=== PATIENT | male | born 1950 | race Caucasian/White ===

== ENCOUNTER 2018-01-11 16:33 | Inpatient (IN) | payer OTHER, BC ==
--- OUTSIDE RECORDS SUMMARY | 2018-01-11 16:50 | XMS REPORT | Clinical Summary ---
:1950 Author Organization [facility] Address [address] [place] [address] Care Team Providers Name Role Phone Drew Stewart MD Primary Care Provider Allergies Active Allergy Reactions Severity Noted Date Comments Sulfa (Sulfonamide Antibiotics) Rash Low 08/15/2017 Current Medications Prescription Sig. Disp. Refills Start End Date Status Date warfarin (COUMADIN) , 30 tablet 1 11/17/19 Active 3 MG tablet 8 19 baclofen (LIORESAL) Take 1 tablet (10 90 tablet 3 01/13/20 Active 10 MG tablet mg total) by 8 18 mouth every 8 (eight) hours for 30 days. simvastatin (ZOCOR) 11 Active 20 MG tablet 8 aspirin (ECOTRIN) Take 81 mg by Active 81 MG enteric mouth daily. coated tablet amIODarone Take 200 mg by Active (PACERONE) 200 MG mouth daily. tablet doxazosin (CARDURA) Take 1 mg by Active 1 MG tablet mouth nightly. escitalopram Take 20 mg by Active (LEXAPRO) 20 MG mouth daily. tablet ramipril (ALTACE) Take 10 mg by Active 10 MG capsule mouth 3 (three) times a day. ALPRAZolam (XANAX) Take 0.25 mg by 09/19/19 Discontinued 0.25 MG tablet mouth 2 (two) 18 times a day as needed for anxiety. ramipril (ALTACE) Take 10 mg by 09/19/19 Discontinued 10 MG capsule mouth 2 (two) 18 times a day. amLODIPine Take 5 mg by 09/19/19 Discontinued (NORVASC) 5 mg mouth 2 (two) 18 tablet times a day. aspirin (ECOTRIN) Take 81 mg by 09/19/19 Discontinued 81 MG enteric mouth daily. 18 coated tablet doxazosin (CARDURA) Take 1 mg by 09/19/19 Discontinued 1 MG tablet mouth 2 (two) 18 times a day. escitalopram Take 20 mg by 09/19/19 Discontinued (LEXAPRO) 20 MG mouth nightly. 18 tablet ezetimibe (ZETIA) Take 10 mg by 09/19/19 Discontinued 10 mg tablet mouth daily. 18 cyanocobalamin 100 Take 100 mcg by 11/18/19 Discontinued MCG tablet mouth daily. 18 esomeprazole Take 20 mg by 09/19/19 Discontinued (NexIUM 24HR) 20 MG mouth daily 18 capsule before breakfast. doxazosin (CARDURA) Take 1 tablet (1 60 tablet 0 10/08/19 1 MG tablet mg total) by 8 18 mouth 2 (two) times a day for 30 days. acetaminophen Take 2 tablets 10/08/19 (TYLENOL) 325 MG (650 mg total) by 8 18 tablet mouth every 6 (six) hours as needed for fever (GREATER than 100.4) for up to 30 days. acetaminophen Take 20.3 mL (650 10/08/19 (TYLENOL) 650 mg total) by 8 18 mg/20.3 mL solution mouth every 6 (six) hours as needed (GREATER than 100.4) for up to 30 days. acetaminophen Insert 1 10/08/19 (TYLENOL) 650 MG suppository (650 8 18 suppository mg total) into the rectum every 6 (six) hours as needed for fever (GREATER than 100.4) for up to 30 days. amIODarone Take 1 tablet 60 tablet 0 10/08/19 (PACERONE) 200 MG (200 mg total) by 8 18 tablet mouth 2 (two) times a day for 30 days. ipratropium Take 2.5 mL (0.5 75 mL 10/08/19 (ATROVENT) 0.02 % mg total) by 8 18 nebulizer solution nebulization 2 (two) times a day for 30 days. ondansetron ODT Take 1 tablet (4 10/08/19 (ZOFRAN-ODT) 4 MG mg total) by 8 18 disintegrating mouth every 8 tablet (eight) hours as needed for nausea or vomiting for up to 30 days. ondansetron Infuse 2 mL (4 mg 20 mL 10/08/19 (ZOFRAN) 4 mg/2 mL total) into a 8 18 injection venous catheter every 8 (eight) hours as needed for nausea or vomiting for up to 30 days. simvastatin (ZOCOR) Take 1 tablet (20 30 tablet 0 10/08/19 20 MG tablet mg total) by 8 18 mouth nightly for 30 days. ramipril (ALTACE) Take 1 capsule 60 capsule 0 10/08/19 10 MG capsule (10 mg total) by 8 18 mouth 2 (two) times a day for 30 days. QUEtiapine Take 1 tablet (50 60 tablet 0 10/08/19 (SEROquel) 50 MG mg total) by 8 18 tablet mouth 2 (two) times a day for 30 days. metoprolol tartrate Take 1 tablet 60 tablet 0 10/08/19 (LOPRESSOR) 100 mg (100 mg total) by 8 18 tablet mouth 2 (two) times a day for 30 days. amLODIPine Take 1 tablet (5 60 tablet 0 10/08/19 (NORVASC) 5 mg mg total) by 8 18 tablet mouth 2 (two) times a day for 30 days. HEPARIN SOD,PORK IN Infuse 1,900 500 mL 10/08/19 0.45% NACL Units/hr into a 8 18 (HEPARIN, PORCINE, venous catheter IN 0.45% NACL) Titrated for 30 25,000 unit/500 mL days. infusion ramelteon (ROZEREM) Take 1 tablet (8 30 tablet 0 10/08/19 8 mg tablet mg total) by 8 18 mouth nightly for 30 days. insulin lispro Inject 0-7 Units 10 mL 12 10/08/19 (HumaLOG) 100 under the skin 8 18 unit/mL injection every 4 (four) hours for 30 days. dextrose 50% Infuse 25 mL 11/18/19 Discontinued syringe (12.5 g total) 8 18 into a venous catheter as needed (If blood glucose is 40 mg/dL or LESS). dextrose 10 % Infuse 40 mL/hr 500 mL 10/08/19 infusion into a venous 8 18 catheter continuously as needed (bedside glucose LESS than 70 mg/dL) for up to 30 days. docusate (COLACE) Take 10 mL (100 10/08/19 50 mg/5 mL liquid mg total) by 8 18 mouth 2 (two) times a day for 30 days. polyethylene glycol Take 17 g by 30 packet 0 11/18/19 Discontinued (MIRALAX) 17 gram mouth daily for 8 18 packet 30 days. bisacodyl Insert 1 10/08/19 (DULCOLAX) 10 mg suppository (10 8 18 suppository mg total) into the rectum daily as needed for constipation for up to 30 days. ezetimibe (ZETIA) Take 1 tablet (10 30 tablet 0 11/18/19 Discontinued 10 mg tablet mg total) by 8 18 mouth daily for 30 days. furosemide (LASIX) Infuse 4 mL (40 120 mL 0 11/18/19 Discontinued 10 mg/mL injection mg total) into a 8 18 venous catheter daily for 30 days. acetylcysteine Take 4 mL by 10/08/19 (MUCOMYST) 200 nebulization 2 8 18 mg/mL (20 %) (two) times a day nebulizer solution for 30 days. HYDROcodone-acetami Take 1 tablet by 09/17/19 nophen (NORCO) mouth every 6 8 18 5-325 mg per tablet (six) hours as needed for moderate pain for up to 10 days. Max Daily Amount: 4 tablets fluticasone 2 sprays (100 mcg 15.8 mL 0 10/08/19 (FLONASE) 50 total) by Each 8 18 mcg/actuation nasal Nare route 2 spray (two) times a day for 30 days. aspirin 81 mg Chew 1 tablet (81 30 tablet 0 11/18/19 Discontinued chewable tablet mg total) daily 8 18 for 30 days. potassium chloride Take 1 capsule 30 capsule 0 11/18/19 Discontinued (MICRO-K) 10 MEQ CR (10 mEq total) by 8 18 capsule mouth daily for 30 days. omeprazole Take 10 mL (20 mg 600 mL 0 10/08/19 (PRILOSEC) 2 mg/mL total) by mouth 2 8 18 oral suspension (two) times a day for 30 days. escitalopram Take 1 tablet (20 30 tablet 0 10/08/19 (LEXAPRO) 20 MG mg total) by 8 18 tablet mouth nightly for 30 days. sodium chloride 0.9 Infuse 30 mL/hr 100 mL 10/08/19 % solution into a venous 8 18 catheter continuously for 30 days. doxazosin (CARDURA) Take 1 tablet (1 60 tablet 0 11/18/19 Discontinued 1 MG tablet mg total) by 8 18 mouth 2 (two) times a day for 30 days. acetaminophen Take 2 tablets 11/18/19 Discontinued (TYLENOL) 325 MG (650 mg total) by 8 18 tablet mouth every 6 (six) hours as needed for fever (GREATER than 100.4) for up to 30 days. acetaminophen 20.3 mL (650 mg 11/18/19 Discontinued (TYLENOL) 650 total) by feeding 8 18 mg/20.3 mL solution tube route every 6 (six) hours as needed (GREATER than 100.4) for up to 30 days. acetaminophen Insert 1 11/18/19 Discontinued (TYLENOL) 650 MG suppository (650 8 18 suppository mg total) into the rectum every 6 (six) hours as needed for fever (GREATER than 100.4) for up to 30 days. amIODarone Take 1 tablet 60 tablet 0 11/18/19 Discontinued (PACERONE) 200 MG (200 mg total) by 8 18 tablet mouth 2 (two) times a day for 30 days. warfarin (COUMADIN) Take 1 tablet 11/18/19 Discontinued 2.5 MG tablet (2.5 mg total) by 8 18 mouth daily. simvastatin (ZOCOR) Take 1 tablet (20 30 tablet 0 11/18/19 Discontinued 20 MG tablet mg total) by 8 18 mouth nightly for 30 days. ramipril (ALTACE) Take 1 capsule 60 capsule 0 11/18/19 Discontinued 10 MG capsule (10 mg total) by 8 18 mouth 2 (two) times a day for 30 days. hydrALAZINE Infuse 0.5 mL (10 1 mL 11/18/19 Discontinued (APRESOLINE) 20 mg total) into a 8 18 mg/mL injection venous catheter every 6 (six) hours as needed for high blood pressure for up to 30 days. QUEtiapine Take 1 tablet (25 30 tablet 0 11/18/19 Discontinued (SEROquel) 25 MG mg total) by 8 18 tablet mouth nightly for 30 days. metoprolol tartrate 1 tablet (50 mg 60 tablet 0 11/18/19 Discontinued (LOPRESSOR) 50 mg total) by feeding 8 18 tablet tube route 2 (two) times a day for 30 days. amLODIPine 1 tablet (5 mg 60 tablet 0 11/18/19 Discontinued (NORVASC) 5 mg total) by feeding 8 18 tablet tube route 2 (two) times a day for 30 days. ramelteon (ROZEREM) Take 1 tablet (8 30 tablet 0 11/18/19 Discontinued 8 mg tablet mg total) by 8 18 mouth nightly for 30 days. docusate (COLACE) Take 10 mL (100 11/18/19 Discontinued 50 mg/5 mL liquid mg total) by 8 18 mouth 2 (two) times a day for 30 days. polyethylene glycol Take 17 g by 30 packet 0 11/18/19 Discontinued (MIRALAX) 17 gram mouth daily for 8 18 packet 30 days. ezetimibe (ZETIA) Take 1 tablet (10 30 tablet 0 11/18/19 Discontinued 10 mg tablet mg total) by 8 18 mouth daily for 30 days. HYDROcodone-acetami Take 20 mL by 11/18/19 Discontinued nophen (HYCET) mouth every 4 8 18 2.5-108.3 mg/5 mL (four) hours as solution needed for moderate pain for up to 20 days. Max Daily Amount: 120 mL HYDROcodone-acetami 1 tablet by 11/18/19 Discontinued nophen (NORCO) feeding tube 8 18 5-325 mg per tablet route every 6 (six) hours as needed for moderate pain for up to 20 days. Max Daily Amount: 4 tablets aspirin 81 mg Chew 1 tablet (81 30 tablet 0 11/18/19 Discontinued chewable tablet mg total) daily 8 18 for 30 days. potassium chloride Take 7.5 mL (10 225 mL 0 11/18/19 Discontinued (KAYCIEL) 20 mEq/15 mEq total) by 8 18 mL solution mouth daily for 30 days. omeprazole Take 10 mL (20 mg 600 mL 0 11/18/19 Discontinued (PRILOSEC) 2 mg/mL total) by mouth 2 8 18 oral suspension (two) times a day for 30 days. escitalopram Take 1 tablet (20 30 tablet 0 11/18/19 Discontinued (LEXAPRO) 20 MG mg total) by 8 18 tablet mouth nightly for 30 days. cyanocobalamin Take 1 tablet 30 tablet 0 11/18/19 Discontinued (VITAMIN B-12) 1000 (1,000 mcg total) 8 18 MCG tablet by mouth daily for 30 days. amIODarone Take 1 tablet 30 tablet 0 12/18/19 (PACERONE) 200 MG (200 mg total) by 8 18 tablet mouth daily for 30 days. aspirin 81 mg Chew 1 tablet (81 30 tablet 0 12/18/19 chewable tablet mg total) daily 8 18 for 30 days. baclofen (LIORESAL) Take 1 tablet (10 90 tablet 0 12/14/19 Discontinued 10 MG tablet mg total) by 8 18 mouth every 8 (eight) hours for 30 days. docusate sodium Take 1 capsule 30 capsule 0 12/18/19 (COLACE) 100 MG (100 mg total) by 8 18 capsule mouth daily for 30 days. doxazosin (CARDURA) Take 1 tablet (1 30 tablet 0 12/18/19 1 MG tablet mg total) by 8 18 mouth daily for 30 days. escitalopram Take 1 tablet (20 30 tablet 0 12/18/19 (LEXAPRO) 20 MG mg total) by 8 18 tablet mouth every evening for 30 days. ezetimibe (ZETIA) Take 1 tablet (10 30 tablet 0 12/18/19 10 mg tablet mg total) by 8 18 mouth nightly for 30 days. furosemide (LASIX) Take 1 tablet (20 30 tablet 0 12/18/19 20 mg tablet mg total) by 8 18 mouth daily for 30 days. metoprolol tartrate 0.5 tablets (12.5 30 tablet 0 12/14/19 Discontinued (LOPRESSOR) 25 mg mg total) by 8 18 tablet feeding tube route every 12 (twelve) hours for 30 days. oxybutynin Take 0.5 tablets 30 tablet 0 12/18/19 (DITROPAN) 5 MG (2.5 mg total) by 8 18 tablet mouth 2 (two) times a day for 30 days. ramipril (ALTACE) Take 1 capsule 30 capsule 0 12/18/19 10 MG capsule (10 mg total) by 8 18 mouth daily for 30 days. simvastatin (ZOCOR) Take 1 tablet (20 30 tablet 0 12/14/19 Discontinued 20 MG tablet mg total) by 8 18 mouth nightly for 30 days. Active Problems Problem Noted Date Late effect of stroke 12/13/2017 Right spastic hemiparesis 12/13/2017 BOUBACAR (obstructive sleep apnea) 12/13/2017 Right foot drop 12/13/2017 Spasticity 12/13/2017 Aphasia as late effect of cerebrovascular accident 11/16/2017 Neurogenic bladder 11/16/2017 CVA (cerebral vascular accident) 10/09/2017 Internal jugular vein thrombosis, right 08/31/2017 Encephalopathy, improving 08/30/2017 Anemia due to blood loss 08/30/2017 Acute ischemic thalamic stroke, left 08/19/2017 Overview: 2009 [place] WITH CAROTID ENDARTERECTOMY Mild protein-calorie malnutrition 08/19/2017 S/P AVR 08/17/2017 Coronary artery disease involving [place] coronary artery of [place] heart 08/17 without angina pectoris Post-op pain 08/17/2017 Acute postoperative pulmonary insufficiency, Ventilator dependent, post 2017 tracheostomy Resolved Problems Problem Noted Date Resolved Date Citrobacter tracheobronchitis 08/30/2017 09/18/2017 Aortic stenosis 08/15/2017 09/18/2017 Encounters Date Type Specialty Care Team Description 12/26/2017 Clinical Support Physical Medicine Telma Hurt, Right spastic hemiparesis (Primary Dx); and Rehabilitation BOUBACAR (obstructive sleep apnea); Spasticity; Late effect of stroke; Right foot drop; Neurogenic bladder; Aphasia as late effect of cerebrovascular accident 12/13/2017 Office Visit Physical Medicine Telma Hurt, Late effect of stroke (Primary Dx); and Rehabilitation Right spastic hemiparesis; Aphasia as late effect of cerebrovascular accident; BOUBACAR (obstructive sleep apnea); Right foot drop; Spasticity; Neurogenic bladder 10/09/2017 [facility] Rehabilitation Samina Mc V., Right hemiparesis ( Primary Dx); - Encounter MD Aphasia as late effect of cerebrovascular accident; 11/17/2017 Neurogenic bladder; Cerebrovascular accident (CVA), unspecified mechanism; Coronary artery disease involving [place] coronary artery of [place] heart without angina pectoris 09/18/2017 Orders Only Procedural Lui, [place]ne Cardiology 09/04/2017 Anesthesia Event Cardiac Intensive Marcell, Salma Flynn MD 09/04/2017 Procedure Pass Cardiothoracic Surgery 09/04/2017 Surgery Cardiothoracic [facility] of Faraz Devries MD Tracheostomy tube with Protex 8.0mm 08/28/2017 Procedure Pass Cardiac Intensive Care 08/24/2017 Anesthesia Event Cardiothoracic Miky, Tone Surgery David, PIPE STRESS ENGINEER 08/24/2017 Procedure Pass Cardiothoracic Surgery 08/24/2017 Surgery Cardiothoracic [facility] Tracheostomy using Faraz Devries MD 8.0mm Portex 08/18/2017 Procedure Pass Cardiac Intensive Care 08/17/2017 [facility] Cardiac Intensive [facility] Acute postoperative pulmonary insufficiency (Primary Dx); - Encounter Salma Devries MD S/P AVR; 09/19/2017 Coronary artery disease involving [place] coronary artery of [place] heart without angina pectoris 08/17/2017 Procedure Pass Cardiothoracic Surgery 08/17/2017 Surgery CardiothAlley Kirby AORTIC VALVE Faraz Devries MD REPLACEMENT WITH 23MM TRIFECTA [facility] 08/15/2017 [facility] Radiology De Jesus, Encounter Tami, BANG 08/15/2017 Pre-Admit Testing Pre-Admission [facility] Preop testing ( Primary Dx); Appointment Testing MD Kayce Nonrheumatic aortic valve stenosis 08/15/2017 Office Visit Cardiovascular [facility] Nonrheumatic aortic valve stenosis; MD Kayce Coronary artery disease of [place] artery of [place] heart with stable angina pectoris 08/15/2017 Anesthesia Event Cardiac Intensive Salma Welch APRN after 01/10/2017 Immunizations Name Dates Previously Given Next Due FLUCELVAX QUAD PF (0.5mL syringe) 09/07/2017, 08/24/2017 Pneumococcal Conjugate 13-Valent 09/07/2017 Family History Medical History Relation Name Comments Heart disease Brother Heart disease Father Heart disease Mother Heart disease Sister Relation Name Status Comments Brother Father Mother Sister Social History Tobacco Use Types Packs/Day Years Used Date Never Smoker Smokeless Tobacco: Never Used Alcohol Use Drinks/Week oz/Week Comments Yes OCCASIONAL Sex Assigned at Date Recorded Not on file Last Filed Vital Signs Vital Sign Reading Time Taken Blood Pressure 135/76 12/26/2017 1:21 PM CDT Pulse 63 12/26/2017 1:21 PM CDT Temperature 36.3 C (97.4 F) 11/17/2017 11:25 AM CDT Respiratory Rate 16 11/17/2017 11:25 AM CDT Oxygen Saturation 99% 11/17/2017 11:25 AM CDT Inhaled Oxygen Concentration - - Weight 77.3 kg (170 lb 6.4 oz) 11/17/2017 4:56 AM CDT Height 172.7 cm (5' 8") 10/09/2017 8:11 PM [employer]IN[employer] MANAGER Body Mass Index 25.91 11/17/2017 4:56 AM CDT Plan of Treatment Date Type Specialty Care Team Description 01/23/2018 Office Visit Physical Medicine and Hurt, Telma Devries MD Rehabilitation [address] [address] Health Maintenance Due Date Last Done Comments SHINGRIX VACCINE (#1) 1999 ZOSTER VACCINE 2009 PNEUMOCOCCAL POLYSACCHARIDE VACCINE AGE 65 2014 AND OVER INFLUENZA VACCINE 03/07/2018 09/07/2017, 08/24/2017 COLON CANCER SCREENING 09/09/2027 09/09/2017 PNEUMOCOCCAL-13 Completed 09/07/2017 Implants Implanted Type Area Broadcast Systems Engineer Device Expiration Model / Identifier Date Serial / Lot Valve Aortic Hemo Peric Tiss W/[place] Tech Cuff 23mm Trifecta - [id number] - [id number] Cardiovascular N/A: [facility] 02/12/2021 TFGT [id number] / Implanted: Qty: 1 on 08/17/2017 by [facility] MD Implants Heart STRUCTURAL [id number] / HEART [id number] Clip Ligtng Weck Hemoclip Plus W/ Tape Ti Med - [id number] Medical Clips for N /A: N/A TELEFLEX [id number] / Implanted: 08/17/2017 (Quantity not on file) Internal Use MEDICAL / Clip Ligtng Weck Hemoclip Plus W/ Tape Ti Strngpnt - [id number] Medical Clips for N/A: N/A WECK CLOSURE [id number] / Implanted: 08/17/2017 (Quantity not on file) Internal Use SYSTEMS / Clip Ligtng Weck Hemoclip Plus W/ Tape Ti Med - [id number] Medical Clips for N /A: N/A TELEFLEX [id number] / Implanted: 08/24/2017 (Quantity not on file) Internal Use MEDICAL / Patch Biosurg Selnt Fibrin Absrbl 9.5x4.8cm Tachosil - [id number] Surgical N/A : N/A JACK [id number] / Implanted: 08/17/2017 (Quantity not on file) Implants; BIOSCIENCE / Expanders; Extenders; Surgical Wires Patch Biosurg Selnt Fibrin Absrbl 9.5x4.8cm Tachosil - [id number] Surgical N/A : N/A JACK [id number] / Implanted: 08/17/2017 (Quantity not on file) Implants; BIOSCIENCE / Expanders; Extenders; Surgical Wires Patch Biosurg Selnt Fibrin Absrbl 9.5x4.8cm Tachosil - [id number] Surgical N/A : N/A JACK [id number] / Implanted: 08/17/2017 (Quantity not on file) Implants; BIOSCIENCE / Expanders; Extenders; Surgical Wires [place] Perph Vasclr Ptfe 1.2x10cm 1.65mm - [id number] Vascular Graft N/A: N/A BARD PERIPHERAL 02/01/2022 [id number] / Implanted: 08/17/2017 (Quantity not on file) VASCULAR / [id number] [place] Perph Vasclr Ptfe 1.2x10cm 1.65mm - [id number] Vascular Graft N/A: N/A BARD PERIPHERAL 06/03/2022 [id number] / Implanted: 08/17/2017 (Quantity not on file) VASCULAR / [id number] Explanted Type Area Broadcast Systems Engineer Device Expiration Model / Identifier Date Serial / Lot Lead Pace Galileo Mycrdl Unipol Tmpry Streamline - [id number] Cardiovascular N/A : [employer] [place] - [id number] / Implanted: 08/17/2017 (Quantity not on file) Implants N/A CARDIAC SRGRY / Lead Pace Galileo Mycrdl Unipol Tmpry Streamline - [id number] Cardiovascular N/A : [employer] [place] - [id number] / Implanted: 08/17/2017 (Quantity not on file) Implants N/A CARDIAC SRGRY / Procedures Procedure Name Priority Date/Time Associated Diagnosis Comments DC NEEDLE EMG GUIDANCE Routine 12/26/2017 1:15 Right spastic Results for this FOR CHEMODENERVATION PM CDT hemiparesis procedure are in the results section. DC CHEMODENERVATION ONE Routine 12/26/2017 1:15 Right spastic Results for this EXTREMITY 1-4 MUSCLE PM CDT hemiparesis procedure are in the results section. TRACHEOSTOMY REPLACEMENT Routine 09/17/2017 12:24 Acute postoperative Results for this PM [employer]IN[employer] MANAGER pulmonary procedure are in insufficiency the results S/P AVR section. Coronary artery disease involving [place] coronary artery of [place] heart without angina pectoris TRACHEOSTOMY REPLACEMENT Routine 09/13/2017 3:23 Acute postoperative Results for this PM [employer] MANAGER pulmonary procedure are in insufficiency the results section. TRACHEOSTOMY REPLACEMENT Routine 09/03/2017 10:38 Acute postoperative Results for this AM [employer]IN[employer] MANAGER pulmonary procedure are in insufficiency the results section. ECHOCARDIOGRAM 2D Routine 09/01/2017 4:07 Results for this COMPLETE W MMODE PM [employer]ANT [employer]IN[employer] MANAGER procedure are in SPECTRAL COLOR DOPPLER the results (83736) section. HC CATH DUAL LUMEN PICC Routine 08/28/2017 2:26 S/P AVR Results for this AM [employer]IN[employer] MANAGER procedure are in the results section. HC US GUIDED VASCULAR Routine 08/28/2017 2:26 S/P AVR Results for this ACCESS AM [employer]IN[employer] MANAGER procedure are in the results section. HC CVL PICC INSERT 5 YRS Routine 08/28/2017 2:26 S/P AVR Results for this OR > AM [employer]ANT [employer]INARY MANAGER procedure are in the results section. INTUBATION Routine 08/23/2017 9:11 Acute postoperative Results for this AM [employer]IN[employer] MANAGER pulmonary procedure are in insufficiency the results section. ECHOCARDIOGRAM 2D Routine 08/19/2017 2:44 Results for this COMPLETE W MMODE PM [employer]IN[employer] MANAGER procedure are in SPECTRAL COLOR DOPPLER the results (63488) section. INTUBATION Routine 08/19/2017 1:49 Acute postoperative Results for this AM [employer]IN[employer] MANAGER pulmonary procedure are in insufficiency the results section. EEG AWAKE/DROWSY LESS STAT 08/18/2017 1:27 Results for this THAN 41 MIN PM [employer]IN[employer] MANAGER procedure are in the results section. ANESTHESIA GERMAN Routine 08/17/2017 5:52 PM [employer]IN[employer] MANAGER Procedure Note - Amado Wong MD - 08/17/2017 5:49 PM [employer]IN[employer] MANAGER Procedure Performed: GERMAN Start Time: 08/17/2017 10:49 AM End Time: 08/17/2017 3:49 PM Preanesthesia Checklist: Patient identified, IV assessed, risks and benefits discussed, monitors and equipment assessed, procedure being performed at surgeon's request, anesthesia consent obtained. General Procedure Information Diagnostic Indications for Echo: assessment of surgical repair Physician Requesting Echo: [facility] Location performed: OR Intubated Bite block placed Heart visualized Probe Insertion: Easy Probe Type: Multiplane Modalities: 2D only, color flow mapping, continuous wave Doppler and pulse wave Doppler Echocardiographic and Doppler Measurements Ventricles Right Ventricle: Cavity size normal. Hypertrophy present. Thrombus not present. Global function normal. Ejection Fraction 60%. Left Ventricle: Cavity size normal. Hypertrophy not present. Thrombus not present. Global Function normal. Valves Aortic Valve: Annulus calcified. Stenosis severe. Regurgitation +1. Leaflets calcified. Leaflet motions restricted. Specific leaflet segments with abnormal motions are described in the following comments: All Mitral Valve: Annulus normal. Regurgitation absent. Leaflets normal. Leaflet motions normal. Tricuspid Valve: Annulus normal. Regurgitation absent. Leaflets normal. Leaflet motions normal. Pulmonic Valve: Annulus normal. Stenosis not present. Regurgitation absent. Aorta Ascending Aorta: Size normal. Dissection not present. Plaque thickness less than 3 mm. Mobile plaque not present. Aortic Arch: Size normal. Dissection not present. Plaque thickness less than 3 mm. Mobile plaque not present. Descending Aorta: Size normal. Dissection not present. Plaque thickness less than 3 mm. Mobile plaque not present. Atria Right Atrium: Size normal. Spontaneous echo contrast not present. Thrombus not present. Tumor not present. Device not present. Left Atrium: Size normal. Spontaneous echo contrast not present. Thrombus not present. Tumor not present. Device not present. Left atrial appendage normal. Septa Atrial Septum: Intra-atrial septal morphology normal. Ventricular Septum: Intra-ventricular septum morphology normal. Other Findings Pericardium: normal Pleural Effusion: none Pulmonary Arteries: normal Pulmonary Venous Flow: normal Anesthesia Information Anesthesiologist: AMADO WONG Echocardiogram Comments: 23 mm bioprosthesis. No PVL. NL EF. No effusion after chest closure DC AN ELECTIVE ENDOTRACHEAL Routine 08/17/2017 5:43 PM [employer]IN[employer] MANAGER Results for this AIRWAY procedure are in the results section. PA CATHETER Routine 08/17/2017 5:43 PM [employer]AURANT [employer]INARY MANAGER CENTRAL LINE Routine 08/17/2017 5:43 PM RESTAURANT C[employer]INARY MANAGER ARTERIAL LINE Routine 08/17/2017 5:43 PM RESTAURANT [employer]INARY MANAGER after 01/10/2017 Results Botulinum Toxin Injection (12/26/2017 1:15 PM) Narrative Telma Hurt MD 12/26/20172:38 PM Botulinum Injection Date/Time: 12/26/2017 1:27 PM Performed by: TELMA HURT Authorized by: TELMA HURT Consent: Consent obtained:Written Consent given by:Patient Risks discussed:Bleeding, excessive weakness, muscle atrophy, venous thrombosis and pain and discomfort Benefits discussed:Decreased muscle tightness, increased joint range of motion and decreased pain [place] protocol: Procedure explained and questions answered to patient or proxy's satisfaction: yes Test results available and properly labeled: no Relevant documents present and verified: yes Imaging studies available: no Required blood products, implants, devices, and special equipment available: no Site/side marked: no Immediately prior to procedure a time out was called: no Patient identity confirmed:Verbally with patient and provided demographic data Pre-procedure details: Limited electromyography confirmed needle location within the muscle: Yes In some muscles, electrical stimulation was used to localize muscle: No Procedure details: Agent Botulinum Toxin:Dysport Total Units Injected:1000 Dysport Medications Administered:1,000 Units abobotulinumtoxinA 500 unit Upper Extremity Muscles: Flexor Carpi Radialis - Left Units: Flexor Carpi Radialis - Right Units:250 Flexor Carpi Ulnaris - Left Units: Flexor Carpi Ulnaris - Right Units:250 Flexor Digitorium Profundus - Left Units: Flexor Digitorium Profundus - Right Units:250 Flexor Digitorium Superficialis - Left Units: Flexor Digitorium Superficialis - Right Units:250 EMG Guidance Used: emg guidance used Number of EMG Guidance Used:1 Post-procedure details: Patient tolerance of procedure:Tolerated well, no immediate complications Comments: Benefits discussed included, but were not limited to decreased muscle tightness, increased joint range of motion, and decreased pain. Risks discussed included but not limited to pain and discomfort, bleeding excessive weakness, venous thrombosis, and muscle atrophy. Details of Procedure: Muscles to be treated were identified using anatomical landmarks described by Oraliaet al;(1994) Skin was cleaned with alcohol.A hollow monopolar needle was introduced to the target muscles. Prior to injection, the needle plunger was aspirated to make sure that the needle was not within a blood vessel. There was no blood retrieved on aspiration. Prothrombin time with INR (11/16/2017 4:20 AM)Only the most recent of29 resultswithin the time period is included. Component Value Ref Range Prothrombin time 24.8 (H) 12.0 - 15.0 sec INR 2.2 Comment: The International Normalized Ratio (INR) is a therapeutic monitoring tool for patients who are stable on oral anticoagulant therapy. An INR of 2.0-3.0 is suggested for deep vein thrombosis/pulmonary embolism. Specimen Performing Laboratory Blood [facility] DEPARTMENT OF PATHOLOGY AND GENOMIC MEDICINE [address] [place] [id number] POC glucose (11/13/2017 5:04 PM)Only the most recent of201 resultswithin the time period is included. Component Value Ref Range POC glucose 93 65 - 99 mg/dL Comment: [facility] Notified RN Meter ID: [id number] Research Mechanic: Jonel Cullen Specimen Performing Laboratory [facility] DEPARTMENT OF PATHOLOGY AND GENOMIC MEDICINE [address] [place] [address]695 CBC with platelet and differential (11/01/2017 5:05 PM)Only the most recent of31 resultswithin the time period is included. Component Value Ref Range WBC 7.79 4.50 - 11.00 k/uL RBC 4.22 (L) 4.40 - 6.00 m/uL HGB 11.8 (L) 14.0 - 18.0 g/dL HCT 37.9 (L) 41.0 - 51.0 % MCV 89.8 82.0 - 100.0 fL MCH 28.0 27.0 - 34.0 pg MCHC 31.1 31.0 - 37.0 g/dL RDW - SD 43.9 37.0 - 55.0 fL MPV 9.4 8.8 - 13.2 fL Platelet count 357 150 - 400 k/uL Nucleated RBC 0.00 /100 WBC Neutrophils 69.1 (H) 39.0 - 69.0 % Lymphocytes 20.3 (L) 25.0 - 45.0 % Monocytes 7.8 0.0 - 10.0 % Eosinophils 1.8 0.0 - 5.0 % Basophils 0.6 0.0 - 1.0 % Immature granulocytes 0.4Comment: "Immature granulocytes" 0.0 - 1.0 % (promyelocytes, myelocytes, metamyelocytes) Specimen Performing Laboratory Blood [facility] DEPARTMENT OF PATHOLOGY AND GENOMIC MEDICINE [address] [place] [address] Estimated GFR (11/01/2017 1:11 PM)Only the most recent of40 resultswithin the time period is included. Component Value Ref Range GFR Non Af Amer 67 mL/min/1.73 m2 GFR Af Amer 81 mL/min/1.73 m2 Comment: Chronic kidney disease: <60 mL/min/1.73m2 Kidney failure: <15 mL/min/1.73m2 The estimated GFR is calculated from the IDMS-traceable Modification of Diet in Renal Disease Equation. The accuracy of the calculation is poor when the creatinine is normal. Calculated values >90 mL/min/1.73m2 are not reported. This equation has not been validated in children (<18 years), women, the elderly (>70 years), or ethnic groups other than Caucasians and Americans. Specimen Performing Laboratory Plasma specimen [facility] DEPARTMENT OF PATHOLOGY AND GENOMIC MEDICINE [address] [place] [phone] Basic metabolic panel (11/01/2017 1:11 PM)Only the most recent of39 resultswithin the time period is included. Component Value Ref Range Sodium 139 135 - 148 mEq/L Potassium 3.7 3.5 - 5.0 mEq/L Chloride 96 (L) 98 - 112 mEq/L CO2 29 24 - 31 mEq/L Anion gap 14 7 - 15 mEq/L Comment: Starting from November , anion gap calculation no longer incorporates potassium. Please note the change. BUN 18 8 - 23 mg/dL Creatinine 1.1 0.7 - 1.2 mg/dL Glucose 85 65 - 99 mg/dL Calcium 9.5 8.8 - 10.2 mg/dL Specimen Performing Laboratory Plasma specimen [facility] DEPARTMENT OF PATHOLOGY AND GENOMIC MEDICINE [address] [place] [address] XR Chest 1 Vw Portable (10/22/2017 8:36 AM)Only the most recent of41 resultswithin the time period is included. Specimen Performing Laboratory [facility] [address] [place] [address] Narrative EXAMINATION:XR CHEST 1 VW PORTABLE CLINICAL HISTORY:Post ventilator COMPARISON:To a previous examination from 09/18/2017 IMPRESSION: Changes related midline sternotomy are present. The cardiomediastinal silhouette pulmonary vessels are prominent. The lungs are hypoventilated. [facility]-[id number] Procedure Note Interface, Radiology Results Incoming - 10/22/2017 10:12 AM CDT EXAMINATION: XR CHEST 1 VW PORTABLE CLINICAL HISTORY: Post ventilator COMPARISON: To a previous examination from 09/18/2017 IMPRESSION: Changes related midline sternotomy are present. The cardiomediastinal silhouette pulmonary vessels are prominent. The lungs are hypoventilated. [facility]-[id number] CBC hemogram (10/22/2017 5:00 AM)Only the most recent of11 resultswithin the time period is included. Component Value Ref Range WBC 7.81 4.50 - 11.00 k/uL RBC 3.71 (L) 4.40 - 6.00 m/uL HGB 10.6 (L) 14.0 - 18.0 g/dL HCT 33.2 (L) 41.0 - 51.0 % MCV 89.5 82.0 - 100.0 fL MCH 28.6 27.0 - 34.0 pg MCHC 31.9 31.0 - 37.0 g/dL RDW - SD 43.9 37.0 - 55.0 fL MPV 9.6 8.8 - 13.2 fL Platelet count 302 150 - 400 k/uL Nucleated RBC 0.00 /100 WBC Specimen Performing Laboratory Blood [facility] DEPARTMENT OF PATHOLOGY AND GENOMIC MEDICINE [address] [place] [phone] Magnesium level (10/15/2017 4:00 AM)Only the most recent of42 resultswithin the time period is included. Component Value Ref Range Magnesium 2.2 1.6 - 2.4 mg/dL Specimen Performing Laboratory Plasma specimen [facility] DEPARTMENT OF PATHOLOGY AND GENOMIC MEDICINE [address] [place] [address] [place] Modified Barium Swallow (10/11/2017 2:42 PM) Specimen Performing Laboratory [facility] [address] [place] [address] Narrative EXAMINATION:FL MODIFIED BARIUM SWALLOW CLINICAL HISTORY:DYSPHAGIAOROPHARYNGEALHAS ATTRIBUTABLE CAUSE COMPARISON:None. Fluoroscopy time: 2.4 minutes FINDINGS: The patient was given multiple consistencies of barium. There was flash penetration with thin liquids. No aspiration. IMPRESSION: Flash penetration with thin liquids. Please refer to Speech Pathology report for further details. [facility]-[id number] Procedure Note Interface, Radiology Results Incoming - 10/11/2017 3:46 PM [employer]IN[employer] MANAGER EXAMINATION: FL MODIFIED BARIUM SWALLOW CLINICAL HISTORY: DYSPHAGIA OROPHARYNGEAL HAS ATTRIBUTABLE CAUSE COMPARISON: None. Fluoroscopy time: 2.4 minutes FINDINGS: The patient was given multiple consistencies of barium. There was flash penetration with thin liquids. No aspiration. IMPRESSION: Flash penetration with thin liquids. Please refer to Speech Pathology report for further details. [facility]-[id number] Urinalysis, automated with microscopy (10/10/2017 5:40 AM) Component Value Ref Range Color, UA Red Appearance, UA Cloudy Specific gravity, UA 1.015 1.001 - 1.035 pH, UA 7.0 5.0 - 8.5 Protein, UA 2+ (A) Negative Glucose, UA Negative Negative Ketones, UA Negative Negative Bilirubin, UA Negative Negative Blood, UA Moderate (A) Negative Nitrite, UA Negative Negative Urobilinogen, UA <2.0 <2.0 Leukocyte esterase, UA Small (A) Negative WBC, UA 117 (H) 0 - 1 /HPF RBC, UA >180 (H) 0 - 1 /HPF Bacteria, UA Few None seen WBC clumps, UA Few (A) Yeast, UA None seen Yeast with pseudohyphae, UA None seen Specimen Performing Laboratory Urine [facility] DEPARTMENT OF PATHOLOGY AND GENOMIC MEDICINE [address] [place] [address], [place] [address] Zinc level, serum (09/19/2017 1:15 AM) Component Value Ref Range Zinc 74 60 - 120 ug/dL Comment: INTERPRETIVE INFORMATION: Zinc, Serum or Plasma Circulating zinc concentrations are dependent on albumin status and are depressed with malnutrition. Zinc may also be lowered with infection, inflammation, stress, oral contraceptives, and . Zinc may be elevated with zinc supplementation or fasting. Elevated zinc concentrations may interfere with copper absorption. Test developed and characteristics determined by [facility]. See Compliance Statement B: [facility] Performed by [facility], [address] [place] [phone] [email or web address], Loc Rodriguez MD - Lab. Director Specimen Performing Laboratory Blood [facility] [address] [place] [phone] Vitamin C level, plasma (09/19/2017 1:15 AM) Component Value Ref Range Vitamin C, plasma 69 23 - 114 umol/L Comment: INTERPRETIVE DATA: Vitamin C (Ascorbic Acid), Plasma Vitamin C concentrations lower than 11 umol/L indicate deficiency. Concentrations between 11 and 23 umol/L are consistent with a moderate risk of deficiency due to inadequate tissue stores. Vitamin C concentration is reported as micromoles per liter (umol/L). To convert concentration to milligrams per deciliter (mg/dL), multiply the result by 0.0176. Test developed and characteristics determined by [facility]. See Compliance Statement B: [facility] Performed by [facility], [address] [place] [phone] [email or web address], Loc Rodriguez MD - Lab. Director Specimen Performing Laboratory Plasma specimen [facility] [address] [place] [address]69 Vitamin D 25 hydroxy level (09/19/2017 1:15 AM) Component Value Ref Range Vitamin D, 25-hydroxy 25.2 (L) 30.0 - 150.0 ng/mL Comment: This assay reports the sum of 25-hydroxy vitamin D3 and 25-hydroxy vitamin D2. Reference range: 0-17 years: Deficiency: less than 20ng/mL Optimum level: greater than or equal to 20 ng/mL. 18 years and older: Deficiency: less than 20ng/mL Insufficiency: 20-29 ng/mL Optimum Level: 30-80 ng/mL The assay reportable range is 3.4155.9 ng/mL. Levels higher than 150 ng/mL may be associated with toxicity. If toxicity is clinically suspected and the reported result is >155.9 ng/mL,contact lab for alternative methods to obtain a definitivelevel. If separate quantitation of 25-hydroxy vitamin D3 and 25-hydroxy vitamin D2 is needed, please contact lab for alternative methods. Specimen Performing Laboratory Blood [facility] [place] [address] Potassium level (09/18/2017 3:56 PM)Only the most recent of9 resultswithin the time period is included. Component Value Ref Range Potassium 4.9 3.5 - 5.0 mEq/L Specimen Performing [place] [address] Phosphorus level (09/18/2017 3:56 PM)Only the most recent of40 resultswithin the time period is included. Component Value Ref Range Phosphorus 4.5 2.4 - 4.5 mg/dL Specimen Performing Laboratory Plasma specimen [facility] [place] [address] Ionized calcium (09/18/2017 3:56 PM)Only the most recent of16 resultswithin the time period is included. Component Value Ref Range pH 7.45 Ionized calcium 1.14 1.11 - 1.32 mmol/L Specimen Performing Laboratory Plasma specimen [facility] [place] [address] Pv duplex venous lower extremity (09/18/2017 12:27 PM)Only the most recent of2 resultswithin the time period is included. Specimen Performing Laboratory [facility] [address] [place] [address] Narrative Vascular Ultrasound Laboratory Lower Extremity Venous Report [address] [place] [address] Pat.Name:ELSIE MENDOZA Pat.ID:[id number] .Date: 09/18/2017 Refer.MD:ALLEY SAN MD Exam Time: 11:31:00 AM Study Type:LE Venous Height:68inWeight: 199lb BSA: 2.04 m2 DOBAge:1950,67Y Sex: MALESonogrphr: Layne Poe RVT Pat. Stat.:Inpatient Room:[place] [address] TapeVol: FLORA, CPT - 4: 06146 Echo Event ID:[id number] Order ID:[id number] Reason for Study:History of DVT of the left soleal vein. Race:C SUMMARY: DUPLEX SCAN OBSERVATIONS Deep VeinsSuperficial Veins RightLeft RightLeft EIV GSV (prox) NormalNormal CFV Normal Normal (above knee) Femoral Normal Normal GSV (dist) Normal Normal Profunda Normal Normal (below knee) Popliteal Normal Normal PT (prox) Normal NormalSSV Normal Normal PT (dist) Normal Normal Peroneal Normal Normal Soleal Obstructed RIGHT:There is normal compressibility with no evidence of echogenic material noted within the lumen of the visualized veins.Colorflow and Doppler signals are normal. LEFT: Soleal vein in the mid calf is non-compressible with echogenic material inside of lumen with absent colorflow and Doppler signals. There is normal compressibility with no evidence of echogenic material noted within the lumen of the remaining visualized veins. Colorflow and Doppler signals are normal. PRELIMINARY FINDINGS 1. Deep venous thrombosis of the left soleal vein in the mid calf. The results given to INDIRA Hughes12:10pm 09/18/2017 PHYSICIAN INTERPRETATION Venous examination of the both lower extremities demonstrated a deep venous thrombosis of the left soleal vein . No change compared to previous exam. Signed 09/19/2017 03:25 PM Clemente Lopez MD, RPVI Procedure Note Interface, Radiology Results In - 09/19/2017 3:26 PM [facility] Vascular Ultrasound Laboratory Lower Extremity Venous Report [id number] [address] Pat.Name: ELSIE MENDOZA Pat.ID: [id number] .Date: 09/18/2017 Refer.MD: ALLEY SAN MD Exam Time: 11:31:00 AM Study Type:LE Venous Height: 68in Weight: 199lb BSA: 2.04 m2 Age: 1 1950,67Y Sex: MALE Sonogrphr: Layne Poe RVT Pat. Stat.:Inpatient Room: [address] Vol: YM, CPT - 4: 06037 Echo Event ID:[id number] Order ID: [id number] Reason for Study:History of DVT of the left soleal vein. Race: C SUMMARY: DUPLEX SCAN OBSERVATIONS Deep Veins Superficial Veins Right Left Right Left EIV GSV (prox) Normal Normal CFV Normal Normal (above knee) Femoral Normal Normal GSV (dist) Normal Normal Profunda Normal Normal (below knee) Popliteal Normal Normal PT (prox) Normal Normal SSV Normal Normal PT (dist) Normal Normal Peroneal Normal Normal Soleal Obstructed RIGHT:There is normal compressibility with no evidence of echogenic material noted within the lumen of the visualized veins.Colorflow and Doppler signals are normal. LEFT: Soleal vein in the mid calf is non-compressible with echogenic material inside of lumen with absent colorflow and Doppler signals. There is normal compressibility with no evidence of echogenic material noted within the lumen of the remaining visualized veins. Colorflow and Doppler signals are normal. PRELIMINARY FINDINGS 1. Deep venous thrombosis of the left soleal vein in the mid calf. The results given to INDIRA Hughes 12:10pm 09/18/2017 PHYSICIAN INTERPRETATION Venous examination of the both lower extremities demonstrated a deep venous thrombosis of the left soleal vein . No change compared to previous exam. Signed 09/19/2017 03:25 PM Clemente Lopez MD, RPVI TRACHEOSTOMY REPLACEMENT (09/17/2017 12:24 PM) Niko Klein MD 09/17/2017 12:29 PM Tracheostomy Replacement Date/Time: 09/16/2017 12:25 PM Performed by: CON KLEIN Authorized by: CON KLEIN Consent: The procedure was performed in an emergent situation. Patient consent: the patient's understanding of the procedure matches consent given Imaging studies: imaging studies available Patient identity confirmed: arm band and hospital-assigned identification number Time out: Immediately prior to procedure a "time out" was called to verify the correct patient, procedure, equipment, contracting support specialist and site/side marked as required. Indications: malfunction Local anesthesia used: yes Anesthesia: Local anesthesia used: yes Local Anesthetic: lidocaine 2% without epinephrine Anesthetic total: 2 mL Sedation: Patient sedated: no Preparation: Patient was prepped and draped in the usual sterile fashion. Tube cuff: single cuff Tube size: 6.0 mm Cuff inflation: deflated Cuff inflation technique: minimal leak technique used Patient tolerance: Patient tolerated the procedure well with no immediate complications Type and screen (09/17/2017 2:30 AM)Only the most recent of8 resultswithin the time period is included. Component Value Ref Range ABO grouping A Rh type POS Antibody screen (gel) NEG Specimen Performing Laboratory Blood [facility] DEPARTMENT OF PATHOLOGY AND GENOMIC MEDICINE [address] [place] [address] ECG 12 lead (09/16/2017 4:48 AM)Only the most recent of18 resultswithin the time period is included. Component Value Ref Range Ventricular rate 84 Atrial rate 84 DC interval 156 QRSD interval 102 QT interval 422 QTC interval 498 P axis 1 53 QRS axis 1 31 T wave axis 43 EKG impression Normal sinus rhythm-T wave abnormality, consider inferior ischemia-Prolonged QT-Abnormal ECG-In automated comparison with ECG of 15-SEP-2017 04:07,-No significant change was found- Specimen Performing Laboratory [facility] [address] [place] [address] IR Initial Feeding Tube (09/15/2017 9:47 AM) Specimen Performing Laboratory [facility] [address] [place] [address] Narrative EXAMINATION:IR GASTROSTOMY CATHETER INITIAL PLACEMENT CLINICAL HISTORY:Insertion of PEG tube COMPARISON:None. Performing Radiologist: Nick Obrien MD Assistants: None Anesthesia Type: Moderate Sedation: Under physician supervision, Versed and fentanyl were administered intravenously for moderate sedation. Pulse oximetry, heart rate, and blood pressure were continuously monitored by an independent trained observer present. The physician spent 22 minutes of face to face sedation time with the patient. Lidocaine 1% was used for local anesthetic. Pre Procedure Diagnosis: Need for long-term enteral feeding. Recent Aortic valve replacement and CABG. Post Procedure Diagnosis: Status post gastrostomy catheter placement Procedure: 1.Fluoroscopic guidance for needle placement. 2.Gastropexy suture placement under fluoroscopic guidance. 3Gastrostomy catheter placement under fluoroscopic guidance Technique:Written informed consent was obtained prior to the procedure. The patient was placed in a supine position the procedure table.A timeout was performed verifying the patient's name, date of , medical record number, and procedure to be performed.All team members involved in the procedure were present and verbally confirmed. The abdomen was prepped and draped in usual sterile fashion. All elements of maximal sterile barrier technique were utilized. The patient was given glucagon 1 mg intravenously. Air was then injected through the indwelling nasogastric catheter to distend the stomach. Once adequate distention was achieved, a safe percutaneous access location in the left upper abdomen was sterilely prepared and draped in the routine manner. Lidocaine 1% was used for local anesthetic. Using fluoroscopic guidance, an 18-gauge needle was advanced successfully into the gastric lumen, over the lower gastric body. Injection of contrast through the needle promptly opacified rugal folds and verified needle tip position within the gastric lumen. A gastropexy T-fastener was then deployed through the 18-gauge needle. Two additional gastropexy T-fasteners were deployed in a similar fashion. A skin incision was then made, an 18-gauge needle was again advanced into the gastric lumen, over the lower gastric body, within the needle directed towards the gastric fundus. Contrast injected through the needle promptly opacified rugal folds and verified needle tip position within the gastric lumen. A 0.035 inch stiff Amplatz wire was advanced through the needle and coiled within the gastric lumen. The needle was then removed, and following sequential dilatation, a 16-Tristanian ALYSA gastrostomy catheter was then placed. The retention balloon was inflated with 5 mL of sterile water. Contrast injected through the newly placed gastrostomy catheter confirmed appropriate catheter tip position with opacification of rugal folds. The patient tolerated the procedure well. Total Fluoroscopic dose: Reference air Kerma 15 mGy. Complications:None Specimens Removed:None Estimated Blood Loss:Less than 2 mL Blood/Blood Products Administered:None Grafts/Implants:As described in the above report Impression: Successful placement of a 16-Tristanian ALYSA gastrostomy catheter, as detailed above. Orders were written in the medical record to keep the patient NPO except medications until 8:00 AM on 09/16/2017 and to suction all contents from the gastrostomy catheter every 6 hours until 8:00 AM on 09/16/2017. If the patient is without significant abdominal pain or distention, the gastrostomy catheter may then be used. [facility]-[id number] Procedure Note Hm Interface, Radiology Results Incoming - 09/15/2017 11:35 AM RESTAURANT CULINARY MANAGER EXAMINATION: IR GASTROSTOMY CATHETER INITIAL PLACEMENT CLINICAL HISTORY: Insertion of PEG tube COMPARISON: None. Performing Radiologist: Nick Obrien MD Assistants: None Anesthesia Type: Moderate Sedation: Under physician supervision, Versed and fentanyl were administered intravenously for moderate sedation. Pulse oximetry, heart rate, and blood pressure were continuously monitored by an independent trained observer present. The physician spent 22 minutes of face to face sedation time with the patient. Lidocaine 1% was used for local anesthetic. Pre Procedure Diagnosis: Need for long-term enteral feeding. Recent Aortic valve replacement and CABG. Post Procedure Diagnosis: Status post gastrostomy catheter placement Procedure: 1. Fluoroscopic guidance for needle placement. 2. Gastropexy suture placement under fluoroscopic guidance. 3 Gastrostomy catheter placement under fluoroscopic guidance Technique: Written informed consent was obtained prior to the procedure. The patient was placed in a supine position the procedure table. A timeout was performed verifying the patient's name, date of , medical record number, and procedure to be performed. All team members involved in the procedure were present and verbally confirmed. The abdomen was prepped and draped in usual sterile fashion. All elements of maximal sterile barrier technique were utilized. The patient was given glucagon 1 mg intravenously. Air was then injected through the indwelling nasogastric catheter to distend the stomach. Once adequate distention was achieved, a safe percutaneous access location in the left upper abdomen was sterilely prepared and draped in the routine manner. Lidocaine 1% was used for local anesthetic. Using fluoroscopic guidance, an 18-gauge needle was advanced successfully into the gastric lumen, over the lower gastric body. Injection of contrast through the needle promptly opacified rugal folds and verified needle tip position within the gastric lumen. A gastropexy T-fastener was then deployed through the 18-gauge needle. Two additional gastropexy T-fasteners were deployed in a similar fashion. A skin incision was then made, an 18-gauge needle was again advanced into the gastric lumen, over the lower gastric body, within the needle directed towards the gastric fundus. Contrast injected through the needle promptly opacified rugal folds and verified needle tip position within the gastric lumen. A 0.035 inch stiff Amplatz wire was advanced through the needle and coiled within the gastric lumen. The needle was then removed, and following sequential dilatation, a 16-Tristanian ALYSA gastrostomy catheter was then placed. The retention balloon was inflated with 5 mL of sterile water. Contrast injected through the newly placed gastrostomy catheter confirmed appropriate catheter tip position with opacification of rugal folds. The patient tolerated the procedure well. Total Fluoroscopic dose: Reference air Kerma 15 mGy. Complications: None Specimens Removed: None Estimated Blood Loss: Less than 2 mL Blood/Blood Products Administered: None Grafts/Implants: As described in the above report Impression: Successful placement of a 16-Tristanian ALYSA gastrostomy catheter, as detailed above. Orders were written in the medical record to keep the patient NPO except medications until 8:00 AM on 09/16/2017 and to suction all contents from the gastrostomy catheter every 6 hours until 8:00 AM on 09/16/2017. If the patient is without significant abdominal pain or distention, the gastrostomy catheter may then be used. [facility]-[id number] Partial thromboplastin time, activated (09/15/2017 2:12 AM)Only the most recent of21 resultswithin the time period is included. Component Value Ref Range PTT 33.4 23.0 - 36.0 sec Comment: PTT therapeutic range for unfractionated heparin is 61.0-112.0 seconds which corresponds to Anti-Xa 0.3-0.7 U/ml. Specimen Performing Laboratory Blood [facility] DEPARTMENT OF PATHOLOGY AND GENOMIC MEDICINE [address] [place] [address], [place] [address] Hemoglobin & hematocrit (09/13/2017 3:52 PM)Only the most recent of7 resultswithin the time period is included. Component Value Ref Range HGB 9.0 (L) 14.0 - 18.0 g/dL HCT 28.7 (L) 41.0 - 51.0 % Specimen Performing Laboratory Blood [facility] DEPARTMENT OF PATHOLOGY AND GENOMIC MEDICINE [address] [place] [address] TRACHEOSTOMY REPLACEMENT (09/13/2017 3:23 PM) Niko Crabtree MD 09/13/20173:23 PM Tracheostomy Replacement Date/Time: 09/13/2017 3:19 PM Performed by: CLEMENTINA CRABTREE Authorized by: CLEMENTINA CRABTREE Consent: Verbal consent obtained. Risks and benefits: risks, benefits and alternatives were discussed Consent given by: patient Patient identity confirmed: arm band and verbally with patient Time out: Immediately prior to procedure a "time out" was called to verify the correct patient, procedure, equipment, contracting support specialist and site/side marked as required. Indications: malfunction Local anesthesia used: no Anesthesia: Local anesthesia used: no Sedation: Patient sedated: yes Sedatives: midazolam Analgesia: fentanyl Tube cuff: single cuff Tube size: 6.0 (shiley) mm Cuff inflation: deflated and leak present Cuff type: air Patient tolerance: Patient tolerated the procedure well with no immediate complications Comments: Good color change Saturation 98% XR Abdomen 1 Vw Portable (09/11/2017 9:01 AM)Only the most recent of10 resultswithin the time period is included. Specimen Performing Laboratory [facility] [address] [place] [address] Narrative EXAMINATION:XR ABDOMEN 1 VW PORTABLE CLINICAL HISTORY:Check feeding tube placement COMPARISON:September 06, 2017 FINDINGS: NG tube is no longer seen. There is a Dobbhoff feeding catheter distal to the ligament of Treitz. Persistent nonspecific distention of small bowel loops in the mid to lower abdomen. Scattered air and fecal material throughout the visualized colon IMPRESSION: Dobbhoff catheter distal to the ligament of Treitz Nonspecific distention small bowel loops [id number] Procedure Note Interface, Radiology Results Incoming - 09/11/2017 9:06 AM [employer]IN[employer] MANAGER EXAMINATION: XR ABDOMEN 1 VW PORTABLE CLINICAL HISTORY: Check feeding tube placement COMPARISON: September 06, 2017 FINDINGS: NG tube is no longer seen. There is a Dobbhoff feeding catheter distal to the ligament of Treitz. Persistent nonspecific distention of small bowel loops in the mid to lower abdomen. Scattered air and fecal material throughout the visualized colon IMPRESSION: Dobbhoff catheter distal to the ligament of Treitz Nonspecific distention small bowel loops [id number] Ionized calcium, arterial (09/10/2017 1:15 AM)Only the most recent of28 resultswithin the time period is included. Component Value Ref Range Ionized calcium, arterial 1.11 1.11 - 1.32 mmol/L Specimen Performing Laboratory Blood [facility] DEPARTMENT OF PATHOLOGY AND [facility] [address] [place] [address] Manual differential (09/10/2017 1:15 AM)Only the most recent of7 resultswithin the time period is included. Component Value Ref Range Manual differential PERFORMED Neutrophils 80.0 (H) 39.0 - 69.0 % Lymphocytes 11.0 (L) 25.0 - 45.0 % Monocytes 6.0 0.0 - 10.0 % Eosinophils 2.0 0.0 - 5.0 % Basophils 1.0 0.0 - 1.0 % Metamyelocytes 0 % Promyelocytes 0 % Platelet slide review Kameron adequate Anisocytosis Moderate Polychromasia Moderate Specimen Performing Laboratory [facility] DEPARTMENT OF PATHOLOGY AND [address] [address] Arterial blood gas (09/10/2017 1:15 AM)Only the most recent of37 resultswithin the time period is included. Component Value Ref Range pH, arterial 7.47 (H) 7.35 - 7.45 pCO2, arterial 46 (H) 35 - 45 mmHg pO2, arterial 126 (H) 80 - 90 mmHg Bicarbonate, arterial 33.1 (H) 21.0 - 28.0 mmol/L Base excess, arterial 9 (H) -2 - 2 mEq/L O2 saturation, arterial 99 95 - 100 % Specimen Performing Laboratory Blood [facility] DEPARTMENT OF PATHOLOGY [address] [address] Occult blood, stool (09/09/2017 10:00 AM) Component Value Ref Range Occult blood, stool Negative for occult blood. Comment: Specimen Information Specimen Source: Stool Specimen Site: Not otherwise specified Specimen Performing Laboratory Stool - Not otherwise specified [facility] DEPARTMENT OF PATHOLOGY AND [address] [address] Transfuse RBC (09/08/2017 12:29 PM)Only the most recent of7 resultswithin the time period is included.Urinalysis screen and microscopy, with reflex to culture (09/08/2017 11:30 AM)Only the most recent of4 resultswithin the time period is included. Component Value Ref Range Specimen site Catheterized Color, UA Red Appearance, UA Cloudy Specific gravity, UA 1.011 1.001 - 1.035 pH, UA 6.0 5.0 - 8.5 Protein, UA 2+ (A) Negative Glucose, UA 1+ (A) Negative Ketones, UA Negative Negative Bilirubin, UA Negative Negative Blood, UA Moderate (A) Negative Nitrite, UA Negative Negative Urobilinogen, UA <2.0 <2.0 Leukocyte esterase, UA Negative Negative WBC, UA 39 (H) 0 - 1 /HPF RBC, UA >180 (H) 0 - 1 /HPF Bacteria, UA None seen None seen Yeast, UA None seen Yeast with pseudohyphae, UA None seen Specimen Performing Laboratory Urine [facility] DEPARTMENT OF PATHOLOGY AND GENOMIC MEDICINE [address] [place] [address] Gram stain (09/08/2017 11:30 AM)Only the most recent of8 resultswithin the time period is included. Component Value Ref Range Gram stain result Few WBC's No organisms seen Comment: Specimen Information Specimen Source: Urine Specimen Site: Catheterized Specimen Performing Laboratory Urine - Catheterized [facility] DEPARTMENT OF PATHOLOGY AND [facility] [address] [place] [address] Urine culture (09/08/2017 11:30 AM)Only the most recent of4 resultswithin the time period is included. Component Value Ref Range Urine culture isolate No growth after 2 days. Comment: Specimen Information Specimen Source: Urine Specimen Site: Catheterized Specimen Performing Laboratory Urine - Catheterized [facility] DEPARTMENT OF PATHOLOGY AND GENOMIC MEDICINE [address] [place] [address] Prepare RBC, 1 Units (09/06/2017 3:06 AM)Only the most recent of6 resultswithin the time period is included. Component Value Ref Range Product name Apheresis -1 LR #1 Unit number [id number] Product code [id number] Dispense status Transfused Blood expiration date 20171006 Blood type code 6200 Blood type A POSITIVE Specimen Performing Laboratory [facility] DEPARTMENT OF PATHOLOGY AND GENOMIC MEDICINE [address] [place] [address] TRACHEOSTOMY REPLACEMENT (09/03/2017 10:38 AM) Niko Crabtree MD 09/03/2017 10:38 AM Tracheostomy Replacement Date/Time: 09/03/2017 10:35 AM Performed by: CLEMENTINA CRABTREE Authorized by: CLEMENTINA CRABTREE Consent: Verbal consent obtained. Consent given by: power of attorney general (daughter at bedside) Patient identity confirmed: arm band Time out: Immediately prior to procedure a "time out" was called to verify the correct patient, procedure, equipment, contracting support specialist and site/side marked as required. Indications: malfunction Local anesthesia used: no Anesthesia: Local anesthesia used: no Sedation: Patient sedated: yes Sedatives: fentanyl and propofol Tube type: non-fenestrated Tube cuff: single cuff Tube size: 8.0 (Protex) mm Cuff inflation: inflated Cuff type: air Patient tolerance: Patient tolerated the procedure well with no immediate complications Comments: CXR ordered Echocardiogram complete w contrast and 3D if needed (09/01/2017 4:07 PM) Specimen Performing Laboratory [facility] [address] [place] [address] Narrative Echocardiography Report [address] [place] [address] Pat.Name:ELSIE MENDOZA.ID:[id number] .Date: 09/01/2017 Refer.MD:ALLEY SAN MD Exam Time: 2:31:00 PMStudy Type:Routine Echo Height:67.72in Weight:199lb BSA: 2.04 m2 DOBAge:1950,67Y Sex: MALEBP:174/82 HR:62 bpmSonogrphr: REGINA Santoro Pat. Stat.:Inpatient Room:[facility] Study Status:Final Echo Event ID:[id number] Order ID:[id number] Reason for Study:[place] Valvular Regurgitation - Routine surveillance (<1 y) of moderate or severe valvular regurgitation without a change in clinical status or cardiac exam; s/p AVR/CAB. Rule out pericardial effusion History / Clinical:Hypertension Procedures:2D Echo, Colorflow Doppler, Portable, Intravenous Optison Contrast Race:C SUMMARY: LV EF is hyperdynamic. Normal prosthetic aortic valve velocity and gradient. Diastolic dysfunction Grade III (Severe): Impaired relaxation with restrictive LV filling pressures. FINDINGS: LV: LV size is normal. There is moderate concentric LV hypertrophy.LV EF is hyperdynamic. Overall wall motion is hyperdynamic.Estimated EF is >70%. RV: RV size is normal. RV systolic function is normal. LA: LA volume is severely enlarged. RA: RA size is normal. AO: Aortic root diameter is normal. SON: No pericardial effusion. AV: Bioprosthetic aortic valve. Normal prosthetic valve velocity andgradient. Surgical Prosthetic AV Doppler velocity index is0.51 (normal>0.25). MV: Focal calcification of mitral leaflets. PV: Pulmonic valve not well seen. TV: No structural TV abnormalities noted. Logan: Diastolic dysfunction Grade III (Severe): Impaired relaxationwith restrictive LV filling pressures. Other:Insufficient TR jet to estimate PA systolic pressure. MEASUREMENTS: 2D Parasternal Long [place] LVOT 2 cmLA Ds5.1 cm LVIDd5.2 cmIndex 2.5 cm/m Ao Rtd 3.1 cm Index1.5 cm/m LVIDs3.7 cm LV Wgej053.4 g(122-174) LV%fs 28.8 % LVM Index 129.1 g/m2 IVSd 1.1 cmRWT0.5 LVPWd1.4 cm LA Sng Plane LA Area 28.6 cm2(8.8-23.4) LA Vol 105.1 ml Index51.5 ml/m LA LngAx 6 cm RA Sng Plane RA Area 15.5 cm2(8.3-19.5) RA Vol43.9 ml Index21.5 ml/m RA LngAx 4 cm DOPPLER AV For Flow/ADRIÁN AV pkVel 204.3 cm/s (100-170) AV AC/ET 0.4 AV mnVel 127.2 cm/Veronica TVI 31.8 cm AV pkPG 16.7 mmHgAVpkAcRt 5032.6 cm/s2 AV Mean G8.3 mmHgAV DeRt 817 cm/s2 AV AC 98 msec (83-118) AV Area1.6 cm2(3-5) AV ET250 msec LVOT For Flow LVOT Area3.1 cm2 LVOT SV 51.3 ml LVOTpkVel 79.7 cm/sHR69.6 bpm LVOTpkPG 2.5 mmHgLVOT CO 3.6 l/min LVOTmnPG 1.7 mmHgLVOT CI 1.8 l/m/m2 LVOT TVI16.3 cm Signed 09/01/2017 05:03 PM Karlos Christensen M.D. Procedure Note Interface, Radiology Results In - 09/01/2017 5:03 PM [facility] Echocardiography Report [address] [place] [address] Pat.Name: ELSIE MENDOZA Pat.ID: [id number] .Date: 09/01/2017 Refer.MD: ALLEY SAN MD Exam Time: 2:31:00 PM Study Type:Routine Echo Height: 67.72in Weight: 199lb BSA: 2.04 m2 Age: 1 1950,67Y Sex: MALE BP: 174/82 HR: 62 bpm Sonogrphr: REGINA Santoro Pat. Stat.:Inpatient Room: [facility] Study Status:Final Echo Event ID:[id number] Order ID: [id number] Reason for Study:[place] Valvular Regurgitation - Routine surveillance (<1 y) of moderate or severe valvular regurgitation without a change in clinical status or cardiac exam; s/p AVR/CAB. Rule out pericardial effusion History / Clinical:Hypertension Procedures:2D Echo, Colorflow Doppler, Portable, Intravenous Optison Contrast Race: C SUMMARY: LV EF is hyperdynamic. Normal prosthetic aortic valve velocity and gradient. Diastolic dysfunction Grade III (Severe): Impaired relaxation with restrictive LV filling pressures. FINDINGS: LV: LV size is normal. There is moderate concentric LV hypertrophy. LV EF is hyperdynamic. Overall wall motion is hyperdynamic. Estimated EF is >70%. RV: RV size is normal. RV systolic function is normal. LA: LA volume is severely enlarged. RA: RA size is normal. AO: Aortic root diameter is normal. SON: No pericardial effusion. AV: Bioprosthetic aortic valve. Normal prosthetic valve velocity and gradient. Surgical Prosthetic AV Doppler velocity index is 0.51 (normal>0.25). MV: Focal calcification of mitral leaflets. PV: Pulmonic valve not well seen. TV: No structural TV abnormalities noted. Logan: Diastolic dysfunction Grade III (Severe): Impaired relaxation with restrictive LV filling pressures. Other: Insufficient TR jet to estimate PA systolic pressure. MEASUREMENTS: 2D Parasternal Long [place] LVOT 2 cm LA Ds 5.1 cm LVIDd 5.2 cm Index 2.5 cm/m Ao Rtd 3.1 cm Index 1.5 cm/m LVIDs 3.7 cm LV Mass 263.4 g (122-174) LV%fs 28.8 % LVM Index 129.1 g/m2 IVSd 1.1 cm RWT 0.5 LVPWd 1.4 cm LA Sng Plane LA Area 28.6 cm2 (8.8-23.4) LA Vol 105.1 ml Index 51.5 ml/m LA LngAx 6 cm RA Sng Plane RA Area 15.5 cm2 (8.3-19.5) RA Vol 43.9 ml Index 21.5 ml/m RA LngAx 4 cm DOPPLER AV For Flow/ADRIÁN AV pkVel 204.3 cm/s (100-170) AV AC/ET 0.4 AV mnVel 127.2 cm/s AV TVI 31.8 cm AV pkPG 16.7 mmHg AVpkAcRt 5032.6 cm/s2 AV Mean G 8.3 mmHg AV DeRt 817 cm/s2 AV AC 98 msec (83-118) AV Area 1.6 cm2 (3-5) AV ET 250 msec LVOT For Flow LVOT Area 3.1 cm2 LVOT SV 51.3 ml LVOTpkVel 79.7 cm/s HR 69.6 bpm LVOTpkPG 2.5 mmHg LVOT CO 3.6 l/min LVOTmnPG 1.7 mmHg LVOT CI 1.8 l/m/m2 LVOT TVI 16.3 cm Signed 09/01/2017 05:03 PM Karlos Christensen M.D. Pv duplex venous upper extremity (09/01/2017 3:30 PM)Only the most recent of2 resultswithin the time period is included. Specimen Performing Laboratory [facility] [address] [place] [address] Narrative Vascular Ultrasound Laboratory Upper Extremity Venous Report [address] [place] [address] Pat.Name:ELSIE MENDOZA Pat.ID:[id number] .Date: 09/01/2017 Refer.MD:ALLEY SAN MD Exam Time: 3:09:00 PMStudy Type:UE Venous Height:68inDOBAge:1950,67 Y Sex: MALESonogrphr: Cony Mckee RVT Pat. Stat.:Inpatient Room:[place] [address] TapeVol: [place], Echo Event ID:[id number] Order ID:[id number] Reason for Study:Left arm swelling. History of aortic stenosis status post AVR, CAD status post CABG x 1. Race:C SUMMARY: DUPLEX SCAN OBSERVATIONS Right Left IJ Normal SubclavianNormal Normal Axillary Normal Brachial Partial Basilic Partial Cephalic Normal RIGHT:There is normal compressibility and no evidence of echogenic material noted within the lumen of the subclavian vein. Colorflow and Doppler signals are normal. PIC catheter is visualized in the subclavian vein. LEFT: One of the brachial vein in the proximal upper arm is partially compressible with echogenic material within the lumen and colorflow and Doppler signals are present. The basilic vein in the proximal upper arm is partially compressible with echogenic material within the lumen and colorflow and Doppler signals are present. The remaining visualized veins are patent. PRELIMINARY FINDINGS 1. Partial deep venous thrombosis of one of the brachial vein in the left proximal upper arm. 2. Superficial partial deep venous thrombosis of the basilic vein in the left proximal upper arm. Result was given to Noe Delacruz RN at 3:30 pm on 09/03/2017. PHYSICIAN INTERPRETATION Venous examination of the left upper extremity and neck demonstrated a partial deep venous thrombosis of one of the brachial vein and a superficial partial deep venous thrombosis of the basilic vein . Signed 09/01/2017 11:37 PM Eliana Payan MD, RPVI Procedure Note Interface, Radiology Results In - 09/01/2017 11:37 PM [facility] Vascular Ultrasound Laboratory Upper Extremity Venous Report [id number]Name: ELSIE MENDOZA.ID: [id number] .Date: 09/01/2017 Refer.MD: ALLEY SAN MD Exam Time: 3:09:00 PM Study Type:UE Venous Height: 68in Age: 1 1950,67Y Sex: MALE Sonogrphr: Cony Mckee RVT Pat. Stat.:Inpatient Room: [address] Vol: [place], Echo Event ID:[id number] Order ID: [id number] Reason for Study:Left arm swelling. History of aortic stenosis status post AVR, CAD status post CABG x 1. Race: C SUMMARY: DUPLEX SCAN OBSERVATIONS Right Left IJ Normal Subclavian Normal Normal Axillary Normal Brachial Partial Basilic Partial Cephalic Normal RIGHT: There is normal compressibility and no evidence of echogenic material noted within the lumen of the subclavian vein. Colorflow and Doppler signals are normal. PIC catheter is visualized in the subclavian vein. LEFT: One of the brachial vein in the proximal upper arm is partially compressible with echogenic material within the lumen and colorflow and Doppler signals are present. The basilic vein in the proximal upper arm is partially compressible with echogenic material within the lumen and colorflow and Doppler signals are present. The remaining visualized veins are patent. PRELIMINARY FINDINGS 1. Partial deep venous thrombosis of one of the brachial vein in the left proximal upper arm. 2. Superficial partial deep venous thrombosis of the basilic vein in the left proximal upper arm. Result was given to Noe Delacruz RN at 3:30 pm on 09/03/2017. PHYSICIAN INTERPRETATION Venous examination of the left upper extremity and neck demonstrated a partial deep venous thrombosis of one of the brachial vein and a superficial partial deep venous thrombosis of the basilic vein . Signed 09/01/2017 11:37 PM Eliana Payan MD, RPVI Sputum culture (09/01/2017 3:20 PM)Only the most recent of3 resultswithin the time period is included. Component Value Ref Range Sputum culture isolate Normal oral josette and (A) Comment: Specimen Information Specimen Source: Sputum Specimen Site: Induced Sputum culture isolate Staphylococcus aureus Rare This organism is Methicillin Resistant. (A) Sputum culture isolate Amended report-no organism identified (A) Specimen Performing Laboratory Sputum - Induced [facility] DEPARTMENT OF PATHOLOGY AND GENOMIC MEDICINE [address] [place] [address] Organism Antibiotic Method Susceptibility Staphylococcus aureus Ampicillin ALYSA mcg/mL: Resistant Staphylococcus aureus Clindamycin ALYSA <=0.5 mcg/mL: Susceptible Staphylococcus aureus Cefazolin ALYSA mcg/mL: Resistant Staphylococcus aureus Erythromycin ALYSA <=0.5 mcg/mL: Susceptible Staphylococcus aureus Linezolid ALYSA 2 mcg/mL: Susceptible Staphylococcus aureus Minocycline ALYSA <=1 mcg/mL: Susceptible Staphylococcus aureus Oxacillin ALYSA >2 mcg/mL: Resistant Staphylococcus aureus Penicillin G ALYSA >1 mcg/mL: Resistant Staphylococcus aureus Rifampin ALYSA <=0.5 mcg/mL: Susceptible Staphylococcus aureus Trimethoprim/Sulfamethoxazo ALYSA <=0.5/9.5 mcg/mL: Susceptible le Staphylococcus aureus Tetracycline ALYSA <=0.5 mcg/mL: Susceptible Staphylococcus aureus Vancomycin ALYSA 1 mcg/mL: Susceptible Smear review (08/30/2017 1:57 AM)Only the most recent of2 resultswithin the time period is included. Component Value Ref Range Platelet slide review Kameron adequate Anisocytosis Moderate Polychromasia Moderate Spherocytes Occasional Specimen Performing Laboratory [facility] DEPARTMENT OF PATHOLOGY AND GENOMIC MEDICINE [address] [place] [address] MRI Brain Wo Contrast (08/28/2017 9:53 PM)Only the most recent of2 resultswithin the time period is included. Specimen [facility] [address] [place] [address] Narrative EXAMINATION: MRI BRAIN WO CONTRAST COMPARISON: August 21, 2017 CLINICAL HISTORY STROKE. TECHNIQUE: Multiplanar multisequence examination was performed without contrast. FINDINGS: The area of diffusion restriction in the left basal ganglia is stable in size and configuration. Slight extension into the upper aspect of the left cerebral peduncle in the midbrain is stable. There is stable mass effect. The ventricles and subarachnoid spaces are dilated. Chronic microvascular ischemic changes in both cerebral hemispheres have remained stable. Areas of chronic hemosiderin staining staining have remained stable. There is no new acute infarction. IMPRESSION: Stable acute ischemic changes in the left basal ganglia without mass effect or hemorrhage. Otherwise, stable chronic changes. [facility]-[id number] Procedure Note [facility], Radiology Results Incoming - 08/28/2017 10:23 PM [employer]AUR[employer] CULINARY MANAGER EXAMINATION: MRI BRAIN WO CONTRAST COMPARISON: August 21, 2017 CLINICAL HISTORY STROKE. TECHNIQUE: Multiplanar multisequence examination was performed without contrast. FINDINGS: The area of diffusion restriction in the left basal ganglia is stable in size and configuration. Slight extension into the upper aspect of the left cerebral peduncle in the midbrain is stable. There is stable mass effect. The ventricles and subarachnoid spaces are dilated. Chronic microvascular ischemic changes in both cerebral hemispheres have remained stable. Areas of chronic hemosiderin staining staining have remained stable. There is no new acute infarction. IMPRESSION: Stable acute ischemic changes in the left basal ganglia without mass effect or hemorrhage. Otherwise, stable chronic changes. [facility]-[id number] PICC INSERTION (08/28/2017 2:26 AM) Niko Abarca NP 08/28/20172:26 AM PICC insertion Date/Time: 08/28/2017 2:22 AM Performed by: LAURI ABARCA Authorized by: LAURI ABARCA Consent: Consent obtained:Emergent situation [place] protocol: Immediately prior to procedure, a time out was called: yes Patient identity confirmed:Arm band and hospital-assigned identification number Pre-procedure details: Hand hygiene: Hand hygiene performed prior to insertion Sterile barrier technique: All elements of maximal sterile technique followed Skin preparation:2% chlorhexidine Skin preparation agent: Skin preparation agent completely dried prior to procedure Sedation: Sedation type: Precedex gtt. Anesthesia (see MAR for exact dosages): Anesthesia method:Local infiltration Local anesthetic:Lidocaine 1% w/o epi Route of administration:Subcutaneous PICC Line Placement Details (Will create an LDA): Patient position:Flat Indication:Vesicants Location:Right basilic Device Type:Non-valved Catheter size:5 Fr PICC Characteristics: Catheter Brand:[email or web address] PICC External Catheter Length (cm):0 Internal Catheter Length (cm):43 Total Catheter Length (cm):43 Catheter Lot Number:[id number] Catheter Expiration Date:05/06/2019 Procedure Details: Landmarks identified: yes Ultrasound guidance: yes Sterile ultrasound techniques: Sterile gel and sterile probe covers were used Number of attempts:1 Number of PICC kits used during procedure:1 Purpose of procedure:PICC Placement Successful PICC Placement: Yes Patency/Placement:Flushes without difficulty, flushed with 10 mL normal saline, positive blood return and injection cap placed Dressing/Securement:Antimicrobial dressing applied and catheter securement device Blood Loss Amount:Less than 20 mL Post-Procedure Details: Post-procedure:Dressing applied Tip placement confirmed by chest x-ray: Yes Tip position adjusted per chest x-ray: Yes Tip placement confirmed by repeat chest x-ray: Yes Patient tolerance of procedure:Tolerated well, no immediate complications Thyroid stimulating hormone (08/26/2017 2:00 AM)Only the most recent of2 resultswithin the time period is included. Component Value Ref Range TSH 1.32 0.27 - 4.20 uIU/mL Specimen Performing Laboratory Plasma specimen [facility] DEPARTMENT OF PATHOLOGY AND GENOMIC MEDICINE [address] [place] [address] T4, free (08/26/2017 2:00 AM)Only the most recent of2 resultswithin the time period is included. Component Value Ref Range T4, free 0.7 (L) 0.9 - 1.7 ng/dL Specimen Performing Laboratory Plasma specimen [facility] DEPARTMENT OF PATHOLOGY AND [address] [address] Hepatic function panel (08/26/2017 2:00 AM) Component Value Ref Range Albumin 2.4 (L) 3.5 - 5.0 g/dL Total bilirubin 0.6 0.0 - 1.2 mg/dL Bilirubin direct 0.3 0.0 - 0.3 mg/dL Alkaline phosphatase 56 40 - 129 U/L Protein 6.2 (L) 6.3 - 8.3 g/dL Comment: [place] 4.6-7.0 g/dL 1 week 4.4-7.6 g/dL 7 months-1year5.1-7.3 g/dL 1-2 years5.6-7.5 g/dL >3 years6.0-8.0 g/dL 18-150 6.3-8.3 g/dL ALT 32 5 - 50 U/L AST 16 10 - 50 U/L Specimen Performing Laboratory Plasma specimen [facility] DEPARTMENT OF PATHOLOGY AND [address] [address] Respiratory culture (08/25/2017 1:35 PM)Only the most recent of2 resultswithin the time period is included. Component Value Ref Range Respiratory culture isolate No normal oral josette isolated. (A) Comment: Specimen Information Specimen Source: Mini bronchial alveolar lavage Specimen Site: LLL (left lower lobe) Respiratory culture isolate Citrobacter koseri Few The performance characteristics of this assay on this isolate were validated by the Microbiology Laboratory at [facility].This source has not been approved by the U.S. Food and Drug Administration.The results are not intended to be used as the sole means for clinical diagnosis or patient management.The Microbiology Laboratory is authorized under the clinical Laboratory Improvement Amendments of 1988 (CLIA-88) to perform high complexity testing. (A) Specimen Performing Laboratory Mini bronchial alveolar lavage - LLL (left [facility] DEPARTMENT OF PATHOLOGY AND GENOMIC lower lobe) [address] [address] Organism Antibiotic Method Susceptibility Citrobacter koseri Ampicillin ALYSA >16 mcg/mL: Resistant Citrobacter koseri Amoxicillin/Clavulanate ALYSA <=2/1 mcg/mL: Susceptible Citrobacter koseri Amikacin ALYSA <=4 mcg/mL: Susceptible Citrobacter koseri Aztreonam ALYSA <=1 mcg/mL: Susceptible Citrobacter koseri Ceftazidime ALYSA <=0.5 mcg/mL: Susceptible Citrobacter koseri Ciprofloxacin ALYSA <=0.5 mcg/mL: Susceptible Citrobacter koseri Ceftriaxone ALYSA <=0.5 mcg/mL: Susceptible Citrobacter koseri Cefuroxime Sodium ALYSA <=4 mcg/mL: Susceptible Citrobacter koseri Cefazolin ALYSA 2 mcg/mL: Susceptible Citrobacter koseri Cefipime ALYSA <=0.5 mcg/mL: Susceptible Citrobacter koseri Cefoxitin ALYSA <=4 mcg/mL: Susceptible Citrobacter koseri Gentamicin ALYSA 1 mcg/mL: Susceptible Citrobacter koseri Imipenem ALYSA <=0.25 mcg/mL: Susceptible Citrobacter koseri Levofloxacin ALYSA <=1 mcg/mL: Susceptible Citrobacter koseri Meropenem ALYSA <=0.125 mcg/mL: Susceptible Citrobacter koseri Tobramycin ALYSA 1 mcg/mL: Susceptible Citrobacter koseri Ampicillin/Sulbactam ALYSA 4/2 mcg/mL: Susceptible Citrobacter koseri Trimethoprim/Sulfamethoxazole ALYSA <=0.5/9.5 mcg/mL: Susceptible Citrobacter koseri Tetracycline ALYSA <=1 mcg/mL: Susceptible Citrobacter koseri Piperacillin/Tazobactam ALYSA 4/4 mcg/mL: Susceptible Citrobacter koseri Ertapenem ALYSA <=0.125 mcg/mL: Susceptible Citrobacter koseri Tigecycline ALYSA <=0.5 mcg/mL: Susceptible Respiratory pathogen panel (08/25/2017 1:35 PM)Only the most recent of2 resultswithin the time period is included. Component Value Ref Range Respiratory pathogen panel Negative for all pathogens tested: Negative for Adenovirus Negative for Coronavirus HKU1 Negative for Coronavirus NL63 Negative for Coronavirus 229E Negative for Coronavirus OC43 Negative for Human Metapneumovirus Negative for Rhinovirus/Enterovirus Negative for Influenza A Negative for Influenza A/H1 Negative for Influenza A/H3 Negative for Influenza A/H1-2009 Negative for Influenza B Negative for Parainfluenza Virus 1 Negative for Parainfluenza Virus 2 Negative for Parainfluenza Virus 3 Negative for Parainfluenza Virus 4 Negative for Respiratory Syncytial Virus Negative for Bordetella pertussis Negative for Chlamydophila pneumoniae Negative for Mycoplasma pneumoniae This real-time PCR assay detects the presence of nucleic acids (RNA or DNA) for the respiratory pathogens listed. A result of "Not-detected" does not exclude the possibility of the presence of one or more pathogens at concentrations less than the detectable limits of the assay. Comment: Specimen Information Specimen Source: Mini bronchial alveolar lavage Specimen Site: LLL (left lower lobe) Specimen Performing Laboratory Mini bronchial alveolar lavage - LLL (left [facility] DEPARTMENT OF PATHOLOGY AND GENOMIC lower lobe) MEDICINE [address] [place] [address] Blood culture, aerobic & anaerobic (08/25/2017 10:40 AM)Only the most recent of4 resultswithin the time period is included. Component Value Ref Range Blood culture isolate No growth after 5 days of incubation. Comment: Specimen Information Specimen Source: Blood Specimen Site: Unspecified Specimen Performing Laboratory Blood [facility] DEPARTMENT OF PATHOLOGY AND GENOMIC MEDICINE [address] [place] [address] Head Wo Contrast (08/24/2017 1:20 AM)Only the most recent of3 resultswithin the time period is included. Specimen Performing Laboratory [facility] [address] [place] [address] Narrative EXAMINATION: CT HEAD WO CONTRAST CLINICAL HISTORY: STROKE COMPARISON:08/19/[address] TECHNIQUE: Noncontrast enhanced images of the brain were obtained from the skull base to the vertex. Both soft tissue and bone reconstruction algorithms were performed. CT scans are performed using radiation dose reduction techniques (iterative reconstruction and/or automated exposure control). Technical factors are evaluated and adjusted to ensure appropriate moderation of exposure. Automated dose management technology is applied to adjust radiation exposure while achieving a diagnostic quality image. FINDINGS: Overall, no significant change when compared to the prior study. No new areas of ischemia. No intracranial hemorrhage or mass occupying lesion. There is a slight interval evolution of the previously described acute ischemic insults involving the left thalamus and internal capsule (posterior limb). Other findings: Stable right frontal operculum and caudate infarcts. Chronic involutional changes. Increased paranasal sinus opacification, nonspecific and possibly related to intubation. IMPRESSION: Slight evolution of the previously described acute ischemic insults involving the left thalamus and posterior limb of the internal capsule. No new intracranial abnormalities. [facility]-[id number] Procedure Note [facility], Radiology Results Incoming - 08/24/2017 1:45 AM [employer]ANT [employer]IN[employer] MANAGER EXAMINATION: CT HEAD WO CONTRAST CLINICAL HISTORY: STROKE COMPARISON: 08/19/[address] TECHNIQUE: Noncontrast enhanced images of the brain were obtained from the skull base to the vertex. Both soft tissue and bone reconstruction algorithms were performed. CT scans are performed using radiation dose reduction techniques (iterative reconstruction and/or automated exposure control). Technical factors are evaluated and adjusted to ensure appropriate moderation of exposure. Automated dose management technology is applied to adjust radiation exposure while achieving a diagnostic quality image. FINDINGS: Overall, no significant change when compared to the prior study. No new areas of ischemia. No intracranial hemorrhage or mass occupying lesion. There is a slight interval evolution of the previously described acute ischemic insults involving the left thalamus and internal capsule (posterior limb). Other findings: Stable right frontal operculum and caudate infarcts. Chronic involutional changes. Increased paranasal sinus opacification, nonspecific and possibly related to intubation. IMPRESSION: Slight evolution of the previously described acute ischemic insults involving the left thalamus and posterior limb of the internal capsule. No new intracranial abnormalities. [facility]-[id number] Fungus smear (08/23/2017 12:30 PM) Component Value Ref Range Fungus smear No fungi observed. Comment: Specimen Information Specimen Source: Bronchial Washing Specimen Site: Right and left lobes Specimen Performing Laboratory Bronchial washing - Right and left lobes [facility] DEPARTMENT OF PATHOLOGY AND GENOMIC MEDICINE [address] [place] [address] Cytomegalovirus by PCR (08/23/2017 12:30 PM) Component Value Ref Range Cytomegalovirus by PCR Not-Detected Not-Detected IU/mL Cytomegalovirus by PCR See link below for PDF Lab ReportComment: Specimen Performing Laboratory Bronchial washing [facility] DEPARTMENT OF PATHOLOGY AND GENOMIC MEDICINE [address] [place] [address] Herpes simplex virus by PCR (08/23/2017 12:30 PM) Component Value Ref Range Herpes virus, PCR Not-Detected Not-Detected Herpes virus, PCR See link below for PDF Lab ReportComment: Specimen Performing Laboratory Bronchial washing [facility] DEPARTMENT OF PATHOLOGY AND GENOMIC MEDICINE [address] [place] [address] AFB culture (08/23/2017 12:30 PM) Component Value Ref Range AFB culture isolate No growth after 6 weeks of incubation. Comment: Specimen Information Specimen Source: Bronchial Washing Specimen Site: Right and left lobes Specimen Performing Laboratory Bronchial washing - Right and left lobes [facility] DEPARTMENT OF PATHOLOGY AND [facility] MEDICINE [address] [place] [address] Nocardia culture (08/23/2017 12:30 PM) Component Value Ref Range Nocardia culture isolate No Nocardia isolated after 7 days. Comment: Specimen Information Specimen Source: Bronchial Washing Specimen Site: Right and left lobes Specimen Performing Laboratory Bronchial washing - Right and left lobes [facility] DEPARTMENT OF PATHOLOGY [address] [address] Legionella culture (08/23/2017 12:30 PM) Component Value Ref Range Legionella culture isolate No Legionella isolated. Comment: Specimen Information Specimen Source: Bronchial Washing Specimen Site: Right and left lobes Specimen Performing Laboratory Bronchial washing - Right and left lobes [facility] DEPARTMENT OF PATHOLOGY [address] [address] AFB stain (08/23/2017 12:30 PM) Component Value Ref Range AFB stain No acid fast bacilli (AFB) seen. Comment: Specimen Information Specimen Source: Bronchial Washing Specimen Site: Right and left lobes Specimen Performing Laboratory Bronchial washing - Right and left lobes [facility] DEPARTMENT OF PATHOLOGY AND GENOMIC MEDICINE [address] [place] [address] Fungus culture (08/23/2017 12:30 PM) Component Value Ref Range Fungus culture isolate No growth after 4 weeks of incubation. Comment: Specimen Information Specimen Source: Bronchial Washing Specimen Site: Right and left lobes Specimen Performing Laboratory Bronchial washing - Right and left lobes [facility] DEPARTMENT OF PATHOLOGY AND GENOMIC [address] [address] INTUBATION (08/23/2017 9:11 AM) Niko Crabtree MD 08/23/20179:11 AM Intubation Date/Time: 08/23/2017 9:09 AM Performed by: CLEMENTINA CRABTREE Authorized by: CLEMENTINA CRABTREE Consent: Consent obtained:Emergent situation [place] protocol: Immediately prior to procedure, a time out was called: yes Patient identity confirmed:Arm band Pre-procedure details: Patient status:Altered mental status Mallampati score:2 Pretreatment medications:Fentanyl Induction:Etomidate and propofol Paralytics:Succinylcholine Procedure details: Preoxygenation:BiPAP CPR in progress: no Intubation method:Oral Technique:Video laryngoscopy Laryngoscope blade:Mac 4 Tube size (mm):8.0 Tube type:Cuffed Number of attempts:1 Ventilation between attempts: no Cricoid pressure: yes Tube visualized through cords: yes Placement assessment: ETT to lip:23 cm Tube secured with:Adhesive tape and ETT hinds Breath sounds:Equal and absent over the epigastrium Placement verification: chest rise, condensation, direct visualization, equal breath sounds, ETCO2 detector and tube exhalation Post-procedure details: Patient tolerance of procedure:Tolerated well, no immediate complications Comments: Patient in impending resp failure DW Dr. San Echocardiogram complete w contrast and 3D if needed (08/19/2017 2:44 PM) Specimen Performing Laboratory [facility] [address] [place] [address] Narrative Echocardiography Report [address] [place] [address] Pat.Name:ELSIE MENDOZA Pat.ID:[id number] .Date: 08/19/2017 Refer.MD:ALLEY SAN MD Exam Time: 1:07:00 PMStudy Type:Routine Echo Height:67.72in Weight:199lb BSA: 2.04 m2 DOBAge:1950,67Y Sex: MALEBP:140/54 HR:81 bpmSonogrphr: Yassine Blake RDCS Pat. Stat.:Inpatient Room:[place] [address] Study Status:Final Echo Event ID:[id number] Order ID:[id number] Reason for Study:STROKE History / Clinical:Hypertension Procedures:2D Echo, Colorflow Doppler, Portable Race:C SUMMARY: LV EF is normal.Estimated EF is 55-59%. RV systolic function is lower limits of normal. Small posterior pericardial effusion. Normal prosthetic valve velocity and gradient. FINDINGS: LV: LV size is normal. There is severe concentric LV hypertrophy.LV EF is normal. Difficult to assess regional wallmotion; however it appears grossly normal. Septal motionis paradoxical. Estimated EF is 55-59%. RV: RV size is normal. RV systolic function is lower limits of normal. LA: LA volume is mildly enlarged. RA: RA size is normal. AO: Aortic root diameter is normal. SON: Small posterior pericardial effusion. There is an anterior spaceconsistent with a prominent epicardial fat pad. AV: Bioprosthetic aortic valve ([address] Kiran Trifecta valve). A traceof aortic regurgitation. Normal prosthetic valve velocityand gradient. Surgical Prosthetic AV Doppler velocityindex is 0.60 (normal>0.25). MV: Mild thickening and calcification of mitral leaflets. Focal calcificationof mitral leaflets. Mild mitral annular calcification. PV: Pulmonic valve not well seen. A trace of pulmonic regurgitation. TV: No structural TV abnormalities noted. A trace of tricuspid regurgitation Logan: LV relaxation is impaired. LV filling pressure is normal. Other:Insufficient TR jet to estimate PA systolic pressure. MEASUREMENTS: 2D Parasternal Long [place] LVOT 2.1 cmLA Ds4.6 cm LVIDd4.6 cmIndex 2.2 cm/m Ao An2.1 cm LVIDs2.6 cmAo Rtd 3.6 cm Index1.8 cm/m LV%fs 43.5 % LV Wywt793.4 g(122-174) IVSd 1.9 cmLVM Zfohy816.8 g/m2 LVPWd1.9 cmRWT0.8 LA Sng Plane LA Area 24.5 cm2(8.8-23.4) LA Vol79.3 ml Index38.9 ml/m LA LngAx 5.9 cm RA Sng Plane RA Area 18.4 cm2(8.3-19.5) RA Vol54.6 ml Index26.8 ml/m RA LngAx 5.5 cm DOPPLER AV For Flow/ADRIÁN AV pkVel 228.5 cm/s (100-170) AV AC/ET 0.4 AV mnVel 140.2 cm/Veronica TVI 32 cm AV pkPG 20.9 mmHgAVpkAcRt 3304.4 cm/s2 AV Mean G 10.2 mmHgAV DeRt 999.9 cm/s2 AV AC101 msec (83-118) AV Area2.1 cm2(3-5) AV ET229 msec LVOT For Flow LVOT Area3.5 cm2 LVOT SV 67 ml DDUDvvJhs490.8 cm/sHR93.1 bpm LVOTpkPG 6.5 mmHgLVOT CO 6.2 l/min LVOTmnPG 2.8 mmHgLVOT CI 3.1 l/m/m2 LVOT TVI19.3 cm Signed 08/19/2017 06:55 PM Nayeli Barros MD Procedure Note Interface, Radiology Results In - 08/19/2017 6:55 PM [employer] MANAGER Echocardiography Report [address] [place] [address] Pat.Name: ELSIE MENDOZA Pat.ID: [id number] .Date: 08/19/2017 Refer.MD: ALLEY SAN MD Exam Time: 1:07:00 PM Study Type:Routine Echo Height: 67.72in Weight: 199lb BSA: 2.04 m2 Age: 1 1950,67Y Sex: MALE BP: 140/54 HR: 81 bpm Sonogrphr: Yassine Blake RDCS Pat. Stat.:Inpatient Room: [place] [address] Study Status:Final Echo Event ID:[id number] Order ID: [id number] Reason for Study:STROKE History / Clinical:Hypertension Procedures:2D Echo, Colorflow Doppler, Portable Race: C SUMMARY: LV EF is normal.Estimated EF is 55-59%. RV systolic function is lower limits of normal. Small posterior pericardial effusion. Normal prosthetic valve velocity and gradient. FINDINGS: LV: LV size is normal. There is severe concentric LV hypertrophy. LV EF is normal. Difficult to assess regional wall motion; however it appears grossly normal. Septal motion is paradoxical. Estimated EF is 55-59%. RV: RV size is normal. RV systolic function is lower limits of normal. LA: LA volume is mildly enlarged. RA: RA size is normal. AO: Aortic root diameter is normal. SON: Small posterior pericardial effusion. There is an anterior space consistent with a prominent epicardial fat pad. AV: Bioprosthetic aortic valve ([address] Kiran Trifecta valve). A trace of aortic regurgitation. Normal prosthetic valve velocity and gradient. Surgical Prosthetic AV Doppler velocity index is 0.60 (normal>0.25). MV: Mild thickening and calcification of mitral leaflets. Focal calcification of mitral leaflets. Mild mitral annular calcification. PV: Pulmonic valve not well seen. A trace of pulmonic regurgitation. TV: No structural TV abnormalities noted. A trace of tricuspid regurgitation Logan: LV relaxation is impaired. LV filling pressure is normal. Other: Insufficient TR jet to estimate PA systolic pressure. MEASUREMENTS: 2D Parasternal Long [place] LVOT 2.1 cm LA Ds 4.6 cm LVIDd 4.6 cm Index 2.2 cm/m Ao An 2.1 cm LVIDs 2.6 cm Ao Rtd 3.6 cm Index 1.8 cm/m LV%fs 43.5 % LV Mass 401.4 g (122-174) IVSd 1.9 cm LVM Index 196.8 g/m2 LVPWd 1.9 cm RWT 0.8 LA Sng Plane LA Area 24.5 cm2 (8.8-23.4) LA Vol 79.3 ml Index 38.9 ml/m LA LngAx 5.9 cm RA Sng Plane RA Area 18.4 cm2 (8.3-19.5) RA Vol 54.6 ml Index 26.8 ml/m RA LngAx 5.5 cm DOPPLER AV For Flow/ADRIÁN AV pkVel 228.5 cm/s (100-170) AV AC/ET 0.4 AV mnVel 140.2 cm/s AV TVI 32 cm AV pkPG 20.9 mmHg AVpkAcRt 3304.4 cm/s2 AV Mean G 10.2 mmHg AV DeRt 999.9 cm/s2 AV AC 101 msec (83-118) AV Area 2.1 cm2 (3-5) AV ET 229 msec LVOT For Flow LVOT Area 3.5 cm2 LVOT SV 67 ml LVOTpkVel 127.8 cm/s HR 93.1 bpm LVOTpkPG 6.5 mmHg LVOT CO 6.2 l/min LVOTmnPG 2.8 mmHg LVOT CI 3.1 l/m/m2 LVOT TVI 19.3 cm Signed 08/19/2017 06:55 PM Nayeli Barros MD Pv transcranial Doppler intracranial arteries (08/19/2017 6:30 AM) Specimen Performing Laboratory [facility] [address] Vascular Ultrasound Laboratory Transcranial Doppler Report (TCD) [address] [place] [address] Pat.Name:ELSIE MENDOZA Pat.ID:[id number] .Date: 08/19/2017 Refer.MD:ALLEY SAN MD Exam Time: 4:36:00 AMStudy Type:TCD Height:68inDOBAge:1950,67 Y Sex: MALESonogrphr: Beti Connor RVT Pat. Stat.:Inpatient Room:[place] [address] TapeVol: , CPT - 4: 94922 Echo Event ID:[id number] Order ID:[id number] Reason for Study:Right facial droop and weakness. History of CVA s/p carotid endarterectomy (2008), CAD, prostatectomy (2004), HLD, HTN, aortic stenosis s/p AVR and CABG (08/17/17), prostate cancer. History / Clinical:CAD, HTN, HLD, Aortic stenosis, Prostate Ca, Carotid disease, S/p AVR and CABG Race:C SUMMARY: RIGHT LEFT Antegrade RetrogradeAntegrade Retrograde Ophthalmic Artery+ + RIGHT LEFT Normal Abnormal Not SeenNormal Abnormal Not Seen Siphon ++ MCA+117 + DAWNA ++ OPTICAL GLASS INSPECTOR ++ Basilar + Vertebral ++ ADDITIONAL FINDINGS: 1. There are elevated velocities noted in the right MCA. 2. There are normal mean flow velocities noted in the remaining insonated vessels. PHYSICIAN INTERPRETATION: Right MCA stenosis. Signed 08/19/2017 08:56 AM Eliana Payan MD, RPVI Procedure Note Interface, Radiology Results In - 08/19/2017 8:56 AM [facility] Vascular Ultrasound Laboratory Transcranial Doppler Report (TCD) [address] [place] [address] Pat.Name: ELSIE MENDOZA Pat.ID: [id number] .Date: 08/19/2017 Refer.MD: ALLEY SAN MD Exam Time: 4:36:00 AM Study Type:TCD Height: 68in Age: 1 1950,67Y Sex: MALE Sonogrphr: Beti Connor RVT Pat. Stat.:Inpatient Room: [place] [address] Tape Vol: , CPT - 4: 307[address] Echo Event ID:[id number] Order ID: [id number] Reason for Study:Right facial droop and weakness. History of CVA s/p carotid endarterectomy (2008), CAD, prostatectomy (2004), HLD, HTN, aortic stenosis s/p AVR and CABG (08/17/17), prostate cancer. History / Clinical:CAD, HTN, HLD, Aortic stenosis, Prostate Ca, Carotid disease, S/p AVR and CABG Race: C SUMMARY: RIGHT LEFT Antegrade Retrograde Antegrade Retrograde Ophthalmic Artery + + RIGHT LEFT Normal Abnormal Not Seen Normal Abnormal Not Seen Siphon + + MCA +117 + DAWNA + + OPTICAL GLASS INSPECTOR + + Basilar + Vertebral + + ADDITIONAL FINDINGS: 1. There are elevated velocities noted in the right MCA. 2. There are normal mean flow velocities noted in the remaining insonated vessels. PHYSICIAN INTERPRETATION: Right MCA stenosis. Signed 08/19/2017 08:56 AM Eliana Payan MD, RPVI INTUBATION (08/19/2017 1:49 AM) Narrative Clementina Crabtree MD 08/19/20171:49 AM Intubation Date/Time: 08/19/2017 1:45 AM Performed by: CLEMENTINA CRABTREE Authorized by: CLEMENTINA CRABTREE Consent: Consent obtained:Emergent situation [place] protocol: Patient identity confirmed:Arm band Pre-procedure details: Patient status:Altered mental status Mallampati score:2 Pretreatment medications:Fentanyl Induction:Etomidate Paralytics:Succinylcholine Procedure details: Preoxygenation:BiPAP CPR in progress: no Intubation method:Oral Technique:Video laryngoscopy Laryngoscope blade:Mac 4 Grade view:1 Difficult airway?: No Tube size (mm):8.0 Tube type:Cuffed Number of attempts:1 Ventilation between attempts: no Cricoid pressure: yes Tube visualized through cords: yes Placement assessment: ETT to lip:24 cm Tube secured with:Adhesive tape and ETT hinds Breath sounds:Equal and absent over the epigastrium Placement verification: chest rise, condensation, direct visualization, equal breath sounds, ETCO2 detector and tube exhalation Post-procedure details: Patient tolerance of procedure:Tolerated well, no immediate complications Comments: Intubated for protection of airway and progressive SOB Family notified Pv carotid duplex (08/18/2017 3:08 PM) Specimen Performing Laboratory [facility] [address] [place] [address] Narrative Vascular Ultrasound Laboratory Carotid Artery Duplex Report [id number] [address] For research associate quality control qc purposes, the categorization of the degree of the stenosis of this exam is based on criteria described in the IAC carotid stenosis grading white paper( www.intersocietal.org/Vascular) and Molina Pride, Steve Gee, et al. Carotid artery stenosis: pro-scale and Doppler US diagnosis--Society of Radiologists in Ultrasound Consensus Conference. Radiology. 2003 Nov; 229(2):340-6. Pat.Name:ELSIE MENDOZA Pat.ID:[id number] .Date: 08/18/2017 Exam Time: 2:21:00 PM Study Type:Carotid Height:68in Weight:199lb BSA: 2.04 m2 DOBAge:1950,67YSex: MALE Sonogrphr: Madisyn Crandall RDCS, RVT Pat. Stat.:Inpatient Room:[place] [address] TapeVol: ED, CPT - 4: 46135 Echo Event ID:[id number] Order ID:[id number] Reason for Study:Carotid disease History / Clinical:CAD, HTN, HLD, Aortic stenosis, Prostate Ca, Carotid disease, S/p AVR and CABG Race:C SUMMARY: PHYSICAL ASSESSMENT BloodPulsesCarotid Pressure Carotid TemporalBruit Right 122/56 ++0 Left IV ++0 CAROTID ARTERY SCAN RIGHT:There is hard plaque in the common carotid artery. There is hard plaque noted in the bulb extending into the proximal internal and external carotid artery. Colorflow is mildly disturbed with elevated velocities noted in the external carotid artery.. LEFT: There is hard plaque in the common carotid artery. There is hard plaque noted in the bulb extending into the proximal internal and external carotid artery. Colorflow is normal. PRELIMINARY FINDINGS 1. <50%stenosis in the bulb andinternal carotid artery. 2. >50%stenosis in the rightexternal carotid artery. 3. Antegrade vertebral artery flow bilaterally. 4. Technically difficult exam on the right side due to neck lines w/bandage. PHYSICIAN INTERPRETATION Bilateral carotid duplex examination demonstrated atherosclerotic plaques in the bulbs. Less than 50% stenosis in the bulb and internal carotid artery, bilaterally. Both vertebral arteries are antegrade. Right ECa stenosis. Carotid Findings:RightLeft Verteb.Flw AntegradeAntegrade Subclavian TriphasicTriphasic MEASUREMENTS: DOPPLER Left CCA Dist CCA Dist PSV 123 cm/sCCA Dist EDV15.7 cm/s Left CCA Mid CCA Mid YRN451 cm/sCCA Mid EDV 13.4 cm /s Left CCA Prox CCA Prox PSV98.5 cm/sCCA Prox EDV9.38 cm/s Left ICA Dist ICA Dist PSV97.2 cm/Darrin Dist EDV20.6 cm/s Left ICA Mid ICA Mid UCV105 cm/Darrin Mid EDV 16.7 cm /s ICA Prox ICA Prox PSV 131 cm/Darrin Prox EDV21.6 cm/s Left ECA Prox ECA Prox PSV 136 cm/sECA Prox EDV 0.982 cm/s Left SCA Prox SCA Prox PSV 111 cm/s Left Vertebral Vertebral PSV 50.3 cm/sVertebral EDV 8.64 cm/s Right SCA Prox SCA Prox PSV 123 cm/s Right CCA Prox CCA Prox PSV91.2 cm/sCCA Prox EDV17.3 cm/s Right CCA Mid CCA Mid PSV 89.4 cm/sCCA Mid EDV 17.3 cm/s Right CCA Dist CCA Dist PSV83 cm/sCCA Dist EDV19.2 cm /s Right ICA Prox ICA Prox PSV 115 cm/Darrin Prox EDV26.4 cm/s Right ICA Mid ICA Mid FOE333 cm/Darrin Mid EDV 33.7 cm /s Right ICA Dist ICA Dist PSV90.3 cm/Darrin Dist EDV24.6 cm/s Right ECA Prox ECA Prox PSV 147 cm/sECA Prox EDV22 cm /s Right Vertebral Vertebral PSV 84.3 cm/sVertebral EDV 19.6 cm/s Right ICA/CCA Ratio ICA/CCA PSV 1.29 Left ICA/CCA Ratio ICA/CCA PSV 1.17 Signed 08/18/2017 04:18 PM Eliana Payan MD, RPVI Procedure Note Interface, Radiology Results In - 08/18/2017 4:19 PM [facility] Vascular Ultrasound Laboratory Carotid Artery Duplex Report [address] [facility], [place] [address], [place] [address] For research associate quality control qc purposes, the categorization of the degree of the stenosis of this exam is based on criteria described in the IAC carotid stenosis grading white paper( www.intersocietal.org/Vascular) and Mary Pride., Steve Gee, et al. Carotid artery stenosis: pro-scale and Doppler US diagnosis--Society of Radiologists in Ultrasound Consensus Conference. Radiology. 2003 Nov; 229(2):340-6. Pat.Name: ELSIE MENDOZA Pat.ID: [id number] .Date: 08/18/2017 Exam Time: 2:21:00 PM Study Type:Carotid Height: 68in Weight: 199lb BSA: 2.04 m2 Age: 1 1950,67Y Sex: MALE Sonogrphr: Madisyn Crandall RDCS, RVT Pat. Stat.:Inpatient Room: [address] Vol: ED, CPT - 4: 23190 Echo Event ID:[id number] Order ID: [id number] Reason for Study:Carotid disease History / Clinical:CAD, HTN, HLD, Aortic stenosis, Prostate Ca, Carotid disease, S/p AVR and CABG Race: C SUMMARY: PHYSICAL ASSESSMENT Blood Pulses Carotid Pressure Carotid Temporal Bruit Right 122/56 + + 0 Left IV + + 0 CAROTID ARTERY SCAN RIGHT: There is hard plaque in the common carotid artery. There is hard plaque noted in the bulb extending into the proximal internal and external carotid artery. Colorflow is mildly disturbed with elevated velocities noted in the external carotid artery.. LEFT: There is hard plaque in the common carotid artery. There is hard plaque noted in the bulb extending into the proximal internal and external carotid artery. Colorflow is normal. PRELIMINARY FINDINGS 1. <50% stenosis in the bulb and internal carotid artery. 2. >50% stenosis in the right external carotid artery. 3. Antegrade vertebral artery flow bilaterally. 4. Technically difficult exam on the right side due to neck lines w/bandage. PHYSICIAN INTERPRETATION Bilateral carotid duplex examination demonstrated atherosclerotic plaques in the bulbs. Less than 50% stenosis in the bulb and internal carotid artery, bilaterally. Both vertebral arteries are antegrade. Right ECa stenosis. Carotid Findings: Right Left Verteb.Flw Antegrade Antegrade Subclavian Triphasic Triphasic MEASUREMENTS: DOPPLER Left CCA Dist CCA Dist PSV 123 cm/s CCA Dist EDV 15.7 cm/s Left CCA Mid CCA Mid PSV 112 cm/s CCA Mid EDV 13.4 cm/s Left CCA Prox CCA Prox PSV 98.5 cm/s CCA Prox EDV 9.38 cm/s Left ICA Dist ICA Dist PSV 97.2 cm/s ICA Dist EDV 20.6 cm/s Left ICA Mid ICA Mid PSV 113 cm/s ICA Mid EDV 16.7 cm/s ICA Prox ICA Prox PSV 131 cm/s ICA Prox EDV 21.6 cm/s Left ECA Prox ECA Prox PSV 136 cm/s ECA Prox EDV 0.982 cm/s Left SCA Prox SCA Prox PSV 111 cm/s Left Vertebral Vertebral PSV 50.3 cm/s Vertebral EDV 8.64 cm/s Right SCA Prox SCA Prox PSV 123 cm/s Right CCA Prox CCA Prox PSV 91.2 cm/s CCA Prox EDV 17.3 cm/s Right CCA Mid CCA Mid PSV 89.4 cm/s CCA Mid EDV 17.3 cm/s Right CCA Dist CCA Dist PSV 83 cm/s CCA Dist EDV 19.2 cm/s Right ICA Prox ICA Prox PSV 115 cm/s ICA Prox EDV 26.4 cm/s Right ICA Mid ICA Mid PSV 103 cm/s ICA Mid EDV 33.7 cm/s Right ICA Dist ICA Dist PSV 90.3 cm/s ICA Dist EDV 24.6 cm/s Right ECA Prox ECA Prox PSV 147 cm/s ECA Prox EDV 22 cm/s Right Vertebral Vertebral PSV 84.3 cm/s Vertebral EDV 19.6 cm/s Right ICA/CCA Ratio ICA/CCA PSV 1.29 Left ICA/CCA Ratio ICA/CCA PSV 1.17 Signed 08/18/2017 04:18 PM Eliana Payan MD, RPVI EEG (routine) (08/18/2017 1:27 PM) Narrative EEG AWAKE AND DROWSY Date of Service: 08/18/17 Awake Recordings: The occipital dominant rhythm is 9-10 Hz. 4-5 Hz and 1.5-3 Hz activity is present in all regions. 18-22 Hz activity was present in all regions. 1.5-3 Hz activity was recorded in the left frontal central temporal region. 2-3 Hz activity was recorded in the left and right temporal regions. Sleep Recording: No sleep was recorded. Hyperventilation: Was not performed. Photic Stimulation: Was not performed. Impression: The findings are consistent with a mild diffuse disturbance in brain function with a focal lesion in the left frontal central temporal region. No seizures occurred. ICD-10 Code: R569 CTA Head W Wo Contrast (08/18/2017 12:06 PM) Specimen Performing Laboratory [address] [address] Narrative Study:CT ANGIOGRAM HEAD W WO CONTRAST History:STROKE. COMPARISON:None. TECHNIQUE: CT angiogram of the head obtained after intravenous administration of iodinated contrast. Computerized reformatted images and 3-D MIP images obtained and archived. CT imaging was performed with iterative reconstruction technique and/or automated exposure control to reduce radiation dose. FINDINGS: Bilateral intracranial ICAs are patent with mild stenosis from calcified mostly in the cavernous segments. Bilateral MCA, ACAs, are patent without significant stenosis. There is a severe focal stenosis of the right OPTICAL GLASS INSPECTOR in the P2 segment. The left OPTICAL GLASS INSPECTOR is patent without significant stenosis.. There is mild stenosis of the right intracranial vertebral artery from calcified plaque. The basilar artery is patent. The left vertebral artery appears to end as PICA branch . There are no signs of aneurysms or vascular malformations. The superior sagittal, straight, bilateral transverse, and sigmoid dural venous sinuses are opacified. There is no acute intracranial hemorrhage or significant mass effects. Some focal edema in the left basal ganglia is as described in the prior CT head. There is encephalomalacia of the right frontal lobe. The orbits are unremarkable.. The visualized paranasal sinuses and visualized mastoid air cells are well aerated. 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 Mild narrowing of the bilateral ICAs and right intracranial vertebral artery from atherosclerotic disease. No other central branch stenosis or occlusion. [facility]-[id number] Procedure Note Interface, Radiology Results [facility] - 08/18/2017 1:58 PM RESTAURANT CULINARY MANAGER Study:CT ANGIOGRAM HEAD W WO CONTRAST History:STROKE. COMPARISON:None. TECHNIQUE: CT angiogram of the head obtained after intravenous administration of iodinated contrast. Computerized reformatted images and 3-D MIP images obtained and archived. CT imaging was performed with iterative reconstruction technique and/or automated exposure control to reduce radiation dose. FINDINGS: Bilateral intracranial ICAs are patent with mild stenosis from calcified mostly in the cavernous segments. Bilateral MCA, ACAs, are patent without significant stenosis. There is a severe focal stenosis of the right OPTICAL GLASS INSPECTOR in the P2 segment. The left OPTICAL GLASS INSPECTOR is patent without significant stenosis.. There is mild stenosis of the right intracranial vertebral artery from calcified plaque. The basilar artery is patent. The left vertebral artery appears to end as PICA branch . There are no signs of aneurysms or vascular malformations. The superior sagittal, straight, bilateral transverse, and sigmoid dural venous sinuses are opacified. There is no acute intracranial hemorrhage or significant mass effects. Some focal edema in the left basal ganglia is as described in the prior CT head. There is encephalomalacia of the right frontal lobe. The orbits are unremarkable.. The visualized paranasal sinuses and visualized mastoid air cells are well aerated. 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 Mild narrowing of the bilateral ICAs and right intracranial vertebral artery from atherosclerotic disease. No other central branch stenosis or occlusion. [facility]-[id number] CTA Neck W Wo Contrast (08/18/2017 11:57 AM) Specimen Performing Laboratory [facility] [address] [facility] [address] Narrative EXAMINATION:CT ANGIOGRAM NECK W WO CONTRAST CLINICAL HISTORY:STROKE COMPARISON:CTA neck 01/21/2009 TECHNIQUE: Neck CTA with multi-planar MIP and volumetric rendering (3D) after bolus intravenous iodinated contrast administration was performed. All CT images were acquired using low-dose technique with automated exposure control. FINDINGS: Common origin of the brachiocephalic and left common carotid arteries. Dense contrast limits evaluation of the origin of the left vertebral artery. Arteriosclerosis of the bilateral carotid bifurcations without stenosis (0% by NASCET criteria). Interval occlusion of the V4 segment left vertebral artery compared with 01/21/2009. IMPRESSION: 1. Patency of the cervical bilateral carotid and vertebral arterial systems without evidence of dissection or significant stenosis by NASCET criteria. 2. 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 See dedicated CTA head report. [id number] Procedure Note Hm Interface, Radiology Results Incoming - 08/18/2017 12:20 PM RESTAURANT CULINARY MANAGER EXAMINATION: CT ANGIOGRAM NECK W WO CONTRAST CLINICAL HISTORY: STROKE COMPARISON: CTA neck 01/21/2009 TECHNIQUE: Neck CTA with multi-planar MIP and volumetric rendering (3D) after bolus intravenous iodinated contrast administration was performed. All CT images were acquired using low-dose technique with automated exposure control. FINDINGS: Common origin of the brachiocephalic and left common carotid arteries. Dense contrast limits evaluation of the origin of the left vertebral artery. Arteriosclerosis of the bilateral carotid bifurcations without stenosis (0% by NASCET criteria). Interval occlusion of the V4 segment left vertebral artery compared with 01/21/2009. IMPRESSION: 1. Patency of the cervical bilateral carotid and vertebral arterial systems without evidence of dissection or significant stenosis by NASCET criteria. 2. 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 See dedicated CTA head report. [id number] Syphilis treponemal IgG (08/18/2017 10:02 AM) Component Value Ref Range Syphilis treponemal IgG Non-reactiveComment: Non-reactive: No Non-reactive serological evidence of Syphilis infection Specimen Performing Laboratory Serum [facility] DEPARTMENT OF PATHOLOGY AND GENOMIC MEDICINE [address] [place] [id number] Vitamin B12 level (08/18/2017 10:02 AM) Component Value Ref Range Vitamin B12 351 211 - 946 pg/mL Comment: Significant overlap exists between normal and deficiency states. However, most patients with deficiencies will have Serum B12 <200 pg/mL. Specimen Performing Laboratory Serum [facility] DEPARTMENT OF PATHOLOGY AND GENOMIC MEDICINE [address] [place] [id number] Lipid panel (08/18/2017 10:02 AM) Component Value Ref Range Cholesterol 121 <200 mg/dL Triglycerides 102 <150 mg/dL HDL cholesterol 24 (L) >40 mg/dL LDL cholesterol 79Comment: Result obtained by direct LDL <100 mg/dL measurement Lipid panel interpretation SeeBelow Comment: Total Cholesterol (mg/dL) <200 Desirable 927-156Spafjmxmiz-xinl >=240High Triglycerides (mg/dL) <150 Normal 320-701Yvjglgoaas-tchc 200-499High >=500Very high HDL Cholesterol (mg/dL) <40Low (male) <40Low (female) LDL Cholesterol (mg/dL) <100 Optimal 100-129Near or above optimal 703-164Awelkjgulg-iure 160-189High >=190Very high Risk Catergories that modify LDL goals. Risk CatergoriesLDL goal (mg/dL) CHD and CHD risk equivalent<100 (10-year risk >20%) Multiple (2+) risk factors <130 (10-year risk=<20%) 0-1 risk factors <160 (<10-year risk) Defining levels of lipids in metabolic syndrome Triglycerides>=150 mg/dL HDL Cholesterol Men<40 mg/dL Women<40 mg/dL Non-HDL cholesterol is a second target for therapy in persons with high triglycerides (>=200 mg/dL) Specimen Performing Laboratory Plasma specimen [facility] DEPARTMENT OF PATHOLOGY AND GENOMIC MEDICINE [address] [place] [address] ANESTHESIA INTUBATION (08/17/2017 5:43 PM) Niko Phipps MD 08/17/2017 11:20 AM Airway Date/Time: 08/17/2017 10:29 AM Performed by: ROGERIO PHIPPS Authorized by: AMADO WONG Location:OR Urgency:Elective Difficult Airway: No Anesthesiologist:AMADO WONG Performed by: anesthesiologist Preoxygenated with 100% O2: Yes C-spine Precautions Maintained Throughout: Yes Mask Ventilation:Easy mask Final Airway Type:Endotracheal airway Final Endotracheal Airway:ETT Cuffed: Yes Technique Used:Direct laryngoscopy Devices/Methods Used in Placement:Intubating stylet Insertion Site:Oral Blade Type:Reyna Laryngoscope Blade/Videolaryngoscope Blade Size:2 ETT Size (mm):8.0 Cuff at minimum occlusion pressure: Yes Measured from:Lips ETT to Lips (cm):22 Placement Verified by: CO2 detection and direct visualization Laryngoscopic view:Grade I - full view of glottis Rapid Sequence Induction (RSI): No Modified RSI: Yes Number of Attempts at Approach:1 PA catheter (08/17/2017 5:43 PM) Niko Phipps MD 08/17/2017 11:24 AM PA catheter Performed by: ROGERIO PHIPPS Authorized by: AMADO WONG Patient Location:OR Start Time:08/17/2017 10:40 AM End Time:08/17/2017 10:45 AM Staff: Anesthesiologist:AMADO WONG Resident/PIPE STRESS ENGINEER/AA:ROGERIO PHIPPS Performed by:Resident/PIPE STRESS ENGINEER/DANIELLE Preprocedure: patient identified, IV checked, site and side verified, risks and benefits discussed, procedure verified, surgical consent complete, patient position confirmed, monitors and equipment checked and pre-op evaluation complete MSBT: antiseptic used, all elements of maximal sterile barrier technique followed, hand hygiene performed, cap/gown used by other personnel and solutions labeled Procedure details: PA Catheter Type:MARKETING SERVICES COORDINATOR PA Catheter Size:9 PA Catheter Side:Right PA Catheter Site:Internal jugular PA Catheter secured at:45 cm PA Catheter placed: PA Catheter placed through a second separate venous access point PA Catheter placed: PA Catheter placed without difficulty Waveform: PA Catheter wave confirmed Ports flushed: All ports flushed pre-procedure Post-procedure: No arrhythmia: No arrhythmias noted Patient tolerance:Patient tolerated the procedure well with no immediate complications Central line (08/17/2017 5:43 PM) Niko Phipps MD 08/17/2017 11:24 AM Central line Performed by: ROGERIO PHIPPS Authorized by: AMADO WONG Patient Location:OR Start Time:08/17/2017 10:35 AM End Time:08/17/2017 10:40 AM Staff: Anesthesiologist:AMADO WONG/PIPE STRESS ENGINEER/AA:ROGERIO PHIPPS Performed by:Resident/PIPE STRESS ENGINEER/DANIELLE Preprocedure:patient identified, IV checked, site and side verified, risks and benefits discussed, procedure verified, surgical consent complete, patient position confirmed, monitors and equipment checked and pre-op evaluation complete MSBT: antiseptic used during central venous catheter insertion, all elements of maximal sterile barrier technique followed, hand hygiene performed prior to central venous catheter insertion, cap/gown used by other personnel during central venous catheter insertion, solutions labeled and all ports not used during insertion clamped Indications: Indications:Central pressure monitoring Anesthesia: Anesthesia:General Procedure details: Patient position:Trendelenburg Catheter Type:Triple lumen Catheter Size:9 Fr Catheter Site: internal jugular vein Catheter site laterality:Right Ultrasound guidance used: Yes Ultrasound image saved: Yes Number of attempts:1 Successful placement: Yes Guidewire removal: Guidewire removal is confirmed Post-procedure: Post-procedure: line sutured, sterile dressing applied per protocol and ports flushed with saline Post-procedure:Blood cleaned with CHG and sterile caps on all hubs Assessment:Blood return through all ports and free fluid flow Patient tolerance:Patient tolerated the procedure well with no immediate complications Arterial line (08/17/2017 5:43 PM) Narrative Rogerio Phipps MD 08/17/2017 11:22 AM Arterial line Performed by: ROGERIO PHIPPS Authorized by: AMADO WONG Patient Location:Pre-op Start Time:08/17/2017 8:50 AM End Time:08/17/2017 9:00 AM Staff: Anesthesiologist:AMADO WONG Resident/PIPE STRESS ENGINEER/AA:ROGREIO PHIPPS Performed by:Resident/PIPE STRESS ENGINEER/AA Pre-procedure: patient identified, IV checked, site and side verified, risks and benefits discussed, procedure verified, surgical consent complete, patient position confirmed, monitors and equipment checked and pre-op evaluation complete MSBT: antiseptic used, all elements of maximal sterile barrier technique followed, hand hygiene performed, cap/gown used by other personnel and solutions labeled Indications: Indications: multiple ABGs Anesthesia: Anesthesia:Local infiltration Procedure Details: Arterial Line placement:Placed pre-induction Line placement site:Radial Line placement side:Right Arterial line gauge:20 G Number of attempts:1 Ultrasound guidance used: Yes Post-procedure: Post-procedure:Sterile dressing applied Post procedure circulation, sensation, movement:Normal Patient tolerance:Patient tolerated the procedure well with no immediate complications Surgical pathology request (08/17/2017 3:13 PM) Component Value Ref Range Surgical pathology report See link below for PDF Lab Report Result status This is Final Report to [id number] [facility] DEPARTMENT OF PATHOLOGY AND GENOMIC MEDICINE [address] [place] [address] Sodium level, syringe (08/17/2017 2:48 PM)Only the most recent of5 resultswithin the time period is included. Component Value Ref Range Sodium, syringe 134 (L) 135 - 148 mEq/L Specimen Performing Laboratory Blood [facility] DEPARTMENT PATHOLOGY [address] [address] Potassium, syringe (08/17/2017 2:48 PM)Only the most recent of5 resultswithin the time period is included. Component Value Ref Range Potassium, syringe 4.6 3.5 - 5.0 mEq/L Specimen Performing Laboratory Blood [facility] PATHOLOGY [address] [address] Hemoglobin, syringe (08/17/2017 2:48 PM)Only the most recent of5 resultswithin the time period is included. Component Value Ref Range Hemoglobin, syringe 10.9 (L) 14.0 - 18.0 g/dL Specimen Performing Laboratory Blood [facility] PATHOLOGY [address] [address] Glucose level, syringe (08/17/2017 2:48 PM)Only the most recent of5 resultswithin the time period is included. Component Value Ref Range Glucose, syringe 143 (H) 65 - 99 mg/dL Specimen Performing Laboratory Blood [facility] DEPARTMENT PATHOLOGY [address] [address] Fibrinogen (08/17/2017 1:50 PM) Component Value Ref Range Fibrinogen 174 (L) 200 - 450 mg/dL Specimen Performing Laboratory Blood [facility] PATHOLOGY [address] [address] Platelet count (08/17/2017 1:50 PM) Component Value Ref Range Platelet count 176 150 - 400 k/uL Specimen Performing Laboratory [facility] OF PATHOLOGY [address] [address] Hematocrit (08/17/2017 1:50 PM) Component Value Ref Range HCT 28.0 (L) 41.0 - 51.0 % Specimen Performing Laboratory [facility] PATHOLOGY [address] [address] O2 saturation, venous (08/17/2017 1:45 PM) Component Value Ref Range Hemoglobin, venous, syringe 9.6 (L) 14.0 - 18.0 g/dL O2 saturation, venous 63 40 - 70 % Specimen Performing Laboratory [facility] DEPARTMENT PATHOLOGY [address] [address] Arterial blood gas, corrected (08/17/2017 12:17 PM)Only the most recent of2 resultswithin the time period is included. Component Value Ref Range pH, arterial 7.38 7.35 - 7.45 pCO2, arterial 42 35 - 45 mmHg pO2, arterial 300 (H) 80 - 90 mmHg Temperature, Celsius 34.0 Degrees C O2 saturation, arterial 99 95 - 100 % pH, arterial corrected 7.43 pCO2, arterial corrected 37 mmHg pO2, arterial corrected 287 mmHg Base excess, arterial 0 -2 - 2 mEq/L Specimen Performing Laboratory Blood [facility] DEPARTMENT OF PATHOLOGY AND GENOMIC MEDICINE [address] [place] [address] Hemoglobin A1c (08/15/2017 5:59 PM) Component Value Ref Range Hemoglobin A1C 5.7 (H) 4.0 - 5.6 % Comment: HbA1c cutoffs for diagnosing diabetes: 4.0% - 5.6%=normal 5.7% - 6.4%=increased risk for diabetes (prediabetes) >=6.5%=diabetes Goals for glycemic control (ADA 2016) < 7.0%Target for non adults with diabetes. More or less stringent targets may be appropriate for individual patients. <7.5% Target for Children and adolescents with type 1 diabetes. Specimen Performing Laboratory Blood [facility] DEPARTMENT OF PATHOLOGY AND GENOMIC MEDICINE [address] [place] [address] Comprehensive metabolic panel (08/15/2017 5:59 PM) Component Value Ref Range Sodium 142 135 - 148 mEq/L Potassium 4.0 3.5 - 5.0 mEq/L Chloride 102 98 - 112 mEq/L CO2 26 24 - 31 mEq/L Anion gap 14 7 - 15 mEq/L Comment: Starting from November , anion gap calculation no longer incorporates potassium. Please note the change. BUN 16 8 - 23 mg/dL Creatinine 1.0 0.7 - 1.2 mg/dL Glucose 84 65 - 99 mg/dL Calcium 10.0 8.8 - 10.2 mg/dL Protein 8.1 6.3 - 8.3 g/dL Comment: 4.6-7.0 g/dL 1 week 4.4-7.6 g/dL 7 months-1year5.1-7.3 g/dL 1-2 years5.6-7.5 g/dL >3 years6.0-8.0 g/dL 18-150 6.3-8.3 g/dL Albumin 4.3 3.5 - 5.0 g/dL A/G ratio 1.1 0.7 - 3.8 Alkaline phosphatase 49 40 - 129 U/L AST 20 10 - 50 U/L ALT 25 5 - 50 U/L Total bilirubin 0.3 0.0 - 1.2 mg/dL Specimen Performing Laboratory Plasma specimen [facility] DEPARTMENT OF PATHOLOGY AND GENOMIC MEDICINE [address] [place] [address] XR Chest 2 Vw (08/15/2017 5:45 PM) Specimen Performing Laboratory [facility] [address] [place] [address] Narrative EXAMINATION:XR CHEST 2 VW CLINICAL HISTORY:I35.0 Nonrheumatic aortic (valve) stenosis, SHORTNESS OF BREATH COMPARISON:Single view chest from 01/21/2009 IMPRESSION: PA and lateral radiographs of the chest was submitted for interpretation. The lungs are clear. The mediastinal contours and cardiac silhouette are unremarkable. Mild atherosclerotic disease. Osteopenia. No vertebral body height loss. [facility]-[id number] Procedure Note Interface, Radiology Results Incoming - 08/15/2017 5:50 PM RESTAURANT CULINARY MANAGER EXAMINATION: XR CHEST 2 VW CLINICAL HISTORY: I35.0 Nonrheumatic aortic (valve) stenosis, SHORTNESS OF BREATH COMPARISON: Single view chest from 01/21/2009 IMPRESSION: PA and lateral radiographs of the chest was submitted for interpretation. The lungs are clear. The mediastinal contours and cardiac silhouette are unremarkable. Mild atherosclerotic disease. Osteopenia. No vertebral body height loss. [id number] after 01/10/2017 Insurance Payer Benefit Plan / Group Subscriber ID Type Phone Address MEDICARE MEDICARE PART A AND B xxxxxxxxxx Medicare [place], [place] BCBS BCBS PAR/TRAD PLAN xxxxxxxxxxxx Indemnity [phone] [place] [id number]
[2018-01-11 17:23] LABS: Protime INR 2.01
[2018-01-11 17:25] LABS: Absolute Lymphocytes (CBC) 1.4 K/uL (0.7-4.9); Absolute Monocytes 0.6 K/uL (0.1-1.3); Absolute Neutrophil 3.8 K/uL (1.8-8.0); Basophils % 0.7 % (0-1.3); Eosinophils % 2.4 % (0-4.4); Lymphocytes % 23.5 % (15.3-44.8); MCH 27.7 pg (27.0-35.0); MCV 83.8 fL (80-100); MPV 8.1 fL (7.6-11.3); Monocytes % 9.6 % (3.3-12.3)
[2018-01-11 17:31] LABS: Potassium 3.8 mEq/L (3.6-5.0)
[2018-01-11 17:34] LABS: Bilirubin Total 0.4 mg/dL (0.3-1.2); Magnesium 1.9 mg/dL (1.8-2.5)
[2018-01-11 18:09] LABS: Thyroid Stimulating Hormone 5.31 uIU/mL (0.34-5.60)
[2018-01-11 18:15] VITALS: BMI 26.1
[2018-01-11] MEDS: NA CHLORIDE 0.9% 1,000 ML IV SCH (18:48)
[2018-01-11] MEDS ORDERED: KCL 20 MEQ/100 mL IVPB 20 MEQ/100 ML BAG IV SCH (19:00)
[2018-01-11 19:58] LABS: Urine Appearance CLEAR; Urine Bilirubin NEGATIVE (NEG); Urine Blood TRACE (NEG); Urine Color YELLOW; Urine Glucose NEGATIVE (NEG); Urine Protein NEGATIVE (NEG); Urine Specific Gravity >=1.030 (1.005-1.030); Urine pH 5.5 (5.0-7.0)
[2018-01-11] MEDS ORDERED: PNEUMOCOCCAL VACCINE 0.5 ML IMVAC ONE (20:00)
[2018-01-11 20:24] LABS: Urine Bacteria <20 /HPF (NONE SEEN); Urine Culture Reflex Order NOT NEEDED; Urine RBC <5 /HPF (NONE SEEN)
[2018-01-11] MEDS: ATORVASTATIN 10 MG TAB PO SCH (20:37)
[2018-01-11] MEDS: BACLOFEN 10 MG TAB PO SCH (20:37)
[2018-01-11] MEDS: RAMIPRIL 5 MG CAP PO SCH (20:37)
--- NOTE | 2018-01-11 21:02 | RAD REPORT ---
EXAM DESCRIPTION: Alvaro Single View01/11/2018 8:41 pm CLINICAL HISTORY: Abdominal pain/GI bleed COMPARISON: August 2017 FINDINGS: The lungs appear clear of acute infiltrate. The heart is normal size. Postsurgical change s involve the chest IMPRESSION: No acute abnormalities displayed
[2018-01-11] MEDS ORDERED: AMLODIPINE 5 MG TAB PO ONE (22:42)
[2018-01-11] MEDS ORDERED: VITAMIN K (ADULT) 10 MG/ML SQ SCH (23:00)
[2018-01-12] MEDS ORDERED: NA CHLORIDE 0.9% 250 ML ONE (00:40)
[2018-01-12 04:46] LABS: Protime INR 1.63
[2018-01-12 04:47] LABS: Absolute Lymphocytes (CBC) 1.4 K/uL (0.7-4.9); Absolute Monocytes 0.5 K/uL (0.1-1.3); Absolute Neutrophil 3.9 K/uL (1.8-8.0); Eosinophils % 2.6 % (0-4.4); Hematocrit 37.7 % (39.6-49.0); Lymphocytes % 23.6 % (15.3-44.8); MCH 27.5 pg (27.0-35.0); MCV 83.1 fL (80-100); MPV 7.8 fL (7.6-11.3); Monocytes % 7.7 % (3.3-12.3); RBC Red Blood Cell Count 4.54 M/uL (4.33-5.43)
[2018-01-12] MEDS: BACLOFEN 10 MG TAB PO SCH ×3 (04:49→20:45)
[2018-01-12 05:19] LABS: Magnesium 2.1 mg/dL (1.8-2.5); Potassium 3.8 mEq/L (3.6-5.0)
[2018-01-12] MEDS: PANTOPRAZOLE 40MG TABLET PO SCH (06:18)
[2018-01-12] MEDS: NA CHLORIDE 0.9% 1,000 ML IV SCH ×2 (06:20→19:17)
[2018-01-12] MEDS ORDERED: KCL 20 MEQ/100 mL IVPB 20 MEQ/100 ML BAG IV SCH (07:00)
[2018-01-12 07:03] LABS: Protime INR 1.64
[2018-01-12] MEDS: RAMIPRIL 5 MG CAP PO SCH ×3 (08:43→20:46)
[2018-01-12] MEDS: AMIODARONE HCL 200 MG TAB PO SCH (08:44)
[2018-01-12] MEDS ORDERED: AMLODIPINE 5 MG TAB PO SCH (09:00)
[2018-01-12] MEDS ORDERED: AMLODIPINE 5 MG TAB PO ONE (12:00)
[2018-01-12 12:31] LABS: Absolute Lymphocytes (CBC) 1.2 K/uL (0.7-4.9); Absolute Monocytes 0.5 K/uL (0.1-1.3); Absolute Neutrophil 4.1 K/uL (1.8-8.0); Basophils % 0.6 % (0-1.3); Eosinophils % 1.3 % (0-4.4); Hematocrit 38.1 % (39.6-49.0); MCH 27.2 pg (27.0-35.0); MCV 83.6 fL (80-100); MPV 7.8 fL (7.6-11.3); Monocytes % 7.9 % (3.3-12.3); RBC Red Blood Cell Count 4.56 M/uL (4.33-5.43)
[2018-01-12 12:33] LABS: Protime INR 1.59
[2018-01-12] MEDS ORDERED: LIDOCAINE 1% MPF 5 ML VIAL ONE (13:38)
[2018-01-12] MEDS ORDERED: PROPOFOL 200 MG/20 ML VIAL IV ONE (13:38)
[2018-01-12] MEDS: ESCITALOPRAM 20 MG TAB PO SCH (17:45)
[2018-01-12] MEDS: ATORVASTATIN 10 MG TAB PO SCH (20:45)
[2018-01-12] MEDS ORDERED: LISINOPRIL 5 MG TAB PO SCH (21:00)
--- NOTE | 2018-01-13 01:21 | PN ---
Date of Progress Note: 01/12/2018 Subjective: The patient was seen this morning for followup. His daughter was present with him at [facility]. No new complaints or problems reported. Objective: Vital Signs: Reviewed. Blood pressure was elevated. HEENT: Unremarkable. Lungs: Clear to auscultation. Heart: Sounds normal. Abdomen: Soft. Bowel sounds normal. No guarding, rigidity, tenderness, or distention. Extremities: No leg edema. Laboratory Data: White count 6, hemoglobin 12.5, and platelets 270. Sodium 138, potassium 3.8, chlo ride 103, bicarb 27, BUN 17, creatinine 0.89, and glucose 88. INR 1.64. Impression: 1.Rectal bleeding. 2.Chronic anticoagulation therapy. 3.Paroxysmal atrial fibrillation. 4.Stroke with right-sided hemiparesis. 5.Prosthetic aortic valve. 6.Hypertension. Plan: The patient has received a fresh frozen plasma and vitamin K. INR has come down. I did talk to wig dresser, Dr. Floyd, and he is comfortable doing EGD with current INR results and repeat INR prior to EGD was 1.59. We will go ahead and continue current home medication. Blood pressure me dications will be adjusted depending on the patient's blood pressure reading and the patient will hav e EGD today. He should have colonoscopy hopefully by Monday, and I did talk to Dr. Ibarra regarding anticoagulation therapy. He will evaluate the patient and very likely he may give recommendation to discontinue anticoagulation because the patient had aortic valve replacement. This was a bioprosthe tic aortic valve and when he woke up from this surgery, he actually had a stroke and the patient's at [facility] fibrillation was after that particular episode. So, we do not have any evidence that atrial fib rillation caused the stroke, but the patient actually had a stroke during bypass surgery and aortic v alve replacement surgery, and it is one of the complications during such surgery. So, there is a goo d possibility that cinnamon grinder may give us recommendation to discontinue anticoagulation therapy, es pecially after this bleeding episode now. I will see him tomorrow for followup. DAWNA/MODL Voice ID: [id number] Report ID: [id number]
--- NOTE | 2018-01-13 01:36 | OP ---
Surgeon: Felice Craft MD Procedure To Be Performed: Esophagogastroduodenoscopy. Performing Physician: Felice Craft M.D. This procedure was done on urgent basis given the patient being on anticoagulation, and to rule out a ny upper GI source of bleeding. Plan, monitor anesthesia care. Complexity: High due to comorbids and probability of therapeutic option, stopped bleeding. Technique: After obtaining informed consent from the patient and explaining risks and complications, which include, but are not limited to bleeding, infection, perforation, and anesthesia complication, the patient was placed in a left lateral position and sedation was given. From then on the scope wa s advanced into the mouth and carefully guided up till the 3rd portion of the duodenum. There was no evidence of active bleeding that was seen. After the completion of examination, the scope and equip ment were withdrawn and procedure terminated in a safe manner. Findings: Esophagus: In the distal esophagus, there was evidence of hiatal hernia along with a tong ue of salmon-colored mucosa suspicious of Pardo's, classification C1M2. Biopsies were taken. Stomach: Mild patchy erythema seen in the body and antrum. Biopsies taken. Also seen in the body w ere few fundic gland type polyps. These were biopsied as well. In the upper body, a single erosion was seen. Biopsies were taken from this region. Duodenum: The bulb, second and third portion were normal. Complications: None. Tolerance To Anesthesia: Excellent. Postoperative Diagnoses: 1.Hiatal hernia, rule out Pardo's. 2.Gastritis with erosions. 3.Gastric polyps. Plan: 1.Await pathology results. 2.Oral PPI daily. 3.Follow up in the GI Clinic in 1 to 2 weeks. 4.We will probably need a colonoscopy at that time. US/MODL Voice ID: [id number] Report ID: [id number]
--- NOTE | 2018-01-13 04:33 | HP ---
Date of Admission: 01/11/2018 Reason For Admission: Bleeding. History Of Present Illness: A 67-year-old male patient who had surgery done for severe aortic wall s tenosis and has a bovine valve. This surgery was done probably sometime in August of this year. Wh en the patient woke up from surgery, he was diagnosed as having stroke, so stroke probably happened s ometime during the surgery during that particular hospital stay. He also developed later on atrial f ibrillation and the patient spent about 44 days in the ICU and then he spent [facility] and then he went back to inpatient rehab at [facility], and after spending some time there, he came home. He did have respiratory failure and was on ventilator for a while. He was discharged to come home with amiodarone and warfarin. He came home probably about a month and a half ago or so. The patient still goes 4 times a week to [place] for physical therapy, occupation al therapy, and speech therapy. Today his blood pressure has been running high at that particular [facility], so it was high once again, and his therapy was canceled, and he came into my office to [place] to me with his family and family reported that the patient actually started to have some lower GI bleeding problem with bright red blood per rectum and he had 3 episodes; 1 during nighttime, 1 early this morning, and third one was at my office, and this was large amount of bright red blood with sapna e blood clots. After I talked to him and evaluated him at the office, decision was made to directly admit him to the hospital for further evaluation and management of this problem. Allergies: TO SULFA. Medications: Altace 10 mg 3 times a day, amiodarone 200 mg daily, aspirin 81 mg daily, baclofen 10 m g 3 times a day, Lexapro 20 mg daily, simvastatin 20 mg daily, warfarin 3 mg daily. Review of Systems: GI: As mentioned above. All other systems reviewed and negative. Past Medical History: Significant for hypertension, paroxysmal atrial fibrillation, hypothyroidism, chronic anticoagulation therapy, sleep apnea, aortic wall stenosis status post surgery gastroesophage al reflux disease, prostate cancer, depression, hyperlipidemia, impaired fasting glucose, hypothyroid ism, stroke. Past Surgical History: Bioprosthetic aortic valve replacement August 17, 2017, coronary artery bypa ss surgery August 17, 2017, right internal carotid artery endarterectomy 2008, radiation therapy for prostate cancer 2006, prostatectomy 2004. Family History: Significant for coronary artery disease. Social History: Prior history of smoking, not at present time. Use of alcohol negative. Physical Examination: The patient was admitted to the hospital; Vital Signs: Temperature 98.4, pulse 58, respiratory rate 18, blood pressure 142/80, oxygen saturatio n 95%. Height 5 feet 8 inches, weight 171 pounds. General: Awake, alert, oriented, not in distress. HEENT: Head atraumatic, normocephalic. Conjunctivae nonerythematous. Sclerae white. Mouth, no thr ush or edema noted. Ears/Nose, no mass, lesion, discharge noted. Neck: Supple. No JVD, lymph nodes, bruit, thyromegaly noted. Lungs: Bilateral good equal air entry. Clear to auscultation. No rhonchi. No rales. Heart: Normal heart sounds, no murmur or gallop. Abdomen: Soft, bowel sounds normal. No guarding, rigidity, tenderness, mass, hepatosplenomegaly, dis tention, or bruit noted. Extremities: No leg edema. No calf tenderness. Skin: No rash, ulcer, cellulitis. Lymphatics: No lymph node enlargement in neck, supraclavicular, infraclavicular region. Neuro: LIMO DRIVER; the patient has right-sided hemiparesis with weakness of right upper and right lower ext remity. . Chest: Unremarkable. External Genitalia: Deferred. Rectal: Deferred. Laboratory Data: The patient's blood work was obtained after he came into the hospital; showed white count 6, hemoglobin 11.9, platelets 294. INR 2.01. Sodium 137, potassium 3.8, chloride 104, bicarb 26, BUN 21, creatinine 0.98, glucose 104. Liver function tests unremarkable. TSH 5.31. Urinalysis ; trace blood, otherwise negative. Chest x-ray; no acute cardiopulmonary changes. Impression: 1.Acute gastrointestinal bleeding. 2.Acute blood loss anemia. 3.Chronic anticoagulation therapy. 4.Paroxysmal atrial fibrillation. 5.Stroke. 6.Bioprosthetic aortic valve. 7.Hypertension. 8.Hyperlipidemia. 9.Prostate cancer. 10.Impaired fasting glucose. 11.Gastroesophageal reflux disease. 12.Depression. 13.Hypothyroidism. Plan: We will admit the patient to the hospital for further evaluation and management of this proble m. The patient is appropriate for inpatient and is expected to spend 2 midnights in hospital. We wi ll go ahead and give will 10 mg of vitamin K subcutaneous injection x1 dose tonight and give fresh fr ozen plasma per order and we will transfuse 1 unit of FFP tonight. We will repeat PT/INR tomorrow mo rning, and depending on tomorrow morning's blood test results, we will decide if we need to transfuse some more plasma or not. The patient's blood pressure after admission was elevated at 199/92. We w ill go ahead and start him on amlodipine per order starting tonight. Home medications will be contin ued except we will not give any anticoagulation therapy. The patient will need upper and lower endos copy workup in the hospital and then I will communicate with oracle bpm developer regarding anticoagulation t herapy need. We will request some information from his hospital stay in [place]. DAWNA/SEBASTIAN Voice ID: [id number]
[2018-01-13] MEDS: BACLOFEN 10 MG TAB PO SCH ×3 (04:58→20:55)
[2018-01-13 05:21] LABS: BUN Blood Urea Nitrogen 13 mg/dL (6-20); Bicarbonate 26 mEq/L (21-31); Glucose Level 88 mg/dL (65-120); Potassium 3.9 mEq/L (3.6-5.0); Sodium Level 137 mEq/L (135-145)
[2018-01-13] MEDS: PANTOPRAZOLE 40MG TABLET PO SCH (06:22)
[2018-01-13] MEDS ORDERED: POTASSIUM 25 MEQ EFFERV TAB PO ONE (06:30)
[2018-01-13] MEDS: NA CHLORIDE 0.9% 1,000 ML IV SCH (06:48)
[2018-01-13] MEDS: RAMIPRIL 5 MG CAP PO SCH ×3 (09:01→20:54)
[2018-01-13] MEDS: hydroCHLOROthiazide 12.5 MG CAP PO SCH (09:01)
[2018-01-13] MEDS: AMLODIPINE 5 MG TAB PO SCH ×2 (09:01→20:53)
[2018-01-13] MEDS: AMIODARONE HCL 200 MG TAB PO SCH (09:01)
[2018-01-13 09:15] LABS: Absolute Lymphocytes (CBC) 1.3 K/uL (0.7-4.9); Absolute Monocytes 0.4 K/uL (0.1-1.3); Absolute Neutrophil 5.3 K/uL (1.8-8.0); Basophils % 2.3 % (0-1.3); Eosinophils % 1.1 % (0-4.4); Hematocrit 42.2 % (39.6-49.0); Lymphocytes % 18.1 % (15.3-44.8); MCH 27.6 pg (27.0-35.0); MCV 83.7 fL (80-100); MPV 7.9 fL (7.6-11.3); Monocytes % 5.4 % (3.3-12.3); RBC Red Blood Cell Count 5.03 M/uL (4.33-5.43)
--- NOTE | 2018-01-13 14:33 | CON ---
Date of Consultation: 01/13/2018 The patient was admitted on 01/11/[address] Stewart's service for a GI bleed. I saw the patient on because of GI bleed, history of aortic valve replacement and anticoagulation status. History Of Present Illness: Mr. Rodriguez is a 67-year-old white man. He had a history of severe aor tic stenosis in August and underwent an aortic valve replacement, which was a bioprosthetic valve, a nd had a stroke postoperatively. He had developed atrial fibrillation in his postoperative period an d he was placed on amiodarone and Coumadin. He has a history of cholesterol, gastroesophageal reflux disease, and depression. He is presently undergoing physical therapy and occupational therapy, and is slowly improving. Has not had any atrial fibrillation that is documented by symptoms or telemetry since he was last seen in my office. He came in with a GI bleed with clots. Endoscopy so far was f airly unremarkable. A colonoscopy is being planned for Monday. The question is what to do with his anticoagulation. He is cardiac-connor asymptomatic. Allergies: HE IS ALLERGIC TO SULFA. Review of Systems: Negative. Social History: Negative. Family History: Non-contributory. Past Medical History: As stated above. Medications: At home include amiodarone, aspirin, baclofen, Coumadin, ramipril, Zocor, Nexium, and L exapro. Physical Examination: General: He was pleasant as usual. Vital Signs: Stable. He was afebrile, and he was in a sinus rhythm. HEENT: Negative. Neck: Supple with no bruit. Chest is clear to auscultation and percussion. Cardiac Exam: Revealed regular rhythm and rate without any murmurs, gallops, or rubs. Abdomen: Benign. Extremities: Revealed no clubbing, cyanosis, or edema. Diagnostic Data: Unremarkable. INR was 1.59, hemoglobin is 12.4. Impression And Plan: 1.Mr. Rodriguez is a patient, who had aortic valve replacement, bioprosthetic. He had a stroke immed iately postoperatively. He was in atrial fibrillation after his surgery. He was placed on amiodaron e and Coumadin, but he has also taking aspirin and baclofen at home. He came in with a GI bleed, sta ble hemoglobin, not requiring transfusion. Endoscopy so far is fairly unremarkable. Colonoscopy is being planned for Monday. He certainly could have arteriovenous malformations causing his bleeding. I would strongly recommend against the Coumadin at this point and I did recommend that he do not marta e baclofen. He can certainly get back on a baby aspirin eventually, depending on the colonoscopy fin dings. He should also continue Nexium. His other problems, including dyslipidemia, cerebrovascular accident are stable. His atrial fibrillation has not recurred and I would keep him on the amiodarone for now, but I would probably stop it in about 6 months from the onset of surgery. I do not think carina sousa needs long-term anticoagulation. I will discuss the case with Dr. Stewart. HERMILO/SEBASTIAN Voice ID: [id number] Report ID: [id number]
--- NOTE | 2018-01-13 15:18 | PN ---
Date of Progress Note: 01/13/2018 Subjective: The patient was seen this morning for followup. No new complaints or problems reported by patient. He was sitting in chair. His daughter was present with him at bedside. Objective: Vital Signs: Reviewed. No new complaints problems reported by him. No bleeding per rectum since I saw him yesterday. No bowel movement also. No abdominal pain, nausea, vomiting. Objective: Vital Signs: Reviewed. HEENT: Unremarkable. Lungs: Clear to auscultation. Cardiac: Heart sounds normal. Abdomen: Soft. Bowel sounds normal. No guarding, rigidity, tenderness, or distention. Extremities: No leg edema. Laboratory Data: White count 7.2, hemoglobin 13.9, platelets 343. Sodium 137, potassium 3.9, chloride 105, bicarb 26, BUN 13, creatinine 0.84, glucose 88. Impression: 1. Acute gastrointestinal bleeding. 2. Acute blood loss anemia. 3. Paroxysmal atrial fibrillation. 4. Prosthetic heart wall. 5. Coronary artery disease. 6. Hypertension. Plan: The patient's hemoglobin is stable. EGD done yesterday, findings reviewed with the patient and his daughter, which is hiatal hernia, gastritis, and gastric erosions. Appropriate biopsy was taken by Dr. Craft to rule out Pardo's esophagus. We will continue proton-pump inhibitor per order. I did call and talk to Dr. Craft regarding plan to do colonoscopy. Originally, he was thinking about doing it as outpatient but considering patient's health problems and multiple comorbidities, I recommended colonoscopy to be done as an inpatient, and Dr. Craft will plan to do it on Monday. We will leave him on full liquid diet today, starting tomorrow we will change him to clear liquid diet, and order for him to get ready for colonoscopy. I did talk to patient and patient's daughter about the events that happened in [place] after his surgery, so he had surgery done for replacement of aortic wall and it was a bioprosthetic valve, surgery was done on August 17, 2017, and at the same time , he had coronary artery bypass surgery. When he woke up from surgery, he was diagnosed to have stroke, so this stroke happened sometime during this surgical procedure. Few days after the surgery, he had atrial fibrillation and that was the time he was given amiodarone, and he also had subclavian line and PICC line on the right side and had right upper extremity DVT and left lower extremity DVT , so he was given warfarin for DVT, and we do not know if it was also given with the intention to help him with the paroxysmal atrial fibrillation or not, but at this point what we will do is do a venous Doppler of upper and lower extremities, and as per my discussion with Dr. Ibarra yesterday, we are leaning towards recommendation to discontinue anticoagulation therapy, and we will make that decision by the time he goes home from the hospital. His blood pressure remains elevated and will continue current Altace, give Amlodipine 5mg two times a day as per order and add HCTZ 12.5mg daily. DAWNA/MODL Voice ID: [id number] Report ID: [id number] MTDD
[2018-01-13] MEDS: ESCITALOPRAM 20 MG TAB PO SCH (17:01)
[2018-01-13] MEDS: ATORVASTATIN 10 MG TAB PO SCH (20:54)
[2018-01-14] MEDS: BACLOFEN 10 MG TAB PO SCH ×3 (04:00→20:51)
[2018-01-14] MEDS: GOLYTELY 4000 ML PO SCH ×2 (05:00→13:36)
[2018-01-14] MEDS: PANTOPRAZOLE 40MG TABLET PO SCH (05:43)
[2018-01-14 05:52] LABS: Absolute Lymphocytes (CBC) 1.4 K/uL (0.7-4.9); Absolute Monocytes 0.7 K/uL (0.1-1.3); Absolute Neutrophil 4.4 K/uL (1.8-8.0); Basophils % 0.7 % (0-1.3); Eosinophils % 2.5 % (0-4.4); Hematocrit 37.8 % (39.6-49.0); Lymphocytes % 20.5 % (15.3-44.8); MCH 27.8 pg (27.0-35.0); MCV 82.6 fL (80-100); MPV 7.7 fL (7.6-11.3); Monocytes % 9.9 % (3.3-12.3); RBC Red Blood Cell Count 4.58 M/uL (4.33-5.43)
[2018-01-14 06:05] LABS: Magnesium 2.1 mg/dL (1.8-2.5); Potassium 4.1 mEq/L (3.6-5.0)
[2018-01-14] MEDS ORDERED: BISACODYL E.C. 5 MG TAB PO ONE (09:00)
[2018-01-14] MEDS: RAMIPRIL 5 MG CAP PO SCH ×3 (09:06→20:50)
[2018-01-14] MEDS: hydroCHLOROthiazide 12.5 MG CAP PO SCH (09:06)
[2018-01-14] MEDS: AMLODIPINE 5 MG TAB PO SCH ×2 (09:07→20:52)
[2018-01-14] MEDS: AMIODARONE HCL 200 MG TAB PO SCH (09:07)
--- NOTE | 2018-01-14 11:54 | PN ---
Date of Progress Note: 01/14/2018 Subjective: The patient was seen this morning for followup. No new complaints or problems reported by patient. No bleeding reported, except with bowel movement, he had little bit when he was cleaning himself, but not mixed with stool. Objective: Vital Signs: Reviewed. HEENT: Unremarkable. Lungs: Clear to auscultation. Heart: Heart sounds normal. Abdomen: Soft. Bowel sounds normal. No guarding, rigidity, tenderness, or distention. Extremities: No leg edema. Laboratory Data: White count 6.6, hemoglobin 12.7, platelets 316. Sodium 139, potassium 4.1, chloride 103, bicarb 29, BUN 14, creatinine 1.03, glucose 103, magnesium 2.1. Impression: 1. Acute gastrointestinal bleeding. 2. Acute blood anemia. 3. Hypertension. 4. Stroke with right-sided hemiparesis. 5. Paroxysmal atrial fibrillation. 6. History of deep venous thrombosis of right upper extremity and left lower extremity. Plan: Today, we will go ahead and get a venous Doppler of both upper and both lower extremities. The patient will be getting ready for colonoscopy and depending on tomorrow's colonoscopy results and the patient's condition, we will decide if we can discharge him to go home tomorrow or not. We will initiate aspirin therapy at appropriate time, but upon discharge, the patient will not take anymore anticoagulation therapy and I have discussed today with Dr. Ibarra, occupational health and safety adviser. The patient's blood pressure is under much better control today than last few days. DAWNA/MODFidelia Voice ID: [id number] Report ID: [id number] JEFFRY
--- NOTE | 2018-01-14 13:41 | RAD REPORT ---
EXAM DESCRIPTION: VASExtrem Venous W Compress Bil01/14/2018 1:32 pm CLINICAL HISTORY: Bilateral leg swelling COMPARISON: none FINDINGS: The common femoral, superficial femoral, popliteal and posterior tibial veins bilaterally are compressible and demonstrate augmentation. Doppler demonstrates good flow. IMPRESSION: No evidence of deep venous thrombosis involving either lower extremity.
--- NOTE | 2018-01-14 13:45 | RAD REPORT ---
EXAM DESCRIPTION: US - UPPER EXTREMITY VENOUS BILAT - 01/14/2018 1:33 pm CLINICAL HISTORY: Arm swelling. History of venous thrombosis COMPARISON: None FINDINGS: Echogenic material having the appearance of subacute thrombus is present within the mid ri ght internal jugular vein. The cephalic veins are not well visualized bilaterally. Remainder the internal jugular veins, subclavian, axillary, basilic, brachial veins bilaterally are c ompressible and demonstrate augmentation. Doppler demonstrates good flow IMPRESSION: Subacute thrombus within the mid right internal jugular vein
[2018-01-14] MEDS: ESCITALOPRAM 20 MG TAB PO SCH (17:13)
[2018-01-14] MEDS: ATORVASTATIN 10 MG TAB PO SCH (20:51)
[2018-01-15] MEDS: BACLOFEN 10 MG TAB PO SCH ×2 (04:00→10:59)
[2018-01-15] MEDS: GOLYTELY 4000 ML PO SCH (04:29)
[2018-01-15] MEDS: PANTOPRAZOLE 40MG TABLET PO SCH (06:30)
[2018-01-15] MEDS: RAMIPRIL 5 MG CAP PO SCH ×2 (09:00→15:13)
[2018-01-15] MEDS: AMLODIPINE 5 MG TAB PO SCH (09:00)
[2018-01-15] MEDS ORDERED: Ringers Lactate 1,000 ML IV ONE (11:54)
[2018-01-15] MEDS ORDERED: PROPOFOL 200 MG/20 ML VIAL IV ONE ×2 (12:37)
[2018-01-15] MEDS ORDERED: LIDOCAINE 1% MPF 2 ML AMPULE ONE (12:37)
[2018-01-15 13:09] VITALS: TEMP 98.1
[2018-01-15 13:10] VITALS: O2SAT 98
[2018-01-15] MEDS: AMIODARONE HCL 200 MG TAB PO SCH (15:14)
[2018-01-15] MEDS: hydroCHLOROthiazide 12.5 MG CAP PO SCH (15:14)
[2018-01-15 15:15] VITALS: BP 138/70
[2018-01-15] MEDS ORDERED: PNEUMOCOCCAL VACCINE 0.5 ML IMVAC ONE (16:00)
--- NOTE | 2018-01-15 16:44 | OP ---
Date of Procedure: 01/15/2018 Surgeon: Danna Floyd MD Procedure: Colonoscopy till distal transverse colon due to lack of prep. No further intubation coul d be done. Indication: GI bleeding. Premedications: Per anesthesia. Complexity: Moderate. Total Sedation: Excellent. Preparation: [place] classification 3/9 that is extremely poor prep. Lesions cannot be ruled out. Procedure In Detail: Procedure, possible complications, and alternatives including, but not limited to the possibility of bleeding, perforation, tear, infection, sepsis, need for surgery, need for bloo d transfusion, anesthesia related problem explained to the informed republican. Consent obtained. The pa tient was placed in left lateral position. Digital and rectal examination after anesthesia was alon l. Forward view retroflexion in this area revealed poor prep. Generally poor prep noted in sigmoid, descending, and transverse colon area. At the splenic flexure, diverticulosis noted. No active or passive bleeding noted. Preparation is extremely poor that any comment about mucosal details will be inappropriate other than dictated above. Therefore, procedure was stopped at this level and scope w as retrieved back. No additional diagnosis evident. Impression: Poor prep, diverticulosis coli. Plan: Case was discussed with Dr. Stewart. He will take further action. Complications: None. The patient tolerated the procedure well. Disposition: To the floor. Plan on him will be future colonoscopy with 3-day extended prep on an ou tpatient basis. SO/SEBASTIAN Voice ID: [id number] Report ID: [id number]
--- NOTE | 2018-01-16 07:06 | DS ---
Date of Discharge: 01/15/2018 Disposition: Discharged to go home. Physical Examination: HEENT: Unremarkable. Lungs: Clear to auscultation. Heart: Sounds normal. Abdomen: Soft, bowel sounds normal. No guarding, rigidity, tenderness, or distention. Extremities: No leg edema. Discharge Medications And Instructions: 1.Continue all prior home medication except stop warfarin. 2.Start aspirin 81 mg p.o. daily as of tomorrow. 3.Take amlodipine 5 mg 2 times a day and hydrochlorothiazide 12.5 mg p.o. daily. 4.Follow up at my office in 2 weeks. 5.The patient to start his outpatient physical therapy, occupational therapy, and speech therapy, an d family to pickup order from the office. Hospital Course: This is a 67-year-old male patient, who was admitted to the hospital with lower GI bleeding. Please see dictated H and P for more information. The patient came into my office with hi bree family with bright red blood per rectum, had a total of 3 such bowel movements with significant ifona unt of blood in stool. Along with large amount of blood there were some blood clots. No rectal pain . No abdominal pain. No nausea, no vomiting. No fever. After the patient was evaluated at the off ice, decision was made to admit him to hospital directly for further evaluation and management of thi s problem of GI bleeding. He is on warfarin. His INR was 2.01, when he came in. GI consultation wa s requested from Dr. Floyd and day after admission, the patient had EGD done, and in order for us to g et him ready for EGD we gave him 1 unit of fresh frozen plasma and 10 mg of vitamin K subcutaneous in jection, and his INR came down to 1.5-1.6 range, and the patient had an EGD done. EGD showed evidenc e of hiatal hernia, some gastric erosion, and biopsies were taken to rule out Pardo esophagus. The patient was given proton pump inhibitor therapy. EGD was done on Monday. Over the weekend we start ed him to get ready for colonoscopy, and this morning the patient had a colonoscopy by Dr. Floyd and alfa rios prep he was able to go all the way to mid transverse colon and no evidence of any malignan t lesion noted. Dr. Floyd has allowed for patient to restart his aspirin or anticoagulation therapy, and we will have the patient start his aspirin as of tomorrow. Cardiology consultation was obtained from Dr. Ibarra due to his recommendation for anticoagulation therapy. It is important to note that the patient had coronary artery bypass surgery and aortic valve replacement surgery in August 17, in [place], and this was a bioprosthetic heart wall. When the patient woke up from this surgery he was diagnosed as having stroke, so he actually ended up having stroke during this surgery. Few d ays after the surgery, he had atrial fibrillation, and the patient had central line on the right side of the neck and a PICC line in the right arm, and he was diagnosed as having DVT of right upper extr emity and left lower extremity during his stay in the hospital in [place]. This was sometime in diamond of this year. So the patient was given anticoagulation therapy, warfarin. He has been on amioda vargas and warfarin since that time. He has remained in sinus rhythm. We did obtain venous Doppler of both upper extremity, both lower extremity and Doppler study was negative for any DVT of legs on the left arm. Right upper extremity shows old thrombus in the internal jugular vein. All these finding s were discussed with the patient, and the patient's daughter and with that our recommendation is for him to stop his anticoagulation therapy and start taking his aspirin as of tomorrow. His blood pres sure was elevated during this hospitalization. We started him on amlodipine and added hydrochlorothi azide, and this has provided excellent control of his blood pressure. Hemodynamically he remained st able. He did not require any blood transfusion. The patient had lot of trouble getting ready for hi s colonoscopy, because of his right-sided hemiparesis and his family was with him, and he was able to manage this colonoscopy prep, because he was in the hospital. Daughter was saying at home this woul d not have been possible and in spite of him getting prep in the hospital, it was still suboptimal as we understand. Laboratory Data: Initial sodium 137, potassium 3.8, chloride 104, bicarb 26, BUN 21, creatinine 0.98 . TSH normal at 5.31. Liver function tests unremarkable. Initial white count 6, hemoglobin 11.9, platelets 294. On 01/13/2018, white count 7.2, hemoglobin 13.9, platelets 343. Discharge Diagnoses: 1.Acute lower gastrointestinal bleeding. 2.Acute blood loss anemia. 3.Stroke with right-sided hemiparesis. 4.Paroxysmal atrial fibrillation. 5.Deep vein thrombosis, right internal jugular vein, chronic. 6.Coronary artery disease. 7.Hypertension. 8.Hyperlipidemia. 9.Prostate cancer. 10.Gastritis, acute. 11.Diverticulosis. DAWNA/MODL Voice ID: [id number] Report ID: [id number]
== END 2018-01-15 16:11 | disposition home or self-care (01) | DRG 378 ==
LOC: 4TH 16:46
PROVIDERS: ADMIT Internal Medicine; ATTEND Internal Medicine
PROC: 0DB68ZX Excision of Stomach, Via Natural or Artificial Opening Endoscopic, Diagnostic (ICD-10-PCS; 2018-01-12)
PROC: 0DB38ZX Excision of Lower Esophagus, Via Natural or Artificial Opening Endoscopic, Diagnostic (ICD-10-PCS; principal; 2018-01-12 14:30)
PROC: 0DJD8ZZ Inspection of Lower Intestinal Tract, Via Natural or Artificial Opening Endoscopic (ICD-10-PCS; 2018-01-15)
DX: K92.2 Gastrointestinal hemorrhage, unspecified (principal); D62 Acute posthemorrhagic anemia; I69.351 Hemiplegia and hemiparesis following cerebral infarction affecting right dominant side; I48.0 Paroxysmal atrial fibrillation; K29.00 Acute gastritis without bleeding; K57.30 Diverticulosis of large intestine without perforation or abscess without bleeding; K25.9 Gastric ulcer, unspecified as acute or chronic, without hemorrhage or perforation; K31.7 Polyp of stomach and duodenum; I25.10 Atherosclerotic heart disease of native coronary artery without angina pectoris; K44.9 Diaphragmatic hernia without obstruction or gangrene; E03.9 Hypothyroidism, unspecified; I10 Essential (primary) hypertension; R73.01 Impaired fasting glucose; K21.9 Gastro-esophageal reflux disease without esophagitis; F32.89 Other specified depressive episodes; Z53.09 Procedure and treatment not carried out because of other contraindication; Z79.01 Long term (current) use of anticoagulants; Z95.2 Presence of prosthetic heart valve; Z85.46 Personal history of malignant neoplasm of prostate; Z28.21 Immunization not carried out because of patient refusal
CPT/HCPCS: 36415; 71045; 80048; 80053; 81001; 83735; 84443; 85025; 85610; 85730; 86850; 86900; 86901; 88305; 88312; 93970; J2001; J3430; J7030; P9059

== ENCOUNTER 2018-05-11 07:50 | Day surgery (SDC) | payer OTHER, BC ==
[2018-05-07 10:27] LABS: Absolute Lymphocytes (CBC) 1.3 K/uL (0.7-4.9); Absolute Monocytes 0.5 K/uL (0.1-1.3); Absolute Neutrophil 4.6 K/uL (1.8-8.0); Basophils % 0.5 % (0-1.3); Eosinophils % 1.6 % (0-4.4); Hematocrit 41.4 % (39.6-49.0); Lymphocytes % 20.1 % (15.3-44.8); MCH 29.6 pg (27.0-35.0); MCV 85.6 fL (80-100); MPV 8.7 fL (7.6-11.3); Monocytes % 7.5 % (3.3-12.3); RBC Red Blood Cell Count 4.84 M/uL (4.33-5.43)
[2018-05-07 10:34] LABS: Potassium 3.9 mmol/L (3.5-5.1)
[2018-05-11] MEDS ORDERED: Ringers Lactate 1,000 ML IV ONE ×2 (08:28→10:30)
[2018-05-11] MEDS ORDERED: CEFAZOLIN/SWI 1gm 1 GM/10 ML SYR ONE (08:28)
[2018-05-11] MEDS ORDERED: FENTANYL CITR 100 MCG/2 ML ONE (09:43)
[2018-05-11] MEDS ORDERED: ROCURONIUM 50 MG/5 ML VIAL IV ONE (09:43)
[2018-05-11] MEDS ORDERED: ONDANSETRON HCL 40 MG/20 ML VIAL ONE (09:43)
[2018-05-11] MEDS ORDERED: MIDAZOLAM HCL 2 MG/2 ML INJ ONE (09:43)
[2018-05-11] MEDS ORDERED: LIDOCAINE 2% MPF 5 ML VIAL ONE (09:43)
[2018-05-11] MEDS ORDERED: PROPOFOL 200 MG/20 ML VIAL IV ONE (09:43)
[2018-05-11] MEDS ORDERED: EPHEDRINE SULF 50 MG/10 ML SYR ONE (10:29)
[2018-05-11] MEDS ORDERED: KETOROLAC 30 MG/ML INJ ONE (11:02)
[2018-05-11] MEDS ORDERED: NEOSTIGMINE 1 MG/ML -5 ML SYRINGE ONE (11:02)
[2018-05-11] MEDS ORDERED: GLYCOPYRROLATE 0.2 MG/ML SYR ONE ×2 (11:02)
[2018-05-11 11:50] VITALS: O2SAT 95
--- NOTE | 2018-05-11 12:25 | OP ---
Date of Procedure: 05/11/2018 Surgeon: Adrian Grimes MD Secretary To The Vice President: KATHI Neal Preoperative Diagnoses: Umbilical hernia and left inguinal hernia. Postoperative Diagnoses: Umbilical hernia and left inguinal hernia. Procedures: Repair of umbilical hernia and repair of left inguinal hernia. Estimated Blood Loss: Minimal. Specimen: Hernia sac and cord lipoma. Findings: As above. Anesthesia: General. Complications: None. Disposition: The patient tolerated the procedure in stable condition and taken to Recovery in good g eneral condition. Description Of Procedure: The patient was brought to the OR and placed in the supine position. Gene ral anesthesia was begun. The patient was prepped and draped in usual sterile fashion. Marcaine 0.5 % was infiltrated locally. A 15-blade was used to make a 3 cm midline umbilical incision. Subcutane ous tissue was divided. Hernia sac identified and excised from the edges of the normal fascia, sent to Pathology as specimen. #1 PDS running suture was used to close the defect, which was approximatel y 2 cm in diameter. The wound was irrigated and bleeding was controlled with cautery. A 3-0 chromic was used to approximate the subcutaneous tissue and close the skin. Sterile dressing was applied. Then, in a field block fashion, Marcaine 0.5% was infiltrated in the left groin and then a 15-blade w as used to make a 4 cm incision between the pubic tubercle and the left anterior iliac superior spine . Subcutaneous tissue was divided. Juan C's fascia was identified and divided. An aponeurosis was identified and mobilized inferiorly to expose shelving edge, and then the aponeurosis opened through the external ring. Ilioinguinal nerve identified and mobilized out of the field of dissection. Cord was skeletonized. A large sac with the cord lipoma identified. High ligation was done with 2-0 markus k ties and then a patulous internal ring remained, large Marlex mesh plug placed and secured with [place]-dimensional network logoack stapler. Onlay mesh placed, secured medially to the pubic tubercle with VersaTack, inferior t o the shelving edge, laterally to each other, superior to the conjoined tendon. Then, cord structure s and ilioinguinal nerve placed back in their anatomic location. 2-0 Prolene was used to close the a poneurosis, 3-0 chromic was used to close the Juan C's fascia and staple was used to close the skin. Sterile dressing was applied. The patient was awakened and taken to Recovery in good general condit ion. Discharge Note: The patient will go to Day Surgery and home when stable. Disposition: Home. Condition: Stable. Discharge Instructions: Resume home medicines and diet. Activity as tolerated. No heavy lifting. Remove outer dressing in 2 days. Shower. Keep wound clean and dry. Follow up in my office in 1 wemerry barrett. Call for appointment. Tylenol No. 3 one tablet p.o. q.4 p.r.n. pain. Ice pack, scrotal support, abdominal binder as ordered. ANTHONY/SEBASTIAN Voice ID: [id number] Report ID: [id number]
[2018-05-11] MEDS ORDERED: HYDROCODONE/APAP 7.5/325 MG TAB ONE (12:39)
[2018-05-11 13:40] VITALS: BP 121/70; TEMP 98.5
== END 2018-05-11 13:35 | disposition home or self-care (01) ==
LOC: OR 07:50
PROVIDERS: ATTEND Surgery
PROC: 0WQF0ZZ Repair Abdominal Wall, Open Approach (ICD-10-PCS; principal; 2018-05-11 10:00)
PROC: 0YU60JZ Supplement Left Inguinal Region with Synthetic Substitute, Open Approach (ICD-10-PCS; 2018-05-11 10:00)
DX: K42.9 Umbilical hernia without obstruction or gangrene (principal); K40.90 Unilateral inguinal hernia, without obstruction or gangrene, not specified as recurrent; I69.351 Hemiplegia and hemiparesis following cerebral infarction affecting right dominant side; I25.10 Atherosclerotic heart disease of native coronary artery without angina pectoris; I10 Essential (primary) hypertension; G47.33 Obstructive sleep apnea (adult) (pediatric); K21.9 Gastro-esophageal reflux disease without esophagitis; Z95.2 Presence of prosthetic heart valve; Z95.1 Presence of aortocoronary bypass graft; Z79.82 Long term (current) use of aspirin; Z88.2 Allergy status to sulfonamides; Z86.718 Personal history of other venous thrombosis and embolism; Z82.49 Family history of ischemic heart disease and other diseases of the circulatory system; Z83.3 Family history of diabetes mellitus
CPT/HCPCS: 36415; 49505; 49585; 80048; 85025; 88302; J0690; J2250; J2405; J2710; J3010

== ENCOUNTER 2018-07-30 22:22 | Observation (INO) | payer OTHER, BC ==
[2018-07-30 23:30] LABS: BUN Blood Urea Nitrogen 25 mg/dL (7-18); Bicarbonate 27 mmol/L (21-32); Glucose Level 120 mg/dL (74-106); Sodium Level 138 mmol/L (136-145)
[2018-07-30 23:31] LABS: ALT/SGPT 49 U/L (12-78); AST/SGOT 23 U/L (15-37); Alkaline Phosphatase 60 U/L (45-117); Bilirubin Direct 0.1 mg/dL (0-0.2); Bilirubin Total 0.4 mg/dL (0.2-1.0); NT PRO-BNP 17 pg/mL (<125); Protein, Total 7.5 g/dL (6.4-8.2); Troponin (Emerg Dept Use Only) < 0.02 ng/mL (0.0-0.045)
[2018-07-30 23:38] LABS: Absolute Lymphocytes (CBC) 1.2 K/uL (0.7-4.9); Absolute Monocytes 0.9 K/uL (0.1-1.3); Absolute Neutrophil 11.8 K/uL (1.8-8.0); Basophils % 0.3 % (0-1.3); Eosinophils % 0.3 % (0-4.4); Hematocrit 41.1 % (39.6-49.0); Lymphocytes % 8.6 % (15.3-44.8); MPV 8.3 fL (7.6-11.3); Monocytes % 6.1 % (3.3-12.3); RBC Red Blood Cell Count 4.68 M/uL (4.33-5.43)
[2018-07-30 23:58] LABS: Protime INR 1.09
[2018-07-31 00:09] LABS: Arterial Blood Carboxyhemoglob 0.9 % (0-1.5); Blood Gas Oxyhemoglobin 92.5 % (94-97); Blood O2 Saturation 94.5 % (92-98.5)
[2018-07-31] MEDS ORDERED: FENTANYL CITR 100 MCG/2 ML ONE (01:02)
--- NOTE | 2018-07-31 01:15 | ER ---
Nurse's Notes [facility] Name: Erick Rodriguez Age: 67 yrs Sex: Male : 1950 Arrival Date: 07/30/2018 Time: 22:23 Bed 5 Private MD: Diagnosis: Fractures right 6th and 7th ribs. S/P fall Presentation: 07/30 22:33 Presenting complaint: Patient states: I was at home and I fell from standing on to my la1 right side after losing my balance, my right ribs hurt really bad. Transition of care: patient was not received from another setting of care. Onset of symptoms was July 30, 2018. Risk Assessment: Do you want to hurt yourself or someone else? Patient reports no desire to harm self or others. Initial Sepsis Screen: Does the patient meet any 2 criteria? No. Patient's initial sepsis screen is negative. Does the patient have a suspected source of infection? No. Patient's initial sepsis screen is negative. Care prior to arrival: Medication(s) given: Morphine 5mg IV IV initiated. 18 GA, in the left antecubital area. 22:33 Method Of Arrival: EMS: [facility] la1 22:33 Acuity: CRISS 3 la1 23:19 Mechanism of Injury: Fall from standing position. Trauma event details: Injury occurred lp1 in the [facility], Injury occurred: at home. Injury occurred: July 30, 2018 Injury occurred at: 16:00. Trauma Activation: Not Applicable Physician: ED Physician; Name: ; Notified At: ; Arrived At: Physician: General Surgeon; Name: ; Notified At: ; Arrived At: Physician: Radiology; Name: ; Notified At: ; Arrived At: Physician: Respiratory; Name: ; Notified At: ; Arrived At: Physician: Lab; Name: ; Notified At: ; Arrived At: Historical: - Allergies: 22:38 Sulfa (Sulfonamide Antibiotics); la1 - Home Meds: 22:38 aspirin 81 mg Oral TbEC 1 tab once daily [Active]; Lexapro 20 mg Oral tab 1 tab once la1 daily [Active]; hydrochlorothiazide 12.5 mg Oral tab 1 tab once daily [Active]; amlodipine 5 mg tab 1 tab BID [Active]; ramipril 10 mg Oral cap 1 cap 2 times per day [Active]; Zocor 20 mg Oral tab 1 tab once daily [Active]; meclizine 12.5 mg Oral tab 1 tabs 2 times per day [Active]; - PMHx: 22:38 CVA; Aortic valve replacement (cow); Hypertension; Hyperlipidemia; la1 - PSHx: 22:38 CABG; la1 - Immunization history:: Adult Immunizations up to date. - Social history:: Smoking status: Patient/guardian denies using tobacco. - Immunization history: Last tetanus immunization: unknown. - Ebola Screening: : No symptoms or risks identified at this time. Screenin:13 Abuse screen: Denies threats or abuse. Denies injuries from another. Nutritional lp1 screening: No deficits noted. Tuberculosis screening: No symptoms or risk factors identified. Fall Risk Total Silverman Fall Scale indicates High Risk Score (45 or more points). Fall prevention measures have been instituted. Side Rails Up X 2 Family Present and informed to notify staff if the need to leave the bedside As available patient and family educated on Fall Prevention Program and Strategies. Primary Survey: 22:45 NO uncontrolled hemorrhage observed. A: The patient is alert. Airway: patent, Oxygen lp1 via nasal cannula at 2 liters per minute. Breathing/Chest: Respiratory pattern: regular, Respiratory effort: spontaneous, Breath sounds: clear, bilaterally. Chest inspection: symmetrical rise and fall of the chest. Circulation: Skin color: pink, Skin temperature: warm, dry. Disability Alert. Exposure/Environment: All clothing and personal items were removed. Forensic evidence collection is not deemed to be indicated at this time. Items placed in patient belonging bag. A warming method has been applied: A warm blanket has been provided to the patient. 07/31 00:00 Reassessment Breathing/Chest Respiratory pattern Regular Respiratory effort Spontaneous lp1 Breath sounds Clear Chest inspection Symmetrical. Secondary Survey: 07/30 23:15 HEENT: No deficits noted. Gastrointestinal: Abdomen is soft. : No deficits noted. lp1 Musculoskeletal: Circulation, motion, and sensation intact. Range of motion: intact in all extremities. Assessment: 22:45 General: Appears uncomfortable, Behavior is appropriate for age. Pain: Complains of lp1 pain in diaphragm and right lateral anterior chest Pain currently is 7 out of 10 on a pain scale. Quality of pain is described as sharp, Aggravated by respiration. Neuro: Level of Consciousness is awake, alert, obeys commands, Oriented to person, place, time, situation, Foil Spinner are weak on right Weakness in right arm(s) leg(s) Pupils are PERRLA. EENT: No signs and/or symptoms were reported regarding the EENT system. Cardiovascular: Patient's skin is warm and dry. Respiratory: Reports pain with movement pain with respiration Respiratory effort is even, Respiratory pattern is regular, symmetrical, Breath sounds are clear bilaterally. GI: Abdomen is non-distended. : No signs and/or symptoms were reported regarding the genitourinary system. Derm: Skin is pink, warm \T\ dry. Musculoskeletal: Circulation, motion, and sensation intact. 23:12 Reassessment: Patient returned from CT. lp1 07/31 00:00 Reassessment: Patient resting, eyes closed, respirations unlabored; family at bedside. lp1 00:45 Reassessment: Patient states pain returning to lower right anterior chest; Provider lp1 notified. 01:17 Reassessment: Dr. Hull at bedside to discuss results with patient and family; Assessed lp1 without O2 via NC, patient's O2 at 91% on RA. 02:45 Reassessment: Patient complaint of continued pain; See DeskActive for med administration lp1 orders. Vital Signs: 07/30 22:39 BP 133 / 80; Pulse 83; Resp 18; Temp 97.6; Pulse Ox 90% on R/A; Pain 6/10; la1 22:52 Weight 80.29 kg; Height 5 ft. 8 in. (172.72 cm); lp1 23:15 BP 113 / 71; Pulse 69; Resp 22; Pulse Ox 92% on 2 lpm NC; lp1 07/31 00:00 BP 119 / 63; Pulse 68; Resp 24; Pulse Ox 92% on 2 lpm NC; lp1 00:45 BP 141 / 75; Pulse 72; Resp 19; Pulse Ox 96% on 2 lpm NC; lp1 01:30 BP 129 / 68; Pulse 70; Resp 24; Pulse Ox 94% on 2 lpm NC; lp1 02:15 BP 136 / 77; Pulse 80; Resp 14; Pulse Ox 96% on 2 lpm NC; lp1 07/30 22:52 Body Mass Index 26.91 (80.29 kg, 172.72 cm) lp1 [place] Coma Score: 12/24 22:45 Eye Response: spontaneous(4). Verbal Response: oriented(5). Motor Response: obeys lp1 commands(6). Total: 15. Trauma Score (Adult): 22:45 Eye Response: spontaneous(1); Verbal Response: oriented(1); Motor Response: obeys lp1 commands(2); Systolic BP: > 89 mm Hg(4); Respiratory Rate: 10 to 29 per min(4); Saman Score: 15; Trauma Score: 12 23:15 Eye Response: spontaneous(1); Verbal Response: oriented(1); Motor Response: obeys lp1 commands(2); Systolic BP: > 89 mm Hg(4); Respiratory Rate: 10 to 29 per min(4); Saman Score: 15; Trauma Score: 12 ED Course: 22:23 Patient arrived in ED. al2 22:23 Dayton Hull MD is Attending Physician. pkl 22:34 Triage completed. la1 22:39 Arm band placed on right wrist. la1 22:45 Patient has correct armband on for positive identification. Placed in gown. Bed in low lp1 position. Call light in reach. Side rails up X2. environmental monitoring technician on. Pulse ox on. NIBP on. 22:45 Maintain EMS IV. Dressing intact. Good blood return noted. Site clean \T\ dry. Gauge \T\ lp 1 site: 18 g to L AC. 22:45 Oxygen administration via nasal cannula \T\ 2L/min. lp1 22:45 Thermoregulation: warm blanket given to patient. lp1 22:48 Basic Metabolic Panel Sent. mw2 22:49 XRAY Chest (1 view) Sent. mw2 22:51 XRAY Chest (1 view) In Process Unspecified. EDMS 22:[address] stretcher. lp1 22:51 EKG done, by ED staff, reviewed by Dayton Hull MD. lp1 22:52 X-ray completed. Portable x-ray completed in exam room. Patient tolerated procedure sg4 well. 23:04 CT completed. Patient tolerated procedure well. Patient moved back from CT. nj 23:04 CT Head C Spine In Process Unspecified. EDMS 23:04 CT Chest Wo Con In Process Unspecified. EDMS 23:06 Columba Guerrero, INDIRA is Primary Nurse. lp1 07/31 01:12 René Munoz MD is Hospitalizing Provider. pkl 02:38 No provider procedures requiring assistance completed. Patient admitted, IV remains in lp1 place. Administered Medications: 00:58 Drug: fentaNYL (PF) 25 mcg Route: IVP; Site: left antecubital; lp1 02:39 Follow up: Response: Pain is decreased lp1 Intake: 07/30 23:15 IV: 0ml; Total: 0ml. lp1 Output: 23:15 Urine: 0ml; Total: 0ml. lp1 Outcome: 07/31 01:14 Decision to Hospitalize by Provider. pkl 02:38 Condition: stable lp1 02:38 Instructed on the need for admit. 02:38 Patient's length of stay in the Emergency Department was greater than 2 hours. Due to lp1 imaging results Patient's length of stay extended due to 03:00 Admitted to ICU accompanied by nurse, via stretcher, room 8, with oxygen, with chart, lp1 Report called to INDIRA Arreguin 03:00 Patient left the ED. lp1 Signatures: Dispatcher [employer] EDMS Dayton Hull MD MD pkl Columba Guerrero RN RN lp1 Juan F Bolaños RN RN la1 Perfecto Mathis, Lori alZahra Bhat 2 Tish Melissa4 Corrections: (The following items were deleted from the chart) 00:42 07/30 22:45 Neuro: Level of Consciousness is awake, alert, obeys commands, Oriented to lp1 person, place, time, situation, Pupils are PERRLA, lp1 07/31 03:25 03:25 Patient left the ED. lp1 lp1
--- NOTE | 2018-07-31 01:15 | EDPHYS ---
Physician Documentation [facility] Name: Erick Rodriguez Age: 67 yrs Sex: Male : 1950 Arrival Date: 07/30/2018 Time: 22:23 Bed 5 Private MD: ED Physician Dayton Hull HPI: 07/30 22:38 This 67 yrs old Male presents to ER via EMS with complaints of Fall Injury. pkl 22:38 Details of fall: The patient fell from an upright position, while standing. Onset: The pkl symptoms/episode began/occurred just prior to arrival. Associated injuries: The patient sustained injury to the head, contusion, injury to the chest, specifically the right cage, contusion. Patient had stroke in 2017. Still recovering with weakness right upper and lower extremities. Historical: - Allergies: 22:38 Sulfa (Sulfonamide Antibiotics); la1 - Home Meds: 22:38 aspirin 81 mg Oral TbEC 1 tab once daily [Active]; Lexapro 20 mg Oral tab 1 tab once la1 daily [Active]; hydrochlorothiazide 12.5 mg Oral tab 1 tab once daily [Active]; amlodipine 5 mg tab 1 tab BID [Active]; ramipril 10 mg Oral cap 1 cap 2 times per day [Active]; Zocor 20 mg Oral tab 1 tab once daily [Active]; meclizine 12.5 mg Oral tab 1 tabs 2 times per day [Active]; - PMHx: 22:38 CVA; Aortic valve replacement (cow); Hypertension; Hyperlipidemia; la1 - PSHx: 22:38 CABG; la1 - Immunization history:: Adult Immunizations up to date. - Social history:: Smoking status: Patient/guardian denies using tobacco. - Immunization history: Last tetanus immunization: unknown. - Ebola Screening: : No symptoms or risks identified at this time. ROS: 22:38 Eyes: Negative for injury, pain, redness, and discharge, ENT: Negative for injury, pkl pain, and discharge, Neck: Negative for injury, pain, and swelling, Cardiovascular: Negative for chest pain, palpitations, and edema, Respiratory: Negative for shortness of breath, cough, wheezing, and pleuritic chest pain, Abdomen/GI: Negative for abdominal pain, nausea, vomiting, diarrhea, and constipation, Back: Negative for injury and pain, : Negative for injury, bleeding, discharge, and swelling, MS/Extremity: Negative for injury and deformity, Skin: Negative for injury, rash, and discoloration. 22:38 Neuro: Negative for altered mental status, loss of consciousness. Exam: 22:38 Head/Face: Normocephalic, atraumatic. Eyes: Pupils equal round and reactive to light, pkl extra-ocular motions intact. Lids and lashes normal. Conjunctiva and sclera are non-icteric and not injected. Cornea within normal limits. Periorbital areas with no swelling, redness, or edema. ENT: Nares patent. No nasal discharge, no septal abnormalities noted. Tympanic membranes are normal and external auditory canals are clear. Oropharynx with no redness, swelling, or masses, exudates, or evidence of obstruction, uvula midline. Mucous membranes moist. Neck: Trachea midline, no thyromegaly or masses palpated, and no cervical lymphadenopathy. Supple, full range of motion without nuchal rigidity, or vertebral point tenderness. No Meningismus. 22:38 Chest/axilla: Palpation: tenderness, that is moderate, of the right rib cage. 22:38 Cardiovascular: Rate: normal, Rhythm: regular. 22:38 Respiratory: the patient does not display signs of respiratory distress, Respirations: normal, Breath sounds: are clear throughout. 22:38 Abdomen/GI: Bowel sounds: Palpation: abdomen is soft and non-tender, in all quadrants. 22:38 Back: Exam negative for acute changes. 22:38 : Exam negative for acute changes. 22:38 Musculoskeletal/extremity: Exam is negative for acute changes. 22:38 Skin: Exam negative for rash. 22:38 Neuro: Orientation: appropriate for stated age, Mentation: appropriate for stated age, Cranial nerves: grossly normal, Motor: Strength is 2/5 in the , right upper and lower extremities. Vital Signs: 22:39 BP 133 / 80; Pulse 83; Resp 18; Temp 97.6; Pulse Ox 90% on R/A; Pain 6/10; la1 22:52 Weight 80.29 kg; Height 5 ft. 8 in. (172.72 cm); lp1 23:15 BP 113 / 71; Pulse 69; Resp 22; Pulse Ox 92% on 2 lpm NC; lp1 07/31 00:00 BP 119 / 63; Pulse 68; Resp 24; Pulse Ox 92% on 2 lpm NC; lp1 00:45 BP 141 / 75; Pulse 72; Resp 19; Pulse Ox 96% on 2 lpm NC; lp1 01:30 BP 129 / 68; Pulse 70; Resp 24; Pulse Ox 94% on 2 lpm NC; lp1 02:15 BP 136 / 77; Pulse 80; Resp 14; Pulse Ox 96% on 2 lpm NC; lp1 07/30 22:52 Body Mass Index 26.91 (80.29 kg, 172.72 cm) lp1 Saman Coma Score: 07/30 22:45 Eye Response: spontaneous(4). Verbal Response: oriented(5). Motor Response: obeys lp1 commands(6). Total: 15. Trauma Score (Adult): 22:45 Eye Response: spontaneous(1); Verbal Response: oriented(1); Motor Response: obeys lp1 commands(2); Systolic BP: > 89 mm Hg(4); Respiratory Rate: 10 to 29 per min(4); Saman Score: 15; Trauma Score: 12 23:15 Eye Response: spontaneous(1); Verbal Response: oriented(1); Motor Response: obeys lp1 commands(2); Systolic BP: > 89 mm Hg(4); Respiratory Rate: 10 to 29 per min(4); [place] Score: 15; Trauma Score: 12 MDM: 22:23 Patient medically screened. [facility] 07/31 01:12 Data reviewed: vital signs, nurses notes, lab test result(s), EKG, radiologic studies, pkl CT scan, plain films. 07/30 22:35 Order name: Basic Metabolic Panel [facility] 07/30 22:35 Order name: CBC with Diff; Complete Time: 00:25 pk 07/30 22:35 Order name: LFT's; Complete Time: 23:37 pk 07/30 22:35 Order name: Magnesium; Complete Time: 23:37 pk 07/30 22:35 Order name: NT PRO-BNP; Complete Time: 23:37 pk 07/30 22:35 Order name: PT-INR; Complete Time: 00:25 [facility] 07/30 22:35 Order name: Troponin (emerg Dept Use Only); Complete Time: 23:37 [facility] 07/30 22:35 Order name: XRAY Chest (1 view) pk 07/30 22:36 Order name: Basic Metabolic Panel; Complete Time: 23:37 EDMS 07/30 22:37 Order name: CT Head C Spine pkl 07/30 22:37 Order name: CT Chest Wo Con pkl 07/30 22:46 Order name: ABG pkl 07/30 22:47 Order name: ABG Arterial Blood Gas; Complete Time: 00:25 EDMS 07/30 22:35 Order name: EKG; Complete Time: 22:36 pkl 07/30 22:35 Order name: Cardiac monitoring; Complete Time: 22:42 pkl 07/30 22:35 Order name: EKG - Nurse/Tech; Complete Time: 22:47 pkl 07/30 22:35 Order name: IV Saline Lock; Complete Time: 22:42 pkl 07/30 22:35 Order name: Labs collected and sent; Complete Time: 22:48 pkl 07/30 22:35 Order name: O2 Per Protocol; Complete Time: 22:42 pkl 07/30 22:35 Order name: O2 Sat Monitoring; Complete Time: 22:42 pkl Administered Medications: 00:58 Drug: fentaNYL (PF) 25 mcg Route: IVP; Site: left antecubital; lp1 02:39 Follow up: Response: Pain is decreased lp1 Disposition: 07/31/18 01:14 Hospitalization ordered by René Munoz for Observation. Preliminary diagnosis is Fractures right 6th and 7th ribs. S/P fall. - Bed requested for Intensive Care Unit. - Status is Observation. lp1 - Condition is Stable. - Problem is new. - Symptoms are unchanged. UTI on Admission? No Signatures: Dispatcher [employer] EDMS Virginie Carrizales RN Dayton Lopez MD MD pkl Genesis Corado RN RN Columba Guerrero RN RN lp1 Juan F Bolaños RN RN la1 Corrections: (The following items were deleted from the chart) 02: 01:14 Hospitalization Ordered by René Munoz MD for Observation. Preliminary kl diagnosis is Fractures right 6th and 7th ribs. S/P fall. Bed requested for Telemetry/MedSurg (observation). Status is Observation. Condition is Stable. Problem is new. Symptoms are unchanged. UTI on Admission? No. pkl 03:25 02:22 07/31/2018 01:14 Hospitalization Ordered by René Munoz MD for Observation. lp1 Preliminary diagnosis is Fractures right 6th and 7th ribs. S/P fall. Bed requested for Intensive Care Unit. Status is Observation. Condition is Stable. Problem is new. Symptoms are unchanged. UTI on Admission? No. kl
--- NOTE | 2018-07-31 02:14 | P.HP ---
Certification for Inpatient Patient admitted to: Observation With expected LOS: <2 Midnights Practitioner: I am a practitioner with admitting privileges, knowledge of patient current condition, hospital course, and medical plan of care. Services: Services provided to patient in accordance with Admission requirements found in Title 42 Section 412.3 of the Code of Federal Regulations Patient History Date of Service: 07/31/18 Reason for admission: rib fracture History of Present Illness: Mr Rodriguez is a 67 years old male with history of CAD s/p CABG, valve replacement about 1 year ago, complicated with a CVA, ambulatory with a cane, who fell last night after tripped. He landed over his right side. Immediately he start complaining of right side chest wall pain. He denied dizziness or palpitation prior to the fall. At arrival his O2 sat was 90% on RA, he was very painfull. CT chest remarkable for right 6th rib displaced fracture and 7th rib nondisplaced fracture. Allergies Sulfa (Sulfonamide Antibiotics) Allergy (Verified 05/07/18 08:31) Rash Home medications list reviewed: Yes Home Medications: Amiodarone HCl [Pacerone] 200 mg PO DAILY 01/11/18 Aspirin [Aspirin EC 81 MG] 81 mg PO DAILY 01/11/18 Baclofen [Lioresal*] 10 mg PO Q8H 01/11/18 Docusate [Colace Cap*] 100 mg PO DAILY PRN 01/11/18 Escitalopram [Lexapro*] 20 mg PO DAILY 6PM 01/11/18 Esomeprazole Magnesium [Nexium 24Hr] 1 tab PO DAILY 01/11/18 Ramipril [Altace] 10 mg PO TID 01/11/18 Simvastatin 20 mg PO BEDTIME 01/11/18 Acetaminophen [Tylenol Extra Strength] 500 mg PO PRN PRN 05/07/18 Amlodipine Besylate [Norvasc] 5 mg PO BID 05/07/18 hydroCHLOROthiazide [Hydrochlorothiazide*] 12.5 mg PO DAILY 05/07/18 - Past Medical/Surgical History Diabetic: No -: HTN -: Hyperlipidemia -: Stroke 2018 -: Prostate CA -: DVT Left lower leg and right upper arm -: obs sleep apnea -: Bypass CABG -: S/p Traceostomy -: S/p PEG -: S/p Carotid endodarterectomy -: s/p Aortic valve replacement - Family History Father -: Heart disease, Stroke Mother -: Heart disease, Diabetes - Social History Smoking Status: Never smoker Alcohol use: Yes CD- Drugs: No Caffeine use: Yes Place of Residence: Home Review of Systems 10-point ROS is otherwise unremarkable Physical Examination - Physical Exam General: Alert, In no apparent distress HEENT: Atraumatic, PERRLA, Mucous membr. moist/pink, EOMI, Sclerae nonicteric Neck: Supple, 2+ carotid pulse no bruit, No LAD, Without JVD or thyroid abnormality Respiratory: Diminished, Rhonchi/gurgles (scattered ronchi) Cardiovascular: Normal S1 S2, No gallops Gastrointestinal: Normal bowel sounds, No tenderness Musculoskeletal: Tenderness (right chest wall tenderness) Integumentary: No rashes Neurological: Normal speech, Normal strength at 5/5 x4 extr, Normal tone, Normal affect Lymphatics: No axilla or inguinal lymphadenopathy - Studies Laboratory Data (last 24 hrs) 07/30/18 10:45: PT 12.9 H, INR 1.09 07/30/18 10:45: WBC 14.0 H, Hgb 13.9, Hct 41.1, Plt Count 283 07/30/18 10:45: Sodium 138, Potassium 4.0, BUN 25 H, Creatinine 1.17, Glucose 120 H, Magnesium 2.0, Total Bilirubin 0.4, AST 23, ALT 49, Alkaline Phosphatase 60 Assessment and Plan - Problems (Diagnosis) (1) Rib fracture Current Visit: Yes Status: Acute Qualifiers: Encounter type: initial encounter Rib fracture type: multiple ribs Fracture type: closed Laterality: right Qualified Code(s): S22.41XA - Multiple fractures of ribs, right side, initial encounter for closed fracture (2) Respiratory failure Current Visit: Yes Status: Acute Qualifiers: Chronicity: acute Respiratory failure complication: hypoxia Qualified Code(s): J96.01 - Acute respiratory failure with hypoxia (3) HTN (hypertension) Current Visit: Yes Status: Acute Qualifiers: Hypertension type: essential hypertension Qualified Code(s): I10 - Essential (primary) hypertension (4) Fall Current Visit: Yes Status: Acute Qualifiers: Encounter type: initial encounter Qualified Code(s): W19.XXXA - Unspecified fall, initial encounter (5) History of CVA (cerebrovascular accident) Current Visit: Yes Status: Acute - Plan The patient will be admitted to the hospital under observation due to pain control secondary multiple rib fracture. His O2 sat drop without O2 support due to shallow breathing in context of chest wall pain. Will order Toradol, tramadol and incentive spirometry. - Advance Directives Does patient have a Living Will: No Does patient have a Durable POA for Healthcare: No - Code Status/Comfort Care Code Status Assessed: Yes Code Status: Full Code
[2018-07-31] MEDS ORDERED: ACETAMINOPHEN 500 MG TAB PO PRN (02:50)
[2018-07-31] MEDS ORDERED: ONDANSETRON 4 MG/2 ML VIAL IV PRN (02:50)
[2018-07-31] MEDS: KETOROLAC 30 MG/ML INJ IV PRN ×4 (02:59→21:07)
[2018-07-31] MEDS: TRAMADOL HCL 50 MG TAB PO PRN ×3 (03:44→17:42)
[2018-07-31 04:17] VITALS: BMI 26.8
--- NOTE | 2018-07-31 08:05 | RAD REPORT ---
EXAM DESCRIPTION: CT - Head C Spine Mpr Wo Con - 07/31/2018 7:49 am CLINICAL HISTORY: Head and neck injury status post fall. Head and neck pain COMPARISON: April [address] TECHNIQUE: Computed axial tomography of the head and cervical spine was obtained. Sagittal and coronal reconstruction was performed.Preliminary report generated by [employer] radiologic and reviewed prior to dictation All CT scans are performed using dose optimization technique as appropriate and may include automated exposure control or mA/KV adjustment according to patient size. FINDINGS: 3 centimeters low-density area within the right frontal lobe consistent with an old infarc tion. Additional low-density areas within the right and left basal ganglia represent additional old i nfarcts. Vascular calcifications An intracranial bleed is not seen. The ventricles are normal in caliber. An extra-axial fluid collect ion is not noted.Fluid within the visualized sinuses and mastoids is not seen A cervical fracture is not visualized. No dislocation is noted. A small central disc herniation C2-3 suspected IMPRESSION: No acute intracranial abnormality is seen. A cervical fracture is not visualized. If the patient continues to have symptoms to suggest intracra nial /spinal cord pathology then MRI would be recommended
--- NOTE | 2018-07-31 08:14 | RAD REPORT ---
EXAM DESCRIPTION: CT - Thorax Wo Con - 07/31/2018 7:49 am CLINICAL HISTORY: Chest pain/right rib pain status post fall COMPARISON: None TECHNIQUE: Computed axial tomography of the chest was obtained. Contrast was not requested. Preliminary report generated by [employer] radiologic and reviewed prior to dictation All CT scans are p erformed using dose optimization technique as appropriate and may include automated exposure control or mA/KV adjustment according to patient size. FINDINGS: The evaluation of mediastinum, thea and vessels is limited secondary to lack of IV contras t administration. Mildly displaced fracture involves the right posterior 6 rib. Minimally displaced fracture involves t he right lateral seventh rib A pleural effusion is not present. A pericardial effusion is not present. A pulmonary contusion not seen. Coronary arterial calcifications IMPRESSION: Right rib fractures
--- NOTE | 2018-07-31 08:15 | RAD REPORT ---
EXAM DESCRIPTION: Alvaro Single View07/30/2018 10:51 pm CLINICAL HISTORY: Chest pain COMPARISON: January 2018 FINDINGS: The heart is mildly enlarged. Postsurgical changes involve the chest. Few areas of atelect asis are present within the right lung Patient's known right rib fracture are not clearly seen on this exam
[2018-07-31] MEDS ORDERED: ASPIRIN 81 MG CHEWABLE TABLET PO SCH (10:00)
[2018-07-31] MEDS ORDERED: AMLODIPINE 5 MG TAB PO SCH (10:00)
[2018-07-31] MEDS ORDERED: hydroCHLOROthiazide 25 MG TAB PO SCH (10:00)
[2018-07-31] MEDS ORDERED: MECLIZINE HCL 12.5 MG TAB PO SCH (10:00)
[2018-07-31] MEDS ORDERED: ESCITALOPRAM 20 MG TAB PO SCH (10:00)
--- NOTE | 2018-07-31 10:03 | EKG ---
Test Date: 2018-07-30 Test Time: 22:46:54 Dental Assistant: ANIKA MEASUREMENT RESULTS: Intervals: Rate: 70 HI: 186 QRSD: 90 QT: 412 QTc: 444 [place]: P: 38 HI: 186 QRS: 3 T: 90 INTERPRETIVE STATEMENTS: Normal sinus rhythm Inferior infarct, age undetermined Anterior infarct, age undetermined Abnormal ECG Compared to ECG 08/10/2017 16:51:54 Myocardial infarct finding now present ST (T wave) deviation no longer present Possible ischemia no longer present Electronically Signed On 07-31-18 09:54:28 [employer]KE [employer] by Bacilio Ibarra
[2018-07-31] MEDS: RAMIPRIL 5 MG CAP PO SCH ×2 (10:26→21:17)
[2018-07-31] MEDS ORDERED: ATORVASTATIN 10 MG TAB PO SCH ×2 (21:00)
[2018-07-31] MEDS ORDERED: HOME MED 1 EA UNK (Ramipril [Altace] 10 MG) PO SCH (21:00)
[2018-07-31] MEDS: AMLODIPINE 5 MG TAB PO SCH (21:18)
[2018-07-31] MEDS: MECLIZINE HCL 12.5 MG TAB PO SCH (21:19)
[2018-08-01] MEDS: TRAMADOL HCL 50 MG TAB PO PRN ×2 (04:00→10:05)
[2018-08-01 06:09] LABS: Absolute Lymphocytes (CBC) 1.4 K/uL (0.7-4.9); Absolute Monocytes 0.8 K/uL (0.1-1.3); Absolute Neutrophil 5.7 K/uL (1.8-8.0); Basophils % 0.5 % (0-1.3); Eosinophils % 2.3 % (0-4.4); Hematocrit 38.8 % (39.6-49.0); Lymphocytes % 17.5 % (15.3-44.8); Monocytes % 10.2 % (3.3-12.3)
[2018-08-01 06:10] LABS: Potassium 3.8 mmol/L (3.5-5.1)
[2018-08-01] MEDS: KETOROLAC 30 MG/ML INJ IV PRN (06:50)
[2018-08-01] MEDS ORDERED: hydroCHLOROthiazide 12.5 MG CAP PO SCH (09:00)
[2018-08-01] MEDS ORDERED: ESCITALOPRAM 20 MG TAB PO SCH ×2 (09:00→10:00)
[2018-08-01] MEDS ORDERED: ZOCOR 20 MG PO SCH (09:00)
[2018-08-01] MEDS ORDERED: ASPIRIN EC 81 MG TAB PO SCH (09:00)
[2018-08-01] MEDS: RAMIPRIL 5 MG CAP PO SCH (09:16)
[2018-08-01] MEDS: MECLIZINE HCL 12.5 MG TAB PO SCH (09:16)
[2018-08-01] MEDS: AMLODIPINE 5 MG TAB PO SCH (09:17)
[2018-08-01 09:20] VITALS: TEMP 97.8
[2018-08-01] MEDS ORDERED: ASPIRIN 81 MG CHEWABLE TABLET PO SCH (10:00)
[2018-08-01 11:34] VITALS: O2SAT 91
[2018-08-01 13:32] VITALS: BP 140/88
--- NOTE | 2018-08-02 07:07 | DS ---
Date of Discharge: 08/01/2018 Discharge Diagnoses: Rib fracture, improved. secondary to chest wall pain secondary to fr acture, improved with pain controlled and resolved. Hypertension, history of cerebrovascular acciden t, history of fall. Consult: None. Procedure: CT of the chest on the 30 of July showed right rib fracture with mildly displaced f racture involving the right 6th rib, nondisplaced fracture involving the right 7th rib. CT head show ed fracture is not visualized. No acute intracranial abnormalities. History Of Present Illness: Please refer to Dr. Norris's admission note. Hospital Course: Initially, patient presented with history of fall on [employer] after he tripped . The patient landed on his right side and started to have right-sided chest pain. In the ER, he wa s evaluated and found to be hypoxic and he was not able to take deep breaths secondary to the pain. CT of the chest showed right 6th rib displaced fracture as well as 7th rib nondisplaced fracture. Th e patient was started with tramadol and he did well overnight. He was observed. He will be discharged today in stable condition. He will be given pain medication with tramadol 50 every 6 h ours as needed. He is to follow up with primary care physician as before. He will continue all his home medications. Discharge Condition: Stable. Discharged Diet: Cardiac. Discharge Followup: With primary care physician in 1 week. Discharge Activity: As tolerated. Discharge Physical Examination: Discharge Vital Signs: Blood pressure is 152/72, respiratory rate 1 8, pulse 68, temperature 99.8. General: He is alert and oriented x3. He does not look in any distress. HEENT: Atraumatic, normocephalic. PERRLA. Oral mucosa is moist. Neck: Supple. No JVD. No carotid bruits. Chest: Clear to auscultation. Good air entry. Chest drying machine tender on the right side to palpation. Heart: Regular rate and rhythm. S1, S2 normal. No gallop or murmur. Abdomen: Soft, nontender. No masses. No hepatosplenomegaly. Positive bowel sounds. Extremities: No clubbing, cyanosis, or edema. WESLEY/SEBASTIAN Voice ID: [id number] Report ID: [id number]
== END 2018-08-01 13:32 | disposition home health service (06) ==
LOC: ER 22:22 → ERHOLD 07-31 01:56 → 3RD-ICU 07-31 02:55 → 4TH 07-31 14:25
PROVIDERS: ADMIT Internal Medicine; ATTEND Internal Medicine
DX: S22.41XA Multiple fractures of ribs, right side, initial encounter for closed fracture (principal); W01.0XXA Fall on same level from slipping, tripping and stumbling without subsequent striking against object, initial encounter; Y92.001 Dining room of unspecified non-institutional (private) residence as the place of occurrence of the external cause; J96.01 Acute respiratory failure with hypoxia; G47.33 Obstructive sleep apnea (adult) (pediatric); I10 Essential (primary) hypertension; I69.353 Hemiplegia and hemiparesis following cerebral infarction affecting right non-dominant side; Z95.1 Presence of aortocoronary bypass graft; Z95.2 Presence of prosthetic heart valve; Z88.2 Allergy status to sulfonamides
CPT/HCPCS: 36415; 70450; 71045; 71250; 72125; 80048; 80076; 82805; 83735; 83880; 84484; 85025; 85610; 93005; 94760; 96374; 99285; G0378; J3010

== ENCOUNTER 2018-08-02 18:20 | Inpatient (IN) | payer OTHER, BC ==
[2018-08-02] MEDS ORDERED: IPRATROPIUM BROM 0.5MG/2.5ML ONE (19:37)
[2018-08-02] MEDS ORDERED: ALBUTEROL 2.5 MG/3 ML NEB SOL ONE (19:37)
[2018-08-02] MEDS ORDERED: ONDANSETRON 4 MG/2 ML VIAL ONE (19:49)
[2018-08-02] MEDS ORDERED: MORPHINE 4 MG/ML SYR ONE ×2 (19:49→23:18)
[2018-08-02 20:38] LABS: Absolute Lymphocytes (CBC) 2.1 K/uL (0.7-4.9); Absolute Neutrophil 8.8 K/uL (1.8-8.0); Basophils % 0.3 % (0-1.3); Eosinophils % 0.9 % (0-4.4); Hematocrit 39.2 % (39.6-49.0); Lymphocytes % 17.3 % (15.3-44.8); MPV 7.6 fL (7.6-11.3); Monocytes % 8.5 % (3.3-12.3); RBC Red Blood Cell Count 4.45 M/uL (4.33-5.43)
[2018-08-02 20:42] LABS: Protime INR 1.1
[2018-08-02 20:56] LABS: ALT/SGPT 32 U/L (12-78); AST/SGOT 17 U/L (15-37); Albumin 3.6 g/dL (3.4-5.0); Alkaline Phosphatase 66 U/L (45-117); BUN Blood Urea Nitrogen 25 mg/dL (7-18); Bicarbonate 28 mmol/L (21-32); Bilirubin Direct 0.3 mg/dL (0-0.2); Bilirubin Total 0.8 mg/dL (0.2-1.0); CKMB Creatine Kinase MB 5.8 ng/mL (0.3-3.6); Creatine Phosphokinase 515 U/L (39-308); Glucose Level 117 mg/dL (74-106); Lipase 42 U/L (73-393); Magnesium 2.2 mg/dL (1.8-2.4); NT PRO-BNP 63 pg/mL (<125); Potassium 3.5 mmol/L (3.5-5.1); Protein, Total 7.5 g/dL (6.4-8.2); Sodium Level 136 mmol/L (136-145); Troponin (Emerg Dept Use Only) < 0.02 ng/mL (0.0-0.045)
--- NOTE | 2018-08-02 21:04 | EDPHYS ---
Physician Documentation [facility] Name: Erick Rodriguez Age: 67 yrs Sex: Male : 1950 Arrival Date: 08/02/2018 Time: 18:23 Bed 19 Private MD: Sharad Stewart C ED Physician Abraham Putnam HPI: 08/02 22:57 This 67 yrs old Male presents to ER via Wheelchair with complaints of tw4 Congestion, Cough. 22:57 The patient or guardian reports cough, that is constant, difficulty breathing. Onset: tw4 The symptoms/episode began/occurred today. Severity of symptoms: At their worst the symptoms were moderate, in the emergency department the symptoms are unchanged. Modifying factors: The symptoms are alleviated by nothing, the symptoms are aggravated by nothing. The patient has not experienced similar symptoms in the past. The patient has been recently been admitted at [facility]. Historical: - Allergies: 18:43 Sulfa (Sulfonamide Antibiotics); ph - PMHx: 18:43 Aortic valve replacement (cow); CVA; Hyperlipidemia; Hypertension; ph - PSHx: 18:43 CABG; ph - Immunization history:: Adult Immunizations up to date. - Social history:: Smoking status: Patient/guardian denies using tobacco. - Ebola Screening: : No symptoms or risks identified at this time. ROS: 22:57 Constitutional: Negative for fever, chills, and weight loss, Neck: Negative for injury, tw4 pain, and swelling, Abdomen/GI: Negative for abdominal pain, nausea, vomiting, diarrhea, and constipation, Back: Negative for injury and pain, MS/Extremity: Negative for injury and deformity, Skin: Negative for injury, rash, and discoloration, Neuro: Negative for headache, weakness, numbness, tingling, and seizure. 22:57 Respiratory: Positive for cough, "sounds productive". Exam: 22:57 Constitutional: This is a well developed, well nourished patient who is awake, alert, tw4 and in no acute distress. Head/Face: Normocephalic, atraumatic. Chest/axilla: Normal chest wall appearance and motion. Nontender with no deformity. No lesions are appreciated. Cardiovascular: Regular rate and rhythm with a normal S1 and S2. No gallops, murmurs, or rubs. Normal PMI, no JVD. No pulse deficits. Respiratory: Lungs have equal breath sounds bilaterally, clear to auscultation and percussion. No rales, rhonchi or wheezes noted. No increased work of breathing, no retractions or nasal flaring. Abdomen/GI: Soft, non-tender, with normal bowel sounds. No distension or tympany. No guarding or rebound. No evidence of tenderness throughout. Back: No spinal tenderness. No costovertebral tenderness. Full range of motion. MS/ Extremity: Pulses equal, no cyanosis. Neurovascular intact. Full, normal range of motion. Neuro: Awake and alert, GCS 15, oriented to person, place, time, and situation. Cranial nerves II-XII grossly intact. Motor strength 5/5 in all extremities. Sensory grossly intact. Cerebellar exam normal. Normal gait. 23:02 ECG was reviewed by the Attending Physician. tw4 Vital Signs: 18:43 BP 116 / 79; Pulse 90; Resp 20; Temp 99.3(O); Pulse Ox 89% on R/A; Weight 80.29 kg; ph Height 5 ft. 8 in. (172.72 cm); 19:50 BP 130 / 70; Pulse 88; Resp 18; Pulse Ox 98% on R/A; ea 23:00 BP 134 / 84; Pulse 92; Resp 32; Temp 99.3; Pulse Ox 92% ; rr5 18:43 Body Mass Index 26.91 (80.29 kg, 172.72 cm) ph MDM: 19:20 Patient medically screened. tw4 22:57 Data reviewed: vital signs, nurses notes. Data interpreted: laboratory monitor: rhythm is tw4 normal sinus rhythm, Pulse oximetry: Interpretation: hypoxia. Test interpretation: by ED physician or midlevel provider: plain radiologic studies. Counseling: I had a detailed discussion with the patient and/or guardian regarding: the historical points, exam findings, and any diagnostic results supporting the discharge/admit diagnosis, lab results, radiology results. Medication response: albuterol nebulizer treatment(s) partially relieved the patient's wheezing. Response to treatment: the patient's symptoms have mildly improved after treatment, and as a result, I will discharge patient. Physician consultation: René Munoz MD regarding patient's condition, and will see patient. 08/02 19:29 Order name: Blood Culture Adult (2) tw4 08/02 19:29 Order name: BMP tw4 08/02 19:29 Order name: CBC with Diff tw 08/02 19:29 Order name: Ckmb [facility] 08/02 19:29 Order name: CPK [facility] 08/02 19:29 Order name: D-Dimer [facility] 08/02 19:29 Order name: Hepatic Function [facility] 08/02 19:29 Order name: Lipase [facility] 08/02 19:29 Order name: Magnesium [facility] 08/02 19:29 Order name: NT PRO-BNP [facility] 08/02 19:29 Order name: PT-INR [facility] 08/02 19:29 Order name: Ptt, Activated tw 08/02 19:29 Order name: Troponin (emerg Dept Use Only) [facility] 08/02 19:29 Order name: Lactate [facility] 08/02 19:29 Order name: XRAY CXR (1 view) [facility] 08/02 19:29 Order name: EKG; Complete Time: 19:31 [facility] 08/02 19:29 Order name: Cardiac monitoring; Complete Time: 21:59 [facility] 08/02 19:29 Order name: EKG - Nurse/Tech; Complete Time: 21:59 [facility] 08/02 19:29 Order name: IV Saline Lock; Complete Time: 21:59 08/02 19:29 Order name: Labs collected and sent; Complete Time: 21:59 [facility] 08/02 19:29 Order name: O2 Per Protocol; Complete Time: 21:59 [facility] 08/02 19:29 Order name: O2 Sat Monitoring; Complete Time: 21:17 [facility] 08/02 19:30 Order name: Blood Culture [facility] 08/02 22:02 Order name: CT Chest For PE Angio EC:02 Rate is 87 beats/min. Rhythm is regular. QRS [place] is Normal. NH interval is normal. QRS tw4 interval is normal. QT interval is normal. Q waves are Present. T waves are Inverted in leads V3, V6. No ST changes noted. Clinical impression: Abnormal EKG without significant change. Interpreted by me. Reviewed by me. Administered Medications: 19:30 Drug: Albuterol - atroVENT (3:1) (2.5 mg - 0.5 mg) 3 ml Route: Nebulizer; ea 20:00 Follow up: Response: No adverse reaction; Marked relief of symptoms ea 19:40 Drug: morphine 2 mg Route: IVP; Site: left forearm; ea 20:00 Follow up: Response: No adverse reaction; Pain is decreased ea 19:40 Drug: Zofran 4 mg Route: IVP; Site: left forearm; ea 21:58 Follow up: Response: No adverse reaction; Marked relief of symptoms ea 22:59 Drug: Rocephin - (cefTRIAXone) 2 grams Route: IVPB; Infused Over: 30 mins; Site: left rr5 forearm; 23:30 Follow up: Response: No adverse reaction; IV Status: Completed infusion; IV Intake: rr5 100ml 23:12 Drug: morphine 2 mg Route: IVP; Site: left wrist; ea 23:38 Follow up: Response: No adverse reaction rr5 Disposition: 08/02/18 21:03 Hospitalization ordered by René Munoz for Inpatient Admission. Preliminary diagnosis are Pneumonia due to other specified infectious organisms, Hypoxemia. - Bed requested for Telemetry/MedSurg (Inpatient). - Status is Inpatient Admission. rr5 - Condition is Fair. - Problem is new. - Symptoms have improved. UTI on Admission? No Signatures: Dispatcher [employer] EDMS Noemi Astorga RN RN mw Hall, Patricia, RN RN ph Antunez, Elena, RN RN ea Wadley, Terrence, MD MD tw4 Darell Martinez RN RN rr5 Corrections: (The following items were deleted from the chart) 21:26 21:03 Hospitalization Ordered by René Munoz MD for Inpatient Admission. Preliminary diagnosis is Pneumonia due to other specified infectious organisms; Hypoxemia. Bed requested for Telemetry/MedSurg (Inpatient). Status is Inpatient Admission. Condition is Fair. Problem is new. Symptoms have improved. UTI on Admission? No. tw4 23:39 21:26 08/02/2018 21:03 Hospitalization Ordered by René Munoz MD for Inpatient rr5 Admission. Preliminary diagnosis is Pneumonia due to other specified infectious organisms; Hypoxemia. Bed requested for Telemetry/MedSurg (Inpatient). Status is Inpatient Admission. Condition is Fair. Problem is new. Symptoms have improved. UTI on Admission? No. mw
--- NOTE | 2018-08-02 21:04 | ER ---
Nurse's Notes [facility] Name: Erick Rodriguez Age: 67 yrs Sex: Male : 1950 Arrival Date: 08/02/2018 Time: 18:23 Bed 19 Private MD: Sharad Stewart C Diagnosis: Pneumonia due to other specified infectious organisms;Hypoxemia Presentation: 08/02 18:39 Presenting complaint: Child states: " He was admitted [facility] for broken ribs and ph d/c home yesterday. The home health nurse said that he sounds more congested than usual and that his oxygen level was low." Reports broken ribs on R side, pt reports slight SOB and fatigue, Spo2 89% RA in triage. Transition of care: patient was not received from another setting of care. Onset of symptoms was August 02, 2018. Risk Assessment: Do you want to hurt yourself or someone else? Patient reports no desire to harm self or others. Initial Sepsis Screen: Does the patient meet any 2 criteria? No. Patient's initial sepsis screen is negative. Care prior to arrival: None. 18:39 Method Of Arrival: Wheelchair ph 18:39 Acuity: CRISS 3 ph Historical: - Allergies: 18:43 Sulfa (Sulfonamide Antibiotics); ph - PMHx: 18:43 Aortic valve replacement (cow); CVA; Hyperlipidemia; Hypertension; ph - PSHx: 18:43 CABG; ph - Immunization history:: Adult Immunizations up to date. - Social history:: Smoking status: Patient/guardian denies using tobacco. - Ebola Screening: : No symptoms or risks identified at this time. Screenin:40 Abuse screen: Denies threats or abuse. Nutritional screening: No deficits noted. ea Tuberculosis screening: No symptoms or risk factors identified. Fall Risk Assessment: 19:40 General: Appears uncomfortable, Behavior is calm, cooperative, appropriate for age. ea Pain: Complains of pain in left side. Neuro: Level of Consciousness is awake, alert, obeys commands, Oriented to person, place, time, situation. Cardiovascular: Heart tones S1 S2 present Patient's skin is warm and dry. Respiratory: Airway is patent Respiratory effort is even, shallow, Respiratory pattern is regular, symmetrical, Breath sounds are coarse bilaterally. GI: Abdomen is round Bowel sounds present X 4 quads. Derm: Skin is dry, Skin is flushed, Skin temperature is warm. Musculoskeletal: Reports daughter reports he normally uses a cane but has been too weak to walk and is currently using wheelchair. 20:00 Reassessment: Patient and/or family updated on plan of care and expected duration. Pain ea level reassessed. Patient is alert, oriented x 3, equal unlabored respirations, skin warm/dry/pink. 21:00 Reassessment: Patient and/or family updated on plan of care and expected duration. Pain ea level reassessed. Patient is alert, oriented x 3, equal unlabored respirations, skin warm/dry/pink. 22:40 Reassessment: Patient and/or family updated on plan of care and expected duration. Pain ea level reassessed. Patient is alert, oriented x 3, equal unlabored respirations, skin warm/dry/pink. Returned form CT. Vital Signs: 18:43 BP 116 / 79; Pulse 90; Resp 20; Temp 99.3(O); Pulse Ox 89% on R/A; Weight 80.29 kg; ph Height 5 ft. 8 in. (172.72 cm); 19:50 BP 130 / 70; Pulse 88; Resp 18; Pulse Ox 98% on R/A; ea 23:00 BP 134 / 84; Pulse 92; Resp 32; Temp 99.3; Pulse Ox 92% ; rr5 18:43 Body Mass Index 26.91 (80.29 kg, 172.72 cm) ph ED Course: 18:23 Patient arrived in ED. mr 18:24 Sharad Stewart MD is Private Physician. mr 18:43 Triage completed. ph 18:44 Arm band placed on. ph 19:20 Abraham Putnam MD is Attending Physician. tw4 19:36 Madisyn Adorno RN is Primary Nurse. ea 19:40 Patient has correct armband on for positive identification. Bed in low position. Call ea light in reach. Side rails up X2. 19:40 Inserted saline lock: 22 gauge in left forearm, using aseptic technique. ea 19:49 Radiology exam delayed due to IV insertion attempt and/or patient not having az appropriate IV at this time. patient receiving breathing treatment at this time. 20:54 Notified ED physician of a critical lab result(s). d dimer 1258. fc 21:03 René Munoz MD is Hospitalizing Provider. tw4 21:06 XRAY CXR (1 view) In Process Unspecified. EDMS 22:[address] via stretcher. nj 22:30 CT completed. Patient tolerated procedure well. Patient moved back from CT. mn 23:00 No provider procedures requiring assistance completed. Patient admitted, IV remains in rr5 place. intact, No redness/swelling at site. Administered Medications: 19:30 Drug: Albuterol - atroVENT (3:1) (2.5 mg - 0.5 mg) 3 ml Route: Nebulizer; ea 20:00 Follow up: Response: No adverse reaction; Marked relief of symptoms ea 19:40 Drug: morphine 2 mg Route: IVP; Site: left forearm; ea 20:00 Follow up: Response: No adverse reaction; Pain is decreased ea 19:40 Drug: Zofran 4 mg Route: IVP; Site: left forearm; ea 21:58 Follow up: Response: No adverse reaction; Marked relief of symptoms ea 22:59 Drug: Rocephin - (cefTRIAXone) 2 grams Route: IVPB; Infused Over: 30 mins; Site: left rr5 forearm; 23:30 Follow up: Response: No adverse reaction; IV Status: Completed infusion; IV Intake: rr5 100ml 23:12 Drug: morphine 2 mg Route: IVP; Site: left wrist; ea 23:38 Follow up: Response: No adverse reaction rr5 Intake: 23:30 IV: 100ml; Total: 100ml. rr5 Outcome: 21:03 Decision to Hospitalize by Provider. tw4 23:00 Admitted to Tele accompanied by tech, via stretcher, with oxygen, with chart, Report rr5 called to [place] 23:00 Condition: stable 23:00 Instructed on the need for admit. 23:39 Patient left the ED. rr5 Signatures: Dispatcher [employer] EDWI Amarilys OlivarezGenesis, RN Kelsi Sharma RN RN Del, Madisyn Chan RN RN ea Wadley, Terrence, MD MD tw4 Jes Metz Raymond, RN RN rr5
--- NOTE | 2018-08-02 21:14 | RAD REPORT ---
EXAM DESCRIPTION: RAD - Chest Single View - 08/02/2018 9:05 pm CLINICAL HISTORY: CONGESTION Chest pain. COMPARISON: Chest Single View dated 07/30/2018; Chest Single View dated 01/11/2018; CHEST PA AND LAT 2 VIEW dated 12/28/2010; CHEST PA AND LAT 2 VIEW dated 12/21/2010 FINDINGS: Portable technique limits examination quality. The lungs are underinflated with atelectasis in both lung bases. The heart is mildly enlarged in size with sternotomy wires present. No displaced fractures. IMPRESSION: Underinflated lungs.
[2018-08-02] MEDS ORDERED: CEFTRIAXONE 1000 MG/VIAL ONE (22:38)
[2018-08-02] MEDS ORDERED: NA CHLORIDE 0.9% 100 ML IV ONE (22:38)
[2018-08-02] MEDS ORDERED: CEFTRIAXONE/SWI 1gm 0 GM/0 ML SYR ONE (22:55)
--- NOTE | 2018-08-02 23:07 | P.HP ---
Certification for Inpatient Patient admitted to: Observation With expected LOS: <2 Midnights Practitioner: I am a practitioner with admitting privileges, knowledge of patient current condition, hospital course, and medical plan of care. Services: Services provided to patient in accordance with Admission requirements found in Title 42 Section 412.3 of the Code of Federal Regulations Patient History Date of Service: 08/02/18 Reason for admission: acute respiratory failure History of Present Illness: Mr Rodriguez is a 67 years old male with history of CAD s/p CABG and aortic valve replacement complicated with a CVA, who was admitted early this week after sustained a fall and have 2 ribs fracture. He was discharged home yesterday. His daughter said that after his stroke, the patient does not managing very well his secretions, but today, he was gargling more than usual, having SOB. The home health nurse also said that he is more congestive today. No history of fever or chills. The patient still has right chest wall pain due to his recent rib fractures. Lab work shows 12.0K WBC, normal lactate, pending procalcitonin. CXR shows no new infiltrate. He is afebrile. Allergies Sulfa (Sulfonamide Antibiotics) Allergy (Verified 05/07/18 08:31) Rash Home medications list reviewed: Yes Home Medications: Amlodipine [Norvasc*] 5 mg PO BID 07/31/18 Aspirin [Adult Low Dose Aspirin EC] 81 mg PO DAILY 07/31/18 Escitalopram [Lexapro*] 20 mg PO DAILY 07/31/18 Meclizine HCl [Antivert*] 12.5 mg PO BID 07/31/18 Ramipril [Altace] 10 mg PO BID 07/31/18 Zocor 20 mg PO DAILY 07/31/18 hydroCHLOROthiazide [Hydrochlorothiazide*] 12.5 mg PO DAILY 07/31/18 traMADol HCL [Ultram*] 50 mg PO Q6H PRN 10 Days #40 tab 08/01/18 - Past Medical/Surgical History Diabetic: No -: HTN -: Hyperlipidemia -: Stroke 2018 -: Prostate CA -: DVT Left lower leg and right upper arm -: obs sleep apnea -: afib -: hypothyroidism -: rib fracute -: Bypass CABG -: S/p Tracheostomy -: S/p PEG -: S/p Carotid endodarterectomy -: s/p Aortic valve replacement -: Inguinal,umbilical hernia repair May 2018 - Family History Father -: Heart disease, Stroke Mother -: Heart disease, Diabetes - Social History Smoking Status: Never smoker Alcohol use: No CD- Drugs: No Caffeine use: Yes Place of Residence: Home Review of Systems 10-point ROS is otherwise unremarkable Physical Examination - Physical Exam General: Alert, In no apparent distress HEENT: Atraumatic, PERRLA, Mucous membr. moist/pink, EOMI, Sclerae nonicteric Neck: Supple, 2+ carotid pulse no bruit, No LAD, Without JVD or thyroid abnormality Respiratory: Diminished, Rhonchi/gurgles Cardiovascular: Normal S1 S2, No gallops Gastrointestinal: Normal bowel sounds, No tenderness Musculoskeletal: No tenderness Integumentary: No rashes Neurological: Normal strength at 5/5 x4 extr, Normal tone, Normal affect, Abnormal speech (slurred) Lymphatics: No axilla or inguinal lymphadenopathy - Studies Laboratory Data (last 24 hrs) 08/02/18 20:20: WBC 12.0 H D, Hgb 13.2 L, Hct 39.2 L, Plt Count 260 08/02/18 19:12: PT 13.0 H, INR 1.10, APTT 30.3 08/02/18 19:12: Sodium 136, Potassium 3.5, BUN 25 H, Creatinine 1.26, Glucose 117 H, Magnesium 2.2, Total Bilirubin 0.8, AST 17, ALT 32, Alkaline Phosphatase 66, Lipase 42 L Assessment and Plan - Problems (Diagnosis) (1) HTN (hypertension) Onset Date: 08/01/18 Current Visit: No Status: Acute Qualifiers: Hypertension type: essential hypertension Qualified Code(s): I10 - Essential (primary) hypertension (2) History of CVA (cerebrovascular accident) Current Visit: No Status: Acute (3) Respiratory failure Onset Date: 08/01/18 Current Visit: No Status: Acute Qualifiers: Chronicity: acute Respiratory failure complication: hypoxia Qualified Code(s): J96.01 - Acute respiratory failure with hypoxia (4) Rib fracture Onset Date: 08/01/18 Current Visit: No Status: Acute Qualifiers: Encounter type: subsequent encounter Rib fracture type: multiple ribs Fracture type: closed Laterality: right Fracture healing: with routine healing Qualified Code(s): S22.41XD - Multiple fractures of ribs, right side, subsequent encounter for fracture with routine healing - Plan The patient will be admitted to the hospital due to respiratory failure, likely secondary to increasing respiratory secretions, since he is not able to managing them out due to chest wall pain. At the moment will order breathing treatments and pulmonary hygiene. Will consider add empiric antibiotic if procalcitonin is positive. - Advance Directives Does patient have a Living Will: No Does patient have a Durable POA for Healthcare: No - Code Status/Comfort Care Code Status Assessed: Yes Code Status: Full Code
[2018-08-02] MEDS ORDERED: ONDANSETRON 4 MG/2 ML VIAL IV PRN (23:53)
[2018-08-03] MEDS: ACETAMINOPHEN 500 MG TAB PO PRN ×2 (01:17→08:45)
[2018-08-03 01:37] VITALS: BMI 26.9
[2018-08-03] MEDS: TRAMADOL HCL 50 MG TAB PO PRN ×3 (05:15→20:44)
--- NOTE | 2018-08-03 06:52 | EKG ---
Test Date: 2018-08-02 Test Time: 21:21:18 Heel Seat Sander: DENISSE MEASUREMENT RESULTS: Intervals: Rate: 87 NH: 182 QRSD: 98 QT: 386 QTc: 464 [place]: P: 32 NH: 182 QRS: -4 T: 63 INTERPRETIVE STATEMENTS: Normal sinus rhythm Inferior infarct, age undetermined Possible Anterior infarct, age undetermined Abnormal ECG Compared to ECG 07/30/2018 22:46:54 No significant changes Electronically Signed On 08-03-18 06:51:47 CONNIE CLEANER by Bruce Thomas
[2018-08-03 06:54] LABS: Absolute Lymphocytes (CBC) 0.7 K/uL (0.7-4.9); Absolute Monocytes 1.2 K/uL (0.1-1.3); Absolute Neutrophil 14.5 K/uL (1.8-8.0); Basophils % 0.1 % (0-1.3); Hematocrit 38.4 % (39.6-49.0); Lymphocytes % 4.3 % (15.3-44.8); MPV 7.8 fL (7.6-11.3); Monocytes % 7.3 % (3.3-12.3); RBC Red Blood Cell Count 4.44 M/uL (4.33-5.43)
[2018-08-03 07:02] LABS: Potassium 3.8 mmol/L (3.5-5.1)
[2018-08-03 07:38] LABS: Blood Morphology Comment NOT SEEN (NOT SEEN); Platelet Estimate ADEQ; Urine White Blood Cell Casts OK
[2018-08-03] MEDS ORDERED: INFLUENZA VACCINE (for 3y+) 0.5 ML DOSE IMVAC ONE (08:00)
--- NOTE | 2018-08-03 08:26 | RAD REPORT ---
EXAM DESCRIPTION: CT - Chest For Pe Angio - 08/03/2018 5:34 am CLINICAL HISTORY: Chest pain. CONGESTION COMPARISON: Thorax Wo Con dated 07/30/2018 TECHNIQUE: CT angiogram of the pulmonary arteries was performed with MIP. All CT scans are performed using dose optimization technique as appropriate and may include automated exposure control or mA/KV adjustment according to patient size. FINDINGS: No evidence of pulmonary thromboembolism. No acute aortic finding demonstrated. Airspace consolidation is seen involving both posterior lung bases with air bronchograms. Trace right pleural fluid. Posterior right sixth rib demonstrates acute mildly overriding fracture. IMPRESSION: No evidence of pulmonary thromboembolism. Airspace consolidation both lung bases posteriorly likely represent aspiration or pneumonia. Acute fracture right posterior sixth rib.
[2018-08-03] MEDS: ENOXAPARIN 40 MG/0.4 ML SQ SCH (08:47)
[2018-08-03] MEDS: Levofloxacin 750mg IV 750 MG/150 ML BAG IV SCH (13:01)
[2018-08-03] MEDS: LIDOCAINE 5% PATCH TOP SCH (13:01)
[2018-08-03] MEDS: IPRATROPIUM BROM 0.5MG/2.5ML NEB PRN (16:50)
[2018-08-03] MEDS: ALBUTEROL 2.5 MG/3 ML NEB SOL NEB PRN (16:50)
[2018-08-03] MEDS: MECLIZINE HCL 12.5 MG TAB PO SCH (20:43)
[2018-08-03] MEDS: AMLODIPINE 5 MG TAB PO SCH (20:43)
[2018-08-03] MEDS: RAMIPRIL 5 MG CAP PO SCH (20:44)
[2018-08-03] MEDS: ATORVASTATIN 10 MG TAB PO SCH (20:44)
--- NOTE | 2018-08-03 21:04 | PN ---
Date of Progress Note: 08/03/2018 Subjective: The patient is seen and examined. Chart reviewed and case discussed with RN. The patie nt is having significant amount of pain due to his rib fracture. Continues to be on BiPAP and was sw itched to face mask earlier this morning. Medications: List reviewed. Code Status: Full. Physical Examination: Vital Signs: Temperature 99.8, heart rate 90, blood pressure 124/75, respirations 24, and O2 of 88% on 4 L via nasal cannula. General: Awake, alert, and oriented x3, in some mild distress due to pain, ill-appearing male. CV: S1 and S2. Regular rate and rhythm. Peripheral pulses present. Respiratory: Diminished breath sounds. No wheezing or stridor. Gastrointestinal: Abdomen is soft, nontender, and nondistended. Positive bowel sounds. Extremities: No clubbing, cyanosis, or edema. Neurological: The patient has right-sided paralysis. Laboratory Data: Sodium 136, potassium 3.8, chloride 100, CO2 of 29, BUN 20, creatinine 0.97, glucos e 131, lactate 1.8, calcium 8.8, procalcitonin 0.13. WBC 16.5, H and H are 13.1 and 38.4, platelets 248, neutrophils 88%. Blood cultures pending. CT chest angio shows no evidence of PE, airspace cons olidation in both lung bases posteriorly, likely represent aspiration or pneumonia. Acute fracture o f the right posterior sixth rib. Chest x-ray shows underinflated lungs. Assessment And Plan: A 67-year-old male with, 1.Acute sixth rib fracture on the right, subsequent encounter for fracture. We will adjust pain med ications. We will place lidocaine patch. 2.Acute respiratory failure with hypoxia, on BiPAP, we will wean as tolerated. Continue incentive s pirometry. 3.Bilateral lower lobe pneumonia. We will add Levaquin secondary to atelectasis and the patient not taking deep breaths due to rib fracture and pain. 4.History of cerebrovascular accident with right-sided residual weakness. 5.Essential hypertension, stable. We will resume home medications. 6.Gastrointestinal and deep venous thrombosis prophylaxis, addressed with PPI and Lovenox. Plan: Change to inpatient, likely discharge in the next 24 to 48 hours depending on clinical respons e and pain control. We will obtain blood cultures and sputum cultures. SA/MODL Voice ID: [id number] Report ID: [id number]
[2018-08-04] MEDS: TRAMADOL HCL 50 MG TAB PO PRN ×3 (04:22→21:53)
[2018-08-04 05:21] LABS: Absolute Lymphocytes (CBC) 1.4 K/uL (0.7-4.9); Absolute Monocytes 0.9 K/uL (0.1-1.3); Absolute Neutrophil 9.7 K/uL (1.8-8.0); Basophils % 0.4 % (0-1.3); Eosinophils % 1.3 % (0-4.4); Hematocrit 38.4 % (39.6-49.0); Lymphocytes % 11.2 % (15.3-44.8); MPV 8.1 fL (7.6-11.3); Monocytes % 7.2 % (3.3-12.3); RBC Red Blood Cell Count 4.37 M/uL (4.33-5.43)
[2018-08-04 05:37] LABS: Albumin 3.5 g/dL (3.4-5.0); Bilirubin Total 0.9 mg/dL (0.2-1.0); Potassium 3.7 mmol/L (3.5-5.1); Protein, Total 7.8 g/dL (6.4-8.2)
[2018-08-04] MEDS: ENOXAPARIN 40 MG/0.4 ML SQ SCH (09:41)
[2018-08-04] MEDS: ASPIRIN EC 81 MG TAB PO SCH (09:42)
[2018-08-04] MEDS: RAMIPRIL 5 MG CAP PO SCH ×2 (09:42→21:52)
[2018-08-04] MEDS: ESCITALOPRAM 20 MG TAB PO SCH (09:42)
[2018-08-04] MEDS: MECLIZINE HCL 12.5 MG TAB PO SCH ×2 (09:43→21:52)
[2018-08-04] MEDS: hydroCHLOROthiazide 12.5 MG CAP PO SCH (09:43)
[2018-08-04] MEDS: AMLODIPINE 5 MG TAB PO SCH ×2 (09:43→21:52)
[2018-08-04] MEDS: LIDOCAINE 5% PATCH TOP SCH (09:53)
[2018-08-04] MEDS: Levofloxacin 750mg IV 750 MG/150 ML BAG IV SCH (12:42)
[2018-08-04] MEDS: ATORVASTATIN 10 MG TAB PO SCH (21:52)
--- NOTE | 2018-08-04 22:29 | PN ---
Date of Progress Note: 08/04/2018 History: The patient was seen and examined. Chart reviewed and case discussed with RN. The patient is doing better. Now on supplemental oxygen via nasal cannula, off the mask. Daughter at the bedside. Treatment plan explained. All questions answered. The patient is cooperating with use of incentive spirometry. The patient is not very mobile. Medications: List reviewed. Physical Examination: Vital Signs: Temperature 98.3, heart rate 88, blood pressure 131/82, respirations 20, O2 95% on 4 L via nasal cannula. General: Awake, alert, oriented x3, in some pain due to rib fracture, ill- appearing, older than stated age male. CV: S1, S2. Regular rate and rhythm. Peripheral pulses present. Respiratory: Diminished breath sounds at the bases, left worse than right. Gastrointestinal: Abdomen is soft, nontender, and nondistended. Positive bowel sounds. Extremities: No clubbing, cyanosis, or edema. Musculoskeletal: Tenderness to palpation in the right sixth rib. Neurologic: Nonfocal. The patient has paralysis of the right side, upper and lower extremity. Skin: No rashes. Normal skin turgor. Laboratory Data: Sodium 136, potassium 3.7, chloride 99, CO2 29, BUN 17, creatinine 1, glucose 93, calcium 9.2, albumin 3.5. WBC 12.2, H and H 12.9, 38.4, platelets 265, neutrophils 79%. Assessment And Plan: A 67-year-old male with: 1. Sixth rib fracture on the right, subsequent encounter. Continue with pain control. Continue incentive spirometry, improving. 2. Acute respiratory failure with hypoxia, now weaned off facemask on 4 L of oxygen. We will continue incentive spirometry. 3. Bilateral lower lobe pneumonia. Continue IV antibiotics. Follow up on cultures, improving. 4. History of cerebrovascular accident with right-sided weakness. 5. Essential hypertension, stable. 6. Gastrointestinal and deep venous thrombosis prophylaxis with PPI and Lovenox. Plan: Repeat chest x-ray in a.m. Likely discharge in the next 24 to 48 hours, once off oxygen. /SEBASTIAN Voice ID: [id number] Report ID: [id number]
[2018-08-05] MEDS: MORPHINE 4 MG/ML SYR IV PRN ×3 (04:04→19:36)
[2018-08-05 05:15] LABS: Absolute Lymphocytes (CBC) 1.2 K/uL (0.7-4.9); Absolute Monocytes 0.9 K/uL (0.1-1.3); Absolute Neutrophil 7.1 K/uL (1.8-8.0); Basophils % 0.6 % (0-1.3); Hematocrit 39.6 % (39.6-49.0); Lymphocytes % 12.5 % (15.3-44.8); MPV 7.8 fL (7.6-11.3); Monocytes % 9.8 % (3.3-12.3); RBC Red Blood Cell Count 4.58 M/uL (4.33-5.43)
[2018-08-05 05:54] LABS: Albumin 3.4 g/dL (3.4-5.0); Bilirubin Total 0.7 mg/dL (0.2-1.0); Potassium 3.7 mmol/L (3.5-5.1); Protein, Total 7.8 g/dL (6.4-8.2)
[2018-08-05] MEDS: LIDOCAINE 5% PATCH TOP SCH ×2 (09:00→21:40)
[2018-08-05] MEDS: ENOXAPARIN 40 MG/0.4 ML SQ SCH (10:25)
[2018-08-05] MEDS: RAMIPRIL 5 MG CAP PO SCH ×2 (10:26→21:41)
[2018-08-05] MEDS: hydroCHLOROthiazide 12.5 MG CAP PO SCH (10:27)
[2018-08-05] MEDS: ESCITALOPRAM 20 MG TAB PO SCH (10:27)
[2018-08-05] MEDS: MECLIZINE HCL 12.5 MG TAB PO SCH ×2 (10:27→21:41)
[2018-08-05] MEDS: AMLODIPINE 5 MG TAB PO SCH ×2 (10:27→21:40)
[2018-08-05] MEDS: ASPIRIN EC 81 MG TAB PO SCH (10:28)
[2018-08-05] MEDS: Levofloxacin 750mg IV 750 MG/150 ML BAG IV SCH (11:22)
--- NOTE | 2018-08-05 12:50 | RAD REPORT ---
EXAM DESCRIPTION: RAD - Chest Single View - 08/05/2018 6:53 am CLINICAL HISTORY: PNA, Chest pain. COMPARISON: Chest Single View dated 08/02/2018; Chest Single View dated 07/30/2018; Chest Single Vie w dated 01/11/2018; CHEST PA AND LAT 2 VIEW dated 12/28/2010; Chest For Pe Angio dated 08/02/2018 FINDINGS: Portable technique limits examination quality. Mild improvement in bibasilar lung aeration is seen since 08/02/2018. The heart is mildly enlarged in size. No displaced fractures.Sternotomy wires present. IMPRESSION: Mild improvement in bibasilar lung aeration since comparative study.
--- NOTE | 2018-08-05 13:55 | PN ---
Date of Progress Note: 08/05/2018 Subjective: The patient is seen and examined. Chart reviewed, and case discussed with RN. The omkar ent still reporting significant amount of pain, has been working with Physical Therapy just to get ou t of bed into the chair. The patient does have right-sided paralysis. Medications: List reviewed. Physical Examination: Vital Signs: Temperature 99.2, heart rate 92, blood pressure 141/92, respirations 20, O2 of 96% on 4 L via nasal cannula. General: An awake, alert, oriented x3, elderly male, ill appearing, in some mild distress due to naye n. CV: S1, S2. Regular rate and rhythm. Peripheral pulses present. Respiratory: Diminished breath sounds at the bases, otherwise moving air well at the apices. No whe ezing. Gastrointestinal: Abdomen is soft, nontender, nondistended. Positive bowel sounds. No guarding or rigidity. Musculoskeletal: Tenderness to palpation on the right sixth rib. Extremities: No clubbing, cyanosis, or edema. Neuro: Right-sided paralysis. Laboratory Data: Sodium 134, potassium 3.7, chloride 98, CO2 of 27, BUN 19, creatinine 1.03, glucose 102, calcium 9.2. WBC 9.5, H and H 13.7 and 39.6, platelets 321, neutrophils 75%. Blood cultures, no growth to date. Chest x-ray shows mild improvement in bibasilar lung aeration since comparative s tudy wound. Assessment And Plan: A 67-year-old male with: 1.Rib fracture on the right sixth rib, subsequent encounter. We will adjust pain medications. Cont inue with incentive spirometry. Out of bed to chair. Continue mobilizing the patient. Continue PT. 2.Acute respiratory failure with hypoxia, still requiring 4 L of oxygen via nasal cannula. Continue to wean as tolerated secondary to above. 3.Bilateral lower lobe pneumonia. Chest x-ray, personally reviewed, shows improvement. We will con tinue antibiotics. Cultures are negative. 4.History of cerebrovascular accident with right-sided weakness. 5.Essential hypertension, stable. 6.Gastrointestinal and deep vein thrombosis prophylaxis with PPI and Lovenox. Unfortunately, the patient has not improved significantly and slow to progress, may benefit from [facility] due to recurrent falls, resulting in rib fracture. The patient does h ave paralysis on the right side. We will continue with PT and refer [facility]. /SEBASTIAN Voice ID: [id number] Report ID: [id number]
[2018-08-05] MEDS: ALBUTEROL 2.5 MG/3 ML NEB SOL NEB PRN (14:25)
[2018-08-05] MEDS: IPRATROPIUM BROM 0.5MG/2.5ML NEB PRN (14:25)
[2018-08-05] MEDS: TRAMADOL HCL 50 MG TAB PO PRN (17:37)
[2018-08-05] MEDS: ATORVASTATIN 10 MG TAB PO SCH (21:41)
[2018-08-05] MEDS: ACETAMINOPHEN 500 MG TAB PO PRN (21:42)
[2018-08-06 04:53] LABS: Urine Appearance CLEAR; Urine Bilirubin NEGATIVE (NEG); Urine Blood TRACE (NEG); Urine Color YELLOW; Urine Glucose NEGATIVE (NEG); Urine Protein NEGATIVE (NEG); Urine Specific Gravity 1.025 (1.005-1.030); Urine pH 5.5 (5.0-7.0)
[2018-08-06 04:55] LABS: Absolute Lymphocytes (CBC) 1.7 K/uL (0.7-4.9); Absolute Monocytes 1.2 K/uL (0.1-1.3); Absolute Neutrophil 6.5 K/uL (1.8-8.0); Basophils % 0.6 % (0-1.3); Eosinophils % 1.9 % (0-4.4); Hematocrit 39.6 % (39.6-49.0); Lymphocytes % 17.7 % (15.3-44.8); MPV 7.4 fL (7.6-11.3); Monocytes % 12.1 % (3.3-12.3); RBC Red Blood Cell Count 4.58 M/uL (4.33-5.43)
[2018-08-06 05:12] LABS: Urine Bacteria <20 /HPF (NONE SEEN); Urine Culture Reflex Order NOT NEEDED; Urine RBC <5 /HPF (NONE SEEN)
[2018-08-06 05:13] LABS: Albumin 3.4 g/dL (3.4-5.0); Bilirubin Total 0.8 mg/dL (0.2-1.0); Potassium 3.7 mmol/L (3.5-5.1); Protein, Total 7.7 g/dL (6.4-8.2)
[2018-08-06] MEDS: ENOXAPARIN 40 MG/0.4 ML SQ SCH (09:24)
[2018-08-06] MEDS: hydroCHLOROthiazide 12.5 MG CAP PO SCH (09:25)
[2018-08-06] MEDS: RAMIPRIL 5 MG CAP PO SCH ×2 (09:25→21:11)
[2018-08-06] MEDS: ASPIRIN EC 81 MG TAB PO SCH (09:25)
[2018-08-06] MEDS: AMLODIPINE 5 MG TAB PO SCH ×2 (09:26→21:12)
[2018-08-06] MEDS: ESCITALOPRAM 20 MG TAB PO SCH (09:26)
[2018-08-06] MEDS: MECLIZINE HCL 12.5 MG TAB PO SCH ×2 (09:26→21:11)
[2018-08-06] MEDS: TRAMADOL HCL 50 MG TAB PO PRN ×3 (10:11→22:08)
[2018-08-06] MEDS: Levofloxacin 750mg IV 750 MG/150 ML BAG IV SCH (12:45)
--- NOTE | 2018-08-06 15:45 | RAD REPORT ---
EXAM DESCRIPTION: RAD - Chest Single View - 08/06/2018 3:05 pm CLINICAL HISTORY: Audible crackles, suspected pneumonia, shortness of breath COMPARISON: August 05 chest film, August 02 chest exam TECHNIQUE: AP portable chest image was obtained 1441 hours . FINDINGS: Lung love remain underinflated. Both lung bases are limited in assessment. CT imaging sh owed bilateral lung base consolidation. Findings have probably improved but not resolved. Heart and v asculature are normal. No measurable pleural effusion and no pneumothorax. No acute bony abnormality seen. No acute aortic findings suspected. IMPRESSION: Bilateral lung base opacification remains. Findings are improved but not fully resolved.
--- NOTE | 2018-08-06 16:00 | RAD REPORT ---
EXAM DESCRIPTION: RAD - Barium Swallow Modified - 08/06/2018 3:05 pm CLINICAL HISTORY: Aspiration COMPARISON: None. TECHNIQUE: The patient was given liquid, semi-solid and solid forms of barium. Lateral view fluorosc opic imaging was performed in conjunction with speech pathology service. FINDINGS: There were 16 cine loop acquisitions obtained with a 2 minutes 48 seconds fluoro time. Residual contrast seen in the valleculae and piriform sinuses cleared with subsequent swallowing. No notation of aspiration or laryngeal penetration. IMPRESSION: No aspiration observed. Findings are fully detailed in speech pathology report.
--- NOTE | 2018-08-06 16:49 | PN ---
Date of Progress Note: 08/06/2018 Subjective: The patient is seen and examined. Chart reviewed and case discussed with RN. The patient is still on 4 L of oxygen laterally, ambulating well with PT. We will likely need [facility] facility placement. Medications: List reviewed. Physical Examination: Vital Signs: Temperature 98.2, heart rate 90, blood pressure 143/79, respirations 24, O2 96% on 4 L via nasal cannula. General: Awake, alert, oriented x3. Elderly male, ill-appearing. CV: S1, S2. Peripheral pulses present. Respiratory: Diminished breath sounds at the bases. Some crackles heard. Gastrointestinal: Abdomen is soft, nontender, nondistended. Positive bowel sounds. Extremities: No clubbing, cyanosis, or edema. Musculoskeletal: The right sixth rib in tenderness to palpation. Neuro: Right hemipareses. Laboratory Data: Sodium 134, potassium 3.7, chloride 95, CO2 29, BUN 24, creatinine 1.21, glucose 94, calcium 9.3, albumin 3.4. WBC 9.6, H and H 14 and 39.6, platelets 315, neutrophils 67%. Cultures, no growth to date. Chest x- ray shows mild improvement in bibasilar lung aeration comparative study. Assessment And Plan: A 67-year-old male with: 1. Rib fracture on the right sixth rib subsequent encounter. We will continue pain medications. Encourage incentive spirometry. Continue PT. Mobilize the patient and get him out of the bed onto the chair. 2. Acute respiratory failure with hypoxia. The patient is on 4 L via nasal cannula. Attempt to wean down as tolerated secondary to pneumonia. 3. Bilateral lower lobe pneumonia. Chest x-ray shows improvement. Continue antibiotics for now. Cultures, no growth to date. 4. History of cerebrovascular accident with right hemiparesis. 5. Essential hypertension. 6. Gastrointestinal and deep vein thrombosis prophylaxis with proton pump inhibitor and Lovenox. 7. Plan, refer to [facility] facility. The patient follows with Dr. Stewart , transfer service on August 08, 2017, once he is back in town. /SEBASTIAN Voice ID: [id number] Report ID: [id number] [id number]
[2018-08-06] MEDS: ATORVASTATIN 10 MG TAB PO SCH (21:11)
[2018-08-06] MEDS: LIDOCAINE 5% PATCH TOP SCH (21:11)
[2018-08-07] MEDS: hydroCHLOROthiazide 12.5 MG CAP PO SCH (09:04)
[2018-08-07] MEDS: ENOXAPARIN 40 MG/0.4 ML SQ SCH (09:04)
[2018-08-07] MEDS: ESCITALOPRAM 20 MG TAB PO SCH (09:05)
[2018-08-07] MEDS: MECLIZINE HCL 12.5 MG TAB PO SCH ×2 (09:05→20:57)
[2018-08-07] MEDS: ASPIRIN EC 81 MG TAB PO SCH (09:05)
[2018-08-07] MEDS: RAMIPRIL 5 MG CAP PO SCH ×2 (09:05→20:57)
[2018-08-07] MEDS: AMLODIPINE 5 MG TAB PO SCH ×2 (09:05→20:58)
[2018-08-07] MEDS: TRAMADOL HCL 50 MG TAB PO PRN ×2 (09:13→22:55)
[2018-08-07] MEDS: MORPHINE 4 MG/ML SYR IV PRN ×3 (11:42→20:58)
[2018-08-07] MEDS: Levofloxacin 750mg IV 750 MG/150 ML BAG IV SCH (12:12)
--- NOTE | 2018-08-07 17:40 | P.PN ---
Subjective Date of Service: 08/07/18 Primary Care Provider: Dr. Stewart Chief Complaint: acute respiratory failure Subjective: No new changes, No C/O voiced, Improving Patient seen and examined at bedside. No family at bedside. Chart reviewed and case discussed with nursing staff. Review of Systems 10-point ROS is otherwise unremarkable Physical Examination - Vital Signs Temperature: 98.0 F Blood Pressure: 132/77 Pulse: 87 Respirations: 24 Pulse Ox (%): 95 - Physical Exam General: Alert, In no apparent distress, Oriented x3, Other (Ill-appearing) HEENT: Atraumatic, PERRLA, EOMI Neck: Supple, JVD not distended Respiratory: Diminished, Crackles/rales Cardiovascular: Regular rate/rhythm, Normal S1 S2 Gastrointestinal: Normal bowel sounds, No tenderness Musculoskeletal: No tenderness Integumentary: No rashes Neurological: Normal speech, Normal tone, Normal affect Lymphatics: No axilla or inguinal lymphadenopathy Assessment And Plan - Plan A 67-year-old male with: 1. Rib fracture on the right sixth rib subsequent encounter. We will continue pain medications. Encourage incentive spirometry. Continue PT. Mobilize the patient and get him out of the bed onto the chair. 2. Acute respiratory failure with hypoxia. The patient is on 4 L via nasal cannula. Attempt to wean down as tolerated secondary to pneumonia. 3. Bilateral lower lobe pneumonia. Chest x-ray shows improvement. Continue antibiotics for now. Cultures, no growth to date. 4. History of cerebrovascular accident with right hemiparesis. 5. Essential hypertension. 6. Gastrointestinal and deep vein thrombosis prophylaxis with proton pump inhibitor and Lovenox. 7. Plan, refer to care home facility vs Rehab. The patient follows with Dr. Stewart, transfer service on August 08, 2017, once he is back in [facility].
[2018-08-07] MEDS: ATORVASTATIN 10 MG TAB PO SCH (20:58)
[2018-08-07] MEDS: DOCUSATE NA 100 MG CAP PO SCH (20:58)
[2018-08-07] MEDS: LIDOCAINE 5% PATCH TOP SCH (21:04)
[2018-08-08] MEDS: MORPHINE 4 MG/ML SYR IV PRN ×2 (04:30→10:57)
[2018-08-08] MEDS: TRAMADOL HCL 50 MG TAB PO PRN (06:33)
[2018-08-08] MEDS ORDERED: MAGNESIUM HYDROXIDE 8% 30 ML PO ONE (08:00)
[2018-08-08] MEDS: TRAMADOL HCL 50 MG TAB PO SCH ×2 (09:00→14:30)
[2018-08-08] MEDS: ENOXAPARIN 40 MG/0.4 ML SQ SCH (10:59)
[2018-08-08] MEDS: ESCITALOPRAM 20 MG TAB PO SCH (10:59)
[2018-08-08] MEDS: MECLIZINE HCL 12.5 MG TAB PO SCH (11:00)
[2018-08-08] MEDS: hydroCHLOROthiazide 12.5 MG CAP PO SCH (11:01)
[2018-08-08] MEDS: AMLODIPINE 5 MG TAB PO SCH (11:01)
[2018-08-08] MEDS: RAMIPRIL 5 MG CAP PO SCH (11:02)
[2018-08-08] MEDS: ASPIRIN EC 81 MG TAB PO SCH (11:02)
[2018-08-08] MEDS: DOCUSATE NA 100 MG CAP PO SCH (11:02)
[2018-08-08] MEDS: Levofloxacin 750mg IV 750 MG/150 ML BAG IV SCH (12:00)
[2018-08-08 12:09] VITALS: BP 141/79; TEMP 98.1
[2018-08-08] MEDS: ACETAMINOPHEN 500 MG TAB PO PRN (14:11)
[2018-08-08] MEDS ORDERED: GUAIFENESIN/DM 5 ML UCUP PO PRN (15:47)
[2018-08-08 16:44] VITALS: O2SAT 95
--- NOTE | 2018-08-09 03:35 | DS ---
Date of Discharge: 08/08/2018 Disposition: Discharged to go to rehab. Physical Examination: HEENT: Unremarkable. Lungs: Bilateral good and equal air entry with presence of rales in the right lower lung field. Heart: Sounds normal. Abdomen: Soft. Bowel sounds normal. No guarding, rigidity, tenderness, or distention. Extremities: No leg edema. Hospital Course: This is a 67-year-old male patient who came into the emergency room. He actually h ad a fall and he was admitted to the hospital for couple of days with refracture, who went home and t he following day, he started to have difficulty breathing, so he was brought back to the emergency ro om. Evaluation revealed presence of pneumonia and he was admitted to the hospital. His condition ov erall has improved during this hospitalization. His initial white count was 12, hemoglobin 13.2, bebo telets 260. Last white count on August 06 was 9.6, hemoglobin 14, platelets 350. Last chemistry o n August 06, sodium 134, potassium 3.7, chloride 95, bicarb 29, BUN 24, creatinine 1.21, glucose 94 . Liver function tests normal. Blood culture remained negative. Sputum culture negative. His last chest x-ray from August 06, 2018, showed bilateral lung base opacification. Findings improved, bu t not fully resolved compared to previous x-ray and modified barium swallow from 08/06/2018 showed no evidence of aspiration. CAT scan of the chest per PE protocol done in the emergency room shows no e vidence of pulmonary embolism, presence of acute fracture right posterior 6th rib, and air space cons olidation in both lung bases. Rehab was consulted and today Rehab accepted the patient. The patient was transferred to rehab floor in stable condition with instruction to nursing staff to continue all his current medications and orders. Final Diagnoses: 1.Pneumonia. 2.Hypertension. 3.Paroxysmal atrial fibrillation. 4.Stroke. 5.Bioprosthetic aortic valve. 6.Hypertension. 7.Hyperlipidemia. 8.Prostate cancer. 9.Impaired fasting glucose. 10.Gastroesophageal reflux disease. 11.Depression. 12.Hypothyroidism. Discharge Medication: See copy of transfer orders and the patient to continue all current medication s and orders on the rehab floor. DAWNA/MODL Voice ID: [id number] Report ID: [id number]
== END 2018-08-08 16:17 | DRG 193 ==
LOC: ER 18:20 → ERHOLD 22:19 → 4TH 23:18 → OBSVTOIN 08-03 10:16
PROVIDERS: ADMIT Internal Medicine; ATTEND Internal Medicine
PROC: 5A09457 Assistance with Respiratory Ventilation, 24-96 Consecutive Hours, Continuous Positive Airway Pressure (ICD-10-PCS; principal; 2018-08-03)
DX: J18.9 Pneumonia, unspecified organism (principal); J96.01 Acute respiratory failure with hypoxia; I69.351 Hemiplegia and hemiparesis following cerebral infarction affecting right dominant side; I48.0 Paroxysmal atrial fibrillation; Z79.01 Long term (current) use of anticoagulants; Z95.2 Presence of prosthetic heart valve; E78.5 Hyperlipidemia, unspecified; K21.9 Gastro-esophageal reflux disease without esophagitis; F32.9 Major depressive disorder, single episode, unspecified; I10 Essential (primary) hypertension; E03.9 Hypothyroidism, unspecified; Z88.2 Allergy status to sulfonamides; I25.10 Atherosclerotic heart disease of native coronary artery without angina pectoris; Z95.1 Presence of aortocoronary bypass graft; S22.41XD Multiple fractures of ribs, right side, subsequent encounter for fracture with routine healing; W19.XXXD Unspecified fall, subsequent encounter; Z91.81 History of falling; Z85.46 Personal history of malignant neoplasm of prostate
CPT/HCPCS: 36415; 70450; 71045; 71250; 71275; 72125; 74230; 80048; 80053; 80076; 81001; 82550; 82553; 82805; 83605; 83690; 83735; 83880; 84145; 84484; 85025; 85379; 85610; 85730; 87040; 87070; 87205; 92526; 92610; 92611; 93005; 94640; 94660; 94760; 96374; 97112; 97116; 97163; 97530; 99285; G0378; J0696; J1650; J2405; J3010; Q9967

== ENCOUNTER 2018-08-08 11:54 | Inpatient (IN) | payer OTHER, BC ==
--- NOTE | 2018-08-08 14:07 | R.PREADM ---
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 ACUTE CURRICULUM COORDINATOR/DC BIOMETRIC TECHNICIAN Jenni Dupree REFERRING PHYSICIAN Parker Camacho REHAB FACILITY [facility] CLINICAL LIAISON Manuel Quinn PHYSICIAN REVIEWER Dr. Daniel Mane M.D. MR# [id number] NAME ELSIE MENDOZA AD[address]ESS [address] [facility] [id number] DATE OF 1950 AGE 67 SSN# [id number] GENDER male MARITAL STATUS RACE white ADMIT FROM 02 - [facility] PRE-HOSPITAL LIVING SETTING 01 - Home (private home/apt. board/care, assisted living, skilled nursing, transitional living) HOME TYPE AND DETAILS Type of home: single family house # of levels in the residence: 1 # of steps within the residence: 0 # of steps to enter the residence: 0 PRE-HOSPITAL LIVING WITH Family/Relatives FAMILY SUPPORT Yes PRIMARY FAMILY CONTACT NAME Angelique Henry PRIMARY FAMILY CONTACT PHONE PHONE PRIMARY FAMILY CONTACT ON ADM.? no IS PRIMARY FAMILY CONTACT AUTH. REP.? no 1ST EMERGENCY CONTACT Angelique Henry 1ST CONTACT PHONE PHONE 1ST CONTACT ON ADM. no IS 1ST CONTACT AUTH. REP.? no PHONE 2ND CONTACT ON ADM.? no PATIENT EMPLOYMENT STATUS Retired (for age) PATIENT EMPLOYER No Employer PAYOR INFORMATION: 1ST PAYOR NAME MEDICARE 1ST PAYOR PHONE [phone] 1ST PAYOR INJURY/ILLNESS DUE TO ACCIDENT? No ANOTHER REPUBLICAN RESPONSIBLE? No PRIMARY REHAB/ACUTE DIAGNOSIS: RIGHT 6TH RIB FRCATURE ONSET DATE 08/03/2018 REHAB IMPAIRMENT CATEGORY (TRAN): 20 Miscellaneous (Misc) does NOT meet 60% rule PRIMARY DIAGNOSIS-RELATED SURGERIES: N/A COMORBID REHAB/ACUTE DIAGNOSES: - N/A CAD Hypertension CVA HYPERLIPIDEMIA PROSTATE CANCER DVT LLE AND MATY OBSTRUCTIVE SLEEP APNEA ATRIAL FIBRILLATION HYPOTHYROIDISM INTERVENTIONS: - CAD 02 sats Activity management Medications VS - Hypertension Fluid management Medications VS - Atrial Fibrillation Anticoagulation Medications VS RISK FOR COMPLICATIONS: - CAD CHF Cardiac Arrest PA Pain - Hypertension CVA Hypotension PA TIA - Atrial Fibrillation CVA Heart failure Limb embolus SUMMARY OF ACUTE HOSPITALIZATION: Pt. is a 67 yo Right-handed white male. On 08/03/2018 he was admitted to [facility] with diagnosis RIGHT 6TH RIB FRCATU RE. His impairment category is Debility 16 - Debility (16). Pre-morbidly, Pt. was independent/mod-I in Sphincter Control, Transfers Control, Communication, Socia l Cognition, Self-Care, and Locomotion; and he had good Sphincter Control. Currently, he has deficits of Safety Awareness, Transfers Control, Balance, Self-Care, Locomotion, an d Endurance. Pt. is now referred to [facility] for acute in-patient rehabilitation in order to maximize patient's functional independence in activities of daily living, strength, ROM, and mobi lity. Patient has realistic goal of being discharged at assistance level 6-Henny to reside at Home with Fam liana/Relatives. Elsie Mendoza is a 67 year old male that lives in a single [facility] home with his son. Patient requires assistance from his son on ADLs from his previous stroke. On 08/03/2018, he had SOB and was admitted to [facility] and treated. He is now medically stable but in need of 24-hour nursing, doctor supervision and oversite participate in 3hours of therapy a day/15 hours per week and receive care with an intensive interdisciplinary approach. PAST MEDICAL HISTORY ATRIAL FIBRILLATION CAD CVA DVT LLE AND MATY HYPERLIPIDEMIA HYPOTHYROIDISM Hypertension OBSTRUCTIVE SLEEP APNEA PROSTATE CANCER PAST SURGICAL HISTORY: CABG TRACHEOSTOMY PEG CAROTID ENDODARTERECTOMY AORTIC VALVE REPLACEMENT INGUINAL/UMBILICAL HERNIA REPAIR MEDICATION ALLERGIES: Sulfa ENVIRONMENTAL ALLERGIES: None Known - Substance Allergies None Known - Other Allergies None Known CODE STATUS: Full code WEIGHT/HEIGHT/BMI: WEIGHT 177 lbs HEIGHT 5' 8" BMI 26.9 DIET: - Diet Type Heart Healthy - Diet - Solid Texture Regular - Diet - Liquid Texture Regular - Tube Feed N/A REVIEW OF SYSTEMS: - Gen Alert and awake Lying in bed No apparent distress Oriented to: person, time, and place - Vital Signs Temperature: 98.1 F SBP/DBP: 141/79 Pulse: 85 Resp: 20 Vital signs stable, afebrile - CVS RRR VITAL SIGNS Temperature: 98.1 F SBP/DBP: 141/79 Pulse: 85 Resp: 20 Vital signs stable, afebrile CURRENT SPHINCTER CONTROL: Pre-hospital bladder status: continent # of bladder accidents in the last 7 days prior to screenin Pre-hospital bowel status: continent # of bowel accidents in the last 7 days prior to screenin Last Bowel Movement Date: DETAILED CURRENT FUNCTIONAL STATUS: - Bladder accident frequency: Ind - No accidents in the past 7 days - Bowel accident frequency: Ind - No accidents in the past 7 days - Walking score based on distance walked: 1(<=50ft) - Wheelchair score based on distance traveled: 0(N/A) FUNCTIONAL STATUS: - Self-Care A. Eating Ind sup B. Grooming Ind Henny C. Bathing Ind Ruddy D. Dressing - Upper Ind Ruddy E. Dressing - Lower Ind Ruddy F. Toileting Ind modA - Sphincter Control G: Bladder control Ind Ind H: Bowel control Ind Ind - Transfers Control I. Bed/Chair/Wheelchair Ind maxA J. Toilet Ind maxA K. Tub/Shower Ind ADNO - Locomotion L. Walk/Wheelchair (C) Ind modA L. Walk/Wheelchair (W) Ind modA M. Stairs Ind ADNO - Communication N. Comprehension (B) Ind Ind O. Expression (B) Ind Ind - Social Cognition P. Social Interaction Ind Ind Q. Problem Solving Ind Ind R. Memory Ind Ind - Endurance Fair - Balance Fair - Safety Awareness Fair CURRENT FUNC. DEFICITS: Safety Awareness, Transfers Control, Balance, Self-Care, Locomotion, and Endurance THERAPY NOTES FROM ACUTE CARE: Attached. SPECIAL NEEDS: - Safety Concerns Skin breakdown precautions needed due to skin breakdown risk PATIENT NEEDS ACTIVE AND ONGOING THERAPEUTIC INTERVENTION OF MULTIPLE THERAPY DISCIPLINES, INCLUDING: - Occupational Therapy Evaluate and Treat. - Physical Therapy Evaluate and Treat. PATIENT NEEDS CLOSE MEDICAL SUPERVISION BY A REHABILITATION PHYSICIAN FOR: Bowel and Bladder Management Coordination of Treatment Team DVT Management Medical and Co-Morbidity Management Pain Management PATIENT REQUIRES 24X7 REHAB NURSING FOR MEDICAL AND FUNCTIONAL MGT. OF THE FOLLOWING DEFICITS: ADL's Ambulation Bowel and Bladder Management Cognition Communication Disease Management Medication Management Patient/Family Education Providing Safe Environment Transfers Pain Management PATIENT REQUIRES INTENSIVE, COORDINATED INTERDISCIPLINARY APPROACH TO REHAB: Arranging Home Equipment/Services Discharge Planning Family Intervention/Training Small Piece Cutter/Case Management PATIENT REHAB POTENTIAL: Expected level of measurable improvement will be of a practical value to patient's functional capacit y or adaptations to impairments Has a viable Discharge Plan Medically appropriate; condition is sufficiently stable to participate in intensive rehab program Patient is able and expected to receive 3 hours of individualized therapy daily on at least 5 of ever y 7 days Patient's prognosis for significant practical improvement within a reasonable period of time appears Good DISCHARGE PLAN: - Estimated Length of Stay (days) 13. - Consensus on plan Discharge plan has been discussed with primary caregiver. Patient/Family is in agreement with the bebo n. Primary caregiver is in agreement with the plan. - Patient/Family Goals Return home with assistance. - Planned Living Setting Upon Discharge Home, to live with Family/Relatives. RECOMMENDED CARE LEVEL: IRF RECOMMENDATION DETAILS: Recommended Admission to Comprehensive Rehabilitation Program to Increase Functional [place] SCREENER'S COMPLETENESS CONFIRMATION: - Screening Confirmation The patient data collection on this preadmission screening form is finished PHYSICIANS REVIEW AND ADMISSION DETERMINATION Admit - Based on my review of the Pre-Admission Screening results, in my medical judgment and experie nce, I concur with the findings and recommend admission to [facility], as this patient requires an IRF level of care. SIGNATURE PANEL: Clinical Liaison - [electronically] signed by Manuel Quinn on 08/08/2018 at 12:46 (FLOOR WORKER [employer]SFER [employer]) Physician Reviewer - [electronically] signed by Dr. Daniel Mane M.D. on 08/08/2018 at 14:06 (FLOOR WORKER [employer]SFER BAY )
[2018-08-08] MEDS: TRAMADOL HCL 50 MG TAB PO PRN (17:37)
[2018-08-08] MEDS ORDERED: ACETAMINOPHEN 500 MG TAB PO PRN (17:39)
[2018-08-08] MEDS ORDERED: ONDANSETRON 4 MG/2 ML VIAL IV PRN (17:39)
[2018-08-08] MEDS ORDERED: ALBUTEROL 2.5 MG/3 ML NEB SOL NEB PRN (17:39)
[2018-08-08] MEDS ORDERED: DOCUSATE NA/SENNA CONC 1 TAB PO PRN (17:50)
[2018-08-08] MEDS: AMLODIPINE 5 MG TAB PO SCH (20:22)
[2018-08-08] MEDS: GABAPENTIN 300 MG CAP PO SCH (20:22)
[2018-08-08] MEDS: DOCUSATE NA 100 MG CAP PO SCH (20:22)
[2018-08-08] MEDS: MECLIZINE HCL 12.5 MG TAB PO SCH (20:22)
[2018-08-08] MEDS: ATORVASTATIN 10 MG TAB PO SCH (20:22)
[2018-08-08] MEDS: HYDROCODONE/APAP 5/325 MG TAB PO PRN (20:23)
[2018-08-08] MEDS: RAMIPRIL 5 MG CAP PO SCH (20:23)
[2018-08-08] MEDS ORDERED: ENOXAPARIN 40 MG/0.4 ML SQ SCH (21:00)
[2018-08-09] MEDS: HYDROCODONE/APAP 5/325 MG TAB PO PRN ×4 (00:30→19:49)
[2018-08-09 06:52] LABS: Absolute Lymphocytes (CBC) 1.7 K/uL (0.7-4.9); Absolute Monocytes 0.8 K/uL (0.1-1.3); Absolute Neutrophil 6.1 K/uL (1.8-8.0); Basophils % 0.6 % (0-1.3); Eosinophils % 2.4 % (0-4.4); Hematocrit 37.3 % (39.6-49.0); Lymphocytes % 19.4 % (15.3-44.8); MPV 7.4 fL (7.6-11.3); Monocytes % 8.7 % (3.3-12.3); RBC Red Blood Cell Count 4.35 M/uL (4.33-5.43)
[2018-08-09 07:54] LABS: Potassium 3.8 mmol/L (3.5-5.1)
[2018-08-09 07:56] LABS: Albumin 3.2 g/dL (3.4-5.0); Magnesium 2.4 mg/dL (1.8-2.4)
[2018-08-09 08:30] LABS: Prealbumin 22.3 mg/dL (20-40)
[2018-08-09] MEDS: ENOXAPARIN 40 MG/0.4 ML SQ SCH (08:35)
[2018-08-09] MEDS: LIDOCAINE 5% PATCH TOP SCH (08:35)
[2018-08-09] MEDS: DOCUSATE NA 100 MG CAP PO SCH ×2 (08:36→19:50)
[2018-08-09] MEDS: RAMIPRIL 5 MG CAP PO SCH ×2 (08:36→19:51)
[2018-08-09] MEDS: hydroCHLOROthiazide 12.5 MG CAP PO SCH (08:36)
[2018-08-09] MEDS: ASPIRIN EC 81 MG TAB PO SCH (08:36)
[2018-08-09] MEDS: AMLODIPINE 5 MG TAB PO SCH ×2 (08:36→19:50)
[2018-08-09] MEDS: MECLIZINE HCL 12.5 MG TAB PO SCH ×2 (08:36→19:51)
[2018-08-09] MEDS: GABAPENTIN 300 MG CAP PO SCH ×2 (08:36→19:51)
[2018-08-09] MEDS: ESCITALOPRAM 20 MG TAB PO SCH (08:36)
[2018-08-09 08:51] LABS: Blood Morphology Comment NOT SEEN (NOT SEEN); Platelet Estimate ADEQ; Platelets, Giant PRESENT
[2018-08-09] MEDS: Levofloxacin 750mg IV 750 MG/150 ML BAG IV SCH (11:06)
--- NOTE | 2018-08-09 11:18 | FAST ---
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 Daniel Mane M.D. ADMISSION DIAGNOSIS: - Debility 16 - Debility (16) RIGHT 6TH RIB FRCATURE. EATING: EATING - STEP 1: Does the patient require the assistance of a person or device, or need extra time when eating? Yes. EATING - STEP 2: Does the patient require the assistance of a helper? Yes. EATING - STEP 3: Does the patient perform half or more of the eating tasks? No. EATING - STEP 4: Does the patient require total assistance to eat, such as the helper holding the utensil and bringing all food and liquids to the mouth? No. EATING - SCORE: 2-MAX GROOMING: Activity did not occur on this shift GROOMING - SCORE: 0-UNK BATHING: Activity did not occur on this shift BATHING - SCORE: 0-UNK DRESSING - UPPER BODY: Activity did not occur on this shift Patient is not dressing in public clothing ARTICLES SCORE Total number of steps: 0 DRESSING - UPPER BODY - SCORE: 0-UNK DRESSING - LOWER BODY: Activity did not occur on this shift ARTICLES SCORE Total number of steps: 0 DRESSING - LOWER BODY - SCORE: 0-UNK TOILETING: TOILETING - STEP 1: Does the patient require the assistance of a person or device, or need extra time with toileting? Yes . TOILETING - STEP 2: Does the patient require the assistance of a helper? Yes. TOILETING - STEP 3: How much assistance does the patient require from the helper? Hands-on assistance from the helper TOILETING - STEP 4: Of the 3 tasks: 1) Adjusting clothing prior to use, 2) Cleansing of perineal area, 3) Adjusting clot stephenie after use; How many tasks does the patient perform WITHOUT assistance of the helper? Two tasks TOILETING - SCORE: 3-MOD BLADDER MANAGEMENT: [place] removes incontinent device (Depends, pull ups, etc.); cleans the patient after accident / inco ntinent episode; and, applies new incontinent device. BLADDER MANAGEMENT - SCORE: 1-DEP BLADDER MANAGEMENT - FREQUENCY OF ACCIDENTS: BLADDER MANAGEMENT(FA) - STEP 1: How many accidents has the patient had during the current shift? 2 BOWEL MANAGEMENT: Activity did not occur on this shift BOWEL MANAGEMENT - SCORE: 7-IND TRANSFERS: BED, CHAIR, WHEELCHAIR: TRANSFERS: BED, CHAIR, WHEELCHAIR - STEP 1: Does the patient require assistance of a person or device, or need extra time with bed, chair, or whe elchair transfers? Yes. TRANSFERS: BED, CHAIR, WHEELCHAIR - STEP 2: Does the patient require the assistance of a helper? Yes. TRANSFERS: BED, CHAIR, WHEELCHAIR - STEP 3: How much assistance does the patient require from the helper? Lifting of the patient TRANSFERS: BED, CHAIR, WHEELCHAIR - STEP 4: Does the helper lift the patient ONLY up? ONLY down? Up AND Down? ONLY up. TRANSFERS: BED, CHAIR, WHEELCHAIR - SCORE: 3-MOD TRANSFERS: TOILET: TRANSFERS: TOILET - STEP 1: Does the patient require the assistance of a person or device, or need extra time with toilet transfe rs? Yes. TRANSFERS: TOILET - STEP 2: Does the patient require the assistance of a helper? Yes. TRANSFERS: TOILET - STEP 3: How much assistance does the patient require from the helper? Patient performs half or more of the tr ansferring tasks TRANSFERS: TOILET - STEP 4: Does the patient need only incidental help such as contact guard or steadying during toilet transfer? No. Patient needs more than incidental help TRANSFERS: TOILET - SCORE: 3-MOD TRANSFERS: SHOWER: Activity did not occur on this shift TRANSFERS: SHOWER - SCORE: 0-UNK TRANSFERS: TUB: Activity did not occur on this shift TRANSFERS: TUB - SCORE: 0-UNK LOCOMOTION: WALK: Activity did not occur on this shift LOCOMOTION: WALK - SCORE: 0-UNK LOCOMOTION: WHEELCHAIR: Activity did not occur on this shift LOCOMOTION: WHEELCHAIR - SCORE: 0-UNK COMPREHENSION: COMPREHENSION: TYPE: Both COMPREHENSION - STEP 1: Does the patient require help from a person or device, or need extra time to understand complex and a bstract ideas (such as current events, finances, discharge planning, medical issues, relationships, e tc)? No. COMPREHENSION - STEP 2: Does the patient need extra time, require an assistive device (such as glasses for visual comprehensi on or a hearing aid for auditory comprehension) or does s/he have mild difficulty understanding compl ex and abstract information? Yes. COMPREHENSION - SCORE: 6-ROBBY EXPRESSION EXPRESSION: TYPE: Both EXPRESSION - STEP 1: Does the patient require help from a person or device, or need extra time expressing complex and abst ract ideas (such as current events, finances, discharge planning, medical issues, relationships, etc) ? Yes. EXPRESSION - STEP 2: Does the patient require help to express basic necessities or ideas (such as hunger, thirst, sleep, s afety, daily schedule, room location, or discomfort) half or more of the time? No. EXPRESSION - STEP 3: How often does the patient need help to express directions and conversation about basic needs? Less t watt 10% of the time EXPRESSION - SCORE: 5-SUP SOCIAL INTERACTION: SOCIAL INTERACTION - STEP 1: Does the patient require a helper to interact with others in social and therapeutic situations? No. SOCIAL INTERACTION - STEP 2: Does the patient need extra time in social situations, OR does s/he interact with staff, other patien ts, and family members ONLY in structured environments, OR does s/he require medication for social in teraction? Yes, patient needs extra time SOCIAL INTERACTION - SCORE: 6-ROBBY PROBLEM SOLVING: PROBLEM SOLVING - STEP 1: Does the patient need help from a person or device, or need extra time to solve complex problems such as managing a checking account or confronting interpersonal problems? No. PROBLEM SOLVING - STEP 2: Does the patient require extra time to make decisions or solve problems, OR does s/he have slight dif ficulty reading, initiating, or self-correcting in unfamiliar situations? Yes, patient needs extra ti me. PROBLEM SOLVING - SCORE: 6-ROBBY MEMORY: MEMORY - STEP 1: Does the patient need help from a person or device, or need extra time to remember frequently encount ered people, daily routines, and executing requests? Yes. MEMORY - STEP 2: How often does the patient need help to remember frequently encountered people, daily routines, and e xecuting requests? Less than 10% of the time MEMORY - SCORE: 5-SUP SIGNATURE PANEL: The following modified sections: Eating - Score, Grooming - Score, Bathing - Score, Dressing - Upper Body - Score, Dressing - Lower Body - Score, Toileting - Score, Bladder Management - Score, Bowel Man agement - Score, Transfers: Bed, Chair, Wheelchair - Score, Transfers: Toilet - Score, Transfers: Kayla wer - Score, Transfers: Tub - Score, Locomotion: Walk - Score, Locomotion: Wheelchair - Score, Compre hension - Score, Expression - Score, Social Interaction - Score, Problem Solving - Score, Memory - Sc ore were [electronically] signed by Cali Barron on MonAug 09 2018 11:17:54 GMT-0600 (Central Standard Time)
[2018-08-09] MEDS: GUAIFENESIN/DM 5 ML UCUP PO PRN (13:27)
--- NOTE | 2018-08-09 14:55 | FAST ---
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 Daniel Mane M.D. ADMISSION DIAGNOSIS: - Debility 16 - Debility (16) RIGHT 6TH RIB FRCATURE. EATING: Activity did not occur on this shift EATING - SCORE: 0-UNK GROOMING: Activity did not occur on this shift GROOMING - SCORE: 0-UNK BATHING: Activity did not occur on this shift BATHING - SCORE: 0-UNK DRESSING - UPPER BODY: Activity did not occur on this shift Patient is not dressing in public clothing ARTICLES SCORE Total number of steps: 0 DRESSING - UPPER BODY - SCORE: 0-UNK DRESSING - LOWER BODY: Activity did not occur on this shift Patient is not dressing in public clothing ARTICLES SCORE Total number of steps: 0 DRESSING - LOWER BODY - SCORE: 0-UNK TOILETING: Activity did not occur on this shift TOILETING - SCORE: 0-UNK BLADDER MANAGEMENT: Activity did not occur on this shift BLADDER MANAGEMENT - SCORE: 7-IND BOWEL MANAGEMENT: Activity did not occur on this shift BOWEL MANAGEMENT - SCORE: 7-IND TRANSFERS: BED, CHAIR, WHEELCHAIR: TRANSFERS: BED, CHAIR, WHEELCHAIR - STEP 1: Does the patient require assistance of a person or device, or need extra time with bed, chair, or whe elchair transfers? Yes. TRANSFERS: BED, CHAIR, WHEELCHAIR - STEP 2: Does the patient require the assistance of a helper? Yes. TRANSFERS: BED, CHAIR, WHEELCHAIR - STEP 3: How much assistance does the patient require from the helper? Lifting of the patient TRANSFERS: BED, CHAIR, WHEELCHAIR - STEP 4: Does the helper lift the patient ONLY up? ONLY down? Up AND Down? Up AND Down. TRANSFERS: BED, CHAIR, WHEELCHAIR - SCORE: 2-MAX TRANSFERS: TOILET: Activity did not occur on this shift TRANSFERS: TOILET - SCORE: 0-UNK TRANSFERS: SHOWER: Activity did not occur on this shift TRANSFERS: SHOWER - SCORE: 0-UNK TRANSFERS: TUB: Activity did not occur on this shift TRANSFERS: TUB - SCORE: 0-UNK LOCOMOTION: WALK: Patient walks less than 50 feet LOCOMOTION: WALK - SCORE: 1-DEP LOCOMOTION: WHEELCHAIR: Activity did not occur on this shift LOCOMOTION: WHEELCHAIR - SCORE: 0-UNK LOCOMOTION: STAIRS: Activity did not occur on this shift LOCOMOTION: STAIRS - SCORE: 0-UNK COMPREHENSION: COMPREHENSION - SCORE: 0-UNK EXPRESSION EXPRESSION - SCORE: 0-UNK SOCIAL INTERACTION: SOCIAL INTERACTION - SCORE: 0-UNK PROBLEM SOLVING: PROBLEM SOLVING - SCORE: 0-UNK MEMORY: MEMORY - SCORE: 0-UNK SIGNATURE PANEL: The following modified sections: Transfers: Bed, Chair, Wheelchair - Score, Transfers: Toilet - Score , Locomotion: Walk - Score, Locomotion: Wheelchair - Score, Locomotion: Stairs - Score were [electron ically] signed by Jacky Santoro PT on MonAug 09 2018 14:54:37 GMT-0600 (Central Standard Time)
--- NOTE | 2018-08-09 18:17 | R.HP ---
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 board/care, assisted living, custodial, transitional living) PRE-HOSPITAL LIVING WITH Family/Relatives ENCOUNTER PHYSICIAN: Dr. Daniel Mane M.D. REFERRING DOCTOR: leslye Camacho DATE OF ADMISSION: 08/08/2018 16:18 (SCRAP PILER) REFERRING FACILITY [facility] HOME TYPE AND DETAILS: Type of home: single family house # of levels in the residence: 1 # of steps within the residence: 0 # of steps to enter the residence: 0 ADMISSION DIAGNOSIS: RIGHT 6TH RIB FRCATURE ONSET DATE: 08/03/2018 PRIMARY DIAGNOSIS-RELATED SURGERIES: N/A SECONDARY/COMORBID DIAGNOSES (TIERED): - N/A CAD Hypertension CVA HYPERLIPIDEMIA PROSTATE CANCER DVT LLE AND MATY OBSTRUCTIVE SLEEP APNEA ATRIAL FIBRILLATION HYPOTHYROIDISM HISTORY OF PRESENT ILLNESS (HPI): Pt. is a 67 yo Right-handed white male. On 08/03/2018 he was admitted to [facility] with diagnosis RIGHT 6TH RIB FRCATU RE. His impairment category is Debility 16 - Debility (16). Pre-morbidly, Pt. was independent/mod-I in Sphincter Control, Transfers Control, Communication, Socia l Cognition, Self-Care, and Locomotion; and he had good Sphincter Control. Currently, he has deficits of Safety Awareness, Transfers Control, Balance, Self-Care, Locomotion, an d Endurance. Pt. is now referred to [facility] for acute in-patient rehabilitation in order to maximize patient's functional independence in activities of daily living, strength, ROM, and mobi lity. Patient has realistic goal of being discharged at assistance level 6-Henny to reside at Home with Fam liana/Relatives. Elsie Rodriguez is a 67 year old male that lives in a single [place]ara home with his son. Patient requires assistance from his son on ADLs from his previous stroke. On 08/03/2018, he had SOB and was admitted to [facility] and treated. He is now medically stable but in need of 24-hour nursing, doctor supervision and oversite participate in 3hours of therapy a day/15 hours per week and receive care with an intensive interdisciplinary approach. MEDICATION ALLERGIES: Sulfa ENVIRONMENTAL ALLERGIES: None Known - Substance Allergies None Known - Other Allergies None Known PAST MEDICAL HISTORY: ATRIAL FIBRILLATION CAD CVA DVT LLE AND MATY HYPERLIPIDEMIA HYPOTHYROIDISM Hypertension OBSTRUCTIVE SLEEP APNEA PROSTATE CANCER PAST SURGICAL HISTORY: CABG TRACHEOSTOMY PEG CAROTID ENDODARTERECTOMY AORTIC VALVE REPLACEMENT INGUINAL/UMBILICAL HERNIA REPAIR FAMILY HISTORY: Family history is not contributory. SOCIAL HISTORY: - Home Living Family/Relatives REVIEW OF SYSTEMS: - Gen No Chills Fatigue No Fever - Eyes No Double Vision No itchiness - ENMT No Difficulty Swallowing - CVS No Chest Discomfort No Chest Pain Fatigue No Weight Gain - Resp No Cough No Shortness of Breath - GI Continent No Abdominal Pain Constipation No Diarrhea - Continent No Kidney Pain No Painful Urination No Urinary Urgency - MSK No Joint Pain Muscle Cramps Stiffness - Skin No Itching No Rash No Suspicious Lesions - Neuro Coordination Difficulty No Difficulty with Concentration No Memory Loss No Seizures No Weakness - Psych No Anxiety No Depression No HIV Exposure No Persistent Infections No Seasonal Allergies - Endo No Cold/Heat Intolerance No Excessive Hunger No Excessive Thirst No Excessive Urination PHYSICAL EXAM - Gen Alert and awake Lying in bed No apparent distress Oriented to: person, time, and place - Skin No breakdown No abnormalities - Eyes No abnormalities - ENMT No abnormalities - Neck No abnormalities - CVS RRR - Chest No abnormalities - Resp Clear to auscultation - Abd + bowel sounds - GI Soft Deferred - No abnormalities - Ext Mild bilateral lower extremity edema. - MSK 4+/5 weakness in both lower extremities. - Neuro No focal deficits - Psych No abnormalities VITAL SIGNS Temperature: 98.1 F SBP/DBP: 141/79 Pulse: 85 Resp: 20 NURSING: - Shower allowing shower ACTIVITIES OOB only with supervision FUNCTIONAL STATUS: - Self-Care A. Eating Ind sup B. Grooming Ind Henny C. Bathing Ind Ruddy D. Dressing - Upper Ind Ruddy E. Dressing - Lower Ind Rudyd F. Toileting Ind modA - Sphincter Control G: Bladder control Ind Ind H: Bowel control Ind Ind - Transfers Control I. Bed/Chair/Wheelchair Ind maxA J. Toilet Ind maxA K. Tub/Shower Ind ADNO - Locomotion L. Walk/Wheelchair (C) Ind modA L. Walk/Wheelchair (W) Ind modA M. Stairs Ind ADNO - Communication N. Comprehension (B) Ind Ind O. Expression (B) Ind Ind - Social Cognition P. Social Interaction Ind Ind Q. Problem Solving Ind Ind R. Memory Ind Ind - Endurance Fair - Balance Fair - Safety Awareness Fair CURRENT FUNC. DEFICITS: Safety Awareness, Transfers Control, Balance, Self-Care, Locomotion, and Endurance ASSESSMENT: Pt. is a 67 yo Right-handed white male.On 08/03/2018 he was admitted to [facility] with diagnosis RIGHT 6TH RIB FRCATURE.His impairment category is Debility 16 - Debility (16).Pre -morbidly, Pt. was independent/mod-I in Sphincter Control, Transfers Control, Communication, Social C ognition, Self-Care, and Locomotion; and he had good Sphincter Control.Currently, he has deficits of Safety Awareness, Transfers Control, Balance, Self-Care, Locomotion, and Endurance.Pt. is now referre d to [facility] for acute in-patient rehabilitation in order to maximize patie nt's functional independence in activities of daily living, strength, ROM, and mobility.- Rehab Goal Patient has realistic goal of being discharged at assistance level 6-Henny to reside at Home with Fam liana/Relatives. Elsie Rodriguez is a 67 year old male that lives in a single [place] home with his son. Patient requires assistance from his son on ADLs from his previous stroke. On 08/03/2018, he had SOB and was admitted to [facility] and treated. He is now medically stable but in need of 24-hour nursing, doctor supervision and oversite participate in 3hours of therapy a day/15 hours per week and receive care with an intensive interdisciplinary approach.REHAB PLAN: - Physical Therapy Gait dysfunction - to improve, our physical therapists will perform initial evaluation of pt's status upon admission and devise an individualized program for Gait Training, and Wheel Chair mobility Inability to transfer - to improve, our physical therapists will perform initial evaluation of pt's s tatus upon admission and devise an individualized program for Bed mobility Need for home safety evaluation - to improve, our physical therapists will perform initial evaluation of pt's status upon admission and devise an individualized program for Home Evaluation Need in caregiver upon discharge - to improve, our physical therapists will perform initial evaluatio n of pt's status upon admission and devise an individualized program for Caregiver Training New precaution - to improve, our physical therapists will perform initial evaluation of pt's status u rita admission and devise an individualized program for Patient precaution education Edema - to improve, our physical therapists will perform initial evaluation of pt's status upon admi ssion and devise an individualized program for Elevation Training, and Lymphedema Therapy Poor balance - to improve, our physical therapists will perform initial evaluation of pt's status upo n admission and devise an individualized program for Balance Training Poor endurance - to improve, our physical therapists will perform initial evaluation of pt's status u rita admission and devise an individualized program for Endurance Training Weakness - to improve, our physical therapists will perform initial evaluation of pt's status upon ad mission and devise an individualized program for Aquatic Therapy, Neuromuscular Reeducation, and Stre ngthening Achieving independence - to improve, our physical therapists will perform initial evaluation of pt's status upon admission and devise an individualized program for Community Reintegration Activities - Occupational Therapy ADL deficits - to improve, our occupation therapists will perform initial evaluation of pt's status u rita admission and devise an individualized program for Bathing, Bed mobility, Community Reintegration , Cooking, Dressing, Eating, Fine Motor Skills, Grooming, Homemaking, Kitchen Mobility, Laundry, Flores ent Education, Safety Awareness, Splinting - Positioning, Transfers(Toilet, Tub, Shower), and Wheel C hair Management Need for care technician - to improve, our occupation therapists will perform initial evaluation of pt's s tatus upon admission and devise an individualized program for Caregiver Training Weakness - to improve, our occupation therapists will perform initial evaluation of pt's status upon admission and devise an individualized program for Aquatic Therapy, Balance, Endurance, UE ROM, and U E strengthening MEDICAL PLAN: - Diet Type Start Heart Healthy - Diet - Liquid Texture Start Regular - Tube Feed Start N/A - Diet - Solid Texture Regular - Shower shower DISCHARGE PLAN: - Estimated Length of Stay (days) 13. - Consensus on plan Discharge plan has been discussed with primary caregiver. Patient/Family is in agreement with the bebo n. Primary caregiver is in agreement with the plan. - Patient/Family Goals Return home with assistance. - Planned Living Setting Upon Discharge Home, to live with Family/Relatives. SIGNATURE PANEL: (SCRAP PILER)
--- NOTE | 2018-08-09 18:20 | PAPE ---
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 Daniel Mane M.D. ADMISSION DIAGNOSIS: RIGHT 6TH RIB FRCATURE ONSET DATE 08/03/2018 SECONDARY/COMORBID DIAGNOSES TIERED: - N/A CAD Hypertension CVA HYPERLIPIDEMIA PROSTATE CANCER DVT LLE AND MATY OBSTRUCTIVE SLEEP APNEA ATRIAL FIBRILLATION HYPOTHYROIDISM POST-ADMISSION FUNCTIONAL/MEDICAL STATUS: - Bladder Same accident frequency: Ind - No accidents in the past 7 days - Bowel Same accident frequency: Ind - No accidents in the past 7 days - Walking Same score based on distance walked: 1(<=50ft) - Wheelchair Same score based on distance traveled: 0(N/A) STATUS CHANGE EVALUATION: No change in Functional or Medical Status is identified compared with Pre-Admission screening. PATIENT NEEDS CLOSE MEDICAL SUPERVISION BY A REHABILITATION PHYSICIAN FOR: Bowel and Bladder Management Coordination of Treatment Team DVT Management Medical and Co-Morbidity Management Pain Management PATIENT REQUIRES 24X7 REHAB NURSING FOR MEDICAL AND FUNCTIONAL MGT. OF THE FOLLOWING DEFICITS: ADL's Ambulation Bowel and Bladder Management Cognition Communication Disease Management Medication Management Patient/Family Education Providing Safe Environment Transfers Pain Management PATIENT REQUIRES INTENSIVE, COORDINATED INTERDISCIPLINARY APPROACH TO REHAB: Arranging Home Equipment/Services Discharge Planning Family Intervention/Training Citrix Engineer/Case Management LIST OF IDENTIFIED AND POTENTIAL PROBLEMS: Alteration in leisure activities Bladder, Incontinence Blood Pressure, Hypertension/hypotension Issues Bowel, Incontinence DVT, Actual or Potential Infection, Actual or Potential Mobility Impaired Pain, Alteration in Comfort Self Care Deficit Skin Integrity, Actual or Potential Urinary Tract Infection (UTI), Actual or Potential RISK FOR COMPLICATIONS - CAD CHF. Cardiac Arrest. WA. Pain. - Hypertension CVA. Hypotension. WA. TIA. - Atrial Fibrillation CVA. Heart failure. Limb embolus. INTERVENTIONS - CAD 02 sats. Activity management. Medications. VS. - Hypertension - Atrial Fibrillation Anticoagulation. Medications. VS. PATIENT COULD BE AT RISK FOR COMPLICATIONS FROM ADVERSE MEDICAL CONDITIONS DUE TO HIS/HER COMORBIDITI ES AND THE RIGORS OF THE INTENSIVE REHABILLITATION PROGRAM. METHODS OR INTERVENTIONS TO AVOID COMPLIC ATIONS INCLUDE: - Deep Vein Thrombosis (DVT) Prophylaxis therapy for prevention . Sequential Compression Device (SCD). TE D Hose. - Infection Clinical staff to assess and manage the signs and symptoms of infection including fever, redness, war mth, etc. - Urinary Tract Infection - Falls Patient will be evaluated for Fall Precautions and will be placed on Fall Precautions as indicated pe r protocol. - Skin Breakdown Nursing will assess skin daily using assessment tool and will place on Skin Breakdown Precautions as indicated per protocol. - Pain Clinical staff may employ non-medication methods such as massage, distraction, decrease stimulus, etc . as needed. Clinical staff will assess patient's pain level every shift per protocol to assess and e nsure pain management effectiveness. Medications will be given and the pain level re-assessed. PRELIMINARY PLAN OF CARE: - Physical Therapy Patient needs Physical Therapy for a daily minimum of 1.5 hours at least 5 out of 7 days, to improve: Mobility, Strengthening, Transfers, Stretching, ROM, Endurance, Ability to manage stairs, Gait, and Balance. - Rehabilitation Nursing Patient requires 24x7 Rehabilitation Nursing for: Pain Issues, Identifying and preventing risk factor s, Monitoring and reporting current medical conditions, Assisting with ambulation and transfer, Celina ting with all ADL-s, Teaching patients about disease process and medications, Family teaching, Provid ing safe environment, Bowel and Bladder Issues, Skin Integrity, and Medication Management. Patient needs Citrix Engineer and/or Case Management for: Discharge Planning, Arranging Home Equipmen t or Services, and Family Interventions. - Dietary and Nutrition Services Patient needs Dietary and Nutrition Services for: Adequate Nutrition, Nutritional Supplements, and Nu tritional Education. - Occupational Therapy Patient needs Occupational Therapy for a daily minimum of 1.5 hours at least 5 out of 7 days, to impr ove Activities of Daily Living, including: Eating, Grooming, Bathing, Dressing, Toileting, Toilet Tra nsfers, Community Reintegration, Higher functional activities, Adaptive Equipment, Splinting, Househo ld Tasks, and Other activities as determined. POTENTIAL FUNCTIONAL GOALS FOR PATIENT TO ACHIEVE BY DISCHARGE: - Safety Precaution Patient will remain free from falls or injury at time of discharge. - Bed Mobility Patient will perform bed mobility at 4-Ruddy level of assistance. - Transfers Patient will complete transfers from bed to chair at 4-Ruddy level of assistance. - Mobility Patient will ambulate 150 ft with 4-Ruddy level of assistance with RW. PATIENT REHAB POTENTIAL Expected level of measurable improvement will be of a practical value to patient's functional capacit y or adaptations to impairments Has a viable Discharge Plan Medically appropriate; condition is sufficiently stable to participate in intensive rehab program Patient is able and expected to receive 3 hours of individualized therapy daily on at least 5 of ever y 7 days Patient's prognosis for significant practical improvement within a reasonable period of time appears Good DISCHARGE PLAN: - Estimated Length of Stay (days) 13. - Consensus on plan Discharge plan has been discussed with primary caregiver. Patient/Family is in agreement with the bebo n. Primary caregiver is in agreement with the plan. - Patient/Family Goals Return home with assistance. - Planned Living Setting Upon Discharge Home, to live with Family/Relatives. CONCLUSION ON REHABILITATION NECESSITY: I have evaluated patient's pre-admission functional status and, comparing it to the patient's post-ad mission functional status now, I conclude that the pre-admission assessment was accurate. Patient's c ondition on admission supports the medical necessity of admission to IRF. It is safe to proceed with patient's therapy program. 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
[2018-08-09] MEDS: MELATONIN 3 MG TABLET PO PRN (19:50)
[2018-08-09] MEDS: ATORVASTATIN 10 MG TAB PO SCH (19:50)
[2018-08-09] MEDS: TRAMADOL HCL 50 MG TAB PO PRN (22:52)
--- NOTE | 2018-08-10 02:20 | PN ---
Date of Progress Note: 08/09/2018 Subjective: The patient was seen this morning for followup. He was on the rehab floor, not in any d istress, sleeping with his CPAP machine on. Objective: Vital Signs: Reviewed. HEENT: Examination unremarkable. Lungs: Clear to auscultation. Cardiac: Heart sounds normal. Abdomen: Soft. Bowel sounds normal. No guarding, rigidity, tenderness or distention. Extremities: No leg edema. Laboratory Data: White count 8.8, hemoglobin 13.2, platelets 317. Impression: 1.Pneumonia. 2.Generalized weakness. 3.Rib fracture. 4.Hypertension. 5.Stroke. Plan: We will continue current medications. Continue current antibiotics. Physical therapy will be provided under guidance of Dr. Mane and I will see him tomorrow for followup. DAWNA/MODL Voice ID: [id number] Report ID: [id number]
[2018-08-10] MEDS: HYDROCODONE/APAP 5/325 MG TAB PO PRN ×2 (04:43→16:51)
[2018-08-10] MEDS: LIDOCAINE 5% PATCH TOP SCH (07:06)
[2018-08-10] MEDS: ENOXAPARIN 40 MG/0.4 ML SQ SCH (07:06)
[2018-08-10] MEDS: GABAPENTIN 300 MG CAP PO SCH ×2 (07:07→20:42)
[2018-08-10] MEDS: TRAMADOL HCL 50 MG TAB PO PRN (07:07)
[2018-08-10] MEDS: MECLIZINE HCL 12.5 MG TAB PO SCH ×2 (07:08→20:42)
[2018-08-10] MEDS: ESCITALOPRAM 20 MG TAB PO SCH (07:08)
[2018-08-10] MEDS: DOCUSATE NA 100 MG CAP PO SCH ×2 (07:08→20:42)
[2018-08-10] MEDS: ASPIRIN EC 81 MG TAB PO SCH (07:08)
[2018-08-10] MEDS: RAMIPRIL 5 MG CAP PO SCH ×2 (07:08→20:43)
[2018-08-10] MEDS: hydroCHLOROthiazide 12.5 MG CAP PO SCH (07:16)
[2018-08-10] MEDS: AMLODIPINE 5 MG TAB PO SCH ×2 (07:16→20:42)
--- NOTE | 2018-08-10 10:07 | P.RH.PN ---
Estimated Length of Stay: 14 Expected Discharge Date: 08/22/18 Discharge Disposition Plan: Home Family Support: Yes Prison Goal: Mobility, Transfers, Self Care Vital Signs: Last Vital Signs Temp 97.4 F 08/10/18 08:00 Pulse 75 08/10/18 08:00 Resp 16 08/10/18 08:00 BP 144/81 H 08/10/18 08:00 Pulse Ox 93 08/10/18 08:00 Laboratory: Laboratory Last Values WBC 8.8 K/uL (4.3-10.9) 08/09/18 06:21 RBC 4.35 M/uL (4.33-5.43) 08/09/18 06:21 Hgb 13.2 g/dL (13.6-17.9) L 08/09/18 06:21 Hct 37.3 % (39.6-49.0) L 08/09/18 06:21 MCV 85.7 fL (80-100) 08/09/18 06:21 MCH 30.4 pg (27.0-35.0) 08/09/18 06:21 MCHC 35.5 g/dL (32.0-36.0) 08/09/18 06:21 RDW 14.1 % (12.1-15.2) 08/09/18 06:21 Plt Count 375 K/uL (152-406) 08/09/18 06:21 MPV 7.4 fL (7.6-11.3) L 08/09/18 06:21 Neutrophils % 68.9 % (41.7-73.7) 08/09/18 06:21 Lymphocytes % 19.4 % (15.3-44.8) 08/09/18 06:21 Monocytes % 8.7 % (3.3-12.3) 08/09/18 06:21 Eosinophils % 2.4 % (0-4.4) 08/09/18 06:21 Basophils % 0.6 % (0-1.3) 08/09/18 06:21 Absolute Neutrophils 6.1 K/uL (1.8-8.0) 08/09/18 06:21 Segmented Neutrophils 59 % (40-80) 08/09/18 06:21 Band Neutrophils 3 % (0-1) H 08/09/18 06:21 Absolute Lymphocytes 1.7 K/uL (0.7-4.9) 08/09/18 06:21 Lymphocytes 21 % (15-42) 08/09/18 06:21 Monocytes 10 % (0-10) 08/09/18 06:21 Absolute Monocytes 0.8 K/uL (0.1-1.3) 08/09/18 06:21 Eosinophils 3 % (0-3) 08/09/18 06:21 Absolute Eosinophils 0.2 K/uL (0-0.5) 08/09/18 06:21 Absolute Basophils 0.0 K/uL (0-0.5) 08/09/18 06:21 Metamyelocytes 2 % (0-0) H 08/09/18 06:21 Myelocytes 2 % (0-0) H 08/09/18 06:21 Giant Platelets Present 08/09/18 06:21 Morphology Comment Not seen (NOT SEEN) 08/09/18 06:21 Sodium 129 mmol/L (136-145) L 08/09/18 06:21 Potassium 3.8 mmol/L (3.5-5.1) 08/09/18 06:21 Chloride 92 mmol/L (98-107) L 08/09/18 06:21 Carbon Dioxide 30 mmol/L (21-32) 08/09/18 06:21 BUN 21 mg/dL (7-18) H 08/09/18 06:21 Creatinine 1.00 mg/dL (0.55-1.3) 08/09/18 06:21 Estimated GFR 9 mL/min (=/>90) L 08/09/18 06:21 Glucose 89 mg/dL (74-106) 08/09/18 06:21 Calcium 8.8 mg/dL (8.5-10.1) 08/09/18 06:21 Magnesium 2.4 mg/dL (1.8-2.4) 08/09/18 06:21 Albumin 3.2 g/dL (3.4-5.0) L 08/09/18 06:21 Prealbumin 22.3 mg/dL (20-40) 08/09/18 06:21 Weight: 177 lb Wound Present: No Closed Surgical Incision Present: No Negative Pressure Wound Therapy Present: No Physician Update: His labs have been reviewed and are stable. He is doing fairly well with physical and occupational therapy. He was not doing much on his own at home prior to his fall and rib fractures due to his chronic stroke. Pain Issues: Weston 5/325mg Q4H PRN. Tramadol 50mg Q6H PRN Functional Improvement: pt presents with Hemiparesis on the R side. pt demonstrates hypertonicity as well on the R side, which aides in is ability to ambulate. pt does exhibit poor balance and stability during ambulation and functional mobility. pt experiences poor tolerance to functional activity due to fatigue and weakness. pt requires significant training to enhance balance and safety during weightbearing. Skilled PT services are necessary to address the above mentioned impairments and functional limitations. Functional Improvement Occupational Therapy: Patient very participatory and motivated to improve current level of function with all BADL tasks. Speech Therapy Update: Patient obtained a 15/15 on the BIMS. However, only a 17 /30 on the SLUMS. He demonstrated cognitive-linguistic impairments in attention , auditory memory, and mental flexibility. Patient exhibits a moderate dysarthria characterized by reduced breath support, hoarse, strained vocal quality, decreased pitch stability, articulation issues (imprecise consonant production, irregular rate/rhythm, but good prosody and resonance. Patient exhibits mild dysphagia characterized by mildly prolonged oral phase and an effortful swallow. Pt is tolerating regular solids/thin liquids without clinical s/s of aspiration. Patient current levels are MIN A for auditory comprehension, MOD A for verbal expression, MOD I for social interaction, MOD A for problem solving, and MOD A for memory. Summary: Patient's care plan and intermodal customer service goals have been reviewed and revised as necessary. Please see the Rehabilitation Signature page for all necessary signatures.
[2018-08-10] MEDS: Levofloxacin 750mg IV 750 MG/150 ML BAG IV SCH (12:23)
[2018-08-10] MEDS ORDERED: BISACODYL 10 MG RECTAL SUPP PR ONE (12:29)
[2018-08-10] MEDS ORDERED: POLYETHYL GLY 3350 17 GM/DOSE PO ONE (12:29)
[2018-08-10] MEDS: TRAMADOL HCL 50 MG TAB PO SCH ×2 (13:08→19:00)
--- NOTE | 2018-08-10 14:18 | FAST ---
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 Daniel aMne M.D. ADMISSION DIAGNOSIS: - Debility 16 - Debility (16) RIGHT 6TH RIB FRCATURE. EATING: Activity did not occur on this shift EATING - SCORE: 0-UNK GROOMING: Activity did not occur on this shift GROOMING - SCORE: 0-UNK BATHING: Activity did not occur on this shift BATHING - SCORE: 0-UNK DRESSING - UPPER BODY: T-shirt/pullover shirt (four steps) ARTICLES SCORE Total number of steps: 4 DRESSING - UPPER BODY - STEP 1: Does the patient require help from a person or device, or need extra time when dressing above the meek st? Yes. DRESSING - UPPER BODY - STEP 2: Does the patient require the assistance of a helper? Yes. DRESSING - UPPER BODY - STEP 3: Does the helper touch the patient while dressing? Yes. DRESSING - UPPER BODY - STEP 4: How many of the total steps does the patient complete on his/her own? 1 DRESSING - UPPER BODY - STEP 5: Does Patient require total assistance for dressing above the waist such as the helper holding clothin g and performing basically all the activities? Yes. DRESSING - UPPER BODY - SCORE: 1-DEP DRESSING - LOWER BODY: Elastic waist pants (three steps) Sock - Left foot (one step) Sock - Right foot (one step) Tied or buckled shoe - Left foot (two steps) Tied or buckled shoe - Right foot (two steps) Underwear (three steps) ARTICLES SCORE Total number of steps: 12 DRESSING - LOWER BODY - STEP 1: Does the patient require help from a person or device, or need extra time when dressing below the meek st? Yes. DRESSING - LOWER BODY - STEP 2: Does the patient require the assistance of a helper? Yes. DRESSING - LOWER BODY - STEP 3: Does the helper touch the patient while dressing? Yes. DRESSING - LOWER BODY - STEP 4: How many of the total steps does the patient complete on his/her own? 0 DRESSING - LOWER BODY - STEP 5: Does patient require total assistance for dressing below the waist such as the helper holding clothin g and performing basically all the activities? Yes. DRESSING - LOWER BODY - SCORE: 1-DEP TOILETING: Activity did not occur on this shift TOILETING - SCORE: 0-UNK BLADDER MANAGEMENT: Activity did not occur on this shift BLADDER MANAGEMENT - SCORE: 7-IND BOWEL MANAGEMENT: Activity did not occur on this shift BOWEL MANAGEMENT - SCORE: 7-IND TRANSFERS: BED, CHAIR, WHEELCHAIR: Activity did not occur on this shift TRANSFERS: BED, CHAIR, WHEELCHAIR - SCORE: 0-UNK TRANSFERS: TOILET: Activity did not occur on this shift TRANSFERS: TOILET - SCORE: 0-UNK TRANSFERS: SHOWER: Activity did not occur on this shift TRANSFERS: SHOWER - SCORE: 0-UNK TRANSFERS: TUB: Activity did not occur on this shift TRANSFERS: TUB - SCORE: 0-UNK LOCOMOTION: WALK: Activity did not occur on this shift LOCOMOTION: WALK - SCORE: 0-UNK LOCOMOTION: WHEELCHAIR: Activity did not occur on this shift LOCOMOTION: WHEELCHAIR - SCORE: 0-UNK LOCOMOTION: STAIRS: Activity did not occur on this shift LOCOMOTION: STAIRS - SCORE: 0-UNK COMPREHENSION: COMPREHENSION: TYPE: Visual COMPREHENSION - SCORE: 0-UNK EXPRESSION EXPRESSION - SCORE: 0-UNK SOCIAL INTERACTION: SOCIAL INTERACTION - SCORE: 0-UNK PROBLEM SOLVING: PROBLEM SOLVING - SCORE: 0-UNK MEMORY: MEMORY - SCORE: 0-UNK SIGNATURE PANEL: The following modified sections: Eating - Score, Grooming - Score, Bathing - Score, Dressing - Upper Body - Score, Dressing - Lower Body - Score, Toileting - Score, Transfers: Bed, Chair, Wheelchair - S core, Transfers: Toilet - Score, Transfers: Shower - Score, Transfers: Tub - Score, Comprehension - S core, Expression - Score, Social Interaction - Score, Problem Solving - Score, Memory - Score were [e lectronically] signed by VALE Reyes on MonAug 10 2018 14:17:43 T-0600 ([place] Time)
[2018-08-10] MEDS: FLEET ENEMA ADULT PR ONE ×2 (15:00)
[2018-08-10] MEDS: ALBUTEROL 2.5 MG/3 ML NEB SOL NEB SCH ×2 (15:15→19:40)
--- NOTE | 2018-08-10 15:41 | PN ---
Date of Progress Note: 08/10/2018 Subjective: The patient was seen this morning for followup. He was sitting in dining room in [facility], still complaining of lot of pain in his ribcage from the rib fracture, and constipation problem . Has not had a bowel movement in last few days. Denies any abdominal pain. He feels like he has s ome mucus in his throat and upper chest area, but not able to cough it up. Objective: Vital Signs: Reviewed. HEENT: Unremarkable. Lungs: Bilateral good equal entry except some scattered rhonchi in the upper lung. Not in respirato ry distress. Heart: Sounds normal. Abdomen: Soft. Bowel sounds normal. No guarding, rigidity, tenderness, or distention. Extremities: No leg edema. Laboratory Data: Yesterday's lab results reviewed. Impression: 1.Rib fracture. 2.Pneumonia. 3.Hypertension. 4.Stroke. 5.Generalized weakness. 6.Constipation. Plan: We will go ahead and change his albuterol from p.r.n. to scheduled doses as the patient says carina sousa has not received any nebulizer treatment, so we will just change the albuterol treatment to schedul e doses. We will change his tramadol also to schedule doses instead of p.r.n., and he still has extr a pain medicine, which is hydrocodone on a p.r.n. basis if he needs something else for the pain. For constipation, he has stool softener already in place that he takes. We will give 1 dose of Dulcolax rectal suppository and 1 dose of MiraLAX today. I will see him fly story for followup. DAWNA/MODL Voice ID: [id number] Report ID: [id number]
--- NOTE | 2018-08-10 17:53 | FAST ---
SHIFT START DATE/TIME: 08/10/2018 07:00 (SEX THERAPIST) SHIFT END DATE/TIME: 08/10/2018 19:00 (SEX THERAPIST) NAME ELSIE MENDOZA DATE OF : 1950 DATE OF ADMISSION: 08/08/2018 16:18 (SEX THERAPIST) PHONE: AGE: 67 SSN# [id number] GENDER: Male ENCOUNTER PHYSICIAN: Dr. Daniel Mane M.D. ADMISSION DIAGNOSIS: - Debility 16 - Debility (16) RIGHT 6TH RIB FRCATURE. EATING: EATING - STEP 1: Does the patient require the assistance of a person or device, or need extra time when eating? Yes. EATING - STEP 2: Does the patient require the assistance of a helper? No, patient only requires an assistive device, O R s/he takes more than reasonable time to eat, OR there is a safety concern, OR s/he requires modifie d food consistency EATING - SCORE: 6-ROBBY GROOMING: Activity did not occur on this shift GROOMING - SCORE: 0-UNK BATHING: Activity did not occur on this shift BATHING - SCORE: 0-UNK DRESSING - UPPER BODY: Activity did not occur on this shift ARTICLES SCORE Total number of steps: 0 DRESSING - UPPER BODY - SCORE: 0-UNK DRESSING - LOWER BODY: Elastic waist pants (three steps) Underwear (three steps) ARTICLES SCORE Total number of steps: 6 DRESSING - LOWER BODY - STEP 1: Does the patient require help from a person or device, or need extra time when dressing below the meek st? Yes. DRESSING - LOWER BODY - STEP 2: Does the patient require the assistance of a helper? Yes. DRESSING - LOWER BODY - STEP 3: Does the helper touch the patient while dressing? Yes. DRESSING - LOWER BODY - STEP 4: How many of the total steps does the patient complete on his/her own? 0 DRESSING - LOWER BODY - STEP 5: Does patient require total assistance for dressing below the waist such as the helper holding clothin g and performing basically all the activities? Yes. DRESSING - LOWER BODY - SCORE: 1-DEP TOILETING: TOILETING - STEP 1: Does the patient require the assistance of a person or device, or need extra time with toileting? Yes . TOILETING - STEP 2: Does the patient require the assistance of a helper? Yes. TOILETING - STEP 3: How much assistance does the patient require from the helper? Hands-on assistance from the helper TOILETING - STEP 4: Of the 3 tasks: 1) Adjusting clothing prior to use, 2) Cleansing of perineal area, 3) Adjusting clot stephenie after use; How many tasks does the patient perform WITHOUT assistance of the helper? One task TOILETING - SCORE: 2-MAX BLADDER MANAGEMENT: [place] removes incontinent device (Depends, pull ups, etc.); cleans the patient after accident / inco ntinent episode; and, applies new incontinent device. BLADDER MANAGEMENT - SCORE: 1-DEP BLADDER MANAGEMENT - FREQUENCY OF ACCIDENTS: BLADDER MANAGEMENT(FA) - STEP 1: How many accidents has the patient had during the current shift? 3 BOWEL MANAGEMENT: [place] removes incontinent device (depends, pull ups, etc.); cleans the patient after accident / inco ntinent episode; and, applies new device (depends, pull-ups, padding, etc.). BOWEL MANAGEMENT - SCORE: 1-DEP BOWEL MANAGEMENT - FREQUENCY OF ACCIDENTS: BOWEL MANAGEMENT(FA) - STEP 1: How many accidents has the patient had during the current shift? 4 TRANSFERS: BED, CHAIR, WHEELCHAIR: TRANSFERS: BED, CHAIR, WHEELCHAIR - STEP 1: Does the patient require assistance of a person or device, or need extra time with bed, chair, or whe elchair transfers? Yes. TRANSFERS: BED, CHAIR, WHEELCHAIR - STEP 2: Does the patient require the assistance of a helper? Yes. TRANSFERS: BED, CHAIR, WHEELCHAIR - STEP 3: How much assistance does the patient require from the helper? Lifting of the patient TRANSFERS: BED, CHAIR, WHEELCHAIR - STEP 4: Does the helper lift the patient ONLY up? ONLY down? Up AND Down? Up AND Down. TRANSFERS: BED, CHAIR, WHEELCHAIR - SCORE: 2-MAX TRANSFERS: TOILET: TRANSFERS: TOILET - STEP 1: Does the patient require the assistance of a person or device, or need extra time with toilet transfe rs? Yes. TRANSFERS: TOILET - STEP 2: Does the patient require the assistance of a helper? Yes. TRANSFERS: TOILET - STEP 3: How much assistance does the patient require from the helper? Patient performs less than half of the transferring tasks TRANSFERS: TOILET - STEP 4: Does the patient require total assistance for the toilet transfer such as the helper doing basically all the lifting? No. TRANSFERS: TOILET - SCORE: 2-MAX TRANSFERS: SHOWER: Activity did not occur on this shift TRANSFERS: SHOWER - SCORE: 0-UNK TRANSFERS: TUB: Activity did not occur on this shift TRANSFERS: TUB - SCORE: 0-UNK LOCOMOTION: WALK: Activity did not occur on this shift LOCOMOTION: WALK - SCORE: 0-UNK LOCOMOTION: WHEELCHAIR: Activity did not occur on this shift LOCOMOTION: WHEELCHAIR - SCORE: 0-UNK COMPREHENSION: COMPREHENSION - SCORE: 0-UNK EXPRESSION EXPRESSION - SCORE: 0-UNK SOCIAL INTERACTION: SOCIAL INTERACTION - SCORE: 0-UNK PROBLEM SOLVING: PROBLEM SOLVING - SCORE: 0-UNK MEMORY: MEMORY - SCORE: 0-UNK SIGNATURE PANEL: The following modified sections: Eating - Score, Grooming - Score, Bathing - Score, Dressing - Upper Body - Score, Dressing - Lower Body - Score, Toileting - Score, Bladder Management - Score, Bowel Man agement - Score, Transfers: Bed, Chair, Wheelchair - Score, Transfers: Toilet - Score, Transfers: Kayla wer - Score, Transfers: Tub - Score, Locomotion: Walk - Score, Locomotion: Wheelchair - Score, Compre hension - Score, Expression - Score, Social Interaction - Score, Problem Solving - Score, Memory - Sc ore were [electronically] signed by Diana Crawford CNA on MonAug 10 2018 17:52:33 GMT-0600 ([place] Time)
[2018-08-10] MEDS: ATORVASTATIN 10 MG TAB PO SCH (20:42)
[2018-08-11] MEDS: GUAIFENESIN/DM 5 ML UCUP PO PRN ×2 (00:49→08:45)
[2018-08-11] MEDS: TRAMADOL HCL 50 MG TAB PO SCH ×4 (00:49→18:49)
--- NOTE | 2018-08-11 02:08 | FAST ---
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 Daniel Mane M.D. ADMISSION DIAGNOSIS: - Debility 16 - Debility (16) RIGHT 6TH RIB FRCATURE. EATING: Activity did not occur on this shift EATING - SCORE: 0-UNK GROOMING: Activity did not occur on this shift GROOMING - SCORE: 0-UNK BATHING: Activity did not occur on this shift BATHING - SCORE: 0-UNK DRESSING - UPPER BODY: Activity did not occur on this shift ARTICLES SCORE Total number of steps: 0 DRESSING - UPPER BODY - SCORE: 0-UNK DRESSING - LOWER BODY: Activity did not occur on this shift ARTICLES SCORE Total number of steps: 0 DRESSING - LOWER BODY - SCORE: 0-UNK TOILETING: TOILETING - STEP 1: Does the patient require the assistance of a person or device, or need extra time with toileting? Yes . TOILETING - STEP 2: Does the patient require the assistance of a helper? Yes. TOILETING - STEP 3: How much assistance does the patient require from the helper? Hands-on assistance from the helper TOILETING - STEP 4: Of the 3 tasks: 1) Adjusting clothing prior to use, 2) Cleansing of perineal area, 3) Adjusting clot stephenie after use; How many tasks does the patient perform WITHOUT assistance of the helper? Two tasks TOILETING - SCORE: 3-MOD BLADDER MANAGEMENT: BLADDER MANAGEMENT - STEP 1: Does the patient control the bladder completely and intentionally without equipment or devices or med ications, and is always continent? No. BLADDER MANAGEMENT - STEP 2: Does the patient require the assistance of a helper? Yes. BLADDER MANAGEMENT - STEP 3: How much assistance does the patient require from the helper? Patient requires contact assistance fro m the helper BLADDER MANAGEMENT - STEP 4: How much contact assistance does the patient require from the helper? Patient requires minimal assist ance to maintain an external device - by positioning, and the patient performs 75% or more of bladder management tasks, while the helper provides less than 25% of the assistance to position patient on / off bedpan BLADDER MANAGEMENT - SCORE: 4-MIN BOWEL MANAGEMENT: Activity did not occur on this shift BOWEL MANAGEMENT - SCORE: 7-IND TRANSFERS: BED, CHAIR, WHEELCHAIR: TRANSFERS: BED, CHAIR, WHEELCHAIR - STEP 1: Does the patient require assistance of a person or device, or need extra time with bed, chair, or whe elchair transfers? Yes. TRANSFERS: BED, CHAIR, WHEELCHAIR - STEP 2: Does the patient require the assistance of a helper? Yes. TRANSFERS: BED, CHAIR, WHEELCHAIR - STEP 3: How much assistance does the patient require from the helper? Lifting of the legs TRANSFERS: BED, CHAIR, WHEELCHAIR - STEP 4: How many legs does the patient require the helper to lift? one leg TRANSFERS: BED, CHAIR, WHEELCHAIR - SCORE: 4-MIN TRANSFERS: TOILET: TRANSFERS: TOILET - STEP 1: Does the patient require the assistance of a person or device, or need extra time with toilet transfe rs? Yes. TRANSFERS: TOILET - STEP 2: Does the patient require the assistance of a helper? Yes. TRANSFERS: TOILET - STEP 3: How much assistance does the patient require from the helper? Patient performs half or more of the tr ansferring tasks TRANSFERS: TOILET - STEP 4: Does the patient need only incidental help such as contact guard or steadying during toilet transfer? No. Patient needs more than incidental help TRANSFERS: TOILET - SCORE: 3-MOD TRANSFERS: SHOWER: Activity did not occur on this shift TRANSFERS: SHOWER - SCORE: 0-UNK TRANSFERS: TUB: Activity did not occur on this shift TRANSFERS: TUB - SCORE: 0-UNK LOCOMOTION: WALK: Activity did not occur on this shift LOCOMOTION: WALK - SCORE: 0-UNK LOCOMOTION: WHEELCHAIR: Activity did not occur on this shift LOCOMOTION: WHEELCHAIR - SCORE: 0-UNK COMPREHENSION: COMPREHENSION: TYPE: Both COMPREHENSION - STEP 1: Does the patient require help from a person or device, or need extra time to understand complex and a bstract ideas (such as current events, finances, discharge planning, medical issues, relationships, e tc)? No. COMPREHENSION - STEP 2: Does the patient need extra time, require an assistive device (such as glasses for visual comprehensi on or a hearing aid for auditory comprehension) or does s/he have mild difficulty understanding compl ex and abstract information? Yes. COMPREHENSION - SCORE: 6-ROBBY EXPRESSION EXPRESSION: TYPE: Both EXPRESSION - STEP 1: Does the patient require help from a person or device, or need extra time expressing complex and abst ract ideas (such as current events, finances, discharge planning, medical issues, relationships, etc) ? Yes. EXPRESSION - STEP 2: Does the patient require help to express basic necessities or ideas (such as hunger, thirst, sleep, s afety, daily schedule, room location, or discomfort) half or more of the time? No. EXPRESSION - STEP 3: How often does the patient need help to express directions and conversation about basic needs? Less t watt 10% of the time EXPRESSION - SCORE: 5-SUP SOCIAL INTERACTION: SOCIAL INTERACTION - STEP 1: Does the patient require a helper to interact with others in social and therapeutic situations? No. SOCIAL INTERACTION - STEP 2: Does the patient need extra time in social situations, OR does s/he interact with staff, other patien ts, and family members ONLY in structured environments, OR does s/he require medication for social in teraction? Yes, patient needs extra time SOCIAL INTERACTION - SCORE: 6-ROBBY PROBLEM SOLVING: PROBLEM SOLVING - STEP 1: Does the patient need help from a person or device, or need extra time to solve complex problems such as managing a checking account or confronting interpersonal problems? No. PROBLEM SOLVING - STEP 2: Does the patient require extra time to make decisions or solve problems, OR does s/he have slight dif ficulty reading, initiating, or self-correcting in unfamiliar situations? Yes, patient needs extra ti me. PROBLEM SOLVING - SCORE: 6-ROBBY MEMORY: MEMORY - STEP 1: Does the patient need help from a person or device, or need extra time to remember frequently encount ered people, daily routines, and executing requests? Yes. MEMORY - STEP 2: How often does the patient need help to remember frequently encountered people, daily routines, and e xecuting requests? Less than 10% of the time MEMORY - SCORE: 5-SUP
[2018-08-11] MEDS: ALBUTEROL 2.5 MG/3 ML NEB SOL NEB SCH ×4 (02:58→20:00)
[2018-08-11] MEDS: HYDROCODONE/APAP 5/325 MG TAB PO PRN ×3 (04:11→21:14)
[2018-08-11] MEDS: LIDOCAINE 5% PATCH TOP SCH (07:48)
[2018-08-11] MEDS: ENOXAPARIN 40 MG/0.4 ML SQ SCH (07:51)
[2018-08-11] MEDS: ESCITALOPRAM 20 MG TAB PO SCH (08:46)
[2018-08-11] MEDS: hydroCHLOROthiazide 12.5 MG CAP PO SCH (08:46)
[2018-08-11] MEDS: MECLIZINE HCL 12.5 MG TAB PO SCH ×2 (08:46→21:05)
[2018-08-11] MEDS: DOCUSATE NA 100 MG CAP PO SCH ×2 (08:46→21:06)
[2018-08-11] MEDS: AMLODIPINE 5 MG TAB PO SCH ×2 (08:46→21:06)
[2018-08-11] MEDS: ASPIRIN EC 81 MG TAB PO SCH (08:47)
[2018-08-11] MEDS: GABAPENTIN 300 MG CAP PO SCH ×2 (08:47→21:06)
[2018-08-11] MEDS: RAMIPRIL 5 MG CAP PO SCH ×2 (10:15→21:05)
[2018-08-11] MEDS: Levofloxacin 750mg IV 750 MG/150 ML BAG IV SCH (12:02)
--- NOTE | 2018-08-11 15:24 | PN ---
Date of Progress Note: 08/11/2018 Subjective: The patient was seen this morning for followup. He was sitting in wheelchair. Denied a ny new complaints, but reported he was not feeling good. Upon further questioning, he reports that h is pain from the rib fracture is under good control with current pain medication as it was adjusted y esterday, and he did have a bowel movement yesterday. No other specific complaints reported. Objective: Vital Signs: Reviewed. HEENT: Unremarkable. Lungs: Clear to auscultation. No rhonchi. No rales. Heart: Sounds normal. Abdomen: Soft. Bowel sounds normal. No guarding, rigidity, tenderness, or distention. Extremities: No leg edema. Impression: 1.Pneumonia. 2.Stroke. 3.Hypertension. 4.Rib fracture. Plan: We will continue current medications, physical therapy. The patient is on IV Levaquin. We wi ll repeat chest x-ray today, then we will decide if he can change his antibiotic to oral antibiotics or not. DAWNA/MODL Voice ID: [id number] Report ID: [id number]
--- NOTE | 2018-08-11 18:21 | FAST ---
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 Daniel Mane M.D. ADMISSION DIAGNOSIS: - Debility 16 - Debility (16) RIGHT 6TH RIB FRCATURE. EATING: EATING - STEP 1: Does the patient require the assistance of a person or device, or need extra time when eating? Yes. EATING - STEP 2: Does the patient require the assistance of a helper? Yes. EATING - STEP 3: Does the patient perform half or more of the eating tasks? Yes. EATING - STEP 4: Does the patient need only supervision, cuing, coaxing OR help to apply an orthosis OR help to cut fo od, open containers, pour liquids, or butter bread? Yes. EATING - SCORE: 5-SUP GROOMING: Activity did not occur on this shift GROOMING - SCORE: 0-UNK BATHING: Activity did not occur on this shift BATHING - SCORE: 0-UNK DRESSING - UPPER BODY: Activity did not occur on this shift ARTICLES SCORE Total number of steps: 0 DRESSING - UPPER BODY - SCORE: 0-UNK DRESSING - LOWER BODY: Activity did not occur on this shift ARTICLES SCORE Total number of steps: 0 DRESSING - LOWER BODY - SCORE: 0-UNK TOILETING: TOILETING - STEP 1: Does the patient require the assistance of a person or device, or need extra time with toileting? Yes . TOILETING - STEP 2: Does the patient require the assistance of a helper? Yes. TOILETING - STEP 3: How much assistance does the patient require from the helper? Hands-on assistance from the helper TOILETING - STEP 4: Of the 3 tasks: 1) Adjusting clothing prior to use, 2) Cleansing of perineal area, 3) Adjusting clot stephenie after use; How many tasks does the patient perform WITHOUT assistance of the helper? No tasks; h elper performs all three tasks TOILETING - SCORE: 1-DEP BLADDER MANAGEMENT: Readlyn removes incontinent device (Depends, pull ups, etc.); cleans the patient after accident / inco ntinent episode; and, applies new incontinent device. BLADDER MANAGEMENT - SCORE: 1-DEP BLADDER MANAGEMENT - FREQUENCY OF ACCIDENTS: BLADDER MANAGEMENT(FA) - STEP 1: How many accidents has the patient had during the current shift? 0 BOWEL MANAGEMENT: Activity did not occur on this shift BOWEL MANAGEMENT - SCORE: 7-IND BOWEL MANAGEMENT - FREQUENCY OF ACCIDENTS: BOWEL MANAGEMENT(FA) - STEP 1: How many accidents has the patient had during the current shift? 0 TRANSFERS: BED, CHAIR, WHEELCHAIR: TRANSFERS: BED, CHAIR, WHEELCHAIR - STEP 1: Does the patient require assistance of a person or device, or need extra time with bed, chair, or whe elchair transfers? Yes. TRANSFERS: BED, CHAIR, WHEELCHAIR - STEP 2: Does the patient require the assistance of a helper? Yes. TRANSFERS: BED, CHAIR, WHEELCHAIR - STEP 3: How much assistance does the patient require from the helper? Lifting of the patient TRANSFERS: BED, CHAIR, WHEELCHAIR - STEP 4: Does the helper lift the patient ONLY up? ONLY down? Up AND Down? Up AND Down. TRANSFERS: BED, CHAIR, WHEELCHAIR - SCORE: 2-MAX TRANSFERS: TOILET: TRANSFERS: TOILET - STEP 1: Does the patient require the assistance of a person or device, or need extra time with toilet transfe rs? Yes. TRANSFERS: TOILET - STEP 2: Does the patient require the assistance of a helper? Yes. TRANSFERS: TOILET - STEP 3: How much assistance does the patient require from the helper? Patient performs less than half of the transferring tasks TRANSFERS: TOILET - STEP 4: Does the patient require total assistance for the toilet transfer such as the helper doing basically all the lifting? No. TRANSFERS: TOILET - SCORE: 2-MAX TRANSFERS: SHOWER: Activity did not occur on this shift TRANSFERS: SHOWER - SCORE: 0-UNK TRANSFERS: TUB: Activity did not occur on this shift TRANSFERS: TUB - SCORE: 0-UNK LOCOMOTION: WALK: Activity did not occur on this shift LOCOMOTION: WALK - SCORE: 0-UNK LOCOMOTION: WHEELCHAIR: Activity did not occur on this shift LOCOMOTION: WHEELCHAIR - SCORE: 0-UNK COMPREHENSION: COMPREHENSION: TYPE: Both COMPREHENSION - STEP 1: Does the patient require help from a person or device, or need extra time to understand complex and a bstract ideas (such as current events, finances, discharge planning, medical issues, relationships, e tc)? No. COMPREHENSION - STEP 2: Does the patient need extra time, require an assistive device (such as glasses for visual comprehensi on or a hearing aid for auditory comprehension) or does s/he have mild difficulty understanding compl ex and abstract information? Yes. COMPREHENSION - SCORE: 6-ROBBY EXPRESSION EXPRESSION: TYPE: Both EXPRESSION - STEP 1: Does the patient require help from a person or device, or need extra time expressing complex and abst ract ideas (such as current events, finances, discharge planning, medical issues, relationships, etc) ? Yes. EXPRESSION - STEP 2: Does the patient require help to express basic necessities or ideas (such as hunger, thirst, sleep, s afety, daily schedule, room location, or discomfort) half or more of the time? No. EXPRESSION - STEP 3: How often does the patient need help to express directions and conversation about basic needs? Less t watt 10% of the time EXPRESSION - SCORE: 5-SUP SOCIAL INTERACTION: SOCIAL INTERACTION - STEP 1: Does the patient require a helper to interact with others in social and therapeutic situations? No. SOCIAL INTERACTION - STEP 2: Does the patient need extra time in social situations, OR does s/he interact with staff, other patien ts, and family members ONLY in structured environments, OR does s/he require medication for social in teraction? Yes, patient needs extra time SOCIAL INTERACTION - SCORE: 6-ROBBY PROBLEM SOLVING: PROBLEM SOLVING - STEP 1: Does the patient need help from a person or device, or need extra time to solve complex problems such as managing a checking account or confronting interpersonal problems? Yes. PROBLEM SOLVING - STEP 2: Does the patient solve basic routine problems half or more of the time? Yes. PROBLEM SOLVING - STEP 3: How often does the patient need help to solve basic routine problems? Less than 10% of the time PROBLEM SOLVING - SCORE: 5-SUP MEMORY: MEMORY - STEP 1: Does the patient need help from a person or device, or need extra time to remember frequently encount ered people, daily routines, and executing requests? Yes. MEMORY - STEP 2: How often does the patient need help to remember frequently encountered people, daily routines, and e xecuting requests? Less than 10% of the time MEMORY - SCORE: 5-SUP SIGNATURE PANEL: The following modified sections: Eating - Score, Grooming - Score, Bathing - Score, Dressing - Upper Body - Score, Dressing - Lower Body - Score, Toileting - Score, Bladder Management - Score, Bowel Man agement - Score, Transfers: Bed, Chair, Wheelchair - Score, Transfers: Toilet - Score, Transfers: Kayla wer - Score, Transfers: Tub - Score, Locomotion: Walk - Score, Locomotion: Wheelchair - Score, Compre hension - Score, Expression - Score, Social Interaction - Score, Problem Solving - Score, Memory - Sc ore were [electronically] signed by Dasha Wei C.N.A. on MonAug 11 2018 18:20:58 GMT-0600 (Cent[facility] Standard Time)
--- NOTE | 2018-08-11 18:24 | FAST ---
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 Daniel Mane M.D. ADMISSION DIAGNOSIS: - Debility 16 - Debility (16) RIGHT 6TH RIB FRCATURE. EATING: Activity did not occur on this shift EATING - SCORE: 0-UNK GROOMING: Oral care Patient shaved GROOMING - STEP 1: Does the patient require the assistance of a person or device, or need extra time when grooming? Yes. GROOMING - STEP 2: Does the patient require the assistance of a helper? Yes. GROOMING - STEP 3: How much assistance does the patient require from the helper? Cuing, coaxing, instructions, or encour agement for completion of grooming GROOMING - SCORE: 5-SUP BATHING: Abdomen Buttocks Chest Left arm Left lower leg and foot Left upper leg Perineal area Right arm Right lower leg and foot Right upper leg BATHING - STEP 1: Does the patient require the assistance of a person or device, or need extra time when bathing? Yes. BATHING - STEP 2: Does the patient require the assistance of a helper? Yes. BATHING - STEP 3: How much assistance does the patient require from the helper? More than just incidental help BATHING - STEP 4: What percent of the body parts did the patient bathe WITHOUT the helper? Less than half of the body p arts BATHING - SCORE: 2-MAX DRESSING - UPPER BODY: T-shirt/pullover shirt (four steps) ARTICLES SCORE Total number of steps: 4 DRESSING - UPPER BODY - STEP 1: Does the patient require help from a person or device, or need extra time when dressing above the meek st? Yes. DRESSING - UPPER BODY - STEP 2: Does the patient require the assistance of a helper? Yes. DRESSING - UPPER BODY - STEP 3: Does the helper touch the patient while dressing? Yes. DRESSING - UPPER BODY - STEP 4: How many of the total steps does the patient complete on his/her own? 1 DRESSING - UPPER BODY - STEP 5: Does Patient require total assistance for dressing above the waist such as the helper holding clothin g and performing basically all the activities? No. DRESSING - UPPER BODY - SCORE: 2-MAX DRESSING - LOWER BODY: Elastic waist pants (three steps) Sock - Left foot (one step) Sock - Right foot (one step) Tied or buckled shoe - Left foot (two steps) Tied or buckled shoe - Right foot (two steps) Underwear (three steps) ARTICLES SCORE Total number of steps: 12 DRESSING - LOWER BODY - STEP 1: Does the patient require help from a person or device, or need extra time when dressing below the meek st? Yes. DRESSING - LOWER BODY - STEP 2: Does the patient require the assistance of a helper? Yes. DRESSING - LOWER BODY - STEP 3: Does the helper touch the patient while dressing? Yes. DRESSING - LOWER BODY - STEP 4: How many of the total steps does the patient complete on his/her own? 0 DRESSING - LOWER BODY - STEP 5: Does patient require total assistance for dressing below the waist such as the helper holding clothin g and performing basically all the activities? No. DRESSING - LOWER BODY - SCORE: 2-MAX TOILETING: Activity did not occur on this shift TOILETING - SCORE: 0-UNK BLADDER MANAGEMENT: Activity did not occur on this shift BLADDER MANAGEMENT - SCORE: 7-IND BOWEL MANAGEMENT: Activity did not occur on this shift BOWEL MANAGEMENT - SCORE: 7-IND TRANSFERS: BED, CHAIR, WHEELCHAIR: Activity did not occur on this shift TRANSFERS: BED, CHAIR, WHEELCHAIR - SCORE: 0-UNK TRANSFERS: TOILET: Activity did not occur on this shift TRANSFERS: TOILET - SCORE: 0-UNK TRANSFERS: SHOWER: TRANSFERS: SHOWER - STEP 1: Does the patient require the assistance of a person or device, or need extra time with shower transfe rs? Yes. TRANSFERS: SHOWER - STEP 2: Does the patient require the assistance of a helper? Yes. TRANSFERS: SHOWER - STEP 3: How much assistance does the patient require from the helper? More than incidental help TRANSFERS: SHOWER - STEP 4: How much more help does the patient require from the helper? Lifting the patient up AND down from the wheelchair onto the shower chair TRANSFERS: SHOWER - SCORE: 2-MAX TRANSFERS: TUB: Activity did not occur on this shift TRANSFERS: TUB - SCORE: 0-UNK LOCOMOTION: WALK: Activity did not occur on this shift LOCOMOTION: WALK - SCORE: 0-UNK LOCOMOTION: WHEELCHAIR: Activity did not occur on this shift LOCOMOTION: WHEELCHAIR - SCORE: 0-UNK LOCOMOTION: STAIRS: Activity did not occur on this shift LOCOMOTION: STAIRS - SCORE: 0-UNK COMPREHENSION: COMPREHENSION: TYPE: Both COMPREHENSION - STEP 1: Does the patient require help from a person or device, or need extra time to understand complex and a bstract ideas (such as current events, finances, discharge planning, medical issues, relationships, e tc)? Yes. COMPREHENSION - STEP 2: Does the patient require help to understand questions or statements about basic needs or ideas (such as hunger, thirst, sleep, safety, daily schedule, room location, or discomfort) half or more of the t madeleine? No. COMPREHENSION - STEP 3: How often does the patient need help to understand directions and conversation about basic needs? Les s than 10% of the time COMPREHENSION - SCORE: 5-SUP EXPRESSION EXPRESSION: TYPE: Vocal EXPRESSION - STEP 1: Does the patient require help from a person or device, or need extra time expressing complex and abst ract ideas (such as current events, finances, discharge planning, medical issues, relationships, etc) ? No. EXPRESSION - STEP 2: Does the patient need extra time, require an assistive device (such as augmentive communication syste m or a communication board), OR does s/he have mild difficulty expressing complex and abstract ideas (including mild dysarthria or mild word-find problems)? Yes. EXPRESSION - SCORE: 6-ROBBY SOCIAL INTERACTION: SOCIAL INTERACTION - STEP 1: Does the patient require a helper to interact with others in social and therapeutic situations? No. SOCIAL INTERACTION - STEP 2: Does the patient need extra time in social situations, OR does s/he interact with staff, other patien ts, and family members ONLY in structured environments, OR does s/he require medication for social in teraction? No. SOCIAL INTERACTION - SCORE: 7-IND PROBLEM SOLVING: PROBLEM SOLVING - STEP 1: Does the patient need help from a person or device, or need extra time to solve complex problems such as managing a checking account or confronting interpersonal problems? Yes. PROBLEM SOLVING - STEP 2: Does the patient solve basic routine problems half or more of the time? Yes. PROBLEM SOLVING - STEP 3: How often does the patient need help to solve basic routine problems? Less than 10% of the time PROBLEM SOLVING - SCORE: 5-SUP MEMORY: MEMORY - STEP 1: Does the patient need help from a person or device, or need extra time to remember frequently encount ered people, daily routines, and executing requests? Yes. MEMORY - STEP 2: How often does the patient need help to remember frequently encountered people, daily routines, and e xecuting requests? Less than 10% of the time MEMORY - SCORE: 5-SUP SIGNATURE PANEL: The following modified sections: Eating - Score, Grooming - Score, Bathing - Score, Dressing - Upper Body - Score, Dressing - Lower Body - Score, Toileting - Score, Transfers: Bed, Chair, Wheelchair - S core, Transfers: Toilet - Score, Transfers: Shower - Score, Transfers: Tub - Score, Comprehension - S core, Expression - Score, Social Interaction - Score, Problem Solving - Score, Memory - Score were [e lectronically] signed by Kadi Mortensen OT on Sat Aug 11 2018 18:23:21 GMT-0600 (Central Standard [place] nm)
--- NOTE | 2018-08-11 18:35 | RAD REPORT ---
EXAM DESCRIPTION: RADAlfredot Pa And Lat (2 Views)08/11/2018 3:37 pm CLINICAL HISTORY: Cough COMPARISON: August 06 FINDINGS: Bibasilar lung opacities have partially resolved. . The heart is mildly enlarged. Postsurg ical changes involve chest. Pleural calcifications are noted. IMPRESSION: Partial resolution in bibasilar lung opacities
[2018-08-11] MEDS: ATORVASTATIN 10 MG TAB PO SCH (21:06)
[2018-08-12] MEDS: TRAMADOL HCL 50 MG TAB PO SCH ×4 (01:09→19:28)
[2018-08-12] MEDS: ALBUTEROL 2.5 MG/3 ML NEB SOL NEB SCH ×4 (02:00→20:25)
--- NOTE | 2018-08-12 02:06 | FAST ---
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 Daniel Mane M.D. ADMISSION DIAGNOSIS: - Debility 16 - Debility (16) RIGHT 6TH RIB FRCATURE. EATING: Activity did not occur on this shift EATING - SCORE: 0-UNK GROOMING: Activity did not occur on this shift GROOMING - SCORE: 0-UNK BATHING: Activity did not occur on this shift BATHING - SCORE: 0-UNK DRESSING - UPPER BODY: Patient is not dressing in public clothing ARTICLES SCORE Total number of steps: 0 DRESSING - UPPER BODY - SCORE: 0-UNK DRESSING - LOWER BODY: Patient is not dressing in public clothing ARTICLES SCORE Total number of steps: 0 DRESSING - LOWER BODY - SCORE: 0-UNK TOILETING: TOILETING - STEP 1: Does the patient require the assistance of a person or device, or need extra time with toileting? Yes . TOILETING - STEP 2: Does the patient require the assistance of a helper? Yes. TOILETING - STEP 3: How much assistance does the patient require from the helper? Hands-on assistance from the helper TOILETING - STEP 4: Of the 3 tasks: 1) Adjusting clothing prior to use, 2) Cleansing of perineal area, 3) Adjusting clot stephenie after use; How many tasks does the patient perform WITHOUT assistance of the helper? No tasks; h kandace performs all three tasks TOILETING - SCORE: 1-DEP BLADDER MANAGEMENT: [place] removes incontinent device (Depends, pull ups, etc.); cleans the patient after accident / inco ntinent episode; and, applies new incontinent device. BLADDER MANAGEMENT - SCORE: 1-DEP BLADDER MANAGEMENT - FREQUENCY OF ACCIDENTS: BLADDER MANAGEMENT(FA) - STEP 1: How many accidents has the patient had during the current shift? 1 BOWEL MANAGEMENT: Activity did not occur on this shift BOWEL MANAGEMENT - SCORE: 7-IND TRANSFERS: BED, CHAIR, WHEELCHAIR: TRANSFERS: BED, CHAIR, WHEELCHAIR - STEP 1: Does the patient require assistance of a person or device, or need extra time with bed, chair, or whe elchair transfers? Yes. TRANSFERS: BED, CHAIR, WHEELCHAIR - STEP 2: Does the patient require the assistance of a helper? Yes. TRANSFERS: BED, CHAIR, WHEELCHAIR - STEP 3: How much assistance does the patient require from the helper? Lifting of the patient TRANSFERS: BED, CHAIR, WHEELCHAIR - STEP 4: Does the helper lift the patient ONLY up? ONLY down? Up AND Down? Up AND Down. TRANSFERS: BED, CHAIR, WHEELCHAIR - SCORE: 2-MAX TRANSFERS: TOILET: TRANSFERS: TOILET - STEP 1: Does the patient require the assistance of a person or device, or need extra time with toilet transfe rs? Yes. TRANSFERS: TOILET - STEP 2: Does the patient require the assistance of a helper? Yes. TRANSFERS: TOILET - STEP 3: How much assistance does the patient require from the helper? Patient performs half or more of the tr ansferring tasks TRANSFERS: TOILET - STEP 4: Does the patient need only incidental help such as contact guard or steadying during toilet transfer? No. Patient needs more than incidental help TRANSFERS: TOILET - SCORE: 3-MOD TRANSFERS: SHOWER: Activity did not occur on this shift TRANSFERS: SHOWER - SCORE: 0-UNK TRANSFERS: TUB: Activity did not occur on this shift TRANSFERS: TUB - SCORE: 0-UNK LOCOMOTION: WALK: Activity did not occur on this shift LOCOMOTION: WALK - SCORE: 0-UNK LOCOMOTION: WHEELCHAIR: Activity did not occur on this shift LOCOMOTION: WHEELCHAIR - SCORE: 0-UNK COMPREHENSION: COMPREHENSION: TYPE: Both COMPREHENSION - STEP 1: Does the patient require help from a person or device, or need extra time to understand complex and a bstract ideas (such as current events, finances, discharge planning, medical issues, relationships, e tc)? No. COMPREHENSION - STEP 2: Does the patient need extra time, require an assistive device (such as glasses for visual comprehensi on or a hearing aid for auditory comprehension) or does s/he have mild difficulty understanding compl ex and abstract information? Yes. COMPREHENSION - SCORE: 6-ROBBY EXPRESSION EXPRESSION: TYPE: Both EXPRESSION - STEP 1: Does the patient require help from a person or device, or need extra time expressing complex and abst ract ideas (such as current events, finances, discharge planning, medical issues, relationships, etc) ? No. EXPRESSION - STEP 2: Does the patient need extra time, require an assistive device (such as augmentive communication syste m or a communication board), OR does s/he have mild difficulty expressing complex and abstract ideas (including mild dysarthria or mild word-find problems)? Yes. EXPRESSION - SCORE: 6-ROBBY SOCIAL INTERACTION: SOCIAL INTERACTION - STEP 1: Does the patient require a helper to interact with others in social and therapeutic situations? No. SOCIAL INTERACTION - STEP 2: Does the patient need extra time in social situations, OR does s/he interact with staff, other patien ts, and family members ONLY in structured environments, OR does s/he require medication for social in teraction? Yes, patient needs extra time SOCIAL INTERACTION - SCORE: 6-ROBBY PROBLEM SOLVING: PROBLEM SOLVING - STEP 1: Does the patient need help from a person or device, or need extra time to solve complex problems such as managing a checking account or confronting interpersonal problems? Yes. PROBLEM SOLVING - STEP 2: Does the patient solve basic routine problems half or more of the time? Yes. PROBLEM SOLVING - STEP 3: How often does the patient need help to solve basic routine problems? 10%-24% of the time PROBLEM SOLVING - SCORE: 4-MIN MEMORY: MEMORY - STEP 1: Does the patient need help from a person or device, or need extra time to remember frequently encount ered people, daily routines, and executing requests? No. MEMORY - STEP 2: Does the patient have slight difficulty recognizing frequently encountered people, daily routines, or executing requests without the need for repetition or using self-initiated or environmental cues to remember? Yes. MEMORY - SCORE: 6-ROBBY SIGNATURE PANEL: The following modified sections: Eating - Score, Grooming - Score, Dressing - Upper Body - Score, Joseph ssing - Lower Body - Score, Toileting - Score, Bladder Management - Score, Bowel Management - Score, Transfers: Bed, Chair, Wheelchair - Score, Transfers: Toilet - Score, Transfers: Shower - Score, Gupta sfers: Tub - Score, Locomotion: Walk - Score, Locomotion: Wheelchair - Score, Comprehension - Score, Expression - Score, Social Interaction - Score, Problem Solving - Score, Memory - Score were [electro nically] signed by Isabela Arshad CNA on MonAug 12 2018 01:50:02 GMT-0600 (Central Standard Time)
[2018-08-12] MEDS: HYDROCODONE/APAP 5/325 MG TAB PO PRN ×2 (04:13→13:54)
[2018-08-12] MEDS: GABAPENTIN 300 MG CAP PO SCH ×2 (08:29→19:29)
[2018-08-12] MEDS: AMLODIPINE 5 MG TAB PO SCH ×2 (08:30→19:29)
[2018-08-12] MEDS: ESCITALOPRAM 20 MG TAB PO SCH (08:31)
[2018-08-12] MEDS: DOCUSATE NA 100 MG CAP PO SCH ×2 (08:31→19:29)
[2018-08-12] MEDS: MECLIZINE HCL 12.5 MG TAB PO SCH ×2 (08:31→19:29)
[2018-08-12] MEDS: hydroCHLOROthiazide 12.5 MG CAP PO SCH (08:31)
[2018-08-12] MEDS: ASPIRIN EC 81 MG TAB PO SCH (08:31)
[2018-08-12] MEDS: ENOXAPARIN 40 MG/0.4 ML SQ SCH (08:32)
[2018-08-12] MEDS: LIDOCAINE 5% PATCH TOP SCH (08:32)
[2018-08-12] MEDS: RAMIPRIL 5 MG CAP PO SCH ×2 (10:11→19:31)
[2018-08-12] MEDS: GUAIFENESIN/DM 5 ML UCUP PO PRN (10:13)
[2018-08-12] MEDS: POLYETHYL GLY 3350 17 GM/DOSE PO PRN (12:08)
[2018-08-12] MEDS: Levofloxacin 750mg IV 750 MG/150 ML BAG IV SCH (12:09)
[2018-08-12] MEDS ORDERED: POLYETHYL GLY 3350 17 GM/DOSE PO ONE (12:11)
[2018-08-12] MEDS ORDERED: BISACODYL 10 MG RECTAL SUPP PR ONE (12:11)
[2018-08-12] MEDS ORDERED: MAGNESIUM HYDROXIDE 8% 30 ML PO PRN (14:51)
--- NOTE | 2018-08-12 15:22 | FAST ---
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 Daniel Mane M.D. ADMISSION DIAGNOSIS: - Debility 16 - Debility (16) RIGHT 6TH RIB FRCATURE. EATING: EATING - STEP 1: Does the patient require the assistance of a person or device, or need extra time when eating? Yes. EATING - STEP 2: Does the patient require the assistance of a helper? Yes. EATING - STEP 3: Does the patient perform half or more of the eating tasks? Yes. EATING - STEP 4: Does the patient need only supervision, cuing, coaxing OR help to apply an orthosis OR help to cut fo od, open containers, pour liquids, or butter bread? Yes. EATING - SCORE: 5-SUP GROOMING: Comb/brush hair Oral care Wash, rinse, and dry face Wash, rinse, and dry hands GROOMING - STEP 1: Does the patient require the assistance of a person or device, or need extra time when grooming? Yes. GROOMING - STEP 2: Does the patient require the assistance of a helper? Yes. GROOMING - STEP 3: How much assistance does the patient require from the helper? More than incidental help GROOMING - STEP 4: How many grooming tasks does the patient perform WITHOUT the assistance of the helper? Half or more o f the grooming tasks GROOMING - SCORE: 3-MOD BATHING: Activity did not occur on this shift BATHING - SCORE: 0-UNK DRESSING - UPPER BODY: T-shirt/pullover shirt (four steps) ARTICLES SCORE Total number of steps: 4 DRESSING - UPPER BODY - STEP 1: Does the patient require help from a person or device, or need extra time when dressing above the [place] st? Yes. DRESSING - UPPER BODY - STEP 2: Does the patient require the assistance of a helper? Yes. DRESSING - UPPER BODY - STEP 3: Does the helper touch the patient while dressing? Yes. DRESSING - UPPER BODY - STEP 4: How many of the total steps does the patient complete on his/her own? 2 DRESSING - UPPER BODY - SCORE: 3-MOD DRESSING - LOWER BODY: Elastic waist pants (three steps) Sock - Left foot (one step) Sock - Right foot (one step) Tied or buckled shoe - Left foot (two steps) Tied or buckled shoe - Right foot (two steps) Underwear (three steps) ARTICLES SCORE Total number of steps: 12 DRESSING - LOWER BODY - STEP 1: Does the patient require help from a person or device, or need extra time when dressing below the meek st? Yes. DRESSING - LOWER BODY - STEP 2: Does the patient require the assistance of a helper? Yes. DRESSING - LOWER BODY - STEP 3: Does the helper touch the patient while dressing? Yes. DRESSING - LOWER BODY - STEP 4: How many of the total steps does the patient complete on his/her own? 0 DRESSING - LOWER BODY - STEP 5: Does patient require total assistance for dressing below the waist such as the helper holding clothin g and performing basically all the activities? Yes. DRESSING - LOWER BODY - SCORE: 1-DEP TOILETING: TOILETING - STEP 1: Does the patient require the assistance of a person or device, or need extra time with toileting? Yes . TOILETING - STEP 2: Does the patient require the assistance of a helper? Yes. TOILETING - STEP 3: How much assistance does the patient require from the helper? Hands-on assistance from the helper TOILETING - STEP 4: Of the 3 tasks: 1) Adjusting clothing prior to use, 2) Cleansing of perineal area, 3) Adjusting clot stephenie after use; How many tasks does the patient perform WITHOUT assistance of the helper? No tasks; h elper performs all three tasks TOILETING - SCORE: 1-DEP BLADDER MANAGEMENT: BLADDER MANAGEMENT - STEP 1: Does the patient control the bladder completely and intentionally without equipment or devices or med ications, and is always continent? No. BLADDER MANAGEMENT - STEP 2: Does the patient require the assistance of a helper? Yes. BLADDER MANAGEMENT - STEP 3: How much assistance does the patient require from the helper? Patient requires contact assistance fro m the helper BLADDER MANAGEMENT - STEP 4: How much contact assistance does the patient require from the helper? Patient requires maximal assist ance, and only performs 25% to 49% of bladder management tasks BLADDER MANAGEMENT - SCORE: 2-MAX BLADDER MANAGEMENT - FREQUENCY OF ACCIDENTS: BLADDER MANAGEMENT(FA) - STEP 1: How many accidents has the patient had during the current shift? 1 BOWEL MANAGEMENT: Suppository: [place] positions patient, places a pad, lubricates and inserts the suppository, provides digital stimulation, places patient on bedpan, and takes patient off of bedpan. BOWEL MANAGEMENT - SCORE: 1-DEP BOWEL MANAGEMENT - FREQUENCY OF ACCIDENTS: BOWEL MANAGEMENT(FA) - STEP 1: How many accidents has the patient had during the current shift? 1 TRANSFERS: BED, CHAIR, WHEELCHAIR: TRANSFERS: BED, CHAIR, WHEELCHAIR - STEP 1: Does the patient require assistance of a person or device, or need extra time with bed, chair, or whe elchair transfers? Yes. TRANSFERS: BED, CHAIR, WHEELCHAIR - STEP 2: Does the patient require the assistance of a helper? Yes. TRANSFERS: BED, CHAIR, WHEELCHAIR - STEP 3: How much assistance does the patient require from the helper? Lifting of the patient TRANSFERS: BED, CHAIR, WHEELCHAIR - STEP 4: Does the helper lift the patient ONLY up? ONLY down? Up AND Down? Up AND Down. TRANSFERS: BED, CHAIR, WHEELCHAIR - SCORE: 2-MAX TRANSFERS: TOILET: TRANSFERS: TOILET - STEP 1: Does the patient require the assistance of a person or device, or need extra time with toilet transfe rs? Yes. TRANSFERS: TOILET - STEP 2: Does the patient require the assistance of a helper? Yes. TRANSFERS: TOILET - STEP 3: How much assistance does the patient require from the helper? Patient performs less than half of the transferring tasks TRANSFERS: TOILET - STEP 4: Does the patient require total assistance for the toilet transfer such as the helper doing basically all the lifting? Yes. TRANSFERS: TOILET - SCORE: 1-DEP TRANSFERS: SHOWER: Activity did not occur on this shift TRANSFERS: SHOWER - SCORE: 0-UNK TRANSFERS: TUB: Activity did not occur on this shift TRANSFERS: TUB - SCORE: 0-UNK LOCOMOTION: WALK: Activity did not occur on this shift LOCOMOTION: WALK - SCORE: 0-UNK LOCOMOTION: WHEELCHAIR: Activity did not occur on this shift LOCOMOTION: WHEELCHAIR - SCORE: 0-UNK COMPREHENSION: COMPREHENSION: TYPE: Both COMPREHENSION - STEP 1: Does the patient require help from a person or device, or need extra time to understand complex and a bstract ideas (such as current events, finances, discharge planning, medical issues, relationships, e tc)? No. COMPREHENSION - STEP 2: Does the patient need extra time, require an assistive device (such as glasses for visual comprehensi on or a hearing aid for auditory comprehension) or does s/he have mild difficulty understanding compl ex and abstract information? Yes. COMPREHENSION - SCORE: 6-ROBBY EXPRESSION EXPRESSION: TYPE: Both EXPRESSION - STEP 1: Does the patient require help from a person or device, or need extra time expressing complex and abst ract ideas (such as current events, finances, discharge planning, medical issues, relationships, etc) ? Yes. EXPRESSION - STEP 2: Does the patient require help to express basic necessities or ideas (such as hunger, thirst, sleep, s afety, daily schedule, room location, or discomfort) half or more of the time? No. EXPRESSION - STEP 3: How often does the patient need help to express directions and conversation about basic needs? Less t watt 10% of the time EXPRESSION - SCORE: 5-SUP SOCIAL INTERACTION: SOCIAL INTERACTION - STEP 1: Does the patient require a helper to interact with others in social and therapeutic situations? No. SOCIAL INTERACTION - STEP 2: Does the patient need extra time in social situations, OR does s/he interact with staff, other patien ts, and family members ONLY in structured environments, OR does s/he require medication for social in teraction? Yes, patient needs extra time SOCIAL INTERACTION - SCORE: 6-ROBBY PROBLEM SOLVING: PROBLEM SOLVING - STEP 1: Does the patient need help from a person or device, or need extra time to solve complex problems such as managing a checking account or confronting interpersonal problems? Yes. PROBLEM SOLVING - STEP 2: Does the patient solve basic routine problems half or more of the time? Yes. PROBLEM SOLVING - STEP 3: How often does the patient need help to solve basic routine problems? Less than 10% of the time PROBLEM SOLVING - SCORE: 5-SUP MEMORY: MEMORY - STEP 1: Does the patient need help from a person or device, or need extra time to remember frequently encount ered people, daily routines, and executing requests? Yes. MEMORY - STEP 2: How often does the patient need help to remember frequently encountered people, daily routines, and e xecuting requests? Less than 10% of the time MEMORY - SCORE: 5-SUP SIGNATURE PANEL: The following modified sections: Eating - Score, Grooming - Score, Bathing - Score, Dressing - Upper Body - Score, Dressing - Lower Body - Score, Toileting - Score, Bladder Management - Score, Bowel Man agement - Score, Transfers: Shower - Score, Transfers: Tub - Score, Locomotion: Walk - Score, Locomot ion: Wheelchair - Score, Comprehension - Score, Expression - Score, Social Interaction - Score, Probl em Solving - Score, Memory - Score, Transfers: Toilet - Score, Transfers: Bed, Chair, Wheelchair - Sc ore were [electronically] signed by Dasha Wei C.N.A. on MonAug 12 2018 15:21:51 GMT-0600 (Centra l Standard Time)
[2018-08-12] MEDS ORDERED: FLEET ENEMA ADULT PR PRN (16:07)
--- NOTE | 2018-08-12 19:08 | PN ---
Date of Progress Note: 08/12/2018 Subjective: The patient was seen this morning for followup. No new complaints or problems reported by patient except complaining of constipation and some nasal congestion. He had last bowel movement 2 days ago when he received Dulcolax suppository and MiraLAX. Objective: Vital Signs: Reviewed. HEENT: Unremarkable. Lungs: Clear to auscultation. No rhonchi or rales. Heart: Heart sounds normal. Abdomen: Soft. Bowel sounds normal. No guarding, rigidity, tenderness, or distention. Extremities: No leg edema. Laboratory Data: Chest x-ray from yesterday shows improvement in bilateral basilar infiltrate. Impression: 1.Pneumonia. 2.Stroke. 3.Debility. 4.Hypertension. 5.Constipation. Plan: We will go ahead and give Dulcolax suppository and MiraLAX per order today. His Levaquin will be changed from IV to p.o. after today's dose. We will give him some Flonase nasal spray for his na margie congestion and I will see him tomorrow for followup. DAWNA/MODL Voice ID: [id number] Report ID: [id number]
[2018-08-12] MEDS: MELATONIN 3 MG TABLET PO PRN (19:29)
[2018-08-12] MEDS: ATORVASTATIN 10 MG TAB PO SCH (19:29)
[2018-08-12] MEDS: FLUTICASONE 50MCG NASAL SPRAY NAS SCH (19:32)
[2018-08-13] MEDS: TRAMADOL HCL 50 MG TAB PO SCH ×4 (00:36→19:51)
[2018-08-13] MEDS: ALBUTEROL 2.5 MG/3 ML NEB SOL NEB SCH ×4 (01:50→20:43)
--- NOTE | 2018-08-13 01:57 | FAST ---
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 Daniel Mane M.D. ADMISSION DIAGNOSIS: - Debility 16 - Debility (16) RIGHT 6TH RIB FRCATURE. EATING: Activity did not occur on this shift EATING - SCORE: 0-UNK GROOMING: Activity did not occur on this shift GROOMING - SCORE: 0-UNK BATHING: Activity did not occur on this shift BATHING - SCORE: 0-UNK DRESSING - UPPER BODY: Patient is not dressing in public clothing ARTICLES SCORE Total number of steps: 0 DRESSING - UPPER BODY - SCORE: 0-UNK DRESSING - LOWER BODY: Patient is not dressing in public clothing ARTICLES SCORE Total number of steps: 0 DRESSING - LOWER BODY - SCORE: 0-UNK TOILETING: TOILETING - STEP 1: Does the patient require the assistance of a person or device, or need extra time with toileting? Yes . TOILETING - STEP 2: Does the patient require the assistance of a helper? Yes. TOILETING - STEP 3: How much assistance does the patient require from the helper? Hands-on assistance from the helper TOILETING - STEP 4: Of the 3 tasks: 1) Adjusting clothing prior to use, 2) Cleansing of perineal area, 3) Adjusting clot stephenie after use; How many tasks does the patient perform WITHOUT assistance of the helper? Two tasks TOILETING - SCORE: 3-MOD BLADDER MANAGEMENT: [place] removes incontinent device (Depends, pull ups, etc.); cleans the patient after accident / inco ntinent episode; and, applies new incontinent device. BLADDER MANAGEMENT - SCORE: 1-DEP BLADDER MANAGEMENT - FREQUENCY OF ACCIDENTS: BLADDER MANAGEMENT(FA) - STEP 1: How many accidents has the patient had during the current shift? 2 BOWEL MANAGEMENT: [place] removes incontinent device (depends, pull ups, etc.); cleans the patient after accident / inco ntinent episode; and, applies new device (depends, pull-ups, padding, etc.). BOWEL MANAGEMENT - SCORE: 1-DEP BOWEL MANAGEMENT - FREQUENCY OF ACCIDENTS: BOWEL MANAGEMENT(FA) - STEP 1: How many accidents has the patient had during the current shift? 1 TRANSFERS: BED, CHAIR, WHEELCHAIR: Activity did not occur on this shift TRANSFERS: BED, CHAIR, WHEELCHAIR - SCORE: 0-UNK TRANSFERS: TOILET: Activity did not occur on this shift TRANSFERS: TOILET - SCORE: 0-UNK TRANSFERS: SHOWER: Activity did not occur on this shift TRANSFERS: SHOWER - SCORE: 0-UNK TRANSFERS: TUB: Activity did not occur on this shift TRANSFERS: TUB - SCORE: 0-UNK LOCOMOTION: WALK: Activity did not occur on this shift LOCOMOTION: WALK - SCORE: 0-UNK LOCOMOTION: WHEELCHAIR: Activity did not occur on this shift LOCOMOTION: WHEELCHAIR - SCORE: 0-UNK COMPREHENSION: COMPREHENSION: TYPE: Both COMPREHENSION - STEP 1: Does the patient require help from a person or device, or need extra time to understand complex and a bstract ideas (such as current events, finances, discharge planning, medical issues, relationships, e tc)? No. COMPREHENSION - STEP 2: Does the patient need extra time, require an assistive device (such as glasses for visual comprehensi on or a hearing aid for auditory comprehension) or does s/he have mild difficulty understanding compl ex and abstract information? Yes. COMPREHENSION - SCORE: 6-ROBBY EXPRESSION EXPRESSION: TYPE: Both EXPRESSION - STEP 1: Does the patient require help from a person or device, or need extra time expressing complex and abst ract ideas (such as current events, finances, discharge planning, medical issues, relationships, etc) ? No. EXPRESSION - STEP 2: Does the patient need extra time, require an assistive device (such as augmentive communication syste m or a communication board), OR does s/he have mild difficulty expressing complex and abstract ideas (including mild dysarthria or mild word-find problems)? Yes. EXPRESSION - SCORE: 6-ROBBY SOCIAL INTERACTION: SOCIAL INTERACTION - STEP 1: Does the patient require a helper to interact with others in social and therapeutic situations? No. SOCIAL INTERACTION - STEP 2: Does the patient need extra time in social situations, OR does s/he interact with staff, other patien ts, and family members ONLY in structured environments, OR does s/he require medication for social in teraction? Yes, patient needs extra time SOCIAL INTERACTION - SCORE: 6-ROBBY PROBLEM SOLVING: PROBLEM SOLVING - STEP 1: Does the patient need help from a person or device, or need extra time to solve complex problems such as managing a checking account or confronting interpersonal problems? Yes. PROBLEM SOLVING - STEP 2: Does the patient solve basic routine problems half or more of the time? Yes. PROBLEM SOLVING - STEP 3: How often does the patient need help to solve basic routine problems? 10%-24% of the time PROBLEM SOLVING - SCORE: 4-MIN MEMORY: MEMORY - STEP 1: Does the patient need help from a person or device, or need extra time to remember frequently encount ered people, daily routines, and executing requests? No. MEMORY - STEP 2: Does the patient have slight difficulty recognizing frequently encountered people, daily routines, or executing requests without the need for repetition or using self-initiated or environmental cues to remember? Yes. MEMORY - SCORE: 6-ROBBY SIGNATURE PANEL: The following modified sections: Eating - Score, Grooming - Score, Dressing - Upper Body - Score, Joseph ssing - Lower Body - Score, Toileting - Score, Bladder Management - Score, Bowel Management - Score, Transfers: Bed, Chair, Wheelchair - Score, Transfers: Toilet - Score, Transfers: Shower - Score, Gupta sfers: Tub - Score, Locomotion: Walk - Score, Locomotion: Wheelchair - Score, Comprehension - Score, Expression - Score, Social Interaction - Score, Problem Solving - Score, Memory - Score were [electro nically] signed by Isabela Arshad CNA on MonAug 13 2018 01:56:17 GMT-0600 (Central Standard Time)
[2018-08-13] MEDS: HYDROCODONE/APAP 5/325 MG TAB PO PRN ×3 (04:25→15:58)
[2018-08-13] MEDS: FLUTICASONE 50MCG NASAL SPRAY NAS SCH ×2 (07:34→19:57)
[2018-08-13] MEDS: RAMIPRIL 5 MG CAP PO SCH ×2 (07:35→19:57)
[2018-08-13] MEDS: GABAPENTIN 300 MG CAP PO SCH ×2 (07:35→19:52)
[2018-08-13] MEDS: ENOXAPARIN 40 MG/0.4 ML SQ SCH (07:35)
[2018-08-13] MEDS: AMLODIPINE 5 MG TAB PO SCH ×2 (07:35→19:51)
[2018-08-13] MEDS: hydroCHLOROthiazide 12.5 MG CAP PO SCH (07:35)
[2018-08-13] MEDS: LIDOCAINE 5% PATCH TOP SCH (07:35)
[2018-08-13] MEDS: DOCUSATE NA 100 MG CAP PO SCH ×2 (07:36→19:53)
[2018-08-13] MEDS: MECLIZINE HCL 12.5 MG TAB PO SCH ×2 (07:36→19:53)
[2018-08-13] MEDS: ASPIRIN EC 81 MG TAB PO SCH (07:36)
[2018-08-13] MEDS: ESCITALOPRAM 20 MG TAB PO SCH (07:36)
[2018-08-13] MEDS: levoFLOXacin 500 MG TAB PO SCH (07:36)
--- NOTE | 2018-08-13 10:36 | FAST ---
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 Daniel Mane M.D. ADMISSION DIAGNOSIS: - Debility 16 - Debility (16) RIGHT 6TH RIB FRCATURE. EATING: Activity did not occur on this shift EATING - SCORE: 0-UNK GROOMING: Activity did not occur on this shift GROOMING - SCORE: 0-UNK BATHING: Activity did not occur on this shift BATHING - SCORE: 0-UNK DRESSING - UPPER BODY: Activity did not occur on this shift Patient is not dressing in public clothing ARTICLES SCORE Total number of steps: 0 DRESSING - UPPER BODY - SCORE: 0-UNK DRESSING - LOWER BODY: Activity did not occur on this shift Patient is not dressing in public clothing ARTICLES SCORE Total number of steps: 0 DRESSING - LOWER BODY - SCORE: 0-UNK TOILETING: Activity did not occur on this shift TOILETING - SCORE: 0-UNK BLADDER MANAGEMENT: Activity did not occur on this shift BLADDER MANAGEMENT - SCORE: 7-IND BOWEL MANAGEMENT: Activity did not occur on this shift BOWEL MANAGEMENT - SCORE: 7-IND TRANSFERS: BED, CHAIR, WHEELCHAIR: TRANSFERS: BED, CHAIR, WHEELCHAIR - STEP 1: Does the patient require assistance of a person or device, or need extra time with bed, chair, or whe elchair transfers? Yes. TRANSFERS: BED, CHAIR, WHEELCHAIR - STEP 2: Does the patient require the assistance of a helper? Yes. TRANSFERS: BED, CHAIR, WHEELCHAIR - STEP 3: How much assistance does the patient require from the helper? Lifting of the patient TRANSFERS: BED, CHAIR, WHEELCHAIR - STEP 4: Does the helper lift the patient ONLY up? ONLY down? Up AND Down? ONLY up. TRANSFERS: BED, CHAIR, WHEELCHAIR - SCORE: 3-MOD TRANSFERS: TOILET: Activity did not occur on this shift TRANSFERS: TOILET - SCORE: 0-UNK TRANSFERS: SHOWER: Activity did not occur on this shift TRANSFERS: SHOWER - SCORE: 0-UNK TRANSFERS: TUB: Activity did not occur on this shift TRANSFERS: TUB - SCORE: 0-UNK LOCOMOTION: WALK: LOCOMOTION: WALK - STEP 1: Does the patient need help from a person or device, or need extra time to walk 150 feet? Yes. LOCOMOTION: WALK - STEP 2: How much assistance does the patient require to walk a minimum of 150 feet? Patient walks less than 1 50 feet - but more than 50 feet - with the assistance of only one helper LOCOMOTION: WALK - SCORE: 2-MAX LOCOMOTION: WHEELCHAIR: Activity did not occur on this shift LOCOMOTION: WHEELCHAIR - SCORE: 0-UNK LOCOMOTION: STAIRS: Activity did not occur on this shift LOCOMOTION: STAIRS - SCORE: 0-UNK COMPREHENSION: COMPREHENSION - SCORE: 0-UNK EXPRESSION EXPRESSION - SCORE: 0-UNK SOCIAL INTERACTION: SOCIAL INTERACTION - SCORE: 0-UNK PROBLEM SOLVING: PROBLEM SOLVING - SCORE: 0-UNK MEMORY: MEMORY - SCORE: 0-UNK SIGNATURE PANEL: The following modified sections: Transfers: Bed, Chair, Wheelchair - Score, Transfers: Toilet - Score , Locomotion: Walk - Score, Locomotion: Wheelchair - Score, Locomotion: Stairs - Score were [electron gerard] signed by Jacky Santoro PT on MonAug 13 2018 10:35:08 GMT-0600 (Central Standard Time)
--- NOTE | 2018-08-13 10:37 | FAST ---
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 Daniel Mane M.D. ADMISSION DIAGNOSIS: - Debility 16 - Debility (16) RIGHT 6TH RIB FRCATURE. EATING: Activity did not occur on this shift EATING - SCORE: 0-UNK GROOMING: Activity did not occur on this shift GROOMING - SCORE: 0-UNK BATHING: Activity did not occur on this shift BATHING - SCORE: 0-UNK DRESSING - UPPER BODY: Activity did not occur on this shift Patient is not dressing in public clothing ARTICLES SCORE Total number of steps: 0 DRESSING - UPPER BODY - SCORE: 0-UNK DRESSING - LOWER BODY: Activity did not occur on this shift Patient is not dressing in public clothing ARTICLES SCORE Total number of steps: 0 DRESSING - LOWER BODY - SCORE: 0-UNK TOILETING: Activity did not occur on this shift TOILETING - SCORE: 0-UNK BLADDER MANAGEMENT: Activity did not occur on this shift BLADDER MANAGEMENT - SCORE: 7-IND BOWEL MANAGEMENT: Activity did not occur on this shift BOWEL MANAGEMENT - SCORE: 7-IND TRANSFERS: BED, CHAIR, WHEELCHAIR: TRANSFERS: BED, CHAIR, WHEELCHAIR - STEP 1: Does the patient require assistance of a person or device, or need extra time with bed, chair, or whe elchair transfers? Yes. TRANSFERS: BED, CHAIR, WHEELCHAIR - STEP 2: Does the patient require the assistance of a helper? Yes. TRANSFERS: BED, CHAIR, WHEELCHAIR - STEP 3: How much assistance does the patient require from the helper? Lifting of the patient TRANSFERS: BED, CHAIR, WHEELCHAIR - STEP 4: Does the helper lift the patient ONLY up? ONLY down? Up AND Down? ONLY up. TRANSFERS: BED, CHAIR, WHEELCHAIR - SCORE: 3-MOD TRANSFERS: TOILET: Activity did not occur on this shift TRANSFERS: TOILET - SCORE: 0-UNK TRANSFERS: SHOWER: Activity did not occur on this shift TRANSFERS: SHOWER - SCORE: 0-UNK TRANSFERS: TUB: Activity did not occur on this shift TRANSFERS: TUB - SCORE: 0-UNK LOCOMOTION: WALK: LOCOMOTION: WALK - STEP 1: Does the patient need help from a person or device, or need extra time to walk 150 feet? Yes. LOCOMOTION: WALK - STEP 2: How much assistance does the patient require to walk a minimum of 150 feet? Patient walks less than 1 50 feet - but more than 50 feet - with the assistance of only one helper LOCOMOTION: WALK - SCORE: 2-MAX LOCOMOTION: WHEELCHAIR: LOCOMOTION: WHEELCHAIR - STEP 1: Does the patient need help to go 150 feet in a wheelchair? Yes. LOCOMOTION: WHEELCHAIR - STEP 2: How much assistance does the patient need from the helper? Only supervision, cuing, or coaxing LOCOMOTION: WHEELCHAIR - SCORE: 5-SUP LOCOMOTION: STAIRS: Activity did not occur on this shift LOCOMOTION: STAIRS - SCORE: 0-UNK COMPREHENSION: COMPREHENSION - SCORE: 0-UNK EXPRESSION EXPRESSION - SCORE: 0-UNK SOCIAL INTERACTION: SOCIAL INTERACTION - SCORE: 0-UNK PROBLEM SOLVING: PROBLEM SOLVING - SCORE: 0-UNK MEMORY: MEMORY - SCORE: 0-UNK SIGNATURE PANEL: The following modified sections: Transfers: Bed, Chair, Wheelchair - Score, Transfers: Toilet - Score , Locomotion: Walk - Score, Locomotion: Wheelchair - Score, Locomotion: Stairs - Score were [electron gerard] signed by Jacky Santoro PT on MonAug 13 2018 10:36:11 GMT-0600 (Central Standard Time)
--- NOTE | 2018-08-13 10:47 | FAST ---
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 Daniel Mane M.D. ADMISSION DIAGNOSIS: - Debility 16 - Debility (16) RIGHT 6TH RIB FRCATURE. EATING: Activity did not occur on this shift EATING - SCORE: 0-UNK GROOMING: Oral care Wash, rinse, and dry face Wash, rinse, and dry hands GROOMING - STEP 1: Does the patient require the assistance of a person or device, or need extra time when grooming? Yes. GROOMING - STEP 2: Does the patient require the assistance of a helper? Yes. GROOMING - STEP 3: How much assistance does the patient require from the helper? Incidental touching assistance from the helper while grooming GROOMING - SCORE: 4-MIN BATHING: Abdomen Buttocks Chest Left arm Left lower leg and foot Left upper leg Perineal area Right arm Right lower leg and foot Right upper leg BATHING - STEP 1: Does the patient require the assistance of a person or device, or need extra time when bathing? Yes. BATHING - STEP 2: Does the patient require the assistance of a helper? Yes. BATHING - STEP 3: How much assistance does the patient require from the helper? More than just incidental help BATHING - STEP 4: What percent of the body parts did the patient bathe WITHOUT the helper? Less than half of the body p arts BATHING - SCORE: 2-MAX DRESSING - UPPER BODY: T-shirt/pullover shirt (four steps) ARTICLES SCORE Total number of steps: 4 DRESSING - UPPER BODY - STEP 1: Does the patient require help from a person or device, or need extra time when dressing above the meek st? Yes. DRESSING - UPPER BODY - STEP 2: Does the patient require the assistance of a helper? Yes. DRESSING - UPPER BODY - STEP 3: Does the helper touch the patient while dressing? Yes. DRESSING - UPPER BODY - STEP 4: How many of the total steps does the patient complete on his/her own? 0 DRESSING - UPPER BODY - STEP 5: Does Patient require total assistance for dressing above the waist such as the helper holding clothin g and performing basically all the activities? Yes. DRESSING - UPPER BODY - SCORE: 1-DEP DRESSING - LOWER BODY: Elastic waist pants (three steps) Sock - Left foot (one step) Sock - Right foot (one step) Tied or buckled shoe - Left foot (two steps) Tied or buckled shoe - Right foot (two steps) Underwear (three steps) ARTICLES SCORE Total number of steps: 12 DRESSING - LOWER BODY - STEP 1: Does the patient require help from a person or device, or need extra time when dressing below the meek st? Yes. DRESSING - LOWER BODY - STEP 2: Does the patient require the assistance of a helper? Yes. DRESSING - LOWER BODY - STEP 3: Does the helper touch the patient while dressing? Yes. DRESSING - LOWER BODY - STEP 4: How many of the total steps does the patient complete on his/her own? 0 DRESSING - LOWER BODY - STEP 5: Does patient require total assistance for dressing below the waist such as the helper holding clothin g and performing basically all the activities? Yes. DRESSING - LOWER BODY - SCORE: 1-DEP TOILETING: Activity did not occur on this shift TOILETING - SCORE: 0-UNK BLADDER MANAGEMENT: Activity did not occur on this shift BLADDER MANAGEMENT - SCORE: 7-IND BOWEL MANAGEMENT: Activity did not occur on this shift BOWEL MANAGEMENT - SCORE: 7-IND TRANSFERS: BED, CHAIR, WHEELCHAIR: Activity did not occur on this shift TRANSFERS: BED, CHAIR, WHEELCHAIR - SCORE: 0-UNK TRANSFERS: TOILET: Activity did not occur on this shift TRANSFERS: TOILET - SCORE: 0-UNK TRANSFERS: SHOWER: More than one helper is required for shower transfer TRANSFERS: SHOWER - SCORE: 1-DEP TRANSFERS: TUB: Activity did not occur on this shift TRANSFERS: TUB - SCORE: 0-UNK LOCOMOTION: WALK: Activity did not occur on this shift LOCOMOTION: WALK - SCORE: 0-UNK LOCOMOTION: WHEELCHAIR: Activity did not occur on this shift LOCOMOTION: WHEELCHAIR - SCORE: 0-UNK LOCOMOTION: STAIRS: Activity did not occur on this shift LOCOMOTION: STAIRS - SCORE: 0-UNK COMPREHENSION: COMPREHENSION: TYPE: Both COMPREHENSION - STEP 1: Does the patient require help from a person or device, or need extra time to understand complex and a bstract ideas (such as current events, finances, discharge planning, medical issues, relationships, e tc)? Yes. COMPREHENSION - STEP 2: Does the patient require help to understand questions or statements about basic needs or ideas (such as hunger, thirst, sleep, safety, daily schedule, room location, or discomfort) half or more of the t madeleine? No. COMPREHENSION - STEP 3: How often does the patient need help to understand directions and conversation about basic needs? Les s than 10% of the time COMPREHENSION - SCORE: 5-SUP EXPRESSION EXPRESSION: TYPE: Both EXPRESSION - STEP 1: Does the patient require help from a person or device, or need extra time expressing complex and abst ract ideas (such as current events, finances, discharge planning, medical issues, relationships, etc) ? Yes. EXPRESSION - STEP 2: Does the patient require help to express basic necessities or ideas (such as hunger, thirst, sleep, s afety, daily schedule, room location, or discomfort) half or more of the time? No. EXPRESSION - STEP 3: How often does the patient need help to express directions and conversation about basic needs? Less t watt 10% of the time EXPRESSION - SCORE: 5-SUP SOCIAL INTERACTION: SOCIAL INTERACTION - STEP 1: Does the patient require a helper to interact with others in social and therapeutic situations? Yes. SOCIAL INTERACTION - STEP 2: Does the patient interact appropriately half or more of the time? Yes. SOCIAL INTERACTION - STEP 3: How often does the patient need help to interact appropriately? Less than 10% of the time SOCIAL INTERACTION - SCORE: 5-SUP PROBLEM SOLVING: PROBLEM SOLVING - STEP 1: Does the patient need help from a person or device, or need extra time to solve complex problems such as managing a checking account or confronting interpersonal problems? Yes. PROBLEM SOLVING - STEP 2: Does the patient solve basic routine problems half or more of the time? Yes. PROBLEM SOLVING - STEP 3: How often does the patient need help to solve basic routine problems? 10%-24% of the time PROBLEM SOLVING - SCORE: 4-MIN MEMORY: MEMORY - STEP 1: Does the patient need help from a person or device, or need extra time to remember frequently encount ered people, daily routines, and executing requests? Yes. MEMORY - STEP 2: How often does the patient need help to remember frequently encountered people, daily routines, and e xecuting requests? 10% - 24% of the time MEMORY - SCORE: 4-MIN SIGNATURE PANEL: The following modified sections: Eating - Score, Grooming - Score, Bathing - Score, Dressing - Upper Body - Score, Dressing - Lower Body - Score, Toileting - Score, Transfers: Bed, Chair, Wheelchair - S core, Transfers: Toilet - Score, Transfers: Tub - Score, Transfers: Shower - Score, Comprehension - S core, Expression - Score, Social Interaction - Score, Problem Solving - Score, Memory - Score were [e lectronically] signed by Melissa Shelton OT on MonAug 13 2018 10:47:08 T-0600 (Central Standard T madeleine)
--- NOTE | 2018-08-13 13:21 | FAST ---
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 Daniel Mane M.D. ADMISSION DIAGNOSIS: - Debility 16 - Debility (16) RIGHT 6TH RIB FRCATURE. EATING: EATING - STEP 1: Does the patient require the assistance of a person or device, or need extra time when eating? Yes. EATING - STEP 2: Does the patient require the assistance of a helper? No, patient only requires an assistive device, O R s/he takes more than reasonable time to eat, OR there is a safety concern, OR s/he requires modifie d food consistency EATING - SCORE: 6-ROBBY GROOMING: GROOMING - STEP 1: Does the patient require the assistance of a person or device, or need extra time when grooming? Yes. GROOMING - STEP 2: Does the patient require the assistance of a helper? No. The patient only requires an assistive devic e, OR takes more than reasonable time to groom, OR there is a concern for safety as the patient groom s GROOMING - SCORE: 6-ROBBY BATHING: Activity did not occur on this shift BATHING - SCORE: 0-UNK DRESSING - UPPER BODY: Activity did not occur on this shift ARTICLES SCORE Total number of steps: 0 DRESSING - UPPER BODY - SCORE: 0-UNK DRESSING - LOWER BODY: Activity did not occur on this shift ARTICLES SCORE Total number of steps: 0 DRESSING - LOWER BODY - SCORE: 0-UNK TOILETING: TOILETING - STEP 1: Does the patient require the assistance of a person or device, or need extra time with toileting? Yes . TOILETING - STEP 2: Does the patient require the assistance of a helper? Yes. TOILETING - STEP 3: How much assistance does the patient require from the helper? Hands-on assistance from the helper TOILETING - STEP 4: Of the 3 tasks: 1) Adjusting clothing prior to use, 2) Cleansing of perineal area, 3) Adjusting clot stephenie after use; How many tasks does the patient perform WITHOUT assistance of the helper? One task TOILETING - SCORE: 2-MAX BLADDER MANAGEMENT: BLADDER MANAGEMENT - STEP 1: Does the patient control the bladder completely and intentionally without equipment or devices or med ications, and is always continent? No. BLADDER MANAGEMENT - STEP 2: Does the patient require the assistance of a helper? No, patient requires and independently uses an a ssistive device, such as a urinal, bedpan, bedside commode, catheter, absorbent pad, or collecting de vice BLADDER MANAGEMENT - SCORE: 6-ROBBY BLADDER MANAGEMENT - FREQUENCY OF ACCIDENTS: BLADDER MANAGEMENT(FA) - STEP 1: How many accidents has the patient had during the current shift? 1 BOWEL MANAGEMENT: Activity did not occur on this shift BOWEL MANAGEMENT - SCORE: 7-IND TRANSFERS: BED, CHAIR, WHEELCHAIR: TRANSFERS: BED, CHAIR, WHEELCHAIR - STEP 1: Does the patient require assistance of a person or device, or need extra time with bed, chair, or whe elchair transfers? Yes. TRANSFERS: BED, CHAIR, WHEELCHAIR - STEP 2: Does the patient require the assistance of a helper? Yes. TRANSFERS: BED, CHAIR, WHEELCHAIR - STEP 3: How much assistance does the patient require from the helper? Lifting of the patient TRANSFERS: BED, CHAIR, WHEELCHAIR - STEP 4: Does the helper lift the patient ONLY up? ONLY down? Up AND Down? ONLY up. TRANSFERS: BED, CHAIR, WHEELCHAIR - SCORE: 3-MOD TRANSFERS: TOILET: TRANSFERS: TOILET - STEP 1: Does the patient require the assistance of a person or device, or need extra time with toilet transfe rs? Yes. TRANSFERS: TOILET - STEP 2: Does the patient require the assistance of a helper? Yes. TRANSFERS: TOILET - STEP 3: How much assistance does the patient require from the helper? Patient performs half or more of the tr ansferring tasks TRANSFERS: TOILET - STEP 4: Does the patient need only incidental help such as contact guard or steadying during toilet transfer? No. Patient needs more than incidental help TRANSFERS: TOILET - SCORE: 3-MOD TRANSFERS: SHOWER: Activity did not occur on this shift TRANSFERS: SHOWER - SCORE: 0-UNK TRANSFERS: TUB: Activity did not occur on this shift TRANSFERS: TUB - SCORE: 0-UNK LOCOMOTION: WALK: Activity did not occur on this shift LOCOMOTION: WALK - SCORE: 0-UNK LOCOMOTION: WHEELCHAIR: Activity did not occur on this shift LOCOMOTION: WHEELCHAIR - SCORE: 0-UNK COMPREHENSION: COMPREHENSION: TYPE: Both COMPREHENSION - STEP 1: Does the patient require help from a person or device, or need extra time to understand complex and a bstract ideas (such as current events, finances, discharge planning, medical issues, relationships, e tc)? No. COMPREHENSION - STEP 2: Does the patient need extra time, require an assistive device (such as glasses for visual comprehensi on or a hearing aid for auditory comprehension) or does s/he have mild difficulty understanding compl ex and abstract information? Yes. COMPREHENSION - SCORE: 6-ROBBY EXPRESSION EXPRESSION: TYPE: Both EXPRESSION - STEP 1: Does the patient require help from a person or device, or need extra time expressing complex and abst ract ideas (such as current events, finances, discharge planning, medical issues, relationships, etc) ? No. EXPRESSION - STEP 2: Does the patient need extra time, require an assistive device (such as augmentive communication syste m or a communication board), OR does s/he have mild difficulty expressing complex and abstract ideas (including mild dysarthria or mild word-find problems)? Yes. EXPRESSION - SCORE: 6-ROBBY SOCIAL INTERACTION: SOCIAL INTERACTION - STEP 1: Does the patient require a helper to interact with others in social and therapeutic situations? No. SOCIAL INTERACTION - STEP 2: Does the patient need extra time in social situations, OR does s/he interact with staff, other patien ts, and family members ONLY in structured environments, OR does s/he require medication for social in teraction? Yes, patient needs extra time SOCIAL INTERACTION - SCORE: 6-ROBBY PROBLEM SOLVING: PROBLEM SOLVING - STEP 1: Does the patient need help from a person or device, or need extra time to solve complex problems such as managing a checking account or confronting interpersonal problems? No. PROBLEM SOLVING - STEP 2: Does the patient require extra time to make decisions or solve problems, OR does s/he have slight dif ficulty reading, initiating, or self-correcting in unfamiliar situations? Yes, patient needs extra ti me. PROBLEM SOLVING - SCORE: 6-ROBBY MEMORY: MEMORY - STEP 1: Does the patient need help from a person or device, or need extra time to remember frequently encount ered people, daily routines, and executing requests? No. MEMORY - STEP 2: Does the patient have slight difficulty recognizing frequently encountered people, daily routines, or executing requests without the need for repetition or using self-initiated or environmental cues to remember? Yes. MEMORY - SCORE: 6-ROBBY SIGNATURE PANEL: The following modified sections: Eating - Score, Grooming - Score, Bathing - Score, Dressing - Upper Body - Score, Dressing - Lower Body - Score, Toileting - Score, Bladder Management - Score, Bowel Man agement - Score, Transfers: Bed, Chair, Wheelchair - Score, Transfers: Toilet - Score, Transfers: Kayla wer - Score, Transfers: Tub - Score, Locomotion: Walk - Score, Locomotion: Wheelchair - Score, Compre hension - Score, Expression - Score, Social Interaction - Score, Problem Solving - Score, Memory - Sc ore were [electronically] signed by Cali Barron on MonAug 13 2018 13:20:53 GMT-0600 (Central Standard Time)
[2018-08-13] MEDS: MELATONIN 3 MG TABLET PO PRN (19:54)
[2018-08-13] MEDS: ATORVASTATIN 10 MG TAB PO SCH (19:59)
--- NOTE | 2018-08-13 22:27 | R.PN ---
ENCOUNTER DATE AND TIME: 08/13/2018 22:19 (IRON PILER) NAME ELSIE MENDOZA DATE OF : 1950 DATE OF ADMISSION: 08/08/2018 16:18 (IRON PILER) RIGHT 6TH RIB FRCATURECHIEF COMPLAINT: Rib fracture SUBJECTIVE: Pt denied any depression. Pt denied any Shortness of Breath. Propelled wheelchair 250' with standby assistance. VITAL SIGNS Temperature: 98.1 F SBP/DBP: 132/69 Pulse: 75 Resp: 16 MEDICATION ALLERGIES: Sulfa ENVIRONMENTAL ALLERGIES: None Known - Substance Allergies None Known - Other Allergies None Known NURSING: - Shower allowing shower ACTIVITIES OOB only with supervision THERAPIES: - Occupational Therapy Evaluate and Treat. - Physical Therapy Evaluate and Treat. PHYSICAL EXAM - Gen Alert and awake Lying in bed No apparent distress Oriented to: person, time, and place - Skin No breakdown No abnormalities - Eyes No abnormalities - ENMT No abnormalities - Neck No abnormalities - CVS RRR - Chest No abnormalities - Resp Clear to auscultation - Abd + bowel sounds - GI Soft Deferred - No abnormalities - Ext Mild bilateral lower extremity edema. - MSK 4+/5 weakness in both lower extremities. - Neuro No focal deficits - Psych No abnormalities ASSESSMENT: Pt. is a 68 yo Right-handed white male.On 08/03/2018 he was admitted to [facility] [place] with diagnosis RIGHT 6TH RIB FRCATURE.His impairment category is Debility 16 - Debility (16).Pre -morbidly, Pt. was independent/mod-I in Sphincter Control, Transfers Control, Communication, Social C ognition, Self-Care, and Locomotion; and he had good Sphincter Control.Currently, he has deficits of Safety Awareness, Transfers Control, Balance, Self-Care, Locomotion, and Endurance.Pt. is now referre d to [facility] for acute in-patient rehabilitation in order to maximize patie nt's functional independence in activities of daily living, strength, ROM, and mobility.- Rehab Goal Patient has realistic goal of being discharged at assistance level 6-Henny to reside at Home with Fam liana/Relatives. MDM/PLAN: - Physical Therapy Gait dysfunction - to improve, our physical therapists will perform initial evaluation of pt's statu s upon admission and devise an individualized program for Gait Training, and Wheel Chair mobility Inability to transfer - to improve, our physical therapists will perform initial evaluation of pt's status upon admission and devise an individualized program for Bed mobility Need for home safety evaluation - to improve, our physical therapists will perform initial evaluatio n of pt's status upon admission and devise an individualized program for Home Evaluation Need in caregiver upon discharge - to improve, our physical therapists will perform initial evaluati on of pt's status upon admission and devise an individualized program for Caregiver Training New precaution - to improve, our physical therapists will perform initial evaluation of pt's status upon admission and devise an individualized program for Patient precaution education Edema - to improve, our physical therapists will perform initial evaluation of pt's status upon admis tramaine and devise an individualized program for Elevation Training, and Lymphedema Therapy Poor balance - to improve, our physical therapists will perform initial evaluation of pt's status up on admission and devise an individualized program for Balance Training Poor endurance - to improve, our physical therapists will perform initial evaluation of pt's status upon admission and devise an individualized program for Endurance Training Weakness - to improve, our physical therapists will perform initial evaluation of pt's status upon a dmission and devise an individualized program for Aquatic Therapy, Neuromuscular Reeducation, and Str engthening Achieving independence - to improve, our physical therapists will perform initial evaluation of pt's status upon admission and devise an individualized program for Community Reintegration Activities - Occupational Therapy ADL deficits - to improve, our occupation therapists will perform initial evaluation of pt's status upon admission and devise an individualized program for Bathing, Bed mobility, Community Reintegratio n, Cooking, Dressing, Eating, Fine Motor Skills, Grooming, Homemaking, Kitchen Mobility, Laundry, Pat ient Education, Safety Awareness, Splinting - Positioning, Transfers(Toilet, Tub, Shower), and Wheel Chair Management Need for critical care technician - to improve, our occupation therapists will perform initial evaluation of pt's status upon admission and devise an individualized program for Caregiver Training Weakness - to improve, our occupation therapists will perform initial evaluation of pt's status upon admission and devise an individualized program for Aquatic Therapy, Balance, Endurance, UE ROM, and UE strengthening - Diet Type Continue Heart Healthy - Diet - Liquid Texture Continue Regular - Tube Feed Continue N/A - Diet - Solid Texture Continue Regular - Shower allowing shower FUNCTIONAL STATUS: UPDATED AT WEEKLY TEAM CONFERENCE - Bladder Same accident frequency: 7-Ind - No accidents in the past 7 days - Bowel Same accident frequency: 7-Ind - No accidents in the past 7 days - Walking Same score based on distance walked: 1(<=50ft) - Wheelchair Same score based on distance traveled: 0(N/A) FUNCTIONAL STATUS: - Self-Care A. Eating sup B. Grooming Henny C. Bathing Ruddy D. Dressing - Upper Ruddy E. Dressing - Lower Ruddy F. Toileting modA - Sphincter Control G: Bladder control Ind H: Bowel control Ind - Transfers Control I. Bed/Chair/Wheelchair maxA J. Toilet maxA K. Tub/Shower ADNO - Locomotion L. Walk/Wheelchair (C) modA L. Walk/Wheelchair (W) modA M. Stairs ADNO - Communication N. Comprehension (B) Ind O. Expression (B) Ind - Social Cognition P. Social Interaction Ind Q. Problem Solving Ind R. Memory Ind - Endurance Fair - Balance Fair - Safety Awareness Fair CURRENT FUNC. DEFICITS: Safety Awareness, Transfers Control, Balance, Self-Care, Locomotion, and Endurance SIGNATURE PANEL: (IRON PILER)
[2018-08-14] MEDS: TRAMADOL HCL 50 MG TAB PO SCH ×4 (00:45→20:20)
--- NOTE | 2018-08-14 01:12 | PN ---
Date of Progress Note: 08/13/2018 Subjective: The patient was seen this morning for followup. He was sitting in the wheelchair. Brenton ed any new complaints. Had a bowel movement yesterday. Objective: Vital Signs: Reviewed. HEENT: Unremarkable. Lungs: Clear to auscultation. Heart: Sounds normal. Abdomen: Soft. Bowel sounds normal. No guarding, rigidity, tenderness, or distention. Extremities: No leg edema. Impression: 1.Pneumonia. 2.Stroke with another stroke. 3.Hypertension. 4.Constipation. Plan: We will continue current medication. Continue current antibiotic which is Levaquin 500 mg p.o . daily. Continue physical therapy under guidance of Dr. Mane. I will see him tomorrow for crystal coley. DAWNA/MODL Voice ID: [id number] Report ID: [id number]
[2018-08-14] MEDS: ALBUTEROL 2.5 MG/3 ML NEB SOL NEB SCH ×4 (01:24→20:30)
[2018-08-14] MEDS: IPRATROPIUM BROM 0.5MG/2.5ML NEB PRN ×2 (01:24→08:50)
--- NOTE | 2018-08-14 01:42 | FAST ---
SHIFT START DATE/TIME: 08/13/2018 19:00 (TOMBSTONE POLISHER) SHIFT END DATE/TIME: 08/14/2018 07:00 (TOMBSTONE POLISHER) NAME ELSIE MENDOZA DATE OF : 1950 DATE OF ADMISSION: 08/08/2018 16:18 (TOMBSTONE POLISHER) PHONE: AGE: 68 SSN# [id number] GENDER: Male ENCOUNTER PHYSICIAN: Dr. Daniel Mane M.D. ADMISSION DIAGNOSIS: - Debility 16 - Debility (16) RIGHT 6TH RIB FRCATURE. EATING: Activity did not occur on this shift EATING - SCORE: 0-UNK GROOMING: Activity did not occur on this shift GROOMING - SCORE: 0-UNK BATHING: Activity did not occur on this shift BATHING - SCORE: 0-UNK DRESSING - UPPER BODY: Patient is not dressing in public clothing ARTICLES SCORE Total number of steps: 0 DRESSING - UPPER BODY - SCORE: 0-UNK DRESSING - LOWER BODY: Patient is not dressing in public clothing ARTICLES SCORE Total number of steps: 0 DRESSING - LOWER BODY - SCORE: 0-UNK TOILETING: TOILETING - STEP 1: Does the patient require the assistance of a person or device, or need extra time with toileting? Yes . TOILETING - STEP 2: Does the patient require the assistance of a helper? Yes. TOILETING - STEP 3: How much assistance does the patient require from the helper? Hands-on assistance from the helper TOILETING - STEP 4: Of the 3 tasks: 1) Adjusting clothing prior to use, 2) Cleansing of perineal area, 3) Adjusting clot stephenie after use; How many tasks does the patient perform WITHOUT assistance of the helper? No tasks; h kandace performs all three tasks TOILETING - SCORE: 1-DEP BLADDER MANAGEMENT: [place] removes incontinent device (Depends, pull ups, etc.); cleans the patient after accident / inco ntinent episode; and, applies new incontinent device. BLADDER MANAGEMENT - SCORE: 1-DEP BOWEL MANAGEMENT: BOWEL MANAGEMENT - STEP 1: Does the patient control bowels completely and intentionally without equipment devices or medications AND is always continent? No. BOWEL MANAGEMENT - STEP 2: Does the patient require the assistance of a helper? Yes. BOWEL MANAGEMENT - STEP 3: How much assistance does the patient require from the helper? Patient requires maximal assistance - p erforms 25% to 49 % of bowel management tasks BOWEL MANAGEMENT - SCORE: 2-MAX TRANSFERS: BED, CHAIR, WHEELCHAIR: Patient requires more than one helper and/or the use of a mechanical lift is utilized TRANSFERS: BED, CHAIR, WHEELCHAIR - SCORE: 1-DEP TRANSFERS: TOILET: Patient requires more than one helper and/or the use of a mechanical lift is utilized TRANSFERS: TOILET - SCORE: 1-DEP TRANSFERS: SHOWER: Activity did not occur on this shift TRANSFERS: SHOWER - SCORE: 0-UNK TRANSFERS: TUB: Activity did not occur on this shift TRANSFERS: TUB - SCORE: 0-UNK LOCOMOTION: WALK: Activity did not occur on this shift LOCOMOTION: WALK - SCORE: 0-UNK LOCOMOTION: WHEELCHAIR: Activity did not occur on this shift LOCOMOTION: WHEELCHAIR - SCORE: 0-UNK COMPREHENSION: COMPREHENSION: TYPE: Both COMPREHENSION - STEP 1: Does the patient require help from a person or device, or need extra time to understand complex and a bstract ideas (such as current events, finances, discharge planning, medical issues, relationships, e tc)? No. COMPREHENSION - STEP 2: Does the patient need extra time, require an assistive device (such as glasses for visual comprehensi on or a hearing aid for auditory comprehension) or does s/he have mild difficulty understanding compl ex and abstract information? Yes. COMPREHENSION - SCORE: 6-ROBBY EXPRESSION EXPRESSION: TYPE: Both EXPRESSION - STEP 1: Does the patient require help from a person or device, or need extra time expressing complex and abst ract ideas (such as current events, finances, discharge planning, medical issues, relationships, etc) ? No. EXPRESSION - STEP 2: Does the patient need extra time, require an assistive device (such as augmentive communication syste m or a communication board), OR does s/he have mild difficulty expressing complex and abstract ideas (including mild dysarthria or mild word-find problems)? Yes. EXPRESSION - SCORE: 6-ROBBY SOCIAL INTERACTION: SOCIAL INTERACTION - STEP 1: Does the patient require a helper to interact with others in social and therapeutic situations? No. SOCIAL INTERACTION - STEP 2: Does the patient need extra time in social situations, OR does s/he interact with staff, other patien ts, and family members ONLY in structured environments, OR does s/he require medication for social in teraction? Yes, patient needs extra time SOCIAL INTERACTION - SCORE: 6-ROBBY PROBLEM SOLVING: PROBLEM SOLVING - STEP 1: Does the patient need help from a person or device, or need extra time to solve complex problems such as managing a checking account or confronting interpersonal problems? No. PROBLEM SOLVING - STEP 2: Does the patient require extra time to make decisions or solve problems, OR does s/he have slight dif ficulty reading, initiating, or self-correcting in unfamiliar situations? Yes, patient needs extra ti me. PROBLEM SOLVING - SCORE: 6-ROBBY MEMORY: MEMORY - STEP 1: Does the patient need help from a person or device, or need extra time to remember frequently encount ered people, daily routines, and executing requests? No. MEMORY - STEP 2: Does the patient have slight difficulty recognizing frequently encountered people, daily routines, or executing requests without the need for repetition or using self-initiated or environmental cues to remember? No. MEMORY - SCORE: 7-IND SIGNATURE PANEL: The following modified sections: Eating - Score, Grooming - Score, Bathing - Score, Dressing - Upper Body - Score, Dressing - Lower Body - Score, Toileting - Score, Bladder Management - Score, Bowel Man agement - Score, Transfers: Bed, Chair, Wheelchair - Score, Transfers: Toilet - Score, Transfers: Kayla wer - Score, Transfers: Tub - Score, Locomotion: Walk - Score, Locomotion: Wheelchair - Score, Compre hension - Score, Expression - Score, Social Interaction - Score, Problem Solving - Score, Memory - Sc ore were [electronically] signed by Anne Rodarte RN on MonAug 14 2018 01:41:40 GMT-0600 (Central Stand miguel Time)
[2018-08-14] MEDS: ENOXAPARIN 40 MG/0.4 ML SQ SCH (07:21)
[2018-08-14] MEDS: levoFLOXacin 500 MG TAB PO SCH (07:28)
[2018-08-14] MEDS: LIDOCAINE 5% PATCH TOP SCH (07:28)
[2018-08-14] MEDS: hydroCHLOROthiazide 12.5 MG CAP PO SCH (07:28)
[2018-08-14] MEDS: ESCITALOPRAM 20 MG TAB PO SCH (07:28)
[2018-08-14] MEDS: GABAPENTIN 300 MG CAP PO SCH ×2 (07:28→20:21)
[2018-08-14] MEDS: AMLODIPINE 5 MG TAB PO SCH ×2 (07:28→20:21)
[2018-08-14] MEDS: MECLIZINE HCL 12.5 MG TAB PO SCH ×2 (07:28→20:21)
[2018-08-14] MEDS: ASPIRIN EC 81 MG TAB PO SCH (07:28)
[2018-08-14] MEDS: DOCUSATE NA 100 MG CAP PO SCH ×2 (07:28→20:20)
[2018-08-14] MEDS: FLUTICASONE 50MCG NASAL SPRAY NAS SCH ×2 (08:30→20:21)
[2018-08-14] MEDS: RAMIPRIL 5 MG CAP PO SCH ×2 (08:31→20:20)
--- NOTE | 2018-08-14 10:45 | FAST ---
SHIFT START DATE/TIME: 08/14/2018 07:00 (PCTS) SHIFT END DATE/TIME: 08/14/2018 19:00 (PCTS) NAME ELSIE MENDOZA DATE OF : 1950 DATE OF ADMISSION: 08/08/2018 16:18 (PCTS) PHONE: AGE: 68 SSN# [id number] GENDER: Male ENCOUNTER PHYSICIAN: Dr. Daniel Mane M.D. ADMISSION DIAGNOSIS: - Debility 16 - Debility (16) RIGHT 6TH RIB FRCATURE. EATING: EATING - STEP 1: Does the patient require the assistance of a person or device, or need extra time when eating? Yes. EATING - STEP 2: Does the patient require the assistance of a helper? Yes. EATING - STEP 3: Does the patient perform half or more of the eating tasks? Yes. EATING - STEP 4: Does the patient need only supervision, cuing, coaxing OR help to apply an orthosis OR help to cut fo od, open containers, pour liquids, or butter bread? Yes. EATING - SCORE: 5-SUP GROOMING: Oral care Wash, rinse, and dry hands GROOMING - STEP 1: Does the patient require the assistance of a person or device, or need extra time when grooming? Yes. GROOMING - STEP 2: Does the patient require the assistance of a helper? Yes. GROOMING - STEP 3: How much assistance does the patient require from the helper? Cuing, coaxing, instructions, or encour agement for completion of grooming GROOMING - SCORE: 5-SUP BATHING: Activity did not occur on this shift BATHING - SCORE: 0-UNK DRESSING - UPPER BODY: T-shirt/pullover shirt (four steps) ARTICLES SCORE Total number of steps: 4 DRESSING - UPPER BODY - STEP 1: Does the patient require help from a person or device, or need extra time when dressing above the meek st? Yes. DRESSING - UPPER BODY - STEP 2: Does the patient require the assistance of a helper? Yes. DRESSING - UPPER BODY - STEP 3: Does the helper touch the patient while dressing? Yes. DRESSING - UPPER BODY - STEP 4: How many of the total steps does the patient complete on his/her own? 1 DRESSING - UPPER BODY - STEP 5: Does Patient require total assistance for dressing above the waist such as the helper holding clothin g and performing basically all the activities? No. DRESSING - UPPER BODY - SCORE: 2-MAX DRESSING - LOWER BODY: ARTICLES SCORE Total number of steps: 12 DRESSING - LOWER BODY - STEP 1: Does the patient require help from a person or device, or need extra time when dressing below the meek st? Yes. DRESSING - LOWER BODY - STEP 2: Does the patient require the assistance of a helper? Yes. DRESSING - LOWER BODY - STEP 3: Does the helper touch the patient while dressing? Yes. DRESSING - LOWER BODY - STEP 4: How many of the total steps does the patient complete on his/her own? 1 DRESSING - LOWER BODY - STEP 5: Does patient require total assistance for dressing below the waist such as the helper holding clothin g and performing basically all the activities? Yes. DRESSING - LOWER BODY - SCORE: 1-DEP TOILETING: TOILETING - STEP 1: Does the patient require the assistance of a person or device, or need extra time with toileting? Yes . TOILETING - STEP 2: Does the patient require the assistance of a helper? Yes. TOILETING - STEP 3: How much assistance does the patient require from the helper? Hands-on assistance from the helper TOILETING - STEP 4: Of the 3 tasks: 1) Adjusting clothing prior to use, 2) Cleansing of perineal area, 3) Adjusting clot stephenie after use; How many tasks does the patient perform WITHOUT assistance of the helper? One task TOILETING - SCORE: 2-MAX BLADDER MANAGEMENT: [place] removes incontinent device (Depends, pull ups, etc.); cleans the patient after accident / inco ntinent episode; and, applies new incontinent device. BLADDER MANAGEMENT - SCORE: 1-DEP BLADDER MANAGEMENT - FREQUENCY OF ACCIDENTS: BLADDER MANAGEMENT(FA) - STEP 1: How many accidents has the patient had during the current shift? 3 BOWEL MANAGEMENT: Activity did not occur on this shift BOWEL MANAGEMENT - SCORE: 7-IND TRANSFERS: BED, CHAIR, WHEELCHAIR: TRANSFERS: BED, CHAIR, WHEELCHAIR - STEP 1: Does the patient require assistance of a person or device, or need extra time with bed, chair, or whe elchair transfers? Yes. TRANSFERS: BED, CHAIR, WHEELCHAIR - STEP 2: Does the patient require the assistance of a helper? Yes. TRANSFERS: BED, CHAIR, WHEELCHAIR - STEP 3: How much assistance does the patient require from the helper? Lifting of the patient TRANSFERS: BED, CHAIR, WHEELCHAIR - STEP 4: Does the helper lift the patient ONLY up? ONLY down? Up AND Down? Up AND Down. TRANSFERS: BED, CHAIR, WHEELCHAIR - SCORE: 2-MAX TRANSFERS: TOILET: TRANSFERS: TOILET - STEP 1: Does the patient require the assistance of a person or device, or need extra time with toilet transfe rs? Yes. TRANSFERS: TOILET - STEP 2: Does the patient require the assistance of a helper? Yes. TRANSFERS: TOILET - STEP 3: How much assistance does the patient require from the helper? Patient performs half or more of the tr ansferring tasks TRANSFERS: TOILET - STEP 4: Does the patient need only incidental help such as contact guard or steadying during toilet transfer? No. Patient needs more than incidental help TRANSFERS: TOILET - SCORE: 3-MOD TRANSFERS: SHOWER: Activity did not occur on this shift TRANSFERS: SHOWER - SCORE: 0-UNK TRANSFERS: TUB: Activity did not occur on this shift TRANSFERS: TUB - SCORE: 0-UNK LOCOMOTION: WALK: Activity did not occur on this shift LOCOMOTION: WALK - SCORE: 0-UNK LOCOMOTION: WHEELCHAIR: Activity did not occur on this shift LOCOMOTION: WHEELCHAIR - SCORE: 0-UNK COMPREHENSION: COMPREHENSION: TYPE: Both COMPREHENSION - STEP 1: Does the patient require help from a person or device, or need extra time to understand complex and a bstract ideas (such as current events, finances, discharge planning, medical issues, relationships, e tc)? No. COMPREHENSION - STEP 2: Does the patient need extra time, require an assistive device (such as glasses for visual comprehensi on or a hearing aid for auditory comprehension) or does s/he have mild difficulty understanding compl ex and abstract information? Yes. COMPREHENSION - SCORE: 6-ROBBY EXPRESSION EXPRESSION: TYPE: Both EXPRESSION - STEP 1: Does the patient require help from a person or device, or need extra time expressing complex and abst ract ideas (such as current events, finances, discharge planning, medical issues, relationships, etc) ? No. EXPRESSION - STEP 2: Does the patient need extra time, require an assistive device (such as augmentive communication syste m or a communication board), OR does s/he have mild difficulty expressing complex and abstract ideas (including mild dysarthria or mild word-find problems)? Yes. EXPRESSION - SCORE: 6-ROBBY SOCIAL INTERACTION: SOCIAL INTERACTION - STEP 1: Does the patient require a helper to interact with others in social and therapeutic situations? No. SOCIAL INTERACTION - STEP 2: Does the patient need extra time in social situations, OR does s/he interact with staff, other patien ts, and family members ONLY in structured environments, OR does s/he require medication for social in teraction? No. SOCIAL INTERACTION - SCORE: 7-IND PROBLEM SOLVING: PROBLEM SOLVING - STEP 1: Does the patient need help from a person or device, or need extra time to solve complex problems such as managing a checking account or confronting interpersonal problems? No. PROBLEM SOLVING - STEP 2: Does the patient require extra time to make decisions or solve problems, OR does s/he have slight dif ficulty reading, initiating, or self-correcting in unfamiliar situations? Yes, patient needs extra ti me. PROBLEM SOLVING - SCORE: 6-ROBBY MEMORY: MEMORY - STEP 1: Does the patient need help from a person or device, or need extra time to remember frequently encount ered people, daily routines, and executing requests? No. MEMORY - STEP 2: Does the patient have slight difficulty recognizing frequently encountered people, daily routines, or executing requests without the need for repetition or using self-initiated or environmental cues to remember? Yes. MEMORY - SCORE: 6-ROBBY SIGNATURE PANEL: The following modified sections: Eating - Score, Grooming - Score, Bathing - Score, Dressing - Upper Body - Score, Dressing - Lower Body - Score, Toileting - Score, Bladder Management - Score, Bowel Man agement - Score, Transfers: Bed, Chair, Wheelchair - Score, Transfers: Toilet - Score, Transfers: Kayla wer - Score, Transfers: Tub - Score, Locomotion: Walk - Score, Locomotion: Wheelchair - Score, Compre hension - Score, Expression - Score, Social Interaction - Score, Problem Solving - Score, Memory - Sc ore were [electronically] signed by Cali Barron on MonAug 14 2018 10:44:36 GMT-0600 (Central Standard Time)
--- NOTE | 2018-08-14 11:49 | FAST ---
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 Daniel Mane M.D. ADMISSION DIAGNOSIS: - Debility 16 - Debility (16) RIGHT 6TH RIB FRCATURE. EATING: Activity did not occur on this shift EATING - SCORE: 0-UNK GROOMING: Activity did not occur on this shift GROOMING - SCORE: 0-UNK BATHING: Activity did not occur on this shift BATHING - SCORE: 0-UNK DRESSING - UPPER BODY: Activity did not occur on this shift Patient is not dressing in public clothing ARTICLES SCORE Total number of steps: 0 DRESSING - UPPER BODY - SCORE: 0-UNK DRESSING - LOWER BODY: Activity did not occur on this shift Patient is not dressing in public clothing ARTICLES SCORE Total number of steps: 0 DRESSING - LOWER BODY - SCORE: 0-UNK TOILETING: Activity did not occur on this shift TOILETING - SCORE: 0-UNK BLADDER MANAGEMENT: Activity did not occur on this shift BLADDER MANAGEMENT - SCORE: 7-IND BOWEL MANAGEMENT: Activity did not occur on this shift BOWEL MANAGEMENT - SCORE: 7-IND TRANSFERS: BED, CHAIR, WHEELCHAIR: TRANSFERS: BED, CHAIR, WHEELCHAIR - STEP 1: Does the patient require assistance of a person or device, or need extra time with bed, chair, or whe elchair transfers? Yes. TRANSFERS: BED, CHAIR, WHEELCHAIR - STEP 2: Does the patient require the assistance of a helper? Yes. TRANSFERS: BED, CHAIR, WHEELCHAIR - STEP 3: How much assistance does the patient require from the helper? Lifting of the legs TRANSFERS: BED, CHAIR, WHEELCHAIR - STEP 4: How many legs does the patient require the helper to lift? both legs TRANSFERS: BED, CHAIR, WHEELCHAIR - SCORE: 3-MOD TRANSFERS: TOILET: Activity did not occur on this shift TRANSFERS: TOILET - SCORE: 0-UNK TRANSFERS: SHOWER: Activity did not occur on this shift TRANSFERS: SHOWER - SCORE: 0-UNK TRANSFERS: TUB: Activity did not occur on this shift TRANSFERS: TUB - SCORE: 0-UNK LOCOMOTION: WALK: Patient walks less than 50 feet LOCOMOTION: WALK - SCORE: 1-DEP LOCOMOTION: WHEELCHAIR: Activity did not occur on this shift LOCOMOTION: WHEELCHAIR - SCORE: 0-UNK LOCOMOTION: STAIRS: Activity did not occur on this shift LOCOMOTION: STAIRS - SCORE: 0-UNK COMPREHENSION: COMPREHENSION - SCORE: 0-UNK EXPRESSION EXPRESSION - SCORE: 0-UNK SOCIAL INTERACTION: SOCIAL INTERACTION - SCORE: 0-UNK PROBLEM SOLVING: PROBLEM SOLVING - SCORE: 0-UNK MEMORY: MEMORY - SCORE: 0-UNK SIGNATURE PANEL: The following modified sections: Transfers: Bed, Chair, Wheelchair - Score, Transfers: Toilet - Score , Locomotion: Walk - Score, Locomotion: Wheelchair - Score, Locomotion: Stairs - Score were [electron ically] signed by Rashi Griffith PTA on MonAug 14 2018 11:48:20 GMT-0600 (Central Standard Time)
--- NOTE | 2018-08-14 15:13 | FAST ---
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 Daniel Mane M.D. ADMISSION DIAGNOSIS: - Debility 16 - Debility (16) RIGHT 6TH RIB FRCATURE. EATING: Activity did not occur on this shift EATING - SCORE: 0-UNK GROOMING: Activity did not occur on this shift GROOMING - SCORE: 0-UNK BATHING: Activity did not occur on this shift BATHING - SCORE: 0-UNK DRESSING - UPPER BODY: Activity did not occur on this shift Patient is not dressing in public clothing ARTICLES SCORE Total number of steps: 0 DRESSING - UPPER BODY - SCORE: 0-UNK DRESSING - LOWER BODY: Activity did not occur on this shift Patient is not dressing in public clothing ARTICLES SCORE Total number of steps: 0 DRESSING - LOWER BODY - SCORE: 0-UNK TOILETING: Activity did not occur on this shift TOILETING - SCORE: 0-UNK BLADDER MANAGEMENT: Activity did not occur on this shift BLADDER MANAGEMENT - SCORE: 7-IND BOWEL MANAGEMENT: Activity did not occur on this shift BOWEL MANAGEMENT - SCORE: 7-IND TRANSFERS: BED, CHAIR, WHEELCHAIR: Activity did not occur on this shift TRANSFERS: BED, CHAIR, WHEELCHAIR - SCORE: 0-UNK TRANSFERS: TOILET: Activity did not occur on this shift TRANSFERS: TOILET - SCORE: 0-UNK TRANSFERS: SHOWER: Activity did not occur on this shift TRANSFERS: SHOWER - SCORE: 0-UNK TRANSFERS: TUB: Activity did not occur on this shift TRANSFERS: TUB - SCORE: 0-UNK LOCOMOTION: WALK: Activity did not occur on this shift LOCOMOTION: WALK - SCORE: 0-UNK LOCOMOTION: WHEELCHAIR: Activity did not occur on this shift LOCOMOTION: WHEELCHAIR - SCORE: 0-UNK LOCOMOTION: STAIRS: Activity did not occur on this shift LOCOMOTION: STAIRS - SCORE: 0-UNK COMPREHENSION: COMPREHENSION - SCORE: 0-UNK EXPRESSION EXPRESSION - SCORE: 0-UNK SOCIAL INTERACTION: SOCIAL INTERACTION - SCORE: 0-UNK PROBLEM SOLVING: PROBLEM SOLVING - SCORE: 0-UNK MEMORY: MEMORY - SCORE: 0-UNK SIGNATURE PANEL: The following modified sections: Transfers: Bed, Chair, Wheelchair - Score, Transfers: Toilet - Score , Locomotion: Walk - Score, Locomotion: Wheelchair - Score, Locomotion: Stairs - Score were [electron gerard] signed by Rashi Griffith PTA on MonAug 14 2018 15:12:34 GMT-0600 (Central Standard Time)
[2018-08-14] MEDS: HYDROCODONE/APAP 5/325 MG TAB PO PRN (15:30)
[2018-08-14] MEDS: GUAIFENESIN/DM 5 ML UCUP PO PRN (15:47)
--- NOTE | 2018-08-14 18:28 | R.PN ---
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 Pt denied any Shortness of Breath. Propelled wheelchair 250' with standby assistance. VITAL SIGNS Temperature: 98.1 F SBP/DBP: 143/73 Pulse: 80 Resp: 16 MEDICATION ALLERGIES: Sulfa ENVIRONMENTAL ALLERGIES: None Known - Substance Allergies None Known - Other Allergies None Known NURSING: - Shower allowing shower ACTIVITIES OOB only with supervision THERAPIES: - Occupational Therapy Evaluate and Treat. - Physical Therapy Evaluate and Treat. PHYSICAL EXAM - Gen Alert and awake Lying in bed No apparent distress Oriented to: person, time, and place - Skin No breakdown No abnormalities - Eyes No abnormalities - ENMT No abnormalities - Neck No abnormalities - CVS RRR - Chest No abnormalities - Resp Clear to auscultation - Abd + bowel sounds - GI Soft Deferred - No abnormalities - Ext Mild bilateral lower extremity edema. - MSK 4+/5 weakness in both lower extremities. - Neuro No focal deficits - Psych No abnormalities ASSESSMENT: Pt. is a 68 yo Right-handed white male.On 08/03/2018 he was admitted to [facility] with diagnosis RIGHT 6TH RIB FRCATURE.His impairment category is Debility 16 - Debility (16).Pre -morbidly, Pt. was independent/mod-I in Sphincter Control, Transfers Control, Communication, Social C ognition, Self-Care, and Locomotion; and he had good Sphincter Control.Currently, he has deficits of Safety Awareness, Transfers Control, Balance, Self-Care, Locomotion, and Endurance.Pt. is now referre d to [facility] for acute in-patient rehabilitation in order to maximize patie nt's functional independence in activities of daily living, strength, ROM, and mobility.- Rehab Goal Patient has realistic goal of being discharged at assistance level 6-Henny to reside at Home with Fam liana/Relatives. MDM/PLAN: - Physical Therapy Gait dysfunction - to improve, our physical therapists will perform initial evaluation of pt's statu s upon admission and devise an individualized program for Gait Training, and Wheel Chair mobility Inability to transfer - to improve, our physical therapists will perform initial evaluation of pt's status upon admission and devise an individualized program for Bed mobility Need for home safety evaluation - to improve, our physical therapists will perform initial evaluatio n of pt's status upon admission and devise an individualized program for Home Evaluation Need in caregiver upon discharge - to improve, our physical therapists will perform initial evaluati on of pt's status upon admission and devise an individualized program for Caregiver Training New precaution - to improve, our physical therapists will perform initial evaluation of pt's status upon admission and devise an individualized program for Patient precaution education Edema - to improve, our physical therapists will perform initial evaluation of pt's status upon admi ssion and devise an individualized program for Elevation Training, and Lymphedema Therapy Poor balance - to improve, our physical therapists will perform initial evaluation of pt's status up on admission and devise an individualized program for Balance Training Poor endurance - to improve, our physical therapists will perform initial evaluation of pt's status upon admission and devise an individualized program for Endurance Training Weakness - to improve, our physical therapists will perform initial evaluation of pt's status upon a dmission and devise an individualized program for Aquatic Therapy, Neuromuscular Reeducation, and Str engthening Achieving independence - to improve, our physical therapists will perform initial evaluation of pt's status upon admission and devise an individualized program for Community Reintegration Activities - Occupational Therapy ADL deficits - to improve, our occupation therapists will perform initial evaluation of pt's status upon admission and devise an individualized program for Bathing, Bed mobility, Community Reintegratio n, Cooking, Dressing, Eating, Fine Motor Skills, Grooming, Homemaking, Kitchen Mobility, Laundry, Pat ient Education, Safety Awareness, Splinting - Positioning, Transfers(Toilet, Tub, Shower), and Wheel Chair Management Need for neonatal critical care nurse - to improve, our occupation therapists will perform initial evaluation of pt's status upon admission and devise an individualized program for Caregiver Training Weakness - to improve, our occupation therapists will perform initial evaluation of pt's status upon admission and devise an individualized program for Aquatic Therapy, Balance, Endurance, UE ROM, and UE strengthening - Diet Type Continue Heart Healthy - Diet - Liquid Texture Continue Regular - Tube Feed Continue N/A - Diet - Solid Texture Continue Regular - Shower allowing shower FUNCTIONAL STATUS: UPDATED AT WEEKLY TEAM CONFERENCE - Bladder Same accident frequency: 7-Ind - No accidents in the past 7 days - Bowel Same accident frequency: 7-Ind - No accidents in the past 7 days - Walking Same score based on distance walked: 1(<=50ft) - Wheelchair Same score based on distance traveled: 0(N/A) FUNCTIONAL STATUS: - Self-Care A. Eating sup B. Grooming Henny C. Bathing Ruddy D. Dressing - Upper Ruddy E. Dressing - Lower Ruddy F. Toileting modA - Sphincter Control G: Bladder control Ind H: Bowel control Ind - Transfers Control I. Bed/Chair/Wheelchair maxA J. Toilet maxA K. Tub/Shower ADNO - Locomotion L. Walk/Wheelchair (C) modA L. Walk/Wheelchair (W) modA M. Stairs ADNO - Communication N. Comprehension (B) Ind O. Expression (B) Ind - Social Cognition P. Social Interaction Ind Q. Problem Solving Ind R. Memory Ind - Endurance Fair - Balance Fair - Safety Awareness Fair CURRENT FUNC. DEFICITS: Safety Awareness, Transfers Control, Balance, Self-Care, Locomotion, and Endurance SIGNATURE PANEL: (IT TECHNICIAN)
[2018-08-14] MEDS: ATORVASTATIN 10 MG TAB PO SCH (20:20)
[2018-08-15] MEDS: TRAMADOL HCL 50 MG TAB PO SCH ×4 (00:58→19:52)
[2018-08-15] MEDS: ALBUTEROL 2.5 MG/3 ML NEB SOL NEB SCH ×4 (02:00→20:45)
--- NOTE | 2018-08-15 03:08 | PN ---
Date of Progress Note: 08/14/2018 Subjective: The patient was seen this morning for followup. No new complaints, problems reported by him. He was sitting in the chair. Objective: Vital Signs: Reviewed. HEENT: Examination unremarkable. Lungs: Clear to auscultation. Heart: Sounds normal. Abdomen: Soft. Bowel sounds normal. No guarding, rigidity, tenderness, or distention. Extremities: No leg edema. Impression: 1.Pneumonia. 2.Constipation. 3.Hypertension. 4.Stroke with right-sided hemiparesis. Plan: Continue current medications. The patient reports having bowel movement yesterday. We will c ontinue current stool softener and laxative. Continue current antibiotics and physical therapy will be provided under guidance of Dr. Mane. DAWNA/MODL Voice ID: [id number] Report ID: [id number]
--- NOTE | 2018-08-15 03:18 | FAST ---
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 Daniel Mane M.D. ADMISSION DIAGNOSIS: - Debility 16 - Debility (16) RIGHT 6TH RIB FRCATURE. EATING: Activity did not occur on this shift EATING - SCORE: 0-UNK GROOMING: Activity did not occur on this shift GROOMING - SCORE: 0-UNK BATHING: Activity did not occur on this shift BATHING - SCORE: 0-UNK DRESSING - UPPER BODY: Patient is not dressing in public clothing ARTICLES SCORE Total number of steps: 0 DRESSING - UPPER BODY - SCORE: 0-UNK DRESSING - LOWER BODY: Patient is not dressing in public clothing ARTICLES SCORE Total number of steps: 0 DRESSING - LOWER BODY - SCORE: 0-UNK TOILETING: Activity did not occur on this shift TOILETING - SCORE: 0-UNK BLADDER MANAGEMENT: Hammond removes incontinent device (Depends, pull ups, etc.); cleans the patient after accident / inco ntinent episode; and, applies new incontinent device. BLADDER MANAGEMENT - SCORE: 1-DEP BLADDER MANAGEMENT - FREQUENCY OF ACCIDENTS: BLADDER MANAGEMENT(FA) - STEP 1: How many accidents has the patient had during the current shift? 1 BOWEL MANAGEMENT: Activity did not occur on this shift BOWEL MANAGEMENT - SCORE: 7-IND TRANSFERS: BED, CHAIR, WHEELCHAIR: Patient requires more than one helper and/or the use of a mechanical lift is utilized TRANSFERS: BED, CHAIR, WHEELCHAIR - SCORE: 1-DEP TRANSFERS: TOILET: Patient requires more than one helper and/or the use of a mechanical lift is utilized TRANSFERS: TOILET - SCORE: 1-DEP TRANSFERS: SHOWER: Activity did not occur on this shift TRANSFERS: SHOWER - SCORE: 0-UNK TRANSFERS: TUB: Activity did not occur on this shift TRANSFERS: TUB - SCORE: 0-UNK LOCOMOTION: WALK: Activity did not occur on this shift LOCOMOTION: WALK - SCORE: 0-UNK LOCOMOTION: WHEELCHAIR: Activity did not occur on this shift LOCOMOTION: WHEELCHAIR - SCORE: 0-UNK COMPREHENSION: COMPREHENSION: TYPE: Both COMPREHENSION - STEP 1: Does the patient require help from a person or device, or need extra time to understand complex and a bstract ideas (such as current events, finances, discharge planning, medical issues, relationships, e tc)? No. COMPREHENSION - STEP 2: Does the patient need extra time, require an assistive device (such as glasses for visual comprehensi on or a hearing aid for auditory comprehension) or does s/he have mild difficulty understanding compl ex and abstract information? Yes. COMPREHENSION - SCORE: 6-ROBBY EXPRESSION EXPRESSION: TYPE: Both EXPRESSION - STEP 1: Does the patient require help from a person or device, or need extra time expressing complex and abst ract ideas (such as current events, finances, discharge planning, medical issues, relationships, etc) ? No. EXPRESSION - STEP 2: Does the patient need extra time, require an assistive device (such as augmentive communication syste m or a communication board), OR does s/he have mild difficulty expressing complex and abstract ideas (including mild dysarthria or mild word-find problems)? Yes. EXPRESSION - SCORE: 6-ROBBY SOCIAL INTERACTION: SOCIAL INTERACTION - STEP 1: Does the patient require a helper to interact with others in social and therapeutic situations? No. SOCIAL INTERACTION - STEP 2: Does the patient need extra time in social situations, OR does s/he interact with staff, other patien ts, and family members ONLY in structured environments, OR does s/he require medication for social in teraction? Yes, patient needs extra time SOCIAL INTERACTION - SCORE: 6-ROBBY PROBLEM SOLVING: PROBLEM SOLVING - STEP 1: Does the patient need help from a person or device, or need extra time to solve complex problems such as managing a checking account or confronting interpersonal problems? No. PROBLEM SOLVING - STEP 2: Does the patient require extra time to make decisions or solve problems, OR does s/he have slight dif ficulty reading, initiating, or self-correcting in unfamiliar situations? Yes, patient needs extra ti me. PROBLEM SOLVING - SCORE: 6-ROBBY MEMORY: MEMORY - STEP 1: Does the patient need help from a person or device, or need extra time to remember frequently encount ered people, daily routines, and executing requests? No. MEMORY - STEP 2: Does the patient have slight difficulty recognizing frequently encountered people, daily routines, or executing requests without the need for repetition or using self-initiated or environmental cues to remember? No. MEMORY - SCORE: 7-IND SIGNATURE PANEL: The following modified sections: Eating - Score, Grooming - Score, Bathing - Score, Dressing - Upper Body - Score, Dressing - Lower Body - Score, Toileting - Score, Bladder Management - Score, Bowel Man agement - Score, Transfers: Bed, Chair, Wheelchair - Score, Transfers: Toilet - Score, Transfers: Kayla wer - Score, Transfers: Tub - Score, Locomotion: Walk - Score, Locomotion: Wheelchair - Score, Compre hension - Score, Expression - Score, Social Interaction - Score, Problem Solving - Score, Memory - Sc ore were [electronically] signed by Anne Rodarte RN on MonAug 15 2018 03:17:20 GMT-0600 (Central Stand miguel Time)
[2018-08-15] MEDS: ENOXAPARIN 40 MG/0.4 ML SQ SCH (07:00)
[2018-08-15] MEDS: FLUTICASONE 50MCG NASAL SPRAY NAS SCH ×2 (07:00→19:51)
[2018-08-15] MEDS: POLYETHYL GLY 3350 17 GM/DOSE PO PRN (08:24)
[2018-08-15] MEDS: DOCUSATE NA 100 MG CAP PO SCH ×2 (08:24→19:53)
[2018-08-15] MEDS: ESCITALOPRAM 20 MG TAB PO SCH (08:24)
[2018-08-15] MEDS: ASPIRIN EC 81 MG TAB PO SCH (08:24)
[2018-08-15] MEDS: GABAPENTIN 300 MG CAP PO SCH ×2 (08:25→19:52)
[2018-08-15] MEDS: levoFLOXacin 500 MG TAB PO SCH (08:25)
[2018-08-15] MEDS: hydroCHLOROthiazide 12.5 MG CAP PO SCH (08:25)
[2018-08-15] MEDS: AMLODIPINE 5 MG TAB PO SCH ×2 (08:25→19:53)
[2018-08-15] MEDS: MECLIZINE HCL 12.5 MG TAB PO SCH ×2 (08:27→19:53)
[2018-08-15] MEDS: LIDOCAINE 5% PATCH TOP SCH (08:27)
[2018-08-15] MEDS: GUAIFENESIN 600 MG SA TAB PO SCH ×2 (09:31→19:53)
[2018-08-15] MEDS: RAMIPRIL 5 MG CAP PO SCH ×2 (09:31→19:51)
[2018-08-15] MEDS: GUAIFENESIN/DM 5 ML UCUP PO PRN (12:46)
--- NOTE | 2018-08-15 15:22 | RAD REPORT ---
EXAM DESCRIPTION: RAD - Chest Pa And Lat (2 Views) - 08/15/2018 12:31 pm CLINICAL HISTORY: pneumonia Chest pain. COMPARISON: Chest Pa And Lat (2 Views) dated 08/11/2018; Chest Single View dated 08/06/2018; Chest Sin gle View dated 08/05/2018; Chest Single View dated 08/02/2018 FINDINGS: Mild linear opacities are present in both lung bases, greater on the left, unchanged. Most likely, this is mild residual atelectasis. The heart is normal in size. No displaced fractures. Ster notomy wires noted. IMPRESSION: Stable appearance to bibasilar linear subsegmental atelectasis.
--- NOTE | 2018-08-15 16:37 | FAST ---
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 Daniel Mane M.D. ADMISSION DIAGNOSIS: - Debility 16 - Debility (16) RIGHT 6TH RIB FRCATURE. EATING: EATING - STEP 1: Does the patient require the assistance of a person or device, or need extra time when eating? Yes. EATING - STEP 2: Does the patient require the assistance of a helper? Yes. EATING - STEP 3: Does the patient perform half or more of the eating tasks? Yes. EATING - STEP 4: Does the patient need only supervision, cuing, coaxing OR help to apply an orthosis OR help to cut fo od, open containers, pour liquids, or butter bread? Yes. EATING - SCORE: 5-SUP GROOMING: Comb/brush hair Oral care Wash, rinse, and dry face Wash, rinse, and dry hands GROOMING - STEP 1: Does the patient require the assistance of a person or device, or need extra time when grooming? Yes. GROOMING - STEP 2: Does the patient require the assistance of a helper? Yes. GROOMING - STEP 3: How much assistance does the patient require from the helper? Only prior equipment preparation/set up from the helper GROOMING - SCORE: 5-SUP GROOMING - COMMENTS: Left side flacid BATHING: Activity did not occur on this shift BATHING - SCORE: 0-UNK DRESSING - UPPER BODY: T-shirt/pullover shirt (four steps) ARTICLES SCORE Total number of steps: 4 DRESSING - UPPER BODY - STEP 1: Does the patient require help from a person or device, or need extra time when dressing above the meek st? Yes. DRESSING - UPPER BODY - STEP 2: Does the patient require the assistance of a helper? Yes. DRESSING - UPPER BODY - STEP 3: Does the helper touch the patient while dressing? Yes. DRESSING - UPPER BODY - STEP 4: How many of the total steps does the patient complete on his/her own? 2 DRESSING - UPPER BODY - SCORE: 3-MOD DRESSING - UPPER BODY - COMMENTS: Pt is able to thread one arm into shirt and pull shirt up over his head DRESSING - LOWER BODY: Elastic waist pants (three steps) Sock - Left foot (one step) Sock - Right foot (one step) Tied or buckled shoe - Left foot (two steps) Tied or buckled shoe - Right foot (two steps) Underwear (three steps) ARTICLES SCORE Total number of steps: 12 DRESSING - LOWER BODY - STEP 1: Does the patient require help from a person or device, or need extra time when dressing below the meek st? Yes. DRESSING - LOWER BODY - STEP 2: Does the patient require the assistance of a helper? Yes. DRESSING - LOWER BODY - STEP 3: Does the helper touch the patient while dressing? Yes. DRESSING - LOWER BODY - STEP 4: How many of the total steps does the patient complete on his/her own? 2 DRESSING - LOWER BODY - STEP 5: Does patient require total assistance for dressing below the waist such as the helper holding clothin g and performing basically all the activities? Yes. DRESSING - LOWER BODY - SCORE: 1-DEP DRESSING - LOWER BODY - COMMENTS: Helps pt is able to position his foot inside his shoe and pt weight on shoe TOILETING: TOILETING - STEP 1: Does the patient require the assistance of a person or device, or need extra time with toileting? Yes . TOILETING - STEP 2: Does the patient require the assistance of a helper? Yes. TOILETING - STEP 3: How much assistance does the patient require from the helper? Hands-on assistance from the helper TOILETING - STEP 4: Of the 3 tasks: 1) Adjusting clothing prior to use, 2) Cleansing of perineal area, 3) Adjusting clot stephenie after use; How many tasks does the patient perform WITHOUT assistance of the helper? No tasks; h kandace performs all three tasks TOILETING - SCORE: 1-DEP TOILETING - COMMENTS: Pt requires helper to help pt stand up-coater operator helping pt to stay balanced- pt pulls one side of his clot hes up as coater operator pull the other side of his clothes up BLADDER MANAGEMENT: Amity removes incontinent device (Depends, pull ups, etc.); cleans the patient after accident / inco ntinent episode; and, applies new incontinent device. BLADDER MANAGEMENT - SCORE: 1-DEP BLADDER MANAGEMENT - FREQUENCY OF ACCIDENTS: BLADDER MANAGEMENT(FA) - STEP 1: How many accidents has the patient had during the current shift? 2 BOWEL MANAGEMENT: Activity did not occur on this shift BOWEL MANAGEMENT - SCORE: 7-IND BOWEL MANAGEMENT - FREQUENCY OF ACCIDENTS: BOWEL MANAGEMENT(FA) - STEP 1: How many accidents has the patient had during the current shift? 0 TRANSFERS: BED, CHAIR, WHEELCHAIR: Activity did not occur on this shift TRANSFERS: BED, CHAIR, WHEELCHAIR - SCORE: 0-UNK TRANSFERS: TOILET: TRANSFERS: TOILET - STEP 1: Does the patient require the assistance of a person or device, or need extra time with toilet transfe rs? Yes. TRANSFERS: TOILET - STEP 2: Does the patient require the assistance of a helper? Yes. TRANSFERS: TOILET - STEP 3: How much assistance does the patient require from the helper? Patient performs half or more of the tr ansferring tasks TRANSFERS: TOILET - STEP 4: Does the patient need only incidental help such as contact guard or steadying during toilet transfer? No. Patient needs more than incidental help TRANSFERS: TOILET - SCORE: 3-MOD TRANSFERS: SHOWER: Activity did not occur on this shift TRANSFERS: SHOWER - SCORE: 0-UNK TRANSFERS: TUB: Activity did not occur on this shift TRANSFERS: TUB - SCORE: 0-UNK LOCOMOTION: WALK: Activity did not occur on this shift LOCOMOTION: WALK - SCORE: 0-UNK LOCOMOTION: WHEELCHAIR: Activity did not occur on this shift LOCOMOTION: WHEELCHAIR - SCORE: 0-UNK COMPREHENSION: COMPREHENSION: TYPE: Both COMPREHENSION - STEP 1: Does the patient require help from a person or device, or need extra time to understand complex and a bstract ideas (such as current events, finances, discharge planning, medical issues, relationships, e tc)? No. COMPREHENSION - STEP 2: Does the patient need extra time, require an assistive device (such as glasses for visual comprehensi on or a hearing aid for auditory comprehension) or does s/he have mild difficulty understanding compl ex and abstract information? Yes. COMPREHENSION - SCORE: 6-ROBBY EXPRESSION EXPRESSION: TYPE: Both EXPRESSION - STEP 1: Does the patient require help from a person or device, or need extra time expressing complex and abst ract ideas (such as current events, finances, discharge planning, medical issues, relationships, etc) ? Yes. EXPRESSION - STEP 2: Does the patient require help to express basic necessities or ideas (such as hunger, thirst, sleep, s afety, daily schedule, room location, or discomfort) half or more of the time? No. EXPRESSION - STEP 3: How often does the patient need help to express directions and conversation about basic needs? Less t watt 10% of the time EXPRESSION - SCORE: 5-SUP SOCIAL INTERACTION: SOCIAL INTERACTION - STEP 1: Does the patient require a helper to interact with others in social and therapeutic situations? No. SOCIAL INTERACTION - STEP 2: Does the patient need extra time in social situations, OR does s/he interact with staff, other patien ts, and family members ONLY in structured environments, OR does s/he require medication for social in teraction? Yes, patient needs extra time SOCIAL INTERACTION - SCORE: 6-ROBBY PROBLEM SOLVING: PROBLEM SOLVING - STEP 1: Does the patient need help from a person or device, or need extra time to solve complex problems such as managing a checking account or confronting interpersonal problems? Yes. PROBLEM SOLVING - STEP 2: Does the patient solve basic routine problems half or more of the time? Yes. PROBLEM SOLVING - STEP 3: How often does the patient need help to solve basic routine problems? Less than 10% of the time PROBLEM SOLVING - SCORE: 5-SUP MEMORY: MEMORY - STEP 1: Does the patient need help from a person or device, or need extra time to remember frequently encount ered people, daily routines, and executing requests? Yes. MEMORY - STEP 2: How often does the patient need help to remember frequently encountered people, daily routines, and e xecuting requests? Less than 10% of the time MEMORY - SCORE: 5-SUP SIGNATURE PANEL: The following modified sections: Eating - Score, Grooming - Score, Grooming - Comments:, Bathing - Sc ore, Dressing - Upper Body - Score, Dressing - Upper Body - Comments:, Dressing - Lower Body - Score, Dressing - Lower Body - Comments:, Toileting - Score, Toileting - Comments:, Bladder Management - Sc ore, Bowel Management - Score, Transfers: Bed, Chair, Wheelchair - Score, Transfers: Toilet - Score, Transfers: Shower - Score, Transfers: Tub - Score, Locomotion: Walk - Score, Locomotion: Wheelchair - Score, Comprehension - Score, Expression - Score, Social Interaction - Score, Problem Solving - Scor e, Memory - Score were [electronically] signed by Dasha Wei C.N.A. on MonAug 15 2018 16:37:02 T-0600 (Central Standard Time)
--- NOTE | 2018-08-15 19:04 | R.PN ---
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 Pt denied any Shortness of Breath. Propelled wheelchair 160' with standby assistance. VITAL SIGNS Temperature: 98.1 F SBP/DBP: 131/74 Pulse: 76 Resp: 14 MEDICATION ALLERGIES: Sulfa ENVIRONMENTAL ALLERGIES: None Known - Substance Allergies None Known - Other Allergies None Known NURSING: - Shower allowing shower ACTIVITIES OOB only with supervision THERAPIES: - Occupational Therapy Evaluate and Treat. - Physical Therapy Evaluate and Treat. PHYSICAL EXAM - Gen Alert and awake Lying in bed No apparent distress Oriented to: person, time, and place - Skin No breakdown No abnormalities - Eyes No abnormalities - ENMT No abnormalities - Neck No abnormalities - CVS RRR - Chest No abnormalities - Resp Clear to auscultation - Abd + bowel sounds - GI Soft Deferred - No abnormalities - Ext Mild bilateral lower extremity edema. - MSK 4+/5 weakness in both lower extremities. - Neuro No focal deficits - Psych No abnormalities ASSESSMENT: Pt. is a 68 yo Right-handed white male.On 08/03/2018 he was admitted to [facility] with diagnosis RIGHT 6TH RIB FRCATURE.His impairment category is Debility 16 - Debility (16).Pre -morbidly, Pt. was independent/mod-I in Sphincter Control, Transfers Control, Communication, Social C ognition, Self-Care, and Locomotion; and he had good Sphincter Control.Currently, he has deficits of Safety Awareness, Transfers Control, Balance, Self-Care, Locomotion, and Endurance.Pt. is now referre d to [facility] for acute in-patient rehabilitation in order to maximize patie nt's functional independence in activities of daily living, strength, ROM, and mobility.- Rehab Goal Patient has realistic goal of being discharged at assistance level 6-Henny to reside at Home with Fam liana/Relatives. MDM/PLAN: - Physical Therapy Gait dysfunction - to improve, our physical therapists will perform initial evaluation of pt's statu s upon admission and devise an individualized program for Gait Training, and Wheel Chair mobility Inability to transfer - to improve, our physical therapists will perform initial evaluation of pt's status upon admission and devise an individualized program for Bed mobility Need for home safety evaluation - to improve, our physical therapists will perform initial evaluatio n of pt's status upon admission and devise an individualized program for Home Evaluation Need in caregiver upon discharge - to improve, our physical therapists will perform initial evaluati on of pt's status upon admission and devise an individualized program for Caregiver Training New precaution - to improve, our physical therapists will perform initial evaluation of pt's status upon admission and devise an individualized program for Patient precaution education Edema - to improve, our physical therapists will perform initial evaluation of pt's status upon admi ssion and devise an individualized program for Elevation Training, and Lymphedema Therapy Poor balance - to improve, our physical therapists will perform initial evaluation of pt's status up on admission and devise an individualized program for Balance Training Poor endurance - to improve, our physical therapists will perform initial evaluation of pt's status upon admission and devise an individualized program for Endurance Training Weakness - to improve, our physical therapists will perform initial evaluation of pt's status upon a dmission and devise an individualized program for Aquatic Therapy, Neuromuscular Reeducation, and Str engthening Achieving independence - to improve, our physical therapists will perform initial evaluation of pt's status upon admission and devise an individualized program for Community Reintegration Activities - Occupational Therapy ADL deficits - to improve, our occupation therapists will perform initial evaluation of pt's status upon admission and devise an individualized program for Bathing, Bed mobility, Community Reintegratio n, Cooking, Dressing, Eating, Fine Motor Skills, Grooming, Homemaking, Kitchen Mobility, Laundry, Pat ient Education, Safety Awareness, Splinting - Positioning, Transfers(Toilet, Tub, Shower), and Wheel Chair Management Need for body care manager - to improve, our occupation therapists will perform initial evaluation of pt's status upon admission and devise an individualized program for Caregiver Training Weakness - to improve, our occupation therapists will perform initial evaluation of pt's status upon admission and devise an individualized program for Aquatic Therapy, Balance, Endurance, UE ROM, and UE strengthening - Diet Type Continue Heart Healthy - Diet - Liquid Texture Continue Regular - Tube Feed Continue N/A - Diet - Solid Texture Continue Regular - Shower allowing shower FUNCTIONAL STATUS: UPDATED AT WEEKLY TEAM CONFERENCE - Bladder Same accident frequency: 7-Ind - No accidents in the past 7 days - Bowel Same accident frequency: 7-Ind - No accidents in the past 7 days - Walking Same score based on distance walked: 1(<=50ft) - Wheelchair Same score based on distance traveled: 0(N/A) FUNCTIONAL STATUS: - Self-Care A. Eating sup B. Grooming Henny C. Bathing Ruddy D. Dressing - Upper Ruddy E. Dressing - Lower Ruddy F. Toileting modA - Sphincter Control G: Bladder control Ind H: Bowel control Ind - Transfers Control I. Bed/Chair/Wheelchair maxA J. Toilet maxA K. Tub/Shower ADNO - Locomotion L. Walk/Wheelchair (C) modA L. Walk/Wheelchair (W) modA M. Stairs ADNO - Communication N. Comprehension (B) Ind O. Expression (B) Ind - Social Cognition P. Social Interaction Ind Q. Problem Solving Ind R. Memory Ind - Endurance Fair - Balance Fair - Safety Awareness Fair CURRENT FUNC. 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
[2018-08-15] MEDS: ATORVASTATIN 10 MG TAB PO SCH (19:52)
[2018-08-16] MEDS: TRAMADOL HCL 50 MG TAB PO SCH ×4 (01:04→19:49)
--- NOTE | 2018-08-16 01:17 | PN ---
Date of Progress Note: 08/15/2018 Subjective: The patient was seen this morning for followup, lying in bed, not in distress. His last bowel movement was day before yesterday. Denies any abdominal pain, but has lot of cough and chest congestion. Objective: Vital Signs: Reviewed. HEENT Examination: Unremarkable. Lungs: Bilateral good equal air entry. Some scattered rales noted in lower lung field. Heart: Sounds normal. Abdomen: Soft. Bowel sounds normal. No guarding, rigidity, tenderness, distention. Extremity Exam: No leg edema. Impression: 1.Pneumonia. 2.Stroke with right-sided hemiparesis. 3.Hypertension. 4.Debility. Plan: We will continue current antibiotic. Get a chest x-ray done today. Mucinex 600 mg twice a da y was started. We will continue nebulizer treatment per order. I will see him tomorrow for followup . DAWNA/MODL Voice ID: [id number] Report ID: [id number]
[2018-08-16] MEDS: ALBUTEROL 2.5 MG/3 ML NEB SOL NEB SCH ×4 (02:55→20:35)
--- NOTE | 2018-08-16 03:02 | FAST ---
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 Daniel Mane M.D. ADMISSION DIAGNOSIS: - Debility 16 - Debility (16) RIGHT 6TH RIB FRCATURE. EATING: Activity did not occur on this shift EATING - SCORE: 0-UNK GROOMING: Activity did not occur on this shift GROOMING - SCORE: 0-UNK BATHING: Activity did not occur on this shift BATHING - SCORE: 0-UNK DRESSING - UPPER BODY: Patient is not dressing in public clothing ARTICLES SCORE Total number of steps: 0 DRESSING - UPPER BODY - SCORE: 0-UNK DRESSING - LOWER BODY: Patient is not dressing in public clothing ARTICLES SCORE Total number of steps: 0 DRESSING - LOWER BODY - SCORE: 0-UNK TOILETING: TOILETING - STEP 1: Does the patient require the assistance of a person or device, or need extra time with toileting? Yes . TOILETING - STEP 2: Does the patient require the assistance of a helper? Yes. TOILETING - STEP 3: How much assistance does the patient require from the helper? Hands-on assistance from the helper TOILETING - STEP 4: Of the 3 tasks: 1) Adjusting clothing prior to use, 2) Cleansing of perineal area, 3) Adjusting clot stephenie after use; How many tasks does the patient perform WITHOUT assistance of the helper? No tasks; h kandace performs all three tasks TOILETING - SCORE: 1-DEP BLADDER MANAGEMENT: Lemitar removes incontinent device (Depends, pull ups, etc.); cleans the patient after accident / inco ntinent episode; and, applies new incontinent device. BLADDER MANAGEMENT - SCORE: 1-DEP BLADDER MANAGEMENT - FREQUENCY OF ACCIDENTS: BLADDER MANAGEMENT(FA) - STEP 1: How many accidents has the patient had during the current shift? 1 BOWEL MANAGEMENT: Activity did not occur on this shift BOWEL MANAGEMENT - SCORE: 7-IND TRANSFERS: BED, CHAIR, WHEELCHAIR: TRANSFERS: BED, CHAIR, WHEELCHAIR - STEP 1: Does the patient require assistance of a person or device, or need extra time with bed, chair, or whe elchair transfers? Yes. TRANSFERS: BED, CHAIR, WHEELCHAIR - STEP 2: Does the patient require the assistance of a helper? Yes. TRANSFERS: BED, CHAIR, WHEELCHAIR - STEP 3: How much assistance does the patient require from the helper? Lifting of the patient TRANSFERS: BED, CHAIR, WHEELCHAIR - STEP 4: Does the helper lift the patient ONLY up? ONLY down? Up AND Down? Patient needs help with all lifting TRANSFERS: BED, CHAIR, WHEELCHAIR - SCORE: 1-DEP TRANSFERS: TOILET: TRANSFERS: TOILET - STEP 1: Does the patient require the assistance of a person or device, or need extra time with toilet transfe rs? Yes. TRANSFERS: TOILET - STEP 2: Does the patient require the assistance of a helper? Yes. TRANSFERS: TOILET - STEP 3: How much assistance does the patient require from the helper? Patient performs half or more of the tr ansferring tasks TRANSFERS: TOILET - STEP 4: Does the patient need only incidental help such as contact guard or steadying during toilet transfer? No. Patient needs more than incidental help TRANSFERS: TOILET - SCORE: 3-MOD TRANSFERS: SHOWER: Activity did not occur on this shift TRANSFERS: SHOWER - SCORE: 0-UNK TRANSFERS: TUB: Activity did not occur on this shift TRANSFERS: TUB - SCORE: 0-UNK LOCOMOTION: WALK: Activity did not occur on this shift LOCOMOTION: WALK - SCORE: 0-UNK LOCOMOTION: WHEELCHAIR: Activity did not occur on this shift LOCOMOTION: WHEELCHAIR - SCORE: 0-UNK COMPREHENSION: COMPREHENSION: TYPE: Both COMPREHENSION - STEP 1: Does the patient require help from a person or device, or need extra time to understand complex and a bstract ideas (such as current events, finances, discharge planning, medical issues, relationships, e tc)? No. COMPREHENSION - STEP 2: Does the patient need extra time, require an assistive device (such as glasses for visual comprehensi on or a hearing aid for auditory comprehension) or does s/he have mild difficulty understanding compl ex and abstract information? Yes. COMPREHENSION - SCORE: 6-ROBBY EXPRESSION EXPRESSION: TYPE: Both EXPRESSION - STEP 1: Does the patient require help from a person or device, or need extra time expressing complex and abst ract ideas (such as current events, finances, discharge planning, medical issues, relationships, etc) ? No. EXPRESSION - STEP 2: Does the patient need extra time, require an assistive device (such as augmentive communication syste m or a communication board), OR does s/he have mild difficulty expressing complex and abstract ideas (including mild dysarthria or mild word-find problems)? Yes. EXPRESSION - SCORE: 6-ROBBY SOCIAL INTERACTION: SOCIAL INTERACTION - STEP 1: Does the patient require a helper to interact with others in social and therapeutic situations? No. SOCIAL INTERACTION - STEP 2: Does the patient need extra time in social situations, OR does s/he interact with staff, other patien ts, and family members ONLY in structured environments, OR does s/he require medication for social in teraction? Yes, patient needs extra time SOCIAL INTERACTION - SCORE: 6-ROBBY PROBLEM SOLVING: PROBLEM SOLVING - STEP 1: Does the patient need help from a person or device, or need extra time to solve complex problems such as managing a checking account or confronting interpersonal problems? Yes. PROBLEM SOLVING - STEP 2: Does the patient solve basic routine problems half or more of the time? Yes. PROBLEM SOLVING - STEP 3: How often does the patient need help to solve basic routine problems? 10%-24% of the time PROBLEM SOLVING - SCORE: 4-MIN MEMORY: MEMORY - STEP 1: Does the patient need help from a person or device, or need extra time to remember frequently encount ered people, daily routines, and executing requests? No. MEMORY - STEP 2: Does the patient have slight difficulty recognizing frequently encountered people, daily routines, or executing requests without the need for repetition or using self-initiated or environmental cues to remember? Yes. MEMORY - SCORE: 6-ROBBY SIGNATURE PANEL: The following modified sections: Eating - Score, Grooming - Score, Dressing - Upper Body - Score, Joseph ssing - Lower Body - Score, Toileting - Score, Bladder Management - Score, Bowel Management - Score, Transfers: Bed, Chair, Wheelchair - Score, Transfers: Toilet - Score, Transfers: Shower - Score, Gupta sfers: Tub - Score, Locomotion: Walk - Score, Locomotion: Wheelchair - Score, Comprehension - Score, Expression - Score, Social Interaction - Score, Problem Solving - Score, Memory - Score were [electro nically] signed by Isabela Arshad CNA on MonAug 16 2018 03:01:28 GMT-0600 (Central Standard Time)
[2018-08-16 06:29] LABS: Absolute Lymphocytes (CBC) 1.2 K/uL (0.7-4.9); Absolute Monocytes 0.5 K/uL (0.1-1.3); Basophils % 0.5 % (0-1.3); Eosinophils % 1.4 % (0-4.4); Hematocrit 39.5 % (39.6-49.0); Lymphocytes % 17.8 % (15.3-44.8); MPV 6.7 fL (7.6-11.3); Monocytes % 7.8 % (3.3-12.3); RBC Red Blood Cell Count 4.53 M/uL (4.33-5.43)
[2018-08-16 06:48] LABS: Albumin 3.6 g/dL (3.4-5.0); Potassium 4.3 mmol/L (3.5-5.1); Prealbumin 26.2 mg/dL (20-40)
[2018-08-16] MEDS: FLUTICASONE 50MCG NASAL SPRAY NAS SCH ×2 (07:28→20:00)
[2018-08-16] MEDS: LIDOCAINE 5% PATCH TOP SCH (07:29)
[2018-08-16] MEDS: ENOXAPARIN 40 MG/0.4 ML SQ SCH (07:29)
[2018-08-16] MEDS: GABAPENTIN 300 MG CAP PO SCH ×2 (07:29→19:48)
[2018-08-16] MEDS: GUAIFENESIN 600 MG SA TAB PO SCH ×2 (07:31→19:49)
[2018-08-16] MEDS: ESCITALOPRAM 20 MG TAB PO SCH (07:31)
[2018-08-16] MEDS: RAMIPRIL 5 MG CAP PO SCH ×2 (07:31→21:04)
[2018-08-16] MEDS: levoFLOXacin 500 MG TAB PO SCH (07:31)
[2018-08-16] MEDS: MECLIZINE HCL 12.5 MG TAB PO SCH ×2 (07:31→19:48)
[2018-08-16] MEDS: DOCUSATE NA 100 MG CAP PO SCH ×2 (07:31→19:49)
[2018-08-16] MEDS: hydroCHLOROthiazide 12.5 MG CAP PO SCH (07:32)
[2018-08-16] MEDS: ASPIRIN EC 81 MG TAB PO SCH (07:32)
[2018-08-16] MEDS: AMLODIPINE 5 MG TAB PO SCH ×2 (07:32→21:05)
[2018-08-16] MEDS: HYDROCODONE/APAP 5/325 MG TAB PO PRN (14:30)
--- NOTE | 2018-08-16 16:28 | FAST ---
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 Daniel Mane M.D. ADMISSION DIAGNOSIS: - Debility 16 - Debility (16) RIGHT 6TH RIB FRCATURE. EATING: Activity did not occur on this shift EATING - SCORE: 0-UNK GROOMING: Activity did not occur on this shift GROOMING - SCORE: 0-UNK BATHING: Activity did not occur on this shift BATHING - SCORE: 0-UNK DRESSING - UPPER BODY: Activity did not occur on this shift Patient is not dressing in public clothing ARTICLES SCORE Total number of steps: 0 DRESSING - UPPER BODY - SCORE: 0-UNK DRESSING - LOWER BODY: Activity did not occur on this shift Patient is not dressing in public clothing ARTICLES SCORE Total number of steps: 0 DRESSING - LOWER BODY - SCORE: 0-UNK TOILETING: Activity did not occur on this shift TOILETING - SCORE: 0-UNK BLADDER MANAGEMENT: Activity did not occur on this shift BLADDER MANAGEMENT - SCORE: 7-IND BOWEL MANAGEMENT: Activity did not occur on this shift BOWEL MANAGEMENT - SCORE: 7-IND TRANSFERS: BED, CHAIR, WHEELCHAIR: TRANSFERS: BED, CHAIR, WHEELCHAIR - STEP 1: Does the patient require assistance of a person or device, or need extra time with bed, chair, or whe elchair transfers? Yes. TRANSFERS: BED, CHAIR, WHEELCHAIR - STEP 2: Does the patient require the assistance of a helper? Yes. TRANSFERS: BED, CHAIR, WHEELCHAIR - STEP 3: How much assistance does the patient require from the helper? Steadying/guiding assistance TRANSFERS: BED, CHAIR, WHEELCHAIR - SCORE: 4-MIN TRANSFERS: TOILET: Activity did not occur on this shift TRANSFERS: TOILET - SCORE: 0-UNK TRANSFERS: SHOWER: Activity did not occur on this shift TRANSFERS: SHOWER - SCORE: 0-UNK TRANSFERS: TUB: Activity did not occur on this shift TRANSFERS: TUB - SCORE: 0-UNK LOCOMOTION: WALK: Patient walks less than 50 feet LOCOMOTION: WALK - SCORE: 1-DEP LOCOMOTION: WHEELCHAIR: LOCOMOTION: WHEELCHAIR - STEP 1: Does the patient need help to go 150 feet in a wheelchair? Yes. LOCOMOTION: WHEELCHAIR - STEP 2: How much assistance does the patient need from the helper? Only supervision, cuing, or coaxing LOCOMOTION: WHEELCHAIR - SCORE: 5-SUP LOCOMOTION: STAIRS: Activity did not occur on this shift LOCOMOTION: STAIRS - SCORE: 0-UNK COMPREHENSION: COMPREHENSION - SCORE: 0-UNK EXPRESSION EXPRESSION - SCORE: 0-UNK SOCIAL INTERACTION: SOCIAL INTERACTION - SCORE: 0-UNK PROBLEM SOLVING: PROBLEM SOLVING - SCORE: 0-UNK MEMORY: MEMORY - SCORE: 0-UNK SIGNATURE PANEL: The following modified sections: Transfers: Bed, Chair, Wheelchair - Score, Transfers: Toilet - Score , Locomotion: Walk - Score, Locomotion: Wheelchair - Score, Locomotion: Stairs - Score were [electron gerard] signed by Rashi Griffith PTA on MonAug 16 2018 16:27:28 GMT-0600 (Central Standard Time)
--- NOTE | 2018-08-16 16:30 | FAST ---
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 Daniel Mane M.D. ADMISSION DIAGNOSIS: - Debility 16 - Debility (16) RIGHT 6TH RIB FRCATURE. EATING: Activity did not occur on this shift EATING - SCORE: 0-UNK GROOMING: Activity did not occur on this shift GROOMING - SCORE: 0-UNK BATHING: Activity did not occur on this shift BATHING - SCORE: 0-UNK DRESSING - UPPER BODY: Activity did not occur on this shift Patient is not dressing in public clothing ARTICLES SCORE Total number of steps: 0 DRESSING - UPPER BODY - SCORE: 0-UNK DRESSING - LOWER BODY: Activity did not occur on this shift Patient is not dressing in public clothing ARTICLES SCORE Total number of steps: 0 DRESSING - LOWER BODY - SCORE: 0-UNK TOILETING: Activity did not occur on this shift TOILETING - SCORE: 0-UNK BLADDER MANAGEMENT: Activity did not occur on this shift BLADDER MANAGEMENT - SCORE: 7-IND BOWEL MANAGEMENT: Activity did not occur on this shift BOWEL MANAGEMENT - SCORE: 7-IND TRANSFERS: BED, CHAIR, WHEELCHAIR: TRANSFERS: BED, CHAIR, WHEELCHAIR - STEP 1: Does the patient require assistance of a person or device, or need extra time with bed, chair, or whe elchair transfers? Yes. TRANSFERS: BED, CHAIR, WHEELCHAIR - STEP 2: Does the patient require the assistance of a helper? Yes. TRANSFERS: BED, CHAIR, WHEELCHAIR - STEP 3: How much assistance does the patient require from the helper? Steadying/guiding assistance TRANSFERS: BED, CHAIR, WHEELCHAIR - SCORE: 4-MIN TRANSFERS: TOILET: Activity did not occur on this shift TRANSFERS: TOILET - SCORE: 0-UNK TRANSFERS: SHOWER: Activity did not occur on this shift TRANSFERS: SHOWER - SCORE: 0-UNK TRANSFERS: TUB: Activity did not occur on this shift TRANSFERS: TUB - SCORE: 0-UNK LOCOMOTION: WALK: LOCOMOTION: WALK - STEP 1: Does the patient need help from a person or device, or need extra time to walk 150 feet? Yes. LOCOMOTION: WALK - STEP 2: How much assistance does the patient require to walk a minimum of 150 feet? Patient walks less than 1 50 feet - but more than 50 feet - with the assistance of only one helper LOCOMOTION: WALK - SCORE: 2-MAX LOCOMOTION: WHEELCHAIR: LOCOMOTION: WHEELCHAIR - STEP 1: Does the patient need help to go 150 feet in a wheelchair? Yes. LOCOMOTION: WHEELCHAIR - STEP 2: How much assistance does the patient need from the helper? Only supervision, cuing, or coaxing LOCOMOTION: WHEELCHAIR - SCORE: 5-SUP LOCOMOTION: STAIRS: Activity did not occur on this shift LOCOMOTION: STAIRS - SCORE: 0-UNK COMPREHENSION: COMPREHENSION - SCORE: 0-UNK EXPRESSION EXPRESSION - SCORE: 0-UNK SOCIAL INTERACTION: SOCIAL INTERACTION - SCORE: 0-UNK PROBLEM SOLVING: PROBLEM SOLVING - SCORE: 0-UNK MEMORY: MEMORY - SCORE: 0-UNK SIGNATURE PANEL: The following modified sections: Transfers: Bed, Chair, Wheelchair - Score, Transfers: Toilet - Score , Locomotion: Walk - Score, Locomotion: Wheelchair - Score, Locomotion: Stairs - Score were [electron icalljem] signed by Rashi Griffith PTA on Sarah Aug 16 2018 16:28:34 GMT-0600 (Central Standard Time)
--- NOTE | 2018-08-16 16:53 | FAST ---
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 Daniel Mane M.D. ADMISSION DIAGNOSIS: - Debility 16 - Debility (16) RIGHT 6TH RIB FRCATURE. EATING: EATING - STEP 1: Does the patient require the assistance of a person or device, or need extra time when eating? Yes. EATING - STEP 2: Does the patient require the assistance of a helper? Yes. EATING - STEP 3: Does the patient perform half or more of the eating tasks? Yes. EATING - STEP 4: Does the patient need only supervision, cuing, coaxing OR help to apply an orthosis OR help to cut fo od, open containers, pour liquids, or butter bread? Yes. EATING - SCORE: 5-SUP GROOMING: Comb/brush hair Oral care Wash, rinse, and dry face Wash, rinse, and dry hands GROOMING - STEP 1: Does the patient require the assistance of a person or device, or need extra time when grooming? Yes. GROOMING - STEP 2: Does the patient require the assistance of a helper? Yes. GROOMING - STEP 3: How much assistance does the patient require from the helper? Only prior equipment preparation/set up from the helper GROOMING - SCORE: 5-SUP BATHING: Activity did not occur on this shift BATHING - SCORE: 0-UNK DRESSING - UPPER BODY: T-shirt/pullover shirt (four steps) ARTICLES SCORE Total number of steps: 4 DRESSING - UPPER BODY - STEP 1: Does the patient require help from a person or device, or need extra time when dressing above the meek st? Yes. DRESSING - UPPER BODY - STEP 2: Does the patient require the assistance of a helper? Yes. DRESSING - UPPER BODY - STEP 3: Does the helper touch the patient while dressing? Yes. DRESSING - UPPER BODY - STEP 4: How many of the total steps does the patient complete on his/her own? 0 DRESSING - UPPER BODY - STEP 5: Does Patient require total assistance for dressing above the waist such as the helper holding clothin g and performing basically all the activities? Yes. DRESSING - UPPER BODY - SCORE: 1-DEP DRESSING - LOWER BODY: Elastic waist pants (three steps) Sock - Left foot (one step) Sock - Right foot (one step) Tied or buckled shoe - Left foot (two steps) Tied or buckled shoe - Right foot (two steps) Underwear (three steps) ARTICLES SCORE Total number of steps: 12 DRESSING - LOWER BODY - STEP 1: Does the patient require help from a person or device, or need extra time when dressing below the meek st? Yes. DRESSING - LOWER BODY - STEP 2: Does the patient require the assistance of a helper? Yes. DRESSING - LOWER BODY - STEP 3: Does the helper touch the patient while dressing? Yes. DRESSING - LOWER BODY - STEP 4: How many of the total steps does the patient complete on his/her own? 4 DRESSING - LOWER BODY - STEP 5: Does patient require total assistance for dressing below the waist such as the helper holding clothin g and performing basically all the activities? Yes. DRESSING - LOWER BODY - SCORE: 1-DEP TOILETING: TOILETING - STEP 1: Does the patient require the assistance of a person or device, or need extra time with toileting? Yes . TOILETING - STEP 2: Does the patient require the assistance of a helper? Yes. TOILETING - STEP 3: How much assistance does the patient require from the helper? Hands-on assistance from the helper TOILETING - STEP 4: Of the 3 tasks: 1) Adjusting clothing prior to use, 2) Cleansing of perineal area, 3) Adjusting clot stephenie after use; How many tasks does the patient perform WITHOUT assistance of the helper? Two tasks TOILETING - SCORE: 3-MOD BLADDER MANAGEMENT: BLADDER MANAGEMENT - STEP 1: Does the patient control the bladder completely and intentionally without equipment or devices or med ications, and is always continent? No. BLADDER MANAGEMENT - STEP 2: Does the patient require the assistance of a helper? Yes. BLADDER MANAGEMENT - STEP 3: How much assistance does the patient require from the helper? Patient requires contact assistance fro m the helper BLADDER MANAGEMENT - STEP 4: How much contact assistance does the patient require from the helper? Patient requires maximal assist ance, and only performs 25% to 49% of bladder management tasks BLADDER MANAGEMENT - SCORE: 2-MAX BLADDER MANAGEMENT - FREQUENCY OF ACCIDENTS: BLADDER MANAGEMENT(FA) - STEP 1: How many accidents has the patient had during the current shift? 3 BOWEL MANAGEMENT: Activity did not occur on this shift BOWEL MANAGEMENT - SCORE: 7-IND BOWEL MANAGEMENT - FREQUENCY OF ACCIDENTS: BOWEL MANAGEMENT(FA) - STEP 1: How many accidents has the patient had during the current shift? 0 TRANSFERS: BED, CHAIR, WHEELCHAIR: TRANSFERS: BED, CHAIR, WHEELCHAIR - STEP 1: Does the patient require assistance of a person or device, or need extra time with bed, chair, or whe elchair transfers? Yes. TRANSFERS: BED, CHAIR, WHEELCHAIR - STEP 2: Does the patient require the assistance of a helper? Yes. TRANSFERS: BED, CHAIR, WHEELCHAIR - STEP 3: How much assistance does the patient require from the helper? Lifting of the legs TRANSFERS: BED, CHAIR, WHEELCHAIR - STEP 4: How many legs does the patient require the helper to lift? both legs TRANSFERS: BED, CHAIR, WHEELCHAIR - SCORE: 3-MOD TRANSFERS: TOILET: TRANSFERS: TOILET - STEP 1: Does the patient require the assistance of a person or device, or need extra time with toilet transfe rs? Yes. TRANSFERS: TOILET - STEP 2: Does the patient require the assistance of a helper? Yes. TRANSFERS: TOILET - STEP 3: How much assistance does the patient require from the helper? Patient performs half or more of the tr ansferring tasks TRANSFERS: TOILET - STEP 4: Does the patient need only incidental help such as contact guard or steadying during toilet transfer? No. Patient needs more than incidental help TRANSFERS: TOILET - SCORE: 3-MOD TRANSFERS: SHOWER: Activity did not occur on this shift TRANSFERS: SHOWER - SCORE: 0-UNK TRANSFERS: TUB: Activity did not occur on this shift TRANSFERS: TUB - SCORE: 0-UNK LOCOMOTION: WALK: Activity did not occur on this shift LOCOMOTION: WALK - SCORE: 0-UNK LOCOMOTION: WHEELCHAIR: Activity did not occur on this shift LOCOMOTION: WHEELCHAIR - SCORE: 0-UNK COMPREHENSION: COMPREHENSION: TYPE: Both COMPREHENSION - STEP 1: Does the patient require help from a person or device, or need extra time to understand complex and a bstract ideas (such as current events, finances, discharge planning, medical issues, relationships, e tc)? No. COMPREHENSION - STEP 2: Does the patient need extra time, require an assistive device (such as glasses for visual comprehensi on or a hearing aid for auditory comprehension) or does s/he have mild difficulty understanding compl ex and abstract information? Yes. COMPREHENSION - SCORE: 6-ROBBY EXPRESSION EXPRESSION: TYPE: Both EXPRESSION - STEP 1: Does the patient require help from a person or device, or need extra time expressing complex and abst ract ideas (such as current events, finances, discharge planning, medical issues, relationships, etc) ? Yes. EXPRESSION - STEP 2: Does the patient require help to express basic necessities or ideas (such as hunger, thirst, sleep, s afety, daily schedule, room location, or discomfort) half or more of the time? No. EXPRESSION - STEP 3: How often does the patient need help to express directions and conversation about basic needs? Less t watt 10% of the time EXPRESSION - SCORE: 5-SUP SOCIAL INTERACTION: SOCIAL INTERACTION - STEP 1: Does the patient require a helper to interact with others in social and therapeutic situations? No. SOCIAL INTERACTION - STEP 2: Does the patient need extra time in social situations, OR does s/he interact with staff, other patien ts, and family members ONLY in structured environments, OR does s/he require medication for social in teraction? Yes, patient needs extra time SOCIAL INTERACTION - SCORE: 6-ROBBY PROBLEM SOLVING: PROBLEM SOLVING - STEP 1: Does the patient need help from a person or device, or need extra time to solve complex problems such as managing a checking account or confronting interpersonal problems? Yes. PROBLEM SOLVING - STEP 2: Does the patient solve basic routine problems half or more of the time? Yes. PROBLEM SOLVING - STEP 3: How often does the patient need help to solve basic routine problems? Less than 10% of the time PROBLEM SOLVING - SCORE: 5-SUP MEMORY: MEMORY - STEP 1: Does the patient need help from a person or device, or need extra time to remember frequently encount ered people, daily routines, and executing requests? Yes. MEMORY - STEP 2: How often does the patient need help to remember frequently encountered people, daily routines, and e xecuting requests? Less than 10% of the time MEMORY - SCORE: 5-SUP SIGNATURE PANEL: The following modified sections: Eating - Score, Grooming - Score, Bathing - Score, Dressing - Lower Body - Comments:, Toileting - Score, Toileting - Comments:, Bladder Management - Score, Bowel Managem ent - Score, Transfers: Bed, Chair, Wheelchair - Score, Transfers: Toilet - Score, Transfers: Shower - Score, Transfers: Tub - Score, Locomotion: Walk - Score, Locomotion: Wheelchair - Score, Comprehens ion - Score, Expression - Score, Social Interaction - Score, Problem Solving - Score, Memory - Score, Dressing - Lower Body - Score, Dressing - Upper Body - Score were [electronically] signed by Dasha Madrid, C.N.A. on MonAug 16 2018 16:52:56 GMT-0600 (Central Standard Time)
--- NOTE | 2018-08-16 18:30 | R.PN ---
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 Pt denied any Shortness of Breath. Propelled wheelchair 160' with standby assistance. Ambulated 130' with left quad cane. VITAL SIGNS Temperature: 98.1 F SBP/DBP: 119/62 Pulse: 76 Resp: 14 MEDICATION ALLERGIES: Sulfa ENVIRONMENTAL ALLERGIES: None Known - Substance Allergies None Known - Other Allergies None Known NURSING: - Shower allowing shower ACTIVITIES OOB only with supervision THERAPIES: - Occupational Therapy Evaluate and Treat. - Physical Therapy Evaluate and Treat. PHYSICAL EXAM - Gen Alert and awake Lying in bed No apparent distress Oriented to: person, time, and place - Skin No breakdown No abnormalities - Eyes No abnormalities - ENMT No abnormalities - Neck No abnormalities - CVS RRR - Chest No abnormalities - Resp Clear to auscultation - Abd + bowel sounds - GI Soft Deferred - No abnormalities - Ext Mild bilateral lower extremity edema. - MSK 4+/5 weakness in both lower extremities. - Neuro No focal deficits - Psych No abnormalities ASSESSMENT: Pt. is a 68 yo Right-handed white male.On 08/03/2018 he was admitted to [facility] with diagnosis RIGHT 6TH RIB FRCATURE.His impairment category is Debility 16 - Debility (16).Pre -morbidly, Pt. was independent/mod-I in Sphincter Control, Transfers Control, Communication, Social C ognition, Self-Care, and Locomotion; and he had good Sphincter Control.Currently, he has deficits of Safety Awareness, Transfers Control, Balance, Self-Care, Locomotion, and Endurance.Pt. is now referre d to [facility] for acute in-patient rehabilitation in order to maximize patie nt's functional independence in activities of daily living, strength, ROM, and mobility.- Rehab Goal Patient has realistic goal of being discharged at assistance level 6-Henny to reside at Home with Fam liana/Relatives. MDM/PLAN: - Physical Therapy Gait dysfunction - to improve, our physical therapists will perform initial evaluation of pt's statu s upon admission and devise an individualized program for Gait Training, and Wheel Chair mobility Inability to transfer - to improve, our physical therapists will perform initial evaluation of pt's status upon admission and devise an individualized program for Bed mobility Need for home safety evaluation - to improve, our physical therapists will perform initial evaluatio n of pt's status upon admission and devise an individualized program for Home Evaluation Need in caregiver upon discharge - to improve, our physical therapists will perform initial evaluati on of pt's status upon admission and devise an individualized program for Caregiver Training New precaution - to improve, our physical therapists will perform initial evaluation of pt's status upon admission and devise an individualized program for Patient precaution education Edema - to improve, our physical therapists will perform initial evaluation of pt's status upon admi ssion and devise an individualized program for Elevation Training, and Lymphedema Therapy Poor balance - to improve, our physical therapists will perform initial evaluation of pt's status up on admission and devise an individualized program for Balance Training Poor endurance - to improve, our physical therapists will perform initial evaluation of pt's status upon admission and devise an individualized program for Endurance Training Weakness - to improve, our physical therapists will perform initial evaluation of pt's status upon a dmission and devise an individualized program for Aquatic Therapy, Neuromuscular Reeducation, and Str engthening Achieving independence - to improve, our physical therapists will perform initial evaluation of pt's status upon admission and devise an individualized program for Community Reintegration Activities - Occupational Therapy ADL deficits - to improve, our occupation therapists will perform initial evaluation of pt's status upon admission and devise an individualized program for Bathing, Bed mobility, Community Reintegratio n, Cooking, Dressing, Eating, Fine Motor Skills, Grooming, Homemaking, Kitchen Mobility, Laundry, Pat ient Education, Safety Awareness, Splinting - Positioning, Transfers(Toilet, Tub, Shower), and Wheel Chair Management Need for ocular care aide - to improve, our occupation therapists will perform initial evaluation of pt's status upon admission and devise an individualized program for Caregiver Training Weakness - to improve, our occupation therapists will perform initial evaluation of pt's status upon admission and devise an individualized program for Aquatic Therapy, Balance, Endurance, UE ROM, and UE strengthening - Diet Type Continue Heart Healthy - Diet - Liquid Texture Continue Regular - Tube Feed Continue N/A - Diet - Solid Texture Continue Regular - Shower allowing shower FUNCTIONAL STATUS: UPDATED AT WEEKLY TEAM CONFERENCE - Bladder Same accident frequency: 7-Ind - No accidents in the past 7 days - Bowel Same accident frequency: 7-Ind - No accidents in the past 7 days - Walking Same score based on distance walked: 1(<=50ft) - Wheelchair Same score based on distance traveled: 0(N/A) FUNCTIONAL STATUS: - Self-Care A. Eating sup B. Grooming Henny C. Bathing Ruddy D. Dressing - Upper Ruddy E. Dressing - Lower Ruddy F. Toileting modA - Sphincter Control G: Bladder control Ind H: Bowel control Ind - Transfers Control I. Bed/Chair/Wheelchair maxA J. Toilet maxA K. Tub/Shower ADNO - Locomotion L. Walk/Wheelchair (C) modA L. Walk/Wheelchair (W) modA M. Stairs ADNO - Communication N. Comprehension (B) Ind O. Expression (B) Ind - Social Cognition P. Social Interaction Ind Q. Problem Solving Ind R. Memory Ind - Endurance Fair - Balance Fair - Safety Awareness Fair CURRENT FUNC. DEFICITS: Safety Awareness, Transfers Control, Balance, Self-Care, Locomotion, and Endurance SIGNATURE PANEL: (MEDICAL SERVICE REPRESENTATIVE)
[2018-08-16] MEDS: ACETYLCYST 20% 4 ML VIAL IH SCH (20:35)
[2018-08-16] MEDS: ATORVASTATIN 10 MG TAB PO SCH (21:03)
[2018-08-16] MEDS: MELATONIN 3 MG TABLET PO PRN (21:08)
--- NOTE | 2018-08-17 01:18 | PN ---
Date of Progress Note: 08/16/2018 Subjective: The patient was seen this morning for followup. He was lying in bed, still continues to have cough and not able to cough up any mucus. Objective: Vital Signs: Reviewed. HEENT: Unremarkable. Lungs: Clear to auscultation. No rhonchi or rales. Heart: Sounds normal. Abdomen: Soft. Bowel sounds normal. No guarding, rigidity, tenderness, or distention. Extremities: No leg edema. Laboratory Data: Yesterday's chest x-ray was unchanged from the previous x-ray. Impression: 1.Pneumonia. 2.Stroke. 3.Hypertension. 4.Debility. Plan: The patient is not responding well to Mucinex. We will continue nebulizer treatment, Mucinex. Continue Levaquin per order. We will add Mucomyst with nebulizer treatment per order. I will see him tomorrow for followup. He will continue to get physical therapy per guidance of Dr. Mane. DAWNA/MODL Voice ID: [id number] Report ID: [id number]
[2018-08-17] MEDS: TRAMADOL HCL 50 MG TAB PO SCH ×4 (01:27→19:57)
--- NOTE | 2018-08-17 01:29 | FAST ---
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 Daniel Mane M.D. ADMISSION DIAGNOSIS: - Debility 16 - Debility (16) RIGHT 6TH RIB FRCATURE. EATING: Activity did not occur on this shift EATING - SCORE: 0-UNK GROOMING: Activity did not occur on this shift GROOMING - SCORE: 0-UNK BATHING: Activity did not occur on this shift BATHING - SCORE: 0-UNK DRESSING - UPPER BODY: Patient is not dressing in public clothing ARTICLES SCORE Total number of steps: 0 DRESSING - UPPER BODY - SCORE: 0-UNK DRESSING - LOWER BODY: Patient is not dressing in public clothing ARTICLES SCORE Total number of steps: 0 DRESSING - LOWER BODY - SCORE: 0-UNK TOILETING: TOILETING - STEP 1: Does the patient require the assistance of a person or device, or need extra time with toileting? Yes . TOILETING - STEP 2: Does the patient require the assistance of a helper? Yes. TOILETING - STEP 3: How much assistance does the patient require from the helper? Hands-on assistance from the helper TOILETING - STEP 4: Of the 3 tasks: 1) Adjusting clothing prior to use, 2) Cleansing of perineal area, 3) Adjusting clot stephenie after use; How many tasks does the patient perform WITHOUT assistance of the helper? No tasks; h kandace performs all three tasks TOILETING - SCORE: 1-DEP BLADDER MANAGEMENT: Sod removes incontinent device (Depends, pull ups, etc.); cleans the patient after accident / inco ntinent episode; and, applies new incontinent device. BLADDER MANAGEMENT - SCORE: 1-DEP BLADDER MANAGEMENT - FREQUENCY OF ACCIDENTS: BLADDER MANAGEMENT(FA) - STEP 1: How many accidents has the patient had during the current shift? 1 BOWEL MANAGEMENT: Activity did not occur on this shift BOWEL MANAGEMENT - SCORE: 7-IND TRANSFERS: BED, CHAIR, WHEELCHAIR: TRANSFERS: BED, CHAIR, WHEELCHAIR - STEP 1: Does the patient require assistance of a person or device, or need extra time with bed, chair, or whe elchair transfers? Yes. TRANSFERS: BED, CHAIR, WHEELCHAIR - STEP 2: Does the patient require the assistance of a helper? Yes. TRANSFERS: BED, CHAIR, WHEELCHAIR - STEP 3: How much assistance does the patient require from the helper? Lifting of the patient TRANSFERS: BED, CHAIR, WHEELCHAIR - STEP 4: Does the helper lift the patient ONLY up? ONLY down? Up AND Down? Patient needs help with all lifting TRANSFERS: BED, CHAIR, WHEELCHAIR - SCORE: 1-DEP TRANSFERS: TOILET: TRANSFERS: TOILET - STEP 1: Does the patient require the assistance of a person or device, or need extra time with toilet transfe rs? Yes. TRANSFERS: TOILET - STEP 2: Does the patient require the assistance of a helper? Yes. TRANSFERS: TOILET - STEP 3: How much assistance does the patient require from the helper? Patient performs half or more of the tr ansferring tasks TRANSFERS: TOILET - STEP 4: Does the patient need only incidental help such as contact guard or steadying during toilet transfer? No. Patient needs more than incidental help TRANSFERS: TOILET - SCORE: 3-MOD TRANSFERS: SHOWER: Activity did not occur on this shift TRANSFERS: SHOWER - SCORE: 0-UNK TRANSFERS: TUB: Activity did not occur on this shift TRANSFERS: TUB - SCORE: 0-UNK LOCOMOTION: WALK: Activity did not occur on this shift LOCOMOTION: WALK - SCORE: 0-UNK LOCOMOTION: WHEELCHAIR: Activity did not occur on this shift LOCOMOTION: WHEELCHAIR - SCORE: 0-UNK COMPREHENSION: COMPREHENSION: TYPE: Both COMPREHENSION - STEP 1: Does the patient require help from a person or device, or need extra time to understand complex and a bstract ideas (such as current events, finances, discharge planning, medical issues, relationships, e tc)? Yes. COMPREHENSION - STEP 2: Does the patient require help to understand questions or statements about basic needs or ideas (such as hunger, thirst, sleep, safety, daily schedule, room location, or discomfort) half or more of the t madeleine? No. COMPREHENSION - STEP 3: How often does the patient need help to understand directions and conversation about basic needs? 10% - 24% of the time COMPREHENSION - SCORE: 4-MIN EXPRESSION EXPRESSION: TYPE: Both EXPRESSION - STEP 1: Does the patient require help from a person or device, or need extra time expressing complex and abst ract ideas (such as current events, finances, discharge planning, medical issues, relationships, etc) ? No. EXPRESSION - STEP 2: Does the patient need extra time, require an assistive device (such as augmentive communication syste m or a communication board), OR does s/he have mild difficulty expressing complex and abstract ideas (including mild dysarthria or mild word-find problems)? Yes. EXPRESSION - SCORE: 6-ROBBY SOCIAL INTERACTION: SOCIAL INTERACTION - STEP 1: Does the patient require a helper to interact with others in social and therapeutic situations? No. SOCIAL INTERACTION - STEP 2: Does the patient need extra time in social situations, OR does s/he interact with staff, other patien ts, and family members ONLY in structured environments, OR does s/he require medication for social in teraction? Yes, patient needs extra time SOCIAL INTERACTION - SCORE: 6-ROBBY PROBLEM SOLVING: PROBLEM SOLVING - STEP 1: Does the patient need help from a person or device, or need extra time to solve complex problems such as managing a checking account or confronting interpersonal problems? Yes. PROBLEM SOLVING - STEP 2: Does the patient solve basic routine problems half or more of the time? Yes. PROBLEM SOLVING - STEP 3: How often does the patient need help to solve basic routine problems? 10%-24% of the time PROBLEM SOLVING - SCORE: 4-MIN MEMORY: MEMORY - STEP 1: Does the patient need help from a person or device, or need extra time to remember frequently encount ered people, daily routines, and executing requests? No. MEMORY - STEP 2: Does the patient have slight difficulty recognizing frequently encountered people, daily routines, or executing requests without the need for repetition or using self-initiated or environmental cues to remember? Yes. MEMORY - SCORE: 6-ROBBY SIGNATURE PANEL: The following modified sections: Eating - Score, Grooming - Score, Dressing - Upper Body - Score, Joseph ssing - Lower Body - Score, Toileting - Score, Bladder Management - Score, Bowel Management - Score, Transfers: Bed, Chair, Wheelchair - Score, Transfers: Toilet - Score, Transfers: Shower - Score, Gupta sfers: Tub - Score, Locomotion: Walk - Score, Locomotion: Wheelchair - Score, Comprehension - Score, Expression - Score, Social Interaction - Score, Problem Solving - Score, Memory - Score were [electro nically] signed by Isabela Arshad CNA on MonAug 17 2018 01:28:52 GMT-0600 (Central Standard Time)
[2018-08-17] MEDS: ALBUTEROL 2.5 MG/3 ML NEB SOL NEB SCH ×4 (02:00→19:40)
[2018-08-17] MEDS: ACETYLCYST 20% 4 ML VIAL IH SCH ×2 (07:02→19:40)
[2018-08-17] MEDS: LIDOCAINE 5% PATCH TOP SCH (07:29)
[2018-08-17] MEDS: ENOXAPARIN 40 MG/0.4 ML SQ SCH (07:29)
[2018-08-17] MEDS: AMLODIPINE 5 MG TAB PO SCH ×2 (08:00→20:04)
[2018-08-17] MEDS: RAMIPRIL 5 MG CAP PO SCH ×2 (08:00→19:57)
[2018-08-17] MEDS: FLUTICASONE 50MCG NASAL SPRAY NAS SCH ×2 (08:00→19:59)
[2018-08-17] MEDS: hydroCHLOROthiazide 12.5 MG CAP PO SCH (08:00)
[2018-08-17] MEDS: MECLIZINE HCL 12.5 MG TAB PO SCH ×2 (08:43→19:58)
[2018-08-17] MEDS: GABAPENTIN 300 MG CAP PO SCH ×2 (08:43→19:58)
[2018-08-17] MEDS: levoFLOXacin 500 MG TAB PO SCH (08:43)
[2018-08-17] MEDS: ESCITALOPRAM 20 MG TAB PO SCH (08:44)
[2018-08-17] MEDS: ASPIRIN EC 81 MG TAB PO SCH (08:45)
[2018-08-17] MEDS: GUAIFENESIN 600 MG SA TAB PO SCH ×2 (08:45→19:58)
[2018-08-17] MEDS: DOCUSATE NA 100 MG CAP PO SCH ×2 (08:45→19:58)
[2018-08-17] MEDS: HYDROCODONE/APAP 5/325 MG TAB PO PRN ×2 (08:46→15:21)
--- NOTE | 2018-08-17 09:58 | P.RH.PN ---
Estimated Length of Stay: 15 Expected Discharge Date: 08/20/18 Discharge Disposition Plan: Home Family Support: Yes Alf Goal: Mobility, Transfers, Self Care Vital Signs: Last Vital Signs Temp 97.9 F 08/17/18 06:25 Pulse 70 08/17/18 08:00 Resp 18 08/17/18 06:25 BP 113/70 08/17/18 08:00 Pulse Ox 96 08/17/18 06:25 Laboratory: Laboratory Last Values WBC 6.9 K/uL (4.3-10.9) D 08/16/18 06:15 RBC 4.53 M/uL (4.33-5.43) 08/16/18 06:15 Hgb 13.2 g/dL (13.6-17.9) L 08/16/18 06:15 Hct 39.5 % (39.6-49.0) L 08/16/18 06:15 MCV 87.1 fL (80-100) 08/16/18 06:15 MCH 29.1 pg (27.0-35.0) 08/16/18 06:15 MCHC 33.4 g/dL (32.0-36.0) 08/16/18 06:15 RDW 13.9 % (12.1-15.2) 08/16/18 06:15 Plt Count 432 K/uL (152-406) H 08/16/18 06:15 MPV 6.7 fL (7.6-11.3) L 08/16/18 06:15 Neutrophils % 72.5 % (41.7-73.7) 08/16/18 06:15 Lymphocytes % 17.8 % (15.3-44.8) 08/16/18 06:15 Monocytes % 7.8 % (3.3-12.3) 08/16/18 06:15 Eosinophils % 1.4 % (0-4.4) 08/16/18 06:15 Basophils % 0.5 % (0-1.3) 08/16/18 06:15 Absolute Neutrophils 5.0 K/uL (1.8-8.0) 08/16/18 06:15 Segmented Neutrophils 59 % (40-80) 08/09/18 06:21 Band Neutrophils 3 % (0-1) H 08/09/18 06:21 Absolute Lymphocytes 1.2 K/uL (0.7-4.9) 08/16/18 06:15 Lymphocytes 21 % (15-42) 08/09/18 06:21 Monocytes 10 % (0-10) 08/09/18 06:21 Absolute Monocytes 0.5 K/uL (0.1-1.3) 08/16/18 06:15 Eosinophils 3 % (0-3) 08/09/18 06:21 Absolute Eosinophils 0.1 K/uL (0-0.5) 08/16/18 06:15 Absolute Basophils 0.0 K/uL (0-0.5) 08/16/18 06:15 Metamyelocytes 2 % (0-0) H 08/09/18 06:21 Myelocytes 2 % (0-0) H 08/09/18 06:21 Giant Platelets Present 08/09/18 06:21 Morphology Comment Not seen (NOT SEEN) 08/09/18 06:21 Sodium 130 mmol/L (136-145) L 08/16/18 06:15 Potassium 4.3 mmol/L (3.5-5.1) 08/16/18 06:15 Chloride 94 mmol/L (98-107) L 08/16/18 06:15 Carbon Dioxide 30 mmol/L (21-32) 08/16/18 06:15 BUN 14 mg/dL (7-18) 08/16/18 06:15 Creatinine 0.98 mg/dL (0.55-1.3) 08/16/18 06:15 Estimated GFR 76 mL/min (=/>90) L 08/16/18 06:15 Glucose 97 mg/dL (74-106) 08/16/18 06:15 Calcium 8.9 mg/dL (8.5-10.1) 08/16/18 06:15 Magnesium 2.4 mg/dL (1.8-2.4) 08/09/18 06:21 Albumin 3.6 g/dL (3.4-5.0) 08/16/18 06:15 Prealbumin 26.2 mg/dL (20-40) 08/16/18 06:15 Weight: 171 lb 8 oz Wound Present: No Closed Surgical Incision Present: No Negative Pressure Wound Therapy Present: No Physician Update: He is worried about the 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 He has features of denial about the return of strength in the right arm. His labs have reviewed and are stable. Pain Issues: [place] 5/325mg Q4H PRN. Tramadol 50mg Q6H PRN Functional Improvement: Patient has met all short-term goals at this time and is progressing toward long-term goals. Functional Improvement Occupational Therapy: pt can benifit with further therapy to address pt's overall weakness to increase pt's UB strength and ROM especially in the right UE. Cont to instruct and increase pt's neuro re ed to the right UE with PROM/AAROM with stretch and increasing uss, by incorporating the Right UE. Cont to train and educate on LB dressing using the crimper operator. Speech Therapy Update: Mr. Rodriguez has made significant progress on all of his goals in the areas of cognition and communication. He is MOD I for auditory comprehension, social interaction, problem solving, and memory. He continues to require MIN A for verbal expression due to his dysarthria, which is confounded by his rib fx. Patient has been utilizing the spirometer multiple times a day for the last week but cannot seem to increase his ability to inhale more air past 750-1000mL. Patient required moderate skilled feedback for correct and consistent use of compensatory dysarthria strategies to increase speech precision. However, he is intelligible to familiar listeners. Summary: Patient's care plan and skilled nursing goals have been reviewed and revised as necessary. Please see the Rehabilitation Signature page for all necessary signatures.
--- NOTE | 2018-08-17 11:03 | FAST ---
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 Daniel Mane M.D. ADMISSION DIAGNOSIS: - Debility 16 - Debility (16) RIGHT 6TH RIB FRCATURE. EATING: EATING - STEP 1: Does the patient require the assistance of a person or device, or need extra time when eating? No. EATING - SCORE: 7-IND GROOMING: Activity did not occur on this shift GROOMING - SCORE: 0-UNK BATHING: Activity did not occur on this shift BATHING - SCORE: 0-UNK DRESSING - UPPER BODY: Activity did not occur on this shift ARTICLES SCORE Total number of steps: 0 DRESSING - UPPER BODY - SCORE: 0-UNK DRESSING - LOWER BODY: Elastic waist pants (three steps) Underwear (three steps) ARTICLES SCORE Total number of steps: 6 DRESSING - LOWER BODY - STEP 1: Does the patient require help from a person or device, or need extra time when dressing below the meek st? Yes. DRESSING - LOWER BODY - STEP 2: Does the patient require the assistance of a helper? Yes. DRESSING - LOWER BODY - STEP 3: Does the helper touch the patient while dressing? Yes. DRESSING - LOWER BODY - STEP 4: How many of the total steps does the patient complete on his/her own? 3 DRESSING - LOWER BODY - SCORE: 3-MOD TOILETING: TOILETING - STEP 1: Does the patient require the assistance of a person or device, or need extra time with toileting? Yes . TOILETING - STEP 2: Does the patient require the assistance of a helper? Yes. TOILETING - STEP 3: How much assistance does the patient require from the helper? Hands-on assistance from the helper TOILETING - STEP 4: Of the 3 tasks: 1) Adjusting clothing prior to use, 2) Cleansing of perineal area, 3) Adjusting clot stephenie after use; How many tasks does the patient perform WITHOUT assistance of the helper? Two tasks TOILETING - SCORE: 3-MOD BLADDER MANAGEMENT: Dameron removes incontinent device (Depends, pull ups, etc.); cleans the patient after accident / inco ntinent episode; and, applies new incontinent device. BLADDER MANAGEMENT - SCORE: 1-DEP BLADDER MANAGEMENT - FREQUENCY OF ACCIDENTS: BLADDER MANAGEMENT(FA) - STEP 1: How many accidents has the patient had during the current shift? 1 BOWEL MANAGEMENT: Dameron removes incontinent device (depends, pull ups, etc.); cleans the patient after accident / inco ntinent episode; and, applies new device (depends, pull-ups, padding, etc.). BOWEL MANAGEMENT - SCORE: 1-DEP BOWEL MANAGEMENT - FREQUENCY OF ACCIDENTS: BOWEL MANAGEMENT(FA) - STEP 1: How many accidents has the patient had during the current shift? 0 TRANSFERS: BED, CHAIR, WHEELCHAIR: TRANSFERS: BED, CHAIR, WHEELCHAIR - STEP 1: Does the patient require assistance of a person or device, or need extra time with bed, chair, or whe elchair transfers? Yes. TRANSFERS: BED, CHAIR, WHEELCHAIR - STEP 2: Does the patient require the assistance of a helper? Yes. TRANSFERS: BED, CHAIR, WHEELCHAIR - STEP 3: How much assistance does the patient require from the helper? Lifting of the legs TRANSFERS: BED, CHAIR, WHEELCHAIR - STEP 4: How many legs does the patient require the helper to lift? both legs TRANSFERS: BED, CHAIR, WHEELCHAIR - SCORE: 3-MOD TRANSFERS: TOILET: TRANSFERS: TOILET - STEP 1: Does the patient require the assistance of a person or device, or need extra time with toilet transfe rs? Yes. TRANSFERS: TOILET - STEP 2: Does the patient require the assistance of a helper? Yes. TRANSFERS: TOILET - STEP 3: How much assistance does the patient require from the helper? Patient performs half or more of the tr ansferring tasks TRANSFERS: TOILET - STEP 4: Does the patient need only incidental help such as contact guard or steadying during toilet transfer? No. Patient needs more than incidental help TRANSFERS: TOILET - SCORE: 3-MOD TRANSFERS: SHOWER: Activity did not occur on this shift TRANSFERS: SHOWER - SCORE: 0-UNK TRANSFERS: TUB: Activity did not occur on this shift TRANSFERS: TUB - SCORE: 0-UNK LOCOMOTION: WALK: Activity did not occur on this shift LOCOMOTION: WALK - SCORE: 0-UNK LOCOMOTION: WHEELCHAIR: Activity did not occur on this shift LOCOMOTION: WHEELCHAIR - SCORE: 0-UNK COMPREHENSION: COMPREHENSION - SCORE: 0-UNK EXPRESSION EXPRESSION - SCORE: 0-UNK SOCIAL INTERACTION: SOCIAL INTERACTION - SCORE: 0-UNK PROBLEM SOLVING: PROBLEM SOLVING - SCORE: 0-UNK MEMORY: MEMORY - SCORE: 0-UNK SIGNATURE PANEL: The following modified sections: Eating - Score, Grooming - Score, Bathing - Score, Dressing - Upper Body - Score, Dressing - Lower Body - Score, Toileting - Score, Bladder Management - Score, Bowel Man agement - Score, Transfers: Bed, Chair, Wheelchair - Score, Transfers: Toilet - Score, Transfers: Kayla wer - Score, Transfers: Tub - Score, Locomotion: Walk - Score, Locomotion: Wheelchair - Score, Compre hension - Score, Expression - Score, Social Interaction - Score, Problem Solving - Score, Memory - Sc ore were [electronically] signed by Diana Crawford CNA on MonAug 17 2018 11:02:49 GMT-0600 (Cent[facility] Standard Time)
--- NOTE | 2018-08-17 15:31 | FAST ---
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 Daniel Mane M.D. ADMISSION DIAGNOSIS: - Debility 16 - Debility (16) RIGHT 6TH RIB FRCATURE. EATING: Activity did not occur on this shift EATING - SCORE: 0-UNK GROOMING: Patient shaved Wash, rinse, and dry face Wash, rinse, and dry hands GROOMING - STEP 1: Does the patient require the assistance of a person or device, or need extra time when grooming? Yes. GROOMING - STEP 2: Does the patient require the assistance of a helper? No. The patient only requires an assistive devic e, OR takes more than reasonable time to groom, OR there is a concern for safety as the patient groom s GROOMING - SCORE: 6-ROBBY BATHING: Abdomen Buttocks Chest Left arm Left lower leg and foot Left upper leg Perineal area Right arm Right lower leg and foot Right upper leg BATHING - STEP 1: Does the patient require the assistance of a person or device, or need extra time when bathing? Yes. BATHING - STEP 2: Does the patient require the assistance of a helper? Yes. BATHING - STEP 3: How much assistance does the patient require from the helper? Only incidental help such as placement of a wash cloth in his/her hand a few times as s/he bathes OR help to bathe just one or two areas of the body BATHING - SCORE: 4-MIN DRESSING - UPPER BODY: Bra (three steps) T-shirt/pullover shirt (four steps) ARTICLES SCORE Total number of steps: 7 DRESSING - UPPER BODY - STEP 1: Does the patient require help from a person or device, or need extra time when dressing above the meek st? Yes. DRESSING - UPPER BODY - STEP 2: Does the patient require the assistance of a helper? Yes. DRESSING - UPPER BODY - STEP 3: Does the helper touch the patient while dressing? Yes. DRESSING - UPPER BODY - STEP 4: How many of the total steps does the patient complete on his/her own? 6 DRESSING - UPPER BODY - SCORE: 4-MIN DRESSING - LOWER BODY: Elastic waist pants (three steps) Sock - Left foot (one step) Sock - Right foot (one step) Tied or buckled shoe - Left foot (two steps) Tied or buckled shoe - Right foot (two steps) Underwear (three steps) ARTICLES SCORE Total number of steps: 12 DRESSING - LOWER BODY - STEP 1: Does the patient require help from a person or device, or need extra time when dressing below the meek st? Yes. DRESSING - LOWER BODY - STEP 2: Does the patient require the assistance of a helper? Yes. DRESSING - LOWER BODY - STEP 3: Does the helper touch the patient while dressing? Yes. DRESSING - LOWER BODY - STEP 4: How many of the total steps does the patient complete on his/her own? 6 DRESSING - LOWER BODY - SCORE: 3-MOD TOILETING: Activity did not occur on this shift TOILETING - SCORE: 0-UNK BLADDER MANAGEMENT: Activity did not occur on this shift BLADDER MANAGEMENT - SCORE: 7-IND BOWEL MANAGEMENT: Activity did not occur on this shift BOWEL MANAGEMENT - SCORE: 7-IND TRANSFERS: BED, CHAIR, WHEELCHAIR: Activity did not occur on this shift TRANSFERS: BED, CHAIR, WHEELCHAIR - SCORE: 0-UNK TRANSFERS: TOILET: Activity did not occur on this shift TRANSFERS: TOILET - SCORE: 0-UNK TRANSFERS: SHOWER: TRANSFERS: SHOWER - STEP 1: Does the patient require the assistance of a person or device, or need extra time with shower transfe rs? Yes. TRANSFERS: SHOWER - STEP 2: Does the patient require the assistance of a helper? Yes. TRANSFERS: SHOWER - STEP 3: How much assistance does the patient require from the helper? More than incidental help TRANSFERS: SHOWER - STEP 4: How much more help does the patient require from the helper? Lifting the patient either up OR down fr om the wheelchair onto the shower chair TRANSFERS: SHOWER - SCORE: 3-MOD TRANSFERS: TUB: Activity did not occur on this shift TRANSFERS: TUB - SCORE: 0-UNK LOCOMOTION: WALK: Activity did not occur on this shift LOCOMOTION: WALK - SCORE: 0-UNK LOCOMOTION: WHEELCHAIR: Activity did not occur on this shift LOCOMOTION: WHEELCHAIR - SCORE: 0-UNK LOCOMOTION: STAIRS: Activity did not occur on this shift LOCOMOTION: STAIRS - SCORE: 0-UNK COMPREHENSION: COMPREHENSION: TYPE: Visual COMPREHENSION - STEP 1: Does the patient require help from a person or device, or need extra time to understand complex and a bstract ideas (such as current events, finances, discharge planning, medical issues, relationships, e tc)? No. COMPREHENSION - STEP 2: Does the patient need extra time, require an assistive device (such as glasses for visual comprehensi on or a hearing aid for auditory comprehension) or does s/he have mild difficulty understanding compl ex and abstract information? Yes. COMPREHENSION - SCORE: 6-ROBBY EXPRESSION EXPRESSION: TYPE: Non-Vocal EXPRESSION - STEP 1: Does the patient require help from a person or device, or need extra time expressing complex and abst ract ideas (such as current events, finances, discharge planning, medical issues, relationships, etc) ? No. EXPRESSION - STEP 2: Does the patient need extra time, require an assistive device (such as augmentive communication syste m or a communication board), OR does s/he have mild difficulty expressing complex and abstract ideas (including mild dysarthria or mild word-find problems)? No. EXPRESSION - SCORE: 7-IND SOCIAL INTERACTION: SOCIAL INTERACTION - STEP 1: Does the patient require a helper to interact with others in social and therapeutic situations? No. SOCIAL INTERACTION - STEP 2: Does the patient need extra time in social situations, OR does s/he interact with staff, other patien ts, and family members ONLY in structured environments, OR does s/he require medication for social in teraction? No. SOCIAL INTERACTION - SCORE: 7-IND PROBLEM SOLVING: PROBLEM SOLVING - STEP 1: Does the patient need help from a person or device, or need extra time to solve complex problems such as managing a checking account or confronting interpersonal problems? Yes. PROBLEM SOLVING - STEP 2: Does the patient solve basic routine problems half or more of the time? Yes. PROBLEM SOLVING - STEP 3: How often does the patient need help to solve basic routine problems? Less than 10% of the time PROBLEM SOLVING - SCORE: 5-SUP MEMORY: MEMORY - STEP 1: Does the patient need help from a person or device, or need extra time to remember frequently encount ered people, daily routines, and executing requests? Yes. MEMORY - STEP 2: How often does the patient need help to remember frequently encountered people, daily routines, and e xecuting requests? Less than 10% of the time MEMORY - SCORE: 5-SUP SIGNATURE PANEL: The following modified sections: Eating - Score, Grooming - Score, Bathing - Score, Dressing - Upper Body - Score, Dressing - Lower Body - Score, Toileting - Score, Transfers: Bed, Chair, Wheelchair - S core, Transfers: Toilet - Score, Transfers: Shower - Score, Transfers: Tub - Score, Comprehension - S core, Expression - Score, Social Interaction - Score, Problem Solving - Score, Memory - Score were [e lectronically] signed by VALE Reyes on MonAug 17 2018 15:30:54 T-0600 ([place] Time)
[2018-08-17] MEDS ORDERED: LORAZEPAM 0.5 MG TABLET PO ONE (20:00)
[2018-08-17] MEDS: ATORVASTATIN 10 MG TAB PO SCH (20:07)
[2018-08-18] MEDS: TRAMADOL HCL 50 MG TAB PO SCH ×4 (00:30→20:13)
[2018-08-18] MEDS: ALBUTEROL 2.5 MG/3 ML NEB SOL NEB SCH ×4 (01:26→20:39)
--- NOTE | 2018-08-18 02:48 | FAST ---
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 Daniel Mane M.D. ADMISSION DIAGNOSIS: - Debility 16 - Debility (16) RIGHT 6TH RIB FRCATURE. EATING: Activity did not occur on this shift EATING - SCORE: 0-UNK GROOMING: Activity did not occur on this shift GROOMING - SCORE: 0-UNK BATHING: Activity did not occur on this shift BATHING - SCORE: 0-UNK DRESSING - UPPER BODY: Patient is not dressing in public clothing ARTICLES SCORE Total number of steps: 0 DRESSING - UPPER BODY - SCORE: 0-UNK DRESSING - LOWER BODY: Patient is not dressing in public clothing ARTICLES SCORE Total number of steps: 0 DRESSING - LOWER BODY - SCORE: 0-UNK TOILETING: TOILETING - STEP 1: Does the patient require the assistance of a person or device, or need extra time with toileting? Yes . TOILETING - STEP 2: Does the patient require the assistance of a helper? Yes. TOILETING - STEP 3: How much assistance does the patient require from the helper? Hands-on assistance from the helper TOILETING - STEP 4: Of the 3 tasks: 1) Adjusting clothing prior to use, 2) Cleansing of perineal area, 3) Adjusting clot stephenie after use; How many tasks does the patient perform WITHOUT assistance of the helper? No tasks; h kandace performs all three tasks TOILETING - SCORE: 1-DEP BLADDER MANAGEMENT: BLADDER MANAGEMENT - STEP 1: Does the patient control the bladder completely and intentionally without equipment or devices or med ications, and is always continent? No. BLADDER MANAGEMENT - STEP 2: Does the patient require the assistance of a helper? Yes. BLADDER MANAGEMENT - STEP 3: How much assistance does the patient require from the helper? Patient requires contact assistance fro m the helper BLADDER MANAGEMENT - STEP 4: How much contact assistance does the patient require from the helper? Patient requires minimal assist ance to maintain an external device - by positioning, and the patient performs 75% or more of bladder management tasks, while the helper provides less than 25% of the assistance to position patient on / off bedpan BLADDER MANAGEMENT - SCORE: 4-MIN BOWEL MANAGEMENT: Activity did not occur on this shift BOWEL MANAGEMENT - SCORE: 7-IND TRANSFERS: BED, CHAIR, WHEELCHAIR: TRANSFERS: BED, CHAIR, WHEELCHAIR - STEP 1: Does the patient require assistance of a person or device, or need extra time with bed, chair, or whe elchair transfers? Yes. TRANSFERS: BED, CHAIR, WHEELCHAIR - STEP 2: Does the patient require the assistance of a helper? Yes. TRANSFERS: BED, CHAIR, WHEELCHAIR - STEP 3: How much assistance does the patient require from the helper? Lifting of the legs TRANSFERS: BED, CHAIR, WHEELCHAIR - STEP 4: How many legs does the patient require the helper to lift? both legs TRANSFERS: BED, CHAIR, WHEELCHAIR - SCORE: 3-MOD TRANSFERS: TOILET: TRANSFERS: TOILET - STEP 1: Does the patient require the assistance of a person or device, or need extra time with toilet transfe rs? Yes. TRANSFERS: TOILET - STEP 2: Does the patient require the assistance of a helper? Yes. TRANSFERS: TOILET - STEP 3: How much assistance does the patient require from the helper? Patient performs half or more of the tr ansferring tasks TRANSFERS: TOILET - STEP 4: Does the patient need only incidental help such as contact guard or steadying during toilet transfer? No. Patient needs more than incidental help TRANSFERS: TOILET - SCORE: 3-MOD TRANSFERS: SHOWER: Activity did not occur on this shift TRANSFERS: SHOWER - SCORE: 0-UNK TRANSFERS: TUB: Activity did not occur on this shift TRANSFERS: TUB - SCORE: 0-UNK LOCOMOTION: WALK: Activity did not occur on this shift LOCOMOTION: WALK - SCORE: 0-UNK LOCOMOTION: WHEELCHAIR: Activity did not occur on this shift LOCOMOTION: WHEELCHAIR - SCORE: 0-UNK COMPREHENSION: COMPREHENSION: TYPE: Both COMPREHENSION - STEP 1: Does the patient require help from a person or device, or need extra time to understand complex and a bstract ideas (such as current events, finances, discharge planning, medical issues, relationships, e tc)? No. COMPREHENSION - STEP 2: Does the patient need extra time, require an assistive device (such as glasses for visual comprehensi on or a hearing aid for auditory comprehension) or does s/he have mild difficulty understanding compl ex and abstract information? Yes. COMPREHENSION - SCORE: 6-ROBBY EXPRESSION EXPRESSION: TYPE: Both EXPRESSION - STEP 1: Does the patient require help from a person or device, or need extra time expressing complex and abst ract ideas (such as current events, finances, discharge planning, medical issues, relationships, etc) ? No. EXPRESSION - STEP 2: Does the patient need extra time, require an assistive device (such as augmentive communication syste m or a communication board), OR does s/he have mild difficulty expressing complex and abstract ideas (including mild dysarthria or mild word-find problems)? Yes. EXPRESSION - SCORE: 6-ROBBY SOCIAL INTERACTION: SOCIAL INTERACTION - STEP 1: Does the patient require a helper to interact with others in social and therapeutic situations? No. SOCIAL INTERACTION - STEP 2: Does the patient need extra time in social situations, OR does s/he interact with staff, other patien ts, and family members ONLY in structured environments, OR does s/he require medication for social in teraction? Yes, patient needs extra time SOCIAL INTERACTION - SCORE: 6-ROBBY PROBLEM SOLVING: PROBLEM SOLVING - STEP 1: Does the patient need help from a person or device, or need extra time to solve complex problems such as managing a checking account or confronting interpersonal problems? No. PROBLEM SOLVING - STEP 2: Does the patient require extra time to make decisions or solve problems, OR does s/he have slight dif ficulty reading, initiating, or self-correcting in unfamiliar situations? Yes, patient needs extra ti me. PROBLEM SOLVING - SCORE: 6-ROBBY MEMORY: MEMORY - STEP 1: Does the patient need help from a person or device, or need extra time to remember frequently encount ered people, daily routines, and executing requests? No. MEMORY - STEP 2: Does the patient have slight difficulty recognizing frequently encountered people, daily routines, or executing requests without the need for repetition or using self-initiated or environmental cues to remember? Yes. MEMORY - SCORE: 6-ROBBY
[2018-08-18] MEDS: BISACODYL 10 MG RECTAL SUPP PR PRN (07:32)
[2018-08-18] MEDS: FLUTICASONE 50MCG NASAL SPRAY NAS SCH ×2 (08:00→20:13)
[2018-08-18] MEDS: levoFLOXacin 500 MG TAB PO SCH (08:11)
[2018-08-18] MEDS: GABAPENTIN 300 MG CAP PO SCH ×2 (08:12→20:12)
[2018-08-18] MEDS: ENOXAPARIN 40 MG/0.4 ML SQ SCH (08:12)
[2018-08-18] MEDS: ASPIRIN EC 81 MG TAB PO SCH (08:12)
[2018-08-18] MEDS: hydroCHLOROthiazide 12.5 MG CAP PO SCH (08:13)
[2018-08-18] MEDS: AMLODIPINE 5 MG TAB PO SCH ×2 (08:13→20:12)
[2018-08-18] MEDS: ESCITALOPRAM 20 MG TAB PO SCH (08:13)
[2018-08-18] MEDS: RAMIPRIL 5 MG CAP PO SCH ×2 (08:16→20:12)
[2018-08-18] MEDS: MECLIZINE HCL 12.5 MG TAB PO SCH ×2 (08:16→20:12)
[2018-08-18] MEDS: ARIPiprazole 5 MG TAB PO SCH (08:16)
[2018-08-18] MEDS: GUAIFENESIN 600 MG SA TAB PO SCH ×2 (08:16→20:12)
[2018-08-18] MEDS: LIDOCAINE 5% PATCH TOP SCH (08:16)
[2018-08-18] MEDS: DOCUSATE NA 100 MG CAP PO SCH ×2 (08:18→20:12)
[2018-08-18] MEDS: ACETYLCYST 20% 4 ML VIAL IH SCH ×2 (09:24→20:00)
--- NOTE | 2018-08-18 09:36 | FAST ---
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 Daniel Mane M.D. ADMISSION DIAGNOSIS: - Debility 16 - Debility (16) RIGHT 6TH RIB FRCATURE. EATING: EATING - STEP 1: Does the patient require the assistance of a person or device, or need extra time when eating? Yes. EATING - STEP 2: Does the patient require the assistance of a helper? Yes. EATING - STEP 3: Does the patient perform half or more of the eating tasks? Yes. EATING - STEP 4: Does the patient need only supervision, cuing, coaxing OR help to apply an orthosis OR help to cut fo od, open containers, pour liquids, or butter bread? Yes. EATING - SCORE: 5-SUP GROOMING: Comb/brush hair Oral care Wash, rinse, and dry face Wash, rinse, and dry hands GROOMING - STEP 1: Does the patient require the assistance of a person or device, or need extra time when grooming? Yes. GROOMING - STEP 2: Does the patient require the assistance of a helper? Yes. GROOMING - STEP 3: How much assistance does the patient require from the helper? Only prior equipment preparation/set up from the helper GROOMING - SCORE: 5-SUP BATHING: Activity did not occur on this shift BATHING - SCORE: 0-UNK DRESSING - UPPER BODY: T-shirt/pullover shirt (four steps) ARTICLES SCORE Total number of steps: 4 DRESSING - UPPER BODY - STEP 1: Does the patient require help from a person or device, or need extra time when dressing above the meek st? Yes. DRESSING - UPPER BODY - STEP 2: Does the patient require the assistance of a helper? Yes. DRESSING - UPPER BODY - STEP 3: Does the helper touch the patient while dressing? Yes. DRESSING - UPPER BODY - STEP 4: How many of the total steps does the patient complete on his/her own? 4 DRESSING - UPPER BODY - SCORE: 4-MIN DRESSING - LOWER BODY: ARTICLES SCORE Total number of steps: 13 DRESSING - LOWER BODY - STEP 1: Does the patient require help from a person or device, or need extra time when dressing below the meek st? Yes. DRESSING - LOWER BODY - STEP 2: Does the patient require the assistance of a helper? Yes. DRESSING - LOWER BODY - STEP 3: Does the helper touch the patient while dressing? Yes. DRESSING - LOWER BODY - STEP 4: How many of the total steps does the patient complete on his/her own? 6 DRESSING - LOWER BODY - STEP 5: Does patient require total assistance for dressing below the waist such as the helper holding clothin g and performing basically all the activities? Yes. DRESSING - LOWER BODY - SCORE: 1-DEP TOILETING: TOILETING - STEP 1: Does the patient require the assistance of a person or device, or need extra time with toileting? Yes . TOILETING - STEP 2: Does the patient require the assistance of a helper? Yes. TOILETING - STEP 3: How much assistance does the patient require from the helper? Hands-on assistance from the helper TOILETING - STEP 4: Of the 3 tasks: 1) Adjusting clothing prior to use, 2) Cleansing of perineal area, 3) Adjusting clot stephenie after use; How many tasks does the patient perform WITHOUT assistance of the helper? Two tasks TOILETING - SCORE: 3-MOD BLADDER MANAGEMENT: BLADDER MANAGEMENT - STEP 1: Does the patient control the bladder completely and intentionally without equipment or devices or med ications, and is always continent? No. BLADDER MANAGEMENT - STEP 2: Does the patient require the assistance of a helper? No, patient requires and independently uses an a ssistive device, such as a urinal, bedpan, bedside commode, catheter, absorbent pad, or collecting de vice BLADDER MANAGEMENT - SCORE: 6-ROBBY BOWEL MANAGEMENT: [place] removes incontinent device (depends, pull ups, etc.); cleans the patient after accident / inco ntinent episode; and, applies new device (depends, pull-ups, padding, etc.). BOWEL MANAGEMENT - SCORE: 1-DEP BOWEL MANAGEMENT - FREQUENCY OF ACCIDENTS: BOWEL MANAGEMENT(FA) - STEP 1: How many accidents has the patient had during the current shift? 3 TRANSFERS: BED, CHAIR, WHEELCHAIR: TRANSFERS: BED, CHAIR, WHEELCHAIR - STEP 1: Does the patient require assistance of a person or device, or need extra time with bed, chair, or whe elchair transfers? Yes. TRANSFERS: BED, CHAIR, WHEELCHAIR - STEP 2: Does the patient require the assistance of a helper? Yes. TRANSFERS: BED, CHAIR, WHEELCHAIR - STEP 3: How much assistance does the patient require from the helper? Steadying/guiding assistance TRANSFERS: BED, CHAIR, WHEELCHAIR - SCORE: 4-MIN TRANSFERS: TOILET: TRANSFERS: TOILET - STEP 1: Does the patient require the assistance of a person or device, or need extra time with toilet transfe rs? Yes. TRANSFERS: TOILET - STEP 2: Does the patient require the assistance of a helper? Yes. TRANSFERS: TOILET - STEP 3: How much assistance does the patient require from the helper? Patient performs half or more of the tr ansferring tasks TRANSFERS: TOILET - STEP 4: Does the patient need only incidental help such as contact guard or steadying during toilet transfer? Yes. TRANSFERS: TOILET - SCORE: 4-MIN TRANSFERS: SHOWER: Activity did not occur on this shift TRANSFERS: SHOWER - SCORE: 0-UNK TRANSFERS: TUB: Activity did not occur on this shift TRANSFERS: TUB - SCORE: 0-UNK LOCOMOTION: WALK: Activity did not occur on this shift LOCOMOTION: WALK - SCORE: 0-UNK LOCOMOTION: WHEELCHAIR: Activity did not occur on this shift LOCOMOTION: WHEELCHAIR - SCORE: 0-UNK COMPREHENSION: COMPREHENSION: TYPE: Both COMPREHENSION - STEP 1: Does the patient require help from a person or device, or need extra time to understand complex and a bstract ideas (such as current events, finances, discharge planning, medical issues, relationships, e tc)? No. COMPREHENSION - STEP 2: Does the patient need extra time, require an assistive device (such as glasses for visual comprehensi on or a hearing aid for auditory comprehension) or does s/he have mild difficulty understanding compl ex and abstract information? Yes. COMPREHENSION - SCORE: 6-ROBBY EXPRESSION EXPRESSION: TYPE: Both EXPRESSION - STEP 1: Does the patient require help from a person or device, or need extra time expressing complex and abst ract ideas (such as current events, finances, discharge planning, medical issues, relationships, etc) ? No. EXPRESSION - STEP 2: Does the patient need extra time, require an assistive device (such as augmentive communication syste m or a communication board), OR does s/he have mild difficulty expressing complex and abstract ideas (including mild dysarthria or mild word-find problems)? Yes. EXPRESSION - SCORE: 6-ROBBY SOCIAL INTERACTION: SOCIAL INTERACTION - STEP 1: Does the patient require a helper to interact with others in social and therapeutic situations? Yes. SOCIAL INTERACTION - STEP 2: Does the patient interact appropriately half or more of the time? Yes. SOCIAL INTERACTION - STEP 3: How often does the patient need help to interact appropriately? Less than 10% of the time SOCIAL INTERACTION - SCORE: 5-SUP PROBLEM SOLVING: PROBLEM SOLVING - STEP 1: Does the patient need help from a person or device, or need extra time to solve complex problems such as managing a checking account or confronting interpersonal problems? Yes. PROBLEM SOLVING - STEP 2: Does the patient solve basic routine problems half or more of the time? Yes. PROBLEM SOLVING - STEP 3: How often does the patient need help to solve basic routine problems? Less than 10% of the time PROBLEM SOLVING - SCORE: 5-SUP MEMORY: MEMORY - STEP 1: Does the patient need help from a person or device, or need extra time to remember frequently encount ered people, daily routines, and executing requests? Yes. MEMORY - STEP 2: How often does the patient need help to remember frequently encountered people, daily routines, and e xecuting requests? Less than 10% of the time MEMORY - SCORE: 5-SUP SIGNATURE PANEL: The following modified sections: Eating - Score, Grooming - Score, Bathing - Score, Dressing - Upper Body - Score, Dressing - Lower Body - Score, Toileting - Score, Bladder Management - Score, Bowel Man agement - Score, Transfers: Bed, Chair, Wheelchair - Score, Transfers: Toilet - Score, Transfers: Kayla wer - Score, Transfers: Tub - Score, Locomotion: Walk - Score, Locomotion: Wheelchair - Score, Compre hension - Score, Expression - Score, Social Interaction - Score, Problem Solving - Score, Memory - Sc ore were [electronically] signed by Cali Barron on Sat Aug 18 2018 09:36:21 GMT-0600 (Central Standard Time)
[2018-08-18] MEDS: HYDROCODONE/APAP 5/325 MG TAB PO PRN ×2 (09:59→16:32)
--- NOTE | 2018-08-18 16:32 | PN ---
Date of Progress Note: 08/17/2018 Subjective: The patient was seen this morning for followup. He still has lot of cough and chest con gestion. Has trouble coughing up mucus and as of yesterday evening Mucomyst treatment was started al roxy with his nebulizer treatment, and so far he has received only 1 treatment and reported that he fe lt little bit better with that. Objective: Vital Signs: Reviewed. HEENT: Unremarkable. Lungs: Clear to auscultation. No rhonchi or rales. Heart: Sounds normal. Abdomen: Soft. Bowel sounds normal. No guarding, rigidity, tenderness, distention. Extremities: No leg edema. Impression: 1.Pneumonia. 2.Stroke with right-sided hemiparesis. 3.Debility. Plan: We will go ahead and continue current nebulizer treatment with Mucomyst. Continue guaifenesin and continue Levaquin. Physical therapy will be continued per order from Dr. Mane. I will see him tomorrow for followup. DAWNA/MODL Voice ID: [id number] Report ID: [id number]
--- NOTE | 2018-08-18 16:40 | PN ---
Date of Progress Note: 08/18/2018 Subjective: The patient was seen this morning for followup. He reports that his cough, congestion a re much better with the current treatment. He is having bowel movement, but says it is a small amoun t of little formed to hard stool. Objective: Vital Signs: Reviewed. HEENT: Unremarkable. Lungs: Clear to auscultation. No rhonchi. No rales. Heart: Sounds normal. Abdomen: Soft. Bowel sounds normal. No guarding, rigidity, tenderness, distention. Extremities: No leg edema. Impression: 1.Constipation. 2.Pneumonia. 3.Hypertension. 4.Debility. Plan: We will continue current medications, antibiotics, which is Levaquin. Continue current nebuli zer treatment with Mucomyst. The patient is responding well. We will go ahead and increase dose of Colace from 100 mg 2 times a day up to 200 mg 2 times a day. I will see him tomorrow for followup. DAWNA/MODFidelia Voice ID: [id number] Report ID: [id number]
[2018-08-18] MEDS: ATORVASTATIN 10 MG TAB PO SCH (20:11)
[2018-08-19] MEDS: TRAMADOL HCL 50 MG TAB PO SCH ×4 (01:02→21:19)
[2018-08-19] MEDS: ALBUTEROL 2.5 MG/3 ML NEB SOL NEB SCH ×4 (02:04→20:10)
--- NOTE | 2018-08-19 02:09 | FAST ---
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 Daniel Mane M.D. ADMISSION DIAGNOSIS: - Debility 16 - Debility (16) RIGHT 6TH RIB FRCATURE. EATING: Activity did not occur on this shift EATING - SCORE: 0-UNK GROOMING: Activity did not occur on this shift GROOMING - SCORE: 0-UNK BATHING: Activity did not occur on this shift BATHING - SCORE: 0-UNK DRESSING - UPPER BODY: Patient is not dressing in public clothing ARTICLES SCORE Total number of steps: 0 DRESSING - UPPER BODY - SCORE: 0-UNK DRESSING - LOWER BODY: Patient is not dressing in public clothing ARTICLES SCORE Total number of steps: 0 DRESSING - LOWER BODY - SCORE: 0-UNK TOILETING: Activity did not occur on this shift TOILETING - SCORE: 0-UNK BLADDER MANAGEMENT: [place] removes incontinent device (Depends, pull ups, etc.); cleans the patient after accident / inco ntinent episode; and, applies new incontinent device. BLADDER MANAGEMENT - SCORE: 1-DEP BOWEL MANAGEMENT: Activity did not occur on this shift BOWEL MANAGEMENT - SCORE: 7-IND TRANSFERS: BED, CHAIR, WHEELCHAIR: Activity did not occur on this shift TRANSFERS: BED, CHAIR, WHEELCHAIR - SCORE: 0-UNK TRANSFERS: TOILET: Activity did not occur on this shift TRANSFERS: TOILET - SCORE: 0-UNK TRANSFERS: SHOWER: Activity did not occur on this shift TRANSFERS: SHOWER - SCORE: 0-UNK TRANSFERS: TUB: Activity did not occur on this shift TRANSFERS: TUB - SCORE: 0-UNK LOCOMOTION: WALK: Activity did not occur on this shift LOCOMOTION: WALK - SCORE: 0-UNK LOCOMOTION: WHEELCHAIR: Activity did not occur on this shift LOCOMOTION: WHEELCHAIR - SCORE: 0-UNK COMPREHENSION: COMPREHENSION: TYPE: Both COMPREHENSION - STEP 1: Does the patient require help from a person or device, or need extra time to understand complex and a bstract ideas (such as current events, finances, discharge planning, medical issues, relationships, e tc)? No. COMPREHENSION - STEP 2: Does the patient need extra time, require an assistive device (such as glasses for visual comprehensi on or a hearing aid for auditory comprehension) or does s/he have mild difficulty understanding compl ex and abstract information? Yes. COMPREHENSION - SCORE: 6-ROBBY EXPRESSION EXPRESSION: TYPE: Both EXPRESSION - STEP 1: Does the patient require help from a person or device, or need extra time expressing complex and abst ract ideas (such as current events, finances, discharge planning, medical issues, relationships, etc) ? Yes. EXPRESSION - STEP 2: Does the patient require help to express basic necessities or ideas (such as hunger, thirst, sleep, s afety, daily schedule, room location, or discomfort) half or more of the time? No. EXPRESSION - STEP 3: How often does the patient need help to express directions and conversation about basic needs? Less t watt 10% of the time EXPRESSION - SCORE: 5-SUP SOCIAL INTERACTION: SOCIAL INTERACTION - STEP 1: Does the patient require a helper to interact with others in social and therapeutic situations? No. SOCIAL INTERACTION - STEP 2: Does the patient need extra time in social situations, OR does s/he interact with staff, other patien ts, and family members ONLY in structured environments, OR does s/he require medication for social in teraction? Yes, patient needs extra time SOCIAL INTERACTION - SCORE: 6-ROBBY PROBLEM SOLVING: PROBLEM SOLVING - STEP 1: Does the patient need help from a person or device, or need extra time to solve complex problems such as managing a checking account or confronting interpersonal problems? No. PROBLEM SOLVING - STEP 2: Does the patient require extra time to make decisions or solve problems, OR does s/he have slight dif ficulty reading, initiating, or self-correcting in unfamiliar situations? Yes, patient needs extra ti me. PROBLEM SOLVING - SCORE: 6-ROBBY MEMORY: MEMORY - STEP 1: Does the patient need help from a person or device, or need extra time to remember frequently encount ered people, daily routines, and executing requests? No. MEMORY - STEP 2: Does the patient have slight difficulty recognizing frequently encountered people, daily routines, or executing requests without the need for repetition or using self-initiated or environmental cues to remember? No. MEMORY - SCORE: 7-IND SIGNATURE PANEL: The following modified sections: Eating - Score, Grooming - Score, Bathing - Score, Dressing - Upper Body - Score, Dressing - Lower Body - Score, Toileting - Score, Bladder Management - Score, Bowel Man agement - Score, Transfers: Bed, Chair, Wheelchair - Score, Transfers: Toilet - Score, Transfers: Kayla wer - Score, Transfers: Tub - Score, Locomotion: Walk - Score, Locomotion: Wheelchair - Score, Compre hension - Score, Expression - Score, Social Interaction - Score, Problem Solving - Score, Memory - Sc ore were [electronically] signed by Milly Arteaga CNA on MonAug 19 2018 02:08:38 T-0600 ([facility])
[2018-08-19] MEDS: LIDOCAINE 5% PATCH TOP SCH (07:12)
[2018-08-19] MEDS: MECLIZINE HCL 12.5 MG TAB PO SCH ×2 (07:12→21:17)
[2018-08-19] MEDS: ARIPiprazole 5 MG TAB PO SCH (07:12)
[2018-08-19] MEDS: ASPIRIN EC 81 MG TAB PO SCH (07:12)
[2018-08-19] MEDS: ENOXAPARIN 40 MG/0.4 ML SQ SCH (07:12)
[2018-08-19] MEDS: DOCUSATE NA 100 MG CAP PO SCH ×2 (07:12→21:17)
[2018-08-19] MEDS: levoFLOXacin 500 MG TAB PO SCH (07:13)
[2018-08-19] MEDS: GABAPENTIN 300 MG CAP PO SCH ×2 (07:13→21:18)
[2018-08-19] MEDS: GUAIFENESIN 600 MG SA TAB PO SCH ×2 (07:13→21:18)
[2018-08-19] MEDS: ESCITALOPRAM 20 MG TAB PO SCH (07:13)
[2018-08-19] MEDS: ACETYLCYST 20% 4 ML VIAL IH SCH ×2 (07:29→20:10)
[2018-08-19] MEDS: FLUTICASONE 50MCG NASAL SPRAY NAS SCH ×2 (08:00→21:18)
[2018-08-19] MEDS: AMLODIPINE 5 MG TAB PO SCH ×2 (08:04→21:18)
[2018-08-19] MEDS: HYDROCODONE/APAP 5/325 MG TAB PO PRN ×3 (08:04→18:09)
[2018-08-19] MEDS: hydroCHLOROthiazide 12.5 MG CAP PO SCH (08:05)
[2018-08-19] MEDS: RAMIPRIL 5 MG CAP PO SCH ×2 (08:05→21:18)
--- NOTE | 2018-08-19 10:32 | FAST ---
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 Daniel Mane M.D. ADMISSION DIAGNOSIS: - Debility 16 - Debility (16) RIGHT 6TH RIB FRCATURE. EATING: EATING - STEP 1: Does the patient require the assistance of a person or device, or need extra time when eating? Yes. EATING - STEP 2: Does the patient require the assistance of a helper? Yes. EATING - STEP 3: Does the patient perform half or more of the eating tasks? Yes. EATING - STEP 4: Does the patient need only supervision, cuing, coaxing OR help to apply an orthosis OR help to cut fo od, open containers, pour liquids, or butter bread? Yes. EATING - SCORE: 5-SUP GROOMING: Comb/brush hair Oral care GROOMING - STEP 1: Does the patient require the assistance of a person or device, or need extra time when grooming? Yes. GROOMING - STEP 2: Does the patient require the assistance of a helper? Yes. GROOMING - STEP 3: How much assistance does the patient require from the helper? Only prior equipment preparation/set up from the helper GROOMING - SCORE: 5-SUP BATHING: Activity did not occur on this shift BATHING - SCORE: 0-UNK DRESSING - UPPER BODY: T-shirt/pullover shirt (four steps) ARTICLES SCORE Total number of steps: 4 DRESSING - UPPER BODY - STEP 1: Does the patient require help from a person or device, or need extra time when dressing above the meek st? Yes. DRESSING - UPPER BODY - STEP 2: Does the patient require the assistance of a helper? Yes. DRESSING - UPPER BODY - STEP 3: Does the helper touch the patient while dressing? Yes. DRESSING - UPPER BODY - STEP 4: How many of the total steps does the patient complete on his/her own? 4 DRESSING - UPPER BODY - SCORE: 4-MIN DRESSING - LOWER BODY: ARTICLES SCORE Total number of steps: 6 DRESSING - LOWER BODY - STEP 1: Does the patient require help from a person or device, or need extra time when dressing below the meek st? Yes. DRESSING - LOWER BODY - STEP 2: Does the patient require the assistance of a helper? Yes. DRESSING - LOWER BODY - STEP 3: Does the helper touch the patient while dressing? Yes. DRESSING - LOWER BODY - STEP 4: How many of the total steps does the patient complete on his/her own? 2 DRESSING - LOWER BODY - STEP 5: Does patient require total assistance for dressing below the waist such as the helper holding clothin g and performing basically all the activities? No. DRESSING - LOWER BODY - SCORE: 2-MAX TOILETING: TOILETING - STEP 1: Does the patient require the assistance of a person or device, or need extra time with toileting? Yes . TOILETING - STEP 2: Does the patient require the assistance of a helper? Yes. TOILETING - STEP 3: How much assistance does the patient require from the helper? Hands-on assistance from the helper TOILETING - STEP 4: Of the 3 tasks: 1) Adjusting clothing prior to use, 2) Cleansing of perineal area, 3) Adjusting clot stephenie after use; How many tasks does the patient perform WITHOUT assistance of the helper? One task TOILETING - SCORE: 2-MAX BLADDER MANAGEMENT: [place] removes incontinent device (Depends, pull ups, etc.); cleans the patient after accident / inco ntinent episode; and, applies new incontinent device. BLADDER MANAGEMENT - SCORE: 1-DEP BLADDER MANAGEMENT - FREQUENCY OF ACCIDENTS: BLADDER MANAGEMENT(FA) - STEP 1: How many accidents has the patient had during the current shift? 3 BOWEL MANAGEMENT: Activity did not occur on this shift BOWEL MANAGEMENT - SCORE: 7-IND TRANSFERS: BED, CHAIR, WHEELCHAIR: TRANSFERS: BED, CHAIR, WHEELCHAIR - STEP 1: Does the patient require assistance of a person or device, or need extra time with bed, chair, or whe elchair transfers? Yes. TRANSFERS: BED, CHAIR, WHEELCHAIR - STEP 2: Does the patient require the assistance of a helper? Yes. TRANSFERS: BED, CHAIR, WHEELCHAIR - STEP 3: How much assistance does the patient require from the helper? Steadying/guiding assistance TRANSFERS: BED, CHAIR, WHEELCHAIR - SCORE: 4-MIN TRANSFERS: TOILET: TRANSFERS: TOILET - STEP 1: Does the patient require the assistance of a person or device, or need extra time with toilet transfe rs? Yes. TRANSFERS: TOILET - STEP 2: Does the patient require the assistance of a helper? Yes. TRANSFERS: TOILET - STEP 3: How much assistance does the patient require from the helper? Patient performs half or more of the tr ansferring tasks TRANSFERS: TOILET - STEP 4: Does the patient need only incidental help such as contact guard or steadying during toilet transfer? Yes. TRANSFERS: TOILET - SCORE: 4-MIN TRANSFERS: SHOWER: Activity did not occur on this shift TRANSFERS: SHOWER - SCORE: 0-UNK TRANSFERS: TUB: Activity did not occur on this shift TRANSFERS: TUB - SCORE: 0-UNK LOCOMOTION: WALK: Activity did not occur on this shift LOCOMOTION: WALK - SCORE: 0-UNK LOCOMOTION: WHEELCHAIR: Activity did not occur on this shift LOCOMOTION: WHEELCHAIR - SCORE: 0-UNK COMPREHENSION: COMPREHENSION: TYPE: Both COMPREHENSION - STEP 1: Does the patient require help from a person or device, or need extra time to understand complex and a bstract ideas (such as current events, finances, discharge planning, medical issues, relationships, e tc)? No. COMPREHENSION - STEP 2: Does the patient need extra time, require an assistive device (such as glasses for visual comprehensi on or a hearing aid for auditory comprehension) or does s/he have mild difficulty understanding compl ex and abstract information? Yes. COMPREHENSION - SCORE: 6-ROBBY EXPRESSION EXPRESSION: TYPE: Both EXPRESSION - STEP 1: Does the patient require help from a person or device, or need extra time expressing complex and abst ract ideas (such as current events, finances, discharge planning, medical issues, relationships, etc) ? No. EXPRESSION - STEP 2: Does the patient need extra time, require an assistive device (such as augmentive communication syste m or a communication board), OR does s/he have mild difficulty expressing complex and abstract ideas (including mild dysarthria or mild word-find problems)? Yes. EXPRESSION - SCORE: 6-ROBBY SOCIAL INTERACTION: SOCIAL INTERACTION - STEP 1: Does the patient require a helper to interact with others in social and therapeutic situations? No. SOCIAL INTERACTION - STEP 2: Does the patient need extra time in social situations, OR does s/he interact with staff, other patien ts, and family members ONLY in structured environments, OR does s/he require medication for social in teraction? Yes, patient needs extra time SOCIAL INTERACTION - SCORE: 6-ROBBY PROBLEM SOLVING: PROBLEM SOLVING - STEP 1: Does the patient need help from a person or device, or need extra time to solve complex problems such as managing a checking account or confronting interpersonal problems? No. PROBLEM SOLVING - STEP 2: Does the patient require extra time to make decisions or solve problems, OR does s/he have slight dif ficulty reading, initiating, or self-correcting in unfamiliar situations? Yes, patient needs extra ti me. PROBLEM SOLVING - SCORE: 6-ROBBY MEMORY: MEMORY - STEP 1: Does the patient need help from a person or device, or need extra time to remember frequently encount ered people, daily routines, and executing requests? No. MEMORY - STEP 2: Does the patient have slight difficulty recognizing frequently encountered people, daily routines, or executing requests without the need for repetition or using self-initiated or environmental cues to remember? Yes. MEMORY - SCORE: 6-ROBBY SIGNATURE PANEL: The following modified sections: Eating - Score, Grooming - Score, Bathing - Score, Dressing - Upper Body - Score, Dressing - Lower Body - Score, Toileting - Score, Bladder Management - Score, Bowel Man agement - Score, Transfers: Bed, Chair, Wheelchair - Score, Transfers: Toilet - Score, Transfers: Kayla wer - Score, Transfers: Tub - Score, Locomotion: Walk - Score, Locomotion: Wheelchair - Score, Compre hension - Score, Expression - Score, Social Interaction - Score, Problem Solving - Score, Memory - Sc ore were [electronically] signed by Cali Barron on MonAug 19 2018 10:31:04 GMT-0600 (Central Standard Time)
--- NOTE | 2018-08-19 16:20 | PN ---
Date of Progress Note: 08/19/2018 Subjective: The patient was seen this morning for followup. He was sitting in wheelchair. Denies a ny complaints. Had a bowel movement yesterday and reports that his cough and chest congestion are mu ch better with this current combination treatment that he is getting. Objective: Vital Signs: Reviewed. HEENT: Unremarkable. Lungs: Clear to auscultation. Heart: Heart sounds normal. Abdomen: Soft. Bowel sounds normal. No guarding, rigidity, tenderness, or distention. Extremities: No leg edema. Impression: 1.Stroke with right-sided hemiparesis. 2.Debility. 3.Hypertension. 4.Pneumonia. 5.Prostate cancer. Plan: At this point, we will continue his current nebulizer treatment with Mucomyst. The patient is on Levaquin and we probably will end up stopping his antibiotic either today or tomorrow as he has r eceived adequate number of days of antibiotic for the pneumonia. Continue other current medical jessy gement for constipation, and his stool softener dose was increased yesterday. The patient is schedul ed to go home on Monday. I will see him tomorrow for followup. DAWNA/MODL Voice ID: [id number] Report ID: [id number]
[2018-08-19] MEDS: BISACODYL 10 MG RECTAL SUPP PR PRN (18:16)
[2018-08-19] MEDS: ATORVASTATIN 10 MG TAB PO SCH (21:17)
[2018-08-20] MEDS: ALBUTEROL 2.5 MG/3 ML NEB SOL NEB SCH ×4 (02:00→19:35)
[2018-08-20] MEDS: TRAMADOL HCL 50 MG TAB PO SCH ×4 (02:25→20:19)
--- NOTE | 2018-08-20 02:34 | FAST ---
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 Daniel Mane M.D. ADMISSION DIAGNOSIS: - Debility 16 - Debility (16) RIGHT 6TH RIB FRCATURE. EATING: Activity did not occur on this shift EATING - SCORE: 0-UNK GROOMING: Activity did not occur on this shift GROOMING - SCORE: 0-UNK BATHING: Activity did not occur on this shift BATHING - SCORE: 0-UNK DRESSING - UPPER BODY: Patient is not dressing in public clothing ARTICLES SCORE Total number of steps: 0 DRESSING - UPPER BODY - SCORE: 0-UNK DRESSING - LOWER BODY: Patient is not dressing in public clothing ARTICLES SCORE Total number of steps: 0 DRESSING - LOWER BODY - SCORE: 0-UNK TOILETING: TOILETING - STEP 1: Does the patient require the assistance of a person or device, or need extra time with toileting? Yes . TOILETING - STEP 2: Does the patient require the assistance of a helper? Yes. TOILETING - STEP 3: How much assistance does the patient require from the helper? Hands-on assistance from the helper TOILETING - STEP 4: Of the 3 tasks: 1) Adjusting clothing prior to use, 2) Cleansing of perineal area, 3) Adjusting clot stephenie after use; How many tasks does the patient perform WITHOUT assistance of the helper? No tasks; h elper performs all three tasks TOILETING - SCORE: 1-DEP BLADDER MANAGEMENT: [place] removes incontinent device (Depends, pull ups, etc.); cleans the patient after accident / inco ntinent episode; and, applies new incontinent device. BLADDER MANAGEMENT - SCORE: 1-DEP BOWEL MANAGEMENT: [place] removes incontinent device (depends, pull ups, etc.); cleans the patient after accident / inco ntinent episode; and, applies new device (depends, pull-ups, padding, etc.). BOWEL MANAGEMENT - SCORE: 1-DEP BOWEL MANAGEMENT - FREQUENCY OF ACCIDENTS: BOWEL MANAGEMENT(FA) - STEP 1: How many accidents has the patient had during the current shift? 1 TRANSFERS: BED, CHAIR, WHEELCHAIR: TRANSFERS: BED, CHAIR, WHEELCHAIR - STEP 1: Does the patient require assistance of a person or device, or need extra time with bed, chair, or whe elchair transfers? Yes. TRANSFERS: BED, CHAIR, WHEELCHAIR - STEP 2: Does the patient require the assistance of a helper? Yes. TRANSFERS: BED, CHAIR, WHEELCHAIR - STEP 3: How much assistance does the patient require from the helper? Lifting of the legs TRANSFERS: BED, CHAIR, WHEELCHAIR - STEP 4: How many legs does the patient require the helper to lift? both legs TRANSFERS: BED, CHAIR, WHEELCHAIR - SCORE: 3-MOD TRANSFERS: TOILET: TRANSFERS: TOILET - STEP 1: Does the patient require the assistance of a person or device, or need extra time with toilet transfe rs? Yes. TRANSFERS: TOILET - STEP 2: Does the patient require the assistance of a helper? Yes. TRANSFERS: TOILET - STEP 3: How much assistance does the patient require from the helper? Patient performs half or more of the tr ansferring tasks TRANSFERS: TOILET - STEP 4: Does the patient need only incidental help such as contact guard or steadying during toilet transfer? Yes. TRANSFERS: TOILET - SCORE: 4-MIN TRANSFERS: SHOWER: Activity did not occur on this shift TRANSFERS: SHOWER - SCORE: 0-UNK TRANSFERS: TUB: Activity did not occur on this shift TRANSFERS: TUB - SCORE: 0-UNK LOCOMOTION: WALK: Activity did not occur on this shift LOCOMOTION: WALK - SCORE: 0-UNK LOCOMOTION: WHEELCHAIR: Activity did not occur on this shift LOCOMOTION: WHEELCHAIR - SCORE: 0-UNK COMPREHENSION: COMPREHENSION: TYPE: Both COMPREHENSION - STEP 1: Does the patient require help from a person or device, or need extra time to understand complex and a bstract ideas (such as current events, finances, discharge planning, medical issues, relationships, e tc)? Yes. COMPREHENSION - STEP 2: Does the patient require help to understand questions or statements about basic needs or ideas (such as hunger, thirst, sleep, safety, daily schedule, room location, or discomfort) half or more of the t madeleine? No. COMPREHENSION - STEP 3: How often does the patient need help to understand directions and conversation about basic needs? 10% - 24% of the time COMPREHENSION - SCORE: 4-MIN EXPRESSION EXPRESSION: TYPE: Both EXPRESSION - STEP 1: Does the patient require help from a person or device, or need extra time expressing complex and abst ract ideas (such as current events, finances, discharge planning, medical issues, relationships, etc) ? Yes. EXPRESSION - STEP 2: Does the patient require help to express basic necessities or ideas (such as hunger, thirst, sleep, s afety, daily schedule, room location, or discomfort) half or more of the time? No. EXPRESSION - STEP 3: How often does the patient need help to express directions and conversation about basic needs? 10-24% of the time EXPRESSION - SCORE: 4-MIN SOCIAL INTERACTION: SOCIAL INTERACTION - STEP 1: Does the patient require a helper to interact with others in social and therapeutic situations? No. SOCIAL INTERACTION - STEP 2: Does the patient need extra time in social situations, OR does s/he interact with staff, other patien ts, and family members ONLY in structured environments, OR does s/he require medication for social in teraction? Yes, patient needs extra time SOCIAL INTERACTION - SCORE: 6-ROBBY PROBLEM SOLVING: PROBLEM SOLVING - STEP 1: Does the patient need help from a person or device, or need extra time to solve complex problems such as managing a checking account or confronting interpersonal problems? Yes. PROBLEM SOLVING - STEP 2: Does the patient solve basic routine problems half or more of the time? Yes. PROBLEM SOLVING - STEP 3: How often does the patient need help to solve basic routine problems? 10%-24% of the time PROBLEM SOLVING - SCORE: 4-MIN MEMORY: MEMORY - STEP 1: Does the patient need help from a person or device, or need extra time to remember frequently encount ered people, daily routines, and executing requests? Yes. MEMORY - STEP 2: How often does the patient need help to remember frequently encountered people, daily routines, and e xecuting requests? 10% - 24% of the time MEMORY - SCORE: 4-MIN SIGNATURE PANEL: The following modified sections: Eating - Score, Grooming - Score, Bathing - Score, Dressing - Upper Body - Score, Dressing - Lower Body - Score, Toileting - Score, Bladder Management - Score, Bowel Man agement - Score, Transfers: Bed, Chair, Wheelchair - Score, Transfers: Toilet - Score, Transfers: Kayla wer - Score, Transfers: Tub - Score, Locomotion: Walk - Score, Locomotion: Wheelchair - Score, Compre hension - Score, Expression - Score, Social Interaction - Score, Problem Solving - Score, Memory - Sc ore were [electronically] signed by Milly Arteaga CNA on MonAug 20 2018 02:34:17 T-0600 ([facility])
[2018-08-20] MEDS: ACETYLCYST 20% 4 ML VIAL IH SCH ×2 (07:25→19:36)
[2018-08-20] MEDS: FLUTICASONE 50MCG NASAL SPRAY NAS SCH ×2 (08:00→20:21)
[2018-08-20] MEDS: ENOXAPARIN 40 MG/0.4 ML SQ SCH (09:32)
[2018-08-20] MEDS: LIDOCAINE 5% PATCH TOP SCH (09:32)
[2018-08-20] MEDS: GABAPENTIN 300 MG CAP PO SCH ×2 (09:33→20:21)
[2018-08-20] MEDS: GUAIFENESIN 600 MG SA TAB PO SCH ×2 (09:33→20:20)
[2018-08-20] MEDS: ESCITALOPRAM 20 MG TAB PO SCH (09:33)
[2018-08-20] MEDS: MECLIZINE HCL 12.5 MG TAB PO SCH ×2 (09:33→20:21)
[2018-08-20] MEDS: RAMIPRIL 5 MG CAP PO SCH ×2 (09:33→20:20)
[2018-08-20] MEDS: DOCUSATE NA 100 MG CAP PO SCH ×2 (09:34→20:20)
[2018-08-20] MEDS: AMLODIPINE 5 MG TAB PO SCH ×2 (09:34→20:21)
[2018-08-20] MEDS: ARIPiprazole 5 MG TAB PO SCH (09:34)
[2018-08-20] MEDS: hydroCHLOROthiazide 12.5 MG CAP PO SCH (09:34)
[2018-08-20] MEDS: levoFLOXacin 500 MG TAB PO SCH (09:34)
[2018-08-20] MEDS: ASPIRIN EC 81 MG TAB PO SCH (09:34)
[2018-08-20] MEDS: IPRATROPIUM BROM 0.5MG/2.5ML NEB PRN (14:42)
--- NOTE | 2018-08-20 15:17 | FAST ---
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 Daniel Mane M.D. ADMISSION DIAGNOSIS: - Debility 16 - Debility (16) RIGHT 6TH RIB FRCATURE. EATING: Activity did not occur on this shift EATING - SCORE: 0-UNK GROOMING: Activity did not occur on this shift GROOMING - SCORE: 0-UNK BATHING: Activity did not occur on this shift BATHING - SCORE: 0-UNK DRESSING - UPPER BODY: Activity did not occur on this shift Patient is not dressing in public clothing ARTICLES SCORE Total number of steps: 0 DRESSING - UPPER BODY - SCORE: 0-UNK DRESSING - LOWER BODY: Activity did not occur on this shift Patient is not dressing in public clothing ARTICLES SCORE Total number of steps: 0 DRESSING - LOWER BODY - SCORE: 0-UNK TOILETING: Activity did not occur on this shift TOILETING - SCORE: 0-UNK BLADDER MANAGEMENT: Activity did not occur on this shift BLADDER MANAGEMENT - SCORE: 7-IND BOWEL MANAGEMENT: Activity did not occur on this shift BOWEL MANAGEMENT - SCORE: 7-IND TRANSFERS: BED, CHAIR, WHEELCHAIR: TRANSFERS: BED, CHAIR, WHEELCHAIR - STEP 1: Does the patient require assistance of a person or device, or need extra time with bed, chair, or whe elchair transfers? Yes. TRANSFERS: BED, CHAIR, WHEELCHAIR - STEP 2: Does the patient require the assistance of a helper? Yes. TRANSFERS: BED, CHAIR, WHEELCHAIR - STEP 3: How much assistance does the patient require from the helper? Steadying/guiding assistance TRANSFERS: BED, CHAIR, WHEELCHAIR - SCORE: 4-MIN TRANSFERS: TOILET: Activity did not occur on this shift TRANSFERS: TOILET - SCORE: 0-UNK TRANSFERS: SHOWER: Activity did not occur on this shift TRANSFERS: SHOWER - SCORE: 0-UNK TRANSFERS: TUB: Activity did not occur on this shift TRANSFERS: TUB - SCORE: 0-UNK LOCOMOTION: WALK: LOCOMOTION: WALK - STEP 1: Does the patient need help from a person or device, or need extra time to walk 150 feet? Yes. LOCOMOTION: WALK - STEP 2: How much assistance does the patient require to walk a minimum of 150 feet? Only incidental help such as contact guarding or steadying LOCOMOTION: WALK - SCORE: 4-MIN LOCOMOTION: WHEELCHAIR: LOCOMOTION: WHEELCHAIR - STEP 1: Does the patient need help to go 150 feet in a wheelchair? No. LOCOMOTION: WHEELCHAIR - SCORE: 6-ROBBY LOCOMOTION: STAIRS: Activity did not occur on this shift LOCOMOTION: STAIRS - SCORE: 0-UNK COMPREHENSION: COMPREHENSION - SCORE: 0-UNK EXPRESSION EXPRESSION - SCORE: 0-UNK SOCIAL INTERACTION: SOCIAL INTERACTION - SCORE: 0-UNK PROBLEM SOLVING: PROBLEM SOLVING - SCORE: 0-UNK MEMORY: MEMORY - SCORE: 0-UNK SIGNATURE PANEL: The following modified sections: Transfers: Bed, Chair, Wheelchair - Score, Transfers: Toilet - Score , Locomotion: Walk - Score, Locomotion: Wheelchair - Score, Locomotion: Stairs - Score were [electron ically] signed by Jacky Santoro PT on MonAug 20 2018 15:17:18 GMT-0600 (Central Standard Time)
[2018-08-20] MEDS: HYDROCODONE/APAP 5/325 MG TAB PO PRN ×2 (17:26→21:19)
--- NOTE | 2018-08-20 17:46 | FAST ---
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 Daniel Mane M.D. ADMISSION DIAGNOSIS: - Debility 16 - Debility (16) RIGHT 6TH RIB FRCATURE. EATING: EATING - STEP 1: Does the patient require the assistance of a person or device, or need extra time when eating? Yes. EATING - STEP 2: Does the patient require the assistance of a helper? Yes. EATING - STEP 3: Does the patient perform half or more of the eating tasks? Yes. EATING - STEP 4: Does the patient need only supervision, cuing, coaxing OR help to apply an orthosis OR help to cut fo od, open containers, pour liquids, or butter bread? Yes. EATING - SCORE: 5-SUP GROOMING: Comb/brush hair Wash, rinse, and dry face Wash, rinse, and dry hands GROOMING - STEP 1: Does the patient require the assistance of a person or device, or need extra time when grooming? Yes. GROOMING - STEP 2: Does the patient require the assistance of a helper? Yes. GROOMING - STEP 3: How much assistance does the patient require from the helper? Only prior equipment preparation/set up from the helper GROOMING - SCORE: 5-SUP BATHING: Activity did not occur on this shift BATHING - SCORE: 0-UNK DRESSING - UPPER BODY: T-shirt/pullover shirt (four steps) ARTICLES SCORE Total number of steps: 4 DRESSING - UPPER BODY - STEP 1: Does the patient require help from a person or device, or need extra time when dressing above the meek st? Yes. DRESSING - UPPER BODY - STEP 2: Does the patient require the assistance of a helper? Yes. DRESSING - UPPER BODY - STEP 3: Does the helper touch the patient while dressing? Yes. DRESSING - UPPER BODY - STEP 4: How many of the total steps does the patient complete on his/her own? 2 DRESSING - UPPER BODY - SCORE: 3-MOD DRESSING - LOWER BODY: Elastic waist pants (three steps) Sock - Left foot (one step) Sock - Right foot (one step) Tied or buckled shoe - Left foot (two steps) Tied or buckled shoe - Right foot (two steps) Underwear (three steps) ARTICLES SCORE Total number of steps: 12 DRESSING - LOWER BODY - STEP 1: Does the patient require help from a person or device, or need extra time when dressing below the meek st? Yes. DRESSING - LOWER BODY - STEP 2: Does the patient require the assistance of a helper? Yes. DRESSING - LOWER BODY - STEP 3: Does the helper touch the patient while dressing? Yes. DRESSING - LOWER BODY - STEP 4: How many of the total steps does the patient complete on his/her own? 4 DRESSING - LOWER BODY - STEP 5: Does patient require total assistance for dressing below the waist such as the helper holding clothin g and performing basically all the activities? Yes. DRESSING - LOWER BODY - SCORE: 1-DEP TOILETING: TOILETING - STEP 1: Does the patient require the assistance of a person or device, or need extra time with toileting? Yes . TOILETING - STEP 2: Does the patient require the assistance of a helper? Yes. TOILETING - STEP 3: How much assistance does the patient require from the helper? Hands-on assistance from the helper TOILETING - STEP 4: Of the 3 tasks: 1) Adjusting clothing prior to use, 2) Cleansing of perineal area, 3) Adjusting clot stephenie after use; How many tasks does the patient perform WITHOUT assistance of the helper? Two tasks TOILETING - SCORE: 3-MOD BLADDER MANAGEMENT: [place] removes incontinent device (Depends, pull ups, etc.); cleans the patient after accident / inco ntinent episode; and, applies new incontinent device. BLADDER MANAGEMENT - SCORE: 1-DEP BLADDER MANAGEMENT - FREQUENCY OF ACCIDENTS: BLADDER MANAGEMENT(FA) - STEP 1: How many accidents has the patient had during the current shift? 3 BOWEL MANAGEMENT: BOWEL MANAGEMENT - STEP 1: Does the patient control bowels completely and intentionally without equipment devices or medications AND is always continent? No. BOWEL MANAGEMENT - STEP 2: Does the patient require the assistance of a helper? No, patient requires medication for control such as stool softeners, suppositories, laxatives, enemas, or OTC medications BOWEL MANAGEMENT - SCORE: 6-ROBBY BOWEL MANAGEMENT - FREQUENCY OF ACCIDENTS: BOWEL MANAGEMENT(FA) - STEP 1: How many accidents has the patient had during the current shift? 0 TRANSFERS: BED, CHAIR, WHEELCHAIR: TRANSFERS: BED, CHAIR, WHEELCHAIR - STEP 1: Does the patient require assistance of a person or device, or need extra time with bed, chair, or whe elchair transfers? Yes. TRANSFERS: BED, CHAIR, WHEELCHAIR - STEP 2: Does the patient require the assistance of a helper? Yes. TRANSFERS: BED, CHAIR, WHEELCHAIR - STEP 3: How much assistance does the patient require from the helper? Lifting of the patient TRANSFERS: BED, CHAIR, WHEELCHAIR - STEP 4: Does the helper lift the patient ONLY up? ONLY down? Up AND Down? ONLY up. TRANSFERS: BED, CHAIR, WHEELCHAIR - SCORE: 3-MOD TRANSFERS: TOILET: TRANSFERS: TOILET - STEP 1: Does the patient require the assistance of a person or device, or need extra time with toilet transfe rs? Yes. TRANSFERS: TOILET - STEP 2: Does the patient require the assistance of a helper? Yes. TRANSFERS: TOILET - STEP 3: How much assistance does the patient require from the helper? Patient performs half or more of the tr ansferring tasks TRANSFERS: TOILET - STEP 4: Does the patient need only incidental help such as contact guard or steadying during toilet transfer? Yes. TRANSFERS: TOILET - SCORE: 4-MIN TRANSFERS: SHOWER: Activity did not occur on this shift TRANSFERS: SHOWER - SCORE: 0-UNK TRANSFERS: TUB: Activity did not occur on this shift TRANSFERS: TUB - SCORE: 0-UNK LOCOMOTION: WALK: Activity did not occur on this shift LOCOMOTION: WALK - SCORE: 0-UNK LOCOMOTION: WHEELCHAIR: Activity did not occur on this shift LOCOMOTION: WHEELCHAIR - SCORE: 0-UNK COMPREHENSION: COMPREHENSION: TYPE: Both COMPREHENSION - STEP 1: Does the patient require help from a person or device, or need extra time to understand complex and a bstract ideas (such as current events, finances, discharge planning, medical issues, relationships, e tc)? No. COMPREHENSION - STEP 2: Does the patient need extra time, require an assistive device (such as glasses for visual comprehensi on or a hearing aid for auditory comprehension) or does s/he have mild difficulty understanding compl ex and abstract information? Yes. COMPREHENSION - SCORE: 6-ROBBY EXPRESSION EXPRESSION: TYPE: Both EXPRESSION - STEP 1: Does the patient require help from a person or device, or need extra time expressing complex and abst ract ideas (such as current events, finances, discharge planning, medical issues, relationships, etc) ? Yes. EXPRESSION - STEP 2: Does the patient require help to express basic necessities or ideas (such as hunger, thirst, sleep, s afety, daily schedule, room location, or discomfort) half or more of the time? No. EXPRESSION - STEP 3: How often does the patient need help to express directions and conversation about basic needs? Less t watt 10% of the time EXPRESSION - SCORE: 5-SUP SOCIAL INTERACTION: SOCIAL INTERACTION - STEP 1: Does the patient require a helper to interact with others in social and therapeutic situations? No. SOCIAL INTERACTION - STEP 2: Does the patient need extra time in social situations, OR does s/he interact with staff, other patien ts, and family members ONLY in structured environments, OR does s/he require medication for social in teraction? Yes, patient needs extra time SOCIAL INTERACTION - SCORE: 6-ROBBY PROBLEM SOLVING: PROBLEM SOLVING - STEP 1: Does the patient need help from a person or device, or need extra time to solve complex problems such as managing a checking account or confronting interpersonal problems? No. PROBLEM SOLVING - STEP 2: Does the patient require extra time to make decisions or solve problems, OR does s/he have slight dif ficulty reading, initiating, or self-correcting in unfamiliar situations? Yes, patient needs extra ti me. PROBLEM SOLVING - SCORE: 6-ROBBY MEMORY: MEMORY - STEP 1: Does the patient need help from a person or device, or need extra time to remember frequently encount ered people, daily routines, and executing requests? Yes. MEMORY - STEP 2: How often does the patient need help to remember frequently encountered people, daily routines, and e xecuting requests? Less than 10% of the time MEMORY - SCORE: 5-SUP SIGNATURE PANEL: The following modified sections: Eating - Score, Grooming - Score, Bathing - Score, Dressing - Upper Body - Score, Dressing - Lower Body - Score, Toileting - Score, Bladder Management - Score, Bowel Man agement - Score, Transfers: Bed, Chair, Wheelchair - Score, Transfers: Toilet - Score, Transfers: Kayla wer - Score, Transfers: Tub - Score, Locomotion: Walk - Score, Locomotion: Wheelchair - Score, Compre hension - Score, Expression - Score, Social Interaction - Score, Problem Solving - Score, Memory - Sc ore were [electronically] signed by Dasha Wei C.N.A. on MonAug 20 2018 17:45:54 GMT-0600 (Cent[facility] [place] Standard Time)
--- NOTE | 2018-08-20 18:34 | R.PN ---
ENCOUNTER DATE AND TIME: 08/20/2018 18:32 (DENTAL ASSISTANT) NAME ELSIE MENDOZA DATE OF : 1950 DATE OF ADMISSION: 08/08/2018 16:18 (DENTAL ASSISTANT) RIGHT 6TH RIB FRCATURECHIEF COMPLAINT: Rib fracture SUBJECTIVE: Pt denied any depression. Pt denied any Shortness of Breath. Propelled wheelchair 160' with standby assistance. Ambulated 350' with contact guard assistance using a left quad cane. VITAL SIGNS Temperature: 98.1 F SBP/DBP: 111/73 Pulse: 76 Resp: 14 MEDICATION ALLERGIES: Sulfa ENVIRONMENTAL ALLERGIES: None Known - Substance Allergies None Known - Other Allergies None Known NURSING: - Shower allowing shower ACTIVITIES OOB only with supervision THERAPIES: - Occupational Therapy Evaluate and Treat. - Physical Therapy Evaluate and Treat. PHYSICAL EXAM - Gen Alert and awake Lying in bed No apparent distress Oriented to: person, time, and place - Skin No breakdown No abnormalities - Eyes No abnormalities - ENMT No abnormalities - Neck No abnormalities - CVS RRR - Chest No abnormalities - Resp Clear to auscultation - Abd + bowel sounds - GI Soft Deferred - No abnormalities - Ext Mild bilateral lower extremity edema. - MSK 4+/5 weakness in both lower extremities. - Neuro No focal deficits - Psych No abnormalities ASSESSMENT: Pt. is a 68 yo Right-handed white male.On 08/03/2018 he was admitted to [facility] with diagnosis RIGHT 6TH RIB FRCATURE.His impairment category is Debility 16 - Debility (16).Pre -morbidly, Pt. was independent/mod-I in Sphincter Control, Transfers Control, Communication, Social C ognition, Self-Care, and Locomotion; and he had good Sphincter Control.Currently, he has deficits of Safety Awareness, Transfers Control, Balance, Self-Care, Locomotion, and Endurance.Pt. is now referre d to [facility] for acute in-patient rehabilitation in order to maximize patie nt's functional independence in activities of daily living, strength, ROM, and mobility.- Rehab Goal Patient has realistic goal of being discharged at assistance level 6-Henny to reside at Home with Fam liana/Relatives. MDM/PLAN: - Physical Therapy Gait dysfunction - to improve, our physical therapists will perform initial evaluation of pt's statu s upon admission and devise an individualized program for Gait Training, and Wheel Chair mobility Inability to transfer - to improve, our physical therapists will perform initial evaluation of pt's status upon admission and devise an individualized program for Bed mobility Need for home safety evaluation - to improve, our physical therapists will perform initial evaluatio n of pt's status upon admission and devise an individualized program for Home Evaluation Need in caregiver upon discharge - to improve, our physical therapists will perform initial evaluati on of pt's status upon admission and devise an individualized program for Caregiver Training New precaution - to improve, our physical therapists will perform initial evaluation of pt's status upon admission and devise an individualized program for Patient precaution education Edema - to improve, our physical therapists will perform initial evaluation of pt's status upon admi ssion and devise an individualized program for Elevation Training, and Lymphedema Therapy Poor balance - to improve, our physical therapists will perform initial evaluation of pt's status up on admission and devise an individualized program for Balance Training Poor endurance - to improve, our physical therapists will perform initial evaluation of pt's status upon admission and devise an individualized program for Endurance Training Weakness - to improve, our physical therapists will perform initial evaluation of pt's status upon a dmission and devise an individualized program for Aquatic Therapy, Neuromuscular Reeducation, and Str engthening Achieving independence - to improve, our physical therapists will perform initial evaluation of pt's status upon admission and devise an individualized program for Community Reintegration Activities - Occupational Therapy ADL deficits - to improve, our occupation therapists will perform initial evaluation of pt's status upon admission and devise an individualized program for Bathing, Bed mobility, Community Reintegratio n, Cooking, Dressing, Eating, Fine Motor Skills, Grooming, Homemaking, Kitchen Mobility, Laundry, Pat ient Education, Safety Awareness, Splinting - Positioning, Transfers(Toilet, Tub, Shower), and Wheel Chair Management Need for pet care attendant - to improve, our occupation therapists will perform initial evaluation of pt's status upon admission and devise an individualized program for Caregiver Training Weakness - to improve, our occupation therapists will perform initial evaluation of pt's status upon admission and devise an individualized program for Aquatic Therapy, Balance, Endurance, UE ROM, and UE strengthening - Diet Type Continue Heart Healthy - Diet - Liquid Texture Continue Regular - Tube Feed Continue N/A - Diet - Solid Texture Continue Regular - Shower allowing shower FUNCTIONAL STATUS: UPDATED AT WEEKLY TEAM CONFERENCE - Bladder Same accident frequency: 7-Ind - No accidents in the past 7 days - Bowel Same accident frequency: 7-Ind - No accidents in the past 7 days - Walking Same score based on distance walked: 1(<=50ft) - Wheelchair Same score based on distance traveled: 0(N/A) FUNCTIONAL STATUS: - Self-Care A. Eating sup B. Grooming Henny C. Bathing Ruddy D. Dressing - Upper Ruddy E. Dressing - Lower Ruddy F. Toileting modA - Sphincter Control G: Bladder control Ind H: Bowel control Ind - Transfers Control I. Bed/Chair/Wheelchair maxA J. Toilet maxA K. Tub/Shower ADNO - Locomotion L. Walk/Wheelchair (C) modA L. Walk/Wheelchair (W) modA M. Stairs ADNO - Communication N. Comprehension (B) Ind O. Expression (B) Ind - Social Cognition P. Social Interaction Ind Q. Problem Solving Ind R. Memory Ind - Endurance Fair - Balance Fair - Safety Awareness Fair CURRENT FUNC. DEFICITS: Safety Awareness, Transfers Control, Balance, Self-Care, Locomotion, and Endurance SIGNATURE PANEL: (DENTAL ASSISTANT)
[2018-08-20] MEDS: ATORVASTATIN 10 MG TAB PO SCH (20:20)
[2018-08-21] MEDS: TRAMADOL HCL 50 MG TAB PO SCH ×4 (01:00→20:54)
[2018-08-21] MEDS: ALBUTEROL 2.5 MG/3 ML NEB SOL NEB SCH ×4 (01:46→20:00)
--- NOTE | 2018-08-21 02:11 | FAST ---
SHIFT START DATE/TIME: 08/20/2018 19:00 (WARM IN) SHIFT END DATE/TIME: 08/21/2018 07:00 (WARM IN) NAME ELSIE MENDOZA DATE OF : 1950 DATE OF ADMISSION: 08/08/2018 16:18 (WARM IN) PHONE: AGE: 68 SSN# [id number] GENDER: Male ENCOUNTER PHYSICIAN: Dr. Daniel Mane M.D. ADMISSION DIAGNOSIS: - Debility 16 - Debility (16) RIGHT 6TH RIB FRCATURE. EATING: Activity did not occur on this shift EATING - SCORE: 0-UNK GROOMING: Activity did not occur on this shift GROOMING - SCORE: 0-UNK BATHING: Activity did not occur on this shift BATHING - SCORE: 0-UNK DRESSING - UPPER BODY: Patient is not dressing in public clothing ARTICLES SCORE Total number of steps: 0 DRESSING - UPPER BODY - SCORE: 0-UNK DRESSING - LOWER BODY: Patient is not dressing in public clothing ARTICLES SCORE Total number of steps: 0 DRESSING - LOWER BODY - SCORE: 0-UNK TOILETING: Activity did not occur on this shift TOILETING - SCORE: 0-UNK BLADDER MANAGEMENT: [place] removes incontinent device (Depends, pull ups, etc.); cleans the patient after accident / inco ntinent episode; and, applies new incontinent device. BLADDER MANAGEMENT - SCORE: 1-DEP BOWEL MANAGEMENT: Activity did not occur on this shift BOWEL MANAGEMENT - SCORE: 7-IND TRANSFERS: BED, CHAIR, WHEELCHAIR: TRANSFERS: BED, CHAIR, WHEELCHAIR - STEP 1: Does the patient require assistance of a person or device, or need extra time with bed, chair, or whe elchair transfers? Yes. TRANSFERS: BED, CHAIR, WHEELCHAIR - STEP 2: Does the patient require the assistance of a helper? Yes. TRANSFERS: BED, CHAIR, WHEELCHAIR - STEP 3: How much assistance does the patient require from the helper? Lifting of the patient TRANSFERS: BED, CHAIR, WHEELCHAIR - STEP 4: Does the helper lift the patient ONLY up? ONLY down? Up AND Down? Patient needs help with all lifting TRANSFERS: BED, CHAIR, WHEELCHAIR - SCORE: 1-DEP TRANSFERS: TOILET: Activity did not occur on this shift TRANSFERS: TOILET - SCORE: 0-UNK TRANSFERS: SHOWER: Activity did not occur on this shift TRANSFERS: SHOWER - SCORE: 0-UNK TRANSFERS: TUB: Activity did not occur on this shift TRANSFERS: TUB - SCORE: 0-UNK LOCOMOTION: WALK: Activity did not occur on this shift LOCOMOTION: WALK - SCORE: 0-UNK LOCOMOTION: WHEELCHAIR: Activity did not occur on this shift LOCOMOTION: WHEELCHAIR - SCORE: 0-UNK COMPREHENSION: COMPREHENSION: TYPE: Both COMPREHENSION - STEP 1: Does the patient require help from a person or device, or need extra time to understand complex and a bstract ideas (such as current events, finances, discharge planning, medical issues, relationships, e tc)? Yes. COMPREHENSION - STEP 2: Does the patient require help to understand questions or statements about basic needs or ideas (such as hunger, thirst, sleep, safety, daily schedule, room location, or discomfort) half or more of the t madeleine? No. COMPREHENSION - STEP 3: How often does the patient need help to understand directions and conversation about basic needs? 10% - 24% of the time COMPREHENSION - SCORE: 4-MIN EXPRESSION EXPRESSION: TYPE: Both EXPRESSION - STEP 1: Does the patient require help from a person or device, or need extra time expressing complex and abst ract ideas (such as current events, finances, discharge planning, medical issues, relationships, etc) ? No. EXPRESSION - STEP 2: Does the patient need extra time, require an assistive device (such as augmentive communication syste m or a communication board), OR does s/he have mild difficulty expressing complex and abstract ideas (including mild dysarthria or mild word-find problems)? Yes. EXPRESSION - SCORE: 6-ROBBY SOCIAL INTERACTION: SOCIAL INTERACTION - STEP 1: Does the patient require a helper to interact with others in social and therapeutic situations? No. SOCIAL INTERACTION - STEP 2: Does the patient need extra time in social situations, OR does s/he interact with staff, other patien ts, and family members ONLY in structured environments, OR does s/he require medication for social in teraction? Yes, patient needs extra time SOCIAL INTERACTION - SCORE: 6-ROBBY PROBLEM SOLVING: PROBLEM SOLVING - STEP 1: Does the patient need help from a person or device, or need extra time to solve complex problems such as managing a checking account or confronting interpersonal problems? Yes. PROBLEM SOLVING - STEP 2: Does the patient solve basic routine problems half or more of the time? Yes. PROBLEM SOLVING - STEP 3: How often does the patient need help to solve basic routine problems? 10%-24% of the time PROBLEM SOLVING - SCORE: 4-MIN MEMORY: MEMORY - STEP 1: Does the patient need help from a person or device, or need extra time to remember frequently encount ered people, daily routines, and executing requests? No. MEMORY - STEP 2: Does the patient have slight difficulty recognizing frequently encountered people, daily routines, or executing requests without the need for repetition or using self-initiated or environmental cues to remember? Yes. MEMORY - SCORE: 6-ROBBY SIGNATURE PANEL: The following modified sections: Eating - Score, Grooming - Score, Dressing - Upper Body - Score, Joseph ssing - Lower Body - Score, Toileting - Score, Bladder Management - Score, Bowel Management - Score, Transfers: Bed, Chair, Wheelchair - Score, Transfers: Toilet - Score, Transfers: Shower - Score, Gupta sfers: Tub - Score, Locomotion: Walk - Score, Locomotion: Wheelchair - Score, Comprehension - Score, Expression - Score, Social Interaction - Score, Problem Solving - Score, Memory - Score were [electro nically] signed by Isabela Arshad CNA on MonAug 21 2018 02:09:35 GMT-0600 (Central Standard Time)
--- NOTE | 2018-08-21 03:17 | PN ---
Date of Progress Note: 08/20/2018 Subjective: The patient was seen this morning for followup. No new complaints or problems reported by him. His cough and chest congestion are much better with nebulizer treatment with albuterol and u sing Mucomyst and chest percussion. Objective: Vital Signs: Reviewed. HEENT: Unremarkable. Lungs: Clear to auscultation. No rhonchi. No rales. Heart: Sounds normal. Abdomen: Soft. Bowel sounds normal. No guarding, rigidity, tenderness, or distention. Extremities: No leg edema. Impression: 1.Pneumonia, resolved. 2.Debility. 3.Stroke with right-sided hemiparesis. 4.Hypertension. 5.Constipation. Plan: Patient reports having good bowel movement yesterday. No need for any further intervention fo r constipation. We will continue current medication including physical therapy under guidance of Dr. Mane, and we will go ahead and discontinue antibiotic. DAWNA/MODL Voice ID: [id number] Report ID: [id number]
[2018-08-21] MEDS: HYDROCODONE/APAP 5/325 MG TAB PO PRN ×4 (04:33→17:02)
[2018-08-21] MEDS: LIDOCAINE 5% PATCH TOP SCH (07:00)
[2018-08-21] MEDS: ENOXAPARIN 40 MG/0.4 ML SQ SCH (07:00)
[2018-08-21] MEDS: ACETYLCYST 20% 4 ML VIAL IH SCH ×2 (07:42→20:00)
[2018-08-21] MEDS: GUAIFENESIN 600 MG SA TAB PO SCH ×2 (07:47→20:54)
[2018-08-21] MEDS: DOCUSATE NA 100 MG CAP PO SCH ×2 (07:47→20:53)
[2018-08-21] MEDS: GABAPENTIN 300 MG CAP PO SCH ×2 (07:48→20:54)
[2018-08-21] MEDS: ASPIRIN EC 81 MG TAB PO SCH (07:48)
[2018-08-21] MEDS: MECLIZINE HCL 12.5 MG TAB PO SCH ×2 (07:48→20:53)
[2018-08-21] MEDS: ARIPiprazole 5 MG TAB PO SCH (07:48)
[2018-08-21] MEDS: AMLODIPINE 5 MG TAB PO SCH ×2 (07:50→20:53)
[2018-08-21] MEDS: ESCITALOPRAM 20 MG TAB PO SCH (07:50)
[2018-08-21] MEDS: hydroCHLOROthiazide 12.5 MG CAP PO SCH (07:50)
[2018-08-21] MEDS: RAMIPRIL 5 MG CAP PO SCH ×2 (07:51→20:53)
[2018-08-21] MEDS: FLUTICASONE 50MCG NASAL SPRAY NAS SCH ×2 (07:52→20:55)
--- NOTE | 2018-08-21 13:18 | FAST ---
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 Daniel Mane M.D. ADMISSION DIAGNOSIS: - Debility 16 - Debility (16) RIGHT 6TH RIB FRCATURE. EATING: Activity did not occur on this shift EATING - SCORE: 0-UNK GROOMING: Activity did not occur on this shift GROOMING - SCORE: 0-UNK BATHING: Activity did not occur on this shift BATHING - SCORE: 0-UNK DRESSING - UPPER BODY: Activity did not occur on this shift Patient is not dressing in public clothing ARTICLES SCORE Total number of steps: 0 DRESSING - UPPER BODY - SCORE: 0-UNK DRESSING - LOWER BODY: Activity did not occur on this shift Patient is not dressing in public clothing ARTICLES SCORE Total number of steps: 0 DRESSING - LOWER BODY - SCORE: 0-UNK TOILETING: Activity did not occur on this shift TOILETING - SCORE: 0-UNK BLADDER MANAGEMENT: Activity did not occur on this shift BLADDER MANAGEMENT - SCORE: 7-IND BOWEL MANAGEMENT: Activity did not occur on this shift BOWEL MANAGEMENT - SCORE: 7-IND TRANSFERS: BED, CHAIR, WHEELCHAIR: TRANSFERS: BED, CHAIR, WHEELCHAIR - STEP 1: Does the patient require assistance of a person or device, or need extra time with bed, chair, or whe elchair transfers? Yes. TRANSFERS: BED, CHAIR, WHEELCHAIR - STEP 2: Does the patient require the assistance of a helper? Yes. TRANSFERS: BED, CHAIR, WHEELCHAIR - STEP 3: How much assistance does the patient require from the helper? Steadying/guiding assistance TRANSFERS: BED, CHAIR, WHEELCHAIR - SCORE: 4-MIN TRANSFERS: TOILET: Activity did not occur on this shift TRANSFERS: TOILET - SCORE: 0-UNK TRANSFERS: SHOWER: Activity did not occur on this shift TRANSFERS: SHOWER - SCORE: 0-UNK TRANSFERS: TUB: Activity did not occur on this shift TRANSFERS: TUB - SCORE: 0-UNK LOCOMOTION: WALK: LOCOMOTION: WALK - STEP 1: Does the patient need help from a person or device, or need extra time to walk 150 feet? Yes. LOCOMOTION: WALK - STEP 2: How much assistance does the patient require to walk a minimum of 150 feet? Only incidental help such as contact guarding or steadying LOCOMOTION: WALK - SCORE: 4-MIN LOCOMOTION: WHEELCHAIR: LOCOMOTION: WHEELCHAIR - STEP 1: Does the patient need help to go 150 feet in a wheelchair? No. LOCOMOTION: WHEELCHAIR - SCORE: 6-ROBBY LOCOMOTION: STAIRS: Activity did not occur on this shift LOCOMOTION: STAIRS - SCORE: 0-UNK COMPREHENSION: COMPREHENSION - SCORE: 0-UNK EXPRESSION EXPRESSION - SCORE: 0-UNK SOCIAL INTERACTION: SOCIAL INTERACTION - SCORE: 0-UNK PROBLEM SOLVING: PROBLEM SOLVING - SCORE: 0-UNK MEMORY: MEMORY - SCORE: 0-UNK SIGNATURE PANEL: The following modified sections: Transfers: Bed, Chair, Wheelchair - Score, Transfers: Toilet - Score , Locomotion: Walk - Score, Locomotion: Wheelchair - Score, Locomotion: Stairs - Score were [electron ically] signed by Beti Sawant PTA on MonAug 21 2018 13:17:26 GMT-0600 (Central Standard Time)
--- NOTE | 2018-08-21 15:20 | FAST ---
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 Daniel Mane M.D. ADMISSION DIAGNOSIS: - Debility 16 - Debility (16) RIGHT 6TH RIB FRCATURE. EATING: EATING - STEP 1: Does the patient require the assistance of a person or device, or need extra time when eating? Yes. EATING - STEP 2: Does the patient require the assistance of a helper? No, patient only requires an assistive device, O R s/he takes more than reasonable time to eat, OR there is a safety concern, OR s/he requires modifie d food consistency EATING - SCORE: 6-ROBBY GROOMING: Comb/brush hair Oral care Wash, rinse, and dry face Wash, rinse, and dry hands GROOMING - STEP 1: Does the patient require the assistance of a person or device, or need extra time when grooming? Yes. GROOMING - STEP 2: Does the patient require the assistance of a helper? No. The patient only requires an assistive devic e, OR takes more than reasonable time to groom, OR there is a concern for safety as the patient groom s GROOMING - SCORE: 6-ROBBY BATHING: Activity did not occur on this shift BATHING - SCORE: 0-UNK DRESSING - UPPER BODY: T-shirt/pullover shirt (four steps) ARTICLES SCORE Total number of steps: 4 DRESSING - UPPER BODY - STEP 1: Does the patient require help from a person or device, or need extra time when dressing above the meek st? Yes. DRESSING - UPPER BODY - STEP 2: Does the patient require the assistance of a helper? Yes. DRESSING - UPPER BODY - STEP 3: Does the helper touch the patient while dressing? Yes. DRESSING - UPPER BODY - STEP 4: How many of the total steps does the patient complete on his/her own? 3 DRESSING - UPPER BODY - SCORE: 4-MIN DRESSING - LOWER BODY: Elastic waist pants (three steps) Sock - Left foot (one step) Sock - Right foot (one step) Tied or buckled shoe - Left foot (two steps) Tied or buckled shoe - Right foot (two steps) Underwear (three steps) ARTICLES SCORE Total number of steps: 12 DRESSING - LOWER BODY - STEP 1: Does the patient require help from a person or device, or need extra time when dressing below the meek st? Yes. DRESSING - LOWER BODY - STEP 2: Does the patient require the assistance of a helper? Yes. DRESSING - LOWER BODY - STEP 3: Does the helper touch the patient while dressing? Yes. DRESSING - LOWER BODY - STEP 4: How many of the total steps does the patient complete on his/her own? 2 DRESSING - LOWER BODY - STEP 5: Does patient require total assistance for dressing below the waist such as the helper holding clothin g and performing basically all the activities? Yes. DRESSING - LOWER BODY - SCORE: 1-DEP TOILETING: TOILETING - STEP 1: Does the patient require the assistance of a person or device, or need extra time with toileting? Yes . TOILETING - STEP 2: Does the patient require the assistance of a helper? Yes. TOILETING - STEP 3: How much assistance does the patient require from the helper? Hands-on assistance from the helper TOILETING - STEP 4: Of the 3 tasks: 1) Adjusting clothing prior to use, 2) Cleansing of perineal area, 3) Adjusting clot stephenie after use; How many tasks does the patient perform WITHOUT assistance of the helper? One task TOILETING - SCORE: 2-MAX TOILETING - COMMENTS: Pt able to move left hand only- he pulls his clothes up and down and provides on left side provides hygiene care with left hand BLADDER MANAGEMENT: BLADDER MANAGEMENT - STEP 1: Does the patient control the bladder completely and intentionally without equipment or devices or med ications, and is always continent? No. BLADDER MANAGEMENT - STEP 2: Does the patient require the assistance of a helper? Yes. BLADDER MANAGEMENT - STEP 3: How much assistance does the patient require from the helper? Only set-up of equipment - such as plac ing it within reach of the patient or emptying a device - to maintain either satisfactory voiding pat tern or managing an external device, such as an absorbent pad, ileal device, or catheter BLADDER MANAGEMENT - SCORE: 5-SUP BLADDER MANAGEMENT - FREQUENCY OF ACCIDENTS: BLADDER MANAGEMENT(FA) - STEP 1: How many accidents has the patient had during the current shift? 3 BOWEL MANAGEMENT: Activity did not occur on this shift BOWEL MANAGEMENT - SCORE: 7-IND BOWEL MANAGEMENT - FREQUENCY OF ACCIDENTS: BOWEL MANAGEMENT(FA) - STEP 1: How many accidents has the patient had during the current shift? 0 TRANSFERS: BED, CHAIR, WHEELCHAIR: TRANSFERS: BED, CHAIR, WHEELCHAIR - STEP 1: Does the patient require assistance of a person or device, or need extra time with bed, chair, or whe elchair transfers? Yes. TRANSFERS: BED, CHAIR, WHEELCHAIR - STEP 2: Does the patient require the assistance of a helper? Yes. TRANSFERS: BED, CHAIR, WHEELCHAIR - STEP 3: How much assistance does the patient require from the helper? Lifting of the legs TRANSFERS: BED, CHAIR, WHEELCHAIR - STEP 4: How many legs does the patient require the helper to lift? one leg TRANSFERS: BED, CHAIR, WHEELCHAIR - SCORE: 4-MIN TRANSFERS: TOILET: TRANSFERS: TOILET - STEP 1: Does the patient require the assistance of a person or device, or need extra time with toilet transfe rs? Yes. TRANSFERS: TOILET - STEP 2: Does the patient require the assistance of a helper? Yes. TRANSFERS: TOILET - STEP 3: How much assistance does the patient require from the helper? Patient performs half or more of the tr ansferring tasks TRANSFERS: TOILET - STEP 4: Does the patient need only incidental help such as contact guard or steadying during toilet transfer? No. Patient needs more than incidental help TRANSFERS: TOILET - SCORE: 3-MOD TRANSFERS: TOILET - COMMENTS: [place] holds gait belt- pt stands -holds grab bar- pt is able to pivot - turn-helps helper pull cloth es down- pt lowers self on to toilet seat TRANSFERS: SHOWER: Activity did not occur on this shift TRANSFERS: SHOWER - SCORE: 0-UNK TRANSFERS: TUB: Activity did not occur on this shift TRANSFERS: TUB - SCORE: 0-UNK LOCOMOTION: WALK: Activity did not occur on this shift LOCOMOTION: WALK - SCORE: 0-UNK LOCOMOTION: WHEELCHAIR: LOCOMOTION: WHEELCHAIR - STEP 1: Does the patient need help to go 150 feet in a wheelchair? Yes. LOCOMOTION: WHEELCHAIR - STEP 2: How much assistance does the patient need from the helper? Only supervision, cuing, or coaxing LOCOMOTION: WHEELCHAIR - SCORE: 5-SUP COMPREHENSION: COMPREHENSION: TYPE: Both COMPREHENSION - STEP 1: Does the patient require help from a person or device, or need extra time to understand complex and a bstract ideas (such as current events, finances, discharge planning, medical issues, relationships, e tc)? No. COMPREHENSION - STEP 2: Does the patient need extra time, require an assistive device (such as glasses for visual comprehensi on or a hearing aid for auditory comprehension) or does s/he have mild difficulty understanding compl ex and abstract information? Yes. COMPREHENSION - SCORE: 6-ROBBY EXPRESSION EXPRESSION: TYPE: Both EXPRESSION - STEP 1: Does the patient require help from a person or device, or need extra time expressing complex and abst ract ideas (such as current events, finances, discharge planning, medical issues, relationships, etc) ? Yes. EXPRESSION - STEP 2: Does the patient require help to express basic necessities or ideas (such as hunger, thirst, sleep, s afety, daily schedule, room location, or discomfort) half or more of the time? No. EXPRESSION - STEP 3: How often does the patient need help to express directions and conversation about basic needs? Less t watt 10% of the time EXPRESSION - SCORE: 5-SUP SOCIAL INTERACTION: SOCIAL INTERACTION - STEP 1: Does the patient require a helper to interact with others in social and therapeutic situations? No. SOCIAL INTERACTION - STEP 2: Does the patient need extra time in social situations, OR does s/he interact with staff, other patien ts, and family members ONLY in structured environments, OR does s/he require medication for social in teraction? Yes, patient needs extra time SOCIAL INTERACTION - SCORE: 6-ROBBY PROBLEM SOLVING: PROBLEM SOLVING - STEP 1: Does the patient need help from a person or device, or need extra time to solve complex problems such as managing a checking account or confronting interpersonal problems? Yes. PROBLEM SOLVING - STEP 2: Does the patient solve basic routine problems half or more of the time? Yes. PROBLEM SOLVING - STEP 3: How often does the patient need help to solve basic routine problems? Less than 10% of the time PROBLEM SOLVING - SCORE: 5-SUP MEMORY: MEMORY - STEP 1: Does the patient need help from a person or device, or need extra time to remember frequently encount ered people, daily routines, and executing requests? No. MEMORY - STEP 2: Does the patient have slight difficulty recognizing frequently encountered people, daily routines, or executing requests without the need for repetition or using self-initiated or environmental cues to remember? Yes. MEMORY - SCORE: 6-ROBBY SIGNATURE PANEL: The following modified sections: Eating - Score, Grooming - Score, Bathing - Score, Dressing - Upper Body - Score, Dressing - Lower Body - Score, Toileting - Score, Toileting - Comments:, Bladder Manage ment - Score, Bowel Management - Score, Transfers: Bed, Chair, Wheelchair - Score, Transfers: Toilet - Score, Transfers: Toilet - Comments:, Transfers: Shower - Score, Transfers: Tub - Score, Locomotion : Walk - Score, Locomotion: Wheelchair - Score, Comprehension - Score, Expression - Score, Social Int eraction - Score, Problem Solving - Score, Memory - Score were [electronically] signed by Dasha castillo, C.N.ATessie on MonAug 21 2018 15:19:41 T-0600 (Central Standard Time)
--- NOTE | 2018-08-21 20:02 | R.PN ---
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 Pt denied any Shortness of Breath. Propelled wheelchair 160' with standby assistance. Ambulated 550' with contact guard assistance using a left quad cane. VITAL SIGNS Temperature: 98.1 F SBP/DBP: 140/78 Pulse: 72 Resp: 15 MEDICATION ALLERGIES: Sulfa ENVIRONMENTAL ALLERGIES: None Known - Substance Allergies None Known - Other Allergies None Known NURSING: - Shower allowing shower ACTIVITIES OOB only with supervision THERAPIES: - Occupational Therapy Evaluate and Treat. - Physical Therapy Evaluate and Treat. PHYSICAL EXAM - Gen Alert and awake Lying in bed No apparent distress Oriented to: person, time, and place - Skin No breakdown No abnormalities - Eyes No abnormalities - ENMT No abnormalities - Neck No abnormalities - CVS RRR - Chest No abnormalities - Resp Clear to auscultation - Abd + bowel sounds - GI Soft Deferred - No abnormalities - Ext Mild bilateral lower extremity edema. - MSK 4+/5 weakness in both lower extremities. - Neuro No focal deficits - Psych No abnormalities ASSESSMENT: Pt. is a 68 yo Right-handed white male.On 08/03/2018 he was admitted to [facility] with diagnosis RIGHT 6TH RIB FRCATURE.His impairment category is Debility 16 - Debility (16).Pre -morbidly, Pt. was independent/mod-I in Sphincter Control, Transfers Control, Communication, Social C ognition, Self-Care, and Locomotion; and he had good Sphincter Control.Currently, he has deficits of Safety Awareness, Transfers Control, Balance, Self-Care, Locomotion, and Endurance.Pt. is now referre d to [facility] for acute in-patient rehabilitation in order to maximize patie nt's functional independence in activities of daily living, strength, ROM, and mobility.- Rehab Goal Patient has realistic goal of being discharged at assistance level 6-Henny to reside at Home with Fam liana/Relatives. MDM/PLAN: - Physical Therapy Gait dysfunction - to improve, our physical therapists will perform initial evaluation of pt's statu s upon admission and devise an individualized program for Gait Training, and Wheel Chair mobility Inability to transfer - to improve, our physical therapists will perform initial evaluation of pt's status upon admission and devise an individualized program for Bed mobility Need for home safety evaluation - to improve, our physical therapists will perform initial evaluatio n of pt's status upon admission and devise an individualized program for Home Evaluation Need in caregiver upon discharge - to improve, our physical therapists will perform initial evaluati on of pt's status upon admission and devise an individualized program for Caregiver Training New precaution - to improve, our physical therapists will perform initial evaluation of pt's status upon admission and devise an individualized program for Patient precaution education Edema - to improve, our physical therapists will perform initial evaluation of pt's status upon admi ssion and devise an individualized program for Elevation Training, and Lymphedema Therapy Poor balance - to improve, our physical therapists will perform initial evaluation of pt's status up on admission and devise an individualized program for Balance Training Poor endurance - to improve, our physical therapists will perform initial evaluation of pt's status upon admission and devise an individualized program for Endurance Training Weakness - to improve, our physical therapists will perform initial evaluation of pt's status upon a dmission and devise an individualized program for Aquatic Therapy, Neuromuscular Reeducation, and Str engthening Achieving independence - to improve, our physical therapists will perform initial evaluation of pt's status upon admission and devise an individualized program for Community Reintegration Activities - Occupational Therapy ADL deficits - to improve, our occupation therapists will perform initial evaluation of pt's status upon admission and devise an individualized program for Bathing, Bed mobility, Community Reintegratio n, Cooking, Dressing, Eating, Fine Motor Skills, Grooming, Homemaking, Kitchen Mobility, Laundry, Pat ient Education, Safety Awareness, Splinting - Positioning, Transfers(Toilet, Tub, Shower), and Wheel Chair Management Need for home care assistant - to improve, our occupation therapists will perform initial evaluation of pt's status upon admission and devise an individualized program for Caregiver Training Weakness - to improve, our occupation therapists will perform initial evaluation of pt's status upon admission and devise an individualized program for Aquatic Therapy, Balance, Endurance, UE ROM, and UE strengthening - Diet Type Continue Heart Healthy - Diet - Liquid Texture Continue Regular - Tube Feed Continue N/A - Diet - Solid Texture Continue Regular - Shower allowing shower FUNCTIONAL STATUS: UPDATED AT WEEKLY TEAM CONFERENCE - Bladder Same accident frequency: 7-Ind - No accidents in the past 7 days - Bowel Same accident frequency: 7-Ind - No accidents in the past 7 days - Walking Same score based on distance walked: 1(<=50ft) - Wheelchair Same score based on distance traveled: 0(N/A) FUNCTIONAL STATUS: - Self-Care A. Eating sup B. Grooming Henny C. Bathing Ruddy D. Dressing - Upper Ruddy E. Dressing - Lower Ruddy F. Toileting modA - Sphincter Control G: Bladder control Ind H: Bowel control Ind - Transfers Control I. Bed/Chair/Wheelchair maxA J. Toilet maxA K. Tub/Shower ADNO - Locomotion L. Walk/Wheelchair (C) modA L. Walk/Wheelchair (W) modA M. Stairs ADNO - Communication N. Comprehension (B) Ind O. Expression (B) Ind - Social Cognition P. Social Interaction Ind Q. Problem Solving Ind R. Memory Ind - Endurance Fair - Balance Fair - Safety Awareness Fair CURRENT FUNC. DEFICITS: Safety Awareness, Transfers Control, Balance, Self-Care, Locomotion, and Endurance SIGNATURE PANEL: ([facility])
[2018-08-21] MEDS: ATORVASTATIN 10 MG TAB PO SCH (20:54)
[2018-08-21] MEDS: MELATONIN 3 MG TABLET PO PRN (20:54)
[2018-08-22] MEDS: TRAMADOL HCL 50 MG TAB PO SCH ×4 (00:16→19:24)
--- NOTE | 2018-08-22 01:06 | FAST ---
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 Daniel Mane M.D. ADMISSION DIAGNOSIS: - Debility 16 - Debility (16) RIGHT 6TH RIB FRCATURE. EATING: Activity did not occur on this shift EATING - SCORE: 0-UNK GROOMING: Activity did not occur on this shift GROOMING - SCORE: 0-UNK BATHING: Activity did not occur on this shift BATHING - SCORE: 0-UNK DRESSING - UPPER BODY: Patient is not dressing in public clothing ARTICLES SCORE Total number of steps: 0 DRESSING - UPPER BODY - SCORE: 0-UNK DRESSING - LOWER BODY: Patient is not dressing in public clothing ARTICLES SCORE Total number of steps: 0 DRESSING - LOWER BODY - SCORE: 0-UNK TOILETING: Activity did not occur on this shift TOILETING - SCORE: 0-UNK BLADDER MANAGEMENT: [place] removes incontinent device (Depends, pull ups, etc.); cleans the patient after accident / inco ntinent episode; and, applies new incontinent device. BLADDER MANAGEMENT - SCORE: 1-DEP BLADDER MANAGEMENT - FREQUENCY OF ACCIDENTS: BLADDER MANAGEMENT(FA) - STEP 1: How many accidents has the patient had during the current shift? 1 BOWEL MANAGEMENT: Activity did not occur on this shift BOWEL MANAGEMENT - SCORE: 7-IND TRANSFERS: BED, CHAIR, WHEELCHAIR: TRANSFERS: BED, CHAIR, WHEELCHAIR - STEP 1: Does the patient require assistance of a person or device, or need extra time with bed, chair, or whe elchair transfers? Yes. TRANSFERS: BED, CHAIR, WHEELCHAIR - STEP 2: Does the patient require the assistance of a helper? Yes. TRANSFERS: BED, CHAIR, WHEELCHAIR - STEP 3: How much assistance does the patient require from the helper? Lifting of the patient TRANSFERS: BED, CHAIR, WHEELCHAIR - STEP 4: Does the helper lift the patient ONLY up? ONLY down? Up AND Down? Patient needs help with all lifting TRANSFERS: BED, CHAIR, WHEELCHAIR - SCORE: 1-DEP TRANSFERS: TOILET: Activity did not occur on this shift TRANSFERS: TOILET - SCORE: 0-UNK TRANSFERS: SHOWER: Activity did not occur on this shift TRANSFERS: SHOWER - SCORE: 0-UNK TRANSFERS: TUB: Activity did not occur on this shift TRANSFERS: TUB - SCORE: 0-UNK LOCOMOTION: WALK: Activity did not occur on this shift LOCOMOTION: WALK - SCORE: 0-UNK LOCOMOTION: WHEELCHAIR: Activity did not occur on this shift LOCOMOTION: WHEELCHAIR - SCORE: 0-UNK COMPREHENSION: COMPREHENSION: TYPE: Both COMPREHENSION - STEP 1: Does the patient require help from a person or device, or need extra time to understand complex and a bstract ideas (such as current events, finances, discharge planning, medical issues, relationships, e tc)? Yes. COMPREHENSION - STEP 2: Does the patient require help to understand questions or statements about basic needs or ideas (such as hunger, thirst, sleep, safety, daily schedule, room location, or discomfort) half or more of the t madeleine? No. COMPREHENSION - STEP 3: How often does the patient need help to understand directions and conversation about basic needs? 10% - 24% of the time COMPREHENSION - SCORE: 4-MIN EXPRESSION EXPRESSION: TYPE: Both EXPRESSION - STEP 1: Does the patient require help from a person or device, or need extra time expressing complex and abst ract ideas (such as current events, finances, discharge planning, medical issues, relationships, etc) ? Yes. EXPRESSION - STEP 2: Does the patient require help to express basic necessities or ideas (such as hunger, thirst, sleep, s afety, daily schedule, room location, or discomfort) half or more of the time? No. EXPRESSION - STEP 3: How often does the patient need help to express directions and conversation about basic needs? 10-24% of the time EXPRESSION - SCORE: 4-MIN SOCIAL INTERACTION: SOCIAL INTERACTION - STEP 1: Does the patient require a helper to interact with others in social and therapeutic situations? No. SOCIAL INTERACTION - STEP 2: Does the patient need extra time in social situations, OR does s/he interact with staff, other patien ts, and family members ONLY in structured environments, OR does s/he require medication for social in teraction? Yes, patient needs extra time SOCIAL INTERACTION - SCORE: 6-ROBBY PROBLEM SOLVING: PROBLEM SOLVING - STEP 1: Does the patient need help from a person or device, or need extra time to solve complex problems such as managing a checking account or confronting interpersonal problems? Yes. PROBLEM SOLVING - STEP 2: Does the patient solve basic routine problems half or more of the time? Yes. PROBLEM SOLVING - STEP 3: How often does the patient need help to solve basic routine problems? 10%-24% of the time PROBLEM SOLVING - SCORE: 4-MIN MEMORY: MEMORY - STEP 1: Does the patient need help from a person or device, or need extra time to remember frequently encount ered people, daily routines, and executing requests? No. MEMORY - STEP 2: Does the patient have slight difficulty recognizing frequently encountered people, daily routines, or executing requests without the need for repetition or using self-initiated or environmental cues to remember? Yes. MEMORY - SCORE: 6-ROBBY SIGNATURE PANEL: The following modified sections: Eating - Score, Grooming - Score, Dressing - Upper Body - Score, Joseph ssing - Lower Body - Score, Toileting - Score, Bladder Management - Score, Bowel Management - Score, Transfers: Bed, Chair, Wheelchair - Score, Transfers: Toilet - Score, Transfers: Shower - Score, Gupta sfers: Tub - Score, Locomotion: Walk - Score, Locomotion: Wheelchair - Score, Comprehension - Score, Expression - Score, Social Interaction - Score, Problem Solving - Score, Memory - Score were [electro nically] signed by Isabela Arshad CNA on MonAug 22 2018 01:05:01 GMT-0600 (Central Standard Time)
--- NOTE | 2018-08-22 01:47 | PN ---
Date of Progress Note: 08/21/2018 Subjective: Patient was seen this morning for followup. No new complaints or problems reported. He was sitting in wheelchair. Overall, feels much better. Constipation is better. His cough and hans estion are better. Objective: Vital Signs: Reviewed. HEENT: Unremarkable. Lungs: Clear to auscultation. Heart: Sounds normal. Abdomen : Soft. Bowel sounds normal. No guarding, rigidity, tenderness, or distention. Extremities: No leg edema. Impression: 1.Pneumonia, resolved. 2.Stroke with right-sided hemiparesis. 3.Constipation. 4.Hypertension. Plan: We will continue current medication. Antibiotic Levaquin was discontinued, as patient has rec eived adequate number of days. Physical therapy will be continued per instruction from Dr. Mane. Patient is scheduled to go home tomorrow. I will see him in the morning for followup. DAWNA/MODL Voice ID: [id number] Report ID: [id number]
[2018-08-22] MEDS: ALBUTEROL 2.5 MG/3 ML NEB SOL NEB SCH ×2 (02:55→07:18)
[2018-08-22] MEDS: IPRATROPIUM BROM 0.5MG/2.5ML NEB PRN (02:55)
[2018-08-22] MEDS: HYDROCODONE/APAP 5/325 MG TAB PO PRN (03:13)
[2018-08-22] MEDS: POLYETHYL GLY 3350 17 GM/DOSE PO PRN (07:03)
[2018-08-22] MEDS: LIDOCAINE 5% PATCH TOP SCH (07:03)
[2018-08-22] MEDS: ARIPiprazole 5 MG TAB PO SCH (07:04)
[2018-08-22] MEDS: ENOXAPARIN 40 MG/0.4 ML SQ SCH (07:04)
[2018-08-22] MEDS: GUAIFENESIN 600 MG SA TAB PO SCH ×2 (07:05→19:26)
[2018-08-22] MEDS: RAMIPRIL 5 MG CAP PO SCH ×2 (07:05→19:25)
[2018-08-22] MEDS: ASPIRIN EC 81 MG TAB PO SCH (07:08)
[2018-08-22] MEDS: GABAPENTIN 300 MG CAP PO SCH ×2 (07:08→19:26)
[2018-08-22] MEDS: hydroCHLOROthiazide 12.5 MG CAP PO SCH (07:08)
[2018-08-22] MEDS: ESCITALOPRAM 20 MG TAB PO SCH (07:09)
[2018-08-22] MEDS: AMLODIPINE 5 MG TAB PO SCH ×2 (07:09→19:26)
[2018-08-22] MEDS: DOCUSATE NA 100 MG CAP PO SCH ×2 (07:09→19:25)
[2018-08-22] MEDS: MECLIZINE HCL 12.5 MG TAB PO SCH ×2 (07:09→19:25)
[2018-08-22] MEDS: FLUTICASONE 50MCG NASAL SPRAY NAS SCH ×2 (07:09→19:26)
[2018-08-22] MEDS: ACETYLCYST 20% 4 ML VIAL IH SCH (07:18)
[2018-08-22] MEDS ORDERED: ALBUTEROL 2.5 MG/3 ML NEB SOL NEB PRN (08:07)
--- NOTE | 2018-08-22 15:08 | FAST ---
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 Daniel Mane M.D. ADMISSION DIAGNOSIS: - Debility 16 - Debility (16) RIGHT 6TH RIB FRCATURE. EATING: Activity did not occur on this shift EATING - SCORE: 0-UNK GROOMING: Activity did not occur on this shift GROOMING - SCORE: 0-UNK BATHING: Activity did not occur on this shift BATHING - SCORE: 0-UNK DRESSING - UPPER BODY: Activity did not occur on this shift Patient is not dressing in public clothing ARTICLES SCORE Total number of steps: 0 DRESSING - UPPER BODY - SCORE: 0-UNK DRESSING - LOWER BODY: Activity did not occur on this shift Patient is not dressing in public clothing ARTICLES SCORE Total number of steps: 0 DRESSING - LOWER BODY - SCORE: 0-UNK TOILETING: Activity did not occur on this shift TOILETING - SCORE: 0-UNK BLADDER MANAGEMENT: Activity did not occur on this shift BLADDER MANAGEMENT - SCORE: 7-IND BOWEL MANAGEMENT: Activity did not occur on this shift BOWEL MANAGEMENT - SCORE: 7-IND TRANSFERS: BED, CHAIR, WHEELCHAIR: TRANSFERS: BED, CHAIR, WHEELCHAIR - STEP 1: Does the patient require assistance of a person or device, or need extra time with bed, chair, or whe elchair transfers? Yes. TRANSFERS: BED, CHAIR, WHEELCHAIR - STEP 2: Does the patient require the assistance of a helper? Yes. TRANSFERS: BED, CHAIR, WHEELCHAIR - STEP 3: How much assistance does the patient require from the helper? Steadying/guiding assistance TRANSFERS: BED, CHAIR, WHEELCHAIR - SCORE: 4-MIN TRANSFERS: TOILET: Activity did not occur on this shift TRANSFERS: TOILET - SCORE: 0-UNK TRANSFERS: SHOWER: Activity did not occur on this shift TRANSFERS: SHOWER - SCORE: 0-UNK TRANSFERS: TUB: Activity did not occur on this shift TRANSFERS: TUB - SCORE: 0-UNK LOCOMOTION: WALK: LOCOMOTION: WALK - STEP 1: Does the patient need help from a person or device, or need extra time to walk 150 feet? Yes. LOCOMOTION: WALK - STEP 2: How much assistance does the patient require to walk a minimum of 150 feet? Only incidental help such as contact guarding or steadying LOCOMOTION: WALK - SCORE: 4-MIN LOCOMOTION: WHEELCHAIR: LOCOMOTION: WHEELCHAIR - STEP 1: Does the patient need help to go 150 feet in a wheelchair? No. LOCOMOTION: WHEELCHAIR - SCORE: 6-ROBBY LOCOMOTION: STAIRS: Activity did not occur on this shift LOCOMOTION: STAIRS - SCORE: 0-UNK COMPREHENSION: COMPREHENSION - SCORE: 0-UNK EXPRESSION EXPRESSION - SCORE: 0-UNK SOCIAL INTERACTION: SOCIAL INTERACTION - SCORE: 0-UNK PROBLEM SOLVING: PROBLEM SOLVING - SCORE: 0-UNK MEMORY: MEMORY - SCORE: 0-UNK SIGNATURE PANEL: The following modified sections: Transfers: Bed, Chair, Wheelchair - Score, Transfers: Toilet - Score , Locomotion: Walk - Score, Locomotion: Wheelchair - Score, Locomotion: Stairs - Score were [electron ically] signed by Jacky Santoro PT on MonAug 22 2018 15:07:56 GMT-0600 (Central Standard Time)
--- NOTE | 2018-08-22 16:13 | FAST ---
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 Daniel Mane M.D. ADMISSION DIAGNOSIS: - Debility 16 - Debility (16) RIGHT 6TH RIB FRCATURE. EATING: Activity did not occur on this shift EATING - SCORE: 0-UNK GROOMING: Patient shaved Wash, rinse, and dry face Wash, rinse, and dry hands GROOMING - STEP 1: Does the patient require the assistance of a person or device, or need extra time when grooming? Yes. GROOMING - STEP 2: Does the patient require the assistance of a helper? No. The patient only requires an assistive devic e, OR takes more than reasonable time to groom, OR there is a concern for safety as the patient groom s GROOMING - SCORE: 6-ROBBY BATHING: Abdomen Buttocks Chest Left arm Left lower leg and foot Left upper leg Perineal area Right arm Right lower leg and foot Right upper leg BATHING - STEP 1: Does the patient require the assistance of a person or device, or need extra time when bathing? Yes. BATHING - STEP 2: Does the patient require the assistance of a helper? Yes. BATHING - STEP 3: How much assistance does the patient require from the helper? Only incidental help such as placement of a wash cloth in his/her hand a few times as s/he bathes OR help to bathe just one or two areas of the body BATHING - SCORE: 4-MIN DRESSING - UPPER BODY: T-shirt/pullover shirt (four steps) ARTICLES SCORE Total number of steps: 4 DRESSING - UPPER BODY - STEP 1: Does the patient require help from a person or device, or need extra time when dressing above the meek st? Yes. DRESSING - UPPER BODY - STEP 2: Does the patient require the assistance of a helper? Yes. DRESSING - UPPER BODY - STEP 3: Does the helper touch the patient while dressing? Yes. DRESSING - UPPER BODY - STEP 4: How many of the total steps does the patient complete on his/her own? 3 DRESSING - UPPER BODY - SCORE: 4-MIN DRESSING - LOWER BODY: Elastic waist pants (three steps) Sock - Left foot (one step) Sock - Right foot (one step) Tied or buckled shoe - Left foot (two steps) Tied or buckled shoe - Right foot (two steps) Underwear (three steps) ARTICLES SCORE Total number of steps: 12 DRESSING - LOWER BODY - STEP 1: Does the patient require help from a person or device, or need extra time when dressing below the meek st? Yes. DRESSING - LOWER BODY - STEP 2: Does the patient require the assistance of a helper? Yes. DRESSING - LOWER BODY - STEP 3: Does the helper touch the patient while dressing? Yes. DRESSING - LOWER BODY - STEP 4: How many of the total steps does the patient complete on his/her own? 6 DRESSING - LOWER BODY - SCORE: 3-MOD TOILETING: Activity did not occur on this shift TOILETING - SCORE: 0-UNK BLADDER MANAGEMENT: Activity did not occur on this shift BLADDER MANAGEMENT - SCORE: 7-IND BOWEL MANAGEMENT: Activity did not occur on this shift BOWEL MANAGEMENT - SCORE: 7-IND TRANSFERS: BED, CHAIR, WHEELCHAIR: Activity did not occur on this shift TRANSFERS: BED, CHAIR, WHEELCHAIR - SCORE: 0-UNK TRANSFERS: TOILET: Activity did not occur on this shift TRANSFERS: TOILET - SCORE: 0-UNK TRANSFERS: SHOWER: TRANSFERS: SHOWER - STEP 1: Does the patient require the assistance of a person or device, or need extra time with shower transfe rs? Yes. TRANSFERS: SHOWER - STEP 2: Does the patient require the assistance of a helper? Yes. TRANSFERS: SHOWER - STEP 3: How much assistance does the patient require from the helper? More than incidental help TRANSFERS: SHOWER - STEP 4: How much more help does the patient require from the helper? Lifting the patient either up OR down fr om the wheelchair onto the shower chair TRANSFERS: SHOWER - SCORE: 3-MOD TRANSFERS: TUB: Activity did not occur on this shift TRANSFERS: TUB - SCORE: 0-UNK LOCOMOTION: WALK: Activity did not occur on this shift LOCOMOTION: WALK - SCORE: 0-UNK LOCOMOTION: WHEELCHAIR: Activity did not occur on this shift LOCOMOTION: WHEELCHAIR - SCORE: 0-UNK LOCOMOTION: STAIRS: Activity did not occur on this shift LOCOMOTION: STAIRS - SCORE: 0-UNK COMPREHENSION: COMPREHENSION - SCORE: 0-UNK EXPRESSION EXPRESSION - SCORE: 0-UNK SOCIAL INTERACTION: SOCIAL INTERACTION - SCORE: 0-UNK PROBLEM SOLVING: PROBLEM SOLVING - SCORE: 0-UNK MEMORY: MEMORY - SCORE: 0-UNK SIGNATURE PANEL: The following modified sections: Eating - Score, Grooming - Score, Bathing - Score, Dressing - Upper Body - Score, Dressing - Lower Body - Score, Toileting - Score, Transfers: Bed, Chair, Wheelchair - S core, Transfers: Toilet - Score, Transfers: Shower - Score, Transfers: Tub - Score, Comprehension - S core, Expression - Score, Social Interaction - Score, Problem Solving - Score, Memory - Score were [e lectronically] signed by VALE Reyes on MonAug 22 2018 16:12:52 T-0600 ([place] Time)
--- NOTE | 2018-08-22 16:19 | FAST ---
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 Daniel Mane M.D. ADMISSION DIAGNOSIS: - Debility 16 - Debility (16) RIGHT 6TH RIB FRCATURE. EATING: EATING - STEP 1: Does the patient require the assistance of a person or device, or need extra time when eating? Yes. EATING - STEP 2: Does the patient require the assistance of a helper? No, patient only requires an assistive device, O R s/he takes more than reasonable time to eat, OR there is a safety concern, OR s/he requires modifie d food consistency EATING - SCORE: 6-ROBBY GROOMING: Comb/brush hair Wash, rinse, and dry face Wash, rinse, and dry hands GROOMING - STEP 1: Does the patient require the assistance of a person or device, or need extra time when grooming? Yes. GROOMING - STEP 2: Does the patient require the assistance of a helper? No. The patient only requires an assistive devic e, OR takes more than reasonable time to groom, OR there is a concern for safety as the patient groom s GROOMING - SCORE: 6-ROBBY BATHING: Activity did not occur on this shift BATHING - SCORE: 0-UNK DRESSING - UPPER BODY: T-shirt/pullover shirt (four steps) ARTICLES SCORE Total number of steps: 4 DRESSING - UPPER BODY - STEP 1: Does the patient require help from a person or device, or need extra time when dressing above the meek st? Yes. DRESSING - UPPER BODY - STEP 2: Does the patient require the assistance of a helper? Yes. DRESSING - UPPER BODY - STEP 3: Does the helper touch the patient while dressing? Yes. DRESSING - UPPER BODY - STEP 4: How many of the total steps does the patient complete on his/her own? 3 DRESSING - UPPER BODY - SCORE: 4-MIN DRESSING - LOWER BODY: Elastic waist pants (three steps) Sock - Left foot (one step) Sock - Right foot (one step) Tied or buckled shoe - Left foot (two steps) Tied or buckled shoe - Right foot (two steps) Underwear (three steps) ARTICLES SCORE Total number of steps: 12 DRESSING - LOWER BODY - STEP 1: Does the patient require help from a person or device, or need extra time when dressing below the meek st? Yes. DRESSING - LOWER BODY - STEP 2: Does the patient require the assistance of a helper? Yes. DRESSING - LOWER BODY - STEP 3: Does the helper touch the patient while dressing? Yes. DRESSING - LOWER BODY - STEP 4: How many of the total steps does the patient complete on his/her own? 2 DRESSING - LOWER BODY - STEP 5: Does patient require total assistance for dressing below the waist such as the helper holding clothin g and performing basically all the activities? Yes. DRESSING - LOWER BODY - SCORE: 1-DEP TOILETING: TOILETING - STEP 1: Does the patient require the assistance of a person or device, or need extra time with toileting? Yes . TOILETING - STEP 2: Does the patient require the assistance of a helper? Yes. TOILETING - STEP 3: How much assistance does the patient require from the helper? Hands-on assistance from the helper TOILETING - STEP 4: Of the 3 tasks: 1) Adjusting clothing prior to use, 2) Cleansing of perineal area, 3) Adjusting clot stephenie after use; How many tasks does the patient perform WITHOUT assistance of the helper? One task TOILETING - SCORE: 2-MAX BLADDER MANAGEMENT: [place] removes incontinent device (Depends, pull ups, etc.); cleans the patient after accident / inco ntinent episode; and, applies new incontinent device. BLADDER MANAGEMENT - SCORE: 1-DEP BLADDER MANAGEMENT - FREQUENCY OF ACCIDENTS: BLADDER MANAGEMENT(FA) - STEP 1: How many accidents has the patient had during the current shift? 0 BOWEL MANAGEMENT: Activity did not occur on this shift BOWEL MANAGEMENT - SCORE: 7-IND BOWEL MANAGEMENT - FREQUENCY OF ACCIDENTS: BOWEL MANAGEMENT(FA) - STEP 1: How many accidents has the patient had during the current shift? 0 TRANSFERS: BED, CHAIR, WHEELCHAIR: TRANSFERS: BED, CHAIR, WHEELCHAIR - STEP 1: Does the patient require assistance of a person or device, or need extra time with bed, chair, or whe elchair transfers? Yes. TRANSFERS: BED, CHAIR, WHEELCHAIR - STEP 2: Does the patient require the assistance of a helper? Yes. TRANSFERS: BED, CHAIR, WHEELCHAIR - STEP 3: How much assistance does the patient require from the helper? Lifting of the legs TRANSFERS: BED, CHAIR, WHEELCHAIR - STEP 4: How many legs does the patient require the helper to lift? one leg TRANSFERS: BED, CHAIR, WHEELCHAIR - SCORE: 4-MIN TRANSFERS: TOILET: TRANSFERS: TOILET - STEP 1: Does the patient require the assistance of a person or device, or need extra time with toilet transfe rs? Yes. TRANSFERS: TOILET - STEP 2: Does the patient require the assistance of a helper? Yes. TRANSFERS: TOILET - STEP 3: How much assistance does the patient require from the helper? Patient performs half or more of the tr ansferring tasks TRANSFERS: TOILET - STEP 4: Does the patient need only incidental help such as contact guard or steadying during toilet transfer? No. Patient needs more than incidental help TRANSFERS: TOILET - SCORE: 3-MOD TRANSFERS: SHOWER: Activity did not occur on this shift TRANSFERS: SHOWER - SCORE: 0-UNK TRANSFERS: TUB: Activity did not occur on this shift TRANSFERS: TUB - SCORE: 0-UNK LOCOMOTION: WALK: Activity did not occur on this shift LOCOMOTION: WALK - SCORE: 0-UNK LOCOMOTION: WHEELCHAIR: Activity did not occur on this shift LOCOMOTION: WHEELCHAIR - SCORE: 0-UNK COMPREHENSION: COMPREHENSION: TYPE: Both COMPREHENSION - STEP 1: Does the patient require help from a person or device, or need extra time to understand complex and a bstract ideas (such as current events, finances, discharge planning, medical issues, relationships, e tc)? No. COMPREHENSION - STEP 2: Does the patient need extra time, require an assistive device (such as glasses for visual comprehensi on or a hearing aid for auditory comprehension) or does s/he have mild difficulty understanding compl ex and abstract information? Yes. COMPREHENSION - SCORE: 6-ROBBY EXPRESSION EXPRESSION: TYPE: Both EXPRESSION - STEP 1: Does the patient require help from a person or device, or need extra time expressing complex and abst ract ideas (such as current events, finances, discharge planning, medical issues, relationships, etc) ? No. EXPRESSION - STEP 2: Does the patient need extra time, require an assistive device (such as augmentive communication syste m or a communication board), OR does s/he have mild difficulty expressing complex and abstract ideas (including mild dysarthria or mild word-find problems)? Yes. EXPRESSION - SCORE: 6-ROBBY SOCIAL INTERACTION: SOCIAL INTERACTION - STEP 1: Does the patient require a helper to interact with others in social and therapeutic situations? No. SOCIAL INTERACTION - STEP 2: Does the patient need extra time in social situations, OR does s/he interact with staff, other patien ts, and family members ONLY in structured environments, OR does s/he require medication for social in teraction? Yes, patient needs extra time SOCIAL INTERACTION - SCORE: 6-ROBBY PROBLEM SOLVING: PROBLEM SOLVING - STEP 1: Does the patient need help from a person or device, or need extra time to solve complex problems such as managing a checking account or confronting interpersonal problems? No. PROBLEM SOLVING - STEP 2: Does the patient require extra time to make decisions or solve problems, OR does s/he have slight dif ficulty reading, initiating, or self-correcting in unfamiliar situations? Yes, patient needs extra ti me. PROBLEM SOLVING - SCORE: 6-ROBBY MEMORY: MEMORY - STEP 1: Does the patient need help from a person or device, or need extra time to remember frequently encount ered people, daily routines, and executing requests? No. MEMORY - STEP 2: Does the patient have slight difficulty recognizing frequently encountered people, daily routines, or executing requests without the need for repetition or using self-initiated or environmental cues to remember? Yes. MEMORY - SCORE: 6-ROBBY SIGNATURE PANEL: The following modified sections: Eating - Score, Grooming - Score, Bathing - Score, Dressing - Upper Body - Score, Toileting - Score, Bladder Management - Score, Bowel Management - Score, Transfers: Bed , Chair, Wheelchair - Score, Transfers: Toilet - Score, Transfers: Shower - Score, Transfers: Tub - S core, Locomotion: Walk - Score, Locomotion: Wheelchair - Score, Comprehension - Score, Expression - S core, Social Interaction - Score, Problem Solving - Score, Memory - Score, Dressing - Lower Body - Sc ore were [electronically] signed by Candido HuiNDiamond on MonAug 22 2018 16:19:23 GMT-0600 ([place] Standard Time)
[2018-08-22] MEDS: ATORVASTATIN 10 MG TAB PO SCH (20:01)
--- NOTE | 2018-08-23 00:33 | PN ---
Date of Progress Note: 08/22/2018 Subjective: The patient was seen this morning for followup. Lying in bed, not in any distress. No new complaints or problems reported. The patient informed me that as of yesterday, Rehab was able to get extension on his rehab stay, and they could get extension until Monday of this week. Objective: Vital Signs: Reviewed. HEENT: Unremarkable. Lungs: Clear to auscultation. No rhonchi. No rales. Heart: Sounds normal. Abdomen: Soft. Bowel sounds normal. No guarding, rigidity, tenderness, or distention. Extremities: No leg edema. Impression: 1.Pneumonia, resolved. 2.Hypertension. 3.Stroke with right-sided hemiparesis. 4.Debility. 5.Constipation. Plan: The patient's constipation is well controlled. We will continue current medications. Continu e physical therapy per guidance of Dr. Mane. We will also go ahead and discontinue nebulizer saranya atment. Instead of scheduled nebulizer treatment, we will make it p.r.n. and discontinue Mucomyst. DAWNA/MODL Voice ID: [id number] Report ID: [id number]
[2018-08-23] MEDS: TRAMADOL HCL 50 MG TAB PO SCH ×4 (00:38→18:59)
--- NOTE | 2018-08-23 02:14 | FAST ---
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 Daniel Mane M.D. ADMISSION DIAGNOSIS: - Debility 16 - Debility (16) RIGHT 6TH RIB FRCATURE. EATING: Activity did not occur on this shift EATING - SCORE: 0-UNK GROOMING: Activity did not occur on this shift GROOMING - SCORE: 0-UNK BATHING: Activity did not occur on this shift BATHING - SCORE: 0-UNK DRESSING - UPPER BODY: Patient is not dressing in public clothing ARTICLES SCORE Total number of steps: 0 DRESSING - UPPER BODY - SCORE: 0-UNK DRESSING - LOWER BODY: Patient is not dressing in public clothing ARTICLES SCORE Total number of steps: 0 DRESSING - LOWER BODY - SCORE: 0-UNK TOILETING: TOILETING - STEP 1: Does the patient require the assistance of a person or device, or need extra time with toileting? Yes . TOILETING - STEP 2: Does the patient require the assistance of a helper? Yes. TOILETING - STEP 3: How much assistance does the patient require from the helper? Hands-on assistance from the helper TOILETING - STEP 4: Of the 3 tasks: 1) Adjusting clothing prior to use, 2) Cleansing of perineal area, 3) Adjusting clot stephenie after use; How many tasks does the patient perform WITHOUT assistance of the helper? Three tasks with steadying assistance from the helper TOILETING - SCORE: 4-MIN BLADDER MANAGEMENT: [place] removes incontinent device (Depends, pull ups, etc.); cleans the patient after accident / inco ntinent episode; and, applies new incontinent device. BLADDER MANAGEMENT - SCORE: 1-DEP BOWEL MANAGEMENT: Activity did not occur on this shift BOWEL MANAGEMENT - SCORE: 7-IND TRANSFERS: BED, CHAIR, WHEELCHAIR: TRANSFERS: BED, CHAIR, WHEELCHAIR - STEP 1: Does the patient require assistance of a person or device, or need extra time with bed, chair, or whe elchair transfers? Yes. TRANSFERS: BED, CHAIR, WHEELCHAIR - STEP 2: Does the patient require the assistance of a helper? Yes. TRANSFERS: BED, CHAIR, WHEELCHAIR - STEP 3: How much assistance does the patient require from the helper? Lifting of the legs TRANSFERS: BED, CHAIR, WHEELCHAIR - STEP 4: How many legs does the patient require the helper to lift? both legs TRANSFERS: BED, CHAIR, WHEELCHAIR - SCORE: 3-MOD TRANSFERS: TOILET: TRANSFERS: TOILET - STEP 1: Does the patient require the assistance of a person or device, or need extra time with toilet transfe rs? Yes. TRANSFERS: TOILET - STEP 2: Does the patient require the assistance of a helper? Yes. TRANSFERS: TOILET - STEP 3: How much assistance does the patient require from the helper? Patient performs half or more of the tr ansferring tasks TRANSFERS: TOILET - STEP 4: Does the patient need only incidental help such as contact guard or steadying during toilet transfer? Yes. TRANSFERS: TOILET - SCORE: 4-MIN TRANSFERS: SHOWER: Activity did not occur on this shift TRANSFERS: SHOWER - SCORE: 0-UNK TRANSFERS: TUB: Activity did not occur on this shift TRANSFERS: TUB - SCORE: 0-UNK LOCOMOTION: WALK: Activity did not occur on this shift LOCOMOTION: WALK - SCORE: 0-UNK LOCOMOTION: WHEELCHAIR: Activity did not occur on this shift LOCOMOTION: WHEELCHAIR - SCORE: 0-UNK COMPREHENSION: COMPREHENSION: TYPE: Both COMPREHENSION - STEP 1: Does the patient require help from a person or device, or need extra time to understand complex and a bstract ideas (such as current events, finances, discharge planning, medical issues, relationships, e tc)? Yes. COMPREHENSION - STEP 2: Does the patient require help to understand questions or statements about basic needs or ideas (such as hunger, thirst, sleep, safety, daily schedule, room location, or discomfort) half or more of the t madeleine? No. COMPREHENSION - STEP 3: How often does the patient need help to understand directions and conversation about basic needs? 10% - 24% of the time COMPREHENSION - SCORE: 4-MIN EXPRESSION EXPRESSION: TYPE: Both EXPRESSION - STEP 1: Does the patient require help from a person or device, or need extra time expressing complex and abst ract ideas (such as current events, finances, discharge planning, medical issues, relationships, etc) ? Yes. EXPRESSION - STEP 2: Does the patient require help to express basic necessities or ideas (such as hunger, thirst, sleep, s afety, daily schedule, room location, or discomfort) half or more of the time? No. EXPRESSION - STEP 3: How often does the patient need help to express directions and conversation about basic needs? 10-24% of the time EXPRESSION - SCORE: 4-MIN SOCIAL INTERACTION: SOCIAL INTERACTION - STEP 1: Does the patient require a helper to interact with others in social and therapeutic situations? No. SOCIAL INTERACTION - STEP 2: Does the patient need extra time in social situations, OR does s/he interact with staff, other patien ts, and family members ONLY in structured environments, OR does s/he require medication for social in teraction? Yes, patient needs extra time SOCIAL INTERACTION - SCORE: 6-ROBBY PROBLEM SOLVING: PROBLEM SOLVING - STEP 1: Does the patient need help from a person or device, or need extra time to solve complex problems such as managing a checking account or confronting interpersonal problems? Yes. PROBLEM SOLVING - STEP 2: Does the patient solve basic routine problems half or more of the time? Yes. PROBLEM SOLVING - STEP 3: How often does the patient need help to solve basic routine problems? 10%-24% of the time PROBLEM SOLVING - SCORE: 4-MIN MEMORY: MEMORY - STEP 1: Does the patient need help from a person or device, or need extra time to remember frequently encount ered people, daily routines, and executing requests? Yes. MEMORY - STEP 2: How often does the patient need help to remember frequently encountered people, daily routines, and e xecuting requests? 10% - 24% of the time MEMORY - SCORE: 4-MIN SIGNATURE PANEL: The following modified sections: Eating - Score, Grooming - Score, Bathing - Score, Dressing - Upper Body - Score, Dressing - Lower Body - Score, Toileting - Score, Bladder Management - Score, Bowel Man agement - Score, Transfers: Bed, Chair, Wheelchair - Score, Transfers: Toilet - Score, Transfers: Kayla wer - Score, Transfers: Tub - Score, Locomotion: Walk - Score, Locomotion: Wheelchair - Score, Compre hension - Score, Expression - Score, Social Interaction - Score, Problem Solving - Score, Memory - Sc ore were [electronically] signed by Milly Arteaga CNA on MonAug 23 2018 02:13:25 [facility]-06 ([facility] andard Morris)
[2018-08-23 06:02] LABS: Absolute Lymphocytes (CBC) 1.3 K/uL (0.7-4.9); Absolute Monocytes 0.4 K/uL (0.1-1.3); Absolute Neutrophil 2.8 K/uL (1.8-8.0); Basophils % 0.7 % (0-1.3); Eosinophils % 2.2 % (0-4.4); Hematocrit 36.8 % (39.6-49.0); Lymphocytes % 28.1 % (15.3-44.8); MPV 6.6 fL (7.6-11.3); Monocytes % 8.9 % (3.3-12.3); RBC Red Blood Cell Count 4.23 M/uL (4.33-5.43)
[2018-08-23 06:20] LABS: Albumin 3.6 g/dL (3.4-5.0); Potassium 4.1 mmol/L (3.5-5.1); Prealbumin 24.4 mg/dL (20-40)
[2018-08-23] MEDS: FLUTICASONE 50MCG NASAL SPRAY NAS SCH ×2 (08:00→19:00)
[2018-08-23] MEDS: RAMIPRIL 5 MG CAP PO SCH ×2 (08:32→19:00)
[2018-08-23] MEDS: ARIPiprazole 5 MG TAB PO SCH (08:33)
[2018-08-23] MEDS: hydroCHLOROthiazide 12.5 MG CAP PO SCH (08:34)
[2018-08-23] MEDS: GABAPENTIN 300 MG CAP PO SCH ×2 (08:34→19:00)
[2018-08-23] MEDS: MECLIZINE HCL 12.5 MG TAB PO SCH ×2 (08:34→19:00)
[2018-08-23] MEDS: GUAIFENESIN 600 MG SA TAB PO SCH ×2 (08:34→19:00)
[2018-08-23] MEDS: ESCITALOPRAM 20 MG TAB PO SCH (08:35)
[2018-08-23] MEDS: ASPIRIN EC 81 MG TAB PO SCH (08:35)
[2018-08-23] MEDS: LIDOCAINE 5% PATCH TOP SCH (08:37)
[2018-08-23] MEDS: ENOXAPARIN 40 MG/0.4 ML SQ SCH (08:37)
[2018-08-23] MEDS: DOCUSATE NA 100 MG CAP PO SCH ×2 (10:37→19:00)
[2018-08-23] MEDS: AMLODIPINE 5 MG TAB PO SCH ×2 (10:38→19:01)
--- NOTE | 2018-08-23 14:44 | FAST ---
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 Daniel Mane M.D. ADMISSION DIAGNOSIS: - Debility 16 - Debility (16) RIGHT 6TH RIB FRCATURE. EATING: Activity did not occur on this shift EATING - SCORE: 0-UNK GROOMING: Activity did not occur on this shift GROOMING - SCORE: 0-UNK BATHING: Activity did not occur on this shift BATHING - SCORE: 0-UNK DRESSING - UPPER BODY: Activity did not occur on this shift Patient is not dressing in public clothing ARTICLES SCORE Total number of steps: 0 DRESSING - UPPER BODY - SCORE: 0-UNK DRESSING - LOWER BODY: Activity did not occur on this shift Patient is not dressing in public clothing ARTICLES SCORE Total number of steps: 0 DRESSING - LOWER BODY - SCORE: 0-UNK TOILETING: Activity did not occur on this shift TOILETING - SCORE: 0-UNK BLADDER MANAGEMENT: Activity did not occur on this shift BLADDER MANAGEMENT - SCORE: 7-IND BOWEL MANAGEMENT: Activity did not occur on this shift BOWEL MANAGEMENT - SCORE: 7-IND TRANSFERS: BED, CHAIR, WHEELCHAIR: TRANSFERS: BED, CHAIR, WHEELCHAIR - STEP 1: Does the patient require assistance of a person or device, or need extra time with bed, chair, or whe elchair transfers? Yes. TRANSFERS: BED, CHAIR, WHEELCHAIR - STEP 2: Does the patient require the assistance of a helper? Yes. TRANSFERS: BED, CHAIR, WHEELCHAIR - STEP 3: How much assistance does the patient require from the helper? Steadying/guiding assistance TRANSFERS: BED, CHAIR, WHEELCHAIR - SCORE: 4-MIN TRANSFERS: TOILET: Activity did not occur on this shift TRANSFERS: TOILET - SCORE: 0-UNK TRANSFERS: SHOWER: Activity did not occur on this shift TRANSFERS: SHOWER - SCORE: 0-UNK TRANSFERS: TUB: Activity did not occur on this shift TRANSFERS: TUB - SCORE: 0-UNK LOCOMOTION: WALK: LOCOMOTION: WALK - STEP 1: Does the patient need help from a person or device, or need extra time to walk 150 feet? Yes. LOCOMOTION: WALK - STEP 2: How much assistance does the patient require to walk a minimum of 150 feet? Only incidental help such as contact guarding or steadying LOCOMOTION: WALK - SCORE: 4-MIN LOCOMOTION: WHEELCHAIR: LOCOMOTION: WHEELCHAIR - STEP 1: Does the patient need help to go 150 feet in a wheelchair? No. LOCOMOTION: WHEELCHAIR - SCORE: 6-ROBBY LOCOMOTION: STAIRS: Activity did not occur on this shift LOCOMOTION: STAIRS - SCORE: 0-UNK COMPREHENSION: COMPREHENSION - SCORE: 0-UNK EXPRESSION EXPRESSION - SCORE: 0-UNK SOCIAL INTERACTION: SOCIAL INTERACTION - SCORE: 0-UNK PROBLEM SOLVING: PROBLEM SOLVING - SCORE: 0-UNK MEMORY: MEMORY - SCORE: 0-UNK SIGNATURE PANEL: The following modified sections: Transfers: Bed, Chair, Wheelchair - Score, Transfers: Toilet - Score , Locomotion: Walk - Score, Locomotion: Wheelchair - Score, Locomotion: Stairs - Score were [electron ically] signed by Jacky Santoro PT on MonAug 23 2018 14:43:08 T-0600 (Central Standard Time)
--- NOTE | 2018-08-23 18:33 | R.PN ---
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 Pt denied any Shortness of Breath. Propelled wheelchair 160' with standby assistance. Ambulated 550' with contact guard assistance using a left quad cane. Hgb is 12.5. Prelbumin 24.4. Ambulated 500' with standby assistance using a rolling walker. Up and down 15 steps with standby assi stance. VITAL SIGNS Temperature: 97.7 F SBP/DBP: 119/70 Pulse: 76 Resp: 16 MEDICATION ALLERGIES: Sulfa ENVIRONMENTAL ALLERGIES: None Known - Substance Allergies None Known - Other Allergies None Known NURSING: - Shower allowing shower ACTIVITIES OOB only with supervision THERAPIES: - Occupational Therapy Evaluate and Treat. - Physical Therapy Evaluate and Treat. PHYSICAL EXAM - Gen Alert and awake Lying in bed No apparent distress Oriented to: person, time, and place - Skin No breakdown No abnormalities - Eyes No abnormalities - ENMT No abnormalities - Neck No abnormalities - CVS RRR - Chest No abnormalities - Resp Clear to auscultation - Abd + bowel sounds - GI Soft Deferred - No abnormalities - Ext Mild bilateral lower extremity edema. - MSK 4+/5 weakness in both lower extremities. - Neuro No focal deficits - Psych No abnormalities ASSESSMENT: Pt. is a 68 yo Right-handed white male.On 08/03/2018 he was admitted to [facility] with diagnosis RIGHT 6TH RIB FRCATURE.His impairment category is Debility 16 - Debility (16).Pre -morbidly, Pt. was independent/mod-I in Sphincter Control, Transfers Control, Communication, Social C ognition, Self-Care, and Locomotion; and he had good Sphincter Control.Currently, he has deficits of Safety Awareness, Transfers Control, Balance, Self-Care, Locomotion, and Endurance.Pt. is now referre d to [facility] for acute in-patient rehabilitation in order to maximize patie nt's functional independence in activities of daily living, strength, ROM, and mobility.- Rehab Goal Patient has realistic goal of being discharged at assistance level 6-Henny to reside at Home with Fam liana/Relatives. MDM/PLAN: - Physical Therapy Gait dysfunction - to improve, our physical therapists will perform initial evaluation of pt's statu s upon admission and devise an individualized program for Gait Training, and Wheel Chair mobility Inability to transfer - to improve, our physical therapists will perform initial evaluation of pt's status upon admission and devise an individualized program for Bed mobility Need for home safety evaluation - to improve, our physical therapists will perform initial evaluatio n of pt's status upon admission and devise an individualized program for Home Evaluation Need in caregiver upon discharge - to improve, our physical therapists will perform initial evaluati on of pt's status upon admission and devise an individualized program for Caregiver Training New precaution - to improve, our physical therapists will perform initial evaluation of pt's status upon admission and devise an individualized program for Patient precaution education Edema - to improve, our physical therapists will perform initial evaluation of pt's status upon admi ssion and devise an individualized program for Elevation Training, and Lymphedema Therapy Poor balance - to improve, our physical therapists will perform initial evaluation of pt's status up on admission and devise an individualized program for Balance Training Poor endurance - to improve, our physical therapists will perform initial evaluation of pt's status upon admission and devise an individualized program for Endurance Training Weakness - to improve, our physical therapists will perform initial evaluation of pt's status upon a dmission and devise an individualized program for Aquatic Therapy, Neuromuscular Reeducation, and Str engthening Achieving independence - to improve, our physical therapists will perform initial evaluation of pt's status upon admission and devise an individualized program for Community Reintegration Activities - Occupational Therapy ADL deficits - to improve, our occupation therapists will perform initial evaluation of pt's status upon admission and devise an individualized program for Bathing, Bed mobility, Community Reintegratio n, Cooking, Dressing, Eating, Fine Motor Skills, Grooming, Homemaking, Kitchen Mobility, Laundry, Pat ient Education, Safety Awareness, Splinting - Positioning, Transfers(Toilet, Tub, Shower), and Wheel Chair Management Need for care team coordinator scheduler - to improve, our occupation therapists will perform initial evaluation of pt's status upon admission and devise an individualized program for Caregiver Training Weakness - to improve, our occupation therapists will perform initial evaluation of pt's status upon admission and devise an individualized program for Aquatic Therapy, Balance, Endurance, UE ROM, and UE strengthening - Diet Type Continue Heart Healthy - Diet - Liquid Texture Continue Regular - Tube Feed Continue N/A - Diet - Solid Texture Continue Regular - Shower allowing shower FUNCTIONAL STATUS: UPDATED AT WEEKLY TEAM CONFERENCE - Bladder Same accident frequency: 7-Ind - No accidents in the past 7 days - Bowel Same accident frequency: 7-Ind - No accidents in the past 7 days - Walking Same score based on distance walked: 1(<=50ft) - Wheelchair Same score based on distance traveled: 0(N/A) FUNCTIONAL STATUS: - Self-Care A. Eating sup B. Grooming Henny C. Bathing Ruddy D. Dressing - Upper Ruddy E. Dressing - Lower Ruddy F. Toileting modA - Sphincter Control G: Bladder control Ind H: Bowel control Ind - Transfers Control I. Bed/Chair/Wheelchair maxA J. Toilet maxA K. Tub/Shower ADNO - Locomotion L. Walk/Wheelchair (C) modA L. Walk/Wheelchair (W) modA M. Stairs ADNO - Communication N. Comprehension (B) Ind O. Expression (B) Ind - Social Cognition P. Social Interaction Ind Q. Problem Solving Ind R. Memory Ind - Endurance Fair - Balance Fair - Safety Awareness Fair CURRENT FUNC. 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
[2018-08-23] MEDS: ATORVASTATIN 10 MG TAB PO SCH (20:27)
[2018-08-24] MEDS: TRAMADOL HCL 50 MG TAB PO SCH ×3 (01:03→12:51)
--- NOTE | 2018-08-24 01:08 | PN ---
Date of Progress Note: 08/23/2018 Subjective: The patient was seen this morning for followup. No new complaints or problems reported by the patient. No cough or congestion. No constipation. Objective: Vital Signs: Reviewed. HEENT: Unremarkable. Lungs: Clear to auscultation. No rhonchi. No rales. Heart: Sounds normal. Abdomen: Soft. Bowel sounds normal. No guarding, rigidity, tenderness, or distention. Extremities: No leg edema. Impression: 1.Pneumonia, resolved. 2.Constipation. 3.Debility. 4.Stroke with right-sided hemiparesis. 5.Hypertension. Laboratory Data: Today, white count 4.7, hemoglobin 12.5, and platelets 356. Sodium 134, potassium 4.1, chloride 99, bicarb 30, BUN 14, creatinine 0.98, and glucose 88. Plan: We will go ahead and continue current medications, physical therapy under guidance of Dr. Marley vega, and I will see him tomorrow for followup. His constipation problem is well controlled. DAWNA/MODL Voice ID: [id number] Report ID: [id number]
--- NOTE | 2018-08-24 02:03 | FAST ---
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 Daniel Mane M.D. ADMISSION DIAGNOSIS: - Debility 16 - Debility (16) RIGHT 6TH RIB FRCATURE. EATING: Activity did not occur on this shift EATING - SCORE: 0-UNK GROOMING: Activity did not occur on this shift GROOMING - SCORE: 0-UNK BATHING: Activity did not occur on this shift BATHING - SCORE: 0-UNK DRESSING - UPPER BODY: Patient is not dressing in public clothing ARTICLES SCORE Total number of steps: 0 DRESSING - UPPER BODY - SCORE: 0-UNK DRESSING - LOWER BODY: Patient is not dressing in public clothing ARTICLES SCORE Total number of steps: 0 DRESSING - LOWER BODY - SCORE: 0-UNK TOILETING: TOILETING - STEP 1: Does the patient require the assistance of a person or device, or need extra time with toileting? Yes . TOILETING - STEP 2: Does the patient require the assistance of a helper? Yes. TOILETING - STEP 3: How much assistance does the patient require from the helper? Hands-on assistance from the helper TOILETING - STEP 4: Of the 3 tasks: 1) Adjusting clothing prior to use, 2) Cleansing of perineal area, 3) Adjusting clot stephenie after use; How many tasks does the patient perform WITHOUT assistance of the helper? Three tasks with steadying assistance from the helper TOILETING - SCORE: 4-MIN BLADDER MANAGEMENT: [place] removes incontinent device (Depends, pull ups, etc.); cleans the patient after accident / inco ntinent episode; and, applies new incontinent device. BLADDER MANAGEMENT - SCORE: 1-DEP BLADDER MANAGEMENT - FREQUENCY OF ACCIDENTS: BLADDER MANAGEMENT(FA) - STEP 1: How many accidents has the patient had during the current shift? 1 BOWEL MANAGEMENT: Activity did not occur on this shift BOWEL MANAGEMENT - SCORE: 7-IND TRANSFERS: BED, CHAIR, WHEELCHAIR: TRANSFERS: BED, CHAIR, WHEELCHAIR - STEP 1: Does the patient require assistance of a person or device, or need extra time with bed, chair, or whe elchair transfers? Yes. TRANSFERS: BED, CHAIR, WHEELCHAIR - STEP 2: Does the patient require the assistance of a helper? Yes. TRANSFERS: BED, CHAIR, WHEELCHAIR - STEP 3: How much assistance does the patient require from the helper? Lifting of the legs TRANSFERS: BED, CHAIR, WHEELCHAIR - STEP 4: How many legs does the patient require the helper to lift? both legs TRANSFERS: BED, CHAIR, WHEELCHAIR - SCORE: 3-MOD TRANSFERS: TOILET: TRANSFERS: TOILET - STEP 1: Does the patient require the assistance of a person or device, or need extra time with toilet transfe rs? Yes. TRANSFERS: TOILET - STEP 2: Does the patient require the assistance of a helper? Yes. TRANSFERS: TOILET - STEP 3: How much assistance does the patient require from the helper? Patient performs half or more of the tr ansferring tasks TRANSFERS: TOILET - STEP 4: Does the patient need only incidental help such as contact guard or steadying during toilet transfer? No. Patient needs more than incidental help TRANSFERS: TOILET - SCORE: 3-MOD TRANSFERS: SHOWER: Activity did not occur on this shift TRANSFERS: SHOWER - SCORE: 0-UNK TRANSFERS: TUB: Activity did not occur on this shift TRANSFERS: TUB - SCORE: 0-UNK LOCOMOTION: WALK: Activity did not occur on this shift LOCOMOTION: WALK - SCORE: 0-UNK LOCOMOTION: WHEELCHAIR: Activity did not occur on this shift LOCOMOTION: WHEELCHAIR - SCORE: 0-UNK COMPREHENSION: COMPREHENSION: TYPE: Both COMPREHENSION - STEP 1: Does the patient require help from a person or device, or need extra time to understand complex and a bstract ideas (such as current events, finances, discharge planning, medical issues, relationships, e tc)? No. COMPREHENSION - STEP 2: Does the patient need extra time, require an assistive device (such as glasses for visual comprehensi on or a hearing aid for auditory comprehension) or does s/he have mild difficulty understanding compl ex and abstract information? Yes. COMPREHENSION - SCORE: 6-ROBBY EXPRESSION EXPRESSION: TYPE: Both EXPRESSION - STEP 1: Does the patient require help from a person or device, or need extra time expressing complex and abst ract ideas (such as current events, finances, discharge planning, medical issues, relationships, etc) ? No. EXPRESSION - STEP 2: Does the patient need extra time, require an assistive device (such as augmentive communication syste m or a communication board), OR does s/he have mild difficulty expressing complex and abstract ideas (including mild dysarthria or mild word-find problems)? Yes. EXPRESSION - SCORE: 6-ROBBY SOCIAL INTERACTION: SOCIAL INTERACTION - STEP 1: Does the patient require a helper to interact with others in social and therapeutic situations? No. SOCIAL INTERACTION - STEP 2: Does the patient need extra time in social situations, OR does s/he interact with staff, other patien ts, and family members ONLY in structured environments, OR does s/he require medication for social in teraction? Yes, patient needs extra time SOCIAL INTERACTION - SCORE: 6-ROBBY PROBLEM SOLVING: PROBLEM SOLVING - STEP 1: Does the patient need help from a person or device, or need extra time to solve complex problems such as managing a checking account or confronting interpersonal problems? No. PROBLEM SOLVING - STEP 2: Does the patient require extra time to make decisions or solve problems, OR does s/he have slight dif ficulty reading, initiating, or self-correcting in unfamiliar situations? Yes, patient needs extra ti me. PROBLEM SOLVING - SCORE: 6-ROBBY MEMORY: MEMORY - STEP 1: Does the patient need help from a person or device, or need extra time to remember frequently encount ered people, daily routines, and executing requests? No. MEMORY - STEP 2: Does the patient have slight difficulty recognizing frequently encountered people, daily routines, or executing requests without the need for repetition or using self-initiated or environmental cues to remember? Yes. MEMORY - SCORE: 6-ROBBY SIGNATURE PANEL: The following modified sections: Eating - Score, Grooming - Score, Bathing - Score, Dressing - Upper Body - Score, Dressing - Lower Body - Score, Toileting - Score, Bladder Management - Score, Bowel Man agement - Score, Transfers: Bed, Chair, Wheelchair - Score, Transfers: Toilet - Score, Transfers: Kayla wer - Score, Transfers: Tub - Score, Locomotion: Walk - Score, Locomotion: Wheelchair - Score, Compre hension - Score, Expression - Score, Social Interaction - Score, Problem Solving - Score, Memory - Sc ore were [electronically] signed by Anne Rodarte RN on MonAug 24 2018 02:02:23 T-0600 (Central Stand miguel Time)
[2018-08-24] MEDS: FLUTICASONE 50MCG NASAL SPRAY NAS SCH (08:00)
[2018-08-24] MEDS: LIDOCAINE 5% PATCH TOP SCH (08:33)
[2018-08-24] MEDS: ENOXAPARIN 40 MG/0.4 ML SQ SCH (08:33)
[2018-08-24] MEDS: GUAIFENESIN 600 MG SA TAB PO SCH (08:34)
[2018-08-24] MEDS: AMLODIPINE 5 MG TAB PO SCH (08:34)
[2018-08-24] MEDS: GABAPENTIN 300 MG CAP PO SCH (08:34)
[2018-08-24] MEDS: ASPIRIN EC 81 MG TAB PO SCH (08:35)
[2018-08-24] MEDS: MECLIZINE HCL 12.5 MG TAB PO SCH (08:35)
[2018-08-24] MEDS: RAMIPRIL 5 MG CAP PO SCH (08:36)
[2018-08-24] MEDS: ESCITALOPRAM 20 MG TAB PO SCH (08:36)
[2018-08-24] MEDS: ARIPiprazole 5 MG TAB PO SCH (08:36)
[2018-08-24] MEDS: hydroCHLOROthiazide 12.5 MG CAP PO SCH (08:36)
[2018-08-24] MEDS: DOCUSATE NA 100 MG CAP PO SCH (08:37)
--- NOTE | 2018-08-24 10:19 | P.RH.PN ---
Estimated Length of Stay: 17 Expected Discharge Date: 08/25/18 Discharge Disposition Plan: Home Family Support: Yes Skilled Nursing Goal: Mobility, Transfers, Self Care Vital Signs: Last Vital Signs Temp 97.8 F 08/23/18 20:49 Pulse 71 08/23/18 20:49 Resp 18 08/23/18 20:49 BP 114/65 08/23/18 20:49 Pulse Ox 96 08/23/18 20:49 Laboratory: Laboratory Last Values WBC 4.7 K/uL (4.3-10.9) D 08/23/18 05:45 RBC 4.23 M/uL (4.33-5.43) L 08/23/18 05:45 Hgb 12.5 g/dL (13.6-17.9) L 08/23/18 05:45 Hct 36.8 % (39.6-49.0) L 08/23/18 05:45 MCV 86.9 fL (80-100) 08/23/18 05:45 MCH 29.6 pg (27.0-35.0) 08/23/18 05:45 MCHC 34.0 g/dL (32.0-36.0) 08/23/18 05:45 RDW 13.7 % (12.1-15.2) 08/23/18 05:45 Plt Count 356 K/uL (152-406) 08/23/18 05:45 MPV 6.6 fL (7.6-11.3) L 08/23/18 05:45 Neutrophils % 60.1 % (41.7-73.7) 08/23/18 05:45 Lymphocytes % 28.1 % (15.3-44.8) 08/23/18 05:45 Monocytes % 8.9 % (3.3-12.3) 08/23/18 05:45 Eosinophils % 2.2 % (0-4.4) 08/23/18 05:45 Basophils % 0.7 % (0-1.3) 08/23/18 05:45 Absolute Neutrophils 2.8 K/uL (1.8-8.0) 08/23/18 05:45 Segmented Neutrophils 59 % (40-80) 08/09/18 06:21 Band Neutrophils 3 % (0-1) H 08/09/18 06:21 Absolute Lymphocytes 1.3 K/uL (0.7-4.9) 08/23/18 05:45 Lymphocytes 21 % (15-42) 08/09/18 06:21 Monocytes 10 % (0-10) 08/09/18 06:21 Absolute Monocytes 0.4 K/uL (0.1-1.3) 08/23/18 05:45 Eosinophils 3 % (0-3) 08/09/18 06:21 Absolute Eosinophils 0.1 K/uL (0-0.5) 08/23/18 05:45 Absolute Basophils 0.0 K/uL (0-0.5) 08/23/18 05:45 Metamyelocytes 2 % (0-0) H 08/09/18 06:21 Myelocytes 2 % (0-0) H 08/09/18 06:21 Giant Platelets Present 08/09/18 06:21 Morphology Comment Not seen (NOT SEEN) 08/09/18 06:21 Sodium 134 mmol/L (136-145) L 08/23/18 05:45 Potassium 4.1 mmol/L (3.5-5.1) 08/23/18 05:45 Chloride 99 mmol/L (98-107) 08/23/18 05:45 Carbon Dioxide 30 mmol/L (21-32) 08/23/18 05:45 BUN 14 mg/dL (7-18) 08/23/18 05:45 Creatinine 0.98 mg/dL (0.55-1.3) 08/23/18 05:45 Estimated GFR 76 mL/min (=/>90) L 08/23/18 05:45 Glucose 88 mg/dL (74-106) 08/23/18 05:45 Calcium 9.1 mg/dL (8.5-10.1) 08/23/18 05:45 Magnesium 2.4 mg/dL (1.8-2.4) 08/09/18 06:21 Albumin 3.6 g/dL (3.4-5.0) 08/23/18 05:45 Prealbumin 24.4 mg/dL (20-40) 08/23/18 05:45 Miscellaneous Test Cancelled 08/20/18 15:07 Weight: 169 lb 6.4 oz Wound Present: No Closed Surgical Incision Present: No Negative Pressure Wound Therapy Present: No Physician Update: Labs were reviewed and are essentially within normal limits. He is contact guard to standby with transfers using a quad cane. He is walking 250' and modified independent with wheelchair. He needs help to put his right leg AFO. Pain Issues: [place] 5/325mg Q4H PRN. Tramadol 50mg Q6H PRN. Tylenol 500mg Q4H PRN Functional Improvement: pt has demonstrated good progress throughout the duration of therapy. He is always eager to participate and improve. pt is becoming less dependent on physical assist. pt at this time only requires some steadying assist and facilitation of anterior weight shift during initial stance. Functional Improvement Occupational Therapy: pt can benifit further therapy to addess A/E for LB dressing and cont training for pamela techniques for UB/LB dressing tasks. cont to stretch and cont to increase shoulder ROM and neur re ed with the right UE and cont to increase pt's motor control and planning for adl tasks. Cont with the POC and the goals by the supervising OTR. Speech Therapy Update: Pt is at [facility] for Auditory Comprehension and Social Interaction and [facility] for Verbal Expression, Problem Solving, and Memory. Pt has demonstrated significant progress on all of his goals and is eager to d/c home and start OP rehab. He cont to have unrealistic goals for himself. He has increased c/o dry mouth and difficulty speaking and swallowing as a result. However pt exhibited no s/s of aspiration during meals. Summary: Patient's care plan and medical terminologist goals have been reviewed and revised as necessary. Please see the Rehabilitation Signature page for all necessary signatures.
[2018-08-24 11:34] VITALS: BP 114/72; TEMP 97.7
--- NOTE | 2018-08-24 14:38 | PN ---
Date of Progress Note: 08/24/2018 Subjective: The patient was seen this morning for followup. He was lying in bed, not in any distres s. No new complaints or problems reported by the patient. Objective: Vital Signs: Reviewed. HEENT: Examination unremarkable. Lungs: Clear to auscultation. Heart: Sounds normal. Abdomen: Soft. Bowel sounds normal. No guarding, rigidity, tenderness, or distention. Extremities: No leg edema. Impression: 1.Constipation. 2.Hypertension. 3.Stroke with right-sided hemiparesis. 4.Debility. Plan: We will continue current medications. Continue current physical therapy, and the patient is s cheduled to go home tomorrow. I will see him tomorrow morning for followup, but then will possibly d ischarge him tomorrow. DAWNA/MODL Voice ID: [id number] Report ID: [id number]
--- NOTE | 2018-08-24 14:55 | FAST ---
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 Daniel Mane M.D. ADMISSION DIAGNOSIS: - Debility 16 - Debility (16) RIGHT 6TH RIB FRCATURE. EATING: Activity did not occur on this shift EATING - SCORE: 0-UNK GROOMING: Activity did not occur on this shift GROOMING - SCORE: 0-UNK BATHING: Activity did not occur on this shift BATHING - SCORE: 0-UNK DRESSING - UPPER BODY: Activity did not occur on this shift Patient is not dressing in public clothing ARTICLES SCORE Total number of steps: 0 DRESSING - UPPER BODY - SCORE: 0-UNK DRESSING - LOWER BODY: Activity did not occur on this shift Patient is not dressing in public clothing ARTICLES SCORE Total number of steps: 0 DRESSING - LOWER BODY - SCORE: 0-UNK TOILETING: Activity did not occur on this shift TOILETING - SCORE: 0-UNK BLADDER MANAGEMENT: Activity did not occur on this shift BLADDER MANAGEMENT - SCORE: 7-IND BOWEL MANAGEMENT: Activity did not occur on this shift BOWEL MANAGEMENT - SCORE: 7-IND TRANSFERS: BED, CHAIR, WHEELCHAIR: TRANSFERS: BED, CHAIR, WHEELCHAIR - STEP 1: Does the patient require assistance of a person or device, or need extra time with bed, chair, or whe elchair transfers? Yes. TRANSFERS: BED, CHAIR, WHEELCHAIR - STEP 2: Does the patient require the assistance of a helper? Yes. TRANSFERS: BED, CHAIR, WHEELCHAIR - STEP 3: How much assistance does the patient require from the helper? Only supervision TRANSFERS: BED, CHAIR, WHEELCHAIR - SCORE: 5-SUP TRANSFERS: TOILET: TRANSFERS: TOILET - STEP 1: Does the patient require the assistance of a person or device, or need extra time with toilet transfe rs? Yes. TRANSFERS: TOILET - STEP 2: Does the patient require the assistance of a helper? Yes. TRANSFERS: TOILET - STEP 3: How much assistance does the patient require from the helper? Only supervision, cuing, coaxing, OR he lp to set out transfer equipment or to lock brakes and/or lift foot rests TRANSFERS: TOILET - SCORE: 5-SUP TRANSFERS: SHOWER: Activity did not occur on this shift TRANSFERS: SHOWER - SCORE: 0-UNK TRANSFERS: TUB: Activity did not occur on this shift TRANSFERS: TUB - SCORE: 0-UNK LOCOMOTION: WALK: LOCOMOTION: WALK - STEP 1: Does the patient need help from a person or device, or need extra time to walk 150 feet? Yes. LOCOMOTION: WALK - STEP 2: How much assistance does the patient require to walk a minimum of 150 feet? Only incidental help such as contact guarding or steadying LOCOMOTION: WALK - SCORE: 4-MIN LOCOMOTION: WHEELCHAIR: LOCOMOTION: WHEELCHAIR - STEP 1: Does the patient need help to go 150 feet in a wheelchair? Yes. LOCOMOTION: WHEELCHAIR - STEP 2: How much assistance does the patient need from the helper? Only supervision, cuing, or coaxing LOCOMOTION: WHEELCHAIR - SCORE: 5-SUP LOCOMOTION: STAIRS: Activity did not occur on this shift LOCOMOTION: STAIRS - SCORE: 0-UNK COMPREHENSION: COMPREHENSION - SCORE: 0-UNK EXPRESSION EXPRESSION - SCORE: 0-UNK SOCIAL INTERACTION: SOCIAL INTERACTION - SCORE: 0-UNK PROBLEM SOLVING: PROBLEM SOLVING - SCORE: 0-UNK MEMORY: MEMORY - SCORE: 0-UNK SIGNATURE PANEL: The following modified sections: Transfers: Bed, Chair, Wheelchair - Score, Transfers: Toilet - Score , Locomotion: Walk - Score, Locomotion: Wheelchair - Score, Locomotion: Stairs - Score were [electron gerard] signed by Beti Sawant PTA on MonAug 24 2018 14:55:03 GMT-0600 (Central Standard Time)
--- NOTE | 2018-08-24 15:49 | FAST ---
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 Daniel Mane M.D. ADMISSION DIAGNOSIS: - Debility 16 - Debility (16) RIGHT 6TH RIB FRCATURE. EATING: EATING - STEP 1: Does the patient require the assistance of a person or device, or need extra time when eating? No. EATING - SCORE: 7-IND GROOMING: Comb/brush hair Oral care Patient shaved Wash, rinse, and dry face Wash, rinse, and dry hands GROOMING - STEP 1: Does the patient require the assistance of a person or device, or need extra time when grooming? No. GROOMING - SCORE: 7-IND BATHING: Abdomen Buttocks Chest Left arm Left lower leg and foot Left upper leg Perineal area Right arm Right lower leg and foot Right upper leg BATHING - STEP 1: Does the patient require the assistance of a person or device, or need extra time when bathing? Yes. BATHING - STEP 2: Does the patient require the assistance of a helper? Yes. BATHING - STEP 3: How much assistance does the patient require from the helper? Only supervision, cuing, coaxing, instr uctions, encouragement BATHING - SCORE: 5-SUP DRESSING - UPPER BODY: T-shirt/pullover shirt (four steps) ARTICLES SCORE Total number of steps: 4 DRESSING - UPPER BODY - STEP 1: Does the patient require help from a person or device, or need extra time when dressing above the meek st? Yes. DRESSING - UPPER BODY - STEP 2: Does the patient require the assistance of a helper? Yes. DRESSING - UPPER BODY - STEP 3: Does the helper touch the patient while dressing? No. DRESSING - UPPER BODY - SCORE: 5-SUP DRESSING - LOWER BODY: Elastic waist pants (three steps) Sock - Left foot (one step) Sock - Right foot (one step) Tied or buckled shoe - Left foot (two steps) Tied or buckled shoe - Right foot (two steps) Underwear (three steps) ARTICLES SCORE Total number of steps: 12 DRESSING - LOWER BODY - STEP 1: Does the patient require help from a person or device, or need extra time when dressing below the meek st? Yes. DRESSING - LOWER BODY - STEP 2: Does the patient require the assistance of a helper? Yes. DRESSING - LOWER BODY - STEP 3: Does the helper touch the patient while dressing? Yes. DRESSING - LOWER BODY - STEP 4: How many of the total steps does the patient complete on his/her own? 10 DRESSING - LOWER BODY - SCORE: 4-MIN TOILETING: TOILETING - STEP 1: Does the patient require the assistance of a person or device, or need extra time with toileting? Yes . TOILETING - STEP 2: Does the patient require the assistance of a helper? Yes. TOILETING - STEP 3: How much assistance does the patient require from the helper? Only supervision TOILETING - SCORE: 5-SUP BLADDER MANAGEMENT: Activity did not occur on this shift BLADDER MANAGEMENT - SCORE: 7-IND BOWEL MANAGEMENT: Activity did not occur on this shift BOWEL MANAGEMENT - SCORE: 7-IND TRANSFERS: BED, CHAIR, WHEELCHAIR: Activity did not occur on this shift TRANSFERS: BED, CHAIR, WHEELCHAIR - SCORE: 0-UNK TRANSFERS: TOILET: TRANSFERS: TOILET - STEP 1: Does the patient require the assistance of a person or device, or need extra time with toilet transfe rs? Yes. TRANSFERS: TOILET - STEP 2: Does the patient require the assistance of a helper? Yes. TRANSFERS: TOILET - STEP 3: How much assistance does the patient require from the helper? Only supervision, cuing, coaxing, OR he lp to set out transfer equipment or to lock brakes and/or lift foot rests TRANSFERS: TOILET - SCORE: 5-SUP TRANSFERS: SHOWER: TRANSFERS: SHOWER - STEP 1: Does the patient require the assistance of a person or device, or need extra time with shower transfe rs? Yes. TRANSFERS: SHOWER - STEP 2: Does the patient require the assistance of a helper? Yes. TRANSFERS: SHOWER - STEP 3: How much assistance does the patient require from the helper? Only supervision, cuing, coaxing, or he lp to set out transfer equipment or to lock brakes and/or lift foot rests TRANSFERS: SHOWER - SCORE: 5-SUP TRANSFERS: TUB: Activity did not occur on this shift TRANSFERS: TUB - SCORE: 0-UNK LOCOMOTION: WALK: Activity did not occur on this shift LOCOMOTION: WALK - SCORE: 0-UNK LOCOMOTION: WHEELCHAIR: Activity did not occur on this shift LOCOMOTION: WHEELCHAIR - SCORE: 0-UNK LOCOMOTION: STAIRS: Activity did not occur on this shift LOCOMOTION: STAIRS - SCORE: 0-UNK COMPREHENSION: COMPREHENSION: TYPE: Both COMPREHENSION - STEP 1: Does the patient require help from a person or device, or need extra time to understand complex and a bstract ideas (such as current events, finances, discharge planning, medical issues, relationships, e tc)? No. COMPREHENSION - STEP 2: Does the patient need extra time, require an assistive device (such as glasses for visual comprehensi on or a hearing aid for auditory comprehension) or does s/he have mild difficulty understanding compl ex and abstract information? Yes. COMPREHENSION - SCORE: 6-ROBBY EXPRESSION EXPRESSION: TYPE: Both EXPRESSION - STEP 1: Does the patient require help from a person or device, or need extra time expressing complex and abst ract ideas (such as current events, finances, discharge planning, medical issues, relationships, etc) ? No. EXPRESSION - STEP 2: Does the patient need extra time, require an assistive device (such as augmentive communication syste m or a communication board), OR does s/he have mild difficulty expressing complex and abstract ideas (including mild dysarthria or mild word-find problems)? Yes. EXPRESSION - SCORE: 6-ROBBY SOCIAL INTERACTION: SOCIAL INTERACTION - STEP 1: Does the patient require a helper to interact with others in social and therapeutic situations? No. SOCIAL INTERACTION - STEP 2: Does the patient need extra time in social situations, OR does s/he interact with staff, other patien ts, and family members ONLY in structured environments, OR does s/he require medication for social in teraction? Yes, patient requires medication for social interaction SOCIAL INTERACTION - SCORE: 6-ROBBY PROBLEM SOLVING: PROBLEM SOLVING - STEP 1: Does the patient need help from a person or device, or need extra time to solve complex problems such as managing a checking account or confronting interpersonal problems? No. PROBLEM SOLVING - STEP 2: Does the patient require extra time to make decisions or solve problems, OR does s/he have slight dif ficulty reading, initiating, or self-correcting in unfamiliar situations? Yes, patient needs extra ti me. PROBLEM SOLVING - SCORE: 6-ROBBY MEMORY: MEMORY - STEP 1: Does the patient need help from a person or device, or need extra time to remember frequently encount ered people, daily routines, and executing requests? No. MEMORY - STEP 2: Does the patient have slight difficulty recognizing frequently encountered people, daily routines, or executing requests without the need for repetition or using self-initiated or environmental cues to remember? Yes. MEMORY - SCORE: 6-ROBBY SIGNATURE PANEL: The following modified sections: Eating - Score, Grooming - Score, Bathing - Score, Dressing - Upper Body - Score, Dressing - Lower Body - Score, Toileting - Score, Transfers: Bed, Chair, Wheelchair - S core, Transfers: Tub - Score, Transfers: Toilet - Score, Transfers: Shower - Score, Comprehension - S core, Expression - Score, Social Interaction - Score, Problem Solving - Score, Memory - Score were [e lectronically] signed by Melissa Shelton OT on MonAug 24 2018 15:48:42 T-0600 (Central Standard T madeleine)
[2018-08-24 22:06] LABS: Albumin, (SPE) 4.1 g/dL (3.8-4.8); Alpha-1-Globulins 0.4 g/dL (0.2-0.3); Alpha-2-Globulins 0.9 g/dL (0.5-0.9); INTERPRETATION REPORT
--- NOTE | 2018-08-26 10:12 | DS ---
Date of Discharge: 08/24/2018 Disposition: Discharged to go home. Physical Examination: See copy of today's progress note dictation. Hospital Course: A 68-year-old male patient who was admitted initially to medical floor, subsequently was brought to rehab floor. After he came to rehab , he started to receive physical therapy under guidance of Dr. Mane. Initially, he was on IV Levaquin for his pneumonia and later on it was changed to oral Levaquin. Chest x-ray was done for followup, routine blood work was done for followup. The patient's ribcage pain improved. He had lot of cough and chest congestion and with his nebulizer treatment and cough medicine it was not getting better, so we had to add Mucinex and subsequently we also added Mucomyst nebulizer treatment and that actually helped significantly to alleviate his cough and congestion completely. He had some constipation problem , which was addressed as well. Originally, he was scheduled to go home on Monday but today, he requested to go home and neurologist, Dr. Mane, approved his discharge, medically he is stable for discharge. Laboratory Data: Labs done during this hospitalization. Last CBC on 08/23/2018 , white count 4.7, hemoglobin 12.5, platelets 356. Sodium 134, potassium 4.1, chloride 99, bicarb 30, BUN 14, creatinine 0.98, glucose 88. Discharge Medications And Instructions: 1. Continue all prior home medications as you were taking prior to this admission except do not take amiodarone. 2. Follow up at my office as per your schedule appointment, which is on September 06, 2018, at 11:15 a.m. 3. Take all of your prior home medications except stop Amiodarone and take new medications as below. a. Abilify 5 mg 1 tablet by mouth p.o. daily. b. Senokot-S 2 tablets by mouth 1 to 2 times a day for constipation and MiraLAX 17 g powder mixed with 8 ounce of water and drink it daily as needed for constipation. Final Diagnoses: 1. Debility. 2. Pneumonia. 3. Constipation. 4. Hypertension. 5. Paroxysmal atrial fibrillation. 6. Stroke. 7. Bioprosthetic aortic valve. 8. Hypertension. 9. Hyperlipidemia. 10. Prostate cancer. 11. Impaired fasting glucose. 12. Gastroesophageal reflux disease. 13. Depression. 14. Hypothyroidism. DAWNA/MODL Voice ID: [id number] Report ID: [id number]
--- NOTE | 2018-08-31 18:44 | FAST ---
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 Daniel Mane M.D. ADMISSION DIAGNOSIS: - Debility 16 - Debility (16) RIGHT 6TH RIB FRCATURE. EATING: Activity did not occur on this shift EATING - SCORE: 0-UNK GROOMING: Comb/brush hair Oral care Wash, rinse, and dry face Wash, rinse, and dry hands GROOMING - STEP 1: Does the patient require the assistance of a person or device, or need extra time when grooming? No. GROOMING - SCORE: 7-IND BATHING: Abdomen Buttocks Chest Left arm Left lower leg and foot Left upper leg Perineal area Right arm Right lower leg and foot Right upper leg BATHING - STEP 1: Does the patient require the assistance of a person or device, or need extra time when bathing? Yes. BATHING - STEP 2: Does the patient require the assistance of a helper? Yes. BATHING - STEP 3: How much assistance does the patient require from the helper? Only incidental help such as placement of a wash cloth in his/her hand a few times as s/he bathes OR help to bathe just one or two areas of the body BATHING - SCORE: 4-MIN DRESSING - UPPER BODY: T-shirt/pullover shirt (four steps) ARTICLES SCORE Total number of steps: 4 DRESSING - UPPER BODY - STEP 1: Does the patient require help from a person or device, or need extra time when dressing above the meek st? Yes. DRESSING - UPPER BODY - STEP 2: Does the patient require the assistance of a helper? Yes. DRESSING - UPPER BODY - STEP 3: Does the helper touch the patient while dressing? Yes. DRESSING - UPPER BODY - STEP 4: How many of the total steps does the patient complete on his/her own? 3 DRESSING - UPPER BODY - SCORE: 4-MIN DRESSING - LOWER BODY: Elastic waist pants (three steps) Sock - Left foot (one step) Sock - Right foot (one step) Tied or buckled shoe - Left foot (two steps) Tied or buckled shoe - Right foot (two steps) Underwear (three steps) ARTICLES SCORE Total number of steps: 12 DRESSING - LOWER BODY - STEP 1: Does the patient require help from a person or device, or need extra time when dressing below the meek st? Yes. DRESSING - LOWER BODY - STEP 2: Does the patient require the assistance of a helper? Yes. DRESSING - LOWER BODY - STEP 3: Does the helper touch the patient while dressing? Yes. DRESSING - LOWER BODY - STEP 4: How many of the total steps does the patient complete on his/her own? 10 DRESSING - LOWER BODY - SCORE: 4-MIN TOILETING: Activity did not occur on this shift TOILETING - SCORE: 0-UNK BLADDER MANAGEMENT: Activity did not occur on this shift BLADDER MANAGEMENT - SCORE: 7-IND BOWEL MANAGEMENT: Activity did not occur on this shift BOWEL MANAGEMENT - SCORE: 7-IND TRANSFERS: BED, CHAIR, WHEELCHAIR: Activity did not occur on this shift TRANSFERS: BED, CHAIR, WHEELCHAIR - SCORE: 0-UNK TRANSFERS: TOILET: Activity did not occur on this shift TRANSFERS: TOILET - SCORE: 0-UNK TRANSFERS: SHOWER: TRANSFERS: SHOWER - STEP 1: Does the patient require the assistance of a person or device, or need extra time with shower transfe rs? Yes. TRANSFERS: SHOWER - STEP 2: Does the patient require the assistance of a helper? Yes. TRANSFERS: SHOWER - STEP 3: How much assistance does the patient require from the helper? Only incidental help such as contact gu arding or steadying during shower transfers, or help to lift one leg into the shower TRANSFERS: SHOWER - SCORE: 4-MIN TRANSFERS: TUB: Activity did not occur on this shift TRANSFERS: TUB - SCORE: 0-UNK LOCOMOTION: WALK: Activity did not occur on this shift LOCOMOTION: WALK - SCORE: 0-UNK LOCOMOTION: WHEELCHAIR: Activity did not occur on this shift LOCOMOTION: WHEELCHAIR - SCORE: 0-UNK LOCOMOTION: STAIRS: Activity did not occur on this shift LOCOMOTION: STAIRS - SCORE: 0-UNK COMPREHENSION: COMPREHENSION: TYPE: Both COMPREHENSION - STEP 1: Does the patient require help from a person or device, or need extra time to understand complex and a bstract ideas (such as current events, finances, discharge planning, medical issues, relationships, e tc)? No. COMPREHENSION - STEP 2: Does the patient need extra time, require an assistive device (such as glasses for visual comprehensi on or a hearing aid for auditory comprehension) or does s/he have mild difficulty understanding compl ex and abstract information? Yes. COMPREHENSION - SCORE: 6-ROBBY EXPRESSION EXPRESSION: TYPE: Both EXPRESSION - STEP 1: Does the patient require help from a person or device, or need extra time expressing complex and abst ract ideas (such as current events, finances, discharge planning, medical issues, relationships, etc) ? Yes. EXPRESSION - STEP 2: Does the patient require help to express basic necessities or ideas (such as hunger, thirst, sleep, s afety, daily schedule, room location, or discomfort) half or more of the time? No. EXPRESSION - STEP 3: How often does the patient need help to express directions and conversation about basic needs? Less t watt 10% of the time EXPRESSION - SCORE: 5-SUP SOCIAL INTERACTION: SOCIAL INTERACTION - STEP 1: Does the patient require a helper to interact with others in social and therapeutic situations? No. SOCIAL INTERACTION - STEP 2: Does the patient need extra time in social situations, OR does s/he interact with staff, other patien ts, and family members ONLY in structured environments, OR does s/he require medication for social in teraction? Yes, patient requires medication for social interaction SOCIAL INTERACTION - SCORE: 6-ROBBY PROBLEM SOLVING: PROBLEM SOLVING - STEP 1: Does the patient need help from a person or device, or need extra time to solve complex problems such as managing a checking account or confronting interpersonal problems? Yes. PROBLEM SOLVING - STEP 2: Does the patient solve basic routine problems half or more of the time? Yes. PROBLEM SOLVING - STEP 3: How often does the patient need help to solve basic routine problems? 10%-24% of the time PROBLEM SOLVING - SCORE: 4-MIN MEMORY: MEMORY - STEP 1: Does the patient need help from a person or device, or need extra time to remember frequently encount ered people, daily routines, and executing requests? Yes. MEMORY - STEP 2: How often does the patient need help to remember frequently encountered people, daily routines, and e xecuting requests? 10% - 24% of the time MEMORY - SCORE: 4-MIN SIGNATURE PANEL: The following modified sections: Eating - Score, Grooming - Score, Bathing - Score, Dressing - Upper Body - Score, Dressing - Lower Body - Score, Toileting - Score, Transfers: Bed, Chair, Wheelchair - S core, Transfers: Toilet - Score, Transfers: Tub - Score, Transfers: Shower - Score, Comprehension - S core, Expression - Score, Social Interaction - Score, Problem Solving - Score, Memory - Score were [e lectronically] signed by Melissa Shelton OT on MonAug 31 2018 18:43:25 GMT-0600 (Central Standard T madeleine)
--- NOTE | 2018-09-04 17:34 | R.DS ---
FACILITY [facility] MR# [id number] [id number] NAME ELSIE RODRIGUEZ ADDRESS [address] [place] [address] PHONE DATE OF 1950 AGE 68 SSN# [id number] GENDER Male DEXTERITY Right-handed MARITAL STATUS RACE White ENCOUNTER PHYSICIAN Dr. Daniel Mane M.D. REFERRING DOCTOR Parker Camacho REFERRING FACILITY [facility] DISCHARGE DIAGNOSIS: - Debility 16 - Debility (16) RIGHT 6TH RIB FRCATURE. DISCHARGE COMORBIDITIES: - N/A CAD Hypertension CVA HYPERLIPIDEMIA PROSTATE CANCER DVT LLE AND MATY OBSTRUCTIVE SLEEP APNEA ATRIAL FIBRILLATION HYPOTHYROIDISM DATE OF ADMISSION 08/08/2018 16:18 (DIAL MOUNTER) MEDICATION ALLERGIES: Sulfa ENVIRONMENTAL ALLERGIES: None Known - Substance Allergies None Known - Other Allergies None Known NURSING: - Shower allowing shower ACTIVITIES OOB only with supervision THERAPIES: - Occupational Therapy Evaluate and Treat - Physical Therapy Evaluate and Treat HISTORY OF PRESENT ILLNESS: Pt. is a 68 yo Right-handed white male.On 08/03/2018 he was admitted to [facility] with diagnosis RIGHT 6TH RIB FRCATURE.His impairment category is Debility 16 - Debility (16).Pre -morbidly, Pt. was independent/mod-I in Self-Care, Sphincter Control, Communication, and Social Cogni tion; and he had good Sphincter Control.Currently, he has deficits of Safety Awareness, Transfers Con trol, Balance, Self-Care, Locomotion, and Endurance.Pt. is now referred to [facility] for acute in-patient rehabilitation in order to maximize patient's functional independence in activities of daily living, strength, ROM, and mobility.- Rehab Goal Patient has realistic goal of being discharged at assistance level 6-Henny to reside at Home with Fam liana/Relatives. Elsie Rodriguez is a 67 year old male that lives in a single samara home with his son. Patient requires assistance from his son on ADLs from his previous stroke. On 08/03/2018, he had SOB and was admitted to [facility] and treated. He is now medically stable but in need of 24-hour nursing, doctor supervision and oversite participate in 3hours of therapy a day/15 hours per week and receive care with an intensive interdisciplinary approach.HOSPITAL COURSE: DIET - LIQUID TEXTURE: On 08/08/2018 Pt was upgraded to Regular Diet - Liquid Texture. DIET - SOLID TEXTURE: On 08/08/2018 Pt was upgraded to Regular Diet - Solid Texture. DIET TYPE: On 08/08/2018 Pt was changed to Heart Healthy Diet Type. TUBE FEED: On 08/08/2018 Pt was changed to N/A Tube Feed. DISCHARGE PHYSICAL EXAM - Gen Alert and awake Lying in bed No apparent distress Oriented to: person, time, and place - Skin No breakdown No abnormalities - Eyes No abnormalities - ENMT No abnormalities - Neck No abnormalities - CVS RRR - Chest No abnormalities - Resp Clear to auscultation - Abd + bowel sounds - GI Soft Deferred - No abnormalities - Ext Mild bilateral lower extremity edema. - MSK 4+/5 weakness in both lower extremities. - Neuro No focal deficits - Psych No abnormalities FUNCTIONAL STATUS: - Self-Care A. Eating 5-sup 7-Ind B. Grooming 6-Henny 7-Ind C. Bathing 4-Ruddy 4-Ruddy D. Dressing - Upper 4-Ruddy 5-sup E. Dressing - Lower 4-Ruddy 5-sup F. Toileting 3-modA 5-sup - Sphincter Control G: Bladder control 7-Ind 7-Ind H: Bowel control 7-Ind 7-Ind - Transfers Control I. Bed/Chair/Wheelchair 2-maxA 5-sup J. Toilet 2-maxA 5-sup K. Tub/Shower 0-ADNO 5-sup - Locomotion L. Walk/Wheelchair (C) 3-modA 6-Henny L. Walk/Wheelchair (W) 3-modA 4-Ruddy M. Stairs 0-ADNO 4-Ruddy - Communication N. Comprehension (B) 7-Ind 7-Ind O. Expression (B) 7-Ind 7-Ind - Social Cognition P. Social Interaction 7-Ind 7-Ind Q. Problem Solving 7-Ind 7-Ind R. Memory 7-Ind 7-Ind - Endurance Fair - Balance Fair - Safety Awareness Fair DISCHARGE INSTRUCTIONS: - N/A Lovenox 40 mg sq daily. DISCHARGE PLAN, FOLLOW UP CARE PROVISIONS: - Estimated Length of Stay (days) 13. - Consensus on plan Discharge plan has been discussed with primary caregiver. Patient/Family is in agreement with the bebo n. Primary caregiver is in agreement with the plan. - Patient/Family Goals Return home with assistance. - Planned Living Setting Upon Discharge Home, to live with Family/Relatives. SIGNATURE PANEL: (DIAL MOUNTER)
== END 2018-08-24 16:00 | disposition home or self-care (01) | DRG 559 ==
LOC: 5TH 16:18
PROVIDERS: ADMIT Internal Medicine; ATTEND Internal Medicine
DX: S22.31XD Fracture of one rib, right side, subsequent encounter for fracture with routine healing (principal); J18.9 Pneumonia, unspecified organism; I69.351 Hemiplegia and hemiparesis following cerebral infarction affecting right dominant side; R53.81 Other malaise; K59.00 Constipation, unspecified; I48.0 Paroxysmal atrial fibrillation; I25.10 Atherosclerotic heart disease of native coronary artery without angina pectoris; E03.9 Hypothyroidism, unspecified; G47.33 Obstructive sleep apnea (adult) (pediatric); I10 Essential (primary) hypertension; E78.5 Hyperlipidemia, unspecified; Z85.46 Personal history of malignant neoplasm of prostate; Z86.718 Personal history of other venous thrombosis and embolism; Z95.2 Presence of prosthetic heart valve; R73.01 Impaired fasting glucose; F32.9 Major depressive disorder, single episode, unspecified
CPT/HCPCS: 36415; 71046; 80048; 82040; 83735; 84134; 84165; 85025; 87040; 92507; 92523; 92610; 94640; 94667; 94668; 97110; 97112; 97116; 97162; 97167; 97530; 97542; J1650

== ENCOUNTER 2018-09-07 11:04 | Inpatient (IN) | payer OTHER, BC ==
--- OUTSIDE RECORDS SUMMARY | 2018-09-07 11:08 | XMS REPORT | Clinical Summary ---
:1950 Author Organization [facility] Address [address] [place] [address] Care Team Providers Name Role Phone Drew Stewart MD Primary Care Provider Allergies Active Allergy Reactions Severity Noted Date Comments Sulfa (Sulfonamide Antibiotics) Rash Low 08/15/2017 Medications Medication Sig Dispensed Refills Start End Status Date Date warfarin (COUMADIN) 3 , 30 tablet 1 11/18/19 Active MG tablet 18 019 simvastatin (ZOCOR) 20 11 12/15/19 Active MG tablet 18 aspirin (ECOTRIN) 81 MG Take 81 mg by 0 Active enteric coated tablet mouth daily. escitalopram (LEXAPRO) Take 20 mg by 0 Active 20 MG tablet mouth daily. ramipril (ALTACE) 10 MG Take 10 mg by 0 Active capsule mouth 3 (three) times a day. hydroCHLOROthiazide 2 01/16/20 Active (HYDRODIURIL) 12.5 MG 18 tablet amLODIPine (NORVASC) 5 2 01/16/20 Active mg tablet 18 baclofen (LIORESAL) 10 Take 1 tablet 90 tablet 2 08/31/19 Active MG tablet (10 mg total) 19 019 by mouth 3 (three) times a day for 90 days. ALPRAZolam (XANAX) 0.25 Take 0.25 mg by 0 Discontinued MG tablet mouth 2 (two) 018 times a day as needed for anxiety. ramipril (ALTACE) 10 MG Take 10 mg by 0 Discontinued capsule mouth 2 (two) 018 times a day. amLODIPine (NORVASC) 5 Take 5 mg by 0 Discontinued mg tablet mouth 2 (two) 018 times a day. aspirin (ECOTRIN) 81 MG Take 81 mg by 0 Discontinued enteric coated tablet mouth daily. 018 doxazosin (CARDURA) 1 Take 1 mg by 0 Discontinued MG tablet mouth 2 (two) 018 times a day. escitalopram (LEXAPRO) Take 20 mg by 0 Discontinued 20 MG tablet mouth nightly. 018 ezetimibe (ZETIA) 10 mg Take 10 mg by 0 Discontinued tablet mouth daily. 018 cyanocobalamin 100 MCG Take 100 mcg by 0 Discontinued tablet mouth daily. 018 esomeprazole (NexIUM Take 20 mg by 0 Discontinued 24HR) 20 MG capsule mouth daily 018 before breakfast. doxazosin (CARDURA) 1 Take 1 tablet 60 tablet 0 09/07/19 MG tablet (1 mg total) by 18 018 mouth 2 (two) times a day for 30 days. acetaminophen (TYLENOL) Take 2 tablets 0 09/07/19 325 MG tablet (650 mg total) 18 018 by mouth every 6 (six) hours as needed for fever (GREATER than 100.4) for up to 30 days. acetaminophen (TYLENOL) Take 20.3 mL 0 09/07/19 650 mg/20.3 mL solution (650 mg total) 18 018 by mouth every 6 (six) hours as needed (GREATER than 100.4) for up to 30 days. acetaminophen (TYLENOL) Insert 1 0 09/07/19 650 MG suppository suppository 18 018 (650 mg total) into the rectum every 6 (six) hours as needed for fever (GREATER than 100.4) for up to 30 days. amIODarone (PACERONE) Take 1 tablet 60 tablet 0 09/07/19 200 MG tablet (200 mg total) 18 018 by mouth 2 (two) times a day for 30 days. ipratropium (ATROVENT) Take 2.5 mL 75 mL 0 09/07/19 0.02 % nebulizer (0.5 mg total) 18 018 solution by nebulization 2 (two) times a day for 30 days. ondansetron ODT Take 1 tablet 0 09/07/19 (ZOFRAN-ODT) 4 MG (4 mg total) by 18 018 disintegrating tablet mouth every 8 (eight) hours as needed for nausea or vomiting for up to 30 days. ondansetron (ZOFRAN) 4 Infuse 2 mL (4 20 mL 0 09/07/19 mg/2 mL injection mg total) into 18 018 a venous catheter every 8 (eight) hours as needed for nausea or vomiting for up to 30 days. simvastatin (ZOCOR) 20 Take 1 tablet 30 tablet 0 09/07/19 MG tablet (20 mg total) 18 018 by mouth nightly for 30 days. ramipril (ALTACE) 10 MG Take 1 capsule 60 capsule 0 09/07/19 capsule (10 mg total) 18 018 by mouth 2 (two) times a day for 30 days. QUEtiapine (SEROquel) Take 1 tablet 60 tablet 0 09/07/19 50 MG tablet (50 mg total) 18 018 by mouth 2 (two) times a day for 30 days. metoprolol tartrate Take 1 tablet 60 tablet 0 09/07/192 (LOPRESSOR) 100 mg (100 mg total) 18 018 tablet by mouth 2 (two) times a day for 30 days. amLODIPine (NORVASC) 5 Take 1 tablet 60 tablet 0 09/07/192 mg tablet (5 mg total) by 18 018 mouth 2 (two) times a day for 30 days. HEPARIN SOD,PORK IN Infuse 1,900 500 mL 0 09/07/19 0.45% NACL (HEPARIN, Units/hr into a 18 018 PORCINE, IN 0.45% NACL) venous catheter 25,000 unit/500 mL Titrated for 30 infusion days. ramelteon (ROZEREM) 8 Take 1 tablet 30 tablet 0 09/07/19 mg tablet (8 mg total) by 18 018 mouth nightly for 30 days. insulin lispro Inject 0-7 10 mL 12 09/07/19 (HumaLOG) 100 unit/mL Units under the 18 018 injection skin every 4 (four) hours for 30 days. dextrose 50% syringe Infuse 25 mL 0 09/07/19 Discontinued (12.5 g total) 18 018 into a venous catheter as needed (If blood glucose is 40 mg/dL or LESS). dextrose 10 % infusion Infuse 40 mL/hr 500 mL 0 09/07/19 into a venous 18 018 catheter continuously as needed (bedside glucose LESS than 70 mg/dL) for up to 30 days. docusate (COLACE) 50 Take 10 mL (100 0 09/07/19 mg/5 mL liquid mg total) by 18 018 mouth 2 (two) times a day for 30 days. polyethylene glycol Take 17 g by 30 packet 0 09/08/19 Discontinued (MIRALAX) 17 gram mouth daily for 18 018 packet 30 days. bisacodyl (DULCOLAX) 10 Insert 1 0 09/07/19 mg suppository suppository (10 18 018 mg total) into the rectum daily as needed for constipation for up to 30 days. ezetimibe (ZETIA) 10 mg Take 1 tablet 30 tablet 0 09/08/19 Discontinued tablet (10 mg total) 18 018 by mouth daily for 30 days. furosemide (LASIX) 10 Infuse 4 mL (40 120 mL 0 09/08/19 Discontinued mg/mL injection mg total) into 18 018 a venous catheter daily for 30 days. acetylcysteine Take 4 mL by 0 09/07/19 (MUCOMYST) 200 mg/mL nebulization 2 18 018 (20 %) nebulizer (two) times a solution day for 30 days. HYDROcodone-acetaminoph Take 1 tablet 0 09/07/19 en (NORCO) 5-325 mg per by mouth every 18 018 tablet 6 (six) hours as needed for moderate pain for up to 10 days. Max Daily Amount: 4 tablets fluticasone (FLONASE) 2 sprays (100 15.8 mL 0 09/07/19 50 mcg/actuation nasal mcg total) by 18 018 spray Each Nare route 2 (two) times a day for 30 days. aspirin 81 mg chewable Chew 1 tablet 30 tablet 0 09/08/19 Discontinued tablet (81 mg total) 18 018 daily for 30 days. potassium chloride Take 1 capsule 30 capsule 0 09/08/19 Discontinued (MICRO-K) 10 MEQ CR (10 mEq total) 18 018 capsule by mouth daily for 30 days. omeprazole (PRILOSEC) 2 Take 10 mL (20 600 mL 0 09/07/19 mg/mL oral suspension mg total) by 18 018 mouth 2 (two) times a day for 30 days. escitalopram (LEXAPRO) Take 1 tablet 30 tablet 0 09/07/19 20 MG tablet (20 mg total) 18 018 by mouth nightly for 30 days. sodium chloride 0.9 % Infuse 30 mL/hr 100 mL 0 09/07/19 solution into a venous 18 018 catheter continuously for 30 days. doxazosin (CARDURA) 1 Take 1 tablet 60 tablet 0 09/19/19 Discontinued MG tablet (1 mg total) by 18 018 mouth 2 (two) times a day for 30 days. acetaminophen (TYLENOL) Take 2 tablets 0 09/19/19 Discontinued 325 MG tablet (650 mg total) 18 018 by mouth every 6 (six) hours as needed for fever (GREATER than 100.4) for up to 30 days. acetaminophen (TYLENOL) 20.3 mL (650 mg 0 09/19/19 Discontinued 650 mg/20.3 mL solution total) by 18 018 feeding tube route every 6 (six) hours as needed (GREATER than 100.4) for up to 30 days. acetaminophen (TYLENOL) Insert 1 0 09/19/19 Discontinued 650 MG suppository suppository 18 018 (650 mg total) into the rectum every 6 (six) hours as needed for fever (GREATER than 100.4) for up to 30 days. amIODarone (PACERONE) Take 1 tablet 60 tablet 0 09/19/19 Discontinued 200 MG tablet (200 mg total) 18 018 by mouth 2 (two) times a day for 30 days. warfarin (COUMADIN) 2.5 Take 1 tablet 0 09/19/19 Discontinued MG tablet (2.5 mg total) 18 018 by mouth daily. simvastatin (ZOCOR) 20 Take 1 tablet 30 tablet 0 09/19/19 Discontinued MG tablet (20 mg total) 18 018 by mouth nightly for 30 days. ramipril (ALTACE) 10 MG Take 1 capsule 60 capsule 0 09/19/19 Discontinued capsule (10 mg total) 18 018 by mouth 2 (two) times a day for 30 days. hydrALAZINE Infuse 0.5 mL 1 mL 0 09/19/19 Discontinued (APRESOLINE) 20 mg/mL (10 mg total) 18 018 injection into a venous catheter every 6 (six) hours as needed for high blood pressure for up to 30 days. QUEtiapine (SEROquel) Take 1 tablet 30 tablet 0 09/19/19 Discontinued 25 MG tablet (25 mg total) 18 018 by mouth nightly for 30 days. metoprolol tartrate 1 tablet (50 mg 60 tablet 0 09/20/19 Discontinued (LOPRESSOR) 50 mg total) by 18 018 tablet feeding tube route 2 (two) times a day for 30 days. amLODIPine (NORVASC) 5 1 tablet (5 mg 60 tablet 0 09/19/19 Discontinued mg tablet total) by 18 018 feeding tube route 2 (two) times a day for 30 days. ramelteon (ROZEREM) 8 Take 1 tablet 30 tablet 0 09/19/19 Discontinued mg tablet (8 mg total) by 18 018 mouth nightly for 30 days. docusate (COLACE) 50 Take 10 mL (100 0 09/19/19 Discontinued mg/5 mL liquid mg total) by 18 018 mouth 2 (two) times a day for 30 days. polyethylene glycol Take 17 g by 30 packet 0 09/20/19 Discontinued (MIRALAX) 17 gram mouth daily for 18 018 packet 30 days. ezetimibe (ZETIA) 10 mg Take 1 tablet 30 tablet 0 09/20/19 Discontinued tablet (10 mg total) 18 018 by mouth daily for 30 days. HYDROcodone-acetaminoph Take 20 mL by 0 09/19/19 Discontinued en (HYCET) 2.5-108.3 mouth every 4 18 018 mg/5 mL solution (four) hours as needed for moderate pain for up to 20 days. Max Daily Amount: 120 mL HYDROcodone-acetaminoph 1 tablet by 0 09/19/19 Discontinued en (NORCO) 5-325 mg per feeding tube 18 018 tablet route every 6 (six) hours as needed for moderate pain for up to 20 days. Max Daily Amount: 4 tablets aspirin 81 mg chewable Chew 1 tablet 30 tablet 0 09/20/19 Discontinued tablet (81 mg total) 18 018 daily for 30 days. potassium chloride Take 7.5 mL (10 225 mL 0 09/20/19 Discontinued (KAYCIEL) 20 mEq/15 mL mEq total) by 18 018 solution mouth daily for 30 days. omeprazole (PRILOSEC) 2 Take 10 mL (20 600 mL 0 09/19/19 Discontinued mg/mL oral suspension mg total) by 18 018 mouth 2 (two) times a day for 30 days. escitalopram (LEXAPRO) Take 1 tablet 30 tablet 0 09/19/19 Discontinued 20 MG tablet (20 mg total) 18 018 by mouth nightly for 30 days. cyanocobalamin (VITAMIN Take 1 tablet 30 tablet 0 09/19/19 Discontinued B-12) 1000 MCG tablet (1,000 mcg 18 018 total) by mouth daily for 30 days. amIODarone (PACERONE) Take 1 tablet 30 tablet 0 11/18/19 200 MG tablet (200 mg total) 18 018 by mouth daily for 30 days. aspirin 81 mg chewable Chew 1 tablet 30 tablet 0 11/18/19 tablet (81 mg total) 18 018 daily for 30 days. baclofen (LIORESAL) 10 Take 1 tablet 90 tablet 0 11/18/19 Discontinued MG tablet (10 mg total) 18 018 by mouth every 8 (eight) hours for 30 days. docusate sodium Take 1 capsule 30 capsule 0 11/18/19 (COLACE) 100 MG capsule (100 mg total) 18 018 by mouth daily for 30 days. doxazosin (CARDURA) 1 Take 1 tablet 30 tablet 0 11/18/19 MG tablet (1 mg total) by 18 018 mouth daily for 30 days. escitalopram (LEXAPRO) Take 1 tablet 30 tablet 0 11/18/19 20 MG tablet (20 mg total) 18 018 by mouth every evening for 30 days. ezetimibe (ZETIA) 10 mg Take 1 tablet 30 tablet 0 11/18/19 tablet (10 mg total) 18 018 by mouth nightly for 30 days. furosemide (LASIX) 20 Take 1 tablet 30 tablet 0 11/18/19 mg tablet (20 mg total) 18 018 by mouth daily for 30 days. metoprolol tartrate 0.5 tablets 30 tablet 0 11/18/19 Discontinued (LOPRESSOR) 25 mg (12.5 mg total) 18 018 tablet by feeding tube route every 12 (twelve) hours for 30 days. oxybutynin (DITROPAN) 5 Take 0.5 30 tablet 0 11/18/19 MG tablet tablets (2.5 mg 18 018 total) by mouth 2 (two) times a day for 30 days. ramipril (ALTACE) 10 MG Take 1 capsule 30 capsule 0 11/18/19 capsule (10 mg total) 18 018 by mouth daily for 30 days. simvastatin (ZOCOR) 20 Take 1 tablet 30 tablet 0 11/18/19 Discontinued MG tablet (20 mg total) 18 018 by mouth nightly for 30 days. baclofen (LIORESAL) 10 Take 1 tablet 90 tablet 3 12/14/19 MG tablet (10 mg total) 18 018 by mouth every 8 (eight) hours for 30 days. amIODarone (PACERONE) Take 200 mg by 0 Discontinued 200 MG tablet mouth daily. 018 doxazosin (CARDURA) 1 Take 1 mg by 0 Discontinued MG tablet mouth nightly. 018 baclofen (LIORESAL) 10 2 03/12/20 Discontinued MG tablet 18 019 Active Problems Problem Noted Date Late effect of stroke 12/13/2017 Right spastic hemiparesis 12/13/2017 BOUBACAR (obstructive sleep apnea) 12/13/2017 Right foot drop 12/13/2017 Spasticity 12/13/2017 Aphasia as late effect of cerebrovascular accident 11/16/2017 Neurogenic bladder 11/16/2017 CVA (cerebral vascular accident) 10/09/2017 Internal jugular vein thrombosis, right 08/31/2017 Encephalopathy, improving 08/30/2017 Anemia due to blood loss 08/30/2017 Acute ischemic thalamic stroke, left 08/19/2017 Overview: 2008 [place] WITH CAROTID ENDARTERECTOMY Mild protein-calorie malnutrition 08/19/2017 S/P AVR 08/17/2017 Coronary artery disease involving solomon coronary artery of solomon heart 08/17 without angina pectoris Post-op pain 08/17/2017 Acute postoperative pulmonary insufficiency, Ventilator dependent, post 2017 tracheostomy Resolved Problems Problem Noted Date Resolved Date Citrobacter tracheobronchitis 08/30/2017 09/18/2017 Aortic stenosis 08/15/2017 09/18/2017 Encounters Date Type Specialty Care Team Description 08/31/2018 Refill Physical Medicine and Cas[place], Rehabilitation ANDREA Bhardwaj 07/04/2018 Clinical Support Physical Medicine and Telma Hurt Right spastic hemiparesis (HCC) (Primary Dx); Rehabilitation MD BOUBACAR Devries (obstructive sleep apnea); Aphasia as late effect of cerebrovascular accident; Spasticity; Neurogenic bladder; Right foot drop; Late effect of stroke 04/03/2018 Clinical Support Physical Medicine and Telma Hurt Right spastic hemiparesis (Primary Dx); Rehabilitation MD BOUBACAR Devries (obstructive sleep apnea); Aphasia as late effect of cerebrovascular accident; Spasticity; Neurogenic bladder; Late effect of stroke; Right foot drop 01/23/2018 Office Visit Physical Medicine and Telma Hurt (obstructive sleep apnea) (Primary Dx); Rehabilitation MD Kayce Right spastic hemiparesis; Spasticity; Late effect of stroke; Right foot drop; Neurogenic bladder; Aphasia as late effect of cerebrovascular accident 12/26/2017 Clinical Support Physical Medicine and Telma Hurt Right spastic hemiparesis (Primary Dx); Rehabilitation MD BOUBACAR Devries (obstructive sleep apnea); Spasticity; Late effect of stroke; Right foot drop; Neurogenic bladder; Aphasia as late effect of cerebrovascular accident 12/13/2017 Office Visit Physical Medicine and Telma Hurt Late effect of stroke (Primary Dx); Rehabilitation MD Kayce Right spastic hemiparesis; Aphasia as late effect of cerebrovascular accident; BOUBACAR (obstructive sleep apnea); Right foot drop; Spasticity; Neurogenic bladder 10/09/2017 - Hospital Rehabilitation LitzyvanesaSamina lei Right hemiparesis ( Primary Dx); 11/17/2017 Encounter MD Rina Aphasia as late effect of cerebrovascular accident; Neurogenic bladder; Cerebrovascular accident (CVA), unspecified mechanism; Coronary artery disease involving solomon coronary artery of solomon heart without angina pectoris 09/18/2017 Orders Only Procedural Cardiology Layne Poe 08/17/2017 - Hospital Cardiac Intensive [place], Acute postoperative pulmonary insufficiency (Primary Dx); 09/19/2017 Encounter Care Alley Devries MD S/P AVR; Coronary artery disease involving solomon coronary artery of solomon heart without angina pectoris after 09/06/2017 Immunizations Name Dates Previously Given Next Due [...] Assigned at Date Recorded Not on file Job Start Date Occupation Industry Not on file Not on file Not on file Travel History Travel Start Travel End No recent travel history available. Last Filed Vital Signs Vital Sign Reading Time Taken Blood Pressure 100/77 07/04/2018 1:39 PM [facility]NAMEL [facility] Pulse 64 07/04/2018 1:39 PM [facility]NAM[facility] Temperature 36.3 C (97.4 F) 11/17/2017 11:25 AM CDT Respiratory Rate 16 11/17/2017 11:25 AM CDT Oxygen Saturation 99% 11/17/2017 11:25 AM CDT Inhaled Oxygen Concentration - - Weight 77.3 kg (170 lb 6.4 oz) 11/17/2017 4:56 AM CDT Height 172.7 cm (5' 8") 10/09/2017 8:11 PM [facility]NAM[facility] Body Mass Index 25.91 11/17/2017 4:56 AM CDT Plan of Treatment Date Type Specialty Care Team Description 10/05/2018 Clinical Support Physical Medicine and HurtTelma MD Rehabilitation [address] [facility] [address] [place] [id number] Health Maintenance Due Date Last Done Comments SHINGLES VACCINES (1 of 2) 1999 PNEUMOCOCCAL POLYSACCHARIDE VACCINE AGE 65 2014 AND OVER INFLUENZA VACCINE 03/07/2018 09/07/2017, 08/24/2017 COLON CANCER SCREENING 09/09/2027 09/09/2017 PNEUMOCOCCAL-13 Completed 09/07/2017 Implants Implanted Type Area Soft Crab Shedder Device Shelf Model / Identifier Expiration Serial / Date Lot Valve Aortic Hemo Peric Tiss W/[place] Tech Cuff 23mm Trifecta - [id number] - [id number] Cardiovascular N/A: [facility] 02/12/2021 TFGT 23A / Implanted: Qty: 1 on 08/17/2017 by Alley San MD Implants Heart STRUCTURAL [id number] / HEART [id number] Clip Ligtng Weck Hemoclip Plus W/ Tape Ti Med - [id number] Medical Clips for N /A: N/A TELEFLEX [id number] / Implanted: 08/17/2017 (Quantity not on file) Internal Use MEDICAL / Clip Ligtng Weck Hemoclip Plus W/ Tape Ti Sm Strngpnt - [id number] Medical Clips for N/A: N/A WECK CLOSURE [id number] / Implanted: 08/17/2017 (Quantity not on file) Internal Use SYSTEMS / Clip Ligtng Weck Hemoclip Plus W/ Tape Ti Med - [id number] Medical Clips for N /A: N/A TELEFLEX [id number] / Implanted: 08/24/2017 (Quantity not on file) Internal Use MEDICAL / Patch Biosurg Selnt Fibrin Absrbl 9.5x4.8cm Tachosil - [id number] Surgical N/A : N/A JACK [id number] / Implanted: 08/17/2017 (Quantity not on file) Implants; BIOSCIENCE / Expanders; Extenders; Surgical Wires Patch Biosurg Selnt Fibrin Absrbl 9.5x4.8cm Tachosil - [id number] Surgical N/A : N/A JACK [id number] / Implanted: 08/17/2017 (Quantity not on file) Implants; BIOSCIENCE / Expanders; Extenders; Surgical Wires Patch Biosurg Selnt Fibrin Absrbl 9.5x4.8cm Tachosil - [id number] Surgical N/A : N/A JACK [id number] / Implanted: 08/17/2017 (Quantity not on file) Implants; BIOSCIENCE / Expanders; Extenders; Surgical Wires [place] Perph Vasclr Ptfe 1.2x10cm 1.65mm - [id number] Vascular Graft N/A: N/A BARD PERIPHERAL 02/01/2022 [id number] / Implanted: 08/17/2017 (Quantity not on file) VASCULAR / [id number] [place] Perph Vasclr Ptfe 1.2x10cm 1.65mm - [id number] Vascular Graft N/A: N/A BARD PERIPHERAL 06/03/2022 [id number] / Implanted: 08/17/2017 (Quantity not on file) VASCULAR / [id number] Explanted Type Area Soft Crab Shedder Device Shelf Model / Identifier Expiration Serial / Date Lot Lead Pace Galileo Mycrdl Unipol Tmpry Streamline - [id number] Cardiovascular N/A : [employer] [place] - [id number] / Implanted: 08/17/2017 (Quantity not on file) Implants N/A CARDIAC SRGRY / Lead Pace Galileo Mycrdl Unipol Tmpry Streamline - [id number] Cardiovascular N/A : [employer] [place] - [id number] / Implanted: 08/17/2017 (Quantity not on file) Implants N/A CARDIAC SRGRY / Procedures Procedure Name Priority Date/Time Associated Diagnosis Comments ID NEEDLE EMG GUIDANCE Routine 07/04/2018 1:15 Right spastic Results for this FOR CHEMODENERVATION PM ENAMEL BURNER hemiparesis (HCC) procedure are in the results section. ID CHEMODENERVATION 1 Routine 07/04/2018 1:15 Right spastic Results for this EXTREMITY 5 OR MORE PM ENAMEL BURNER hemiparesis (HCC) procedure are in MUSCLES the results section. ID NEEDLE EMG GUIDANCE Routine 04/03/2018 1:00 Right spastic Results for this FOR CHEMODENERVATION PM CDT hemiparesis procedure are in the results section. ID CHEMODENERVATION 1 Routine 04/03/2018 1:00 Right spastic Results for this EXTREMITY 5 OR MORE PM CDT hemiparesis procedure are in MUSCLES the results section. ID NEEDLE EMG GUIDANCE Routine 12/26/2017 1:15 Right spastic Results for this FOR CHEMODENERVATION PM CDT hemiparesis procedure are in the results section. ID CHEMODENERVATION ONE Routine 12/26/2017 1:15 Right spastic Results for this EXTREMITY 1-4 MUSCLE PM CDT hemiparesis procedure are in the results section. PROTHROMBIN TIME WITH Routine 11/16/2017 4:20 Results for this INR AM CDT procedure are in the results section. POC GLUCOSE Routine 11/13/2017 5:04 Results for this PM CDT procedure are in the results section. PROTHROMBIN TIME WITH Routine 11/13/2017 4:39 Results for this INR AM CDT procedure are in the results section. POC GLUCOSE Routine 11/10/2017 7:17 Results for this AM CDT procedure are in the results section. POC GLUCOSE Routine 11/09/2017 8:48 Results for this PM CDT procedure are in the results section. PROTHROMBIN TIME WITH Routine 11/09/2017 5:00 Results for this INR AM CDT procedure are in the results section. PROTHROMBIN TIME WITH Routine 11/06/2017 4:20 Results for this INR AM CDT procedure are in the results section. PROTHROMBIN TIME WITH Routine 11/02/2017 6:15 Results for this INR AM CDT procedure are in the results section. HC COMPLETE BLD COUNT Routine 11/01/2017 5:05 Results for this W/AUTO DIFF PM CDT procedure are in the results section. ZZESTIMATED GFR Routine 11/01/2017 1:11 Results for this PM CDT procedure are in the results section. BASIC METABOLIC PANEL Routine 11/01/2017 1:11 Results for this PM CDT procedure are in the results section. POC GLUCOSE Routine 11/01/2017 11:14 Results for this AM CDT procedure are in the results section. PROTHROMBIN TIME WITH Routine 10/30/2017 5:48 Results for this INR AM CDT procedure are in the results section. PROTHROMBIN TIME WITH Routine 10/26/2017 5:05 Results for this INR AM CDT procedure are in the results section. PROTHROMBIN TIME WITH Routine 10/24/2017 5:05 Results for this INR AM CDT procedure are in the results section. PROTHROMBIN TIME WITH Routine 10/23/2017 3:45 Results for this INR AM CDT procedure are in the results section. XR CHEST 1 VW PORTABLE Routine 10/22/2017 8:36 Results for this AM CDT procedure are in the results section. CBC HEMOGRAM Routine 10/22/2017 5:00 Results for this AM CDT procedure are in the results section. PROTHROMBIN TIME WITH Routine 10/22/2017 5:00 Results for this INR AM CDT procedure are in the results section. PROTHROMBIN TIME WITH Routine 10/21/2017 5:55 Results for this INR AM CDT procedure are in the results section. PROTHROMBIN TIME WITH Routine 10/19/2017 7:34 Results for this INR AM CDT procedure are in the results section. PROTHROMBIN TIME WITH Routine 10/17/2017 5:30 Results for this INR AM CDT procedure are in the results section. PROTHROMBIN TIME WITH Routine 10/16/2017 5:30 Results for this INR AM CDT procedure are in the results section. HC COMPLETE BLD COUNT Routine 10/15/2017 7:04 Results for this W/AUTO DIFF AM CDT procedure are in the results section. PROTHROMBIN TIME WITH Routine 10/15/2017 7:04 Results for this INR AM CDT procedure are in the results section. ZZESTIMATED GFR Routine 10/15/2017 4:00 Results for this AM CDT procedure are in the results section. MAGNESIUM LEVEL Routine 10/15/2017 4:00 Results for this AM CDT procedure are in the results section. BASIC METABOLIC PANEL Routine 10/15/2017 4:00 Results for this AM CDT procedure are in the results section. PROTHROMBIN TIME WITH Routine 10/14/2017 6:53 Results for this INR AM ENAMEL BURNER procedure are in the results section. PROTHROMBIN TIME WITH Routine 10/13/2017 5:20 Results for this INR AM ENAMEL BURNER procedure are in the results section. PROTHROMBIN TIME WITH Routine 10/12/2017 4:40 Results for this INR AM ENAMEL BURNER procedure are in the results section. FL MODIFIED BARIUM Routine 10/11/2017 2:42 Results for this SWALLOW PM ENAMEL BURNER procedure are in the results section. ZZESTIMATED GFR Routine 10/11/2017 5:15 Results for this AM ENAMEL BURNER procedure are in the results section. PROTHROMBIN TIME WITH Routine 10/11/2017 5:15 Results for this INR AM ENAMEL BURNER procedure are in the results section. BASIC METABOLIC PANEL Routine 10/11/2017 5:15 Results for this AM ENAMEL BURNER procedure are in the results section. HC COMPLETE BLD COUNT Routine 10/11/2017 5:15 Results for this W/AUTO DIFF AM ENAMEL BURNER procedure are in the results section. URINALYSIS, AUTOMATED Routine 10/10/2017 5:40 Results for this WITH MICROSCOPY AM ENAMEL BURNER procedure are in the results section. ZZESTIMATED GFR Routine 10/10/2017 5:35 Results for this AM ENAMEL BURNER procedure are in the results section. PROTHROMBIN TIME WITH Routine 10/10/2017 5:35 Results for this INR [facility] procedure are in the results section. HC COMPLETE BLD COUNT Routine 10/10/2017 5:35 Results for this W/AUTO DIFF [facility] procedure are in the results section. BASIC METABOLIC PANEL Routine 10/10/2017 5:35 Results for this [facility] procedure are in the results section. POC GLUCOSE Routine 09/19/2017 4:18 Results for this PM [facility] procedure are in the results section. PROTHROMBIN TIME WITH STAT 09/19/2017 1:17 Results for this INR [facility] procedure are in the results section. POC GLUCOSE Routine 09/19/2017 12:28 Results for this [facility] procedure are in the results section. POC GLUCOSE Routine 09/19/2017 7:30 Results for this [facility] procedure are in the results section. POC GLUCOSE Routine 09/19/2017 6:02 Results for this [facility] procedure are in the results section. ZZESTIMATED GFR Routine 09/19/2017 1:15 Results for this [facility] procedure are in the results section. CBC HEMOGRAM Routine 09/19/2017 1:15 Results for this [facility] procedure are in the results section. BASIC METABOLIC PANEL Routine 09/19/2017 1:15 Results for this [facility] procedure are in the results section. MAGNESIUM LEVEL Routine 09/19/2017 1:15 Results for this [facility] procedure are in the results section. ZINC LEVEL, SERUM Routine 09/19/2017 1:15 Results for this [facility] procedure are in the results section. VITAMIN D 25 HYDROXY Routine 09/19/2017 1:15 Results for this LEVEL [facility] procedure are in the results section. VITAMIN C LEVEL, PLASMA Routine 09/19/2017 1:15 Results for this [facility] procedure are in the results section. POC GLUCOSE Routine 09/18/2017 11:39 Results for this [facility] procedure are in the results section. POC GLUCOSE Routine 09/18/2017 7:42 Results for this [facility] procedure are in the results section. POC GLUCOSE Routine 09/18/2017 4:09 Results for this [facility] procedure are in the results section. PHOSPHORUS LEVEL STAT 09/18/2017 3:56 Results for this [facility] procedure are in the results section. MAGNESIUM LEVEL STAT 09/18/2017 3:56 Results for this [facility] procedure are in the results section. POTASSIUM LEVEL STAT 09/18/2017 3:56 Results for this [facility] procedure are in the results section. IONIZED CALCIUM STAT 09/18/2017 3:56 Results for this [facility] procedure are in the results section. POC GLUCOSE Routine 09/18/2017 12:28 Results for this [facility] procedure are in the results section. US DUPLEX VENOUS LOWER STAT 09/18/2017 12:27 Results for this EXTREMITY BILATERAL PM [facility] procedure are in the results section. POC GLUCOSE Routine 09/18/2017 8:07 Results for this [facility] procedure are in the results section. XR CHEST 1 VW PORTABLE Routine 09/18/2017 5:37 Results for this [facility] procedure are in the results section. POC GLUCOSE Routine 09/18/2017 3:56 Results for this [facility] procedure are in the results section. ZZESTIMATED GFR Routine 09/18/2017 3:16 Results for this [facility] procedure are in the results section. BASIC METABOLIC PANEL Routine 09/18/2017 3:16 Results for this [facility] procedure are in the results section. MAGNESIUM LEVEL Routine 09/18/2017 3:16 Results for this [facility] procedure are in the results section. CBC HEMOGRAM Routine 09/18/2017 3:10 Results for this [facility] procedure are in the results section. POC GLUCOSE Routine 09/17/2017 11:34 Results for this [facility] procedure are in the results section. POC GLUCOSE Routine 09/17/2017 7:42 Results for this [facility] procedure are in the results section. POC GLUCOSE Routine 09/17/2017 3:58 Results for this [facility] procedure are in the results section. PHOSPHORUS LEVEL STAT 09/17/2017 2:34 Results for this [facility] procedure are in the results section. POTASSIUM LEVEL STAT 09/17/2017 2:34 Results for this [facility] procedure are in the results section. MAGNESIUM LEVEL STAT 09/17/2017 2:34 Results for this [facility] procedure are in the results section. IONIZED CALCIUM STAT 09/17/2017 2:34 Results for this [facility] procedure are in the results section. TRACHEOSTOMY REPLACEMENT Routine 09/17/2017 12:24 Acute postoperative Results for this PM [facility] pulmonary procedure are in insufficiency the results S/P AVR section. 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 POC GLUCOSE Routine 09/17/2017 8:30 Results for this [facility] procedure are in the results section. POC GLUCOSE Routine 09/17/2017 3:56 Results for this [facility] procedure are in the results section. ZZESTIMATED GFR Routine 09/17/2017 3:01 Results for this [facility] procedure are in the results section. PHOSPHORUS LEVEL Routine 09/17/2017 3:01 Results for this [facility] procedure are in the results section. BASIC METABOLIC PANEL Routine 09/17/2017 3:01 Results for this [facility] procedure are in the results section. MAGNESIUM LEVEL Routine 09/17/2017 3:01 Results for this [facility] procedure are in the results section. CBC HEMOGRAM Routine 09/17/2017 2:30 Results for this [facility] procedure are in the results section. TYPE AND SCREEN Routine 09/17/2017 2:30 Results for this [facility] procedure are in the results section. POC GLUCOSE Routine 09/16/2017 11:20 Results for this [facility] procedure are in the results section. POC GLUCOSE Routine 09/16/2017 7:20 Results for this [facility] procedure are in the results section. POC GLUCOSE Routine 09/16/2017 4:26 Results for this [facility] procedure are in the results section. PHOSPHORUS LEVEL STAT 09/16/2017 3:25 Results for this [facility] procedure are in the results section. POTASSIUM LEVEL STAT 09/16/2017 3:25 Results for this [facility] procedure are in the results section. MAGNESIUM LEVEL STAT 09/16/2017 3:25 Results for this [facility] procedure are in the results section. IONIZED CALCIUM STAT 09/16/2017 3:25 Results for this [facility] procedure are in the results section. POC GLUCOSE Routine 09/16/2017 11:55 Results for this [facility] procedure are in the results section. POC GLUCOSE Routine 09/16/2017 8:19 Results for this [facility] procedure are in the results section. ECG 12-LEAD Routine 09/16/2017 4:48 Results for this [facility] procedure are in the results section. XR CHEST 1 VW PORTABLE Routine 09/16/2017 4:44 Results for this [facility] procedure are in the results section. POC GLUCOSE Routine 09/16/2017 4:00 Results for this [facility] procedure are in the results section. ZZESTIMATED GFR Routine 09/16/2017 1:52 Results for this [facility] procedure are in the results section. IONIZED CALCIUM Routine 09/16/2017 1:52 Results for this [facility] procedure are in the results section. PHOSPHORUS LEVEL Routine 09/16/2017 1:52 Results for this [facility] procedure are in the results section. MAGNESIUM LEVEL Routine 09/16/2017 1:52 Results for this [facility] procedure are in the results section. BASIC METABOLIC PANEL Routine 09/16/2017 1:52 Results for this [facility] procedure are in the results section. HC COMPLETE BLD COUNT Routine 09/16/2017 1:52 Results for this W/AUTO DIFF [facility] procedure are in the results section. POC GLUCOSE Routine 09/16/2017 12:21 Results for this [facility] procedure are in the results section. POC GLUCOSE Routine 09/15/2017 8:42 Results for this [facility] procedure are in the results section. POC GLUCOSE Routine 09/15/2017 3:46 Results for this [facility] procedure are in the results section. POC GLUCOSE Routine 09/15/2017 11:40 Results for this [facility] procedure are in the results section. IR GASTROSTOMY CATHETER Routine 09/15/2017 9:47 Results for this INITIAL PLACEMENT [facility] procedure are in the results section. POC GLUCOSE Routine 09/15/2017 7:51 Results for this [facility] procedure are in the results section. XR CHEST 1 VW PORTABLE Routine 09/15/2017 5:20 Results for this [facility] procedure are in the results section. ECG 12-LEAD Routine 09/15/2017 4:07 Results for this [facility] procedure are in the results section. POC GLUCOSE Routine 09/15/2017 3:48 Results for this [facility] procedure are in the results section. ZZESTIMATED GFR Routine 09/15/2017 2:12 Results for this [facility] procedure are in the results section. HC COMPLETE BLD COUNT Routine 09/15/2017 2:12 Results for this W/AUTO DIFF [facility] procedure are in the results section. PROTHROMBIN TIME WITH Routine 09/15/2017 2:12 Results for this INR [facility] procedure are in the results section. PARTIAL THROMBOPLASTIN Routine 09/15/2017 2:12 Results for this TIME (PTT) [facility] procedure are in the results section. IONIZED CALCIUM Routine 09/15/2017 2:12 Results for this [facility] procedure are in the results section. PHOSPHORUS LEVEL Routine 09/15/2017 2:12 Results for this [facility] procedure are in the results section. MAGNESIUM LEVEL Routine 09/15/2017 2:12 Results for this [facility] procedure are in the results section. BASIC METABOLIC PANEL Routine 09/15/2017 2:12 Results for this [facility] procedure are in the results section. POC GLUCOSE Routine 09/15/2017 12:02 Results for this [facility] procedure are in the results section. POC GLUCOSE Routine 09/14/2017 8:14 Results for this PM [facility] procedure are in the results section. POC GLUCOSE Routine 09/14/2017 4:12 Results for this [facility] procedure are in the results section. POC GLUCOSE Routine 09/14/2017 11:59 Results for this [facility] procedure are in the results section. POC GLUCOSE Routine 09/14/2017 8:23 Results for this [facility] procedure are in the results section. ECG 12-LEAD Routine 09/14/2017 4:52 Results for this [facility] procedure are in the results section. XR CHEST 1 VW PORTABLE Routine 09/14/2017 4:39 Results for this [facility] procedure are in the results section. POC GLUCOSE Routine 09/14/2017 4:12 Results for this [facility] procedure are in the results section. ZZESTIMATED GFR Routine 09/14/2017 2:24 Results for this [facility] procedure are in the results section. IONIZED CALCIUM Routine 09/14/2017 2:24 Results for this [facility] procedure are in the results section. PHOSPHORUS LEVEL Routine 09/14/2017 2:24 Results for this [facility] procedure are in the results section. MAGNESIUM LEVEL Routine 09/14/2017 2:24 Results for this [facility] procedure are in the results section. BASIC METABOLIC PANEL Routine 09/14/2017 2:24 Results for this [facility] procedure are in the results section. PARTIAL THROMBOPLASTIN Routine 09/14/2017 2:00 Results for this TIME (PTT) [facility] procedure are in the results section. PROTHROMBIN TIME WITH Routine 09/14/2017 2:00 Results for this INR [facility] procedure are in the results section. HC COMPLETE BLD COUNT Routine 09/14/2017 2:00 Results for this W/AUTO DIFF [facility] procedure are in the results section. POC GLUCOSE Routine 09/14/2017 1:00 Results for this [facility] procedure are in the results section. POC GLUCOSE Routine 09/13/2017 8:51 Results for this [facility] procedure are in the results section. POC GLUCOSE Routine 09/13/2017 5:02 Results for this [facility] procedure are in the results section. HEMOGLOBIN & HEMATOCRIT Timed 09/13/2017 3:52 Results for this [facility] procedure are in the results section. TRACHEOSTOMY REPLACEMENT Routine 09/13/2017 3:23 Acute postoperative Results for this PM [facility] pulmonary procedure are in insufficiency the results section. POC GLUCOSE Routine 09/13/2017 11:44 Results for this [facility] procedure are in the results section. POC GLUCOSE Routine 09/13/2017 8:27 Results for this [facility] procedure are in the results section. XR CHEST 1 VW PORTABLE Routine 09/13/2017 5:10 Results for this [facility] procedure are in the results section. POC GLUCOSE Routine 09/13/2017 4:38 Results for this [facility] procedure are in the results section. ZZESTIMATED GFR Routine 09/13/2017 1:58 Results for this [facility] procedure are in the results section. PROTHROMBIN TIME WITH Routine 09/13/2017 1:58 Results for this INR [facility] procedure are in the results section. PARTIAL THROMBOPLASTIN Routine 09/13/2017 1:58 Results for this TIME (PTT) [facility] procedure are in the results section. PHOSPHORUS LEVEL Routine 09/13/2017 1:58 Results for this [facility] procedure are in the results section. MAGNESIUM LEVEL Routine 09/13/2017 1:58 Results for this [facility] procedure are in the results section. IONIZED CALCIUM Routine 09/13/2017 1:58 Results for this [facility] procedure are in the results section. CBC HEMOGRAM Routine 09/13/2017 1:58 Results for this [facility] procedure are in the results section. BASIC METABOLIC PANEL Routine 09/13/2017 1:58 Results for this [facility] procedure are in the results section. POC GLUCOSE Routine 09/13/2017 12:27 Results for this [facility] procedure are in the results section. POC GLUCOSE Routine 09/12/2017 8:32 Results for this PM [facility] procedure are in the results section. POC GLUCOSE Routine 09/12/2017 6:17 Results for this [facility] procedure are in the results section. POC GLUCOSE Routine 09/12/2017 12:30 Results for this [facility] procedure are in the results section. POC GLUCOSE Routine 09/12/2017 9:12 Results for this [facility] procedure are in the results section. XR CHEST 1 VW PORTABLE Routine 09/12/2017 6:32 Results for this [facility] procedure are in the results section. POC GLUCOSE Routine 09/12/2017 4:51 Results for this [facility] procedure are in the results section. ZZESTIMATED GFR Routine 09/12/2017 2:10 Results for this [facility] procedure are in the results section. PHOSPHORUS LEVEL Routine 09/12/2017 2:10 Results for this [facility] procedure are in the results section. MAGNESIUM LEVEL Routine 09/12/2017 2:10 Results for this [facility] procedure are in the results section. IONIZED CALCIUM Routine 09/12/2017 2:10 Results for this [facility] procedure are in the results section. BASIC METABOLIC PANEL Routine 09/12/2017 2:10 Results for this [facility] procedure are in the results section. CBC HEMOGRAM Routine 09/12/2017 1:55 Results for this [facility] procedure are in the results section. TYPE AND SCREEN Routine 09/12/2017 1:55 Results for this [facility] procedure are in the results section. POC GLUCOSE Routine 09/11/2017 11:55 Results for this [facility] procedure are in the results section. POC GLUCOSE Routine 09/11/2017 7:52 Results for this [facility] procedure are in the results section. POC GLUCOSE Routine 09/11/2017 4:29 Results for this [facility] procedure are in the results section. POC GLUCOSE Routine 09/11/2017 12:34 Results for this [facility] procedure are in the results section. XR CHEST 1 VW PORTABLE Routine 09/11/2017 12:12 Results for this [facility] procedure are in the results section. XR ABDOMEN 1 VW PORTABLE Routine 09/11/2017 9:01 Results for this [facility] procedure are in the results section. POC GLUCOSE Routine 09/11/2017 8:42 Results for this [facility] procedure are in the results section. POC GLUCOSE Routine 09/11/2017 4:54 Results for this [facility] procedure are in the results section. ZZESTIMATED GFR Routine 09/11/2017 1:00 Results for this [facility] procedure are in the results section. IONIZED CALCIUM Routine 09/11/2017 1:00 Results for this [facility] procedure are in the results section. PHOSPHORUS LEVEL Routine 09/11/2017 1:00 Results for this [facility] procedure are in the results section. MAGNESIUM LEVEL Routine 09/11/2017 1:00 Results for this [facility] procedure are in the results section. BASIC METABOLIC PANEL Routine 09/11/2017 1:00 Results for this [facility] procedure are in the results section. HC COMPLETE BLD COUNT Routine 09/11/2017 1:00 Results for this W/AUTO DIFF [facility] procedure are in the results section. POC GLUCOSE Routine 09/11/2017 12:08 Results for this [facility] procedure are in the results section. POC GLUCOSE Routine 09/10/2017 7:27 Results for this [facility] procedure are in the results section. POC GLUCOSE Routine 09/10/2017 4:12 Results for this [facility] procedure are in the results section. IONIZED CALCIUM Routine 09/10/2017 3:00 Results for this [facility] procedure are in the results section. PHOSPHORUS LEVEL Routine 09/10/2017 3:00 Results for this [facility] procedure are in the results section. MAGNESIUM LEVEL Routine 09/10/2017 3:00 Results for this [facility] procedure are in the results section. POTASSIUM LEVEL Routine 09/10/2017 3:00 Results for this [facility] procedure are in the results section. POC GLUCOSE Routine 09/10/2017 12:02 Results for this [facility] procedure are in the results section. POC GLUCOSE Routine 09/10/2017 7:40 Results for this [facility] procedure are in the results section. ECG 12-LEAD Routine 09/10/2017 6:22 Results for this [facility] procedure are in the results section. XR CHEST 1 VW PORTABLE Routine 09/10/2017 6:04 Results for this [facility] procedure are in the results section. POC GLUCOSE Routine 09/10/2017 3:48 Results for this [facility] procedure are in the results section. ZZESTIMATED GFR Timed 09/10/2017 1:33 Results for this [facility] procedure are in the results section. PHOSPHORUS LEVEL Timed 09/10/2017 1:33 Results for this [facility] procedure are in the results section. MAGNESIUM LEVEL Timed 09/10/2017 1:33 Results for this [facility] procedure are in the results section. BASIC METABOLIC PANEL Timed 09/10/2017 1:33 Results for this [facility] procedure are in the results section. MANUAL DIFFERENTIAL Timed 09/10/2017 1:15 Results for this [facility] procedure are in the results section. IONIZED CALCIUM, Timed 09/10/2017 1:15 Results for this ARTERIAL [facility] procedure are in the results section. CBC WITH PLATELET AND Timed 09/10/2017 1:15 Results for this DIFFERENTIAL [facility] procedure are in the results section. ARTERIAL BLOOD GAS Timed 09/10/2017 1:15 Results for this [facility] procedure are in the results section. POC GLUCOSE Routine 09/09/2017 11:39 Results for this [facility] procedure are in the results section. POC GLUCOSE Routine 09/09/2017 7:46 Results for this [facility] procedure are in the results section. POC GLUCOSE Routine 09/09/2017 3:24 Results for this [facility] procedure are in the results section. IONIZED CALCIUM Routine 09/09/2017 3:14 Results for this [facility] procedure are in the results section. PHOSPHORUS LEVEL Routine 09/09/2017 3:14 Results for this [facility] procedure are in the results section. POTASSIUM LEVEL Routine 09/09/2017 3:14 Results for this [facility] procedure are in the results section. MAGNESIUM LEVEL Routine 09/09/2017 3:14 Results for this [facility] procedure are in the results section. POC GLUCOSE Routine 09/09/2017 11:40 Results for this [facility] procedure are in the results section. OCCULT BLOOD, STOOL Routine 09/09/2017 10:00 Results for this [facility] procedure are in the results section. POC GLUCOSE Routine 09/09/2017 7:48 Results for this [facility] procedure are in the results section. ECG 12-LEAD Routine 09/09/2017 6:01 Results for this [facility] procedure are in the results section. XR CHEST 1 VW PORTABLE Routine 09/09/2017 4:08 Results for this [facility] procedure are in the results section. POC GLUCOSE Routine 09/09/2017 3:38 Results for this [facility] procedure are in the results section. IONIZED CALCIUM, Timed 09/09/2017 1:53 Results for this ARTERIAL [facility] procedure are in the results section. ARTERIAL BLOOD GAS Timed 09/09/2017 1:53 Results for this [facility] procedure are in the results section. ZZESTIMATED GFR Timed 09/09/2017 1:41 Results for this [facility] procedure are in the results section. PHOSPHORUS LEVEL Timed 09/09/2017 1:41 Results for this [facility] procedure are in the results section. MAGNESIUM LEVEL Timed 09/09/2017 1:41 Results for this [facility] procedure are in the results section. BASIC METABOLIC PANEL Timed 09/09/2017 1:41 Results for this [facility] procedure are in the results section. PARTIAL THROMBOPLASTIN Timed 09/09/2017 1:25 Results for this TIME (PTT) [facility] procedure are in the results section. HC COMPLETE BLD COUNT Timed 09/09/2017 1:07 Results for this W/AUTO DIFF [facility] procedure are in the results section. POC GLUCOSE Routine 09/08/2017 11:55 Results for this [facility] procedure are in the results section. POC GLUCOSE Routine 09/08/2017 7:27 Results for this [facility] procedure are in the results section. POC GLUCOSE Routine 09/08/2017 3:52 Results for this [facility] procedure are in the results section. IONIZED CALCIUM Routine 09/08/2017 2:22 Results for this [facility] procedure are in the results section. POTASSIUM LEVEL Routine 09/08/2017 2:22 Results for this [facility] procedure are in the results section. MAGNESIUM LEVEL Routine 09/08/2017 2:22 Results for this [facility] procedure are in the results section. HEMOGLOBIN & HEMATOCRIT Routine 09/08/2017 2:22 Results for this [facility] procedure are in the results section. TRANSFUSE RED BLOOD Routine 09/08/2017 12:29 CELLS [facility] POC GLUCOSE Routine 09/08/2017 11:50 Results for this [facility] procedure are in the results section. URINALYSIS SCREEN AND Routine 09/08/2017 11:30 Results for this MICROSCOPY, WITH REFLEX [facility] procedure are in TO CULTURE the results section. GRAM STAIN Routine 09/08/2017 11:30 Results for this [facility] procedure are in the results section. URINE CULTURE Routine 09/08/2017 11:30 Results for this [facility] procedure are in the results section. POC GLUCOSE Routine 09/08/2017 7:47 Results for this [facility] procedure are in the results section. XR CHEST 1 VW PORTABLE Routine 09/08/2017 7:22 Results for this [facility] procedure are in the results section. ECG 12-LEAD Routine 09/08/2017 6:06 Results for this [facility] procedure are in the results section. IONIZED CALCIUM, Timed 09/08/2017 4:25 Results for this ARTERIAL [facility] procedure are in the results section. ARTERIAL BLOOD GAS Timed 09/08/2017 4:25 Results for this [facility] procedure are in the results section. POC GLUCOSE Routine 09/08/2017 3:59 Results for this [facility] procedure are in the results section. PROTHROMBIN TIME WITH Routine 09/08/2017 3:50 Results for this INR [facility] procedure are in the results section. PARTIAL THROMBOPLASTIN Routine 09/08/2017 3:50 Results for this TIME (PTT) [facility] procedure are in the results section. HC COMPLETE BLD COUNT Timed 09/08/2017 3:50 Results for this W/AUTO DIFF [facility] procedure are in the results section. ZZESTIMATED GFR Timed 09/08/2017 2:00 Results for this [facility] procedure are in the results section. PHOSPHORUS LEVEL Timed 09/08/2017 2:00 Results for this [facility] procedure are in the results section. MAGNESIUM LEVEL Timed 09/08/2017 2:00 Results for this [facility] procedure are in the results section. BASIC METABOLIC PANEL Timed 09/08/2017 2:00 Results for this [facility] procedure are in the results section. POC GLUCOSE Routine 09/07/2017 11:42 Results for this [facility] procedure are in the results section. HEMOGLOBIN & HEMATOCRIT Routine 09/07/2017 7:55 Results for this PM [facility] procedure are in the results section. PARTIAL THROMBOPLASTIN Routine 09/07/2017 7:55 Results for this TIME (PTT) PM [facility] procedure are in the results section. POC GLUCOSE Routine 09/07/2017 7:38 Results for this PM [facility] procedure are in the results section. POC GLUCOSE Routine 09/07/2017 4:08 Results for this PM [facility] procedure are in the results section. POC GLUCOSE Routine 09/07/2017 12:15 Results for this PM [facility] procedure are in the results section. PARTIAL THROMBOPLASTIN Timed 09/07/2017 11:55 Results for this TIME (PTT) AM [facility] procedure are in the results section. POC GLUCOSE Routine 09/07/2017 8:07 Results for this AM [facility] procedure are in the results section. XR CHEST 1 VW PORTABLE Routine 09/07/2017 7:20 Results for this AM [facility] procedure are in the results section. ZZESTIMATED GFR Routine 09/07/2017 3:50 Results for this AM [facility] procedure are in the results section. PHOSPHORUS LEVEL Routine 09/07/2017 3:50 Results for this AM [facility] procedure are in the results section. MAGNESIUM LEVEL Routine 09/07/2017 3:50 Results for this AM [facility] procedure are in the results section. BASIC METABOLIC PANEL Routine 09/07/2017 3:50 Results for this AM [facility] procedure are in the results section. POC GLUCOSE Routine 09/07/2017 3:44 Results for this AM [facility] procedure are in the results section. IONIZED CALCIUM, Routine 09/07/2017 3:35 Results for this ARTERIAL AM [facility] procedure are in the results section. PARTIAL THROMBOPLASTIN Timed 09/07/2017 3:35 Results for this TIME (PTT) AM [facility] procedure are in the results section. ARTERIAL BLOOD GAS Routine 09/07/2017 3:35 Results for this AM [facility] procedure are in the results section. HC COMPLETE BLD COUNT Routine 09/07/2017 3:35 Results for this W/AUTO DIFF AM [facility] procedure are in the results section. POC GLUCOSE Routine 09/06/2017 11:46 Results for this PM [facility] procedure are in the results section. XR ABDOMEN 1 VW PORTABLE STAT 09/06/2017 9:36 Results for this PM [facility] procedure are in the results section. PARTIAL THROMBOPLASTIN Timed 09/06/2017 8:00 Results for this TIME (PTT) PM [facility] procedure are in the results section. POC GLUCOSE Routine 09/06/2017 7:36 Results for this PM [facility] procedure are in the results section. POC GLUCOSE Routine 09/06/2017 4:32 Results for this PM [facility] procedure are in the results section. POC GLUCOSE Routine 09/06/2017 12:18 Results for this PM [facility] procedure are in the results section. PARTIAL THROMBOPLASTIN Timed 09/06/2017 11:28 Results for this TIME (PTT) AM [facility] procedure are in the results section. POC GLUCOSE Routine 09/06/2017 8:07 Results for this AM [facility] procedure are in the results section. XR ABDOMEN 1 VW PORTABLE STAT 09/06/2017 7:10 Results for this AM [facility] procedure are in the results section. XR CHEST 1 VW PORTABLE Routine 09/06/2017 7:10 Results for this AM [facility] procedure are in the results section. POC GLUCOSE Routine 09/06/2017 4:48 Results for this AM [facility] procedure are in the results section. PREPARE RBC Timed 09/06/2017 3:06 Results for this AM [facility] procedure are in the results section. ZZESTIMATED GFR Routine 09/06/2017 3:06 Results for this AM [facility] procedure are in the results section. ARTERIAL BLOOD GAS Routine 09/06/2017 3:06 Results for this AM [facility] procedure are in the results section. HC COMPLETE BLD COUNT Routine 09/06/2017 3:06 Results for this W/AUTO DIFF AM [facility] procedure are in the results section. BASIC METABOLIC PANEL Routine 09/06/2017 3:06 Results for this AM [facility] procedure are in the results section. IONIZED CALCIUM Routine 09/06/2017 3:06 Results for this AM [facility] procedure are in the results section. PHOSPHORUS LEVEL Routine 09/06/2017 3:06 Results for this AM [facility] procedure are in the results section. MAGNESIUM LEVEL Routine 09/06/2017 3:06 Results for this AM [facility] procedure are in the results section. TYPE AND SCREEN Routine 09/06/2017 3:06 Results for this AM [facility] procedure are in the results section. PARTIAL THROMBOPLASTIN Routine 09/06/2017 3:06 Results for this TIME (PTT) AM [facility] procedure are in the results section. POC GLUCOSE Routine 09/06/2017 12:51 Results for this AM [facility] procedure are in the results section. after 09/06/2017 Results Botulinum Injection (07/04/2018 1:15 PM [facility]) Narrative Performed At Telma Hurt MD 07/04/20185:28 PM Botulinum Injection Date/Time: 07/04/2018 1:47 PM Performed by: Telma Hurt MD Authorized by: Telma Hurt MD Consent: Consent obtained:Written Consent given by:Patient Risks discussed:Bleeding, excessive weakness, muscle atrophy, venous thrombosis and pain and discomfort Benefits discussed:Decreased muscle tightness, increased joint range of motion and decreased pain [place] protocol: Procedure explained and questions answered to [...] muscle: No Procedure details: Agent Botulinum Toxin:Dysport (lot [id number] exp 01/04/2019) Total Units Injected:1500 Dysport Medications Administered:1,500 Units abobotulinumtoxinA 500 unit Upper Extremity Muscles: Biceps Brevis - Left Units:250 Biceps Brevis - Right Units: Biceps Longus - Left Units:250 Biceps Longus - Right Units: Brachialis - Left Units:125 Brachialis - Right Units: Brachioradialis - Left Units:125 Brachioradialis - Right Units: Flexor Carpi Radialis - Left Units:125 Flexor Carpi Radialis - Right Units: Flexor Carpi Ulnaris - Left Units:125 Flexor Carpi Ulnaris - Right Units: Flexor Digitorium Profundus - Left Units:250 Flexor Digitorium Profundus - Right Units: Flexor Digitorium Superficialis - Left Units:250 Flexor Digitorium Superficialis - Right Units: EMG Guidance Used: emg guidance used Number of EMG Guidance Used:1 (Needle Electromyography guidance used.) Post-procedure details: Patient tolerance of procedure:Tolerated well, no immediate complications Comments: Needle Electromyography guidance used. Benefits discussed included, but were not limited [...] There was no blood retrieved on aspiration. Botulinum Toxin Injection (04/03/2018 1:00 PM CDT) Narrative Performed At Telma Hurt MD 04/03/20182:23 PM Botulinum Injection Date/Time: 04/03/2018 1:16 PM Performed by: TELMA HURT Authorized by: TELMA HURT Consent: Consent obtained:Written Consent given by:Patient Risks discussed:Bleeding, excessive weakness, muscle atrophy, venous thrombosis and pain and discomfort Benefits discussed:Decreased muscle tightness, increased joint range of motion and decreased pain [place] protocol: Procedure explained and questions answered to [...] Procedure details: Agent Botulinum Toxin:Dysport Total Units Injected:1500 Dysport Medications Administered:1,500 Units abobotulinumtoxinA 500 unit Lower Extremity Muscles: Gastrocnemius Lateral Head - Left Units: Gastrocnemius Lateral Head - Right Units:250 Gastrocnemius Medial Head - Left Units: Gastrocnemius Medial Head - Right Units:250 Hamstring Lateral - Left Units: Hamstring Lateral - Right Units:375 Hamstring Medial - Left Units: Hamstring Medial - Right Units:375 Soleus - Left Units: Soleus - Right Units:250 EMG Guidance Used: emg [...] There was no blood retrieved on aspiration. Botulinum Toxin Injection (12/26/2017 1:15 PM CDT) Narrative Performed At Telma Hurt MD 12/26/20172:38 PM Botulinum Injection Date/Time: 12/26/2017 1:27 PM Performed by: TELMA HURT Authorized by: TELMA HURT Consent: Consent obtained:Written Consent given by:Patient Risks discussed:Bleeding, excessive weakness, muscle atrophy, venous thrombosis and pain and discomfort Benefits discussed:Decreased muscle tightness, increased joint range of motion and decreased pain [place] protocol: Procedure explained and questions answered to [...] aspiration. Prothrombin time with INR (11/16/2017 4:20 AM CDT)Only the most recent of25 resultswithin the time period is included. Prothrombin time 24.8 (H) 12.0 - 15.0 sec [facility] DEPARTMENT OF PATHOLOGY AND GENOMIC MEDICINE INR 2.2 [facility] DEPARTMENT OF Comment: PATHOLOGY AND GENOMIC The International Normalized Ratio (INR) is a therapeutic MEDICINE monitoring tool for patients who are stable on oral anticoagulant therapy. An INR of 2.0-3.0 is suggested for deep vein thrombosis/pulmonary embolism. Specimen Blood Performing Organization Address City/[facility] Cent[facility]ode Phone Number [facility] DEPARTMENT OF PATHOLOGY AND [address] [place] [phone] [facility] POC glucose (11/13/2017 5:04 PM CDT)Only the most recent of87 resultswithin the time period is included. POC glucose 93 65 - 99 mg/dL [facility] DEPARTMENT OF PATHOLOGY AND Comment: [employer] [facility] Notified RN Meter ID: [id number] Ep Technologist: Jonel Cullen Performing Organization Address City/[facility]/Zipcode Phone Number [facility] DEPARTMENT OF PATHOLOGY AND [address] [place] [phone] [facility] CBC with platelet and differential (11/01/2017 5:05 PM CDT)Only the most recent of13 resultswithin the time period is included. WBC 7.79 4.50 - 11.00 k/uL [facility] DEPARTMENT OF PATHOLOGY AND GENOMIC MEDICINE RBC 4.22 (L) 4.40 - 6.00 m/uL [facility] DEPARTMENT OF PATHOLOGY AND GENOMIC MEDICINE HGB 11.8 (L) 14.0 - 18.0 g/dL [facility] DEPARTMENT OF PATHOLOGY AND GENOMIC MEDICINE HCT 37.9 (L) 41.0 - 51.0 % [facility] DEPARTMENT OF PATHOLOGY AND GENOMIC MEDICINE MCV 89.8 82.0 - 100.0 fL [facility] DEPARTMENT OF PATHOLOGY AND GENOMIC MEDICINE MCH 28.0 27.0 - 34.0 pg [facility] DEPARTMENT OF PATHOLOGY AND GENOMIC MEDICINE MCHC 31.1 31.0 - 37.0 g/dL [facility] DEPARTMENT OF PATHOLOGY AND GENOMIC MEDICINE RDW - SD 43.9 37.0 - 55.0 fL [facility] DEPARTMENT OF PATHOLOGY AND GENOMIC MEDICINE MPV 9.4 8.8 - 13.2 fL [facility] DEPARTMENT OF PATHOLOGY AND GENOMIC MEDICINE Platelet count 357 150 - 400 k/uL [facility] DEPARTMENT OF PATHOLOGY AND GENOMIC MEDICINE Nucleated RBC 0.00 /100 WBC [facility] DEPARTMENT OF PATHOLOGY AND GENOMIC MEDICINE Neutrophils 69.1 (H) 39.0 - 69.0 % [facility] DEPARTMENT OF PATHOLOGY AND GENOMIC MEDICINE Lymphocytes 20.3 (L) 25.0 - 45.0 % [facility] DEPARTMENT OF PATHOLOGY AND GENOMIC MEDICINE Monocytes 7.8 0.0 - 10.0 % [facility] DEPARTMENT OF PATHOLOGY AND GENOMIC MEDICINE Eosinophils 1.8 0.0 - 5.0 % [facility] DEPARTMENT OF PATHOLOGY AND GENOMIC MEDICINE Basophils 0.6 0.0 - 1.0 % [facility] DEPARTMENT OF PATHOLOGY AND GENOMIC MEDICINE Immature granulocytes 0.4Comment: 0.0 - 1.0 % [facility] DEPARTMENT OF "Immature PATHOLOGY AND GENOMIC granulocytes" MEDICINE (promyelocytes, myelocytes, metamyelocytes) Specimen Blood Performing Organization Address City/State/Zipcode Phone Number [facility] DEPARTMENT OF PATHOLOGY AND [address] [place] [address] [employer] MEDICINE Estimated GFR (11/01/2017 1:11 PM CDT)Only the most recent of18 resultswithin the time period is included. GFR Non Af Amer 67 mL/min/1.73 m2 [facility] DEPARTMENT OF PATHOLOGY AND GENOMIC MEDICINE GFR Af Amer 81 mL/min/1.73 m2 [facility] DEPARTMENT OF Comment: PATHOLOGY AND GENOMIC Chronic kidney disease: <60 mL/min/1.73m2 MEDICINE Kidney failure: <15 mL/min/1.73m2 The estimated GFR is calculated from the IDMS-traceable Modification of Diet in Renal Disease Equation. The accuracy of the calculation is poor when the creatinine is normal. Calculated values >90 mL/min/1.73m2 are not reported. This equation has not been validated in children (<18 years), women, the elderly (>70 years), or ethnic groups other than Caucasians and Americans. Specimen Plasma specimen Performing Organization Address City/[facility] Cent[facility]ode Phone Number [facility] DEPARTMENT OF PATHOLOGY AND [address] [place] [phone] [facility] Basic metabolic panel (11/01/2017 1:11 PM CDT)Only the most recent of18 resultswithin the time period is included. Sodium 139 135 - 148 mEq/L [facility] DEPARTMENT OF PATHOLOGY AND GENOMIC MEDICINE Potassium 3.7 3.5 - 5.0 mEq/L [facility] DEPARTMENT OF PATHOLOGY AND GENOMIC MEDICINE Chloride 96 (L) 98 - 112 mEq/L [facility] DEPARTMENT OF PATHOLOGY AND GENOMIC MEDICINE CO2 29 24 - 31 mEq/L [facility] DEPARTMENT OF PATHOLOGY AND GENOMIC MEDICINE Anion gap 14 7 - 15 mEq/L [facility] DEPARTMENT OF PATHOLOGY Comment: [facility] Starting from November , anion gap calculation no longer incorporates potassium. Please note the change. BUN 18 8 - 23 mg/dL [facility] DEPARTMENT OF PATHOLOGY AND GENOMIC MEDICINE Creatinine 1.1 0.7 - 1.2 mg/dL [facility] DEPARTMENT OF PATHOLOGY AND GENOMIC MEDICINE Glucose 85 65 - 99 mg/dL [facility] DEPARTMENT OF PATHOLOGY AND GENOMIC MEDICINE Calcium 9.5 8.8 - 10.2 mg/dL [facility] DEPARTMENT OF PATHOLOGY AND GENOMIC MEDICINE Specimen Plasma specimen Performing Organization Address City/[facility]ercode Phone Number [facility] DEPARTMENT OF PATHOLOGY AND [address] [place] [address] [facility] XR Chest 1 Vw Portable (10/22/2017 8:36 AM CDT)Only the most recent of13 resultswithin the time period is included. Narrative Performed At EXAMINATION:XR CHEST 1 VW PORTABLE [facility] CLINICAL HISTORY:Post ventilator COMPARISON:To a previous examination from 09/18/2017 IMPRESSION: Changes related midline sternotomy are present. The cardiomediastinal silhouette pulmonary vessels are prominent. The lungs are hypoventilated. [facility]-[id number] Procedure Note Hm Interface, Radiology Results Incoming - 10/22/2017 10:12 AM CDT EXAMINATION: XR CHEST 1 VW PORTABLE CLINICAL HISTORY: Post ventilator COMPARISON: To a previous examination from 09/18/2017 IMPRESSION: Changes related midline sternotomy are present. The cardiomediastinal silhouette pulmonary vessels are prominent. The lungs are hypoventilated. [facility]-[id number] Performing Organization Address City/[facility]/Zipcode Phone Number [facility] [address] [place] [phone] CBC hemogram (10/22/2017 5:00 AM CDT)Only the most recent of6 resultswithin the time period is included. WBC 7.81 4.50 - 11.00 k/uL [facility] DEPARTMENT OF PATHOLOGY AND GENOMIC MEDICINE RBC 3.71 (L) 4.40 - 6.00 m/uL [facility] DEPARTMENT OF PATHOLOGY AND GENOMIC MEDICINE HGB 10.6 (L) 14.0 - 18.0 g/dL [facility] DEPARTMENT OF PATHOLOGY AND GENOMIC MEDICINE HCT 33.2 (L) 41.0 - 51.0 % [facility] DEPARTMENT OF PATHOLOGY AND GENOMIC MEDICINE MCV 89.5 82.0 - 100.0 fL [facility] DEPARTMENT OF PATHOLOGY AND GENOMIC MEDICINE MCH 28.6 27.0 - 34.0 pg [facility] DEPARTMENT OF PATHOLOGY AND GENOMIC MEDICINE MCHC 31.9 31.0 - 37.0 g/dL [facility] DEPARTMENT OF PATHOLOGY AND GENOMIC MEDICINE RDW - SD 43.9 37.0 - 55.0 fL [facility] DEPARTMENT OF PATHOLOGY AND GENOMIC MEDICINE MPV 9.6 8.8 - 13.2 fL [facility] DEPARTMENT OF PATHOLOGY AND GENOMIC MEDICINE Platelet count 302 150 - 400 k/uL [facility] DEPARTMENT OF PATHOLOGY AND GENOMIC MEDICINE Nucleated RBC 0.00 /100 WBC [facility] DEPARTMENT OF PATHOLOGY AND GENOMIC MEDICINE Specimen Blood Performing Organization Address City/[facility]ercode Phone Number [facility] DEPARTMENT OF PATHOLOGY AND [address] [place] [phone] GENOMIC MEDICINE Magnesium level (10/15/2017 4:00 AM CDT)Only the most recent of21 resultswithin the time period is included. Magnesium 2.2 1.6 - 2.4 mg/dL [facility] DEPARTMENT OF PATHOLOGY AND GENOMIC MEDICINE Specimen Plasma specimen Performing Organization Address City/[facility]/Zipcode Phone Number [facility] DEPARTMENT OF PATHOLOGY AND [address] [place] [phone] [facility] MEDICINE [place] Modified Barium Swallow (10/11/2017 2:42 PM [facility]) Narrative Performed At EXAMINATION:[place] MODIFIED BARIUM SWALLOW [facility] CLINICAL HISTORY:DYSPHAGIAOROPHARYNGEALHAS ATTRIBUTABLE CAUSE COMPARISON:None. Fluoroscopy time: 2.4 minutes FINDINGS: The patient was given multiple consistencies of barium. There was flash penetration with thin liquids. No aspiration. IMPRESSION: Flash penetration with thin liquids. Please refer to Speech Pathology report for further details. [facility]-[id number] Procedure Note Hm Interface, Radiology Results Incoming - 10/11/2017 3:46 PM [facility] EXAMINATION: [place] MODIFIED BARIUM SWALLOW CLINICAL HISTORY: DYSPHAGIA OROPHARYNGEAL HAS ATTRIBUTABLE CAUSE COMPARISON: None. Fluoroscopy time: 2.4 minutes FINDINGS: The patient was given multiple consistencies of barium. There was flash penetration with thin liquids. No aspiration. IMPRESSION: Flash penetration with thin liquids. Please refer to Speech Pathology report for further details. [facility]-[id number] Performing Organization Address City/State/Zipcode Phone Number [facility] [address] [place] [address] Urinalysis, automated with microscopy (10/10/2017 5:40 AM [facility]) Color, UA Red [facility] DEPARTMENT OF PATHOLOGY AND GENOMIC MEDICINE Appearance, UA Cloudy [facility] DEPARTMENT OF PATHOLOGY AND GENOMIC MEDICINE Specific gravity, UA 1.015 1.001 - 1.035 [facility] DEPARTMENT OF PATHOLOGY AND GENOMIC MEDICINE pH, UA 7.0 5.0 - 8.5 [facility] DEPARTMENT OF PATHOLOGY AND GENOMIC MEDICINE Protein, UA 2+ (A) Negative [facility] DEPARTMENT OF PATHOLOGY AND GENOMIC MEDICINE Glucose, UA Negative Negative [facility] DEPARTMENT OF PATHOLOGY AND GENOMIC MEDICINE Ketones, UA Negative Negative [facility] DEPARTMENT OF PATHOLOGY AND GENOMIC MEDICINE Bilirubin, UA Negative Negative [facility] DEPARTMENT OF PATHOLOGY AND GENOMIC MEDICINE Blood, UA Moderate (A) Negative [facility] DEPARTMENT OF PATHOLOGY AND GENOMIC MEDICINE Nitrite, UA Negative Negative [facility] DEPARTMENT OF PATHOLOGY AND GENOMIC MEDICINE Urobilinogen, UA <2.0 <2.0 [facility] DEPARTMENT OF PATHOLOGY AND GENOMIC MEDICINE Leukocyte esterase, UA Small (A) Negative [facility] DEPARTMENT OF PATHOLOGY AND GENOMIC MEDICINE WBC, UA 117 (H) 0 - 1 /HPF [facility] DEPARTMENT OF PATHOLOGY AND GENOMIC MEDICINE RBC, UA >180 (H) 0 - 1 /HPF [facility] DEPARTMENT OF PATHOLOGY AND GENOMIC MEDICINE Bacteria, UA Few None seen [facility] DEPARTMENT OF PATHOLOGY AND GENOMIC MEDICINE WBC clumps, UA Few (A) [facility] DEPARTMENT OF PATHOLOGY AND GENOMIC MEDICINE Yeast, UA None seen [facility] DEPARTMENT OF PATHOLOGY AND GENOMIC MEDICINE Yeast with pseudohyphae, UA None seen [facility] DEPARTMENT OF PATHOLOGY AND GENOMIC MEDICINE Specimen Urine Performing Organization Address City/[facility] Centercode Phone Number [facility] DEPARTMENT OF PATHOLOGY AND [address] [place] [address] GENOMIC MEDICINE Zinc level, serum (09/19/2017 1:15 AM [facility]) Zinc 74 60 - 120 ug/dL [facility] Comment: INTERPRETIVE INFORMATION: Zinc, Serum or Plasma Circulating zinc concentrations are dependent on albumin status and are depressed with malnutrition. Zinc may also be lowered with infection, inflammation, stress, oral contraceptives, and . Zinc may be elevated with zinc supplementation or fasting. Elevated zinc concentrations may interfere with copper absorption. Test developed and characteristics determined by [facility]. See Compliance Statement B: [facility]/CS Performed by [facility], [address] [place], [place] [id number] [email or web address], Loc Rodriguez MD - Lab. Director Specimen Blood Performing Organization Address [facility] [place] Phone Number [facility] [address] [place] [address] Vitamin C level, plasma (09/19/2017 1:15 AM [facility]) Vitamin C, plasma 69 23 - 114 umol/L [facility] Comment: INTERPRETIVE DATA: Vitamin C (Ascorbic Acid), [...] 0.0176. Test developed and characteristics determined by [facility]. See Compliance Statement B: [facility] Performed by [facility], [address] [place] [id number] [email or web address], Loc Rodriguez MD - Lab. Director Specimen Plasma specimen Performing Organization Address [facility] [place] Phone Number [facility] [address] [place] [address] Vitamin D 25 hydroxy level (09/19/2017 1:15 AM [facility]) Vitamin D, 25-hydroxy 25.2 (L) 30.0 - 150.0 [facility] DEPARTMENT OF Comment: ng/mL PATHOLOGY AND GENOMIC This assay reports the sum of 25-hydroxy vitamin D3 and 25-hydroxy vitamin MEDICINE D2. Reference range: 0-17 years: Deficiency: less [...] please contact lab for alternative methods. Specimen Blood Performing Organization Address City/[facility] Centercode Phone Number [facility] DEPARTMENT OF PATHOLOGY AND [address] [place] [address] Potassium level (09/18/2017 3:56 PM [facility])Only the most recent of6 resultswithin the time period is included. Potassium 4.9 3.5 - 5.0 mEq/L [facility] DEPARTMENT OF PATHOLOGY AND GENOMIC MEDICINE Specimen Plasma specimen Performing Organization Address [facility] [place] Phone Number [facility] DEPARTMENT OF PATHOLOGY AND [address] [place] [address] Phosphorus level (09/18/2017 3:56 PM [facility])Only the most recent of17 resultswithin the time period is included. Phosphorus 4.5 2.4 - 4.5 mg/dL [facility] DEPARTMENT OF PATHOLOGY AND GENOMIC MEDICINE Specimen Plasma specimen Performing Organization Address [facility] Centercode Phone Number [facility] DEPARTMENT OF PATHOLOGY AND [address] [place] [address] Ionized calcium (09/18/2017 3:56 PM [facility])Only the most recent of13 resultswithin the time period is included. pH 7.45 [facility] DEPARTMENT OF PATHOLOGY AND GENOMIC MEDICINE Ionized calcium 1.14 1.11 - 1.32 mmol/L [facility] DEPARTMENT OF PATHOLOGY AND GENOMIC MEDICINE Specimen Plasma specimen Performing Organization Address City/State/Zipcode Phone Number [facility] DEPARTMENT OF PATHOLOGY AND [address] [facility] [place] [address] GENOMIC MEDICINE Pv duplex venous lower extremity (09/18/2017 12:27 PM [facility]) Narrative Performed At [facility] Vascular Ultrasound Laboratory Lower Extremity Venous Report [address] [facility] [address], [place] [address] Pat.Name:ELSIE MENDOZA Pat.ID:[id number] .Date: 09/18/2017 Refer.MD:ALLEY SAN MD Exam Time: 11:31:00 AM Study Type:LE Venous Height:68inWeight: 199lb BSA: 2.04 m2 DOBAge:1950,67Y Sex: MALESonogrphr: Layne Poe RVT Pat. Stat.:Inpatient Room:[place] [address] TapeVol: , CPT - 4: 61223 Echo Event ID:[id number] Order ID:[id number] Reason for Study:History of DVT of the [...] Radiology Results In - 09/19/2017 3:26 PM [facility] Vascular Ultrasound Laboratory Lower Extremity Venous Report [address] [place] [address] Pat.Name: ELSIE MENDOZA Pat.ID: [id number] St.Date: 09/18/2017 Refer.MD: ALLEY SAN MD Exam Time: 11:31:00 AM Study Type:LE Venous Height: 68in Weight: 199lb BSA: 2.04 m2 Age: 1 1950,67Y Sex: MALE Sonogrphr: Layne Poe RVT Pat. Stat.:Inpatient Room: [address] Vol: , CPT - 4: [id number] Echo Event ID:[id number] Order ID: [id number] Reason for Study:History of DVT of the [...] 09/19/2017 03:25 PM Clemente Lopez MD, RPVI Performing Organization Address City/[facility] Phone Number [facility] [address] [place] [address] TRACHEOSTOMY REPLACEMENT (09/17/2017 12:24 PM ENAMEL BURNER) Narrative Performed At Long Klein MD 09/17/2017 12:29 PM Tracheostomy Replacement Date/Time: 09/16/2017 12:25 PM Performed by: LONG KLEIN. Authorized by: LONG KLEIN Consent: The procedure was performed in an emergent situation. 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 Indications: malfunction [...] immediate complications Type and screen (09/17/2017 2:30 AM ENAMEL BURNER)Only the most recent of3 resultswithin the time period is included. ABO grouping A [facility] DEPARTMENT OF PATHOLOGY AND GENOMIC MEDICINE Rh type POS [facility] DEPARTMENT OF PATHOLOGY AND GENOMIC MEDICINE Antibody screen (gel) NEG [facility] DEPARTMENT OF PATHOLOGY AND GENOMIC MEDICINE Specimen Blood Performing Organization Address City/[facility] Phone Number [facility] DEPARTMENT OF PATHOLOGY AND [address] [place] [address] [employer] MEDICINE ECG 12 lead (09/16/2017 4:48 AM ENAMEL BURNER)Only the most recent of6 resultswithin the time period is included. Ventricular rate 84 [facility] Atrial rate 84 [facility] ID interval 156 [facility] QRSD interval 102 [facility] QT interval 422 [facility] QTC interval 498 [facility] P axis 1 53 [facility] QRS axis 1 31 [facility] T wave axis 43 [facility] EKG impression Normal sinus rhythm-T wave abnormality, [facility] consider inferior ischemia-Prolonged QT-Abnormal ECG-In automated comparison with ECG of 15-SEP-2017 04:07,-No significant change was found- Performing Organization Address City/State/Zipcode Phone Number [facility] MUSE [address] [place] [address] IR Initial Feeding Tube (09/15/2017 9:47 AM ENAMEL BURNER) Narrative Performed At EXAMINATION:IR GASTROSTOMY CATHETER INITIAL PLACEMENT [facility] CLINICAL HISTORY:Insertion of PEG tube COMPARISON:None. Performing [...] then removed, and following sequential dilatation, a 16-Norwegian ALYSA gastrostomy catheter was then placed. The [...] above report Impression: Successful placement of a 16-Norwegian ALYSA gastrostomy catheter, as detailed above. Orders were written in the medical record to keep the patient NPO except medications until 8:00 AM on 09/16/2017 and to suction all contents from the gastrostomy catheter every 6 hours until 8:00 AM on 09/16/2017. If the patient is without significant abdominal pain or distention, the gastrostomy catheter may then be used. [facility]-[id number] Procedure Note [facility], Radiology Results Incoming - 09/15/2017 11:35 AM ENAMEL BURNER EXAMINATION: IR GASTROSTOMY CATHETER INITIAL PLACEMENT CLINICAL [...] then removed, and following sequential dilatation, a 16-Norwegian ALYSA gastrostomy catheter was then placed. The [...] above report Impression: Successful placement of a 16-Norwegian ALYSA gastrostomy catheter, as detailed above. Orders were written in the medical record to keep the patient NPO except medications until 8:00 AM on 09/16/2017 and to suction all contents from the gastrostomy catheter every 6 hours until 8:00 AM on 09/16/2017. If the patient is without significant abdominal pain or distention, the gastrostomy catheter may then be used. [facility]-[id number] Performing Organization Address [facility] Phone Number [facility] [address] [place] [phone] Partial thromboplastin time, activated (09/15/2017 2:12 AM ENAMEL BURNER)Only the most recent of11 resultswithin the time period is included. PTT 33.4 23.0 - 36.0 sec [facility] DEPARTMENT OF PATHOLOGY Comment: AND GENOMIC MEDICINE PTT therapeutic range for unfractionated heparin is 61.0-112.0 seconds which corresponds to Anti-Xa 0.3-0.7 U/ml. Specimen Blood Performing Organization Address [facility] [place] Phone Number [facility] DEPARTMENT OF PATHOLOGY AND [address] [place] [phone] [employer] [facility] Hemoglobin & hematocrit (09/13/2017 3:52 PM ENAMEL BURNER)Only the most recent of3 resultswithin the time period is included. HGB 9.0 (L) 14.0 - 18.0 g/dL [facility] DEPARTMENT OF PATHOLOGY AND GENOMIC MEDICINE HCT 28.7 (L) 41.0 - 51.0 % [facility] DEPARTMENT OF PATHOLOGY AND GENOMIC MEDICINE Specimen Blood Performing Organization Address [facility] [place] Phone Number [facility] DEPARTMENT OF PATHOLOGY AND [address] [place] [phone] [employer] [facility] TRACHEOSTOMY REPLACEMENT (09/13/2017 3:23 PM ENAMEL BURNER) Narrative Performed At Clementina Crabtree MD 09/13/20173:23 PM Tracheostomy Replacement Date/Time: 09/13/2017 3:19 PM Performed by: CLEMENTINA CRABTREE Authorized by: CLEMENTINA CRABTREE Consent: Verbal consent obtained. 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 Indications: malfunction [...] XR Abdomen 1 Vw Portable (09/11/2017 9:01 AM ENAMEL BURNER)Only the most recent of3 resultswithin the time period is included. Narrative Performed At EXAMINATION:XR ABDOMEN 1 VW PORTABLE [facility] CLINICAL HISTORY:Check feeding tube placement COMPARISON:September 06, 2017 FINDINGS: NG tube is no longer seen. There is a Dobbhoff feeding catheter distal to the ligament of Treitz. Persistent nonspecific distention of small bowel loops in the mid to lower abdomen. Scattered air and fecal material throughout the visualized colon IMPRESSION: Dobbhoff catheter distal to the ligament of Treitz Nonspecific distention small bowel loops [id number] Procedure Note Interface, Radiology Results Incoming - 09/11/2017 9:06 AM ENAMEL BURNER EXAMINATION: XR ABDOMEN 1 VW PORTABLE CLINICAL [...] of Treitz Nonspecific distention small bowel loops [id number] Performing Organization Address City/[facility]/Zipcode Phone Number [facility] [address] [place] [address] Ionized calcium, arterial (09/10/2017 1:15 AM ENAMEL BURNER)Only the most recent of4 resultswithin the time period is included. Ionized calcium, arterial 1.11 1.11 - 1.32 mmol/L [facility] DEPARTMENT OF PATHOLOGY AND GENOMIC MEDICINE Specimen Blood Performing Organization Address City/[facility] Phone Number [facility] DEPARTMENT OF PATHOLOGY AND [address] [place] [phone] GENOMIC MEDICINE Manual differential (09/10/2017 1:15 AM ENAMEL BURNER) Manual differential PERFORMED [facility] DEPARTMENT OF PATHOLOGY AND GENOMIC MEDICINE Neutrophils 80.0 (H) 39.0 - 69.0 % [facility] DEPARTMENT OF PATHOLOGY AND GENOMIC MEDICINE Lymphocytes 11.0 (L) 25.0 - 45.0 % [facility] DEPARTMENT OF PATHOLOGY AND GENOMIC MEDICINE Monocytes 6.0 0.0 - 10.0 % [facility] DEPARTMENT OF PATHOLOGY AND GENOMIC MEDICINE Eosinophils 2.0 0.0 - 5.0 % [facility] DEPARTMENT OF PATHOLOGY AND GENOMIC MEDICINE Basophils 1.0 0.0 - 1.0 % [facility] DEPARTMENT OF PATHOLOGY AND GENOMIC MEDICINE Metamyelocytes 0 % [facility] DEPARTMENT OF PATHOLOGY AND GENOMIC MEDICINE Promyelocytes 0 % [facility] DEPARTMENT OF PATHOLOGY AND GENOMIC MEDICINE Platelet slide review [place] adequate [facility] DEPARTMENT OF PATHOLOGY AND GENOMIC MEDICINE Anisocytosis Moderate [facility] DEPARTMENT OF PATHOLOGY AND GENOMIC MEDICINE Polychromasia Moderate [facility] DEPARTMENT OF PATHOLOGY AND GENOMIC MEDICINE Performing Organization Address City/[facility] Phone Number [facility] DEPARTMENT OF PATHOLOGY AND [address] [place] [address] Arterial blood gas (09/10/2017 1:15 AM ENAMEL BURNER)Only the most recent of5 resultswithin the time period is included. pH, arterial 7.47 (H) 7.35 - 7.45 [facility] DEPARTMENT OF PATHOLOGY AND GENOMIC MEDICINE pCO2, arterial 46 (H) 35 - 45 mmHg [facility] DEPARTMENT OF PATHOLOGY AND GENOMIC MEDICINE pO2, arterial 126 (H) 80 - 90 mmHg [facility] DEPARTMENT OF PATHOLOGY AND GENOMIC MEDICINE Bicarbonate, arterial 33.1 (H) 21.0 - 28.0 mmol/L [facility] DEPARTMENT OF PATHOLOGY AND GENOMIC MEDICINE Base excess, arterial 9 (H) -2 - 2 mEq/L [facility] DEPARTMENT OF PATHOLOGY AND GENOMIC MEDICINE O2 saturation, arterial 99 95 - 100 % [facility] DEPARTMENT OF PATHOLOGY AND GENOMIC MEDICINE Specimen Blood Performing Organization Address City/[facility] Phone Number [facility] DEPARTMENT OF PATHOLOGY AND [address] [place] [phone] [facility] Occult blood, stool (09/09/2017 10:00 AM ENAMEL BURNER) Occult blood, stool Negative for occult blood. [facility] DEPARTMENT OF PATHOLOGY Comment: AND [employer] MEDICINE Specimen Information Specimen Source: Stool Specimen Site: Not otherwise specified Specimen Stool - Not otherwise specified Performing Organization Address City/[facility] Phone Number [facility] DEPARTMENT OF PATHOLOGY AND [address] [place] [phone] [employer] MEDICINE Transfuse RBC (09/08/2017 12:29 PM ENAMEL BURNER)Urinalysis screen and microscopy, with reflex to culture (09/08/2017 11:30 AM ENAMEL BURNER) Specimen site Catheterized [facility] DEPARTMENT OF PATHOLOGY AND GENOMIC MEDICINE Color, UA Red [facility] DEPARTMENT OF PATHOLOGY AND GENOMIC MEDICINE Appearance, UA Cloudy [facility] DEPARTMENT OF PATHOLOGY AND GENOMIC MEDICINE Specific gravity, UA 1.011 1.001 - 1.035 [facility] DEPARTMENT OF PATHOLOGY AND GENOMIC MEDICINE pH, UA 6.0 5.0 - 8.5 [facility] DEPARTMENT OF PATHOLOGY AND GENOMIC MEDICINE Protein, UA 2+ (A) Negative [facility] DEPARTMENT OF PATHOLOGY AND GENOMIC MEDICINE Glucose, UA 1+ (A) Negative [facility] DEPARTMENT OF PATHOLOGY AND GENOMIC MEDICINE Ketones, UA Negative Negative [facility] DEPARTMENT OF PATHOLOGY AND GENOMIC MEDICINE Bilirubin, UA Negative Negative [facility] DEPARTMENT OF PATHOLOGY AND GENOMIC MEDICINE Blood, UA Moderate (A) Negative [facility] DEPARTMENT OF PATHOLOGY AND GENOMIC MEDICINE Nitrite, UA Negative Negative [facility] DEPARTMENT OF PATHOLOGY AND GENOMIC MEDICINE Urobilinogen, UA <2.0 <2.0 [facility] DEPARTMENT OF PATHOLOGY AND GENOMIC MEDICINE Leukocyte esterase, UA Negative Negative [facility] DEPARTMENT OF PATHOLOGY AND GENOMIC MEDICINE WBC, UA 39 (H) 0 - 1 /HPF [facility] DEPARTMENT OF PATHOLOGY AND GENOMIC MEDICINE RBC, UA >180 (H) 0 - 1 /HPF [facility] DEPARTMENT OF PATHOLOGY AND GENOMIC MEDICINE Bacteria, UA None seen None seen [facility] DEPARTMENT OF PATHOLOGY AND GENOMIC MEDICINE Yeast, UA None seen [facility] DEPARTMENT OF PATHOLOGY AND GENOMIC MEDICINE Yeast with pseudohyphae, UA None seen [facility] DEPARTMENT OF PATHOLOGY AND GENOMIC MEDICINE Specimen Urine Performing Organization Address City/[facility] Phone Number [facility] DEPARTMENT OF PATHOLOGY AND [address] [place] [phone] GENOMIC MEDICINE Gram stain (09/08/2017 11:30 AM ENAMEL BURNER) Gram stain result Few WBC's [facility] DEPARTMENT OF PATHOLOGY No organisms seen AND GENOMIC MEDICINE Comment: Specimen Information Specimen Source: Urine Specimen Site: Catheterized Specimen Urine - Catheterized Performing Organization Address City/[facility]/Zipcode Phone Number [facility] DEPARTMENT OF PATHOLOGY AND [address] [place] [phone] [facility] MEDICINE Urine culture (09/08/2017 11:30 AM ENAMEL BURNER) Urine culture isolate No growth after 2 days. [facility] DEPARTMENT OF Comment: PATHOLOGY AND GENOMIC Specimen Information MEDICINE Specimen Source: Urine Specimen Site: Catheterized Specimen Urine - Catheterized Performing Organization Address City/State/Zipcode Phone Number [facility] DEPARTMENT OF PATHOLOGY AND [address] [place] [address] GENOMIC MEDICINE Prepare RBC, 1 Units (09/06/2017 3:06 AM ENAMEL BURNER) Product name Apheresis -1 LR #1 [facility] DEPARTMENT OF PATHOLOGY AND GENOMIC MEDICINE Unit number [id number] [facility] DEPARTMENT OF PATHOLOGY AND GENOMIC MEDICINE Product code [id number] [facility] DEPARTMENT OF PATHOLOGY AND GENOMIC MEDICINE Dispense status Transfused [facility] DEPARTMENT OF PATHOLOGY AND GENOMIC MEDICINE Blood expiration date [id number] [facility] DEPARTMENT OF PATHOLOGY AND GENOMIC MEDICINE Blood type code 6200 [facility] DEPARTMENT OF PATHOLOGY AND GENOMIC MEDICINE Blood type A POSITIVE [facility] DEPARTMENT OF PATHOLOGY AND GENOMIC MEDICINE Performing Organization Address City/State/Zipcode Phone Number [facility] DEPARTMENT OF PATHOLOGY AND [address] [place] [address] GENOMIC MEDICINE after 09/06/2017 Insurance Payer Benefit Plan / Group Subscriber ID Type Phone Address MEDICARE MEDICARE PART A AND B xxxxxxxxxx [place], [place] BCBS [place]/TRAD PLAN xxxxxxxxxxxx Indemnity Advance Directives Patient has advance care planning documents on file. For more information, please contact:Alonso Garza[address] [place] [address]
[2018-09-07 12:12] LABS: Absolute Lymphocytes (CBC) 0.9 K/uL (0.7-4.9); Absolute Monocytes 0.5 K/uL (0.1-1.3); Absolute Neutrophil 5.3 K/uL (1.8-8.0); Basophils % 0.4 % (0-1.3); Eosinophils % 0.8 % (0-4.4); Hematocrit 39.9 % (39.6-49.0); Lymphocytes % 12.9 % (15.3-44.8); MPV 7.6 fL (7.6-11.3); Monocytes % 6.8 % (3.3-12.3); RBC Red Blood Cell Count 4.59 M/uL (4.33-5.43)
[2018-09-07 12:18] LABS: Protime INR 1.07
[2018-09-07] MEDS ORDERED: ONDANSETRON 4 MG/2 ML VIAL ONE ×2 (12:38→15:06)
[2018-09-07] MEDS ORDERED: MORPHINE 2 MG/ML SYR ONE ×2 (12:38→15:06)
[2018-09-07 12:50] LABS: ALT/SGPT 26 U/L (12-78); AST/SGOT 15 U/L (15-37); Albumin 3.7 g/dL (3.4-5.0); Alkaline Phosphatase 104 U/L (45-117); BUN Blood Urea Nitrogen 19 mg/dL (7-18); Bicarbonate 29 mmol/L (21-32); Bilirubin Direct 0.1 mg/dL (0-0.2); Bilirubin Total 0.4 mg/dL (0.2-1.0); Glucose Level 88 mg/dL (74-106); Magnesium 2.1 mg/dL (1.8-2.4); NT PRO-BNP 26 pg/mL (<125); Potassium 4.1 mmol/L (3.5-5.1); Sodium Level 141 mmol/L (136-145); Troponin (Emerg Dept Use Only) < 0.02 ng/mL (0.0-0.045)
--- NOTE | 2018-09-07 13:43 | RAD REPORT ---
EXAM DESCRIPTION: RAD - Pelvis - 09/07/2018 1:32 pm CLINICAL HISTORY: Fall, right hip pain COMPARISON: None. TECHNIQUE: AP imaging of the pelvis was obtained. FINDINGS: No fracture of the bony pelvis identified. Lower lumbar degenerative changes are present. SI joint degenerative changes are present mild for age. Prostatectomy clips are present along the kin or the pelvis. Arterial calcifications are present. No left proximal femur abnormality. Right femur findings are separately detailed. IMPRESSION: No fracture or suspicious findings of the bony pelvis. Right femur findings are separately detailed.
--- NOTE | 2018-09-07 13:46 | RAD REPORT ---
EXAM DESCRIPTION: RAD - Hip Right 2 View - 09/07/2018 1:32 pm CLINICAL HISTORY: Fall, right hip pain COMPARISON: None. FINDINGS: AP and cross-table lateral views were obtained. Transverse fracture of the right femoral neck is present. There is mild impaction along the medial m argin. No intertrochanteric component is identifiable. Femoral head maintains smooth rounded contour. No AVN or focal femoral head abnormality. No periarticular mass or hematoma. IMPRESSION: Transverse fracture through the right femoral neck. No pathologic component seen.
--- NOTE | 2018-09-07 13:46 | RAD REPORT ---
EXAM DESCRIPTION: RAD - Chest Single View - 09/07/2018 1:36 pm CLINICAL HISTORY: Right hip fracture, preoperative examination COMPARISON: August 15 TECHNIQUE: AP portable chest image was obtained 1334 hours in supine positioning . FINDINGS: Low lung volumes are noted. Supine positioning and shallow inspiration accentuate lung mar kings. Chronic interstitial lung disease is present. No peripheral consolidation or mass. Mild inters titial edema or infiltrate could be masked by the exam limitations. Heart size normal range for exam limitations. Vasculature is accentuated by same limitations. No measurable pleural effusion and no pn eumothorax. No acute bony abnormality seen. No acute aortic findings suspected. IMPRESSION: Chronic interstitial lung disease is present accentuated by supine positioning and shall ow inspiration. No focal mass, consolidation or pneumothorax. Early edema or infiltrate could be masked.
--- NOTE | 2018-09-07 14:34 | EDPHYS ---
Physician Documentation [facility] Name: Erick Rodriguez Age: 68 yrs Sex: Male : 1950 Arrival Date: 09/07/2018 Time: 11:19 Bed 16 Private MD: Sharad Stewart C ED Physician Madhu Porter HPI: 09/07 11:52 This 68 yrs old Male presents to ER via EMS with complaints of Fall Injury. jmm 11:52 Details of fall: The patient fell from an upright position. Onset: The symptoms/episode jmm began/occurred acutely, just prior to arrival. Associated injuries: The patient sustained right hip. This is a 68 year old male with a history of cva who presents to the ED with right hip pain after a fall which occurred just prioor to arrival. 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 Son states the patient lost balance using a cane and fell. A similar episode occurred approx 2 months ago resulting in fractures of his ribs. . Historical: - Allergies: 13:44 Sulfa (Sulfonamide Antibiotics); ls4 - Home Meds: 13:44 amlodipine 5 mg tab 1 tab BID [Active]; aspirin 81 mg Oral TbEC 1 tab once daily ls4 [Active]; hydrochlorothiazide 12.5 mg Oral tab 1 tab once daily [Active]; Lexapro 20 mg Oral tab 1 tab once daily [Active]; meclizine 12.5 mg Oral tab 1 tabs 2 times per day [Active]; ramipril 10 mg Oral cap 1 cap 2 times per day [Active]; Zocor 20 mg Oral tab 1 tab once daily [Active]; - PMHx: 13:44 Aortic valve replacement (cow); CVA; Hyperlipidemia; Hypertension; ls4 - Immunization history: Last tetanus immunization: - up to date. - Social history:: Smoking status: Patient/guardian denies using tobacco, never smoked. - Ebola Screening: : Patient negative for fever greater than or equal to 101.5 degrees Fahrenheit, and additional compatible Ebola Virus Disease symptoms Patient denies exposure to infectious person Patient denies travel to an Ebola-affected area in the 21 days before illness onset No symptoms or risks identified at this time. ROS: 11:52 Constitutional: Negative for fever, chills, and weight loss. jmm 11:52 MS/extremity: Positive for pain. 11:52 All other systems are negative. Exam: 11:52 Constitutional: This is a well developed, well nourished patient who is awake, alert, jmm and in no acute distress. Head/Face: atraumatic. Eyes: EOMI, no conjunctival erythema appreciated ENT: Moist Mucus Membranes Neck: Trachea midline, Supple Chest/axilla: Normal chest wall appearance and motion. Cardiovascular: Regular rate and rhythm. No edema appreciated Respiratory: Normal respirations, no respiratory distress appreciated Back: Normal ROM Skin: General appearance color normal 11:52 Musculoskeletal/extremity: ROM: right hip held in flexion and external rotation. 11:52 Skin: Appearance: Color: normal in color. 11:52 Neuro: Motor: is normal. 11:52 Psych: Behavior/mood is pleasant, cooperative. Vital Signs: 11:28 BP 134 / 76; Pulse 81; Resp 16; Temp 98.41(O); Pulse Ox 94% on R/A; Pain 7/10; ls4 12:47 BP 119 / 76; Pulse 80; Resp 18; Temp 98.4; Pulse Ox 92% on R/A; mh5 13:45 BP 128 / 70; Pulse 79; Resp 20; Temp 98.4(O); Pulse Ox 94% on R/A; Pain 3/10; ls4 15:02 BP 110 / 76; Pulse 79; Resp 16; Temp 98.4(O); Pulse Ox 94% on R/A; Pain 6/10; ls4 16:02 BP 134 / 79; Pulse 82; Resp 18; Temp 98.4; Pulse Ox 99% on R/A; Pain 5/10; ls4 Hayward Coma Score: 11:28 Eye Response: spontaneous(4). Verbal Response: oriented(5). Motor Response: obeys ls4 commands(6). Total: 15. Trauma Score (Adult): 11:28 Eye Response: spontaneous(1); Verbal Response: oriented(1); Motor Response: obeys ls4 commands(2); Systolic BP: > 89 mm Hg(4); Respiratory Rate: 10 to 29 per min(4); Hayward Score: 15; Trauma Score: 12 MDM: 11:45 Patient medically screened. thu 14:04 Data reviewed: vital signs, nurses notes. Counseling: I had a detailed discussion with thu the patient and/or guardian regarding: the historical points, exam findings, and any diagnostic results supporting the discharge/admit diagnosis, lab results, radiology results, the need for further work-up and treatment in the hospital. Response to treatment: the patient's symptoms have markedly improved after treatment. ED course: i discussed the patient with Dr. Roberts whom will consult on admission. I discussed the patient with Dr. Stewart whom accepted admission. . 09/07 11:46 Order name: Basic Metabolic Panel; Complete Time: 12:55 [facility] 09/07 11:46 Order name: CBC with Diff; Complete Time: 12:45 [facility] 09/07 11:46 Order name: LFT's; Complete Time: 12:55 [facility] 09/07 11:46 Order name: Magnesium; Complete Time: 12:55 [facility] 09/07 11:46 Order name: NT PRO-BNP; Complete Time: 12:55 [facility] 09/07 11:46 Order name: PT-INR; Complete Time: 12:45 [facility] 09/07 11:46 Order name: Troponin (emerg Dept Use Only); Complete Time: 12:55 [facility] 09/07 11:46 Order name: XRAY Chest (1 view); Complete Time: 13:50 [facility] 09/07 11:46 Order name: Pelvis XRAY; Complete Time: 13:50 [facility] 09/07 11:46 Order name: Hip Right 2 View XRAY; Complete Time: 13:50 [facility] 09/07 14:38 Order name: Basic Metabolic Panel [facility] 09/07 14:38 Order name: Basic Metabolic Panel [facility] 09/07 14:38 Order name: CBC with Automated Diff [facility] 09/07 14:38 Order name: CBC with Automated Diff [facility] 09/07 11:46 Order name: EKG; Complete Time: 11:47 [facility] 09/07 11:46 Order name: Cardiac monitoring; Complete Time: 12:06 [facility] 09/07 11:46 Order name: EKG - Nurse/Tech; Complete Time: 12:36 [facility] 09/07 11:46 Order name: IV Saline Lock; Complete Time: 12:06 [facility] 09/07 11:46 Order name: Labs collected and sent; Complete Time: 12:07 [facility] 09/07 11:46 Order name: O2 Per Protocol; Complete Time: 12:06 [facility] 09/07 11:46 Order name: O2 Sat Monitoring; Complete Time: 12:06 [facility] 09/07 14:38 Order name: Heart Healthy EDMS Administered Medications: 12:35 Drug: Zofran 4 mg Route: IVP; Site: left forearm; ls4 13:05 Follow up: Response: No adverse reaction; Marked relief of symptoms ls4 12:36 Drug: morphine 2 mg Route: IVP; Site: left forearm; ls4 13:05 Follow up: Response: No adverse reaction; Marked relief of symptoms ls4 15:01 Drug: morphine 2 mg Route: IVP; Site: left forearm; ls4 16:19 Follow up: Response: No adverse reaction; Marked relief of symptoms ls4 15:01 Drug: Zofran 4 mg Route: IVP; Site: left forearm; ls4 15:30 Follow up: Response: No adverse reaction; Marked relief of symptoms ls4 Disposition: 09/07/18 14:33 Hospitalization ordered by Sharad Stewart for Inpatient Admission. Preliminary diagnosis is Other fracture of unspecified femur. - Bed requested for Telemetry/MedSurg (Inpatient). - Status is Inpatient Admission. ls4 - Condition is Stable. - Problem is new. - Symptoms are unchanged. UTI on Admission? No Addendum: 09/10/2018 07:05 Co-signature as Attending Physician, Madhu Porter MD I agree with the assessment and k dr plan of care. Signatures: Dispatcher [employer] [facility] Madhu Porter MD MD [facility] Gamal Zuniga PA PA [facility] Catalina Porter Lisa, RN RN ls4 Corrections: (The following items were deleted from the chart) 09/07 15:06 14:33 Hospitalization Ordered by A Terry YU for Inpatient Admission. Preliminary eb diagnosis is Other fracture of unspecified femur. Bed requested for Telemetry/MedSurg (Inpatient). Status is Inpatient Admission. Condition is Stable. Problem is new. Symptoms are unchanged. UTI on Admission? No. [facility] 15:40 15:06 09/07/2018 14:33 Hospitalization Ordered by A Terry YU for Inpatient Admission. ls4 Preliminary diagnosis is Other fracture of unspecified femur. Bed requested for Telemetry/MedSurg (Inpatient). Status is Inpatient Admission. Condition is Stable. Problem is new. Symptoms are unchanged. UTI on Admission? No. eb 15:41 15:40 09/07/2018 14:33 Hospitalization Ordered by A Terry YU for Inpatient Admission. ls4 Preliminary diagnosis is Other fracture of unspecified femur. Bed requested for Telemetry/MedSurg (Inpatient). Status is Inpatient Admission. Condition is Stable. Problem is new. Symptoms are unchanged. UTI on Admission? No. ls4 17:21 15:41 09/07/2018 14:33 Hospitalization Ordered by A Terry YU for Inpatient Admission. ls4 Preliminary diagnosis is Other fracture of unspecified femur. Bed requested for Telemetry/MedSurg (Inpatient). Status is Inpatient Admission. Condition is Stable. Problem is new. Symptoms are unchanged. UTI on Admission? No. ls4
--- NOTE | 2018-09-07 14:34 | ER ---
Nurse's Notes [facility] Name: Erick Rodriguez Age: 68 yrs Sex: Male : 1950 Arrival Date: 09/07/2018 Time: 11:19 Bed 16 Private MD: Sharad Stewart C Diagnosis: Other fracture of unspecified femur Presentation: 09/07 11:23 Presenting complaint: Patient states: WAS WALKING WITH SON, FELL BACK AND INJURED RIGHT ls4 HIP. PAIN 10/. Care prior to arrival: None. Mechanism of Injury: Fall from standing position. 11:23 Acuity: CRISS 3 ls4 11:23 Method Of Arrival: [facility] ls4 13:37 Trauma event details: Injury occurred in the [facility]. ls4 15:03 Risk Assessment: Do you want to hurt yourself or someone else? Patient reports no ls4 desire to harm self or others. 15:03 Transition of care: patient was not received from another setting of care. Onset of ls4 symptoms was September 07, 2018. Initial Sepsis Screen: Does the patient meet any 2 criteria? No. Patient's initial sepsis screen is negative. Does the patient have a suspected source of infection? No. Patient's initial sepsis screen is negative. Trauma Activation: Not Applicable Physician: ED Physician; Name: ; Notified At: ; Arrived At: Physician: General Surgeon; Name: ; Notified At: ; Arrived At: Physician: Radiology; Name: ; Notified At: ; Arrived At: Physician: Respiratory; Name: ; Notified At: ; Arrived At: Physician: Lab; Name: ; Notified At: ; Arrived At: Historical: - Allergies: 13:44 Sulfa (Sulfonamide Antibiotics); ls4 - Home Meds: 13:44 amlodipine 5 mg tab 1 tab BID [Active]; aspirin 81 mg Oral TbEC 1 tab once daily ls4 [Active]; hydrochlorothiazide 12.5 mg Oral tab 1 tab once daily [Active]; Lexapro 20 mg Oral tab 1 tab once daily [Active]; meclizine 12.5 mg Oral tab 1 tabs 2 times per day [Active]; ramipril 10 mg Oral cap 1 cap 2 times per day [Active]; Zocor 20 mg Oral tab 1 tab once daily [Active]; - PMHx: 13:44 Aortic valve replacement (cow); CVA; Hyperlipidemia; Hypertension; ls4 - Immunization history: Last tetanus immunization: - up to date. - Social history:: Smoking status: Patient/guardian denies using tobacco, never smoked. - Ebola Screening: : Patient negative for fever greater than or equal to 101.5 degrees Fahrenheit, and additional compatible Ebola Virus Disease symptoms Patient denies exposure to infectious person Patient denies travel to an Ebola-affected area in the 21 days before illness onset No symptoms or risks identified at this time. Screenin:08 Abuse screen: Denies threats or abuse. Denies injuries from another. Tuberculosis ls4 screening: No symptoms or risk factors identified. 15:04 Nutritional screening: No deficits noted. Fall Risk Fall in past 12 months (25 points). ls4 Primary Survey: 11:20 NO uncontrolled hemorrhage observed. A: The patient is alert. Airway: patent. ls4 11:20 Breathing/Chest: Respiratory pattern: regular, Respiratory effort: spontaneous, ls4 unlabored. Circulation: Cardiac rhythm: sinus rhythm Heart tones present. Pulses: palpable right radial artery, right dorsalis pedis artery, left radial artery and left dorsalis pedis artery. Disability Alert. Exposure/Environment: There is no evidence of uncontrolled external bleeding. Obvious injury(ies) are noted at this time: RIGHT HIP PAIN. Reassessment. 12:30 Reassessment Airway Airway Patent Breathing/Chest Respiratory pattern Respiratory ls4 effort. Secondary Survey: 12:09 HEENT: No deficits noted. Gastrointestinal: No deficits noted. : No deficits noted. ls4 Musculoskeletal: Circulation, motion, and sensation intact. Capillary refill < 3 seconds, Range of motion: limited in right shoulder, right hip, right knee and right ankle Reports pain in right hip. Assessment: 11:25 General: Appears in no apparent distress. uncomfortable, Behavior is calm, cooperative. ls4 Pain: Complains of pain in right hip. Neuro: Oriented to person, place, time, situation, Mail Clerk are weak on right Weakness in right Gait is unsteady, Speech is normal, PT HAS DIFICITS FROM PREVIOUS STROKE . Respiratory: No deficits noted. GI: No deficits noted. : No signs and/or symptoms were reported regarding the genitourinary system. Derm: No deficits noted. Musculoskeletal: Circulation, motion, and sensation intact. Capillary refill < 3 seconds, Range of motion: intact in all extremities, Bony deformity noted of right hip. Vital Signs: 11:28 BP 134 / 76; Pulse 81; Resp 16; Temp 98.41(O); Pulse Ox 94% on R/A; Pain 7/10; ls4 12:47 BP 119 / 76; Pulse 80; Resp 18; Temp 98.4; Pulse Ox 92% on R/A; mh5 13:45 BP 128 / 70; Pulse 79; Resp 20; Temp 98.4(O); Pulse Ox 94% on R/A; Pain 3/10; ls4 15:02 BP 110 / 76; Pulse 79; Resp 16; Temp 98.4(O); Pulse Ox 94% on R/A; Pain 6/10; ls4 16:02 BP 134 / 79; Pulse 82; Resp 18; Temp 98.4; Pulse Ox 99% on R/A; Pain 5/10; ls4 Saman Coma Score: 11:28 Eye Response: spontaneous(4). Verbal Response: oriented(5). Motor Response: obeys ls4 commands(6). Total: 15. Trauma Score (Adult): 11:28 Eye Response: spontaneous(1); Verbal Response: oriented(1); Motor Response: obeys ls4 commands(2); Systolic BP: > 89 mm Hg(4); Respiratory Rate: 10 to 29 per min(4); Saman Score: 15; Trauma Score: 12 ED Course: 11:19 Patient arrived in ED. rg4 11:20 Sharad Stewart MD is Private Physician. rg4 11:23 Jennifer Hardwick, INDIRA is Primary Nurse. ls4 11:24 Gamal Zuniga PA is [facility] 11:24 Madhu Porter MD is Attending Physician. [facility] 11:25 Triage completed. ls4 12:08 Patient has correct armband on for positive identification. Fall risk band placed. Bed ls4 in low position. Call light in reach. Side rails up X 1. Patient maintains SpO2 saturation greater than 95% on room air. Initial lab(s) drawn, by me, sent to lab. EKG done, by nanotechnologist. furnace erector on. Pulse ox on. NIBP on. 12:08 Patient maintains SpO2 saturation greater than 95% on room air. ls4 12:10 Arm band placed on left wrist. ls4 12:32 EKG done, by nanotechnologist. reviewed by Gamal CUENCA. dt2 12:35 No provider procedures requiring assistance completed. Inserted saline lock: 20 gauge ls4 in left forearm, using aseptic technique. Blood collected. 12:35 Initial lab(s) drawn, by me, by EMS personnel. ls4 12:35 Thermoregulation: warm blanket given to patient. ls4 13:33 Pelvis XRAY In Process Unspecified. EDMS 13:33 Hip Right 2 View XRAY In Process Unspecified. EDMS 13:35 XRAY Chest (1 view) In Process Unspecified. EDMS 14:31 Sharad Stewart MD is Hospitalizing Provider. thu Administered Medications: 12:35 Drug: Zofran 4 mg Route: IVP; Site: left forearm; ls4 13:05 Follow up: Response: No adverse reaction; Marked relief of symptoms ls4 12:36 Drug: morphine 2 mg Route: IVP; Site: left forearm; ls4 13:05 Follow up: Response: No adverse reaction; Marked relief of symptoms ls4 15:01 Drug: morphine 2 mg Route: IVP; Site: left forearm; ls4 16:19 Follow up: Response: No adverse reaction; Marked relief of symptoms ls4 15:01 Drug: Zofran 4 mg Route: IVP; Site: left forearm; ls4 15:30 Follow up: Response: No adverse reaction; Marked relief of symptoms ls4 Intake: 11:28 PO: 0ml; Total: 0ml. ls4 Output: 11:28 Urine: 0ml; Total: 0ml. ls4 Outcome: 14:33 Decision to Hospitalize by Provider. thu 16:02 Admitted to Med/surg accompanied by tech, via stretcher, room 229, on monitor, with ls4 chart, Report called to CHIOMA HELLER RN 16:02 Condition: stable 16:02 Patient's length of stay in the Emergency Department was greater than 2 hours. ADMITTED TO MED SURG FOR POSSIBLE SURGERY Patient's length of stay extended due to 17:21 Patient left the ED. ls4 Signatures: Dispatcher [employer] EDGamal Orellana PA PA jmm Garcia, Rubi 4 Latoya Sosa [facility] Keyla Wilson dt2 Jennifer Hardwick, INDIRA RN ls4
[2018-09-07] MEDS ORDERED: ONDANSETRON 4 MG/2 ML VIAL IV PRN (14:36)
[2018-09-07] MEDS ORDERED: ACETAMINOPHEN 500 MG TAB PO PRN (14:36)
--- NOTE | 2018-09-07 16:15 | EKG ---
Test Date: 2018-09-07 Test Time: 12:08:14 Bioinformatician: PAULINO MEASUREMENT RESULTS: Intervals: Rate: 76 ME: 166 QRSD: 96 QT: 402 QTc: 452 [place]: P: 55 ME: 166 QRS: 11 T: 69 INTERPRETIVE STATEMENTS: Normal sinus rhythm Possible Anterior infarct, age undetermined Abnormal ECG Compared to ECG 08/02/2018 21:21:18 No significant changes Electronically Signed On 09-07-18 16:14:01 PROBATE [place]GAL by Bruce Thomas
[2018-09-07] MEDS: HYDROCODONE/APAP 5/325 MG TAB PO PRN ×2 (16:54→20:47)
[2018-09-07 17:12] VITALS: BMI 26.4
[2018-09-07] MEDS: MORPHINE 2 MG/ML SYR IV PRN ×3 (18:54→23:05)
[2018-09-08] MEDS: MORPHINE 4 MG/ML SYR IV PRN ×3 (02:33→09:49)
[2018-09-08 04:59] LABS: Absolute Lymphocytes (CBC) 1.1 K/uL (0.7-4.9); Absolute Monocytes 0.9 K/uL (0.1-1.3); Absolute Neutrophil 7.4 K/uL (1.8-8.0); Basophils % 0.4 % (0-1.3); Eosinophils % 1.7 % (0-4.4); Lymphocytes % 11.7 % (15.3-44.8); MPV 7.6 fL (7.6-11.3); Monocytes % 8.9 % (3.3-12.3); RBC Red Blood Cell Count 4.48 M/uL (4.33-5.43)
[2018-09-08 05:22] LABS: Potassium 4.1 mmol/L (3.5-5.1)
[2018-09-08] MEDS ORDERED: ONDANSETRON 4 MG/2 ML VIAL IV PRN (08:55)
[2018-09-08] MEDS: AMLODIPINE 5 MG TAB PO SCH (09:00)
[2018-09-08] MEDS ORDERED: HOME MED 1 EA UNK (Ramipril [Altace] 10 MG) PO SCH (09:00)
[2018-09-08] MEDS: D5 0.9 NS 1,000 ML IV SCH ×2 (10:00→22:20)
[2018-09-08] MEDS ORDERED: Ringers Lactate 1,000 ML IV ONE ×2 (11:39→14:22)
[2018-09-08] MEDS ORDERED: TRANEXAMIC ACID 1,000 MG in NA CHLORIDE 0.9% 50 ML IV ONE (12:04)
[2018-09-08] MEDS ORDERED: PROPOFOL 200 MG/20 ML VIAL IV ONE (12:38)
[2018-09-08] MEDS ORDERED: LIDOCAINE 2% MPF 5 ML VIAL ONE (12:39)
[2018-09-08] MEDS ORDERED: FENTANYL CITR 100 MCG/2 ML ONE (12:39)
[2018-09-08] MEDS ORDERED: ROCURONIUM 50 MG/5 ML VIAL IV ONE (12:39)
[2018-09-08] MEDS ORDERED: CEFAZOLIN 2GM (PREMIX IV) 2 GM/50 ML BAG ONE (12:43)
[2018-09-08] MEDS ORDERED: Phenylephrine HCl 10 MG/ML 1 ML VIAL ONE ×2 (12:59→13:58)
--- NOTE | 2018-09-08 13:20 | CON ---
Date of Consultation: 09/08/2018 This is my first time seeing this patient. To my knowledge, he is a 68-year-old gentleman, who has u nfortunately had a CVA in the past with some impairment of the right side. He is, however, ambulator y with a cane. He unfortunately fell yesterday injuring his right lower extremity. He was seen and examined in the emergency department, was ruled out for other injuries; however, he had significant p ain related to his right hip. X-rays were taken which demonstrated a displaced femoral neck fracture on the right. Physical Examination: All the long bones and joints were palpated without pain or crepitation with the exception of his rig ht hip, which is painful with any movement or manipulation. It was also held in a position of flexio n. At this time his family is with him and all risks, benefits, and alternatives to operative interventi on including bipolar hemiarthroplasty were discussed. They state they understand things as presented at this time, wished to proceed. All of his questions were otherwise been invited and answered. VIVEK Voice ID: [id number] Report ID: [id number]
[2018-09-08] MEDS ORDERED: KETOROLAC 30 MG/ML INJ ONE (13:23)
[2018-09-08] MEDS ORDERED: DEXAMETHASONE 10 MG/ML VIAL ONE (13:24)
[2018-09-08] MEDS ORDERED: ONDANSETRON 4 MG/2 ML VIAL ONE (13:24)
[2018-09-08] MEDS ORDERED: GLYCOPYRROLATE 0.2 MG/ML SYR ONE (13:57)
--- NOTE | 2018-09-08 13:58 | HP ---
Date of Admission: 09/08/2018 Chief Complaint: Hip pain. History Of Present Illness: This is a 68-year-old very pleasant white male patient who had a stroke about a year ago causing right-sided hemiparesis. Recently had fallen down in July 2018 and had rib fracture requiring hospital admission with pneumonia and then spent some time on the rehab floor with debility and generalized weakness. He went home from rehab, lives at home with his son, and I saw him at office day before yesterday for his followup visit and he was doing fine, had no complaints at that time. His blood pressure was running on the lower side, so we discontinued hydrochlorothiazide and lowered the dose of amlodipine. He was doing fine, otherwise, doing outpatient physical therapy. Yesterday, he was at home, and he was standing with his cane and his son was with him at that time and son went into another room to get something, and the patient all of a sudden lost his balance and fell down. He started complaining of pain in his right hip, was brought into emergency room, and was diagnosed as having right femoral neck fracture, and he was admitted to the hospital. He also reports that he did injure his right side of his chest when he fell down and has some discomfort there. No shortness of breath. No other complaints. No head injury. Allergies: TO SULFA. Medications: List reviewed. His medications include amlodipine 5 mg daily, ramipril 10 mg twice a day, simvastatin 20 mg daily, baclofen 10 mg 3 times a day, escitalopram 20 mg daily, aspirin 81 mg p.o. daily. 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 Musculoskeletal: Right hip pain. All other systems reviewed and negative. Social History: Negative for smoking and alcohol use. Family History: Significant for coronary artery disease. Past Surgical History: Bioprosthetic aortic valve replacement, August 17, 2017 , coronary artery bypass surgery, August 17, 2017, right internal carotid artery endarterectomy 2008, radiation therapy for prostate cancer 2006, and prostatectomy 2004. Past Medical History: Significant for hypertension, paroxysmal atrial fibrillation, hypothyroidism, sleep apnea, aortic valve stenosis status post bioprosthetic aortic valve, gastroesophageal reflux disease, prostate cancer, depression, hyperlipidemia, impaired fasting glucose, hypothyroidism, and stroke. Recent admission with right-sided rib fracture as a result of fall and injury and pneumonia. Physical Examination: Vital Signs: Temperature 97.8, pulse 84, respiratory rate 20, blood pressure 140/79, height 5 feet 8 inches, weight 174 pounds. General: Awake, alert, oriented, not in distress. HEENT: Head atraumatic, normocephalic. Conjunctivae nonerythematous. Sclerae white. Mouth, no thrush or edema noted. Ears/Nose, no mass, lesion, discharge noted. Neck: Supple. No JVD, lymph nodes, bruit, thyromegaly noted. Lungs: Bilateral good equal air entry. Clear to auscultation. No rhonchi. No rales. Heart: Normal heart sounds, no murmur or gallop. Abdomen: Soft, bowel sounds normal. No guarding, rigidity, tenderness, mass, hepatosplenomegaly, distention, or bruit noted. Extremities: No leg edema. No calf tenderness. Skin: No rash, ulcer, cellulitis. Lymphatics: No lymph node enlargement in neck, supraclavicular, infraclavicular region. Neuro: The patient has right-sided hemiparesis. Chest: Unremarkable. External Genitalia: Deferred. Rectal: Deferred. Musculoskeletal: Right hip is externally rotated. Laboratory Data: Pelvis x-ray no fracture of pelvis. Hip x-ray, fracture of right femoral neck fracture. Chest x-ray, no acute changes, chronic interstitial lung markings unchanged. EKG normal sinus rhythm, no acute ST-T changes. White count yesterday was 6.7, hemoglobin 13.3, platelets 308. This morning, white count 9.6, hemoglobin 13.3, and platelets 298. Yesterday, sodium 141, potassium 4.1, chloride 106, bicarb 29, BUN 19, creatinine 0.92, glucose 88. Liver function tests unremarkable. Troponin less than 0.02. This morning, sodium 140, potassium 4.1, chloride 104, bicarb 29, BUN 19, creatinine 0.99, glucose 100. Impression: 1. Right femoral neck fracture. 2. Hypertension. 3. Hyperlipidemia. 4. Hypothyroidism. 5. Gastroesophageal reflux disease. 6. Depression. 7. Stroke with right-sided hemiparesis. 8. Impaired fasting glucose. 9. Paroxysmal atrial fibrillation. 10. Prostate cancer. Plan: Admit the patient to hospital for further evaluation and management of this problem. The patient is appropriate for inpatient and is expected to spend 2 midnights in hospital. We will continue home medications per order. Keep patient n.p.o. IV fluid will be started per order and consult orthopedic surgeon, Dr. Roberts. The patient is at acceptable risk from planned hip surgery and hopefully he will have his hip surgery today. I will see him tomorrow for followup. Details and plan of treatment discussed with the patient and the patient's daughter, who was at bedside. Last night his pain medication, which was morphine 2 mg dose, was not controlling his pain, so we did increase the dose to 4 mg every 4 hours as needed, and the patient reports that this particular dose of morphine is controlling his pain very well. DAWNA/SEBASTIAN Voice ID: [id number]
[2018-09-08] MEDS ORDERED: MORPHINE 10 MG/ML VIAL ONE (14:30)
[2018-09-08] MEDS ORDERED: NEOSTIGMINE 1 MG/ML -10 ML VIAL ONE (14:30)
[2018-09-08] MEDS ORDERED: ALBUTEROL 2.5 MG/3 ML NEB SOL NEB ONE (15:39)
--- NOTE | 2018-09-08 15:56 | OP ---
Date of Procedure: 09/08/2018 Surgeon: Good Roberts MD Preoperative Diagnosis: Right femoral neck fracture, which is displaced. Postoperative Diagnosis: Right femoral neck fracture, which is displaced. Procedure: Right femoral neck bipolar hemiarthroplasty using the Biomet fracture stem, which is ceme nted. Estimated Blood Loss: 150 cc. Complications: There were no complications. Indications For Operation: Mr. Rodriguez is a 68-year-old male who unfortunately has had a CVA, which does involve his right side; however, he is ambulatory with a cane. He unfortunately fell injuring his right lower extremity. He was seen and examined in the emergency department, was ruled out for o ther injuries; however, x-rays demonstrated displaced right femoral neck fracture. All risks, benefi ts, and alternatives to this procedure were discussed both with he and his family. They state they u nderstand things as presented and wished to proceed. Description Of Procedure: The patient was taken to the operating room and placed in supine position. General anesthesia was obtained by staff. Following this, he was rolled left side down with an axi llary roll. Right lower extremity was then prepped and draped in usual sterile fashion after securin g with the hip positioners. All bony prominences were checked. A standard posterolateral incision w as taken down carefully through skin and soft tissues. Meticulous hemostasis being maintained using Bovie electrocautery. This leads to the fascia. A small stab wound was made in the fascia. The glu teal tendon was palpated and then the fascial incision was brought up to near the tip of the greater trochanter where the gluteal muscles were encountered, it is encountered gently posteriorly and sprea d with finger pressure. After the sciatic nerve was identified and protected as the external rotator s and capsule were then taken down carefully and tagged for later repair. Fragments of the femoral n aurora were removed and standard saw cut was then performed. This allowed for access to the femoral hea d which was then removed with a corkscrew, it was measured to be a size 50. The acetabulum was then cleared of any debris or soft tissues. Attention was turned back to the femur where a box sealing machine feeder was used to lateralize the entry portal, it was then subsequently reamed to near a size 12. Broaches we re then used to a size 11 with good fit. Following this, the femoral canal was then copiously irriga amee with fluid until this run clear. This was followed by placement of bone plugs at appropriate dep th. Third generation cementation technique was then used to press fit a size 9 Biomet stem, it was h eld in place and in proper version until a cement hardened. This was followed by trialing with a +3 ball, +3 ball does reduce into the acetabulum. It was brought through full range of motion, full fle xion, adduction and approximately 30 degrees of internal rotation before begins to lateral. There wa s no lateral or inferior shuck. At this time we could perhaps put in a slightly shorter hip, but I t hink the patient's primary concern at this point would be instability over exactly matching leg lengt h. Therefore, we decided to proceed with the +3, the +3 was then applied. Acetabulum was checked fo r any obstructions, it was then reduced, it was found to be stable in the above areas. Following thi s, the wound was irrigated and the external rotators and capsule were then repaired back to greater t rochanter using bone tunnels. This was again irrigated and the fascia was closed in a watertight fas hion using heavy Vicryl sutures again irrigated. The skin was closed using Vicryl followed by staple s. The patient was then placed in an Aquacel dressing and abduction pillow. He was awakened and marta en to recovery room in good condition. There were no complications. /SEBASTIAN Voice ID: [id number] Report ID: [id number]
[2018-09-08 17:21] LABS: Arterial Blood Carboxyhemoglob 1.6 % (0-1.5); Blood Gas Oxyhemoglobin 97.2 % (94-97); Blood O2 Saturation 99.5 % (92-98.5)
[2018-09-08] MEDS: RAMIPRIL 5 MG CAP PO SCH (20:40)
[2018-09-08] MEDS: CEFAZOLIN/SWI 1gm 1 GM/10 ML SYR IV SCH (20:40)
[2018-09-08] MEDS: HYDROCODONE/APAP 5/325 MG TAB PO PRN (23:23)
[2018-09-09] MEDS: D5 0.9 NS 1,000 ML IV SCH (02:29)
[2018-09-09] MEDS: HYDROCODONE/APAP 5/325 MG TAB PO PRN ×3 (05:51→20:22)
[2018-09-09] MEDS: CEFAZOLIN/SWI 1gm 1 GM/10 ML SYR IV SCH ×2 (05:51→14:14)
[2018-09-09 06:49] LABS: Absolute Lymphocytes (CBC) 0.8 K/uL (0.7-4.9); Absolute Monocytes 0.9 K/uL (0.1-1.3); Basophils % 0.3 % (0-1.3); Hematocrit 32.9 % (39.6-49.0); Lymphocytes % 7.6 % (15.3-44.8); MPV 7.8 fL (7.6-11.3); Monocytes % 8.2 % (3.3-12.3); RBC Red Blood Cell Count 3.76 M/uL (4.33-5.43)
[2018-09-09] MEDS: AMLODIPINE 5 MG TAB PO SCH (09:32)
[2018-09-09] MEDS: RAMIPRIL 5 MG CAP PO SCH ×2 (09:33→20:22)
[2018-09-09] MEDS: ENOXAPARIN 30 MG/0.3 ML SQ SCH ×2 (09:34→20:23)
[2018-09-09 11:04] LABS: Urine Appearance CLEAR; Urine Bilirubin NEGATIVE (NEG); Urine Blood NEGATIVE (NEG); Urine Color YELLOW; Urine Glucose NEGATIVE (NEG); Urine Protein NEGATIVE (NEG); Urine Specific Gravity >=1.030 (1.005-1.030); Urine Urobilinogen 0.2 mg/dL (0.2-1.0)
--- NOTE | 2018-09-09 11:11 | RAD REPORT ---
EXAM DESCRIPTION: RAD - Chest Single View - 09/09/2018 10:20 am CLINICAL HISTORY: fever, rule out pneumonia Chest pain. COMPARISON: Chest Single View dated 09/07/2018; Chest Pa And Lat (2 Views) dated 08/15/2018; Chest Pa An d Lat (2 Views) dated 08/11/2018; Chest Single View dated 08/06/2018 FINDINGS: Portable technique limits examination quality. Linear opacities are present in both lung bases, greater on the right, which may represent aspiration / developing pneumonia. The heart is mildly prominent size. Degenerative changes are present in the r ight shoulder. Evidence of incompletely healed distal right clavicle fracture seen.Sternotomy wires p resent. IMPRESSION: Linear bibasilar lung opacities are present, greater on the right, suspicious for aspira tion or developing pneumonia.
[2018-09-09 12:22] LABS: Urine Bacteria <20 /HPF (NONE SEEN); Urine Culture Reflex Order NOT NEEDED; Urine Mucus 2+ /HPF (NONE SEEN); Urine RBC NONE SEEN /HPF (NONE SEEN)
[2018-09-09] MEDS: PIPER/TAZO/NS 3.375gm 3.375 GM/100 ML BAG IVPB SCH ×2 (13:03→16:34)
[2018-09-09] MEDS: ALBUTEROL 2.5 MG/3 ML NEB SOL NEB SCH ×3 (13:13→20:00)
--- NOTE | 2018-09-09 13:47 | PN ---
Date of Progress Note: 09/09/2018 Subjective: The patient was seen this morning for followup. He was sitting at bedside with physical therapy and 2 daughters in the room. He was happy, smiling, was able to stand up with physical therapy assistant instructor apy today. Denies any complaints today. Physical Examination: Vital signs: Reviewed. He has low-grade fever with temperature of 100 degree Fahrenheit, pulse 85, respiratory rate 20, blood pressure 121/72, oxygen saturation 94% on 2 to 3 L nasal cannula oxygen. HEENT: Unremarkable. Lungs: No rhonchi. Minimum basal rales noted in right lower lung region with some bronchial breathi ng. Not using any accessory muscles of respiration. Heart: Sounds normal. Abdomen: Soft. Bowel sounds normal. No guarding, rigidity, tenderness, or distention. EXTREMITIES: No leg edema. Laboratory Data: White count 10.7, hemoglobin 11.2, platelets 307. Chest x-ray shows atelectasis ve rsus pneumonia, right lower lobe region. Urinalysis, pending. Impression: 1.Right hip fracture, status post surgery. 2.Anemia. 3.Hypertension. 4.Stroke with right-sided hemiparesis. 5.Possible pneumonia and atelectasis, right lung. Plan: We will go ahead and start the patient on nebulizer treatment using albuterol every 6 hours. Start antibiotics Zosyn per order. Continue current DVT prophylaxis and antihypertensive medications , and I will see him tomorrow for followup. We will consult rehab floor and possible discharge to go to rehab in next day or 2 days depending on his condition. The patient was encouraged to use incentive spirometer every hour. DAWNA/SEBASTIAN Voice ID: [id number] Report ID: [id number]
[2018-09-10] MEDS: MORPHINE 4 MG/ML SYR IV PRN (00:21)
[2018-09-10] MEDS ORDERED: PIPER/TAZO/NS 3.375gm 3.375 GM/100 ML BAG ONE (00:28)
[2018-09-10] MEDS: PIPER/TAZO/NS 3.375gm 3.375 GM/100 ML BAG IVPB SCH ×3 (00:38→16:34)
[2018-09-10] MEDS: ALBUTEROL 2.5 MG/3 ML NEB SOL NEB SCH ×3 (02:00→14:40)
--- NOTE | 2018-09-10 03:03 | PN ---
Date of Progress Note: 09/09/2018 The patient is seen today. He is resting comfortably in bed. His dressing is clean, dry, and intact . His hemoglobin appears to be doing well. He says he has essentially no pain, saying he has only h ad 2 pain pills. He has not been seen by Physical Therapy yet today. All of his questions have othe rwise been answered. Continue rehabilitation. Obviously, would proceed with Lovenox. /SEBASTIAN Voice ID: [id number] Report ID: [id number]
[2018-09-10] MEDS: HYDROCODONE/APAP 5/325 MG TAB PO PRN ×2 (04:08→10:00)
[2018-09-10 04:52] LABS: Absolute Lymphocytes (CBC) 1.4 K/uL (0.7-4.9); Absolute Monocytes 0.8 K/uL (0.1-1.3); Absolute Neutrophil 5.8 K/uL (1.8-8.0); Basophils % 0.4 % (0-1.3); Hematocrit 30.4 % (39.6-49.0); MPV 7.8 fL (7.6-11.3); Monocytes % 9.9 % (3.3-12.3); RBC Red Blood Cell Count 3.47 M/uL (4.33-5.43)
[2018-09-10 05:10] LABS: Potassium 3.9 mmol/L (3.5-5.1)
[2018-09-10] MEDS ORDERED: MAGNESIUM HYDROXIDE 8% 30 ML PO PRN (07:27)
[2018-09-10] MEDS ORDERED: MAGNESIUM HYDROXIDE 8% 30 ML PO ONE (07:27)
[2018-09-10] MEDS ORDERED: ALPRAZOLAM 0.25 MG TABLET PO PRN (07:28)
[2018-09-10] MEDS ORDERED: ESCITALOPRAM 20 MG TAB PO SCH (09:00)
[2018-09-10] MEDS: ENOXAPARIN 30 MG/0.3 ML SQ SCH (09:53)
[2018-09-10] MEDS: RAMIPRIL 5 MG CAP PO SCH (09:53)
[2018-09-10] MEDS: BACLOFEN 10 MG TAB PO SCH ×2 (09:54→13:41)
[2018-09-10] MEDS: AMLODIPINE 5 MG TAB PO SCH (09:54)
[2018-09-10 10:21] VITALS: O2SAT 93
[2018-09-10 17:32] VITALS: BP 115/63; TEMP 99.1
[2018-09-10] MEDS ORDERED: DOCUSATE NA/SENNA CONC 1 TAB PO SCH (21:00)
--- NOTE | 2018-09-11 16:08 | DS ---
Date of Discharge: 09/10/2018 DAILY PROGRESS NOTE Subjective: The patient is seen today. He is sitting on the bedside. He says he does have some stif fness and soreness of his right hip. His dressing is clean, dry, and intact. He does not appear to have any significant problem at this time. He is participating well with physical therapy. Continue s to be weightbearing as tolerated with posterior hip precautions. If discharged, would continue on a nticoagulation for 3 weeks, then would switch to aspirin for the next 3 weeks. Di to be removed in 2 weeks from time of surgery. /SEBASTIAN Voice ID: [id number] Report ID: [id number]
--- NOTE | 2018-09-11 18:23 | DS ---
Date of Discharge: 09/10/2018 Disposition: Transfer to go to rehab floor. Physical Examination: HEENT: Unremarkable. Lungs: Clear to auscultation. Heart: Sounds normal. Abdomen: Soft. Bowel sounds normal. No guarding, rigidity, tenderness, or distention. Extremities: No leg edema. Discharge Diagnoses: 1.Right hip femoral neck fracture. 2.Acute blood loss anemia. 3.Constipation. 4.Insomnia. 5.Hypertension. 6.Hyperlipidemia. 7.Stroke with right-sided hemiparesis. 8.Coronary artery disease. 9.Paroxysmal atrial fibrillation. 10.Aspiration pneumonia. Discharge Medications And Instructions: See copy of transfer MAR for details. Hospital Course: This is a 68-year-old male patient who was doing fine until he fell down at home an d was brought into the emergency room. After he was evaluated in the ER, he was admitted to the hosp ital with right hip femoral neck fracture. Please see dictated H and P for more information. The celia lara had surgery done day before yesterday and postoperatively, he had some hypoxia problem and when he was brought to the room from the surgery, he was on 100% oxygen and we started him on nebulizer t reatment. Blood gas was done. He was oxygenating very well and we were able to wean off his oxygen. When I saw him yesterday, I was concerned about possibility of pneumonia as he had low-grade fever and a chest x-ray was done which revealed presence of infiltrate in the right lower lobe with some at electasis. He was started on empiric antibiotic, Zosyn. This morning, when I saw him, he was feelin g much better. He started to participate well with physical therapy. His pain is under good control with pain medication. Has some constipation problem. Has not had a bowel movement since he is in [facility] and we will go ahead and give him a stool softener and laxative. Also has some trouble s leeping at night and we will start him on some medication for that. DVT prophylaxis was given to him using Lovenox. Overall, he is doing much better and we will continue to see him on a rehab floor. Rehab was consulted today, he was accepted and was transferred in much stable condition. Laboratory Data: Labs and investigation done during this hospitalization; initial white count upon a dmission was 6.7, hemoglobin 13.3, and platelets 308. Today, white count 8.1, hemoglobin 10.3, and p latelets 242. Sodium level today 140, potassium 3.9, chloride 107, bicarb 26, BUN 21, creatinine 0.9 2, glucose 92. Chest x-ray shows opacity in the right lower lobe region. DAWNA/MODL Voice ID: [id number] Report ID: [id number]
== END 2018-09-10 19:00 | DRG 469 ==
LOC: ER 11:04 → ERHOLD 14:35 → 2ND 16:03
PROVIDERS: ADMIT Internal Medicine; ATTEND Internal Medicine
PROC: 0SRR0J9 Replacement of Right Hip Joint, Femoral Surface with Synthetic Substitute, Cemented, Open Approach (ICD-10-PCS; principal; 2018-09-08 12:30)
DX: S72.091A Other fracture of head and neck of right femur, initial encounter for closed fracture (principal); J69.0 Pneumonitis due to inhalation of food and vomit; I69.351 Hemiplegia and hemiparesis following cerebral infarction affecting right dominant side; D62 Acute posthemorrhagic anemia; W01.0XXA Fall on same level from slipping, tripping and stumbling without subsequent striking against object, initial encounter; Y93.01 Activity, walking, marching and hiking; Y92.019 Unspecified place in single-family (private) house as the place of occurrence of the external cause; Z79.01 Long term (current) use of anticoagulants; Z95.2 Presence of prosthetic heart valve; I25.10 Atherosclerotic heart disease of native coronary artery without angina pectoris; Z95.1 Presence of aortocoronary bypass graft; I48.0 Paroxysmal atrial fibrillation; E03.9 Hypothyroidism, unspecified; G47.30 Sleep apnea, unspecified; K21.9 Gastro-esophageal reflux disease without esophagitis; Z85.46 Personal history of malignant neoplasm of prostate; F32.9 Major depressive disorder, single episode, unspecified; E78.5 Hyperlipidemia, unspecified; R73.01 Impaired fasting glucose; I10 Essential (primary) hypertension; K59.00 Constipation, unspecified
CPT/HCPCS: 36415; 71045; 72170; 80048; 80076; 81001; 82805; 83735; 83880; 84484; 85025; 85610; 87086; 87088; 88304; 88305; 88311; 93005; 94640; 94760; 96374; 96375; 97110; 97116; 97163; 97530; 99285; J0690; J1100; J1650; J2270; J2370; J2405; J2543; J2704; J2710; J3010

== ENCOUNTER 2018-09-10 08:43 | Inpatient (IN) | payer OTHER, BC ==
--- NOTE | 2018-09-10 13:09 | R.PREADM ---
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 REFERRING PHYSICIAN Drew Stewart REHAB FACILITY [facility] CLINICAL LIAISON Manuel Quinn PHYSICIAN REVIEWER Dr. Daniel Mane M.D. MR# [id number] NAME ELSIE MENDOZA ADDRESS [address] [facility] [id number] DATE OF 1950 AGE 68 SSN# [id number] GENDER male MARITAL STATUS RACE white ADMIT FROM 02 - [facility] PRE-HOSPITAL LIVING SETTING 01 - Home (private home/apt. board/care, assisted living, jail, transitional living) HOME TYPE AND DETAILS Type of home: single family house # of levels in the residence: 1 # of steps within the residence: 0 # of steps to enter the residence: 0 PRE-HOSPITAL LIVING WITH Family/Relatives FAMILY SUPPORT Yes PRIMARY FAMILY CONTACT NAME BARBARA TAN PRIMARY FAMILY CONTACT PHONE PHONE PRIMARY FAMILY CONTACT ON ADM.? no IS PRIMARY FAMILY CONTACT AUTH. REP.? no 1ST EMERGENCY CONTACT BARBARA TAN 1ST CONTACT PHONE PHONE 1ST CONTACT ON ADM. no IS 1ST CONTACT AUTH. REP.? no PHONE 2ND CONTACT ON ADM.? no PATIENT EMPLOYMENT STATUS Retired (for age) PATIENT EMPLOYER No Employer PAYOR INFORMATION: 1ST PAYOR NAME MEDICARE 1ST PAYOR PHONE [phone] 1ST PAYOR INJURY/ILLNESS DUE TO ACCIDENT? No ANOTHER REPUBLICAN RESPONSIBLE? No PRIMARY REHAB/ACUTE DIAGNOSIS: RIGHT FEMORAL NECK FRACTURE ONSET DATE 09/07/2018 REHAB IMPAIRMENT CATEGORY (TRAN): 07 Fracture of LE (FracLE) MEETS 60% rule AFFECTED EXTREMITIES: RLE PRIMARY DIAGNOSIS-RELATED SURGERIES: RIGT FEMORAL NECK BIPOLAR HEMIARTHROPLASTY - performed by Good Roberts on 09/08/2018 ORIF Left distal femur COMORBID REHAB/ACUTE DIAGNOSES: - N/A HYPERTENSION PAROXYSMAL ATRIAL FIBRILLATION HYPOTHYROIDISM SLEEP APNEA STROKE AORTIC VALVE STENOSIS GERD PROSTATE CANCER DEPRESSION HYPERLIPIDEMIA Impaired fasting glucose (R73.01) RIGHT SIDED RIB FRACTURE PNEUMONIA INTERVENTIONS: - Hypertension Fluid management Medications VS - Sleep Apnea 02 sats Oxygen Respiratory management - GERD Altered diet Elevation of head of bed Medications Nausea/vomiting Nighttime food/fluid restrictions Nutrition - Depression Medications Psycho/social Safety - Pneumonia Cultures Fluid management Labs Oxygen Respiratory management X-rays RISK FOR COMPLICATIONS: - Hypertension CVA Hypotension TX TIA - Sleep Apnea Anoxia BI CVA Fatigue TX - GERD Alteration in sleep Aspiration Dehydration Malnutrition Pain - Depression Serotonin side effects - Pneumonia Respiratory failure Sepsis SUMMARY OF ACUTE HOSPITALIZATION: Pt. is a 68 yo Right-handed white male. On 09/07/2018 he was admitted to [facility] with diagnosis RIGHT FEMORAL NECK F RACTURE. His impairment category is Orthopaedic Disorders 08 - Unilateral Hip Fracture (08.11). Pre-morbidly, Pt. was independent/mod-I in Sphincter Control, Transfers Control, Communication, Socia l Cognition, Self-Care, and Locomotion; and he had good Sphincter Control. Currently, he has deficits of Endurance, Safety Awareness, Transfers Control, Balance, Self-Care, and Locomotion. Pt. is now referred to [facility] for acute in-patient rehabilitation in order to maximize patient's functional independence in activities of daily living, strength, ROM, and mobi lity. Patient has realistic goal of being discharged at assistance level 6-Henny to reside at Home with Fam liana/Relatives. PAST MEDICAL HISTORY DEPRESSION GERD HYPERLIPIDEMIA HYPERTENSION HYPOTHYROIDISM Impaired fasting glucose (R73.01) PAROXYSMAL ATRIAL FIBRILLATION PNEUMONIA PROSTATE CANCER RIGHT SIDED RIB FRACTURE SLEEP APNEA STROKE PAST SURGICAL HISTORY: BIOPROSTHETIC AORTIC VALVE REPLACEMENT CABG RIGHT INTERNAL CAROTID ARTERY ENDARTERECTOMY PROSTATECTOMY MEDICATION ALLERGIES: Sulfa ENVIRONMENTAL ALLERGIES: None Known - Substance Allergies None Known - Other Allergies None Known CODE STATUS: Full code WEIGHT/HEIGHT/BMI: WEIGHT 174 lbs HEIGHT 5' 8" BMI 26.5 DIET: - Diet Type Heart Healthy - Diet - Solid Texture Regular - Diet - Liquid Texture Regular - Tube Feed N/A SKIN DIAGRAM: Incision on Right hip; extent - small; stage - NS(Not Stageable). Treatment - Per Physician's Orders. REVIEW OF SYSTEMS: - Gen Alert and awake Lying in bed No apparent distress Oriented to: person, time, and place - Vital Signs Temperature: 98.4 F SBP/DBP: 123/67 Pulse: 95 Resp: 18 Vital signs stable, afebrile - CVS RRR VITAL SIGNS Temperature: 98.4 F SBP/DBP: 123/67 Pulse: 95 Resp: 18 Vital signs stable, afebrile CURRENT SPHINCTER CONTROL: Pre-hospital bladder status: continent # of bladder accidents in the last 7 days prior to screenin Pre-hospital bowel status: continent # of bowel accidents in the last 7 days prior to screenin Last Bowel Movement Date: DETAILED CURRENT FUNCTIONAL STATUS: - Bladder accident frequency: Ind - No accidents in the past 7 days - Bowel accident frequency: Ind - No accidents in the past 7 days - Walking score based on distance walked: 0(N/A) - Wheelchair score based on distance traveled: 0(N/A) FUNCTIONAL STATUS: - Self-Care A. Eating Ind sup B. Grooming Ind sup C. Bathing Ind sup D. Dressing - Upper Ind sup E. Dressing - Lower Ind Ruddy F. Toileting Ind modA - Sphincter Control G: Bladder control Ind Ind H: Bowel control Ind Ind - Transfers Control I. Bed/Chair/Wheelchair Ind modA J. Toilet Ind modA K. Tub/Shower Ind ADNO - Locomotion L. Walk/Wheelchair (C) Ind modA L. Walk/Wheelchair (W) Ind modA M. Stairs Ind ADNO - Communication N. Comprehension (B) Ind Henny O. Expression (B) Ind Henny - Social Cognition P. Social Interaction Ind Henny Q. Problem Solving Ind Henny R. Memory Ind Henny - Endurance Poor - Balance Poor - Safety Awareness Fair CURRENT FUNC. DEFICITS: Endurance, Safety Awareness, Transfers Control, Balance, Self-Care, and Locomotion THERAPY NOTES FROM ACUTE CARE: Attached. SPECIAL NEEDS: - Safety Concerns Skin breakdown precautions needed due to skin breakdown risk PRECAUTIONS: - Posterior Hip Precaution No adduction across midline No external rotation No hip flexion >90 degrees No internal rotation No wheel chair propulsion - Weight Bearing Precaution WBAT right LE PATIENT NEEDS ACTIVE AND ONGOING THERAPEUTIC INTERVENTION OF MULTIPLE THERAPY DISCIPLINES, INCLUDING: - Occupational Therapy Evaluate and Treat. - Physical Therapy Evaluate and Treat. PATIENT NEEDS CLOSE MEDICAL SUPERVISION BY A REHABILITATION PHYSICIAN FOR: Bowel and Bladder Management Coordination of Treatment Team Medical and Co-Morbidity Management Wound Care Pain Management DVT Management PATIENT REQUIRES 24X7 REHAB NURSING FOR MEDICAL AND FUNCTIONAL MGT. OF THE FOLLOWING DEFICITS: ADL's Ambulation Bowel and Bladder Management Cognition Communication Disease Management Medication Management Patient/Family Education Providing Safe Environment Skin Integrity Transfers Pain Management PATIENT REQUIRES INTENSIVE, COORDINATED INTERDISCIPLINARY APPROACH TO REHAB: Arranging Home Equipment/Services Discharge Planning Family Intervention/Training Manager Administrative/Case Management PATIENT REHAB POTENTIAL: Expected level of measurable improvement will be of a practical value to patient's functional capacit y or adaptations to impairments Has a viable Discharge Plan Medically appropriate; condition is sufficiently stable to participate in intensive rehab program Patient is able and expected to receive 3 hours of individualized therapy daily on at least 5 of ever y 7 days Patient's prognosis for significant practical improvement within a reasonable period of time appears Good DISCHARGE PLAN: - Estimated Length of Stay (days) 14. - Consensus on plan Discharge plan has been discussed with primary caregiver. Patient/Family is in agreement with the bebo n. Primary caregiver is in agreement with the plan. - Patient/Family Goals Return home with assistance. - Planned Living Setting Upon Discharge Home, to live with Family/Relatives. RECOMMENDED CARE LEVEL: IRF RECOMMENDATION DETAILS: Recommended Admission to Comprehensive Rehabilitation Program to Increase Functional [place] SCREENER'S COMPLETENESS CONFIRMATION: - Screening Confirmation The patient data collection on this preadmission screening form is finished PHYSICIANS REVIEW AND ADMISSION DETERMINATION Admit - Based on my review of the Pre-Admission Screening results, in my medical judgment and experie nce, I concur with the findings and recommend admission to [facility], as this patient requires an IRF level of care. SIGNATURE PANEL: Clinical Liaison - [electronically] signed by Manuel Quinn on 09/10/2018 at 12:28 (LETTER STAMPING MACHINE OPERATOR) Physician Reviewer - [electronically] signed by Dr. Daniel Mane M.D. on 09/10/2018 at 13:08 (LETTER STAMPING MACHINE OPERATOR )
--- OUTSIDE RECORDS SUMMARY | 2018-09-10 19:16 | XMS REPORT | Clinical Summary ---
:1950 Author Organization [facility] Address [address] [place] [address] Care Team Providers Name Role Phone Drew [...] S/P AVR 08/17/2017 Coronary artery disease involving cheesh-na coronary artery of cheesh-na heart 08/17 without angina pectoris Post-op pain [...] (CVA), unspecified mechanism; Coronary artery disease involving cheesh-na coronary artery of cheesh-na heart without angina pectoris 09/18/2017 Orders Only Procedural Cardiology Layne Poe 08/17/2017 - Hospital Cardiac Intensive [place], Acute postoperative pulmonary insufficiency (Primary Dx); 09/19/2017 Encounter Care Alley Devries MD S/P AVR; Coronary artery disease involving cheesh-na coronary artery of cheesh-na heart without angina pectoris after 09/09/2017 Immunizations Name Dates Previously Given Next Due [...] Taken Blood Pressure 100/77 07/04/2018 1:39 PM [employer] Pulse 64 07/04/2018 1:39 PM [employer] Temperature 36.3 C (97.4 F) 11/17/2017 11:25 AM CDT Respiratory Rate 16 11/17/2017 11:25 AM CDT Oxygen Saturation 99% 11/17/2017 11:25 AM CDT Inhaled Oxygen Concentration - - Weight 77.3 kg (170 lb 6.4 oz) 11/17/2017 4:56 AM CDT Height 172.7 cm (5' 8") 10/09/2017 8:11 PM [employer] Body Mass Index 25.91 11/17/2017 4:56 AM CDT Plan of Treatment Date Type Specialty Care Team Description 10/05/2018 Clinical Support Physical Medicine and HurtTelma MD Rehabilitation [address] [facility] [address] [place] [id number] Health Maintenance Due Date Last Done Comments SHINGLES VACCINES (1 of 2) 1999 PNEUMOCOCCAL POLYSACCHARIDE VACCINE AGE 65 2014 AND OVER INFLUENZA VACCINE 03/07/2018 09/07/2017, 08/24/2017 COLON CANCER SCREENING 09/09/2027 09/09/2017 PNEUMOCOCCAL-13 Completed 09/07/2017 Implants Implanted Type Area Table And Desk Finisher Device Shelf Model / Identifier Expiration Serial / Date Lot Valve Aortic Hemo Peric Tiss W/[place] Tech Cuff 23mm Trifecta - [id number] - [id number] Cardiovascular N/A: [facility] 02/12/2021 [id number] [id number] / Implanted: Qty: 1 on 08/17/2017 by Alley San MD Implants Heart STRUCTURAL [id number] / HEART [id number] Clip Ligtng Weck Hemoclip Plus W/ Tape Ti Med - [id number] Medical Clips for N /A: N/A TELEFLEX [id number] / Implanted: 08/17/2017 (Quantity not on file) Internal Use MEDICAL / Clip Ligtng Weck Hemoclip Plus W/ Tape Ti Sm Strngpnt - [id number] Medical Clips for N/A: N/A WECK CLOSURE [id number] / Implanted: 08/17/2017 (Quantity not on file) Internal Use SYSTEMS / Clip Ligtng Weck Hemoclip Plus W/ Tape Ti Med - [id number] Medical Clips for N /A: N/A TELEFLEX [id number] / Implanted: 08/24/2017 (Quantity not on file) Internal Use MEDICAL / Patch Biosurg Selnt Fibrin Absrbl 9.5x4.8cm Tachosil - [id number] Surgical N/A : N/A JACK [id number] / Implanted: 08/17/2017 (Quantity not on file) Implants; BIOSCIENCE / Expanders; Extenders; Surgical Wires Patch Biosurg Selnt Fibrin Absrbl 9.5x4.8cm Tachosil - [id number] Surgical N/A : N/A JACK [id number] / Implanted: 08/17/2017 (Quantity not on file) Implants; BIOSCIENCE / Expanders; Extenders; Surgical Wires Patch Biosurg Selnt Fibrin Absrbl 9.5x4.8cm Tachosil - [id number] Surgical N/A : N/A JACK [id number] / Implanted: 08/17/2017 (Quantity not on file) Implants; BIOSCIENCE / Expanders; Extenders; Surgical Wires [place] Perph Vasclr Ptfe 1.2x10cm 1.65mm - [id number] Vascular Graft N/A: N/A BARD PERIPHERAL 02/01/2022 [id number] / Implanted: 08/17/2017 (Quantity not on file) VASCULAR / [id number] [place] Perph Vasclr Ptfe 1.2x10cm 1.65mm - [id number] Vascular Graft N/A: N/A BARD PERIPHERAL 06/03/2022 [id number] / Implanted: 08/17/2017 (Quantity not on file) VASCULAR / [id number] Explanted Type Area Table And Desk Finisher Device Shelf Model / Identifier Expiration Serial / Date Lot Lead Pace Galileo Mycrdl Unipol Tmpry Streamline - [id number] Cardiovascular N/A : [employer] [place] - [id number] / Implanted: 08/17/2017 (Quantity not on file) Implants N/A CARDIAC SRGRY / Lead Pace Galileo Mycrdl Unipol Tmpry Streamline - [id number] Cardiovascular N/A : [employer] [place] - 6500F / Implanted: 08/17/2017 (Quantity not on file) Implants N/A CARDIAC SRGRY / Procedures Procedure Name Priority Date/Time Associated Diagnosis Comments NC NEEDLE EMG GUIDANCE Routine 07/04/2018 1:15 Right spastic Results for this FOR CHEMODENERVATION PM [employer] hemiparesis (HCC) procedure are in the results section. NC CHEMODENERVATION 1 Routine 07/04/2018 1:15 Right spastic Results for this EXTREMITY 5 OR MORE PM [employer] hemiparesis (HCC) procedure are in MUSCLES the results section. NC NEEDLE EMG GUIDANCE Routine 04/03/2018 1:00 Right spastic Results for this FOR CHEMODENERVATION PM CDT hemiparesis procedure are in the results section. NC CHEMODENERVATION 1 Routine 04/03/2018 1:00 Right spastic Results for this EXTREMITY 5 OR MORE PM CDT hemiparesis procedure are in MUSCLES the results section. NC NEEDLE EMG GUIDANCE Routine 12/26/2017 1:15 Right spastic Results for this FOR CHEMODENERVATION PM CDT hemiparesis procedure are in the results section. NC CHEMODENERVATION ONE Routine 12/26/2017 1:15 Right spastic [...] 10/14/2017 6:53 Results for this INR AM [employer] procedure are in the results section. PROTHROMBIN TIME WITH Routine 10/13/2017 5:20 Results for this INR AM [employer] procedure are in the results section. PROTHROMBIN TIME WITH Routine 10/12/2017 4:40 Results for this INR AM [employer] procedure are in the results section. FL MODIFIED BARIUM Routine 10/11/2017 2:42 Results for this SWALLOW PM [employer] procedure are in the results section. ZZESTIMATED GFR Routine 10/11/2017 5:15 Results for this AM [employer] procedure are in the results section. PROTHROMBIN TIME WITH Routine 10/11/2017 5:15 Results for this INR AM [employer] procedure are in the results section. BASIC METABOLIC PANEL Routine 10/11/2017 5:15 Results for this AM [employer] procedure are in the results section. HC COMPLETE BLD COUNT Routine 10/11/2017 5:15 Results for this W/AUTO DIFF AM [employer] procedure are in the results section. URINALYSIS, AUTOMATED Routine 10/10/2017 5:40 Results for this WITH MICROSCOPY AM [employer] procedure are in the results section. ZZESTIMATED GFR Routine 10/10/2017 5:35 Results for this AM [employer] procedure are in the results section. PROTHROMBIN TIME WITH Routine 10/10/2017 5:35 Results for this INR AM [employer] procedure are in the results section. HC COMPLETE BLD COUNT Routine 10/10/2017 5:35 Results for this W/AUTO DIFF AM [employer] procedure are in the results section. BASIC METABOLIC PANEL Routine 10/10/2017 5:35 Results for this AM [employer] procedure are in the results section. POC GLUCOSE Routine 09/19/2017 4:18 Results for this PM [employer] procedure are in the results section. PROTHROMBIN TIME WITH STAT 09/19/2017 1:17 Results for this INR PM [employer] procedure are in the results section. POC GLUCOSE Routine 09/19/2017 12:28 Results for this PM [employer] procedure are in the results section. POC GLUCOSE Routine 09/19/2017 7:30 Results for this AM [employer] procedure are in the results section. POC GLUCOSE Routine 09/19/2017 6:02 Results for this AM [employer] procedure are in the results section. ZZESTIMATED GFR Routine 09/19/2017 1:15 Results for this AM [employer] procedure are in the results section. CBC HEMOGRAM Routine 09/19/2017 1:15 Results for this AM [employer] procedure are in the results section. BASIC METABOLIC PANEL Routine 09/19/2017 1:15 Results for this AM [employer] procedure are in the results section. MAGNESIUM LEVEL Routine 09/19/2017 1:15 Results for this AM [employer] procedure are in the results section. ZINC LEVEL, SERUM Routine 09/19/2017 1:15 Results for this AM [employer] procedure are in the results section. VITAMIN D 25 HYDROXY Routine 09/19/2017 1:15 Results for this LEVEL AM [employer] procedure are in the results section. VITAMIN C LEVEL, PLASMA Routine 09/19/2017 1:15 Results for this AM [employer] procedure are in the results section. POC GLUCOSE Routine 09/18/2017 11:39 Results for this PM [employer] procedure are in the results section. POC GLUCOSE Routine 09/18/2017 7:42 Results for this PM [employer] procedure are in the results section. POC GLUCOSE Routine 09/18/2017 4:09 Results for this PM [employer] procedure are in the results section. PHOSPHORUS LEVEL STAT 09/18/2017 3:56 Results for this PM [employer] procedure are in the results section. MAGNESIUM LEVEL STAT 09/18/2017 3:56 Results for this PM [employer] procedure are in the results section. POTASSIUM LEVEL STAT 09/18/2017 3:56 Results for this PM [employer] procedure are in the results section. IONIZED CALCIUM STAT 09/18/2017 3:56 Results for this PM [employer] procedure are in the results section. POC GLUCOSE Routine 09/18/2017 12:28 Results for this PM [employer] procedure are in the results section. US DUPLEX VENOUS LOWER STAT 09/18/2017 12:27 Results for this EXTREMITY BILATERAL PM [employer] procedure are in the results section. POC GLUCOSE Routine 09/18/2017 8:07 Results for this AM [employer] procedure are in the results section. XR CHEST 1 VW PORTABLE Routine 09/18/2017 5:37 Results for this AM [employer] procedure are in the results section. POC GLUCOSE Routine 09/18/2017 3:56 Results for this AM [employer] procedure are in the results section. ZZESTIMATED GFR Routine 09/18/2017 3:16 Results for this AM [employer] procedure are in the results section. BASIC METABOLIC PANEL Routine 09/18/2017 3:16 Results for this AM [employer] procedure are in the results section. MAGNESIUM LEVEL Routine 09/18/2017 3:16 Results for this AM [employer] procedure are in the results section. CBC HEMOGRAM Routine 09/18/2017 3:10 Results for this AM [employer] procedure are in the results section. POC GLUCOSE Routine 09/17/2017 11:34 Results for this PM [employer] procedure are in the results section. POC GLUCOSE Routine 09/17/2017 7:42 Results for this PM [employer] procedure are in the results section. POC GLUCOSE Routine 09/17/2017 3:58 Results for this PM [employer] procedure are in the results section. PHOSPHORUS LEVEL STAT 09/17/2017 2:34 Results for this PM [employer] procedure are in the results section. POTASSIUM LEVEL STAT 09/17/2017 2:34 Results for this PM [employer] procedure are in the results section. MAGNESIUM LEVEL STAT 09/17/2017 2:34 Results for this PM [employer] procedure are in the results section. IONIZED CALCIUM STAT 09/17/2017 2:34 Results for this PM [employer] procedure are in the results section. TRACHEOSTOMY REPLACEMENT Routine 09/17/2017 12:24 Acute postoperative Results for this PM [employer] pulmonary procedure are in insufficiency the results S/P AVR section. Coronary artery disease involving cheesh-na coronary artery of cheesh-na heart without angina pectoris POC GLUCOSE Routine 09/17/2017 12:04 Results for this PM [employer] procedure are in the results section. POC GLUCOSE Routine 09/17/2017 8:30 Results for this AM [employer] procedure are in the results section. POC GLUCOSE Routine 09/17/2017 3:56 Results for this AM [employer] procedure are in the results section. ZZESTIMATED GFR Routine 09/17/2017 3:01 Results for this AM [employer] procedure are in the results section. PHOSPHORUS LEVEL Routine 09/17/2017 3:01 Results for this AM [employer] procedure are in the results section. BASIC METABOLIC PANEL Routine 09/17/2017 3:01 Results for this AM [employer] procedure are in the results section. MAGNESIUM LEVEL Routine 09/17/2017 3:01 Results for this AM [employer] procedure are in the results section. CBC HEMOGRAM Routine 09/17/2017 2:30 Results for this AM [employer] procedure are in the results section. TYPE AND SCREEN Routine 09/17/2017 2:30 Results for this AM [employer] procedure are in the results section. POC GLUCOSE Routine 09/16/2017 11:20 Results for this PM [employer] procedure are in the results section. POC GLUCOSE Routine 09/16/2017 7:20 Results for this PM [employer] procedure are in the results section. POC GLUCOSE Routine 09/16/2017 4:26 Results for this PM [employer] procedure are in the results section. PHOSPHORUS LEVEL STAT 09/16/2017 3:25 Results for this PM [employer] procedure are in the results section. POTASSIUM LEVEL STAT 09/16/2017 3:25 Results for this PM [employer] procedure are in the results section. MAGNESIUM LEVEL STAT 09/16/2017 3:25 Results for this PM [employer] procedure are in the results section. IONIZED CALCIUM STAT 09/16/2017 3:25 Results for this PM [employer] procedure are in the results section. POC GLUCOSE Routine 09/16/2017 11:55 Results for this AM [employer] procedure are in the results section. POC GLUCOSE Routine 09/16/2017 8:19 Results for this AM [employer] procedure are in the results section. ECG 12-LEAD Routine 09/16/2017 4:48 Results for this AM [employer] procedure are in the results section. XR CHEST 1 VW PORTABLE Routine 09/16/2017 4:44 Results for this AM [employer] procedure are in the results section. POC GLUCOSE Routine 09/16/2017 4:00 Results for this AM [employer] procedure are in the results section. ZZESTIMATED GFR Routine 09/16/2017 1:52 Results for this AM [employer] procedure are in the results section. IONIZED CALCIUM Routine 09/16/2017 1:52 Results for this AM [employer] procedure are in the results section. PHOSPHORUS LEVEL Routine 09/16/2017 1:52 Results for this AM [employer] procedure are in the results section. MAGNESIUM LEVEL Routine 09/16/2017 1:52 Results for this AM [employer] procedure are in the results section. BASIC METABOLIC PANEL Routine 09/16/2017 1:52 Results for this AM [employer] procedure are in the results section. HC COMPLETE BLD COUNT Routine 09/16/2017 1:52 Results for this W/AUTO DIFF AM [employer] procedure are in the results section. POC GLUCOSE Routine 09/16/2017 12:21 Results for this AM [employer] procedure are in the results section. POC GLUCOSE Routine 09/15/2017 8:42 Results for this PM [employer] procedure are in the results section. POC GLUCOSE Routine 09/15/2017 3:46 Results for this PM [employer] procedure are in the results section. POC GLUCOSE Routine 09/15/2017 11:40 Results for this AM [employer] procedure are in the results section. IR GASTROSTOMY CATHETER Routine 09/15/2017 9:47 Results for this INITIAL PLACEMENT AM [employer] procedure are in the results section. POC GLUCOSE Routine 09/15/2017 7:51 Results for this AM [employer] procedure are in the results section. XR CHEST 1 VW PORTABLE Routine 09/15/2017 5:20 Results for this AM [employer] procedure are in the results section. ECG 12-LEAD Routine 09/15/2017 4:07 Results for this AM [employer] procedure are in the results section. POC GLUCOSE Routine 09/15/2017 3:48 Results for this AM [employer] procedure are in the results section. ZZESTIMATED GFR Routine 09/15/2017 2:12 Results for this AM [employer] procedure are in the results section. HC COMPLETE BLD COUNT Routine 09/15/2017 2:12 Results for this W/AUTO DIFF AM [employer] procedure are in the results section. PROTHROMBIN TIME WITH Routine 09/15/2017 2:12 Results for this INR AM [employer] procedure are in the results section. PARTIAL THROMBOPLASTIN Routine 09/15/2017 2:12 Results for this TIME (PTT) AM [employer] procedure are in the results section. IONIZED CALCIUM Routine 09/15/2017 2:12 Results for this AM [employer] procedure are in the results section. PHOSPHORUS LEVEL Routine 09/15/2017 2:12 Results for this AM [employer] procedure are in the results section. MAGNESIUM LEVEL Routine 09/15/2017 2:12 Results for this AM [employer] procedure are in the results section. BASIC METABOLIC PANEL Routine 09/15/2017 2:12 Results for this AM [employer] procedure are in the results section. POC GLUCOSE Routine 09/15/2017 12:02 Results for this AM [employer] procedure are in the results section. POC GLUCOSE Routine 09/14/2017 8:14 Results for this PM [employer] procedure are in the results section. POC GLUCOSE Routine 09/14/2017 4:12 Results for this PM [employer] procedure are in the results section. POC GLUCOSE Routine 09/14/2017 11:59 Results for this AM [employer] procedure are in the results section. POC GLUCOSE Routine 09/14/2017 8:23 Results for this AM [employer] procedure are in the results section. ECG 12-LEAD Routine 09/14/2017 4:52 Results for this AM [employer] procedure are in the results section. XR CHEST 1 VW PORTABLE Routine 09/14/2017 4:39 Results for this AM [employer] procedure are in the results section. POC GLUCOSE Routine 09/14/2017 4:12 Results for this AM [employer] procedure are in the results section. ZZESTIMATED GFR Routine 09/14/2017 2:24 Results for this AM [employer] procedure are in the results section. IONIZED CALCIUM Routine 09/14/2017 2:24 Results for this AM [employer] procedure are in the results section. PHOSPHORUS LEVEL Routine 09/14/2017 2:24 Results for this AM [employer] procedure are in the results section. MAGNESIUM LEVEL Routine 09/14/2017 2:24 Results for this AM [employer] procedure are in the results section. BASIC METABOLIC PANEL Routine 09/14/2017 2:24 Results for this AM [employer] procedure are in the results section. PARTIAL THROMBOPLASTIN Routine 09/14/2017 2:00 Results for this TIME (PTT) AM [employer] procedure are in the results section. PROTHROMBIN TIME WITH Routine 09/14/2017 2:00 Results for this INR AM [employer] procedure are in the results section. HC COMPLETE BLD COUNT Routine 09/14/2017 2:00 Results for this W/AUTO DIFF AM [employer] procedure are in the results section. POC GLUCOSE Routine 09/14/2017 1:00 Results for this AM [employer] procedure are in the results section. POC GLUCOSE Routine 09/13/2017 8:51 Results for this PM [employer] procedure are in the results section. POC GLUCOSE Routine 09/13/2017 5:02 Results for this PM [employer] procedure are in the results section. HEMOGLOBIN & HEMATOCRIT Timed 09/13/2017 3:52 Results for this PM [employer] procedure are in the results section. TRACHEOSTOMY REPLACEMENT Routine 09/13/2017 3:23 Acute postoperative Results for this PM [employer] pulmonary procedure are in insufficiency the results section. POC GLUCOSE Routine 09/13/2017 11:44 Results for this AM [employer] procedure are in the results section. POC GLUCOSE Routine 09/13/2017 8:27 Results for this AM [employer] procedure are in the results section. XR CHEST 1 VW PORTABLE Routine 09/13/2017 5:10 Results for this AM [employer] procedure are in the results section. POC GLUCOSE Routine 09/13/2017 4:38 Results for this AM [employer] procedure are in the results section. ZZESTIMATED GFR Routine 09/13/2017 1:58 Results for this AM [employer] procedure are in the results section. PROTHROMBIN TIME WITH Routine 09/13/2017 1:58 Results for this INR AM [employer] procedure are in the results section. PARTIAL THROMBOPLASTIN Routine 09/13/2017 1:58 Results for this TIME (PTT) AM [employer] procedure are in the results section. PHOSPHORUS LEVEL Routine 09/13/2017 1:58 Results for this AM [employer] procedure are in the results section. MAGNESIUM LEVEL Routine 09/13/2017 1:58 Results for this AM [employer] procedure are in the results section. IONIZED CALCIUM Routine 09/13/2017 1:58 Results for this AM [employer] procedure are in the results section. CBC HEMOGRAM Routine 09/13/2017 1:58 Results for this AM [employer] procedure are in the results section. BASIC METABOLIC PANEL Routine 09/13/2017 1:58 Results for this AM [employer] procedure are in the results section. POC GLUCOSE Routine 09/13/2017 12:27 Results for this AM [employer] procedure are in the results section. POC GLUCOSE Routine 09/12/2017 8:32 Results for this PM [employer] procedure are in the results section. POC GLUCOSE Routine 09/12/2017 6:17 Results for this PM [employer] procedure are in the results section. POC GLUCOSE Routine 09/12/2017 12:30 Results for this PM [employer] procedure are in the results section. POC GLUCOSE Routine 09/12/2017 9:12 Results for this AM [employer] procedure are in the results section. XR CHEST 1 VW PORTABLE Routine 09/12/2017 6:32 Results for this AM [employer] procedure are in the results section. POC GLUCOSE Routine 09/12/2017 4:51 Results for this AM [employer] procedure are in the results section. ZZESTIMATED GFR Routine 09/12/2017 2:10 Results for this AM [employer] procedure are in the results section. PHOSPHORUS LEVEL Routine 09/12/2017 2:10 Results for this AM [employer] procedure are in the results section. MAGNESIUM LEVEL Routine 09/12/2017 2:10 Results for this AM [employer] procedure are in the results section. IONIZED CALCIUM Routine 09/12/2017 2:10 Results for this AM [employer]ING [employer] procedure are in the results section. BASIC METABOLIC PANEL Routine 09/12/2017 2:10 Results for this AM [employer] procedure are in the results section. CBC HEMOGRAM Routine 09/12/2017 1:55 Results for this AM [employer] procedure are in the results section. TYPE AND SCREEN Routine 09/12/2017 1:55 Results for this AM [employer] procedure are in the results section. POC GLUCOSE Routine 09/11/2017 11:55 Results for this PM [employer] procedure are in the results section. POC GLUCOSE Routine 09/11/2017 7:52 Results for this PM [employer] procedure are in the results section. POC GLUCOSE Routine 09/11/2017 4:29 Results for this PM [employer] procedure are in the results section. POC GLUCOSE Routine 09/11/2017 12:34 Results for this PM [employer] procedure are in the results section. XR CHEST 1 VW PORTABLE Routine 09/11/2017 12:12 Results for this PM [employer] procedure are in the results section. XR ABDOMEN 1 VW PORTABLE Routine 09/11/2017 9:01 Results for this AM [employer] procedure are in the results section. POC GLUCOSE Routine 09/11/2017 8:42 Results for this AM [employer] procedure are in the results section. POC GLUCOSE Routine 09/11/2017 4:54 Results for this AM [employer] procedure are in the results section. ZZESTIMATED GFR Routine 09/11/2017 1:00 Results for this AM [employer] procedure are in the results section. IONIZED CALCIUM Routine 09/11/2017 1:00 Results for this AM [employer] procedure are in the results section. PHOSPHORUS LEVEL Routine 09/11/2017 1:00 Results for this AM [employer] procedure are in the results section. MAGNESIUM LEVEL Routine 09/11/2017 1:00 Results for this AM [employer] procedure are in the results section. BASIC METABOLIC PANEL Routine 09/11/2017 1:00 Results for this AM [employer] procedure are in the results section. HC COMPLETE BLD COUNT Routine 09/11/2017 1:00 Results for this W/AUTO DIFF AM [employer] procedure are in the results section. POC GLUCOSE Routine 09/11/2017 12:08 Results for this AM [employer] procedure are in the results section. POC GLUCOSE Routine 09/10/2017 7:27 Results for this PM [employer] procedure are in the results section. POC GLUCOSE Routine 09/10/2017 4:12 Results for this PM [employer] procedure are in the results section. IONIZED CALCIUM Routine 09/10/2017 3:00 Results for this PM [employer] procedure are in the results section. PHOSPHORUS LEVEL Routine 09/10/2017 3:00 Results for this PM [employer] procedure are in the results section. MAGNESIUM LEVEL Routine 09/10/2017 3:00 Results for this PM [employer] procedure are in the results section. POTASSIUM LEVEL Routine 09/10/2017 3:00 Results for this PM [employer] procedure are in the results section. POC GLUCOSE Routine 09/10/2017 12:02 Results for this PM [employer] procedure are in the results section. POC GLUCOSE Routine 09/10/2017 7:40 Results for this AM [employer] procedure are in the results section. ECG 12-LEAD Routine 09/10/2017 6:22 Results for this AM [employer] procedure are in the results section. XR CHEST 1 VW PORTABLE Routine 09/10/2017 6:04 Results for this AM [employer] procedure are in the results section. POC GLUCOSE Routine 09/10/2017 3:48 Results for this AM [employer] procedure are in the results section. ZZESTIMATED GFR Timed 09/10/2017 1:33 Results for this AM [employer] procedure are in the results section. PHOSPHORUS LEVEL Timed 09/10/2017 1:33 Results for this AM [employer] procedure are in the results section. MAGNESIUM LEVEL Timed 09/10/2017 1:33 Results for this AM [employer] procedure are in the results section. BASIC METABOLIC PANEL Timed 09/10/2017 1:33 Results for this AM [employer] procedure are in the results section. MANUAL DIFFERENTIAL Timed 09/10/2017 1:15 Results for this AM [employer] procedure are in the results section. IONIZED CALCIUM, Timed 09/10/2017 1:15 Results for this ARTERIAL AM [employer]ING [employer]PER[employer] procedure are in the results section. CBC WITH PLATELET AND Timed 09/10/2017 1:15 Results for this DIFFERENTIAL AM [employer] procedure are in the results section. ARTERIAL BLOOD GAS Timed 09/10/2017 1:15 Results for this AM [employer] procedure are in the results section. POC GLUCOSE Routine 09/09/2017 11:39 Results for this PM [employer] procedure are in the results section. POC GLUCOSE Routine 09/09/2017 7:46 Results for this PM [employer] procedure are in the results section. POC GLUCOSE Routine 09/09/2017 3:24 Results for this PM [employer] procedure are in the results section. IONIZED CALCIUM Routine 09/09/2017 3:14 Results for this PM [employer] procedure are in the results section. PHOSPHORUS LEVEL Routine 09/09/2017 3:14 Results for this PM [employer] procedure are in the results section. POTASSIUM LEVEL Routine 09/09/2017 3:14 Results for this PM [employer] procedure are in the results section. MAGNESIUM LEVEL Routine 09/09/2017 3:14 Results for this PM [employer] procedure are in the results section. POC GLUCOSE Routine 09/09/2017 11:40 Results for this AM [employer] procedure are in the results section. OCCULT BLOOD, STOOL Routine 09/09/2017 10:00 Results for this AM [employer] procedure are in the results section. POC GLUCOSE Routine 09/09/2017 7:48 Results for this AM [employer] procedure are in the results section. ECG 12-LEAD Routine 09/09/2017 6:01 Results for this AM [employer] procedure are in the results section. XR CHEST 1 VW PORTABLE Routine 09/09/2017 4:08 Results for this AM [employer] procedure are in the results section. POC GLUCOSE Routine 09/09/2017 3:38 Results for this AM [employer] procedure are in the results section. IONIZED CALCIUM, Timed 09/09/2017 1:53 Results for this ARTERIAL AM [employer] procedure are in the results section. ARTERIAL BLOOD GAS Timed 09/09/2017 1:53 Results for this AM [employer] procedure are in the results section. ZZESTIMATED GFR Timed 09/09/2017 1:41 Results for this AM [employer] procedure are in the results section. PHOSPHORUS LEVEL Timed 09/09/2017 1:41 Results for this AM [employer] procedure are in the results section. MAGNESIUM LEVEL Timed 09/09/2017 1:41 Results for this AM [employer] procedure are in the results section. BASIC METABOLIC PANEL Timed 09/09/2017 1:41 Results for this AM [employer] procedure are in the results section. PARTIAL THROMBOPLASTIN Timed 09/09/2017 1:25 Results for this TIME (PTT) AM [employer] procedure are in the results section. HC COMPLETE BLD COUNT Timed 09/09/2017 1:07 Results for this W/AUTO DIFF AM [employer] procedure are in the results section. after 09/09/2017 Results Botulinum Injection (07/04/2018 1:15 PM DIRECTOR OF [employer]ING [employer]PERATIONS) Narrative Performed At Telma Hurt MD 07/04/20185:28 PM Botulinum Injection Date/Time: 07/04/2018 1:47 PM Performed by: Telma Hurt MD Authorized by: Telma Hurt MD Consent: Consent obtained:Written Consent given by:Patient Risks discussed:Bleeding, excessive weakness, muscle atrophy, venous thrombosis and pain and discomfort Benefits discussed:Decreased muscle tightness, increased joint range of motion and decreased pain [place] protocol: Procedure explained and questions answered to [...] No Procedure details: Agent Botulinum Toxin:Dysport (lot [id number] exp 01/04/2019) Total Units Injected:1500 Dysport Medications [...] joint range of motion and decreased pain [place] protocol: Procedure explained and questions answered to [...] Date/Time: 12/26/2017 1:27 PM Performed by: TELMA HURT. Authorized by: TELMA HURT Consent: Consent obtained:Written Consent given by:Patient Risks discussed:Bleeding, excessive weakness, muscle atrophy, venous thrombosis and pain and discomfort Benefits discussed:Decreased muscle tightness, increased joint range of motion and decreased pain [place] protocol: Procedure explained and questions answered to [...] (11/16/2017 4:20 AM CDT)Only the most recent of24 resultswithin the time period is included. Prothrombin time 24.8 (H) 12.0 - 15.[address] [facility] DEPARTMENT OF PATHOLOGY AND GENOMIC MEDICINE INR 2.2 [facility] DEPARTMENT OF Comment: PATHOLOGY AND GENOMIC The International Normalized Ratio (INR) is a therapeutic MEDICINE monitoring tool for patients who are stable on oral anticoagulant therapy. An INR of 2.0-3.0 is suggested for deep vein thrombosis/pulmonary embolism. Specimen Blood Performing Organization Address City/[facility]/[place] Phone Number [facility] DEPARTMENT OF PATHOLOGY AND [address] [place] [address] POC glucose (11/13/2017 5:04 PM CDT)Only the most recent of68 resultswithin the time period is included. POC glucose 93 65 - 99 mg/dL [facility] DEPARTMENT OF PATHOLOGY AND Comment: GENOMIC MEDICINE [facility] Notified RN Meter ID: [id number] Combatant Diver Qualified: Jonel Cullen Performing Organization Address [facility]/[employer] Phone Number [facility] OF PATHOLOGY AND [address] [place] [address] CBC with platelet and differential (11/01/2017 5:05 PM CDT)Only the most recent of10 resultswithin the time period is included. WBC 7.79 4.50 - 11.00 k/uL [facility] DEPARTMENT OF PATHOLOGY AND GENOMIC MEDICINE RBC 4.22 (L) 4.40 - 6.00 m/uL [facility] DEPARTMENT OF PATHOLOGY AND GENOMIC MEDICINE HGB 11.8 (L) 14.0 - 18.0 g/dL [facility] DEPARTMENT OF PATHOLOGY AND GENOMIC MEDICINE HCT 37.9 (L) 41.0 - 51.0 % [facility] DEPARTMENT OF PATHOLOGY AND GENOMIC MEDICINE MCV 89.8 82.0 - 100.[address] [facility] DEPARTMENT OF PATHOLOGY AND GENOMIC MEDICINE MCH 28.0 27.0 - 34.[address] [facility] DEPARTMENT OF PATHOLOGY AND GENOMIC MEDICINE MCHC 31.1 31.0 - 37.0 g/dL [facility] DEPARTMENT OF PATHOLOGY AND GENOMIC MEDICINE RDW - SD 43.9 37.0 - 55.[address] [facility] DEPARTMENT OF PATHOLOGY AND GENOMIC MEDICINE MPV 9.4 8.8 - 13.[address] [facility] DEPARTMENT OF PATHOLOGY AND GENOMIC MEDICINE Platelet count 357 150 - 400 k/uL [facility] DEPARTMENT OF PATHOLOGY AND GENOMIC MEDICINE Nucleated RBC 0.00 /[address] [facility] DEPARTMENT OF PATHOLOGY AND GENOMIC MEDICINE Neutrophils 69.1 (H) 39.0 - 69.0 % [facility] DEPARTMENT OF PATHOLOGY AND GENOMIC MEDICINE Lymphocytes 20.3 (L) 25.0 - 45.0 % [facility] DEPARTMENT OF PATHOLOGY AND GENOMIC MEDICINE Monocytes 7.8 0.0 - 10.0 % [facility] DEPARTMENT OF PATHOLOGY AND GENOMIC MEDICINE Eosinophils 1.8 0.0 - 5.0 % [facility] DEPARTMENT OF PATHOLOGY AND GENOMIC MEDICINE Basophils 0.6 0.0 - 1.0 % [facility] DEPARTMENT OF PATHOLOGY AND GENOMIC MEDICINE Immature granulocytes 0.4Comment: 0.0 - 1.0 % [facility] DEPARTMENT OF "Immature PATHOLOGY AND GENOMIC granulocytes" MEDICINE (promyelocytes, myelocytes, metamyelocytes) Specimen Blood Performing Organization Address City/State/Zipcode Phone Number [facility] DEPARTMENT OF PATHOLOGY AND [address] [place] [address] [facility] Estimated GFR (11/01/2017 1:11 PM CDT)Only the most recent of15 resultswithin the time period is included. GFR Non Af Amer 67 mL/min/1.[address] [facility] DEPARTMENT OF PATHOLOGY AND GENOMIC MEDICINE GFR Af Amer 81 mL/min/1.[address] [facility] DEPARTMENT OF Comment: PATHOLOGY AND GENOMIC Chronic [...] Americans. Specimen Plasma specimen Performing Organization Address City/State/[place] Phone Number [facility] DEPARTMENT PATHOLOGY AND [address] [place] [id number] [facility] Basic metabolic panel (11/01/2017 1:11 PM CDT)Only the most recent of15 resultswithin the time period is included. Sodium 139 135 - 148 mEq/L [facility] DEPARTMENT OF PATHOLOGY AND GENOMIC MEDICINE Potassium 3.7 3.5 - 5.0 mEq/L [facility] DEPARTMENT OF PATHOLOGY AND GENOMIC MEDICINE Chloride 96 (L) 98 - 112 mEq/L [facility] DEPARTMENT OF PATHOLOGY AND GENOMIC MEDICINE CO2 29 24 - 31 mEq/L [facility] DEPARTMENT OF PATHOLOGY AND GENOMIC MEDICINE Anion gap 14 7 - 15 mEq/L [facility] DEPARTMENT OF PATHOLOGY Comment: AND GENOMIC [facility] Starting from November , anion gap calculation no longer incorporates potassium. Please note the change. BUN 18 8 - 23 mg/dL [facility] DEPARTMENT OF PATHOLOGY AND GENOMIC MEDICINE Creatinine 1.1 0.7 - 1.2 mg/dL [facility] DEPARTMENT OF PATHOLOGY AND GENOMIC MEDICINE Glucose 85 65 - 99 mg/dL [facility] DEPARTMENT OF PATHOLOGY AND GENOMIC MEDICINE Calcium 9.5 8.8 - 10.2 mg/dL [facility] DEPARTMENT OF PATHOLOGY AND GENOMIC MEDICINE Specimen Plasma specimen Performing Organization Address City/[facility]/[place] Phone Number [facility] DEPARTMENT OF PATHOLOGY AND [address] [phone] [facility] XR Chest 1 Vw Portable (10/22/2017 8:36 AM CDT)Only the most recent of10 resultswithin the time period is included. Narrative Performed At EXAMINATION:XR CHEST 1 VW PORTABLE [facility] CLINICAL HISTORY:Post ventilator COMPARISON:To a previous examination from 09/18/2017 IMPRESSION: Changes related midline sternotomy are present. The cardiomediastinal silhouette pulmonary vessels are prominent. The lungs are hypoventilated. [facility]-[id number] Procedure Note Interface, Radiology Results Incoming - 10/22/2017 10:12 AM CDT EXAMINATION: XR CHEST 1 VW PORTABLE CLINICAL HISTORY: Post ventilator COMPARISON: To a previous examination from 09/18/2017 IMPRESSION: Changes related midline sternotomy are present. The cardiomediastinal silhouette pulmonary vessels are prominent. The lungs are hypoventilated. [facility]-[id number] Performing Organization Address City/State/Zipcode Phone Number [facility] [address] [place] [address] CBC hemogram (10/22/2017 5:00 AM CDT)Only the most recent of6 resultswithin the time period is included. WBC 7.81 4.50 - 11.00 k/uL [facility] DEPARTMENT OF PATHOLOGY AND GENOMIC MEDICINE RBC 3.71 (L) 4.40 - 6.00 m/uL [facility] DEPARTMENT OF PATHOLOGY AND GENOMIC MEDICINE HGB 10.6 (L) 14.0 - 18.0 g/dL [facility] DEPARTMENT OF PATHOLOGY AND GENOMIC MEDICINE HCT 33.2 (L) 41.0 - 51.0 % [facility] DEPARTMENT OF PATHOLOGY AND GENOMIC MEDICINE MCV 89.5 82.0 - 100.[address] [facility] DEPARTMENT OF PATHOLOGY AND GENOMIC MEDICINE MCH 28.6 27.0 - 34.[address] [facility] DEPARTMENT OF PATHOLOGY AND GENOMIC MEDICINE MCHC 31.9 31.0 - 37.0 g/dL [facility] DEPARTMENT OF PATHOLOGY AND GENOMIC MEDICINE RDW - SD 43.9 37.0 - 55.[address] [facility] DEPARTMENT OF PATHOLOGY AND GENOMIC MEDICINE MPV 9.6 8.8 - 13.[address] [facility] DEPARTMENT OF PATHOLOGY AND GENOMIC MEDICINE Platelet count 302 150 - 400 k/uL [facility] DEPARTMENT OF PATHOLOGY AND GENOMIC MEDICINE Nucleated RBC 0.00 /[address] [facility] DEPARTMENT OF PATHOLOGY AND GENOMIC MEDICINE Specimen Blood Performing Organization Address City/[facility]/[place] Phone Number [facility] DEPARTMENT OF PATHOLOGY AND [address] [place] [address] GENOMIC MEDICINE Magnesium level (10/15/2017 4:00 AM CDT)Only the most recent of17 resultswithin the time period is included. Magnesium 2.2 1.6 - 2.4 mg/dL [facility] DEPARTMENT OF PATHOLOGY AND GENOMIC MEDICINE Specimen Plasma specimen Performing Organization Address City/[facility]/[place] Phone Number [facility] PATHOLOGY AND [address] [place] [address] [facility] [place] Modified Barium Swallow (10/11/2017 2:42 PM DIRECTOR OF MANUFA[employer]URING [employer]PERATIONS) Narrative Performed At EXAMINATION:[place] MODIFIED [facility]UM SWALLOW [facility] CLINICAL HISTORY:DYSPHAGIAOROPHARYNGEALHAS ATTRIBUTABLE CAUSE COMPARISON:None. Fluoroscopy time: 2.4 minutes FINDINGS: The patient was given multiple consistencies of barium. There was flash penetration with thin liquids. No aspiration. IMPRESSION: Flash penetration with thin liquids. Please refer to Speech Pathology report for further details. [facility]-[id number] Procedure Note Hm Interface, Radiology Results Incoming - 10/11/2017 3:46 PM [employer]OR OF [employer]ING [employer] EXAMINATION: [place] MODIFIED BARIUM SWALLOW CLINICAL HISTORY: DYSPHAGIA OROPHARYNGEAL HAS ATTRIBUTABLE CAUSE COMPARISON: None. Fluoroscopy time: 2.4 minutes FINDINGS: The patient was given multiple consistencies of barium. There was flash penetration with thin liquids. No aspiration. IMPRESSION: Flash penetration with thin liquids. Please refer to Speech Pathology report for further details. [facility]-[id number] Performing Organization Address [facility]/[employer] Phone Number [facility] [address] [place] [address] Urinalysis, automated with microscopy (10/10/2017 5:40 AM DIRECTOR OF MANU[employer]URING [employer]PERATIONS) Color, UA Red [facility] DEPARTMENT OF PATHOLOGY AND GENOMIC MEDICINE Appearance, UA Cloudy [facility] DEPARTMENT OF PATHOLOGY AND GENOMIC MEDICINE Specific gravity, UA 1.015 1.001 - 1.035 [facility] DEPARTMENT OF PATHOLOGY AND GENOMIC MEDICINE pH, UA 7.0 5.0 - 8.5 [facility] DEPARTMENT OF PATHOLOGY AND GENOMIC MEDICINE Protein, UA 2+ (A) Negative [facility] DEPARTMENT OF PATHOLOGY AND GENOMIC MEDICINE Glucose, UA Negative Negative [facility] DEPARTMENT OF PATHOLOGY AND GENOMIC MEDICINE Ketones, UA Negative Negative [facility] DEPARTMENT OF PATHOLOGY AND GENOMIC MEDICINE Bilirubin, UA Negative Negative [facility] DEPARTMENT OF PATHOLOGY AND GENOMIC MEDICINE Blood, UA Moderate (A) Negative [facility] DEPARTMENT OF PATHOLOGY AND GENOMIC MEDICINE Nitrite, UA Negative Negative [facility] DEPARTMENT OF PATHOLOGY AND GENOMIC MEDICINE Urobilinogen, UA <2.[address] <[address]0 [facility] DEPARTMENT OF PATHOLOGY AND GENOMIC MEDICINE Leukocyte esterase, UA Small (A) Negative [facility] DEPARTMENT OF PATHOLOGY AND GENOMIC MEDICINE WBC, UA 117 (H) 0 - 1 /HPF [facility] DEPARTMENT OF PATHOLOGY AND GENOMIC MEDICINE RBC, UA >180 (H) 0 - 1 /HPF [facility] DEPARTMENT OF PATHOLOGY AND GENOMIC MEDICINE Bacteria, UA Few None seen [facility] DEPARTMENT OF PATHOLOGY AND GENOMIC MEDICINE WBC clumps, UA Few (A) [facility] DEPARTMENT OF PATHOLOGY AND GENOMIC MEDICINE Yeast, UA None seen [facility] DEPARTMENT OF PATHOLOGY AND GENOMIC MEDICINE Yeast with pseudohyphae, UA None seen [facility] DEPARTMENT OF PATHOLOGY AND GENOMIC MEDICINE Specimen Urine Performing Organization Address City/[facility]/[employer] Phone Number [facility] DEPARTMENT OF PATHOLOGY AND [address] [place] [phone] [email or web address] [facility] Zinc level, serum (09/19/2017 1:15 AM DIRECTOR OF MANUFA[employer]URING [employer]PERATIONS) Zinc 74 60 - 120 ug/dL [facility] Comment: INTERPRETIVE INFORMATION: Zinc, Serum or Plasma Circulating zinc concentrations are dependent on albumin status and are depressed with malnutrition. Zinc may also be lowered with infection, inflammation, stress, oral contraceptives, and . Zinc may be elevated with zinc supplementation or fasting. Elevated zinc concentrations may interfere with copper absorption. Test developed and characteristics determined by [facility]. See Compliance Statement B: [employer]/CS Performed by [facility] [employer], [address] [place] [phone] [email or web address], Loc Rodriguez MD - Lab. Director Specimen Blood Performing Organization Address [facility] [place] Phone Number [facility] [address] [place] [address] Vitamin C level, plasma (09/19/2017 1:15 AM DIRECTOR OF MANUFACTURING [employer]PERATIONS) Vitamin C, plasma 69 23 - 114 umol/L [facility] Comment: INTERPRETIVE DATA: Vitamin C (Ascorbic [...] 0.0176. Test developed and characteristics determined by [facility] [employer] [facility]. See Compliance Statement B: [employer]/CS Performed by [employer] [employer], [address] [place] [phone] [email or web address], Loc Rodriguez MD - Lab. Director Specimen Plasma specimen Performing Organization Address [facility]/[employer] Phone Number [facility] [address] [place] [address] Vitamin D 25 hydroxy level (09/19/2017 1:15 AM DIRECTOR OF MANUFA[employer]URING [employer]PERATIONS) Vitamin D, 25-hydroxy 25.2 (L) 30.0 - 150.0 [facility] DEPARTMENT OF Comment: ng/mL PATHOLOGY AND GENOMIC [...] alternative methods. Specimen Blood Performing Organization Address [facility]/[employer] Phone Number [facility] DEPARTMENT OF PATHOLOGY AND [address] [place] [address] Potassium level (09/18/2017 3:56 PM DIRECTOR OF MANUFA[employer]URING [employer]PERATIONS)Only the most recent of5 resultswithin the time period is included. Potassium 4.9 3.5 - 5.0 mEq/L [facility] DEPARTMENT OF PATHOLOGY AND GENOMIC MEDICINE Specimen Plasma specimen Performing Organization Address [facility] [place] Phone Number [facility] DEPARTMENT OF PATHOLOGY AND [address] [place] [address] Phosphorus level (09/18/2017 3:56 PM DIRECTOR OF MANUFA[employer]URING [employer]PERATIONS)Only the most recent of14 resultswithin the time period is included. Phosphorus 4.5 2.4 - 4.5 mg/dL [facility] DEPARTMENT OF PATHOLOGY AND GENOMIC MEDICINE Specimen Plasma specimen Performing Organization Address [facility]/[employer] Phone Number [facility] DEPARTMENT OF PATHOLOGY AND [address] [place] [address] Ionized calcium (09/18/2017 3:56 PM DIRECTOR OF MANUFA[employer]URING [employer]PERATIONS)Only the most recent of11 resultswithin the time period is included. pH 7.45 [facility] DEPARTMENT OF PATHOLOGY AND GENOMIC MEDICINE Ionized calcium 1.14 1.11 - 1.32 mmol/L [facility] DEPARTMENT OF PATHOLOGY AND GENOMIC MEDICINE Specimen Plasma specimen Performing Organization Address [facility]/[employer] Phone Number [facility] DEPARTMENT OF PATHOLOGY AND [address] [place] [address] Pv duplex venous lower extremity (09/18/2017 12:27 PM DIRECTOR OF MANUFACTURING OPERATIONS) Narrative Performed At [facility] Lower Extremity Venous Report [address] [place] [address] [address] [address] Pat.Name:ELSIE MENDOZA Pat.ID:[id number] .Date: 09/18/2017 Refer.MD:ALLEY SAN MD Exam Time: 11:31:00 AM Study Type:LE Venous Height:68inWeight: 199lb BSA: 2.04 m2 DOBAge:1950,67Y Sex: MALESonogrphr: Layne Poe GARRETGio Pat. Stat.:Inpatient Room:[place] [address] TapeVol: , CPT - 4: 99641 Echo Event ID:[id number] Order ID:[id number] Reason for Study:History of DVT of the [...] Radiology Results In - 09/19/2017 3:26 PM DIRECTOR OF MANUFACTURING OPERATIONS [facility] Lower Extremity Venous Report [id number] [address] Pat.Name: ELSIE MENDOZA Pat.ID: [id number] .Date: 09/18/2017 Refer.MD: ALLEY SAN MD Exam Time: 11:31:00 AM Study Type:LE Venous Height: 68in Weight: 199lb BSA: 2.04 m2 Age: 1 1950,67Y Sex: MALE Sonogrphr: Layne Poe RVT Pat. Stat.:Inpatient Room: [address] Vol: , CPT - 4: 63227 Echo Event ID:[id number] Order ID: [id number] Reason for Study:History of DVT of the [...] Clemente Lopez MD, RPVI Performing Organization Address City/State/[place] Phone Number [facility] [address] [place] [address] TRACHEOSTOMY REPLACEMENT (09/17/2017 12:24 PM DIRECTOR OF MANUFACTURING OPERATIONS) Narrative Performed At Long Klein MD 09/17/2017 12:29 PM Tracheostomy Replacement Date/Time: 09/16/2017 12:25 PM Performed by: LONG KLEIN Authorized by: LONG KLEIN Consent: The procedure was performed in an emergent situation. Patient consent: the patient's understanding of the procedure matches consent given Imaging studies: imaging studies available Patient identity confirmed: arm band and hospital-assigned identification number Time out: Immediately prior to procedure a "time out" was called to verify the correct patient, procedure, equipment, unit support representative and site/side marked as required. Indications: malfunction [...] complications Type and screen (09/17/2017 2:30 AM DIRECTOR OF MANUFACTURING OPERATIONS)Only the most recent of2 resultswithin the time period is included. ABO grouping A [facility] DEPARTMENT OF PATHOLOGY AND GENOMIC MEDICINE Rh type POS [facility] DEPARTMENT OF PATHOLOGY AND GENOMIC MEDICINE Antibody screen (gel) NEG [facility] DEPARTMENT OF PATHOLOGY AND GENOMIC MEDICINE Specimen Blood Performing Organization Address [facility]/[employer] Phone Number [facility] DEPARTMENT OF PATHOLOGY AND [address] [place] [address] GENOMIC MEDICINE ECG 12 lead (09/16/2017 4:48 AM DIRECTOR OF MANUFACTURING OPERATIONS)Only the most recent of5 resultswithin the time period is included. Ventricular rate 84 [facility] Atrial rate 84 [facility] NC interval 156 [facility] QRSD interval 102 [facility] QT interval 422 [facility] QTC interval 498 [facility] P axis 1 53 [facility] QRS axis 1 31 [facility] T wave axis 43 [facility] EKG impression Normal sinus rhythm-T wave abnormality, [facility] M[facility] consider inferior ischemia-Prolonged QT-Abnormal ECG-In automated comparison with ECG of 15-SEP-2017 04:07,-No significant change was found- Performing Organization Address City/State/Zipcode Phone Number [facility] MUSE [address] [place] [address] IR Initial Feeding Tube (09/15/2017 9:47 AM DIRECTOR OF MANUFACTURING OPERATIONS) Narrative Performed At EXAMINATION:IR GASTROSTOMY CATHETER INITIAL [...] then removed, and following sequential dilatation, a 16-Micronesian ALSYA gastrostomy catheter was then placed. The retention [...] above report Impression: Successful placement of a 16-Micronesian ALYSA gastrostomy catheter, as detailed above. Orders were written in the medical record to keep the patient NPO except medications until 8:00 AM on 09/16/2017 and to suction all contents from the gastrostomy catheter every 6 hours until 8:00 AM on 09/16/2017. If the patient is without significant abdominal pain or distention, the gastrostomy catheter may then be used. [facility]-[id number] Procedure Note [facility], Radiology Results Incoming - 09/15/2017 11:35 AM DIRECTOR OF MANUFACTURING OPERATIONS EXAMINATION: IR GASTROSTOMY CATHETER INITIAL PLACEMENT CLINICAL [...] then removed, and following sequential dilatation, a 16-Micronesian ALYSA gastrostomy catheter was then placed. The [...] above report Impression: Successful placement of a 16-Micronesian ALYSA gastrostomy catheter, as detailed above. Orders were written in the medical record to keep the patient NPO except medications until 8:00 AM on 09/16/2017 and to suction all contents from the gastrostomy catheter every 6 hours until 8:00 AM on 09/16/2017. If the patient is without significant abdominal pain or distention, the gastrostomy catheter may then be used. [facility]-[id number] [facility] Organization Address City/State/Zipcode Phone Number [facility] [address] [place] [address] Partial thromboplastin time, activated (09/15/2017 2:12 AM DIRECTOR OF MANUFACTURING OPERATIONS)Only the most recent of4 resultswithin the time period is included. PTT 33.4 23.0 - 36.[address] [facility] DEPARTMENT OF PATHOLOGY Comment: AND [facility] PTT therapeutic range for unfractionated heparin is 61.0-112.0 seconds which corresponds to Anti-Xa 0.3-0.7 U/ml. Specimen Blood Performing Organization Address City/[facility]/[employer] Phone Number [facility] DEPARTMENT OF PATHOLOGY AND [address] [place] [address] [facility] Hemoglobin & hematocrit (09/13/2017 3:52 PM DIRECTOR OF MANUFACTURING OPERATIONS) HGB 9.0 (L) 14.0 - 18.0 g/dL [facility] DEPARTMENT OF PATHOLOGY AND [facility] HCT 28.7 (L) 41.0 - 51.0 % [facility] DEPARTMENT OF PATHOLOGY AND [facility] Specimen Blood Performing Organization Address City/[facility]/[employer] Phone Number [facility] DEPARTMENT OF PATHOLOGY AND [address] [place] [address] [facility] TRACHEOSTOMY REPLACEMENT (09/13/2017 3:23 PM DIRECTOR OF MANUFACTURING OPERATIONS) Narrative Performed At Clementina Crabtree MD 09/13/20173:23 [...] to verify the correct patient, procedure, equipment, unit support representative and site/side marked as required. Indications: malfunction [...] Abdomen 1 Vw Portable (09/11/2017 9:01 AM DIRECTOR OF MANUFACTURING OPERATIONS) Narrative Performed At EXAMINATION:XR ABDOMEN 1 VW [...] of [place] Nonspecific distention small bowel loops [id number] Procedure Note Interface, Radiology Results Incoming - 09/11/2017 9:06 AM DIRECTOR OF MANUFACTURING OPERATIONS EXAMINATION: XR ABDOMEN 1 VW PORTABLE CLINICAL [...] of [place] Nonspecific distention small bowel loops [id number] Performing Organization Address City/[facility]/Zipcode Phone Number [address] [address] Ionized calcium, arterial (09/10/2017 1:15 AM DIRECTOR OF MANUFACTURING OPERATIONS)Only the most recent of2 resultswithin the time period is included. Ionized calcium, arterial 1.11 1.11 - 1.32 mmol/L [facility] DEPARTMENT OF PATHOLOGY AND GENOMIC MEDICINE Specimen Blood Performing Organization Address City/[facility]/[employer] Phone Number [facility] DEPARTMENT OF PATHOLOGY AND [address] [place] [address] GENOMIC MEDICINE Manual differential (09/10/2017 1:15 AM DIRECTOR OF MANUFACTURING OPERATIONS) Manual differential PERFORMED [facility] DEPARTMENT OF PATHOLOGY AND GENOMIC MEDICINE Neutrophils 80.0 (H) 39.0 - 69.0 % [facility] DEPARTMENT OF PATHOLOGY AND GENOMIC MEDICINE Lymphocytes 11.0 (L) 25.0 - 45.0 % [facility] DEPARTMENT OF PATHOLOGY AND GENOMIC MEDICINE Monocytes 6.0 0.0 - 10.0 % [facility] DEPARTMENT OF PATHOLOGY AND GENOMIC MEDICINE Eosinophils 2.0 0.0 - 5.0 % [facility] DEPARTMENT OF PATHOLOGY AND GENOMIC MEDICINE Basophils 1.0 0.0 - 1.0 % [facility] DEPARTMENT OF PATHOLOGY AND GENOMIC MEDICINE Metamyelocytes 0 % [facility] DEPARTMENT OF PATHOLOGY AND GENOMIC MEDICINE Promyelocytes 0 % [facility] DEPARTMENT OF PATHOLOGY AND GENOMIC MEDICINE Platelet slide review Kameron adequate [facility] DEPARTMENT OF PATHOLOGY AND GENOMIC MEDICINE Anisocytosis Moderate [facility] DEPARTMENT OF PATHOLOGY AND GENOMIC MEDICINE Polychromasia Moderate [facility] DEPARTMENT OF PATHOLOGY AND GENOMIC MEDICINE Performing Organization Address City/[facility]/[employer] Phone Number [facility] DEPARTMENT OF PATHOLOGY AND [address] [place] [address] MEDICINE Arterial blood gas (09/10/2017 1:15 AM DIRECTOR OF MANUFACTURING OPERATIONS)Only the most recent of2 resultswithin the time period is included. pH, arterial 7.47 (H) 7.35 - 7.45 [facility] DEPARTMENT OF PATHOLOGY AND GENOMIC MEDICINE pCO2, arterial 46 (H) 35 - [address] [facility] DEPARTMENT OF PATHOLOGY AND GENOMIC MEDICINE pO2, arterial 126 (H) 80 - [address] [facility] DEPARTMENT OF PATHOLOGY AND GENOMIC MEDICINE Bicarbonate, arterial 33.1 (H) 21.0 - 28.0 mmol/L [facility] DEPARTMENT OF PATHOLOGY AND GENOMIC MEDICINE Base excess, arterial 9 (H) -2 - 2 mEq/L [facility] DEPARTMENT OF PATHOLOGY AND GENOMIC MEDICINE O2 saturation, arterial 99 95 - 100 % [facility] DEPARTMENT OF PATHOLOGY AND GENOMIC MEDICINE Specimen Blood Performing Organization Address City/[facility]/[employer] Phone Number [facility] DEPARTMENT OF PATHOLOGY AND [address] [place], [place] [phone] [facility] MEDICINE Occult blood, stool (09/09/2017 10:00 AM DIRECTOR OF MANUFACTURING OPERATIONS) Occult blood, stool Negative for occult blood. [facility] DEPARTMENT OF PATHOLOGY Comment: AND GENOMIC MEDICINE Specimen Information Specimen Source: Stool Specimen Site: Not otherwise specified Specimen Stool - Not otherwise specified Performing Organization Address City/State/[place] Phone Number [facility] DEPARTMENT OF PATHOLOGY AND [address] [place], [place] [phone] GENOMIC MEDICINE after 09/09/2017 Insurance Payer Benefit Plan / Group Subscriber ID Type Phone Address MEDICARE MEDICARE PART A AND B xxxxxxxxxx Medicare [place], [place] BCBS BCBS PAR/TRAD PLAN xxxxxxxxxxxx Indemnity Advance Directives Patient has advance care planning documents on file. For more information, please contact:[facility] [id number] [place] [address]
[2018-09-10] MEDS ORDERED: ACETAMINOPHEN 500 MG TAB PO PRN (19:40)
[2018-09-10] MEDS ORDERED: ALPRAZOLAM 0.25 MG TABLET PO PRN (19:43)
[2018-09-10] MEDS ORDERED: DOCUSATE NA/SENNA CONC 1 TAB PO PRN (19:46)
[2018-09-10] MEDS: HYDROCODONE/APAP 5/325 MG TAB PO PRN (20:01)
[2018-09-10 20:21] LABS: Urine Appearance CLEAR; Urine Bilirubin NEGATIVE (NEG); Urine Blood NEGATIVE (NEG); Urine Color YELLOW; Urine Glucose NEGATIVE (NEG); Urine Protein NEGATIVE (NEG); Urine Specific Gravity 1.015 (1.005-1.030)
[2018-09-10 21:00] VITALS: BMI 26.7
[2018-09-10] MEDS: BACLOFEN 10 MG TAB PO SCH (21:00)
[2018-09-10] MEDS: RAMIPRIL 5 MG CAP PO SCH (21:01)
[2018-09-10 21:03] LABS: Urine Bacteria NONE SEEN /HPF (NONE SEEN); Urine Culture Reflex Order NOT NEEDED; Urine RBC <5 /HPF (NONE SEEN)
[2018-09-10] MEDS: ALBUTEROL 2.5 MG/3 ML NEB SOL NEB SCH (21:09)
[2018-09-10] MEDS: ENOXAPARIN 30 MG/0.3 ML SQ SCH (21:33)
--- NOTE | 2018-09-11 01:22 | FAST ---
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 Daniel Mane M.D. ADMISSION DIAGNOSIS: - Orthopaedic Disorders 08 - Unilateral Hip Fracture (08.11) RIGHT FEMORAL NECK FRACTURE. EATING: Activity did not occur on this shift EATING - SCORE: 0-UNK GROOMING: Activity did not occur on this shift GROOMING - SCORE: 0-UNK BATHING: Activity did not occur on this shift BATHING - SCORE: 0-UNK DRESSING - UPPER BODY: Activity did not occur on this shift ARTICLES SCORE Total number of steps: 0 DRESSING - UPPER BODY - SCORE: 0-UNK DRESSING - LOWER BODY: Activity did not occur on this shift ARTICLES SCORE Total number of steps: 0 DRESSING - LOWER BODY - SCORE: 0-UNK TOILETING: Activity did not occur on this shift TOILETING - SCORE: 0-UNK BLADDER MANAGEMENT: BLADDER MANAGEMENT - STEP 1: Does the patient control the bladder completely and intentionally without equipment or devices or med ications, and is always continent? No. BLADDER MANAGEMENT - STEP 2: Does the patient require the assistance of a helper? Yes. BLADDER MANAGEMENT - STEP 3: How much assistance does the patient require from the helper? Patient requires contact assistance fro m the helper BLADDER MANAGEMENT - STEP 4: How much contact assistance does the patient require from the helper? Patient requires moderate mickey tance, and performs 50% to 75% of bladder management tasks - [place] positions AND holds urinal or bed albrecht BLADDER MANAGEMENT - SCORE: 3-MOD BOWEL MANAGEMENT: Activity did not occur on this shift BOWEL MANAGEMENT - SCORE: 7-IND TRANSFERS: BED, CHAIR, WHEELCHAIR: Activity did not occur on this shift TRANSFERS: BED, CHAIR, WHEELCHAIR - SCORE: 0-UNK TRANSFERS: TOILET: Activity did not occur on this shift TRANSFERS: TOILET - SCORE: 0-UNK TRANSFERS: SHOWER: Activity did not occur on this shift TRANSFERS: SHOWER - SCORE: 0-UNK TRANSFERS: TUB: Activity did not occur on this shift TRANSFERS: TUB - SCORE: 0-UNK LOCOMOTION: WALK: Activity did not occur on this shift LOCOMOTION: WALK - SCORE: 0-UNK LOCOMOTION: WHEELCHAIR: Activity did not occur on this shift LOCOMOTION: WHEELCHAIR - SCORE: 0-UNK COMPREHENSION: COMPREHENSION: TYPE: Both COMPREHENSION - STEP 1: Does the patient require help from a person or device, or need extra time to understand complex and a bstract ideas (such as current events, finances, discharge planning, medical issues, relationships, e tc)? No. COMPREHENSION - STEP 2: Does the patient need extra time, require an assistive device (such as glasses for visual comprehensi on or a hearing aid for auditory comprehension) or does s/he have mild difficulty understanding compl ex and abstract information? Yes. COMPREHENSION - SCORE: 6-ROBBY EXPRESSION EXPRESSION: TYPE: Both EXPRESSION - STEP 1: Does the patient require help from a person or device, or need extra time expressing complex and abst ract ideas (such as current events, finances, discharge planning, medical issues, relationships, etc) ? No. EXPRESSION - STEP 2: Does the patient need extra time, require an assistive device (such as augmentive communication syste m or a communication board), OR does s/he have mild difficulty expressing complex and abstract ideas (including mild dysarthria or mild word-find problems)? No. EXPRESSION - SCORE: 7-IND SOCIAL INTERACTION: SOCIAL INTERACTION - STEP 1: Does the patient require a helper to interact with others in social and therapeutic situations? No. SOCIAL INTERACTION - STEP 2: Does the patient need extra time in social situations, OR does s/he interact with staff, other patien ts, and family members ONLY in structured environments, OR does s/he require medication for social in teraction? Yes, patient needs extra time SOCIAL INTERACTION - SCORE: 6-ROBBY PROBLEM SOLVING: PROBLEM SOLVING - STEP 1: Does the patient need help from a person or device, or need extra time to solve complex problems such as managing a checking account or confronting interpersonal problems? No. PROBLEM SOLVING - STEP 2: Does the patient require extra time to make decisions or solve problems, OR does s/he have slight dif ficulty reading, initiating, or self-correcting in unfamiliar situations? Yes, patient needs extra ti me. PROBLEM SOLVING - SCORE: 6-ROBBY MEMORY: MEMORY - STEP 1: Does the patient need help from a person or device, or need extra time to remember frequently encount ered people, daily routines, and executing requests? No. MEMORY - STEP 2: Does the patient have slight difficulty recognizing frequently encountered people, daily routines, or executing requests without the need for repetition or using self-initiated or environmental cues to remember? No. MEMORY - SCORE: 7-IND SIGNATURE PANEL: The following modified sections: Eating - Score, Grooming - Score, Bathing - Score, Dressing - Upper Body - Score, Dressing - Lower Body - Score, Toileting - Score, Bladder Management - Score, Bowel Man agement - Score, Transfers: Bed, Chair, Wheelchair - Score, Transfers: Toilet - Score, Transfers: Kayla wer - Score, Transfers: Tub - Score, Locomotion: Walk - Score, Locomotion: Wheelchair - Score, Compre hension - Score, Expression - Score, Social Interaction - Score, Problem Solving - Score, Memory - Sc ore were [electronically] signed by Milly Arteaga CNA on MonSep 11 2018 01:22:06 T-0600 ([facility])
[2018-09-11] MEDS: PIPER/TAZO/NS 3.375gm 3.375 GM/100 ML BAG IVPB SCH ×3 (01:29→16:02)
[2018-09-11] MEDS: ALBUTEROL 2.5 MG/3 ML NEB SOL NEB SCH ×4 (01:30→20:00)
[2018-09-11 06:38] LABS: Absolute Lymphocytes (CBC) 1.1 K/uL (0.7-4.9); Absolute Monocytes 0.7 K/uL (0.1-1.3); Absolute Neutrophil 4.5 K/uL (1.8-8.0); Basophils % 0.7 % (0-1.3); Hematocrit 31.7 % (39.6-49.0); Lymphocytes % 16.9 % (15.3-44.8); MPV 7.5 fL (7.6-11.3); Monocytes % 10.7 % (3.3-12.3); RBC Red Blood Cell Count 3.58 M/uL (4.33-5.43)
[2018-09-11 07:01] LABS: Magnesium 2.4 mg/dL (1.8-2.4); Potassium 4.2 mmol/L (3.5-5.1); Prealbumin 16.8 mg/dL (20-40)
[2018-09-11] MEDS: HYDROCODONE/APAP 5/325 MG TAB PO PRN ×3 (07:03→19:57)
[2018-09-11] MEDS: ENOXAPARIN 30 MG/0.3 ML SQ SCH (07:03)
[2018-09-11] MEDS: MAGNESIUM HYDROXIDE 8% 30 ML PO PRN (07:38)
[2018-09-11] MEDS: RAMIPRIL 5 MG CAP PO SCH ×2 (07:39→19:57)
[2018-09-11] MEDS: ESCITALOPRAM 20 MG TAB PO SCH (07:39)
[2018-09-11] MEDS: ENOXAPARIN 40 MG/0.4 ML SQ SCH (07:41)
[2018-09-11] MEDS: AMLODIPINE 5 MG TAB PO SCH (08:00)
[2018-09-11] MEDS: BACLOFEN 10 MG TAB PO SCH ×3 (08:07→19:59)
[2018-09-11] MEDS: TRAMADOL HCL 50 MG TAB PO PRN ×2 (11:06→15:37)
--- NOTE | 2018-09-11 14:57 | FAST ---
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 Daniel Mane M.D. ADMISSION DIAGNOSIS: - Orthopaedic Disorders 08 - Unilateral Hip Fracture (08.11) RIGHT FEMORAL NECK FRACTURE. EATING: Activity did not occur on this shift EATING - SCORE: 0-UNK GROOMING: Wash, rinse, and dry face Wash, rinse, and dry hands GROOMING - STEP 1: Does the patient require the assistance of a person or device, or need extra time when grooming? Yes. GROOMING - STEP 2: Does the patient require the assistance of a helper? No. The patient only requires an assistive devic e, OR takes more than reasonable time to groom, OR there is a concern for safety as the patient groom s GROOMING - SCORE: 6-ROBBY BATHING: Abdomen Buttocks Chest Left arm Left lower leg and foot Left upper leg Perineal area Right arm Right lower leg and foot Right upper leg BATHING - STEP 1: Does the patient require the assistance of a person or device, or need extra time when bathing? Yes. BATHING - STEP 2: Does the patient require the assistance of a helper? Yes. BATHING - STEP 3: How much assistance does the patient require from the helper? More than just incidental help BATHING - STEP 4: What percent of the body parts did the patient bathe WITHOUT the helper? Less than half of the body p arts BATHING - SCORE: 2-MAX DRESSING - UPPER BODY: T-shirt/pullover shirt (four steps) ARTICLES SCORE Total number of steps: 4 DRESSING - UPPER BODY - STEP 1: Does the patient require help from a person or device, or need extra time when dressing above the meek st? Yes. DRESSING - UPPER BODY - STEP 2: Does the patient require the assistance of a helper? Yes. DRESSING - UPPER BODY - STEP 3: Does the helper touch the patient while dressing? Yes. DRESSING - UPPER BODY - STEP 4: How many of the total steps does the patient complete on his/her own? 4 DRESSING - UPPER BODY - SCORE: 4-MIN DRESSING - LOWER BODY: Elastic waist pants (three steps) Sock - Left foot (one step) Sock - Right foot (one step) Tied or buckled shoe - Left foot (two steps) Tied or buckled shoe - Right foot (two steps) Underwear (three steps) ARTICLES SCORE Total number of steps: 12 DRESSING - LOWER BODY - STEP 1: Does the patient require help from a person or device, or need extra time when dressing below the meek st? Yes. DRESSING - LOWER BODY - STEP 2: Does the patient require the assistance of a helper? Yes. DRESSING - LOWER BODY - STEP 3: Does the helper touch the patient while dressing? Yes. DRESSING - LOWER BODY - STEP 4: How many of the total steps does the patient complete on his/her own? 0 DRESSING - LOWER BODY - STEP 5: Does patient require total assistance for dressing below the waist such as the helper holding clothin g and performing basically all the activities? Yes. DRESSING - LOWER BODY - SCORE: 1-DEP TOILETING: Activity did not occur on this shift TOILETING - SCORE: 0-UNK BLADDER MANAGEMENT: Activity did not occur on this shift BLADDER MANAGEMENT - SCORE: 7-IND BOWEL MANAGEMENT: Activity did not occur on this shift BOWEL MANAGEMENT - SCORE: 7-IND TRANSFERS: BED, CHAIR, WHEELCHAIR: Activity did not occur on this shift TRANSFERS: BED, CHAIR, WHEELCHAIR - SCORE: 0-UNK TRANSFERS: TOILET: Activity did not occur on this shift TRANSFERS: TOILET - SCORE: 0-UNK TRANSFERS: SHOWER: TRANSFERS: SHOWER - STEP 1: Does the patient require the assistance of a person or device, or need extra time with shower transfe rs? Yes. TRANSFERS: SHOWER - STEP 2: Does the patient require the assistance of a helper? Yes. TRANSFERS: SHOWER - STEP 3: How much assistance does the patient require from the helper? More than incidental help TRANSFERS: SHOWER - STEP 4: How much more help does the patient require from the helper? Lifting the patient up AND down from the wheelchair onto the shower chair TRANSFERS: SHOWER - SCORE: 2-MAX TRANSFERS: TUB: Activity did not occur on this shift TRANSFERS: TUB - SCORE: 0-UNK LOCOMOTION: WALK: Activity did not occur on this shift LOCOMOTION: WALK - SCORE: 0-UNK LOCOMOTION: WHEELCHAIR: Activity did not occur on this shift LOCOMOTION: WHEELCHAIR - SCORE: 0-UNK LOCOMOTION: STAIRS: Activity did not occur on this shift LOCOMOTION: STAIRS - SCORE: 0-UNK COMPREHENSION: COMPREHENSION: TYPE: Both COMPREHENSION - STEP 1: Does the patient require help from a person or device, or need extra time to understand complex and a bstract ideas (such as current events, finances, discharge planning, medical issues, relationships, e tc)? Yes. COMPREHENSION - STEP 2: Does the patient require help to understand questions or statements about basic needs or ideas (such as hunger, thirst, sleep, safety, daily schedule, room location, or discomfort) half or more of the t madeleine? No. COMPREHENSION - STEP 3: How often does the patient need help to understand directions and conversation about basic needs? Les s than 10% of the time COMPREHENSION - SCORE: 5-SUP EXPRESSION EXPRESSION: TYPE: Both EXPRESSION - STEP 1: Does the patient require help from a person or device, or need extra time expressing complex and abst ract ideas (such as current events, finances, discharge planning, medical issues, relationships, etc) ? Yes. EXPRESSION - STEP 2: Does the patient require help to express basic necessities or ideas (such as hunger, thirst, sleep, s afety, daily schedule, room location, or discomfort) half or more of the time? No. EXPRESSION - STEP 3: How often does the patient need help to express directions and conversation about basic needs? Less t watt 10% of the time EXPRESSION - SCORE: 5-SUP SOCIAL INTERACTION: SOCIAL INTERACTION - STEP 1: Does the patient require a helper to interact with others in social and therapeutic situations? No. SOCIAL INTERACTION - STEP 2: Does the patient need extra time in social situations, OR does s/he interact with staff, other patien ts, and family members ONLY in structured environments, OR does s/he require medication for social in teraction? Yes, patient requires medication for social interaction SOCIAL INTERACTION - SCORE: 6-ROBBY PROBLEM SOLVING: PROBLEM SOLVING - STEP 1: Does the patient need help from a person or device, or need extra time to solve complex problems such as managing a checking account or confronting interpersonal problems? Yes. PROBLEM SOLVING - STEP 2: Does the patient solve basic routine problems half or more of the time? Yes. PROBLEM SOLVING - STEP 3: How often does the patient need help to solve basic routine problems? 10%-24% of the time PROBLEM SOLVING - SCORE: 4-MIN MEMORY: MEMORY - STEP 1: Does the patient need help from a person or device, or need extra time to remember frequently encount ered people, daily routines, and executing requests? Yes. MEMORY - STEP 2: How often does the patient need help to remember frequently encountered people, daily routines, and e xecuting requests? 10% - 24% of the time MEMORY - SCORE: 4-MIN SIGNATURE PANEL: The following modified sections: Eating - Score, Grooming - Score, Bathing - Score, Dressing - Upper Body - Score, Dressing - Lower Body - Score, Toileting - Score, Transfers: Bed, Chair, Wheelchair - S core, Transfers: Toilet - Score, Transfers: Tub - Score, Transfers: Shower - Score, Comprehension - S core, Expression - Score, Social Interaction - Score, Problem Solving - Score, Memory - Score were [e lectronically] signed by Melissa Shelton OT on MonSep 11 2018 14:56:24 T-0600 (Central Standard T madeleine)
--- NOTE | 2018-09-11 15:21 | FAST ---
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 Daniel Mane M.D. ADMISSION DIAGNOSIS: - Orthopaedic Disorders 08 - Unilateral Hip Fracture (08.11) RIGHT FEMORAL NECK FRACTURE. EATING: EATING - STEP 1: Does the patient require the assistance of a person or device, or need extra time when eating? Yes. EATING - STEP 2: Does the patient require the assistance of a helper? Yes. EATING - STEP 3: Does the patient perform half or more of the eating tasks? Yes. EATING - STEP 4: Does the patient need only supervision, cuing, coaxing OR help to apply an orthosis OR help to cut fo od, open containers, pour liquids, or butter bread? Yes. EATING - SCORE: 5-SUP GROOMING: Comb/brush hair Oral care GROOMING - STEP 1: Does the patient require the assistance of a person or device, or need extra time when grooming? Yes. GROOMING - STEP 2: Does the patient require the assistance of a helper? No. The patient only requires an assistive devic e, OR takes more than reasonable time to groom, OR there is a concern for safety as the patient groom s GROOMING - SCORE: 6-ROBBY BATHING: Activity did not occur on this shift BATHING - SCORE: 0-UNK DRESSING - UPPER BODY: T-shirt/pullover shirt (four steps) ARTICLES SCORE Total number of steps: 4 DRESSING - UPPER BODY - STEP 1: Does the patient require help from a person or device, or need extra time when dressing above the meek st? Yes. DRESSING - UPPER BODY - STEP 2: Does the patient require the assistance of a helper? Yes. DRESSING - UPPER BODY - STEP 3: Does the helper touch the patient while dressing? Yes. DRESSING - UPPER BODY - STEP 4: How many of the total steps does the patient complete on his/her own? 3 DRESSING - UPPER BODY - SCORE: 4-MIN DRESSING - LOWER BODY: ARTICLES SCORE Total number of steps: 7 DRESSING - LOWER BODY - STEP 1: Does the patient require help from a person or device, or need extra time when dressing below the meek st? Yes. DRESSING - LOWER BODY - STEP 2: Does the patient require the assistance of a helper? Yes. DRESSING - LOWER BODY - STEP 3: Does the helper touch the patient while dressing? Yes. DRESSING - LOWER BODY - STEP 4: How many of the total steps does the patient complete on his/her own? 4 DRESSING - LOWER BODY - SCORE: 3-MOD TOILETING: TOILETING - STEP 1: Does the patient require the assistance of a person or device, or need extra time with toileting? Yes . TOILETING - STEP 2: Does the patient require the assistance of a helper? Yes. TOILETING - STEP 3: How much assistance does the patient require from the helper? Hands-on assistance from the helper TOILETING - STEP 4: Of the 3 tasks: 1) Adjusting clothing prior to use, 2) Cleansing of perineal area, 3) Adjusting clot stephenie after use; How many tasks does the patient perform WITHOUT assistance of the helper? Three tasks with steadying assistance from the helper TOILETING - SCORE: 4-MIN BLADDER MANAGEMENT: BLADDER MANAGEMENT - STEP 1: Does the patient control the bladder completely and intentionally without equipment or devices or med ications, and is always continent? No. BLADDER MANAGEMENT - STEP 2: Does the patient require the assistance of a helper? No, patient requires and independently uses an a ssistive device, such as a urinal, bedpan, bedside commode, catheter, absorbent pad, or collecting de vice BLADDER MANAGEMENT - SCORE: 6-ROBBY BOWEL MANAGEMENT: Activity did not occur on this shift BOWEL MANAGEMENT - SCORE: 7-IND TRANSFERS: BED, CHAIR, WHEELCHAIR: TRANSFERS: BED, CHAIR, WHEELCHAIR - STEP 1: Does the patient require assistance of a person or device, or need extra time with bed, chair, or whe elchair transfers? Yes. TRANSFERS: BED, CHAIR, WHEELCHAIR - STEP 2: Does the patient require the assistance of a helper? Yes. TRANSFERS: BED, CHAIR, WHEELCHAIR - STEP 3: How much assistance does the patient require from the helper? Steadying/guiding assistance TRANSFERS: BED, CHAIR, WHEELCHAIR - SCORE: 4-MIN TRANSFERS: TOILET: TRANSFERS: TOILET - STEP 1: Does the patient require the assistance of a person or device, or need extra time with toilet transfe rs? Yes. TRANSFERS: TOILET - STEP 2: Does the patient require the assistance of a helper? Yes. TRANSFERS: TOILET - STEP 3: How much assistance does the patient require from the helper? Patient performs half or more of the tr ansferring tasks TRANSFERS: TOILET - STEP 4: Does the patient need only incidental help such as contact guard or steadying during toilet transfer? Yes. TRANSFERS: TOILET - SCORE: 4-MIN TRANSFERS: SHOWER: Activity did not occur on this shift TRANSFERS: SHOWER - SCORE: 0-UNK TRANSFERS: TUB: Activity did not occur on this shift TRANSFERS: TUB - SCORE: 0-UNK LOCOMOTION: WALK: Activity did not occur on this shift LOCOMOTION: WALK - SCORE: 0-UNK LOCOMOTION: WHEELCHAIR: Activity did not occur on this shift LOCOMOTION: WHEELCHAIR - SCORE: 0-UNK COMPREHENSION: COMPREHENSION: TYPE: Both COMPREHENSION - STEP 1: Does the patient require help from a person or device, or need extra time to understand complex and a bstract ideas (such as current events, finances, discharge planning, medical issues, relationships, e tc)? Yes. COMPREHENSION - STEP 2: Does the patient require help to understand questions or statements about basic needs or ideas (such as hunger, thirst, sleep, safety, daily schedule, room location, or discomfort) half or more of the t madeleine? No. COMPREHENSION - STEP 3: How often does the patient need help to understand directions and conversation about basic needs? Les s than 10% of the time COMPREHENSION - SCORE: 5-SUP EXPRESSION EXPRESSION: TYPE: Both EXPRESSION - STEP 1: Does the patient require help from a person or device, or need extra time expressing complex and abst ract ideas (such as current events, finances, discharge planning, medical issues, relationships, etc) ? Yes. EXPRESSION - STEP 2: Does the patient require help to express basic necessities or ideas (such as hunger, thirst, sleep, s afety, daily schedule, room location, or discomfort) half or more of the time? No. EXPRESSION - STEP 3: How often does the patient need help to express directions and conversation about basic needs? Less t watt 10% of the time EXPRESSION - SCORE: 5-SUP SOCIAL INTERACTION: SOCIAL INTERACTION - STEP 1: Does the patient require a helper to interact with others in social and therapeutic situations? Yes. SOCIAL INTERACTION - STEP 2: Does the patient interact appropriately half or more of the time? Yes. SOCIAL INTERACTION - STEP 3: How often does the patient need help to interact appropriately? Less than 10% of the time SOCIAL INTERACTION - SCORE: 5-SUP PROBLEM SOLVING: PROBLEM SOLVING - STEP 1: Does the patient need help from a person or device, or need extra time to solve complex problems such as managing a checking account or confronting interpersonal problems? Yes. PROBLEM SOLVING - STEP 2: Does the patient solve basic routine problems half or more of the time? Yes. PROBLEM SOLVING - STEP 3: How often does the patient need help to solve basic routine problems? Less than 10% of the time PROBLEM SOLVING - SCORE: 5-SUP MEMORY: MEMORY - STEP 1: Does the patient need help from a person or device, or need extra time to remember frequently encount ered people, daily routines, and executing requests? Yes. MEMORY - STEP 2: How often does the patient need help to remember frequently encountered people, daily routines, and e xecuting requests? Less than 10% of the time MEMORY - SCORE: 5-SUP SIGNATURE PANEL: The following modified sections: Eating - Score, Grooming - Score, Bathing - Score, Dressing - Upper Body - Score, Dressing - Lower Body - Score, Toileting - Score, Bladder Management - Score, Bowel Man agement - Score, Transfers: Bed, Chair, Wheelchair - Score, Transfers: Toilet - Score, Transfers: Kayla wer - Score, Transfers: Tub - Score, Locomotion: Walk - Score, Locomotion: Wheelchair - Score, Compre hension - Score, Expression - Score, Social Interaction - Score, Problem Solving - Score, Memory - Sc ore were [electronically] signed by Cali Barron on MonSep 11 2018 15:20:47 GMT-0600 (Central Standard Time)
--- NOTE | 2018-09-11 15:53 | FAST ---
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 Daniel Mane M.D. ADMISSION DIAGNOSIS: - Orthopaedic Disorders 08 - Unilateral Hip Fracture (08.11) RIGHT FEMORAL NECK FRACTURE. EATING: Activity did not occur on this shift EATING - SCORE: 0-UNK GROOMING: Activity did not occur on this shift GROOMING - SCORE: 0-UNK BATHING: Activity did not occur on this shift BATHING - SCORE: 0-UNK DRESSING - UPPER BODY: Activity did not occur on this shift Patient is not dressing in public clothing ARTICLES SCORE Total number of steps: 0 DRESSING - UPPER BODY - SCORE: 0-UNK DRESSING - LOWER BODY: Activity did not occur on this shift Patient is not dressing in public clothing ARTICLES SCORE Total number of steps: 0 DRESSING - LOWER BODY - SCORE: 0-UNK TOILETING: Activity did not occur on this shift TOILETING - SCORE: 0-UNK BLADDER MANAGEMENT: Activity did not occur on this shift BLADDER MANAGEMENT - SCORE: 7-IND BOWEL MANAGEMENT: Activity did not occur on this shift BOWEL MANAGEMENT - SCORE: 7-IND TRANSFERS: BED, CHAIR, WHEELCHAIR: TRANSFERS: BED, CHAIR, WHEELCHAIR - STEP 1: Does the patient require assistance of a person or device, or need extra time with bed, chair, or whe elchair transfers? Yes. TRANSFERS: BED, CHAIR, WHEELCHAIR - STEP 2: Does the patient require the assistance of a helper? Yes. TRANSFERS: BED, CHAIR, WHEELCHAIR - STEP 3: How much assistance does the patient require from the helper? Lifting of the patient TRANSFERS: BED, CHAIR, WHEELCHAIR - STEP 4: Does the helper lift the patient ONLY up? ONLY down? Up AND Down? ONLY up. TRANSFERS: BED, CHAIR, WHEELCHAIR - SCORE: 3-MOD TRANSFERS: TOILET: Activity did not occur on this shift TRANSFERS: TOILET - SCORE: 0-UNK TRANSFERS: SHOWER: Activity did not occur on this shift TRANSFERS: SHOWER - SCORE: 0-UNK TRANSFERS: TUB: Activity did not occur on this shift TRANSFERS: TUB - SCORE: 0-UNK LOCOMOTION: WALK: Patient walks less than 50 feet LOCOMOTION: WALK - SCORE: 1-DEP LOCOMOTION: WHEELCHAIR: Patient propels wheelchair less than 50 ft LOCOMOTION: WHEELCHAIR - SCORE: 1-DEP LOCOMOTION: STAIRS: Activity did not occur on this shift LOCOMOTION: STAIRS - SCORE: 0-UNK COMPREHENSION: COMPREHENSION - SCORE: 0-UNK EXPRESSION EXPRESSION - SCORE: 0-UNK SOCIAL INTERACTION: SOCIAL INTERACTION - SCORE: 0-UNK PROBLEM SOLVING: PROBLEM SOLVING - SCORE: 0-UNK MEMORY: MEMORY - SCORE: 0-UNK SIGNATURE PANEL: The following modified sections: Transfers: Bed, Chair, Wheelchair - Score, Transfers: Toilet - Score , Locomotion: Walk - Score, Locomotion: Wheelchair - Score, Locomotion: Stairs - Score were [electron ically] signed by Jacky Santoro PT on MonSep 11 2018 15:51:50 GMT-0600 (Central Standard Time)
--- NOTE | 2018-09-11 17:57 | PAPE ---
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 Daniel Mane M.D. ADMISSION DIAGNOSIS: RIGHT FEMORAL NECK FRACTURE ONSET DATE 09/07/2018 SECONDARY/COMORBID DIAGNOSES TIERED: - N/A HYPERTENSION PAROXYSMAL ATRIAL FIBRILLATION HYPOTHYROIDISM SLEEP APNEA STROKE AORTIC VALVE STENOSIS GERD PROSTATE CANCER DEPRESSION HYPERLIPIDEMIA Impaired fasting glucose (R73.01) RIGHT SIDED RIB FRACTURE PNEUMONIA POST-ADMISSION FUNCTIONAL/MEDICAL STATUS: - Bladder Same accident frequency: Ind - No accidents in the past 7 days - Bowel Same accident frequency: Ind - No accidents in the past 7 days - Walking Same score based on distance walked: 0(N/A) - Wheelchair Same score based on distance traveled: 0(N/A) STATUS CHANGE EVALUATION: No change in Functional or Medical Status is identified compared with Pre-Admission screening. PATIENT NEEDS CLOSE MEDICAL SUPERVISION BY A REHABILITATION PHYSICIAN FOR: Bowel and Bladder Management Coordination of Treatment Team Medical and Co-Morbidity Management Wound Care Pain Management DVT Management PATIENT REQUIRES 24X7 REHAB NURSING FOR MEDICAL AND FUNCTIONAL MGT. OF THE FOLLOWING DEFICITS: ADL's Ambulation Bowel and Bladder Management Cognition Communication Disease Management Medication Management Patient/Family Education Providing Safe Environment Skin Integrity Transfers Pain Management PATIENT REQUIRES INTENSIVE, COORDINATED INTERDISCIPLINARY APPROACH TO REHAB: Arranging Home Equipment/Services Discharge Planning Family Intervention/Training House Painter Helper/Case Management LIST OF IDENTIFIED AND POTENTIAL PROBLEMS: Alteration in leisure activities Bladder, Incontinence Blood Pressure, Hypertension/hypotension Issues Bowel, Incontinence Depression, Actual or Potential Infection, Actual or Potential Mobility Impaired Pain, Alteration in Comfort Self Care Deficit Skin Integrity, Actual or Potential Urinary Tract Infection (UTI), Actual or Potential RISK FOR COMPLICATIONS - Hypertension CVA. Hypotension. SC. TIA. - Sleep Apnea Anoxia. BI. CVA. Fatigue. SC. - GERD Alteration in sleep. Aspiration. Dehydration. Malnutrition. Pain. - Depression Serotonin side effects. - Pneumonia Respiratory failure. Sepsis. INTERVENTIONS - Hypertension - Sleep Apnea 02 sats. Oxygen. Respiratory management. - GERD Altered diet. Elevation of head of bed. Medications. Nausea/vomiting. Nighttime food/fluid restrictio ns. Nutrition. - Depression Medications. Psycho/social. Safety. - Pneumonia Cultures. Fluid management. Labs. Oxygen. Respiratory management. X-rays. PATIENT COULD BE AT RISK FOR COMPLICATIONS FROM ADVERSE MEDICAL CONDITIONS DUE TO HIS/HER COMORBIDITI ES AND THE RIGORS OF THE INTENSIVE REHABILLITATION PROGRAM. METHODS OR INTERVENTIONS TO AVOID COMPLIC ATIONS INCLUDE: - Deep Vein Thrombosis (DVT) Prophylaxis therapy for prevention . Sequential Compression Device (SCD). TE D Hose. - Bleeding Assess lab values and manage abnormalities. Nursing to teach precautions for anti-coagulation therapy . Stroke patients assessed for lethargy or change in status. Wound to be assessed every shift. - Infection Clinical staff to assess and manage the signs and symptoms of infection including fever, redness, war mth, etc. - Urinary Tract Infection - Aspiration Clinical staff will assess and manage coughing, drooling, congestion. - Falls Patient will be evaluated for Fall Precautions and will be placed on Fall Precautions as indicated pe r protocol. - Skin Breakdown Nursing will assess skin daily using assessment tool and will place on Skin Breakdown Precautions as indicated per protocol. - Pain Clinical staff may employ non-medication methods such as massage, distraction, decrease stimulus, etc . as needed. Clinical staff will assess patient's pain level every shift per protocol to assess and e nsure pain management effectiveness. Medications will be given and the pain level re-assessed. PRELIMINARY PLAN OF CARE: - Physical Therapy Patient needs Physical Therapy for a daily minimum of 1.5 hours at least 5 out of 7 days, to improve: Mobility, Strengthening, Transfers, Stretching, ROM, Endurance, Ability to manage stairs, Gait, and Balance. - Speech Therapy Patient needs Speech Therapy for a daily minimum of 0.5 hours at least 5 out of 7 days, to improve: S wallowing, Cognition, Language Skills, and Compensatory Strategies. - Rehabilitation Nursing Patient requires 24x7 Rehabilitation Nursing for: Pain Issues, Identifying and preventing risk factor s, Monitoring and reporting current medical conditions, Assisting with ambulation and transfer, Celina ting with all ADL-s, Teaching patients about disease process and medications, Family teaching, Provid ing safe environment, Bowel and Bladder Issues, Skin Integrity, and Medication Management. Patient needs House Painter Helper and/or Case Management for: Discharge Planning, Arranging Home Equipmen t or Services, and Family Interventions. - Dietary and Nutrition Services Patient needs Dietary and Nutrition Services for: Adequate Nutrition, Nutritional Supplements, and Nu tritional Education. - Occupational Therapy Patient needs Occupational Therapy for a daily minimum of 1.5 hours at least 5 out of 7 days, to impr ove Activities of Daily Living, including: Eating, Grooming, Bathing, Dressing, Toileting, Toilet Tra nsfers, Community Reintegration, Higher functional activities, Adaptive Equipment, Splinting, Househo ld Tasks, and Other activities as determined. POTENTIAL FUNCTIONAL GOALS FOR PATIENT TO ACHIEVE BY DISCHARGE: - Safety Precaution Patient will remain free from falls or injury at time of discharge. - Bed Mobility Patient will perform bed mobility at 4-Ruddy level of assistance. - Transfers Patient will complete transfers from bed to chair at 4-Ruddy level of assistance. - Mobility Patient will ambulate 150 ft with 4-Ruddy level of assistance with RW. PATIENT REHAB POTENTIAL Expected level of measurable improvement will be of a practical value to patient's functional capacit y or adaptations to impairments Has a viable Discharge Plan Medically appropriate; condition is sufficiently stable to participate in intensive rehab program Patient is able and expected to receive 3 hours of individualized therapy daily on at least 5 of ever y 7 days Patient's prognosis for significant practical improvement within a reasonable period of time appears Good DISCHARGE PLAN: - Estimated Length of Stay (days) 14. - Consensus on plan Discharge plan has been discussed with primary caregiver. Patient/Family is in agreement with the bebo n. Primary caregiver is in agreement with the plan. - Patient/Family Goals Return home with assistance. - Planned Living Setting Upon Discharge Home, to live with Family/Relatives. CONCLUSION ON REHABILITATION NECESSITY: I have evaluated patient's pre-admission functional status and, comparing it to the patient's post-ad mission functional status now, I conclude that the pre-admission assessment was accurate. Patient's c ondition on admission supports the medical necessity of admission to IRF. It is safe to proceed with patient's therapy program. 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
[2018-09-11] MEDS: PROMOD 30 ML DOSE PO SCH (19:56)
[2018-09-11] MEDS: DOCUSATE NA/SENNA CONC 1 TAB PO SCH (19:59)
--- NOTE | 2018-09-12 00:21 | FAST ---
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 Daniel Mane M.D. ADMISSION DIAGNOSIS: - Orthopaedic Disorders 08 - Unilateral Hip Fracture (08.11) RIGHT FEMORAL NECK FRACTURE. EATING: Activity did not occur on this shift EATING - SCORE: 0-UNK GROOMING: Activity did not occur on this shift GROOMING - SCORE: 0-UNK BATHING: Activity did not occur on this shift BATHING - SCORE: 0-UNK DRESSING - UPPER BODY: Activity did not occur on this shift ARTICLES SCORE Total number of steps: 0 DRESSING - UPPER BODY - SCORE: 0-UNK DRESSING - LOWER BODY: Activity did not occur on this shift ARTICLES SCORE Total number of steps: 0 DRESSING - LOWER BODY - SCORE: 0-UNK TOILETING: Activity did not occur on this shift TOILETING - SCORE: 0-UNK BLADDER MANAGEMENT: [place] removes incontinent device (Depends, pull ups, etc.); cleans the patient after accident / inco ntinent episode; and, applies new incontinent device. BLADDER MANAGEMENT - SCORE: 1-DEP BOWEL MANAGEMENT: Activity did not occur on this shift BOWEL MANAGEMENT - SCORE: 7-IND TRANSFERS: BED, CHAIR, WHEELCHAIR: Patient requires more than one helper and/or the use of a mechanical lift is utilized TRANSFERS: BED, CHAIR, WHEELCHAIR - SCORE: 1-DEP TRANSFERS: TOILET: Activity did not occur on this shift TRANSFERS: TOILET - SCORE: 0-UNK TRANSFERS: SHOWER: Activity did not occur on this shift TRANSFERS: SHOWER - SCORE: 0-UNK TRANSFERS: TUB: Activity did not occur on this shift TRANSFERS: TUB - SCORE: 0-UNK LOCOMOTION: WALK: Activity did not occur on this shift LOCOMOTION: WALK - SCORE: 0-UNK LOCOMOTION: WHEELCHAIR: Activity did not occur on this shift LOCOMOTION: WHEELCHAIR - SCORE: 0-UNK COMPREHENSION: COMPREHENSION: TYPE: Both COMPREHENSION - STEP 1: Does the patient require help from a person or device, or need extra time to understand complex and a bstract ideas (such as current events, finances, discharge planning, medical issues, relationships, e tc)? Yes. COMPREHENSION - STEP 2: Does the patient require help to understand questions or statements about basic needs or ideas (such as hunger, thirst, sleep, safety, daily schedule, room location, or discomfort) half or more of the t madeleine? No. COMPREHENSION - STEP 3: How often does the patient need help to understand directions and conversation about basic needs? 10% - 24% of the time COMPREHENSION - SCORE: 4-MIN EXPRESSION EXPRESSION: TYPE: Both EXPRESSION - STEP 1: Does the patient require help from a person or device, or need extra time expressing complex and abst ract ideas (such as current events, finances, discharge planning, medical issues, relationships, etc) ? Yes. EXPRESSION - STEP 2: Does the patient require help to express basic necessities or ideas (such as hunger, thirst, sleep, s afety, daily schedule, room location, or discomfort) half or more of the time? No. EXPRESSION - STEP 3: How often does the patient need help to express directions and conversation about basic needs? 10-24% of the time EXPRESSION - SCORE: 4-MIN SOCIAL INTERACTION: SOCIAL INTERACTION - STEP 1: Does the patient require a helper to interact with others in social and therapeutic situations? No. SOCIAL INTERACTION - STEP 2: Does the patient need extra time in social situations, OR does s/he interact with staff, other patien ts, and family members ONLY in structured environments, OR does s/he require medication for social in teraction? Yes, patient needs extra time SOCIAL INTERACTION - SCORE: 6-ROBBY PROBLEM SOLVING: PROBLEM SOLVING - STEP 1: Does the patient need help from a person or device, or need extra time to solve complex problems such as managing a checking account or confronting interpersonal problems? Yes. PROBLEM SOLVING - STEP 2: Does the patient solve basic routine problems half or more of the time? Yes. PROBLEM SOLVING - STEP 3: How often does the patient need help to solve basic routine problems? 10%-24% of the time PROBLEM SOLVING - SCORE: 4-MIN MEMORY: MEMORY - STEP 1: Does the patient need help from a person or device, or need extra time to remember frequently encount ered people, daily routines, and executing requests? Yes. MEMORY - STEP 2: How often does the patient need help to remember frequently encountered people, daily routines, and e xecuting requests? 10% - 24% of the time MEMORY - SCORE: 4-MIN SIGNATURE PANEL: The following modified sections: Eating - Score, Grooming - Score, Bathing - Score, Dressing - Upper Body - Score, Dressing - Lower Body - Score, Toileting - Score, Bladder Management - Score, Bowel Man agement - Score, Transfers: Bed, Chair, Wheelchair - Score, Transfers: Toilet - Score, Transfers: Kayla wer - Score, Transfers: Tub - Score, Locomotion: Walk - Score, Locomotion: Wheelchair - Score, Compre hension - Score, Expression - Score, Social Interaction - Score, Problem Solving - Score, Memory - Sc ore were [electronically] signed by Milly Arteaga CNA on MonSep 12 2018 00:20:07 T-0600 ([facility])
[2018-09-12] MEDS: PIPER/TAZO/NS 3.375gm 3.375 GM/100 ML BAG IVPB SCH ×3 (00:36→16:10)
[2018-09-12] MEDS: HYDROCODONE/APAP 5/325 MG TAB PO PRN ×5 (00:40→22:12)
--- NOTE | 2018-09-12 00:56 | PN ---
Date of Progress Note: 09/11/2018 Subjective: The patient was seen for followup this morning. He was on rehab floor. The patient den ied any complaints. He slept well last night. Physical Examination: HEENT: Examination unremarkable. Lungs: Clear to auscultation. Heart: Sounds normal. Abdomen: Soft. Bowel sounds normal. No guarding, rigidity, tenderness, or distention. Extremities: No leg edema. Laboratory Data: White count 6.6, hemoglobin 10.7, and platelets 261. Sodium 141, potassium 4.2, ch loride 107, bicarb 29, BUN 14, creatinine 0.89, and glucose 92. Impression: 1.Hip fracture, right femoral neck, status post surgery. 2.Acute blood loss anemia. 3.Hypertension. 4.Insomnia. 5.Constipation. 6.Stroke with right-sided hemiparesis. Plan: We will continue current medications including stool softener. Continue current antihypertens desiree medication. Lovenox will be given for DVT prophylaxis per order at 40 mg subcutaneous injection daily. We will continue current antibiotic for pneumonia, which is aspiration pneumonia, and follow up on chest x-ray at appropriate time. Physical therapy will be provided per guidance of Dr. Mane. I will see him tomorrow for followup. DAWNA/MODL Voice ID: [id number] Report ID: [id number]
[2018-09-12] MEDS: ALBUTEROL 2.5 MG/3 ML NEB SOL NEB SCH ×4 (02:00→20:50)
[2018-09-12] MEDS: ENOXAPARIN 40 MG/0.4 ML SQ SCH (07:11)
[2018-09-12] MEDS: RAMIPRIL 5 MG CAP PO SCH ×2 (08:20→20:07)
[2018-09-12] MEDS: ESCITALOPRAM 20 MG TAB PO SCH (08:21)
[2018-09-12] MEDS: AMLODIPINE 5 MG TAB PO SCH (08:21)
[2018-09-12] MEDS: BACLOFEN 10 MG TAB PO SCH ×3 (08:22→20:08)
[2018-09-12] MEDS: PROMOD 30 ML DOSE PO SCH ×2 (08:22→20:08)
[2018-09-12] MEDS: TRAMADOL HCL 50 MG TAB PO PRN ×2 (10:26→18:36)
[2018-09-12] MEDS: LIDOCAINE 5% PATCH TOP SCH (12:10)
[2018-09-12] MEDS: MAGNESIUM OXIDE 400 MG TAB PO SCH ×2 (14:07→20:07)
--- NOTE | 2018-09-12 16:51 | R.PN ---
ENCOUNTER DATE AND TIME: 09/12/2018 16:43 (WILDLIFE MANAGER) NAME ELSIE RODRIGUEZ DATE OF : 1950 DATE OF ADMISSION: 09/10/2018 19:12 (WILDLIFE MANAGER) RIGHT FEMORAL NECK FRACTURECHIEF COMPLAINT: Right femoral fracture SUBJECTIVE: Pt denied any depression. Pt denied any Shortness of Breath. Mr. 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 His right lower extremity spastic dorsiflexion is not likely due complications following surgery. Ambulated 5' using hemiwalker requiring maximum assistance. Reports muscle spasms in right thigh. On baclofen 10 mg tid, will add magnesium oxide 400 mg bid. Hgb 10.7, prealbumin 16.8, albumin 3.0, UA is wnl. VITAL SIGNS Temperature: 97.6 F SBP/DBP: 130/74 Pulse: 83 Resp: 16 MEDICATION ALLERGIES: Sulfa ENVIRONMENTAL ALLERGIES: None Known - Substance Allergies None Known - Other Allergies None Known NURSING: - Shower allowing shower - Skin care per protocol PRECAUTIONS: - Posterior Hip Precaution No adduction across midline No external rotation No hip flexion >90 degrees No internal rotation No wheel chair propulsion - Weight Bearing Precaution WBAT right LE ACTIVITIES OOB only with supervision THERAPIES: - Occupational Therapy Evaluate and Treat. - Physical Therapy Evaluate and Treat. PHYSICAL EXAM - Gen Alert and awake Lying in bed No apparent distress Oriented to: person, time, and place - Skin No breakdown No abnormalities - Eyes No abnormalities - ENMT No abnormalities - Neck No abnormalities - CVS RRR - Chest No abnormalities - Abd + bowel sounds - GI Soft Deferred - No abnormalities - Ext Right hip surgical site has good hemostasis. - MSK 4+/5 weakness in right lower extremity. - Neuro 4/5 strength right lower extremity. - Psych No abnormalities ASSESSMENT: Pt. is a 68 yo Right-handed white male.On 09/07/2018 he was admitted to [facility] with diagnosis RIGHT FEMORAL NECK FRACTURE.His impairment category is Orthopaedic Disorders 08 - Unilateral Hip Fracture (08.11).Pre-morbidly, Pt. was independent/mod-I in Sphincter Control, Transf ers Control, Communication, Social Cognition, Self-Care, and Locomotion; and he had good Sphincter Co ntrol.Currently, he has deficits of Endurance, Safety Awareness, Transfers Control, Balance, Self-Car e, and Locomotion.Pt. is now referred to [facility] for acute in-patient rehab ilitation in order to maximize patient's functional independence in activities of daily living, stren gth, ROM, and mobility.- Rehab Goal Patient has realistic goal of being discharged at assistance level 6-Henny to reside at Home with Fam liana/Relatives. MDM/PLAN: - Physical Therapy Decreased range of motion - to improve, our physical therapists will perform initial evaluation of p t's status upon admission and devise an individualized program for increasing patient's Range of William on. Gait dysfunction - to improve, our physical therapists will perform initial evaluation of pt's statu s upon admission and devise an individualized program for Gait Training, and Wheel Chair mobility Inability to transfer - to improve, our physical therapists will perform initial evaluation of pt's status upon admission and devise an individualized program for Bed mobility Need for home safety evaluation - to improve, our physical therapists will perform initial evaluatio n of pt's status upon admission and devise an individualized program for Home Evaluation Need in caregiver upon discharge - to improve, our physical therapists will perform initial evaluati on of pt's status upon admission and devise an individualized program for Caregiver Training New precaution - to improve, our physical therapists will perform initial evaluation of pt's status upon admission and devise an individualized program for Patient precaution education Poor balance - to improve, our physical therapists will perform initial evaluation of pt's status up on admission and devise an individualized program for Balance Training Poor endurance - to improve, our physical therapists will perform initial evaluation of pt's status upon admission and devise an individualized program for Endurance Training Weakness - to improve, our physical therapists will perform initial evaluation of pt's status upon a dmission and devise an individualized program for Aquatic Therapy, Neuromuscular Reeducation, and Str engthening Achieving independence - to improve, our physical therapists will perform initial evaluation of pt's status upon admission and devise an individualized program for Community Reintegration Activities - Occupational Therapy ADL deficits - to improve, our occupation therapists will perform initial evaluation of pt's status upon admission and devise an individualized program for Bathing, Bed mobility, Community Reintegratio n, Cooking, Dressing, Eating, Fine Motor Skills, Grooming, Homemaking, Kitchen Mobility, Laundry, Pat ient Education, Safety Awareness, Splinting - Positioning, Transfers(Toilet, Tub, Shower), and Wheel Chair Management Need for healthcare network pricing consultant - to improve, our occupation therapists will perform initial evaluation of pt's status upon admission and devise an individualized program for Caregiver Training Weakness - to improve, our occupation therapists will perform initial evaluation of pt's status upon admission and devise an individualized program for Aquatic Therapy, Balance, Endurance, UE ROM, and UE strengthening - Anterior Hip Precaution No abduction No active extension No adduction across midline No external rotation No hip flexion >90 degrees No internal rotation - Diet - Liquid Texture Continue Regular - Tube Feed Continue N/A - Diet Type Continue Heart Healthy - Posterior Hip Precaution No adduction across midline No external rotation No hip flexion >90 degrees No internal rotation No wheel chair propulsion - Weight Bearing Precaution WBAT right LE - Skin care per protocol - Diet - Solid Texture Continue Regular - Shower allowing shower FUNCTIONAL STATUS: UPDATED AT WEEKLY TEAM CONFERENCE - Bladder Same accident frequency: 7-Ind - No accidents in the past 7 days - Bowel Same accident frequency: 7-Ind - No accidents in the past 7 days - Walking Same score based on distance walked: 0(N/A) - Wheelchair Same score based on distance traveled: 0(N/A) FUNCTIONAL STATUS: - Self-Care A. Eating sup B. Grooming sup C. Bathing sup D. Dressing - Upper sup E. Dressing - Lower Ruddy F. Toileting modA - Sphincter Control G: Bladder control Ind H: Bowel control Ind - Transfers Control I. Bed/Chair/Wheelchair modA J. Toilet modA K. Tub/Shower ADNO - Locomotion L. Walk/Wheelchair (C) modA L. Walk/Wheelchair (W) modA M. Stairs ADNO - Communication N. Comprehension (B) Henny O. Expression (B) Henny - Social Cognition P. Social Interaction Henny Q. Problem Solving Henny R. Memory Henny - Endurance Poor - Balance Poor - Safety Awareness Fair CURRENT FUNC. DEFICITS: Endurance, Safety Awareness, Transfers Control, Balance, Self-Care, and Locomotion SIGNATURE PANEL: ([facility])
[2018-09-12] MEDS ORDERED: BISACODYL 10 MG RECTAL SUPP PR PRN (17:56)
[2018-09-12] MEDS: DOCUSATE NA/SENNA CONC 1 TAB PO SCH (20:07)
--- NOTE | 2018-09-13 00:23 | FAST ---
SHIFT START DATE/TIME: 09/12/2018 19:00 (HEALTH RECORD TECHNICIAN) SHIFT END DATE/TIME: 09/13/2018 07:00 (HEALTH RECORD TECHNICIAN) NAME ELSIE MENDOZA DATE OF : 1950 DATE OF ADMISSION: 09/10/2018 19:12 (HEALTH RECORD TECHNICIAN) PHONE: AGE: 68 SSN# [id number] GENDER: Male ENCOUNTER PHYSICIAN: Dr. Daniel Mane M.D. ADMISSION DIAGNOSIS: - Orthopaedic Disorders 08 - Unilateral Hip Fracture (08.11) RIGHT FEMORAL NECK FRACTURE. EATING: Activity did not occur on this shift EATING - SCORE: 0-UNK GROOMING: Activity did not occur on this shift GROOMING - SCORE: 0-UNK BATHING: Activity did not occur on this shift BATHING - SCORE: 0-UNK DRESSING - UPPER BODY: Patient is not dressing in public clothing ARTICLES SCORE Total number of steps: 0 DRESSING - UPPER BODY - SCORE: 0-UNK DRESSING - LOWER BODY: Patient is not dressing in public clothing ARTICLES SCORE Total number of steps: 0 DRESSING - LOWER BODY - SCORE: 0-UNK TOILETING: Activity did not occur on this shift TOILETING - SCORE: 0-UNK BLADDER MANAGEMENT: [place] removes incontinent device (Depends, pull ups, etc.); cleans the patient after accident / inco ntinent episode; and, applies new incontinent device. BLADDER MANAGEMENT - SCORE: 1-DEP BLADDER MANAGEMENT - FREQUENCY OF ACCIDENTS: BLADDER MANAGEMENT(FA) - STEP 1: How many accidents has the patient had during the current shift? 1 BOWEL MANAGEMENT: Activity did not occur on this shift BOWEL MANAGEMENT - SCORE: 7-IND TRANSFERS: BED, CHAIR, WHEELCHAIR: Activity did not occur on this shift TRANSFERS: BED, CHAIR, WHEELCHAIR - SCORE: 0-UNK TRANSFERS: TOILET: Activity did not occur on this shift TRANSFERS: TOILET - SCORE: 0-UNK TRANSFERS: SHOWER: Activity did not occur on this shift TRANSFERS: SHOWER - SCORE: 0-UNK TRANSFERS: TUB: Activity did not occur on this shift TRANSFERS: TUB - SCORE: 0-UNK LOCOMOTION: WALK: Activity did not occur on this shift LOCOMOTION: WALK - SCORE: 0-UNK LOCOMOTION: WHEELCHAIR: Activity did not occur on this shift LOCOMOTION: WHEELCHAIR - SCORE: 0-UNK COMPREHENSION: COMPREHENSION: TYPE: Both COMPREHENSION - STEP 1: Does the patient require help from a person or device, or need extra time to understand complex and a bstract ideas (such as current events, finances, discharge planning, medical issues, relationships, e tc)? Yes. COMPREHENSION - STEP 2: Does the patient require help to understand questions or statements about basic needs or ideas (such as hunger, thirst, sleep, safety, daily schedule, room location, or discomfort) half or more of the t madeleine? No. COMPREHENSION - STEP 3: How often does the patient need help to understand directions and conversation about basic needs? 10% - 24% of the time COMPREHENSION - SCORE: 4-MIN EXPRESSION EXPRESSION: TYPE: Both EXPRESSION - STEP 1: Does the patient require help from a person or device, or need extra time expressing complex and abst ract ideas (such as current events, finances, discharge planning, medical issues, relationships, etc) ? Yes. EXPRESSION - STEP 2: Does the patient require help to express basic necessities or ideas (such as hunger, thirst, sleep, s afety, daily schedule, room location, or discomfort) half or more of the time? No. EXPRESSION - STEP 3: How often does the patient need help to express directions and conversation about basic needs? 10-24% of the time EXPRESSION - SCORE: 4-MIN SOCIAL INTERACTION: SOCIAL INTERACTION - STEP 1: Does the patient require a helper to interact with others in social and therapeutic situations? No. SOCIAL INTERACTION - STEP 2: Does the patient need extra time in social situations, OR does s/he interact with staff, other patien ts, and family members ONLY in structured environments, OR does s/he require medication for social in teraction? Yes, patient needs extra time SOCIAL INTERACTION - SCORE: 6-ROBBY PROBLEM SOLVING: PROBLEM SOLVING - STEP 1: Does the patient need help from a person or device, or need extra time to solve complex problems such as managing a checking account or confronting interpersonal problems? Yes. PROBLEM SOLVING - STEP 2: Does the patient solve basic routine problems half or more of the time? Yes. PROBLEM SOLVING - STEP 3: How often does the patient need help to solve basic routine problems? 10%-24% of the time PROBLEM SOLVING - SCORE: 4-MIN MEMORY: MEMORY - STEP 1: Does the patient need help from a person or device, or need extra time to remember frequently encount ered people, daily routines, and executing requests? No. MEMORY - STEP 2: Does the patient have slight difficulty recognizing frequently encountered people, daily routines, or executing requests without the need for repetition or using self-initiated or environmental cues to remember? Yes. MEMORY - SCORE: 6-ROBBY SIGNATURE PANEL: The following modified sections: Eating - Score, Grooming - Score, Dressing - Upper Body - Score, Joseph ssing - Lower Body - Score, Toileting - Score, Bladder Management - Score, Bowel Management - Score, Transfers: Bed, Chair, Wheelchair - Score, Transfers: Toilet - Score, Transfers: Shower - Score, Gupta sfers: Tub - Score, Locomotion: Walk - Score, Locomotion: Wheelchair - Score, Comprehension - Score, Expression - Score, Social Interaction - Score, Problem Solving - Score, Memory - Score were [electro nically] signed by Isabela Arshad CNA on MonSep 13 2018 00:22:35 GMT-0600 (Central Standard Time)
--- NOTE | 2018-09-13 00:29 | PN ---
Date of Progress Note: 09/12/2018 Subjective: The patient was seen this morning for followup. No new complaints or problems reported by patient. Lying in bed, not in distress. Physical Examination: Vital signs: Reviewed. HEENT: Unremarkable. Lungs: Clear to auscultation. No rhonchi or rales. Heart: Sounds normal. Abdomen: Soft. Bowel sounds normal. No guarding, rigidity, tenderness, distention. Extremities: No leg edema. Impression: 1.Aspiration pneumonia. 2.Right femoral neck fracture. 3.Hypertension. 4.Stroke with right-sided hemiparesis. 5.[place]. Plan: We will continue current antibiotic. Yesterday, it was brought to my attention that the patie nt is not able to move his right foot ever since this fracture and surgery, so I did ask the nursing staff to contact Dr. Roberts for his evaluation and recommendation for this. We will continue curr ent antibiotics. Follow up on chest x-ray, which will be done today or tomorrow. Continue physical therapy per guidance of Dr. Mane. DAWNA/MODL Voice ID: [id number] Report ID: [id number]
[2018-09-13] MEDS: PIPER/TAZO/NS 3.375gm 3.375 GM/100 ML BAG IVPB SCH ×3 (01:13→16:09)
[2018-09-13] MEDS: TRAMADOL HCL 50 MG TAB PO PRN ×4 (01:52→19:01)
[2018-09-13] MEDS: ALBUTEROL 2.5 MG/3 ML NEB SOL NEB SCH ×4 (02:00→20:00)
[2018-09-13] MEDS: HYDROCODONE/APAP 5/325 MG TAB PO PRN ×4 (04:03→16:08)
--- NOTE | 2018-09-13 06:31 | FAST ---
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 Daniel Mane M.D. ADMISSION DIAGNOSIS: - Orthopaedic Disorders 08 - Unilateral Hip Fracture (08.11) RIGHT FEMORAL NECK FRACTURE. EATING: EATING - STEP 1: Does the patient require the assistance of a person or device, or need extra time when eating? Yes. EATING - STEP 2: Does the patient require the assistance of a helper? Yes. EATING - STEP 3: Does the patient perform half or more of the eating tasks? Yes. EATING - STEP 4: Does the patient need only supervision, cuing, coaxing OR help to apply an orthosis OR help to cut fo od, open containers, pour liquids, or butter bread? Yes. EATING - SCORE: 5-SUP GROOMING: Oral care Wash, rinse, and dry face Wash, rinse, and dry hands GROOMING - STEP 1: Does the patient require the assistance of a person or device, or need extra time when grooming? Yes. GROOMING - STEP 2: Does the patient require the assistance of a helper? Yes. GROOMING - STEP 3: How much assistance does the patient require from the helper? Only prior equipment preparation/set up from the helper GROOMING - SCORE: 5-SUP BATHING: Activity did not occur on this shift BATHING - SCORE: 0-UNK DRESSING - UPPER BODY: Activity did not occur on this shift ARTICLES SCORE Total number of steps: 0 DRESSING - UPPER BODY - SCORE: 0-UNK DRESSING - LOWER BODY: Elastic waist pants (three steps) Sock - Left foot (one step) Sock - Right foot (one step) Tied or buckled shoe - Left foot (two steps) Tied or buckled shoe - Right foot (two steps) Underwear (three steps) ARTICLES SCORE Total number of steps: 12 DRESSING - LOWER BODY - STEP 1: Does the patient require help from a person or device, or need extra time when dressing below the meek st? Yes. DRESSING - LOWER BODY - STEP 2: Does the patient require the assistance of a helper? Yes. DRESSING - LOWER BODY - STEP 3: Does the helper touch the patient while dressing? Yes. DRESSING - LOWER BODY - STEP 4: How many of the total steps does the patient complete on his/her own? 0 DRESSING - LOWER BODY - STEP 5: Does patient require total assistance for dressing below the waist such as the helper holding clothin g and performing basically all the activities? Yes. DRESSING - LOWER BODY - SCORE: 1-DEP TOILETING: TOILETING - STEP 1: Does the patient require the assistance of a person or device, or need extra time with toileting? Yes . TOILETING - STEP 2: Does the patient require the assistance of a helper? Yes. TOILETING - STEP 3: How much assistance does the patient require from the helper? Hands-on assistance from the helper TOILETING - STEP 4: Of the 3 tasks: 1) Adjusting clothing prior to use, 2) Cleansing of perineal area, 3) Adjusting clot stephenie after use; How many tasks does the patient perform WITHOUT assistance of the helper? No tasks; h elper performs all three tasks TOILETING - SCORE: 1-DEP BLADDER MANAGEMENT: [place] removes incontinent device (Depends, pull ups, etc.); cleans the patient after accident / inco ntinent episode; and, applies new incontinent device. BLADDER MANAGEMENT - SCORE: 1-DEP BLADDER MANAGEMENT - FREQUENCY OF ACCIDENTS: BLADDER MANAGEMENT(FA) - STEP 1: How many accidents has the patient had during the current shift? 0 BOWEL MANAGEMENT: Activity did not occur on this shift BOWEL MANAGEMENT - SCORE: 7-IND BOWEL MANAGEMENT - FREQUENCY OF ACCIDENTS: BOWEL MANAGEMENT(FA) - STEP 1: How many accidents has the patient had during the current shift? 0 TRANSFERS: BED, CHAIR, WHEELCHAIR: Patient requires more than one helper and/or the use of a mechanical lift is utilized TRANSFERS: BED, CHAIR, WHEELCHAIR - SCORE: 1-DEP TRANSFERS: TOILET: TRANSFERS: TOILET - STEP 1: Does the patient require the assistance of a person or device, or need extra time with toilet transfe rs? Yes. TRANSFERS: TOILET - STEP 2: Does the patient require the assistance of a helper? Yes. TRANSFERS: TOILET - STEP 3: How much assistance does the patient require from the helper? Patient performs less than half of the transferring tasks TRANSFERS: TOILET - STEP 4: Does the patient require total assistance for the toilet transfer such as the helper doing basically all the lifting? Yes. TRANSFERS: TOILET - SCORE: 1-DEP TRANSFERS: SHOWER: Activity did not occur on this shift TRANSFERS: SHOWER - SCORE: 0-UNK TRANSFERS: TUB: Activity did not occur on this shift TRANSFERS: TUB - SCORE: 0-UNK LOCOMOTION: WALK: Activity did not occur on this shift LOCOMOTION: WALK - SCORE: 0-UNK LOCOMOTION: WHEELCHAIR: LOCOMOTION: WHEELCHAIR - STEP 1: Does the patient need help to go 150 feet in a wheelchair? Yes. LOCOMOTION: WHEELCHAIR - STEP 2: How much assistance does the patient need from the helper? Only supervision, cuing, or coaxing LOCOMOTION: WHEELCHAIR - SCORE: 5-SUP COMPREHENSION: COMPREHENSION: TYPE: Both COMPREHENSION - STEP 1: Does the patient require help from a person or device, or need extra time to understand complex and a bstract ideas (such as current events, finances, discharge planning, medical issues, relationships, e tc)? No. COMPREHENSION - STEP 2: Does the patient need extra time, require an assistive device (such as glasses for visual comprehensi on or a hearing aid for auditory comprehension) or does s/he have mild difficulty understanding compl ex and abstract information? No. COMPREHENSION - SCORE: 7-IND EXPRESSION EXPRESSION: TYPE: Both EXPRESSION - STEP 1: Does the patient require help from a person or device, or need extra time expressing complex and abst ract ideas (such as current events, finances, discharge planning, medical issues, relationships, etc) ? No. EXPRESSION - STEP 2: Does the patient need extra time, require an assistive device (such as augmentive communication syste m or a communication board), OR does s/he have mild difficulty expressing complex and abstract ideas (including mild dysarthria or mild word-find problems)? No. EXPRESSION - SCORE: 7-IND SOCIAL INTERACTION: SOCIAL INTERACTION - STEP 1: Does the patient require a helper to interact with others in social and therapeutic situations? No. SOCIAL INTERACTION - STEP 2: Does the patient need extra time in social situations, OR does s/he interact with staff, other patien ts, and family members ONLY in structured environments, OR does s/he require medication for social in teraction? No. SOCIAL INTERACTION - SCORE: 7-IND PROBLEM SOLVING: PROBLEM SOLVING - STEP 1: Does the patient need help from a person or device, or need extra time to solve complex problems such as managing a checking account or confronting interpersonal problems? Yes. PROBLEM SOLVING - STEP 2: Does the patient solve basic routine problems half or more of the time? Yes. PROBLEM SOLVING - STEP 3: How often does the patient need help to solve basic routine problems? Less than 10% of the time PROBLEM SOLVING - SCORE: 5-SUP MEMORY: MEMORY - STEP 1: Does the patient need help from a person or device, or need extra time to remember frequently encount ered people, daily routines, and executing requests? No. MEMORY - STEP 2: Does the patient have slight difficulty recognizing frequently encountered people, daily routines, or executing requests without the need for repetition or using self-initiated or environmental cues to remember? No. MEMORY - SCORE: 7-IND SIGNATURE PANEL: The following modified sections: Eating - Score, Grooming - Score, Bathing - Score, Dressing - Upper Body - Score, Dressing - Lower Body - Score, Toileting - Score, Bladder Management - Score, Bowel Man agement - Score, Transfers: Bed, Chair, Wheelchair - Score, Transfers: Toilet - Score, Transfers: Kayla wer - Score, Transfers: Tub - Score, Locomotion: Walk - Score, Locomotion: Wheelchair - Score, Compre hension - Score, Expression - Score, Social Interaction - Score, Problem Solving - Score, Memory - Sc ore were [electronically] signed by Liliane Jarrett RN on MonSep 13 2018 06:30:32 GMT-0600 ([facility])
[2018-09-13 06:49] LABS: Absolute Lymphocytes (CBC) 1.2 K/uL (0.7-4.9); Absolute Monocytes 0.6 K/uL (0.1-1.3); Basophils % 0.8 % (0-1.3); Eosinophils % 3.9 % (0-4.4); Hematocrit 31.3 % (39.6-49.0); Lymphocytes % 20.1 % (15.3-44.8); MPV 7.5 fL (7.6-11.3); Monocytes % 9.8 % (3.3-12.3); RBC Red Blood Cell Count 3.59 M/uL (4.33-5.43)
[2018-09-13] MEDS: ENOXAPARIN 40 MG/0.4 ML SQ SCH (06:52)
[2018-09-13 06:59] LABS: Albumin 2.9 g/dL (3.4-5.0); BUN Blood Urea Nitrogen 17 mg/dL (7-18); Bicarbonate 28 mmol/L (21-32); Glucose Level 93 mg/dL (74-106); Potassium 4.3 mmol/L (3.5-5.1); Prealbumin 18.4 mg/dL (20-40); Sodium Level 139 mmol/L (136-145)
[2018-09-13] MEDS: AMLODIPINE 5 MG TAB PO SCH (07:58)
[2018-09-13] MEDS: RAMIPRIL 5 MG CAP PO SCH ×2 (07:59→20:08)
[2018-09-13] MEDS: MAGNESIUM OXIDE 400 MG TAB PO SCH ×2 (07:59→20:08)
[2018-09-13] MEDS: BACLOFEN 10 MG TAB PO SCH ×3 (07:59→20:08)
[2018-09-13] MEDS: PROMOD 30 ML DOSE PO SCH ×2 (08:00→20:09)
[2018-09-13] MEDS: ESCITALOPRAM 20 MG TAB PO SCH (08:00)
[2018-09-13] MEDS: LIDOCAINE 5% PATCH TOP SCH (10:15)
--- NOTE | 2018-09-13 14:21 | FAST ---
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 Daniel Mane M.D. ADMISSION DIAGNOSIS: - Orthopaedic Disorders 08 - Unilateral Hip Fracture (08.11) RIGHT FEMORAL NECK FRACTURE. EATING: EATING - STEP 1: Does the patient require the assistance of a person or device, or need extra time when eating? Yes. EATING - STEP 2: Does the patient require the assistance of a helper? Yes. EATING - STEP 3: Does the patient perform half or more of the eating tasks? Yes. EATING - STEP 4: Does the patient need only supervision, cuing, coaxing OR help to apply an orthosis OR help to cut fo od, open containers, pour liquids, or butter bread? Yes. EATING - SCORE: 5-SUP GROOMING: Oral care Wash, rinse, and dry face Wash, rinse, and dry hands GROOMING - STEP 1: Does the patient require the assistance of a person or device, or need extra time when grooming? Yes. GROOMING - STEP 2: Does the patient require the assistance of a helper? Yes. GROOMING - STEP 3: How much assistance does the patient require from the helper? Only prior equipment preparation/set up from the helper GROOMING - SCORE: 5-SUP BATHING: Activity did not occur on this shift BATHING - SCORE: 0-UNK DRESSING - UPPER BODY: T-shirt/pullover shirt (four steps) ARTICLES SCORE Total number of steps: 4 DRESSING - UPPER BODY - STEP 1: Does the patient require help from a person or device, or need extra time when dressing above the meek st? Yes. DRESSING - UPPER BODY - STEP 2: Does the patient require the assistance of a helper? Yes. DRESSING - UPPER BODY - STEP 3: Does the helper touch the patient while dressing? Yes. DRESSING - UPPER BODY - STEP 4: How many of the total steps does the patient complete on his/her own? 2 DRESSING - UPPER BODY - SCORE: 3-MOD DRESSING - LOWER BODY: Elastic waist pants (three steps) Slip-on shoe - Left foot (one step) Slip-on shoe - Right foot (one step) Sock - Left foot (one step) Sock - Right foot (one step) Tied or buckled shoe - Left foot (two steps) Tied or buckled shoe - Right foot (two steps) Underwear (three steps) ARTICLES SCORE Total number of steps: 14 DRESSING - LOWER BODY - STEP 1: Does the patient require help from a person or device, or need extra time when dressing below the meek st? Yes. DRESSING - LOWER BODY - STEP 2: Does the patient require the assistance of a helper? Yes. DRESSING - LOWER BODY - STEP 3: Does the helper touch the patient while dressing? Yes. DRESSING - LOWER BODY - STEP 4: How many of the total steps does the patient complete on his/her own? 0 DRESSING - LOWER BODY - STEP 5: Does patient require total assistance for dressing below the waist such as the helper holding clothin g and performing basically all the activities? Yes. DRESSING - LOWER BODY - SCORE: 1-DEP TOILETING: TOILETING - STEP 1: Does the patient require the assistance of a person or device, or need extra time with toileting? Yes . TOILETING - STEP 2: Does the patient require the assistance of a helper? Yes. TOILETING - STEP 3: How much assistance does the patient require from the helper? Hands-on assistance from the helper TOILETING - STEP 4: Of the 3 tasks: 1) Adjusting clothing prior to use, 2) Cleansing of perineal area, 3) Adjusting clot stephenie after use; How many tasks does the patient perform WITHOUT assistance of the helper? No tasks; h elper performs all three tasks TOILETING - SCORE: 1-DEP BLADDER MANAGEMENT: [place] removes incontinent device (Depends, pull ups, etc.); cleans the patient after accident / inco ntinent episode; and, applies new incontinent device. BLADDER MANAGEMENT - SCORE: 1-DEP BLADDER MANAGEMENT - FREQUENCY OF ACCIDENTS: BLADDER MANAGEMENT(FA) - STEP 1: How many accidents has the patient had during the current shift? 3 BOWEL MANAGEMENT: Activity did not occur on this shift BOWEL MANAGEMENT - SCORE: 7-IND BOWEL MANAGEMENT - FREQUENCY OF ACCIDENTS: BOWEL MANAGEMENT(FA) - STEP 1: How many accidents has the patient had during the current shift? 0 TRANSFERS: BED, CHAIR, WHEELCHAIR: TRANSFERS: BED, CHAIR, WHEELCHAIR - STEP 1: Does the patient require assistance of a person or device, or need extra time with bed, chair, or whe elchair transfers? Yes. TRANSFERS: BED, CHAIR, WHEELCHAIR - STEP 2: Does the patient require the assistance of a helper? Yes. TRANSFERS: BED, CHAIR, WHEELCHAIR - STEP 3: How much assistance does the patient require from the helper? Lifting of the patient TRANSFERS: BED, CHAIR, WHEELCHAIR - STEP 4: Does the helper lift the patient ONLY up? ONLY down? Up AND Down? Patient needs help with all lifting TRANSFERS: BED, CHAIR, WHEELCHAIR - SCORE: 1-DEP TRANSFERS: TOILET: TRANSFERS: TOILET - STEP 1: Does the patient require the assistance of a person or device, or need extra time with toilet transfe rs? Yes. TRANSFERS: TOILET - STEP 2: Does the patient require the assistance of a helper? Yes. TRANSFERS: TOILET - STEP 3: How much assistance does the patient require from the helper? Patient performs less than half of the transferring tasks TRANSFERS: TOILET - STEP 4: Does the patient require total assistance for the toilet transfer such as the helper doing basically all the lifting? Yes. TRANSFERS: TOILET - SCORE: 1-DEP TRANSFERS: SHOWER: Activity did not occur on this shift TRANSFERS: SHOWER - SCORE: 0-UNK TRANSFERS: TUB: Activity did not occur on this shift TRANSFERS: TUB - SCORE: 0-UNK LOCOMOTION: WALK: Activity did not occur on this shift LOCOMOTION: WALK - SCORE: 0-UNK LOCOMOTION: WHEELCHAIR: LOCOMOTION: WHEELCHAIR - STEP 1: Does the patient need help to go 150 feet in a wheelchair? Yes. LOCOMOTION: WHEELCHAIR - STEP 2: How much assistance does the patient need from the helper? Only supervision, cuing, or coaxing LOCOMOTION: WHEELCHAIR - SCORE: 5-SUP COMPREHENSION: COMPREHENSION: TYPE: Both COMPREHENSION - STEP 1: Does the patient require help from a person or device, or need extra time to understand complex and a bstract ideas (such as current events, finances, discharge planning, medical issues, relationships, e tc)? No. COMPREHENSION - STEP 2: Does the patient need extra time, require an assistive device (such as glasses for visual comprehensi on or a hearing aid for auditory comprehension) or does s/he have mild difficulty understanding compl ex and abstract information? No. COMPREHENSION - SCORE: 7-IND EXPRESSION EXPRESSION: TYPE: Both EXPRESSION - STEP 1: Does the patient require help from a person or device, or need extra time expressing complex and abst ract ideas (such as current events, finances, discharge planning, medical issues, relationships, etc) ? No. EXPRESSION - STEP 2: Does the patient need extra time, require an assistive device (such as augmentive communication syste m or a communication board), OR does s/he have mild difficulty expressing complex and abstract ideas (including mild dysarthria or mild word-find problems)? No. EXPRESSION - SCORE: 7-IND SOCIAL INTERACTION: SOCIAL INTERACTION - STEP 1: Does the patient require a helper to interact with others in social and therapeutic situations? No. SOCIAL INTERACTION - STEP 2: Does the patient need extra time in social situations, OR does s/he interact with staff, other patien ts, and family members ONLY in structured environments, OR does s/he require medication for social in teraction? No. SOCIAL INTERACTION - SCORE: 7-IND PROBLEM SOLVING: PROBLEM SOLVING - STEP 1: Does the patient need help from a person or device, or need extra time to solve complex problems such as managing a checking account or confronting interpersonal problems? Yes. PROBLEM SOLVING - STEP 2: Does the patient solve basic routine problems half or more of the time? Yes. PROBLEM SOLVING - STEP 3: How often does the patient need help to solve basic routine problems? Less than 10% of the time PROBLEM SOLVING - SCORE: 5-SUP MEMORY: MEMORY - STEP 1: Does the patient need help from a person or device, or need extra time to remember frequently encount ered people, daily routines, and executing requests? No. MEMORY - STEP 2: Does the patient have slight difficulty recognizing frequently encountered people, daily routines, or executing requests without the need for repetition or using self-initiated or environmental cues to remember? No. MEMORY - SCORE: 7-IND SIGNATURE PANEL: The following modified sections: Eating - Score, Grooming - Score, Bathing - Score, Dressing - Upper Body - Score, Dressing - Lower Body - Score, Toileting - Score, Bladder Management - Score, Bowel Man agement - Score, Transfers: Bed, Chair, Wheelchair - Score, Transfers: Toilet - Score, Transfers: Kayla wer - Score, Transfers: Tub - Score, Locomotion: Walk - Score, Locomotion: Wheelchair - Score, Compre hension - Score, Expression - Score, Social Interaction - Score, Problem Solving - Score, Memory - Sc ore were [electronically] signed by Dasha Wei C.N.A. on MonSep 13 2018 14:20:02 GMT-0600 ([facility] [place])
--- NOTE | 2018-09-13 15:02 | FAST ---
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 Daniel Mane M.D. ADMISSION DIAGNOSIS: - Orthopaedic Disorders 08 - Unilateral Hip Fracture (08.11) RIGHT FEMORAL NECK FRACTURE. EATING: Activity did not occur on this shift EATING - SCORE: 0-UNK GROOMING: Activity did not occur on this shift GROOMING - SCORE: 0-UNK BATHING: Activity did not occur on this shift BATHING - SCORE: 0-UNK DRESSING - UPPER BODY: Activity did not occur on this shift Patient is not dressing in public clothing ARTICLES SCORE Total number of steps: 0 DRESSING - UPPER BODY - SCORE: 0-UNK DRESSING - LOWER BODY: Activity did not occur on this shift Patient is not dressing in public clothing ARTICLES SCORE Total number of steps: 0 DRESSING - LOWER BODY - SCORE: 0-UNK TOILETING: Activity did not occur on this shift TOILETING - SCORE: 0-UNK BLADDER MANAGEMENT: Activity did not occur on this shift BLADDER MANAGEMENT - SCORE: 7-IND BOWEL MANAGEMENT: Activity did not occur on this shift BOWEL MANAGEMENT - SCORE: 7-IND TRANSFERS: BED, CHAIR, WHEELCHAIR: TRANSFERS: BED, CHAIR, WHEELCHAIR - STEP 1: Does the patient require assistance of a person or device, or need extra time with bed, chair, or whe elchair transfers? Yes. TRANSFERS: BED, CHAIR, WHEELCHAIR - STEP 2: Does the patient require the assistance of a helper? Yes. TRANSFERS: BED, CHAIR, WHEELCHAIR - STEP 3: How much assistance does the patient require from the helper? Lifting of the patient TRANSFERS: BED, CHAIR, WHEELCHAIR - STEP 4: Does the helper lift the patient ONLY up? ONLY down? Up AND Down? Up AND Down. TRANSFERS: BED, CHAIR, WHEELCHAIR - SCORE: 2-MAX TRANSFERS: TOILET: Activity did not occur on this shift TRANSFERS: TOILET - SCORE: 0-UNK TRANSFERS: SHOWER: Activity did not occur on this shift TRANSFERS: SHOWER - SCORE: 0-UNK TRANSFERS: TUB: Activity did not occur on this shift TRANSFERS: TUB - SCORE: 0-UNK LOCOMOTION: WALK: Activity did not occur on this shift LOCOMOTION: WALK - SCORE: 0-UNK LOCOMOTION: WHEELCHAIR: LOCOMOTION: WHEELCHAIR - STEP 1: Does the patient need help to go 150 feet in a wheelchair? Yes. LOCOMOTION: WHEELCHAIR - STEP 2: How much assistance does the patient need from the helper? Only supervision, cuing, or coaxing LOCOMOTION: WHEELCHAIR - SCORE: 5-SUP LOCOMOTION: STAIRS: Activity did not occur on this shift LOCOMOTION: STAIRS - SCORE: 0-UNK COMPREHENSION: COMPREHENSION - SCORE: 0-UNK EXPRESSION EXPRESSION - SCORE: 0-UNK SOCIAL INTERACTION: SOCIAL INTERACTION - SCORE: 0-UNK PROBLEM SOLVING: PROBLEM SOLVING - SCORE: 0-UNK MEMORY: MEMORY - SCORE: 0-UNK SIGNATURE PANEL: The following modified sections: Transfers: Bed, Chair, Wheelchair - Score, Transfers: Toilet - Score , Locomotion: Walk - Score, Locomotion: Wheelchair - Score, Locomotion: Stairs - Score were [electron ically] signed by Jacky Santoro PT on MonSep 13 2018 15:01:09 GMT-0600 (Central Standard Time)
--- NOTE | 2018-09-13 15:03 | FAST ---
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 Daniel Mane M.D. ADMISSION DIAGNOSIS: - Orthopaedic Disorders 08 - Unilateral Hip Fracture (08.11) RIGHT FEMORAL NECK FRACTURE. EATING: Activity did not occur on this shift EATING - SCORE: 0-UNK GROOMING: Activity did not occur on this shift GROOMING - SCORE: 0-UNK BATHING: Activity did not occur on this shift BATHING - SCORE: 0-UNK DRESSING - UPPER BODY: Activity did not occur on this shift Patient is not dressing in public clothing ARTICLES SCORE Total number of steps: 0 DRESSING - UPPER BODY - SCORE: 0-UNK DRESSING - LOWER BODY: Activity did not occur on this shift Patient is not dressing in public clothing ARTICLES SCORE Total number of steps: 0 DRESSING - LOWER BODY - SCORE: 0-UNK TOILETING: Activity did not occur on this shift TOILETING - SCORE: 0-UNK BLADDER MANAGEMENT: Activity did not occur on this shift BLADDER MANAGEMENT - SCORE: 7-IND BOWEL MANAGEMENT: Activity did not occur on this shift BOWEL MANAGEMENT - SCORE: 7-IND TRANSFERS: BED, CHAIR, WHEELCHAIR: TRANSFERS: BED, CHAIR, WHEELCHAIR - STEP 1: Does the patient require assistance of a person or device, or need extra time with bed, chair, or whe elchair transfers? Yes. TRANSFERS: BED, CHAIR, WHEELCHAIR - STEP 2: Does the patient require the assistance of a helper? Yes. TRANSFERS: BED, CHAIR, WHEELCHAIR - STEP 3: How much assistance does the patient require from the helper? Lifting of the patient TRANSFERS: BED, CHAIR, WHEELCHAIR - STEP 4: Does the helper lift the patient ONLY up? ONLY down? Up AND Down? Up AND Down. TRANSFERS: BED, CHAIR, WHEELCHAIR - SCORE: 2-MAX TRANSFERS: TOILET: Activity did not occur on this shift TRANSFERS: TOILET - SCORE: 0-UNK TRANSFERS: SHOWER: Activity did not occur on this shift TRANSFERS: SHOWER - SCORE: 0-UNK TRANSFERS: TUB: Activity did not occur on this shift TRANSFERS: TUB - SCORE: 0-UNK LOCOMOTION: WALK: Activity did not occur on this shift LOCOMOTION: WALK - SCORE: 0-UNK LOCOMOTION: WHEELCHAIR: LOCOMOTION: WHEELCHAIR - STEP 1: Does the patient need help to go 150 feet in a wheelchair? Yes. LOCOMOTION: WHEELCHAIR - STEP 2: How much assistance does the patient need from the helper? Only supervision, cuing, or coaxing LOCOMOTION: WHEELCHAIR - SCORE: 5-SUP LOCOMOTION: STAIRS: Activity did not occur on this shift LOCOMOTION: STAIRS - SCORE: 0-UNK COMPREHENSION: COMPREHENSION - SCORE: 0-UNK EXPRESSION EXPRESSION - SCORE: 0-UNK SOCIAL INTERACTION: SOCIAL INTERACTION - SCORE: 0-UNK PROBLEM SOLVING: PROBLEM SOLVING - SCORE: 0-UNK MEMORY: MEMORY - SCORE: 0-UNK SIGNATURE PANEL: The following modified sections: Transfers: Bed, Chair, Wheelchair - Score, Transfers: Toilet - Score , Locomotion: Walk - Score, Locomotion: Wheelchair - Score, Locomotion: Stairs - Score were [electron ically] signed by Jacky Santoro PT on MonSep 13 2018 15:02:27 GMT-0600 (Central Standard Time)
--- NOTE | 2018-09-13 15:06 | RAD REPORT ---
EXAM DESCRIPTION: RAD - Chest Single View - 09/13/2018 2:55 pm CLINICAL HISTORY: Pneumonia COMPARISON: September 09 TECHNIQUE: AP portable chest image was obtained 1454 hours . FINDINGS: Lung volumes are low. Right base opacification has significantly improved. Left base also shows improvement. No failure or volume overload. Sternotomy wires are in place. Heart and vasculatur e are normal. No measurable pleural effusion and no pneumothorax. No acute bony abnormality seen. No acute aortic findings suspected. IMPRESSION: Significant improvement in the aeration of the right lung base. Left base opacification has diminished as well.
[2018-09-13] MEDS ORDERED: FLEET ENEMA ADULT PR PRN (15:08)
[2018-09-13] MEDS: MAGNESIUM HYDROXIDE 8% 30 ML PO PRN (15:13)
--- NOTE | 2018-09-13 17:47 | R.PN ---
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 Pt denied any Shortness of Breath. Mr. 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 His right lower extremity spastic dorsiflexion is not likely due complications following surgery. Ambulated 5' using hemiwalker requiring maximum assistance. Reports muscle spasms in right thigh. On baclofen 10 mg tid, will add magnesium oxide 400 mg bid. Hgb 10.7, prealbumin 16.8, albumin 3.0, UA is wnl. Propelled wheelchair 410' with standby assistance. VITAL SIGNS Temperature: 97.4 F SBP/DBP: 140/78 Pulse: 94 Resp: 16 MEDICATION ALLERGIES: Sulfa ENVIRONMENTAL ALLERGIES: None Known - Substance Allergies None Known - Other Allergies None Known NURSING: - Shower allowing shower - Skin care per protocol PRECAUTIONS: - Posterior Hip Precaution No adduction across midline No external rotation No hip flexion >90 degrees No internal rotation No wheel chair propulsion - Weight Bearing Precaution WBAT right LE ACTIVITIES OOB only with supervision THERAPIES: - Occupational Therapy Evaluate and Treat. - Physical Therapy Evaluate and Treat. PHYSICAL EXAM - Gen Alert and awake Lying in bed No apparent distress Oriented to: person, time, and place - Skin No breakdown No abnormalities - Eyes No abnormalities - ENMT No abnormalities - Neck No abnormalities - CVS RRR - Chest No abnormalities - Abd + bowel sounds - GI Soft Deferred - No abnormalities - Ext Right hip surgical site has good hemostasis. - MSK 4+/5 weakness in right lower extremity. - Neuro 4/5 strength right lower extremity. - Psych No abnormalities ASSESSMENT: Pt. is a 68 yo Right-handed white male.On 09/07/2018 he was admitted to [facility] with diagnosis RIGHT FEMORAL NECK FRACTURE.His impairment category is Orthopaedic Disorders 08 - Unilateral Hip Fracture (08.11).Pre-morbidly, Pt. was independent/mod-I in Sphincter Control, Transf ers Control, Communication, Social Cognition, Self-Care, and Locomotion; and he had good Sphincter Co ntrol.Currently, he has deficits of Endurance, Safety Awareness, Transfers Control, Balance, Self-Car e, and Locomotion.Pt. is now referred to [facility] for acute in-patient rehab ilitation in order to maximize patient's functional independence in activities of daily living, stren gth, ROM, and mobility.- Rehab Goal Patient has realistic goal of being discharged at assistance level 6-Henny to reside at Home with Fam liana/Relatives. MDM/PLAN: - Physical Therapy Decreased range of motion - to improve, our physical therapists will perform initial evaluation of p t's status upon admission and devise an individualized program for increasing patient's Range of William on. Gait dysfunction - to improve, our physical therapists will perform initial evaluation of pt's statu s upon admission and devise an individualized program for Gait Training, and Wheel Chair mobility Inability to transfer - to improve, our physical therapists will perform initial evaluation of pt's status upon admission and devise an individualized program for Bed mobility Need for home safety evaluation - to improve, our physical therapists will perform initial evaluatio n of pt's status upon admission and devise an individualized program for Home Evaluation Need in caregiver upon discharge - to improve, our physical therapists will perform initial evaluati on of pt's status upon admission and devise an individualized program for Caregiver Training New precaution - to improve, our physical therapists will perform initial evaluation of pt's status upon admission and devise an individualized program for Patient precaution education Poor balance - to improve, our physical therapists will perform initial evaluation of pt's status up on admission and devise an individualized program for Balance Training Poor endurance - to improve, our physical therapists will perform initial evaluation of pt's status upon admission and devise an individualized program for Endurance Training Weakness - to improve, our physical therapists will perform initial evaluation of pt's status upon a dmission and devise an individualized program for Aquatic Therapy, Neuromuscular Reeducation, and Str engthening Achieving independence - to improve, our physical therapists will perform initial evaluation of pt's status upon admission and devise an individualized program for Community Reintegration Activities - Occupational Therapy ADL deficits - to improve, our occupation therapists will perform initial evaluation of pt's status upon admission and devise an individualized program for Bathing, Bed mobility, Community Reintegratio n, Cooking, Dressing, Eating, Fine Motor Skills, Grooming, Homemaking, Kitchen Mobility, Laundry, Pat ient Education, Safety Awareness, Splinting - Positioning, Transfers(Toilet, Tub, Shower), and Wheel Chair Management Need for patient care coordinator - to improve, our occupation therapists will perform initial evaluation of pt's status upon admission and devise an individualized program for Caregiver Training Weakness - to improve, our occupation therapists will perform initial evaluation of pt's status upon admission and devise an individualized program for Aquatic Therapy, Balance, Endurance, UE ROM, and UE strengthening - Anterior Hip Precaution No abduction No active extension No adduction across midline No external rotation No hip flexion >90 degrees No internal rotation - Diet - Liquid Texture Continue Regular - Tube Feed Continue N/A - Diet Type Continue Heart Healthy - Posterior Hip Precaution No adduction across midline No external rotation No hip flexion >90 degrees No internal rotation No wheel chair propulsion - Weight Bearing Precaution WBAT right LE - Skin care per protocol - Diet - Solid Texture Continue Regular - Shower allowing shower FUNCTIONAL STATUS: UPDATED AT WEEKLY TEAM CONFERENCE - Bladder Same accident frequency: 7-Ind - No accidents in the past 7 days - Bowel Same accident frequency: 7-Ind - No accidents in the past 7 days - Walking Same score based on distance walked: 0(N/A) - Wheelchair Same score based on distance traveled: 0(N/A) FUNCTIONAL STATUS: - Self-Care A. Eating sup B. Grooming sup C. Bathing sup D. Dressing - Upper sup E. Dressing - Lower Ruddy F. Toileting modA - Sphincter Control G: Bladder control Ind H: Bowel control Ind - Transfers Control I. Bed/Chair/Wheelchair modA J. Toilet modA K. Tub/Shower ADNO - Locomotion L. Walk/Wheelchair (C) modA L. Walk/Wheelchair (W) modA M. Stairs ADNO - Communication N. Comprehension (B) Henny O. Expression (B) Henny - Social Cognition P. Social Interaction Henny Q. Problem Solving Henny R. Memory Henny - Endurance Poor - Balance Poor - Safety Awareness Fair CURRENT FUNC. 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
[2018-09-13] MEDS: DOCUSATE NA/SENNA CONC 1 TAB PO SCH (20:08)
[2018-09-14] MEDS: HYDROCODONE/APAP 5/325 MG TAB PO PRN ×4 (00:51→16:08)
[2018-09-14] MEDS: PIPER/TAZO/NS 3.375gm 3.375 GM/100 ML BAG IVPB SCH ×3 (00:51→16:07)
--- NOTE | 2018-09-14 01:40 | FAST ---
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 Daniel Mane M.D. ADMISSION DIAGNOSIS: - Orthopaedic Disorders 08 - Unilateral Hip Fracture (08.11) RIGHT FEMORAL NECK FRACTURE. EATING: Activity did not occur on this shift EATING - SCORE: 0-UNK GROOMING: Activity did not occur on this shift GROOMING - SCORE: 0-UNK BATHING: Activity did not occur on this shift BATHING - SCORE: 0-UNK DRESSING - UPPER BODY: Patient is not dressing in public clothing ARTICLES SCORE Total number of steps: 0 DRESSING - UPPER BODY - SCORE: 0-UNK DRESSING - LOWER BODY: Patient is not dressing in public clothing ARTICLES SCORE Total number of steps: 0 DRESSING - LOWER BODY - SCORE: 0-UNK TOILETING: Activity did not occur on this shift TOILETING - SCORE: 0-UNK BLADDER MANAGEMENT: [place] removes incontinent device (Depends, pull ups, etc.); cleans the patient after accident / inco ntinent episode; and, applies new incontinent device. BLADDER MANAGEMENT - SCORE: 1-DEP BLADDER MANAGEMENT - FREQUENCY OF ACCIDENTS: BLADDER MANAGEMENT(FA) - STEP 1: How many accidents has the patient had during the current shift? 1 BOWEL MANAGEMENT: Activity did not occur on this shift BOWEL MANAGEMENT - SCORE: 7-IND TRANSFERS: BED, CHAIR, WHEELCHAIR: Activity did not occur on this shift TRANSFERS: BED, CHAIR, WHEELCHAIR - SCORE: 0-UNK TRANSFERS: TOILET: Activity did not occur on this shift TRANSFERS: TOILET - SCORE: 0-UNK TRANSFERS: SHOWER: Activity did not occur on this shift TRANSFERS: SHOWER - SCORE: 0-UNK TRANSFERS: TUB: Activity did not occur on this shift TRANSFERS: TUB - SCORE: 0-UNK LOCOMOTION: WALK: Activity did not occur on this shift LOCOMOTION: WALK - SCORE: 0-UNK LOCOMOTION: WHEELCHAIR: Activity did not occur on this shift LOCOMOTION: WHEELCHAIR - SCORE: 0-UNK COMPREHENSION: COMPREHENSION: TYPE: Both COMPREHENSION - STEP 1: Does the patient require help from a person or device, or need extra time to understand complex and a bstract ideas (such as current events, finances, discharge planning, medical issues, relationships, e tc)? Yes. COMPREHENSION - STEP 2: Does the patient require help to understand questions or statements about basic needs or ideas (such as hunger, thirst, sleep, safety, daily schedule, room location, or discomfort) half or more of the t madeleine? No. COMPREHENSION - STEP 3: How often does the patient need help to understand directions and conversation about basic needs? 10% - 24% of the time COMPREHENSION - SCORE: 4-MIN EXPRESSION EXPRESSION: TYPE: Both EXPRESSION - STEP 1: Does the patient require help from a person or device, or need extra time expressing complex and abst ract ideas (such as current events, finances, discharge planning, medical issues, relationships, etc) ? Yes. EXPRESSION - STEP 2: Does the patient require help to express basic necessities or ideas (such as hunger, thirst, sleep, s afety, daily schedule, room location, or discomfort) half or more of the time? No. EXPRESSION - STEP 3: How often does the patient need help to express directions and conversation about basic needs? 10-24% of the time EXPRESSION - SCORE: 4-MIN SOCIAL INTERACTION: SOCIAL INTERACTION - STEP 1: Does the patient require a helper to interact with others in social and therapeutic situations? No. SOCIAL INTERACTION - STEP 2: Does the patient need extra time in social situations, OR does s/he interact with staff, other patien ts, and family members ONLY in structured environments, OR does s/he require medication for social in teraction? Yes, patient needs extra time SOCIAL INTERACTION - SCORE: 6-ROBBY PROBLEM SOLVING: PROBLEM SOLVING - STEP 1: Does the patient need help from a person or device, or need extra time to solve complex problems such as managing a checking account or confronting interpersonal problems? Yes. PROBLEM SOLVING - STEP 2: Does the patient solve basic routine problems half or more of the time? Yes. PROBLEM SOLVING - STEP 3: How often does the patient need help to solve basic routine problems? 10%-24% of the time PROBLEM SOLVING - SCORE: 4-MIN MEMORY: MEMORY - STEP 1: Does the patient need help from a person or device, or need extra time to remember frequently encount ered people, daily routines, and executing requests? No. MEMORY - STEP 2: Does the patient have slight difficulty recognizing frequently encountered people, daily routines, or executing requests without the need for repetition or using self-initiated or environmental cues to remember? Yes. MEMORY - SCORE: 6-ROBBY SIGNATURE PANEL: The following modified sections: Eating - Score, Grooming - Score, Dressing - Upper Body - Score, Joseph ssing - Lower Body - Score, Toileting - Score, Bladder Management - Score, Bowel Management - Score, Transfers: Bed, Chair, Wheelchair - Score, Transfers: Toilet - Score, Transfers: Shower - Score, Gupta sfers: Tub - Score, Locomotion: Walk - Score, Locomotion: Wheelchair - Score, Comprehension - Score, Expression - Score, Social Interaction - Score, Problem Solving - Score, Memory - Score were [electro nically] signed by Isabela Arshad CNA on MonSep 14 2018 01:39:41 GMT-0600 (Central Standard Time)
[2018-09-14] MEDS: ALBUTEROL 2.5 MG/3 ML NEB SOL NEB SCH ×4 (02:00→20:15)
[2018-09-14] MEDS: TRAMADOL HCL 50 MG TAB PO PRN ×3 (03:21→19:54)
[2018-09-14] MEDS: ENOXAPARIN 40 MG/0.4 ML SQ SCH (07:54)
[2018-09-14] MEDS: LIDOCAINE 5% PATCH TOP SCH (07:55)
[2018-09-14] MEDS: ESCITALOPRAM 20 MG TAB PO SCH (07:55)
[2018-09-14] MEDS: MAGNESIUM OXIDE 400 MG TAB PO SCH ×2 (07:55→19:52)
[2018-09-14] MEDS: AMLODIPINE 5 MG TAB PO SCH (07:56)
[2018-09-14] MEDS: RAMIPRIL 5 MG CAP PO SCH ×2 (07:57→19:53)
[2018-09-14] MEDS: PROMOD 30 ML DOSE PO SCH ×2 (07:58→19:54)
[2018-09-14] MEDS: BACLOFEN 10 MG TAB PO SCH ×3 (07:59→20:20)
--- NOTE | 2018-09-14 09:12 | FAST ---
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 Daniel Mane M.D. ADMISSION DIAGNOSIS: - Orthopaedic Disorders 08 - Unilateral Hip Fracture (08.11) RIGHT FEMORAL NECK FRACTURE. EATING: EATING - STEP 1: Does the patient require the assistance of a person or device, or need extra time when eating? Yes. EATING - STEP 2: Does the patient require the assistance of a helper? Yes. EATING - STEP 3: Does the patient perform half or more of the eating tasks? Yes. EATING - STEP 4: Does the patient need only supervision, cuing, coaxing OR help to apply an orthosis OR help to cut fo od, open containers, pour liquids, or butter bread? Yes. EATING - SCORE: 5-SUP GROOMING: GROOMING - STEP 1: Does the patient require the assistance of a person or device, or need extra time when grooming? Yes. GROOMING - STEP 2: Does the patient require the assistance of a helper? Yes. GROOMING - STEP 3: How much assistance does the patient require from the helper? Only prior equipment preparation/set up from the helper GROOMING - SCORE: 5-SUP BATHING: Activity did not occur on this shift BATHING - SCORE: 0-UNK DRESSING - UPPER BODY: T-shirt/pullover shirt (four steps) ARTICLES SCORE Total number of steps: 4 DRESSING - UPPER BODY - STEP 1: Does the patient require help from a person or device, or need extra time when dressing above the meek st? Yes. DRESSING - UPPER BODY - STEP 2: Does the patient require the assistance of a helper? Yes. DRESSING - UPPER BODY - STEP 3: Does the helper touch the patient while dressing? Yes. DRESSING - UPPER BODY - STEP 4: How many of the total steps does the patient complete on his/her own? 1 DRESSING - UPPER BODY - STEP 5: Does Patient require total assistance for dressing above the waist such as the helper holding clothin g and performing basically all the activities? Yes. DRESSING - UPPER BODY - SCORE: 1-DEP DRESSING - LOWER BODY: Elastic waist pants (three steps) Slip-on shoe - Left foot (one step) Slip-on shoe - Right foot (one step) ARTICLES SCORE Total number of steps: 5 DRESSING - LOWER BODY - STEP 1: Does the patient require help from a person or device, or need extra time when dressing below the meek st? Yes. DRESSING - LOWER BODY - STEP 2: Does the patient require the assistance of a helper? Yes. DRESSING - LOWER BODY - STEP 3: Does the helper touch the patient while dressing? Yes. DRESSING - LOWER BODY - STEP 4: How many of the total steps does the patient complete on his/her own? 0 DRESSING - LOWER BODY - STEP 5: Does patient require total assistance for dressing below the waist such as the helper holding clothin g and performing basically all the activities? Yes. DRESSING - LOWER BODY - SCORE: 1-DEP TOILETING: TOILETING - STEP 1: Does the patient require the assistance of a person or device, or need extra time with toileting? Yes . TOILETING - STEP 2: Does the patient require the assistance of a helper? Yes. TOILETING - STEP 3: How much assistance does the patient require from the helper? Hands-on assistance from the helper TOILETING - STEP 4: Of the 3 tasks: 1) Adjusting clothing prior to use, 2) Cleansing of perineal area, 3) Adjusting clot stephenie after use; How many tasks does the patient perform WITHOUT assistance of the helper? Two tasks TOILETING - SCORE: 3-MOD BLADDER MANAGEMENT: Albia removes incontinent device (Depends, pull ups, etc.); cleans the patient after accident / inco ntinent episode; and, applies new incontinent device. BLADDER MANAGEMENT - SCORE: 1-DEP BLADDER MANAGEMENT - FREQUENCY OF ACCIDENTS: BLADDER MANAGEMENT(FA) - STEP 1: How many accidents has the patient had during the current shift? 0 BOWEL MANAGEMENT: BOWEL MANAGEMENT - STEP 1: Does the patient control bowels completely and intentionally without equipment devices or medications AND is always continent? No. BOWEL MANAGEMENT - STEP 2: Does the patient require the assistance of a helper? Yes. BOWEL MANAGEMENT - STEP 3: How much assistance does the patient require from the helper? Patient requires moderate assistance - performs 50% to 74% of bowel management tasks BOWEL MANAGEMENT - SCORE: 3-MOD BOWEL MANAGEMENT - FREQUENCY OF ACCIDENTS: BOWEL MANAGEMENT(FA) - STEP 1: How many accidents has the patient had during the current shift? 0 TRANSFERS: BED, CHAIR, WHEELCHAIR: TRANSFERS: BED, CHAIR, WHEELCHAIR - STEP 1: Does the patient require assistance of a person or device, or need extra time with bed, chair, or whe elchair transfers? Yes. TRANSFERS: BED, CHAIR, WHEELCHAIR - STEP 2: Does the patient require the assistance of a helper? Yes. TRANSFERS: BED, CHAIR, WHEELCHAIR - STEP 3: How much assistance does the patient require from the helper? Lifting of the patient TRANSFERS: BED, CHAIR, WHEELCHAIR - STEP 4: Does the helper lift the patient ONLY up? ONLY down? Up AND Down? Patient needs help with all lifting TRANSFERS: BED, CHAIR, WHEELCHAIR - SCORE: 1-DEP TRANSFERS: TOILET: TRANSFERS: TOILET - STEP 1: Does the patient require the assistance of a person or device, or need extra time with toilet transfe rs? Yes. TRANSFERS: TOILET - STEP 2: Does the patient require the assistance of a helper? Yes. TRANSFERS: TOILET - STEP 3: How much assistance does the patient require from the helper? Patient performs less than half of the transferring tasks TRANSFERS: TOILET - STEP 4: Does the patient require total assistance for the toilet transfer such as the helper doing basically all the lifting? Yes. TRANSFERS: TOILET - SCORE: 1-DEP TRANSFERS: SHOWER: Activity did not occur on this shift TRANSFERS: SHOWER - SCORE: 0-UNK TRANSFERS: TUB: Activity did not occur on this shift TRANSFERS: TUB - SCORE: 0-UNK LOCOMOTION: WALK: Activity did not occur on this shift LOCOMOTION: WALK - SCORE: 0-UNK LOCOMOTION: WHEELCHAIR: Activity did not occur on this shift LOCOMOTION: WHEELCHAIR - SCORE: 0-UNK COMPREHENSION: COMPREHENSION - SCORE: 0-UNK EXPRESSION EXPRESSION - SCORE: 0-UNK SOCIAL INTERACTION: SOCIAL INTERACTION - SCORE: 0-UNK PROBLEM SOLVING: PROBLEM SOLVING - SCORE: 0-UNK MEMORY: MEMORY - SCORE: 0-UNK SIGNATURE PANEL: The following modified sections: Eating - Score, Grooming - Score, Bathing - Score, Dressing - Upper Body - Score, Dressing - Lower Body - Score, Toileting - Score, Bladder Management - Score, Bowel Man agement - Score, Transfers: Bed, Chair, Wheelchair - Score, Transfers: Toilet - Score, Transfers: Kayla wer - Score, Transfers: Tub - Score, Locomotion: Walk - Score, Locomotion: Wheelchair - Score, Compre hension - Score, Expression - Score, Social Interaction - Score, Problem Solving - Score, Memory - Sc ore were [electronically] signed by Diana Crawford CNA on MonSep 14 2018 09:11:12 GMT-0600 ([facility] Standard Time)
--- NOTE | 2018-09-14 09:35 | P.RH.PN ---
Estimated Length of Stay: 16 Expected Discharge Date: 09/25/18 Discharge Disposition Plan: Home Family Support: Yes Halfway Goal: Mobility, Transfers, Self Care Vital Signs: Last Vital Signs Temp 97.6 F 09/14/18 06:35 Pulse 80 09/14/18 07:57 Resp 16 09/14/18 06:35 BP 136/75 09/14/18 07:57 Pulse Ox 97 09/14/18 06:35 Laboratory: Laboratory Last Values WBC 6.2 K/uL (4.3-10.9) 09/13/18 06:20 RBC 3.59 M/uL (4.33-5.43) L 09/13/18 06:20 Hgb 10.6 g/dL (13.6-17.9) L 09/13/18 06:20 Hct 31.3 % (39.6-49.0) L 09/13/18 06:20 MCV 87.2 fL (80-100) 09/13/18 06:20 MCH 29.6 pg (27.0-35.0) 09/13/18 06:20 MCHC 33.9 g/dL (32.0-36.0) 09/13/18 06:20 RDW 14.2 % (12.1-15.2) 09/13/18 06:20 Plt Count 312 K/uL (152-406) 09/13/18 06:20 MPV 7.5 fL (7.6-11.3) L 09/13/18 06:20 Neutrophils % 65.4 % (41.7-73.7) 09/13/18 06:20 Lymphocytes % 20.1 % (15.3-44.8) 09/13/18 06:20 Monocytes % 9.8 % (3.3-12.3) 09/13/18 06:20 Eosinophils % 3.9 % (0-4.4) 09/13/18 06:20 Basophils % 0.8 % (0-1.3) 09/13/18 06:20 Absolute Neutrophils 4.0 K/uL (1.8-8.0) 09/13/18 06:20 Absolute Lymphocytes 1.2 K/uL (0.7-4.9) 09/13/18 06:20 Absolute Monocytes 0.6 K/uL (0.1-1.3) 09/13/18 06:20 Absolute Eosinophils 0.2 K/uL (0-0.5) 09/13/18 06:20 Absolute Basophils 0.1 K/uL (0-0.5) 09/13/18 06:20 Sodium 139 mmol/L (136-145) 09/13/18 06:20 Potassium 4.3 mmol/L (3.5-5.1) 09/13/18 06:20 Chloride 106 mmol/L (98-107) 09/13/18 06:20 Carbon Dioxide 28 mmol/L (21-32) 09/13/18 06:20 BUN 17 mg/dL (7-18) 09/13/18 06:20 Creatinine 0.84 mg/dL (0.55-1.3) 09/13/18 06:20 Estimated GFR > 90 mL/min (=/>90) 09/13/18 06:20 Glucose 93 mg/dL (74-106) 09/13/18 06:20 Calcium 8.6 mg/dL (8.5-10.1) 09/13/18 06:20 Magnesium 2.4 mg/dL (1.8-2.4) 09/11/18 06:23 Albumin 2.9 g/dL (3.4-5.0) L 09/13/18 06:20 Prealbumin 18.4 mg/dL (20-40) L 09/13/18 06:20 Urine Color Yellow 09/10/18 19:24 Urine Appearance Clear 09/10/18 19:24 Urine pH 8.0 (5.0-7.0) H 09/10/18 19:24 Ur Specific [place] 1.015 (1.005-1.030) 09/10/18 19:24 Urine Ketones Negative (NEG) 09/10/18 19:24 Urine Blood Negative (NEG) 09/10/18 19:24 Urine Nitrite Negative (NEG) 09/10/18 19:24 Urine Bilirubin Negative (NEG) 09/10/18 19:24 Urine Urobilinogen 1.0 mg/dL (0.2-1.0) 09/10/18 19:24 Ur Leukocyte Esterase Negative (NEG) 09/10/18 19:24 Urine RBC <5 /HPF (NONE SEEN) 02/04/19 19:24 Urine WBC <5 /HPF (<5) 09/10/18 19:24 Ur Squamous Epith Cells <5 /HPF (NONE SEEN) 09/10/18 19:24 Urine Bacteria None seen /HPF (NONE SEEN) 09/10/18 19:24 Urine Culture Reflexed Not needed 09/10/18 19:24 Urine Glucose Negative (NEG) 09/10/18 19:24 Urine Total Protein Negative (NEG) 09/10/18 19:24 Weight: 176 lb 1.6 oz Wound Present: No Closed Surgical Incision Present: Yes Negative Pressure Wound Therapy Present: No Physician Update: Labs have been reviewed and CBCs is stable. His right thigh and leg spasms are worse. Will increase baclofen to 20 mg bid and do stretching before mobilization. Medical Issues: Zosyn 3.375gm Q8H IVPB Pain Issues: Lidoderm patch 5% Daily. Tramadol 50mg Q4H PRN. [place] 5/325mg Q4H PRN Functional Improvement: pt has demonstrated a good desire to participate and work hard. pt has been limited by pain recently and feelings of SoB. pt continues to require skilled PT services to enhance functional performance and safety. Speech Therapy Update: Patient performance is sometimes limited by c/o pain and/ or dizziness. Patient required MOD I for auditory comprehension, MIN to MOD A for verbal expression, and MOD I for social interaction. He is at MOD I for memory and MIN A for problem solving. Summary: Patient's care plan and snf goals have been reviewed and revised as necessary. Please see the Rehabilitation Signature page for all necessary signatures.
--- NOTE | 2018-09-14 11:02 | PN ---
Date of Progress Note: 09/13/2018 Subjective: The patient was seen this morning for followup. No new complaints or problems reported by patient. Overall he feels better. Objective: Vital Signs: Reviewed. HEENT: Examination unremarkable. Lungs: Clear to auscultation. No rhonchi. No rales. Heart: Sounds normal. Abdomen: Soft. Bowel sounds normal. No guarding, rigidity, tenderness, distention. Extremities: No leg edema. Laboratory Data: White count 6.2, hemoglobin 10.6, platelets 312. Sodium 139, potassium 4.3, chlori de 106, bicarb 28, BUN 17, creatinine 0.84, glucose 93. Impression: 1.Right hip fracture. 2.Anemia due to acute blood loss. 3.Hypertension. 4.Stroke with right-sided hemiparesis. 5.Constipation. 6.Aspiration pneumonia. Plan: We will go ahead and continue current IV antibiotics. Continue DVT prophylaxis with Lovenox a nd antihypertensive medication. We will continue physical therapy under guidance of Dr. Mane. W e will get a chest x-ray done today for followup. Details were discussed with Dr. Mane regarding right footdrop that patient has and conservative treatment was recommended. DAWNA/MODL Voice ID: [id number] Report ID: [id number]
--- NOTE | 2018-09-14 12:31 | FAST ---
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 Daniel Mane M.D. ADMISSION DIAGNOSIS: - Orthopaedic Disorders 08 - Unilateral Hip Fracture (08.11) RIGHT FEMORAL NECK FRACTURE. EATING: Activity did not occur on this shift EATING - SCORE: 0-UNK GROOMING: Wash, rinse, and dry face Wash, rinse, and dry hands GROOMING - STEP 1: Does the patient require the assistance of a person or device, or need extra time when grooming? Yes. GROOMING - STEP 2: Does the patient require the assistance of a helper? Yes. GROOMING - STEP 3: How much assistance does the patient require from the helper? Cuing, coaxing, instructions, or encour agement for completion of grooming GROOMING - SCORE: 5-SUP BATHING: Abdomen Buttocks Chest Left arm Left lower leg and foot Left upper leg Perineal area Right arm Right lower leg and foot Right upper leg BATHING - STEP 1: Does the patient require the assistance of a person or device, or need extra time when bathing? Yes. BATHING - STEP 2: Does the patient require the assistance of a helper? Yes. BATHING - STEP 3: How much assistance does the patient require from the helper? Only incidental help such as placement of a wash cloth in his/her hand a few times as s/he bathes OR help to bathe just one or two areas of the body BATHING - SCORE: 4-MIN DRESSING - UPPER BODY: T-shirt/pullover shirt (four steps) ARTICLES SCORE Total number of steps: 4 DRESSING - UPPER BODY - STEP 1: Does the patient require help from a person or device, or need extra time when dressing above the meek st? Yes. DRESSING - UPPER BODY - STEP 2: Does the patient require the assistance of a helper? Yes. DRESSING - UPPER BODY - STEP 3: Does the helper touch the patient while dressing? Yes. DRESSING - UPPER BODY - STEP 4: How many of the total steps does the patient complete on his/her own? 3 DRESSING - UPPER BODY - SCORE: 4-MIN DRESSING - LOWER BODY: Elastic waist pants (three steps) Sock - Left foot (one step) Sock - Right foot (one step) Tied or buckled shoe - Left foot (two steps) Tied or buckled shoe - Right foot (two steps) Underwear (three steps) ARTICLES SCORE Total number of steps: 12 DRESSING - LOWER BODY - STEP 1: Does the patient require help from a person or device, or need extra time when dressing below the meek st? Yes. DRESSING - LOWER BODY - STEP 2: Does the patient require the assistance of a helper? Yes. DRESSING - LOWER BODY - STEP 3: Does the helper touch the patient while dressing? Yes. DRESSING - LOWER BODY - STEP 4: How many of the total steps does the patient complete on his/her own? 3 DRESSING - LOWER BODY - STEP 5: Does patient require total assistance for dressing below the waist such as the helper holding clothin g and performing basically all the activities? No. DRESSING - LOWER BODY - SCORE: 2-MAX TOILETING: Activity did not occur on this shift TOILETING - SCORE: 0-UNK BLADDER MANAGEMENT: Activity did not occur on this shift BLADDER MANAGEMENT - SCORE: 7-IND BOWEL MANAGEMENT: Activity did not occur on this shift BOWEL MANAGEMENT - SCORE: 7-IND TRANSFERS: BED, CHAIR, WHEELCHAIR: Activity did not occur on this shift TRANSFERS: BED, CHAIR, WHEELCHAIR - SCORE: 0-UNK TRANSFERS: TOILET: Activity did not occur on this shift TRANSFERS: TOILET - SCORE: 0-UNK TRANSFERS: SHOWER: TRANSFERS: SHOWER - STEP 1: Does the patient require the assistance of a person or device, or need extra time with shower transfe rs? Yes. TRANSFERS: SHOWER - STEP 2: Does the patient require the assistance of a helper? Yes. TRANSFERS: SHOWER - STEP 3: How much assistance does the patient require from the helper? More than incidental help TRANSFERS: SHOWER - STEP 4: How much more help does the patient require from the helper? Lifting the patient up AND down from the wheelchair onto the shower chair TRANSFERS: SHOWER - SCORE: 2-MAX TRANSFERS: TUB: Activity did not occur on this shift TRANSFERS: TUB - SCORE: 0-UNK LOCOMOTION: WALK: Activity did not occur on this shift LOCOMOTION: WALK - SCORE: 0-UNK LOCOMOTION: WHEELCHAIR: Activity did not occur on this shift LOCOMOTION: WHEELCHAIR - SCORE: 0-UNK LOCOMOTION: STAIRS: Activity did not occur on this shift LOCOMOTION: STAIRS - SCORE: 0-UNK COMPREHENSION: COMPREHENSION - SCORE: 0-UNK EXPRESSION EXPRESSION - SCORE: 0-UNK SOCIAL INTERACTION: SOCIAL INTERACTION - SCORE: 0-UNK PROBLEM SOLVING: PROBLEM SOLVING - SCORE: 0-UNK MEMORY: MEMORY - SCORE: 0-UNK SIGNATURE PANEL: The following modified sections: Eating - Score, Grooming - Score, Bathing - Score, Dressing - Upper Body - Score, Dressing - Lower Body - Score, Toileting - Score, Transfers: Bed, Chair, Wheelchair - S core, Transfers: Toilet - Score, Transfers: Shower - Score, Transfers: Tub - Score, Comprehension - S core, Expression - Score, Social Interaction - Score, Problem Solving - Score, Memory - Score were [e lectronically] signed by VALE Reyes on MonSep 14 2018 12:29:56 T-0600 ([place] Time)
--- NOTE | 2018-09-14 14:43 | FAST ---
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 Daniel Mane M.D. ADMISSION DIAGNOSIS: - Orthopaedic Disorders 08 - Unilateral Hip Fracture (08.11) RIGHT FEMORAL NECK FRACTURE. EATING: Activity did not occur on this shift EATING - SCORE: 0-UNK GROOMING: Activity did not occur on this shift GROOMING - SCORE: 0-UNK BATHING: Activity did not occur on this shift BATHING - SCORE: 0-UNK DRESSING - UPPER BODY: Activity did not occur on this shift Patient is not dressing in public clothing ARTICLES SCORE Total number of steps: 0 DRESSING - UPPER BODY - SCORE: 0-UNK DRESSING - LOWER BODY: Activity did not occur on this shift Patient is not dressing in public clothing ARTICLES SCORE Total number of steps: 0 DRESSING - LOWER BODY - SCORE: 0-UNK TOILETING: Activity did not occur on this shift TOILETING - SCORE: 0-UNK BLADDER MANAGEMENT: Activity did not occur on this shift BLADDER MANAGEMENT - SCORE: 7-IND BOWEL MANAGEMENT: Activity did not occur on this shift BOWEL MANAGEMENT - SCORE: 7-IND TRANSFERS: BED, CHAIR, WHEELCHAIR: Activity did not occur on this shift TRANSFERS: BED, CHAIR, WHEELCHAIR - SCORE: 0-UNK TRANSFERS: TOILET: Activity did not occur on this shift TRANSFERS: TOILET - SCORE: 0-UNK TRANSFERS: SHOWER: Activity did not occur on this shift TRANSFERS: SHOWER - SCORE: 0-UNK TRANSFERS: TUB: Activity did not occur on this shift TRANSFERS: TUB - SCORE: 0-UNK LOCOMOTION: WALK: Activity did not occur on this shift LOCOMOTION: WALK - SCORE: 0-UNK LOCOMOTION: WHEELCHAIR: LOCOMOTION: WHEELCHAIR - STEP 1: Does the patient need help to go 150 feet in a wheelchair? Yes. LOCOMOTION: WHEELCHAIR - STEP 2: How much assistance does the patient need from the helper? Only supervision, cuing, or coaxing LOCOMOTION: WHEELCHAIR - SCORE: 5-SUP LOCOMOTION: STAIRS: Activity did not occur on this shift LOCOMOTION: STAIRS - SCORE: 0-UNK COMPREHENSION: COMPREHENSION - SCORE: 0-UNK EXPRESSION EXPRESSION - SCORE: 0-UNK SOCIAL INTERACTION: SOCIAL INTERACTION - SCORE: 0-UNK PROBLEM SOLVING: PROBLEM SOLVING - SCORE: 0-UNK MEMORY: MEMORY - SCORE: 0-UNK SIGNATURE PANEL: The following modified sections: Transfers: Bed, Chair, Wheelchair - Score, Transfers: Toilet - Score , Locomotion: Walk - Score, Locomotion: Wheelchair - Score, Locomotion: Stairs - Score were [electron ically] signed by Rashi Griffith PTA on MonSep 14 2018 14:42:26 GMT-0600 (Central Standard Time)
[2018-09-14] MEDS: DOCUSATE NA/SENNA CONC 1 TAB PO SCH (20:21)
--- NOTE | 2018-09-14 23:04 | PN ---
Date of Progress Note: 09/14/2018 Subjective: Patient was seen this morning for followup. No new complaints or problems reported by afia mcghee. He was sitting in the wheelchair. Had a bowel movement. Denied any specific complaints. Objective: Vital Signs: Reviewed. HEENT Examination: Unremarkable. Lungs: Clear to auscultation. Heart: Sounds normal. Abdomen: Soft, bowel sounds normal. No guarding, rigidity, tenderness, or distention. Extremities: No leg edema. Impression: 1.Pneumonia. 2.Hypertension. 3.Stroke with right-sided hemiparesis. 4.Hip fracture. 5.Anemia due to acute blood loss. Plan: We will go ahead and continue current medications. Constipation problem is under good control , had a large bowel movement yesterday as he reported. We will continue current stool softener/laxat desiree. Continue current DVT prophylaxis and continue current antibiotics for pneumonia. I will see madai crane tomorrow for followup. DAWNA/SEBASTIAN Voice ID: [id number] Report ID: [id number]
[2018-09-15] MEDS: PIPER/TAZO/NS 3.375gm 3.375 GM/100 ML BAG IVPB SCH ×3 (00:22→16:01)
--- NOTE | 2018-09-15 02:08 | FAST ---
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 Daniel Mane M.D. ADMISSION DIAGNOSIS: - Orthopaedic Disorders 08 - Unilateral Hip Fracture (08.11) RIGHT FEMORAL NECK FRACTURE. EATING: Activity did not occur on this shift EATING - SCORE: 0-UNK GROOMING: Activity did not occur on this shift GROOMING - SCORE: 0-UNK BATHING: Activity did not occur on this shift BATHING - SCORE: 0-UNK DRESSING - UPPER BODY: Patient is not dressing in public clothing ARTICLES SCORE Total number of steps: 0 DRESSING - UPPER BODY - SCORE: 0-UNK DRESSING - LOWER BODY: Patient is not dressing in public clothing ARTICLES SCORE Total number of steps: 0 DRESSING - LOWER BODY - SCORE: 0-UNK TOILETING: Activity did not occur on this shift TOILETING - SCORE: 0-UNK BLADDER MANAGEMENT: [place] removes incontinent device (Depends, pull ups, etc.); cleans the patient after accident / inco ntinent episode; and, applies new incontinent device. BLADDER MANAGEMENT - SCORE: 1-DEP BLADDER MANAGEMENT - FREQUENCY OF ACCIDENTS: BLADDER MANAGEMENT(FA) - STEP 1: How many accidents has the patient had during the current shift? 1 BOWEL MANAGEMENT: Activity did not occur on this shift BOWEL MANAGEMENT - SCORE: 7-IND TRANSFERS: BED, CHAIR, WHEELCHAIR: Activity did not occur on this shift TRANSFERS: BED, CHAIR, WHEELCHAIR - SCORE: 0-UNK TRANSFERS: TOILET: Activity did not occur on this shift TRANSFERS: TOILET - SCORE: 0-UNK TRANSFERS: SHOWER: Activity did not occur on this shift TRANSFERS: SHOWER - SCORE: 0-UNK TRANSFERS: TUB: Activity did not occur on this shift TRANSFERS: TUB - SCORE: 0-UNK LOCOMOTION: WALK: Activity did not occur on this shift LOCOMOTION: WALK - SCORE: 0-UNK LOCOMOTION: WHEELCHAIR: Activity did not occur on this shift LOCOMOTION: WHEELCHAIR - SCORE: 0-UNK COMPREHENSION: COMPREHENSION: TYPE: Both COMPREHENSION - STEP 1: Does the patient require help from a person or device, or need extra time to understand complex and a bstract ideas (such as current events, finances, discharge planning, medical issues, relationships, e tc)? Yes. COMPREHENSION - STEP 2: Does the patient require help to understand questions or statements about basic needs or ideas (such as hunger, thirst, sleep, safety, daily schedule, room location, or discomfort) half or more of the t madeleine? No. COMPREHENSION - STEP 3: How often does the patient need help to understand directions and conversation about basic needs? 10% - 24% of the time COMPREHENSION - SCORE: 4-MIN EXPRESSION EXPRESSION: TYPE: Both EXPRESSION - STEP 1: Does the patient require help from a person or device, or need extra time expressing complex and abst ract ideas (such as current events, finances, discharge planning, medical issues, relationships, etc) ? Yes. EXPRESSION - STEP 2: Does the patient require help to express basic necessities or ideas (such as hunger, thirst, sleep, s afety, daily schedule, room location, or discomfort) half or more of the time? No. EXPRESSION - STEP 3: How often does the patient need help to express directions and conversation about basic needs? 10-24% of the time EXPRESSION - SCORE: 4-MIN SOCIAL INTERACTION: SOCIAL INTERACTION - STEP 1: Does the patient require a helper to interact with others in social and therapeutic situations? No. SOCIAL INTERACTION - STEP 2: Does the patient need extra time in social situations, OR does s/he interact with staff, other patien ts, and family members ONLY in structured environments, OR does s/he require medication for social in teraction? Yes, patient needs extra time SOCIAL INTERACTION - SCORE: 6-ROBBY PROBLEM SOLVING: PROBLEM SOLVING - STEP 1: Does the patient need help from a person or device, or need extra time to solve complex problems such as managing a checking account or confronting interpersonal problems? Yes. PROBLEM SOLVING - STEP 2: Does the patient solve basic routine problems half or more of the time? Yes. PROBLEM SOLVING - STEP 3: How often does the patient need help to solve basic routine problems? Less than 10% of the time PROBLEM SOLVING - SCORE: 5-SUP MEMORY: MEMORY - STEP 1: Does the patient need help from a person or device, or need extra time to remember frequently encount ered people, daily routines, and executing requests? No. MEMORY - STEP 2: Does the patient have slight difficulty recognizing frequently encountered people, daily routines, or executing requests without the need for repetition or using self-initiated or environmental cues to remember? Yes. MEMORY - SCORE: 6-ROBBY
[2018-09-15] MEDS: HYDROCODONE/APAP 5/325 MG TAB PO PRN ×4 (03:28→16:01)
[2018-09-15] MEDS: ALBUTEROL 2.5 MG/3 ML NEB SOL NEB SCH ×4 (03:32→20:27)
[2018-09-15] MEDS: ENOXAPARIN 40 MG/0.4 ML SQ SCH (07:27)
[2018-09-15] MEDS: LIDOCAINE 5% PATCH TOP SCH (07:27)
[2018-09-15] MEDS: RAMIPRIL 5 MG CAP PO SCH ×2 (08:15→20:02)
[2018-09-15] MEDS: BACLOFEN 10 MG TAB PO SCH ×3 (08:15→20:02)
[2018-09-15] MEDS: MAGNESIUM OXIDE 400 MG TAB PO SCH ×2 (08:16→20:02)
[2018-09-15] MEDS: PROMOD 30 ML DOSE PO SCH ×2 (08:16→20:02)
[2018-09-15] MEDS: ESCITALOPRAM 20 MG TAB PO SCH (08:16)
[2018-09-15] MEDS: AMLODIPINE 5 MG TAB PO SCH (08:16)
[2018-09-15] MEDS: TRAMADOL HCL 50 MG TAB PO PRN ×3 (09:32→17:09)
--- NOTE | 2018-09-15 13:58 | FAST ---
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 Daniel Mane M.D. ADMISSION DIAGNOSIS: - Orthopaedic Disorders 08 - Unilateral Hip Fracture (08.11) RIGHT FEMORAL NECK FRACTURE. EATING: EATING - STEP 1: Does the patient require the assistance of a person or device, or need extra time when eating? Yes. EATING - STEP 2: Does the patient require the assistance of a helper? Yes. EATING - STEP 3: Does the patient perform half or more of the eating tasks? Yes. EATING - STEP 4: Does the patient need only supervision, cuing, coaxing OR help to apply an orthosis OR help to cut fo od, open containers, pour liquids, or butter bread? Yes. EATING - SCORE: 5-SUP GROOMING: Comb/brush hair Oral care Wash, rinse, and dry face Wash, rinse, and dry hands GROOMING - STEP 1: Does the patient require the assistance of a person or device, or need extra time when grooming? Yes. GROOMING - STEP 2: Does the patient require the assistance of a helper? Yes. GROOMING - STEP 3: How much assistance does the patient require from the helper? Only prior equipment preparation/set up from the helper GROOMING - SCORE: 5-SUP BATHING: Activity did not occur on this shift BATHING - SCORE: 0-UNK DRESSING - UPPER BODY: T-shirt/pullover shirt (four steps) ARTICLES SCORE Total number of steps: 4 DRESSING - UPPER BODY - STEP 1: Does the patient require help from a person or device, or need extra time when dressing above the meek st? Yes. DRESSING - UPPER BODY - STEP 2: Does the patient require the assistance of a helper? Yes. DRESSING - UPPER BODY - STEP 3: Does the helper touch the patient while dressing? Yes. DRESSING - UPPER BODY - STEP 4: How many of the total steps does the patient complete on his/her own? 3 DRESSING - UPPER BODY - SCORE: 4-MIN DRESSING - LOWER BODY: ARTICLES SCORE Total number of steps: 12 DRESSING - LOWER BODY - STEP 1: Does the patient require help from a person or device, or need extra time when dressing below the meek st? Yes. DRESSING - LOWER BODY - STEP 2: Does the patient require the assistance of a helper? Yes. DRESSING - LOWER BODY - STEP 3: Does the helper touch the patient while dressing? Yes. DRESSING - LOWER BODY - STEP 4: How many of the total steps does the patient complete on his/her own? 0 DRESSING - LOWER BODY - STEP 5: Does patient require total assistance for dressing below the waist such as the helper holding clothin g and performing basically all the activities? No. DRESSING - LOWER BODY - SCORE: 2-MAX TOILETING: TOILETING - STEP 1: Does the patient require the assistance of a person or device, or need extra time with toileting? Yes . TOILETING - STEP 2: Does the patient require the assistance of a helper? Yes. TOILETING - STEP 3: How much assistance does the patient require from the helper? Hands-on assistance from the helper TOILETING - STEP 4: Of the 3 tasks: 1) Adjusting clothing prior to use, 2) Cleansing of perineal area, 3) Adjusting clot stephenie after use; How many tasks does the patient perform WITHOUT assistance of the helper? Three tasks with steadying assistance from the helper TOILETING - SCORE: 4-MIN BLADDER MANAGEMENT: [place] removes incontinent device (Depends, pull ups, etc.); cleans the patient after accident / inco ntinent episode; and, applies new incontinent device. BLADDER MANAGEMENT - SCORE: 1-DEP BLADDER MANAGEMENT - FREQUENCY OF ACCIDENTS: BLADDER MANAGEMENT(FA) - STEP 1: How many accidents has the patient had during the current shift? 3 BOWEL MANAGEMENT: BOWEL MANAGEMENT - STEP 1: Does the patient control bowels completely and intentionally without equipment devices or medications AND is always continent? No. BOWEL MANAGEMENT - STEP 2: Does the patient require the assistance of a helper? No, patient requires and manages independently a n assistive device such as a bedpan, bedside commode, absorbent pad, incontinent device, or collectin g device BOWEL MANAGEMENT - SCORE: 6-ROBBY TRANSFERS: BED, CHAIR, WHEELCHAIR: TRANSFERS: BED, CHAIR, WHEELCHAIR - STEP 1: Does the patient require assistance of a person or device, or need extra time with bed, chair, or whe elchair transfers? Yes. TRANSFERS: BED, CHAIR, WHEELCHAIR - STEP 2: Does the patient require the assistance of a helper? Yes. TRANSFERS: BED, CHAIR, WHEELCHAIR - STEP 3: How much assistance does the patient require from the helper? Lifting of the patient TRANSFERS: BED, CHAIR, WHEELCHAIR - STEP 4: Does the helper lift the patient ONLY up? ONLY down? Up AND Down? ONLY up. TRANSFERS: BED, CHAIR, WHEELCHAIR - SCORE: 3-MOD TRANSFERS: TOILET: TRANSFERS: TOILET - STEP 1: Does the patient require the assistance of a person or device, or need extra time with toilet transfe rs? Yes. TRANSFERS: TOILET - STEP 2: Does the patient require the assistance of a helper? Yes. TRANSFERS: TOILET - STEP 3: How much assistance does the patient require from the helper? Patient performs half or more of the tr ansferring tasks TRANSFERS: TOILET - STEP 4: Does the patient need only incidental help such as contact guard or steadying during toilet transfer? Yes. TRANSFERS: TOILET - SCORE: 4-MIN TRANSFERS: SHOWER: TRANSFERS: SHOWER - STEP 1: Does the patient require the assistance of a person or device, or need extra time with shower transfe rs? Yes. TRANSFERS: SHOWER - STEP 2: Does the patient require the assistance of a helper? Yes. TRANSFERS: SHOWER - STEP 3: How much assistance does the patient require from the helper? Only incidental help such as contact gu arding or steadying during shower transfers, or help to lift one leg into the shower TRANSFERS: SHOWER - SCORE: 4-MIN TRANSFERS: TUB: Activity did not occur on this shift TRANSFERS: TUB - SCORE: 0-UNK LOCOMOTION: WALK: Activity did not occur on this shift LOCOMOTION: WALK - SCORE: 0-UNK LOCOMOTION: WHEELCHAIR: Activity did not occur on this shift LOCOMOTION: WHEELCHAIR - SCORE: 0-UNK COMPREHENSION: COMPREHENSION: TYPE: Both COMPREHENSION - STEP 1: Does the patient require help from a person or device, or need extra time to understand complex and a bstract ideas (such as current events, finances, discharge planning, medical issues, relationships, e tc)? No. COMPREHENSION - STEP 2: Does the patient need extra time, require an assistive device (such as glasses for visual comprehensi on or a hearing aid for auditory comprehension) or does s/he have mild difficulty understanding compl ex and abstract information? Yes. COMPREHENSION - SCORE: 6-ROBBY EXPRESSION EXPRESSION: TYPE: Both EXPRESSION - STEP 1: Does the patient require help from a person or device, or need extra time expressing complex and abst ract ideas (such as current events, finances, discharge planning, medical issues, relationships, etc) ? No. EXPRESSION - STEP 2: Does the patient need extra time, require an assistive device (such as augmentive communication syste m or a communication board), OR does s/he have mild difficulty expressing complex and abstract ideas (including mild dysarthria or mild word-find problems)? Yes. EXPRESSION - SCORE: 6-ROBBY SOCIAL INTERACTION: SOCIAL INTERACTION - STEP 1: Does the patient require a helper to interact with others in social and therapeutic situations? No. SOCIAL INTERACTION - STEP 2: Does the patient need extra time in social situations, OR does s/he interact with staff, other patien ts, and family members ONLY in structured environments, OR does s/he require medication for social in teraction? Yes, patient needs extra time SOCIAL INTERACTION - SCORE: 6-ROBBY PROBLEM SOLVING: PROBLEM SOLVING - STEP 1: Does the patient need help from a person or device, or need extra time to solve complex problems such as managing a checking account or confronting interpersonal problems? No. PROBLEM SOLVING - STEP 2: Does the patient require extra time to make decisions or solve problems, OR does s/he have slight dif ficulty reading, initiating, or self-correcting in unfamiliar situations? Yes, patient needs extra ti me. PROBLEM SOLVING - SCORE: 6-ROBBY MEMORY: MEMORY - STEP 1: Does the patient need help from a person or device, or need extra time to remember frequently encount ered people, daily routines, and executing requests? No. MEMORY - STEP 2: Does the patient have slight difficulty recognizing frequently encountered people, daily routines, or executing requests without the need for repetition or using self-initiated or environmental cues to remember? Yes. MEMORY - SCORE: 6-ROBBY SIGNATURE PANEL: The following modified sections: Eating - Score, Grooming - Score, Bathing - Score, Dressing - Upper Body - Score, Dressing - Lower Body - Score, Toileting - Score, Bladder Management - Score, Bowel Man agement - Score, Transfers: Bed, Chair, Wheelchair - Score, Transfers: Toilet - Score, Transfers: Kayla wer - Score, Transfers: Tub - Score, Locomotion: Walk - Score, Locomotion: Wheelchair - Score, Compre hension - Score, Expression - Score, Social Interaction - Score, Problem Solving - Score, Memory - Sc ore were [electronically] signed by Cali Barron on Sat Sep 15 2018 13:56:51 GMT-0600 (Central Standard Time)
--- NOTE | 2018-09-15 15:12 | PN ---
Date of Progress Note: 09/15/2018 Subjective: The patient was seen this morning for followup. No new complaints or problems reported by the patient. Objective: General: Lying in bed, not in distress. Vital Signs: Reviewed. HEENT: Unremarkable. Lungs: Clear to auscultation. Heart: Sounds normal. Abdomen: Soft bowel sounds normal. No guarding, rigidity, tenderness, distention. Extremities: No leg edema. Impression: 1.Right hip fracture. 2.Stroke with right-sided hemiparesis. 3.Hypertension. 4.Acute blood loss anemia. 5.Pneumonia. Plan: We will continue current medication, antibiotic. Continue current antihypertensive medication and physical therapy per Dr. Mane. I will see him tomorrow for followup. DAWNA/MODL Voice ID: [id number] Report ID: [id number]
[2018-09-15] MEDS: DOCUSATE NA/SENNA CONC 1 TAB PO SCH (20:02)
[2018-09-15] MEDS: ARIPiprazole 5 MG TAB PO SCH (20:02)
[2018-09-16] MEDS: PIPER/TAZO/NS 3.375gm 3.375 GM/100 ML BAG IVPB SCH ×2 (01:04→07:16)
[2018-09-16] MEDS: ALBUTEROL 2.5 MG/3 ML NEB SOL NEB SCH ×4 (01:30→20:00)
--- NOTE | 2018-09-16 01:37 | FAST ---
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 Daniel Mane M.D. ADMISSION DIAGNOSIS: - Orthopaedic Disorders 08 - Unilateral Hip Fracture (08.11) RIGHT FEMORAL NECK FRACTURE. EATING: Activity did not occur on this shift EATING - SCORE: 0-UNK GROOMING: Activity did not occur on this shift GROOMING - SCORE: 0-UNK BATHING: Activity did not occur on this shift BATHING - SCORE: 0-UNK DRESSING - UPPER BODY: Patient is not dressing in public clothing ARTICLES SCORE Total number of steps: 0 DRESSING - UPPER BODY - SCORE: 0-UNK DRESSING - LOWER BODY: Patient is not dressing in public clothing ARTICLES SCORE Total number of steps: 0 DRESSING - LOWER BODY - SCORE: 0-UNK TOILETING: Activity did not occur on this shift TOILETING - SCORE: 0-UNK BLADDER MANAGEMENT: [place] removes incontinent device (Depends, pull ups, etc.); cleans the patient after accident / inco ntinent episode; and, applies new incontinent device. BLADDER MANAGEMENT - SCORE: 1-DEP BOWEL MANAGEMENT: Activity did not occur on this shift BOWEL MANAGEMENT - SCORE: 7-IND TRANSFERS: BED, CHAIR, WHEELCHAIR: Activity did not occur on this shift TRANSFERS: BED, CHAIR, WHEELCHAIR - SCORE: 0-UNK TRANSFERS: TOILET: Activity did not occur on this shift TRANSFERS: TOILET - SCORE: 0-UNK TRANSFERS: SHOWER: Activity did not occur on this shift TRANSFERS: SHOWER - SCORE: 0-UNK TRANSFERS: TUB: Activity did not occur on this shift TRANSFERS: TUB - SCORE: 0-UNK LOCOMOTION: WALK: Activity did not occur on this shift LOCOMOTION: WALK - SCORE: 0-UNK LOCOMOTION: WHEELCHAIR: Activity did not occur on this shift LOCOMOTION: WHEELCHAIR - SCORE: 0-UNK COMPREHENSION: COMPREHENSION: TYPE: Both COMPREHENSION - STEP 1: Does the patient require help from a person or device, or need extra time to understand complex and a bstract ideas (such as current events, finances, discharge planning, medical issues, relationships, e tc)? No. COMPREHENSION - STEP 2: Does the patient need extra time, require an assistive device (such as glasses for visual comprehensi on or a hearing aid for auditory comprehension) or does s/he have mild difficulty understanding compl ex and abstract information? Yes. COMPREHENSION - SCORE: 6-ROBBY EXPRESSION EXPRESSION: TYPE: Both EXPRESSION - STEP 1: Does the patient require help from a person or device, or need extra time expressing complex and abst ract ideas (such as current events, finances, discharge planning, medical issues, relationships, etc) ? No. EXPRESSION - STEP 2: Does the patient need extra time, require an assistive device (such as augmentive communication syste m or a communication board), OR does s/he have mild difficulty expressing complex and abstract ideas (including mild dysarthria or mild word-find problems)? No. EXPRESSION - SCORE: 7-IND SOCIAL INTERACTION: SOCIAL INTERACTION - STEP 1: Does the patient require a helper to interact with others in social and therapeutic situations? No. SOCIAL INTERACTION - STEP 2: Does the patient need extra time in social situations, OR does s/he interact with staff, other patien ts, and family members ONLY in structured environments, OR does s/he require medication for social in teraction? Yes, patient requires medication for social interaction SOCIAL INTERACTION - SCORE: 6-ROBBY PROBLEM SOLVING: PROBLEM SOLVING - STEP 1: Does the patient need help from a person or device, or need extra time to solve complex problems such as managing a checking account or confronting interpersonal problems? No. PROBLEM SOLVING - STEP 2: Does the patient require extra time to make decisions or solve problems, OR does s/he have slight dif ficulty reading, initiating, or self-correcting in unfamiliar situations? Yes, patient needs extra ti me. PROBLEM SOLVING - SCORE: 6-ROBBY MEMORY: MEMORY - STEP 1: Does the patient need help from a person or device, or need extra time to remember frequently encount ered people, daily routines, and executing requests? No. MEMORY - STEP 2: Does the patient have slight difficulty recognizing frequently encountered people, daily routines, or executing requests without the need for repetition or using self-initiated or environmental cues to remember? No. MEMORY - SCORE: 7-IND SIGNATURE PANEL: The following modified sections: Eating - Score, Grooming - Score, Bathing - Score, Dressing - Upper Body - Score, Dressing - Lower Body - Score, Toileting - Score, Bladder Management - Score, Bowel Man agement - Score, Transfers: Bed, Chair, Wheelchair - Score, Transfers: Toilet - Score, Transfers: Kayla wer - Score, Transfers: Tub - Score, Locomotion: Walk - Score, Locomotion: Wheelchair - Score, Compre hension - Score, Expression - Score, Social Interaction - Score, Problem Solving - Score, Memory - Sc ore were [electronically] signed by Milly Arteaga CNA on MonSep 16 2018 01:29:59 T-0600 ([facility])
[2018-09-16] MEDS: HYDROCODONE/APAP 5/325 MG TAB PO PRN ×2 (07:15→16:01)
[2018-09-16] MEDS: ENOXAPARIN 40 MG/0.4 ML SQ SCH (07:15)
[2018-09-16] MEDS: LIDOCAINE 5% PATCH TOP SCH (07:16)
[2018-09-16] MEDS: RAMIPRIL 5 MG CAP PO SCH ×2 (08:23→19:20)
[2018-09-16] MEDS: MAGNESIUM OXIDE 400 MG TAB PO SCH ×2 (08:24→19:20)
[2018-09-16] MEDS: BACLOFEN 10 MG TAB PO SCH ×3 (08:25→20:10)
[2018-09-16] MEDS: AMLODIPINE 5 MG TAB PO SCH (08:25)
[2018-09-16] MEDS: ESCITALOPRAM 20 MG TAB PO SCH (08:25)
[2018-09-16] MEDS: PROMOD 30 ML DOSE PO SCH ×2 (08:25→19:21)
--- NOTE | 2018-09-16 13:10 | FAST ---
SHIFT START DATE/TIME: 09/16/2018 07:00 ([facility]) SHIFT END DATE/TIME: 09/16/2018 19:00 ([facility]) NAME ELSIE MENDOZA DATE OF : 1950 DATE OF ADMISSION: 09/10/2018 19:12 ([facility]) PHONE: AGE: 68 N# [id number] GENDER: Male ENCOUNTER PHYSICIAN: Dr. Daniel Mane M.D. ADMISSION DIAGNOSIS: - Orthopaedic Disorders 08 - Unilateral Hip Fracture (08.11) RIGHT FEMORAL NECK FRACTURE. EATING: EATING - STEP 1: Does the patient require the assistance of a person or device, or need extra time when eating? Yes. EATING - STEP 2: Does the patient require the assistance of a helper? Yes. EATING - STEP 3: Does the patient perform half or more of the eating tasks? Yes. EATING - STEP 4: Does the patient need only supervision, cuing, coaxing OR help to apply an orthosis OR help to cut fo od, open containers, pour liquids, or butter bread? Yes. EATING - SCORE: 5-SUP GROOMING: Comb/brush hair Oral care GROOMING - STEP 1: Does the patient require the assistance of a person or device, or need extra time when grooming? Yes. GROOMING - STEP 2: Does the patient require the assistance of a helper? Yes. GROOMING - STEP 3: How much assistance does the patient require from the helper? Cuing, coaxing, instructions, or encour agement for completion of grooming GROOMING - SCORE: 5-SUP BATHING: Activity did not occur on this shift BATHING - SCORE: 0-UNK DRESSING - UPPER BODY: T-shirt/pullover shirt (four steps) ARTICLES SCORE Total number of steps: 4 DRESSING - UPPER BODY - STEP 1: Does the patient require help from a person or device, or need extra time when dressing above the meek st? Yes. DRESSING - UPPER BODY - STEP 2: Does the patient require the assistance of a helper? Yes. DRESSING - UPPER BODY - STEP 3: Does the helper touch the patient while dressing? Yes. DRESSING - UPPER BODY - STEP 4: How many of the total steps does the patient complete on his/her own? 3 DRESSING - UPPER BODY - SCORE: 4-MIN DRESSING - LOWER BODY: ARTICLES SCORE Total number of steps: 9 DRESSING - LOWER BODY - STEP 1: Does the patient require help from a person or device, or need extra time when dressing below the meek st? Yes. DRESSING - LOWER BODY - STEP 2: Does the patient require the assistance of a helper? Yes. DRESSING - LOWER BODY - STEP 3: Does the helper touch the patient while dressing? Yes. DRESSING - LOWER BODY - STEP 4: How many of the total steps does the patient complete on his/her own? 3 DRESSING - LOWER BODY - STEP 5: Does patient require total assistance for dressing below the waist such as the helper holding clothin g and performing basically all the activities? No. DRESSING - LOWER BODY - SCORE: 2-MAX TOILETING: TOILETING - STEP 1: Does the patient require the assistance of a person or device, or need extra time with toileting? Yes . TOILETING - STEP 2: Does the patient require the assistance of a helper? Yes. TOILETING - STEP 3: How much assistance does the patient require from the helper? Hands-on assistance from the helper TOILETING - STEP 4: Of the 3 tasks: 1) Adjusting clothing prior to use, 2) Cleansing of perineal area, 3) Adjusting clot stephenie after use; How many tasks does the patient perform WITHOUT assistance of the helper? Two tasks TOILETING - SCORE: 3-MOD BLADDER MANAGEMENT: [place] removes incontinent device (Depends, pull ups, etc.); cleans the patient after accident / inco ntinent episode; and, applies new incontinent device. BLADDER MANAGEMENT - SCORE: 1-DEP BLADDER MANAGEMENT - FREQUENCY OF ACCIDENTS: BLADDER MANAGEMENT(FA) - STEP 1: How many accidents has the patient had during the current shift? 3 BOWEL MANAGEMENT: Activity did not occur on this shift BOWEL MANAGEMENT - SCORE: 7-IND TRANSFERS: BED, CHAIR, WHEELCHAIR: TRANSFERS: BED, CHAIR, WHEELCHAIR - STEP 1: Does the patient require assistance of a person or device, or need extra time with bed, chair, or whe elchair transfers? Yes. TRANSFERS: BED, CHAIR, WHEELCHAIR - STEP 2: Does the patient require the assistance of a helper? Yes. TRANSFERS: BED, CHAIR, WHEELCHAIR - STEP 3: How much assistance does the patient require from the helper? Lifting of the patient TRANSFERS: BED, CHAIR, WHEELCHAIR - STEP 4: Does the helper lift the patient ONLY up? ONLY down? Up AND Down? Up AND Down. TRANSFERS: BED, CHAIR, WHEELCHAIR - SCORE: 2-MAX TRANSFERS: TOILET: TRANSFERS: TOILET - STEP 1: Does the patient require the assistance of a person or device, or need extra time with toilet transfe rs? Yes. TRANSFERS: TOILET - STEP 2: Does the patient require the assistance of a helper? Yes. TRANSFERS: TOILET - STEP 3: How much assistance does the patient require from the helper? Patient performs less than half of the transferring tasks TRANSFERS: TOILET - STEP 4: Does the patient require total assistance for the toilet transfer such as the helper doing basically all the lifting? No. TRANSFERS: TOILET - SCORE: 2-MAX TRANSFERS: SHOWER: Activity did not occur on this shift TRANSFERS: SHOWER - SCORE: 0-UNK TRANSFERS: TUB: Activity did not occur on this shift TRANSFERS: TUB - SCORE: 0-UNK LOCOMOTION: WALK: Activity did not occur on this shift LOCOMOTION: WALK - SCORE: 0-UNK LOCOMOTION: WHEELCHAIR: Activity did not occur on this shift LOCOMOTION: WHEELCHAIR - SCORE: 0-UNK COMPREHENSION: COMPREHENSION: TYPE: Both COMPREHENSION - STEP 1: Does the patient require help from a person or device, or need extra time to understand complex and a bstract ideas (such as current events, finances, discharge planning, medical issues, relationships, e tc)? Yes. COMPREHENSION - STEP 2: Does the patient require help to understand questions or statements about basic needs or ideas (such as hunger, thirst, sleep, safety, daily schedule, room location, or discomfort) half or more of the t madeleine? No. COMPREHENSION - STEP 3: How often does the patient need help to understand directions and conversation about basic needs? Les s than 10% of the time COMPREHENSION - SCORE: 5-SUP EXPRESSION EXPRESSION: TYPE: Both EXPRESSION - STEP 1: Does the patient require help from a person or device, or need extra time expressing complex and abst ract ideas (such as current events, finances, discharge planning, medical issues, relationships, etc) ? Yes. EXPRESSION - STEP 2: Does the patient require help to express basic necessities or ideas (such as hunger, thirst, sleep, s afety, daily schedule, room location, or discomfort) half or more of the time? No. EXPRESSION - STEP 3: How often does the patient need help to express directions and conversation about basic needs? Less t watt 10% of the time EXPRESSION - SCORE: 5-SUP SOCIAL INTERACTION: SOCIAL INTERACTION - STEP 1: Does the patient require a helper to interact with others in social and therapeutic situations? Yes. SOCIAL INTERACTION - STEP 2: Does the patient interact appropriately half or more of the time? Yes. SOCIAL INTERACTION - STEP 3: How often does the patient need help to interact appropriately? Less than 10% of the time SOCIAL INTERACTION - SCORE: 5-SUP PROBLEM SOLVING: PROBLEM SOLVING - STEP 1: Does the patient need help from a person or device, or need extra time to solve complex problems such as managing a checking account or confronting interpersonal problems? Yes. PROBLEM SOLVING - STEP 2: Does the patient solve basic routine problems half or more of the time? Yes. PROBLEM SOLVING - STEP 3: How often does the patient need help to solve basic routine problems? Less than 10% of the time PROBLEM SOLVING - SCORE: 5-SUP MEMORY: MEMORY - STEP 1: Does the patient need help from a person or device, or need extra time to remember frequently encount ered people, daily routines, and executing requests? Yes. MEMORY - STEP 2: How often does the patient need help to remember frequently encountered people, daily routines, and e xecuting requests? Less than 10% of the time MEMORY - SCORE: 5-SUP SIGNATURE PANEL: The following modified sections: Eating - Score, Grooming - Score, Bathing - Score, Dressing - Upper Body - Score, Dressing - Lower Body - Score, Toileting - Score, Bladder Management - Score, Bowel Man agement - Score, Transfers: Bed, Chair, Wheelchair - Score, Transfers: Toilet - Score, Transfers: Kayla wer - Score, Transfers: Tub - Score, Locomotion: Walk - Score, Locomotion: Wheelchair - Score, Compre hension - Score, Expression - Score, Social Interaction - Score, Problem Solving - Score, Memory - Sc ore were [electronically] signed by Cali Barron on MonSep 16 2018 13:09:38 GMT-0600 (Central Standard Time)
[2018-09-16] MEDS ORDERED: PIPER/TAZO/NS 3.375gm 3.375 GM/100 ML BAG IVPB SCH (17:00)
[2018-09-16] MEDS: AMOX/K CLAV 875 MG TAB PO SCH (19:20)
[2018-09-16] MEDS: ARIPiprazole 5 MG TAB PO SCH (19:20)
[2018-09-16] MEDS: TRAMADOL HCL 50 MG TAB PO PRN (19:22)
--- NOTE | 2018-09-16 19:45 | RAD REPORT ---
EXAM DESCRIPTION: RAD - Knee Right 3 View - 09/16/2018 7:04 pm CLINICAL HISTORY: Knee pain and swelling, warm to touch COMPARISON: None. FINDINGS: No fracture, dislocation or periosteal reaction.Small joint effusion is seen. No joint spa ce narrowing. No air, foreign body or other suspicious soft tissue finding. IMPRESSION: Right knee minimal effusion with no acute bone finding. No acute soft tissue finding. Clinical concerns for internal derangement or occult bony injury could be further assessed with MR im aging.
[2018-09-16] MEDS: DOCUSATE NA/SENNA CONC 1 TAB PO SCH (20:09)
--- NOTE | 2018-09-17 00:22 | PN ---
Date of Progress Note: 09/16/2018 Subjective: The patient was seen this morning for followup. He was lying in bed, not in any distres s, no new complaints or problems reported by him. Denies any constipation or diarrhea. No nausea, v omiting, or shortness of breath. Objective: Vital Signs: Reviewed. HEENT: Unremarkable. Lungs: Clear to auscultation. Heart: Sounds normal. Abdomen: Soft. Bowel sounds normal. No guarding, rigidity, tenderness, or distention. Extremities : No leg edema. Impression: 1.Hip fracture. 2.Pneumonia, aspiration pneumonia. 3.Hypertension. 4.Hyperlipidemia. 5.Stroke with right-sided hemiparesis. Plan: We will go ahead and continue current medications. Continue current antihypertensive medicati on and DVT prophylaxis. The patient is on IV antibiotic for his aspiration pneumonia. Today, we marielle l change it to oral antibiotics, Augmentin. Continue other current medications. I will see him gloria rrow for followup. DAWAN/MODL Voice ID: [id number] Report ID: [id number]
--- NOTE | 2018-09-17 01:39 | FAST ---
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 Daniel Mane M.D. ADMISSION DIAGNOSIS: - Orthopaedic Disorders 08 - Unilateral Hip Fracture (08.11) RIGHT FEMORAL NECK FRACTURE. EATING: Activity did not occur on this shift EATING - SCORE: 0-UNK GROOMING: Activity did not occur on this shift GROOMING - SCORE: 0-UNK BATHING: Activity did not occur on this shift BATHING - SCORE: 0-UNK DRESSING - UPPER BODY: Patient is not dressing in public clothing ARTICLES SCORE Total number of steps: 0 DRESSING - UPPER BODY - SCORE: 0-UNK DRESSING - LOWER BODY: Patient is not dressing in public clothing ARTICLES SCORE Total number of steps: 0 DRESSING - LOWER BODY - SCORE: 0-UNK TOILETING: Activity did not occur on this shift TOILETING - SCORE: 0-UNK BLADDER MANAGEMENT: [place] removes incontinent device (Depends, pull ups, etc.); cleans the patient after accident / inco ntinent episode; and, applies new incontinent device. BLADDER MANAGEMENT - SCORE: 1-DEP BLADDER MANAGEMENT - FREQUENCY OF ACCIDENTS: BLADDER MANAGEMENT(FA) - STEP 1: How many accidents has the patient had during the current shift? 1 BOWEL MANAGEMENT: Activity did not occur on this shift BOWEL MANAGEMENT - SCORE: 7-IND TRANSFERS: BED, CHAIR, WHEELCHAIR: Activity did not occur on this shift TRANSFERS: BED, CHAIR, WHEELCHAIR - SCORE: 0-UNK TRANSFERS: TOILET: Activity did not occur on this shift TRANSFERS: TOILET - SCORE: 0-UNK TRANSFERS: SHOWER: Activity did not occur on this shift TRANSFERS: SHOWER - SCORE: 0-UNK TRANSFERS: TUB: Activity did not occur on this shift TRANSFERS: TUB - SCORE: 0-UNK LOCOMOTION: WALK: Activity did not occur on this shift LOCOMOTION: WALK - SCORE: 0-UNK LOCOMOTION: WHEELCHAIR: Activity did not occur on this shift LOCOMOTION: WHEELCHAIR - SCORE: 0-UNK COMPREHENSION: COMPREHENSION: TYPE: Both COMPREHENSION - STEP 1: Does the patient require help from a person or device, or need extra time to understand complex and a bstract ideas (such as current events, finances, discharge planning, medical issues, relationships, e tc)? No. COMPREHENSION - STEP 2: Does the patient need extra time, require an assistive device (such as glasses for visual comprehensi on or a hearing aid for auditory comprehension) or does s/he have mild difficulty understanding compl ex and abstract information? Yes. COMPREHENSION - SCORE: 6-ROBBY EXPRESSION EXPRESSION: TYPE: Both EXPRESSION - STEP 1: Does the patient require help from a person or device, or need extra time expressing complex and abst ract ideas (such as current events, finances, discharge planning, medical issues, relationships, etc) ? Yes. EXPRESSION - STEP 2: Does the patient require help to express basic necessities or ideas (such as hunger, thirst, sleep, s afety, daily schedule, room location, or discomfort) half or more of the time? No. EXPRESSION - STEP 3: How often does the patient need help to express directions and conversation about basic needs? 10-24% of the time EXPRESSION - SCORE: 4-MIN SOCIAL INTERACTION: SOCIAL INTERACTION - STEP 1: Does the patient require a helper to interact with others in social and therapeutic situations? No. SOCIAL INTERACTION - STEP 2: Does the patient need extra time in social situations, OR does s/he interact with staff, other patien ts, and family members ONLY in structured environments, OR does s/he require medication for social in teraction? Yes, patient requires medication for social interaction SOCIAL INTERACTION - SCORE: 6-ROBBY PROBLEM SOLVING: PROBLEM SOLVING - STEP 1: Does the patient need help from a person or device, or need extra time to solve complex problems such as managing a checking account or confronting interpersonal problems? Yes. PROBLEM SOLVING - STEP 2: Does the patient solve basic routine problems half or more of the time? Yes. PROBLEM SOLVING - STEP 3: How often does the patient need help to solve basic routine problems? 10%-24% of the time PROBLEM SOLVING - SCORE: 4-MIN MEMORY: MEMORY - STEP 1: Does the patient need help from a person or device, or need extra time to remember frequently encount ered people, daily routines, and executing requests? No. MEMORY - STEP 2: Does the patient have slight difficulty recognizing frequently encountered people, daily routines, or executing requests without the need for repetition or using self-initiated or environmental cues to remember? No. MEMORY - SCORE: 7-IND SIGNATURE PANEL: The following modified sections: Eating - Score, Grooming - Score, Bathing - Score, Dressing - Upper Body - Score, Dressing - Lower Body - Score, Toileting - Score, Bladder Management - Score, Bowel Man agement - Score, Transfers: Bed, Chair, Wheelchair - Score, Transfers: Toilet - Score, Transfers: Kayla wer - Score, Transfers: Tub - Score, Locomotion: Walk - Score, Locomotion: Wheelchair - Score, Compre hension - Score, Expression - Score, Social Interaction - Score, Problem Solving - Score, Memory - Sc ore were [electronically] signed by Milly Arteaga CNA on MonSep 17 2018 01:38:36 T-0600 ([facility])
[2018-09-17] MEDS: ALBUTEROL 2.5 MG/3 ML NEB SOL NEB SCH ×3 (02:00→14:00)
[2018-09-17] MEDS: ENOXAPARIN 40 MG/0.4 ML SQ SCH (07:29)
[2018-09-17] MEDS: LIDOCAINE 5% PATCH TOP SCH (07:59)
[2018-09-17] MEDS: MAGNESIUM OXIDE 400 MG TAB PO SCH ×2 (08:00→20:11)
[2018-09-17] MEDS: ESCITALOPRAM 20 MG TAB PO SCH (08:00)
[2018-09-17] MEDS: AMLODIPINE 5 MG TAB PO SCH (08:00)
[2018-09-17] MEDS: AMOX/K CLAV 875 MG TAB PO SCH ×2 (08:01→20:13)
[2018-09-17] MEDS: BACLOFEN 10 MG TAB PO SCH ×3 (08:01→20:13)
[2018-09-17] MEDS: HYDROCODONE/APAP 5/325 MG TAB PO PRN (08:01)
[2018-09-17] MEDS: PROMOD 30 ML DOSE PO SCH ×2 (08:02→20:14)
--- NOTE | 2018-09-17 09:51 | RAD REPORT ---
EXAM DESCRIPTION: RAD - Humerus Right - 09/17/2018 9:11 am CLINICAL HISTORY: Right arm pain COMPARISON: Multiple chest films back to July 2018 FINDINGS: Patient shows evidence of remodeling of a lateral clavicle fractured near the AC joint. No destructive bone process seen. Current appearance of the clavicle matches the prior chest films. No acute fracture or dislocation of the right humerus. Degenerative changes are present with subcorti douglas degenerative cystic change and marginal spurring at the articular surface of the right humerus. D egenerative change involves the bony glenoid as well. Acromial humeral joint space is normal. There is a mottled appearance to the shaft of the humerus. No cortical disruption or periosteal react ion. No soft tissue mass or soft tissue calcifications. The right humerus mottling may simply be oste openia. This would be prominent for the patient's age. A more aggressive process such as myeloma is n ot excluded. Comparison to the left humerus may be helpful if that upper extremity is asymptomatic. IMPRESSION: Right shoulder joint degenerative changes are present and there is evidence for old frac ture change of the clavicle at the AC joint. Mottling of the right humeral shaft may simply be prominent for age osteopenic change. However, myelo ma or other more aggressive process is not excluded. Comparison to the left humerus, if asymptomatic, may be helpful.
[2018-09-17] MEDS: RAMIPRIL 5 MG CAP PO SCH ×2 (10:35→20:11)
[2018-09-17] MEDS: TRAMADOL HCL 50 MG TAB PO PRN ×2 (13:19→20:12)
--- NOTE | 2018-09-17 14:06 | FAST ---
SHIFT START DATE/TIME: 09/17/2018 07:00 ([employer]) SHIFT END DATE/TIME: 09/17/2018 19:00 ([employer]) NAME ELSIE MENDOZA DATE OF : 1950 DATE OF ADMISSION: 09/10/2018 19:12 ([employer]) PHONE: AGE: 68 N# [id number] GENDER: Male ENCOUNTER PHYSICIAN: Dr. Daniel Mane M.D. ADMISSION DIAGNOSIS: - Orthopaedic Disorders 08 - Unilateral Hip Fracture (08.11) RIGHT FEMORAL NECK FRACTURE. EATING: EATING - STEP 1: Does the patient require the assistance of a person or device, or need extra time when eating? Yes. EATING - STEP 2: Does the patient require the assistance of a helper? Yes. EATING - STEP 3: Does the patient perform half or more of the eating tasks? Yes. EATING - STEP 4: Does the patient need only supervision, cuing, coaxing OR help to apply an orthosis OR help to cut fo od, open containers, pour liquids, or butter bread? Yes. EATING - SCORE: 5-SUP GROOMING: Oral care Wash, rinse, and dry face Wash, rinse, and dry hands GROOMING - STEP 1: Does the patient require the assistance of a person or device, or need extra time when grooming? Yes. GROOMING - STEP 2: Does the patient require the assistance of a helper? Yes. GROOMING - STEP 3: How much assistance does the patient require from the helper? Only prior equipment preparation/set up from the helper GROOMING - SCORE: 5-SUP BATHING: Activity did not occur on this shift BATHING - SCORE: 0-UNK DRESSING - UPPER BODY: T-shirt/pullover shirt (four steps) ARTICLES SCORE Total number of steps: 4 DRESSING - UPPER BODY - STEP 1: Does the patient require help from a person or device, or need extra time when dressing above the meek st? Yes. DRESSING - UPPER BODY - STEP 2: Does the patient require the assistance of a helper? Yes. DRESSING - UPPER BODY - STEP 3: Does the helper touch the patient while dressing? Yes. DRESSING - UPPER BODY - STEP 4: How many of the total steps does the patient complete on his/her own? 0 DRESSING - UPPER BODY - STEP 5: Does Patient require total assistance for dressing above the waist such as the helper holding clothin g and performing basically all the activities? Yes. DRESSING - UPPER BODY - SCORE: 1-DEP DRESSING - UPPER BODY - COMMENTS: Right arm flacid DRESSING - LOWER BODY: Elastic waist pants (three steps) Sock - Left foot (one step) Sock - Right foot (one step) Tied or buckled shoe - Left foot (two steps) Tied or buckled shoe - Right foot (two steps) Underwear (three steps) ARTICLES SCORE Total number of steps: 12 DRESSING - LOWER BODY - STEP 1: Does the patient require help from a person or device, or need extra time when dressing below the meek st? Yes. DRESSING - LOWER BODY - STEP 2: Does the patient require the assistance of a helper? Yes. DRESSING - LOWER BODY - STEP 3: Does the helper touch the patient while dressing? Yes. DRESSING - LOWER BODY - STEP 4: How many of the total steps does the patient complete on his/her own? 0 DRESSING - LOWER BODY - STEP 5: Does patient require total assistance for dressing below the waist such as the helper holding clothin g and performing basically all the activities? Yes. DRESSING - LOWER BODY - SCORE: 1-DEP TOILETING: TOILETING - STEP 1: Does the patient require the assistance of a person or device, or need extra time with toileting? Yes . TOILETING - STEP 2: Does the patient require the assistance of a helper? Yes. TOILETING - STEP 3: How much assistance does the patient require from the helper? Hands-on assistance from the helper TOILETING - STEP 4: Of the 3 tasks: 1) Adjusting clothing prior to use, 2) Cleansing of perineal area, 3) Adjusting clot stephenie after use; How many tasks does the patient perform WITHOUT assistance of the helper? No tasks; h elper performs all three tasks TOILETING - SCORE: 1-DEP BLADDER MANAGEMENT: Peel removes incontinent device (Depends, pull ups, etc.); cleans the patient after accident / inco ntinent episode; and, applies new incontinent device. BLADDER MANAGEMENT - SCORE: 1-DEP BLADDER MANAGEMENT - FREQUENCY OF ACCIDENTS: BLADDER MANAGEMENT(FA) - STEP 1: How many accidents has the patient had during the current shift? 3 BOWEL MANAGEMENT: Activity did not occur on this shift BOWEL MANAGEMENT - SCORE: 7-IND BOWEL MANAGEMENT - FREQUENCY OF ACCIDENTS: BOWEL MANAGEMENT(FA) - STEP 1: How many accidents has the patient had during the current shift? 0 TRANSFERS: BED, CHAIR, WHEELCHAIR: TRANSFERS: BED, CHAIR, WHEELCHAIR - STEP 1: Does the patient require assistance of a person or device, or need extra time with bed, chair, or whe elchair transfers? Yes. TRANSFERS: BED, CHAIR, WHEELCHAIR - STEP 2: Does the patient require the assistance of a helper? Yes. TRANSFERS: BED, CHAIR, WHEELCHAIR - STEP 3: How much assistance does the patient require from the helper? Lifting of the patient TRANSFERS: BED, CHAIR, WHEELCHAIR - STEP 4: Does the helper lift the patient ONLY up? ONLY down? Up AND Down? Up AND Down. TRANSFERS: BED, CHAIR, WHEELCHAIR - SCORE: 2-MAX TRANSFERS: TOILET: TRANSFERS: TOILET - STEP 1: Does the patient require the assistance of a person or device, or need extra time with toilet transfe rs? Yes. TRANSFERS: TOILET - STEP 2: Does the patient require the assistance of a helper? Yes. TRANSFERS: TOILET - STEP 3: How much assistance does the patient require from the helper? Patient performs half or more of the tr ansferring tasks TRANSFERS: TOILET - STEP 4: Does the patient need only incidental help such as contact guard or steadying during toilet transfer? No. Patient needs more than incidental help TRANSFERS: TOILET - SCORE: 3-MOD TRANSFERS: SHOWER: Activity did not occur on this shift TRANSFERS: SHOWER - SCORE: 0-UNK TRANSFERS: TUB: Activity did not occur on this shift TRANSFERS: TUB - SCORE: 0-UNK LOCOMOTION: WALK: Activity did not occur on this shift LOCOMOTION: WALK - SCORE: 0-UNK LOCOMOTION: WHEELCHAIR: LOCOMOTION: WHEELCHAIR - STEP 1: Does the patient need help to go 150 feet in a wheelchair? Yes. LOCOMOTION: WHEELCHAIR - STEP 2: How much assistance does the patient need from the helper? Only supervision, cuing, or coaxing LOCOMOTION: WHEELCHAIR - SCORE: 5-SUP COMPREHENSION: COMPREHENSION: TYPE: Both COMPREHENSION - STEP 1: Does the patient require help from a person or device, or need extra time to understand complex and a bstract ideas (such as current events, finances, discharge planning, medical issues, relationships, e tc)? No. COMPREHENSION - STEP 2: Does the patient need extra time, require an assistive device (such as glasses for visual comprehensi on or a hearing aid for auditory comprehension) or does s/he have mild difficulty understanding compl ex and abstract information? No. COMPREHENSION - SCORE: 7-IND EXPRESSION EXPRESSION: TYPE: Both EXPRESSION - STEP 1: Does the patient require help from a person or device, or need extra time expressing complex and abst ract ideas (such as current events, finances, discharge planning, medical issues, relationships, etc) ? No. EXPRESSION - STEP 2: Does the patient need extra time, require an assistive device (such as augmentive communication syste m or a communication board), OR does s/he have mild difficulty expressing complex and abstract ideas (including mild dysarthria or mild word-find problems)? No. EXPRESSION - SCORE: 7-IND SOCIAL INTERACTION: SOCIAL INTERACTION - STEP 1: Does the patient require a helper to interact with others in social and therapeutic situations? No. SOCIAL INTERACTION - STEP 2: Does the patient need extra time in social situations, OR does s/he interact with staff, other patien ts, and family members ONLY in structured environments, OR does s/he require medication for social in teraction? No. SOCIAL INTERACTION - SCORE: 7-IND PROBLEM SOLVING: PROBLEM SOLVING - STEP 1: Does the patient need help from a person or device, or need extra time to solve complex problems such as managing a checking account or confronting interpersonal problems? Yes. PROBLEM SOLVING - STEP 2: Does the patient solve basic routine problems half or more of the time? Yes. PROBLEM SOLVING - STEP 3: How often does the patient need help to solve basic routine problems? Less than 10% of the time PROBLEM SOLVING - SCORE: 5-SUP MEMORY: MEMORY - STEP 1: Does the patient need help from a person or device, or need extra time to remember frequently encount ered people, daily routines, and executing requests? No. MEMORY - STEP 2: Does the patient have slight difficulty recognizing frequently encountered people, daily routines, or executing requests without the need for repetition or using self-initiated or environmental cues to remember? No. MEMORY - SCORE: 7-IND SIGNATURE PANEL: The following modified sections: Eating - Score, Grooming - Score, Bathing - Score, Dressing - Upper Body - Score, Dressing - Upper Body - Comments:, Dressing - Lower Body - Score, Toileting - Score, Bl adder Management - Score, Bowel Management - Score, Transfers: Bed, Chair, Wheelchair - Score, Transf ers: Toilet - Score, Transfers: Shower - Score, Transfers: Tub - Score, Locomotion: Walk - Score, Loc omotion: Wheelchair - Score, Comprehension - Score, Expression - Score, Social Interaction - Score, P roblem Solving - Score, Memory - Score were [electronically] signed by Candido HuiNDiamond on Mon 14:05:48 GMT-0600 (Central Standard Time)
--- NOTE | 2018-09-17 16:20 | FAST ---
ENCOUNTER DATE AND TIME: 09/17/2018 08:00 ([employer] C[employer]TER) NAME ELSIE MENDOZA DATE OF : 1950 DATE OF ADMISSION: 09/10/2018 19:12 ([employer] C[employer]TER) PHONE: AGE: 68 SSN# [id number] GENDER: Male ENCOUNTER PHYSICIAN: Dr. Daniel Mane M.D. ADMISSION DIAGNOSIS: - Orthopaedic Disorders 08 - Unilateral Hip Fracture (08.11) RIGHT FEMORAL NECK FRACTURE. EATING: Activity did not occur on this shift EATING - SCORE: 0-UNK GROOMING: Activity did not occur on this shift GROOMING - SCORE: 0-UNK BATHING: Activity did not occur on this shift BATHING - SCORE: 0-UNK DRESSING - UPPER BODY: Activity did not occur on this shift Patient is not dressing in public clothing ARTICLES SCORE Total number of steps: 0 DRESSING - UPPER BODY - SCORE: 0-UNK DRESSING - LOWER BODY: Activity did not occur on this shift Patient is not dressing in public clothing ARTICLES SCORE Total number of steps: 0 DRESSING - LOWER BODY - SCORE: 0-UNK TOILETING: Activity did not occur on this shift TOILETING - SCORE: 0-UNK BLADDER MANAGEMENT: Activity did not occur on this shift BLADDER MANAGEMENT - SCORE: 7-IND BOWEL MANAGEMENT: Activity did not occur on this shift BOWEL MANAGEMENT - SCORE: 7-IND TRANSFERS: BED, CHAIR, WHEELCHAIR: TRANSFERS: BED, CHAIR, WHEELCHAIR - STEP 1: Does the patient require assistance of a person or device, or need extra time with bed, chair, or whe elchair transfers? Yes. TRANSFERS: BED, CHAIR, WHEELCHAIR - STEP 2: Does the patient require the assistance of a helper? Yes. TRANSFERS: BED, CHAIR, WHEELCHAIR - STEP 3: How much assistance does the patient require from the helper? Lifting of the patient TRANSFERS: BED, CHAIR, WHEELCHAIR - STEP 4: Does the helper lift the patient ONLY up? ONLY down? Up AND Down? ONLY up. TRANSFERS: BED, CHAIR, WHEELCHAIR - SCORE: 3-MOD TRANSFERS: TOILET: Activity did not occur on this shift TRANSFERS: TOILET - SCORE: 0-UNK TRANSFERS: SHOWER: Activity did not occur on this shift TRANSFERS: SHOWER - SCORE: 0-UNK TRANSFERS: TUB: Activity did not occur on this shift TRANSFERS: TUB - SCORE: 0-UNK LOCOMOTION: WALK: LOCOMOTION: WALK - STEP 1: Does the patient need help from a person or device, or need extra time to walk 150 feet? Yes. LOCOMOTION: WALK - STEP 2: How much assistance does the patient require to walk a minimum of 150 feet? Patient walks less than 1 50 feet - but more than 50 feet - with the assistance of only one helper LOCOMOTION: WALK - SCORE: 2-MAX LOCOMOTION: WHEELCHAIR: LOCOMOTION: WHEELCHAIR - STEP 1: Does the patient need help to go 150 feet in a wheelchair? No. LOCOMOTION: WHEELCHAIR - SCORE: 6-ROBBY LOCOMOTION: STAIRS: Activity did not occur on this shift LOCOMOTION: STAIRS - SCORE: 0-UNK COMPREHENSION: COMPREHENSION - SCORE: 0-UNK EXPRESSION EXPRESSION - SCORE: 0-UNK SOCIAL INTERACTION: SOCIAL INTERACTION - SCORE: 0-UNK PROBLEM SOLVING: PROBLEM SOLVING - SCORE: 0-UNK MEMORY: MEMORY - SCORE: 0-UNK SIGNATURE PANEL: The following modified sections: Transfers: Bed, Chair, Wheelchair - Score, Transfers: Toilet - Score , Locomotion: Walk - Score, Locomotion: Wheelchair - Score, Locomotion: Stairs - Score were [electron gerard] signed by Jacky Santoro PT on MonSep 17 2018 16:19:44 GMT-0600 (Central Standard Time)
--- NOTE | 2018-09-17 17:51 | R.PN ---
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 Pt denied any Shortness of Breath. Mr. 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 His right lower extremity spastic dorsiflexion is not likely due complications following surgery. Ambulated 80' using left hemiwalker requiring minimum assistance. Reports improved muscle spasms in r ight thigh. On baclofen 10 mg tid, will add magnesium oxide 400 mg bid. Self-propelled wheelchair 250' with modified independence. Propelled wheelchair 410' with standby assistance. VITAL SIGNS Temperature: 97.4 F SBP/DBP: 140/79 Pulse: 84 Resp: 16 MEDICATION ALLERGIES: Sulfa ENVIRONMENTAL ALLERGIES: None Known - Substance Allergies None Known - Other Allergies None Known NURSING: - Shower allowing shower - Skin care per protocol PRECAUTIONS: - Posterior Hip Precaution No adduction across midline No external rotation No hip flexion >90 degrees No internal rotation No wheel chair propulsion - Weight Bearing Precaution WBAT right LE ACTIVITIES OOB only with supervision THERAPIES: - Occupational Therapy Evaluate and Treat. - Physical Therapy Evaluate and Treat. PHYSICAL EXAM - Gen Alert and awake Lying in bed No apparent distress Oriented to: person, time, and place - Skin No breakdown No abnormalities - Eyes No abnormalities - ENMT No abnormalities - Neck No abnormalities - CVS RRR - Chest No abnormalities - Abd + bowel sounds - GI Soft Deferred - No abnormalities - Ext Right hip surgical site has good hemostasis. - MSK 4+/5 weakness in right lower extremity. - Neuro 4/5 strength right lower extremity. - Psych No abnormalities ASSESSMENT: Pt. is a 68 yo Right-handed white male.On 09/07/2018 he was admitted to [facility] with diagnosis RIGHT FEMORAL NECK FRACTURE.His impairment category is Orthopaedic Disorders 08 - Unilateral Hip Fracture (08.11).Pre-morbidly, Pt. was independent/mod-I in Sphincter Control, Transf ers Control, Communication, Social Cognition, Self-Care, and Locomotion; and he had good Sphincter Co ntrol.Currently, he has deficits of Endurance, Safety Awareness, Transfers Control, Balance, Self-Car e, and Locomotion.Pt. is now referred to [facility] for acute in-patient rehab ilitation in order to maximize patient's functional independence in activities of daily living, stren gth, ROM, and mobility.- Rehab Goal Patient has realistic goal of being discharged at assistance level 6-Henny to reside at Home with Fam liana/Relatives. MDM/PLAN: - Physical Therapy Decreased range of motion - to improve, our physical therapists will perform initial evaluation of p t's status upon admission and devise an individualized program for increasing patient's Range of William on. Gait dysfunction - to improve, our physical therapists will perform initial evaluation of pt's statu s upon admission and devise an individualized program for Gait Training, and Wheel Chair mobility Inability to transfer - to improve, our physical therapists will perform initial evaluation of pt's status upon admission and devise an individualized program for Bed mobility Need for home safety evaluation - to improve, our physical therapists will perform initial evaluatio n of pt's status upon admission and devise an individualized program for Home Evaluation Need in caregiver upon discharge - to improve, our physical therapists will perform initial evaluati on of pt's status upon admission and devise an individualized program for Caregiver Training New precaution - to improve, our physical therapists will perform initial evaluation of pt's status upon admission and devise an individualized program for Patient precaution education Poor balance - to improve, our physical therapists will perform initial evaluation of pt's status up on admission and devise an individualized program for Balance Training Poor endurance - to improve, our physical therapists will perform initial evaluation of pt's status upon admission and devise an individualized program for Endurance Training Weakness - to improve, our physical therapists will perform initial evaluation of pt's status upon a dmission and devise an individualized program for Aquatic Therapy, Neuromuscular Reeducation, and Str engthening Achieving independence - to improve, our physical therapists will perform initial evaluation of pt's status upon admission and devise an individualized program for Community Reintegration Activities - Occupational Therapy ADL deficits - to improve, our occupation therapists will perform initial evaluation of pt's status upon admission and devise an individualized program for Bathing, Bed mobility, Community Reintegratio n, Cooking, Dressing, Eating, Fine Motor Skills, Grooming, Homemaking, Kitchen Mobility, Laundry, Pat ient Education, Safety Awareness, Splinting - Positioning, Transfers(Toilet, Tub, Shower), and Wheel Chair Management Need for critical care specialist - to improve, our occupation therapists will perform initial evaluation of pt's status upon admission and devise an individualized program for Caregiver Training Weakness - to improve, our occupation therapists will perform initial evaluation of pt's status upon admission and devise an individualized program for Aquatic Therapy, Balance, Endurance, UE ROM, and UE strengthening - Anterior Hip Precaution No abduction No active extension No adduction across midline No external rotation No hip flexion >90 degrees No internal rotation - Diet - Liquid Texture Continue Regular - Tube Feed Continue N/A - Diet Type Continue Heart Healthy - Posterior Hip Precaution No adduction across midline No external rotation No hip flexion >90 degrees No internal rotation No wheel chair propulsion - Weight Bearing Precaution WBAT right LE - Skin care per protocol - Diet - Solid Texture Continue Regular - Shower allowing shower FUNCTIONAL STATUS: UPDATED AT WEEKLY TEAM CONFERENCE - Bladder Same accident frequency: 7-Ind - No accidents in the past 7 days - Bowel Same accident frequency: 7-Ind - No accidents in the past 7 days - Walking Same score based on distance walked: 0(N/A) - Wheelchair Same score based on distance traveled: 0(N/A) FUNCTIONAL STATUS: - Self-Care A. Eating sup B. Grooming sup C. Bathing sup D. Dressing - Upper sup E. Dressing - Lower Ruddy F. Toileting modA - Sphincter Control G: Bladder control Ind H: Bowel control Ind - Transfers Control I. Bed/Chair/Wheelchair modA J. Toilet modA K. Tub/Shower ADNO - Locomotion L. Walk/Wheelchair (C) modA L. Walk/Wheelchair (W) modA M. Stairs ADNO - Communication N. Comprehension (B) Henny O. Expression (B) Henny - Social Cognition P. Social Interaction Henny Q. Problem Solving Henny R. Memory Henny - Endurance Poor - Balance Poor - Safety Awareness Fair CURRENT FUNC. 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
[2018-09-17] MEDS: DOCUSATE NA/SENNA CONC 1 TAB PO SCH (20:12)
[2018-09-17] MEDS: ARIPiprazole 5 MG TAB PO SCH (20:13)
--- NOTE | 2018-09-17 22:29 | PN ---
Date of Progress Note: 09/17/2018 Subjective: The patient was seen this morning for followup. No new complaints or problems reported by the patient. Lying in bed, not in any distress. Objective: Vital Signs: Reviewed. HEENT: Unremarkable. Lungs: Clear to auscultation. Heart: Sounds normal. Abdomen: Soft. Bowel sounds normal. No guarding, rigidity, tenderness, or distention. Extremities: No leg edema. Impression: 1.Right femoral neck fracture. 2.Hypertension. 3.Pneumonia, aspiration. 4.Stroke with right-sided hemiparesis. Plan: Continue current medications. Continue current oral antibiotic Augmentin. Continue current D VT prophylaxis and physical therapy per guidance of Dr. Mane. I will see him tomorrow for follow up. DAWNA/MODL Voice ID: [id number] Report ID: [id number]
--- NOTE | 2018-09-18 00:27 | FAST ---
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 Daniel Mane M.D. ADMISSION DIAGNOSIS: - Orthopaedic Disorders 08 - Unilateral Hip Fracture (08.11) RIGHT FEMORAL NECK FRACTURE. EATING: Activity did not occur on this shift EATING - SCORE: 0-UNK GROOMING: Activity did not occur on this shift GROOMING - SCORE: 0-UNK BATHING: Activity did not occur on this shift BATHING - SCORE: 0-UNK DRESSING - UPPER BODY: Patient is not dressing in public clothing ARTICLES SCORE Total number of steps: 0 DRESSING - UPPER BODY - SCORE: 0-UNK DRESSING - LOWER BODY: Patient is not dressing in public clothing ARTICLES SCORE Total number of steps: 0 DRESSING - LOWER BODY - SCORE: 0-UNK TOILETING: TOILETING - STEP 1: Does the patient require the assistance of a person or device, or need extra time with toileting? Yes . TOILETING - STEP 2: Does the patient require the assistance of a helper? Yes. TOILETING - STEP 3: How much assistance does the patient require from the helper? Hands-on assistance from the helper TOILETING - STEP 4: Of the 3 tasks: 1) Adjusting clothing prior to use, 2) Cleansing of perineal area, 3) Adjusting clot stephenie after use; How many tasks does the patient perform WITHOUT assistance of the helper? No tasks; h elper performs all three tasks TOILETING - SCORE: 1-DEP BLADDER MANAGEMENT: [place] removes incontinent device (Depends, pull ups, etc.); cleans the patient after accident / inco ntinent episode; and, applies new incontinent device. BLADDER MANAGEMENT - SCORE: 1-DEP BLADDER MANAGEMENT - FREQUENCY OF ACCIDENTS: BLADDER MANAGEMENT(FA) - STEP 1: How many accidents has the patient had during the current shift? 1 BOWEL MANAGEMENT: Activity did not occur on this shift BOWEL MANAGEMENT - SCORE: 7-IND TRANSFERS: BED, CHAIR, WHEELCHAIR: Activity did not occur on this shift TRANSFERS: BED, CHAIR, WHEELCHAIR - SCORE: 0-UNK TRANSFERS: TOILET: Activity did not occur on this shift TRANSFERS: TOILET - SCORE: 0-UNK TRANSFERS: SHOWER: Activity did not occur on this shift TRANSFERS: SHOWER - SCORE: 0-UNK TRANSFERS: TUB: Activity did not occur on this shift TRANSFERS: TUB - SCORE: 0-UNK LOCOMOTION: WALK: Activity did not occur on this shift LOCOMOTION: WALK - SCORE: 0-UNK LOCOMOTION: WHEELCHAIR: Activity did not occur on this shift LOCOMOTION: WHEELCHAIR - SCORE: 0-UNK COMPREHENSION: COMPREHENSION: TYPE: Both COMPREHENSION - STEP 1: Does the patient require help from a person or device, or need extra time to understand complex and a bstract ideas (such as current events, finances, discharge planning, medical issues, relationships, e tc)? Yes. COMPREHENSION - STEP 2: Does the patient require help to understand questions or statements about basic needs or ideas (such as hunger, thirst, sleep, safety, daily schedule, room location, or discomfort) half or more of the t madeleine? No. COMPREHENSION - STEP 3: How often does the patient need help to understand directions and conversation about basic needs? 10% - 24% of the time COMPREHENSION - SCORE: 4-MIN EXPRESSION EXPRESSION: TYPE: Both EXPRESSION - STEP 1: Does the patient require help from a person or device, or need extra time expressing complex and abst ract ideas (such as current events, finances, discharge planning, medical issues, relationships, etc) ? No. EXPRESSION - STEP 2: Does the patient need extra time, require an assistive device (such as augmentive communication syste m or a communication board), OR does s/he have mild difficulty expressing complex and abstract ideas (including mild dysarthria or mild word-find problems)? Yes. EXPRESSION - SCORE: 6-ROBBY SOCIAL INTERACTION: SOCIAL INTERACTION - STEP 1: Does the patient require a helper to interact with others in social and therapeutic situations? No. SOCIAL INTERACTION - STEP 2: Does the patient need extra time in social situations, OR does s/he interact with staff, other patien ts, and family members ONLY in structured environments, OR does s/he require medication for social in teraction? Yes, patient needs extra time SOCIAL INTERACTION - SCORE: 6-ROBBY PROBLEM SOLVING: PROBLEM SOLVING - STEP 1: Does the patient need help from a person or device, or need extra time to solve complex problems such as managing a checking account or confronting interpersonal problems? Yes. PROBLEM SOLVING - STEP 2: Does the patient solve basic routine problems half or more of the time? Yes. PROBLEM SOLVING - STEP 3: How often does the patient need help to solve basic routine problems? 10%-24% of the time PROBLEM SOLVING - SCORE: 4-MIN MEMORY: MEMORY - STEP 1: Does the patient need help from a person or device, or need extra time to remember frequently encount ered people, daily routines, and executing requests? No. MEMORY - STEP 2: Does the patient have slight difficulty recognizing frequently encountered people, daily routines, or executing requests without the need for repetition or using self-initiated or environmental cues to remember? Yes. MEMORY - SCORE: 6-ROBBY SIGNATURE PANEL: The following modified sections: Eating - Score, Grooming - Score, Dressing - Upper Body - Score, Joseph ssing - Lower Body - Score, Toileting - Score, Bladder Management - Score, Bowel Management - Score, Transfers: Bed, Chair, Wheelchair - Score, Transfers: Toilet - Score, Transfers: Shower - Score, Gupta sfers: Tub - Score, Locomotion: Walk - Score, Locomotion: Wheelchair - Score, Comprehension - Score, Expression - Score, Social Interaction - Score, Problem Solving - Score, Memory - Score were [electro nically] signed by Isabela Arshad CNA on MonSep 18 2018 00:26:53 GMT-0600 (Central Standard Time)
[2018-09-18] MEDS: ALBUTEROL 2.5 MG/3 ML NEB SOL NEB SCH ×5 (01:50→20:00)
--- NOTE | 2018-09-18 07:54 | FAST ---
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 Daniel Mane M.D. ADMISSION DIAGNOSIS: - Orthopaedic Disorders 08 - Unilateral Hip Fracture (08.11) RIGHT FEMORAL NECK FRACTURE. EATING: Activity did not occur on this shift EATING - SCORE: 0-UNK GROOMING: Wash, rinse, and dry face Wash, rinse, and dry hands GROOMING - STEP 1: Does the patient require the assistance of a person or device, or need extra time when grooming? Yes. GROOMING - STEP 2: Does the patient require the assistance of a helper? Yes. GROOMING - STEP 3: How much assistance does the patient require from the helper? Cuing, coaxing, instructions, or encour agement for completion of grooming GROOMING - SCORE: 5-SUP BATHING: Abdomen Buttocks Chest Left arm Left lower leg and foot Left upper leg Perineal area Right arm Right lower leg and foot Right upper leg BATHING - STEP 1: Does the patient require the assistance of a person or device, or need extra time when bathing? Yes. BATHING - STEP 2: Does the patient require the assistance of a helper? Yes. BATHING - STEP 3: How much assistance does the patient require from the helper? Only incidental help such as placement of a wash cloth in his/her hand a few times as s/he bathes OR help to bathe just one or two areas of the body BATHING - SCORE: 4-MIN DRESSING - UPPER BODY: T-shirt/pullover shirt (four steps) ARTICLES SCORE Total number of steps: 4 DRESSING - UPPER BODY - STEP 1: Does the patient require help from a person or device, or need extra time when dressing above the [address] st? Yes. DRESSING - UPPER BODY - STEP 2: Does the patient require the assistance of a helper? Yes. DRESSING - UPPER BODY - STEP 3: Does the helper touch the patient while dressing? Yes. DRESSING - UPPER BODY - STEP 4: How many of the total steps does the patient complete on his/her own? 3 DRESSING - UPPER BODY - SCORE: 4-MIN DRESSING - LOWER BODY: Elastic waist pants (three steps) Sock - Left foot (one step) Sock - Right foot (one step) Tied or buckled shoe - Left foot (two steps) Tied or buckled shoe - Right foot (two steps) Underwear (three steps) ARTICLES SCORE Total number of steps: 12 DRESSING - LOWER BODY - STEP 1: Does the patient require help from a person or device, or need extra time when dressing below the meek st? Yes. DRESSING - LOWER BODY - STEP 2: Does the patient require the assistance of a helper? Yes. DRESSING - LOWER BODY - STEP 3: Does the helper touch the patient while dressing? Yes. DRESSING - LOWER BODY - STEP 4: How many of the total steps does the patient complete on his/her own? 6 DRESSING - LOWER BODY - SCORE: 3-MOD TOILETING: TOILETING - STEP 1: Does the patient require the assistance of a person or device, or need extra time with toileting? Yes . TOILETING - STEP 2: Does the patient require the assistance of a helper? Yes. TOILETING - STEP 3: How much assistance does the patient require from the helper? Hands-on assistance from the helper TOILETING - STEP 4: Of the 3 tasks: 1) Adjusting clothing prior to use, 2) Cleansing of perineal area, 3) Adjusting clot stephenie after use; How many tasks does the patient perform WITHOUT assistance of the helper? Two tasks TOILETING - SCORE: 3-MOD BLADDER MANAGEMENT: Activity did not occur on this shift BLADDER MANAGEMENT - SCORE: 7-IND BOWEL MANAGEMENT: Activity did not occur on this shift BOWEL MANAGEMENT - SCORE: 7-IND TRANSFERS: BED, CHAIR, WHEELCHAIR: Activity did not occur on this shift TRANSFERS: BED, CHAIR, WHEELCHAIR - SCORE: 0-UNK TRANSFERS: TOILET: TRANSFERS: TOILET - STEP 1: Does the patient require the assistance of a person or device, or need extra time with toilet transfe rs? Yes. TRANSFERS: TOILET - STEP 2: Does the patient require the assistance of a helper? Yes. TRANSFERS: TOILET - STEP 3: How much assistance does the patient require from the helper? Patient performs half or more of the tr ansferring tasks TRANSFERS: TOILET - STEP 4: Does the patient need only incidental help such as contact guard or steadying during toilet transfer? No. Patient needs more than incidental help TRANSFERS: TOILET - SCORE: 3-MOD TRANSFERS: SHOWER: TRANSFERS: SHOWER - STEP 1: Does the patient require the assistance of a person or device, or need extra time with shower transfe rs? Yes. TRANSFERS: SHOWER - STEP 2: Does the patient require the assistance of a helper? Yes. TRANSFERS: SHOWER - STEP 3: How much assistance does the patient require from the helper? More than incidental help TRANSFERS: SHOWER - STEP 4: How much more help does the patient require from the helper? Lifting the patient either up OR down fr om the wheelchair onto the shower chair TRANSFERS: SHOWER - SCORE: 3-MOD TRANSFERS: TUB: Activity did not occur on this shift TRANSFERS: TUB - SCORE: 0-UNK LOCOMOTION: WALK: Activity did not occur on this shift LOCOMOTION: WALK - SCORE: 0-UNK LOCOMOTION: WHEELCHAIR: Activity did not occur on this shift LOCOMOTION: WHEELCHAIR - SCORE: 0-UNK LOCOMOTION: STAIRS: Activity did not occur on this shift LOCOMOTION: STAIRS - SCORE: 0-UNK COMPREHENSION: COMPREHENSION: TYPE: Visual COMPREHENSION - STEP 1: Does the patient require help from a person or device, or need extra time to understand complex and a bstract ideas (such as current events, finances, discharge planning, medical issues, relationships, e tc)? Yes. COMPREHENSION - STEP 2: Does the patient require help to understand questions or statements about basic needs or ideas (such as hunger, thirst, sleep, safety, daily schedule, room location, or discomfort) half or more of the t madeleine? No. COMPREHENSION - STEP 3: How often does the patient need help to understand directions and conversation about basic needs? Les s than 10% of the time COMPREHENSION - SCORE: 5-SUP EXPRESSION EXPRESSION: TYPE: Non-Vocal EXPRESSION - STEP 1: Does the patient require help from a person or device, or need extra time expressing complex and abst ract ideas (such as current events, finances, discharge planning, medical issues, relationships, etc) ? No. EXPRESSION - STEP 2: Does the patient need extra time, require an assistive device (such as augmentive communication syste m or a communication board), OR does s/he have mild difficulty expressing complex and abstract ideas (including mild dysarthria or mild word-find problems)? Yes. EXPRESSION - SCORE: 6-ROBBY SOCIAL INTERACTION: SOCIAL INTERACTION - STEP 1: Does the patient require a helper to interact with others in social and therapeutic situations? No. SOCIAL INTERACTION - STEP 2: Does the patient need extra time in social situations, OR does s/he interact with staff, other patien ts, and family members ONLY in structured environments, OR does s/he require medication for social in teraction? No. SOCIAL INTERACTION - SCORE: 7-IND PROBLEM SOLVING: PROBLEM SOLVING - STEP 1: Does the patient need help from a person or device, or need extra time to solve complex problems such as managing a checking account or confronting interpersonal problems? Yes. PROBLEM SOLVING - STEP 2: Does the patient solve basic routine problems half or more of the time? Yes. PROBLEM SOLVING - STEP 3: How often does the patient need help to solve basic routine problems? Less than 10% of the time PROBLEM SOLVING - SCORE: 5-SUP MEMORY: MEMORY - STEP 1: Does the patient need help from a person or device, or need extra time to remember frequently encount ered people, daily routines, and executing requests? Yes. MEMORY - STEP 2: How often does the patient need help to remember frequently encountered people, daily routines, and e xecuting requests? Less than 10% of the time MEMORY - SCORE: 5-SUP SIGNATURE PANEL: The following modified sections: Eating - Score, Grooming - Score, Bathing - Score, Dressing - Upper Body - Score, Dressing - Lower Body - Score, Toileting - Score, Transfers: Bed, Chair, Wheelchair - S core, Transfers: Toilet - Score, Transfers: Shower - Score, Transfers: Tub - Score, Comprehension - S core, Expression - Score, Social Interaction - Score, Problem Solving - Score, Memory - Score were [e lectronically] signed by VALE Reyes on MonSep 18 2018 07:53:58 T-0600 ([place] Time)
[2018-09-18] MEDS: ENOXAPARIN 40 MG/0.4 ML SQ SCH (08:22)
[2018-09-18] MEDS: LIDOCAINE 5% PATCH TOP SCH (08:22)
[2018-09-18] MEDS: RAMIPRIL 5 MG CAP PO SCH ×2 (08:23→19:02)
[2018-09-18] MEDS: AMLODIPINE 5 MG TAB PO SCH (08:23)
[2018-09-18] MEDS: MAGNESIUM OXIDE 400 MG TAB PO SCH ×2 (08:23→19:01)
[2018-09-18] MEDS: ESCITALOPRAM 20 MG TAB PO SCH (08:23)
[2018-09-18] MEDS: BACLOFEN 10 MG TAB PO SCH ×3 (08:24→20:02)
[2018-09-18] MEDS: HYDROCODONE/APAP 5/325 MG TAB PO PRN ×2 (08:24→19:01)
[2018-09-18] MEDS: AMOX/K CLAV 875 MG TAB PO SCH ×2 (08:25→19:03)
[2018-09-18] MEDS: PROMOD 30 ML DOSE PO SCH ×2 (08:25→19:02)
--- NOTE | 2018-09-18 08:36 | RAD REPORT ---
EXAM DESCRIPTION: RAD - Humerus Left - 09/18/2018 8:15 am CLINICAL HISTORY: abnormal R humerus xray Arm pain COMPARISON: Humerus Right dated 09/17/2018 FINDINGS: No fracture, dislocation or aggressive marrow lesion of the left humerus. 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 The moth-eaten appearance of the humerus seen on the ri ght side is not present on the left indicating that the right-sided findings are likely pathologic in etiology.
[2018-09-18] MEDS: TRAMADOL HCL 50 MG TAB PO PRN (12:21)
--- NOTE | 2018-09-18 14:56 | FAST ---
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 Daniel Mane M.D. ADMISSION DIAGNOSIS: - Orthopaedic Disorders 08 - Unilateral Hip Fracture (08.11) RIGHT FEMORAL NECK FRACTURE. EATING: EATING - STEP 1: Does the patient require the assistance of a person or device, or need extra time when eating? Yes. EATING - STEP 2: Does the patient require the assistance of a helper? Yes. EATING - STEP 3: Does the patient perform half or more of the eating tasks? Yes. EATING - STEP 4: Does the patient need only supervision, cuing, coaxing OR help to apply an orthosis OR help to cut fo od, open containers, pour liquids, or butter bread? Yes. EATING - SCORE: 5-SUP GROOMING: Oral care Wash, rinse, and dry face Wash, rinse, and dry hands GROOMING - STEP 1: Does the patient require the assistance of a person or device, or need extra time when grooming? Yes. GROOMING - STEP 2: Does the patient require the assistance of a helper? No. The patient only requires an assistive devic e, OR takes more than reasonable time to groom, OR there is a concern for safety as the patient groom s GROOMING - SCORE: 6-ROBBY BATHING: Activity did not occur on this shift BATHING - SCORE: 0-UNK DRESSING - UPPER BODY: T-shirt/pullover shirt (four steps) ARTICLES SCORE Total number of steps: 4 DRESSING - UPPER BODY - STEP 1: Does the patient require help from a person or device, or need extra time when dressing above the meek st? Yes. DRESSING - UPPER BODY - STEP 2: Does the patient require the assistance of a helper? Yes. DRESSING - UPPER BODY - STEP 3: Does the helper touch the patient while dressing? Yes. DRESSING - UPPER BODY - STEP 4: How many of the total steps does the patient complete on his/her own? 0 DRESSING - UPPER BODY - STEP 5: Does Patient require total assistance for dressing above the waist such as the helper holding clothin g and performing basically all the activities? Yes. DRESSING - UPPER BODY - SCORE: 1-DEP DRESSING - LOWER BODY: Elastic waist pants (three steps) Sock - Left foot (one step) Sock - Right foot (one step) Tied or buckled shoe - Left foot (two steps) Tied or buckled shoe - Right foot (two steps) Underwear (three steps) ARTICLES SCORE Total number of steps: 12 DRESSING - LOWER BODY - STEP 1: Does the patient require help from a person or device, or need extra time when dressing below the meek st? Yes. DRESSING - LOWER BODY - STEP 2: Does the patient require the assistance of a helper? Yes. DRESSING - LOWER BODY - STEP 3: Does the helper touch the patient while dressing? Yes. DRESSING - LOWER BODY - STEP 4: How many of the total steps does the patient complete on his/her own? 0 DRESSING - LOWER BODY - STEP 5: Does patient require total assistance for dressing below the waist such as the helper holding clothin g and performing basically all the activities? Yes. DRESSING - LOWER BODY - SCORE: 1-DEP TOILETING: TOILETING - STEP 1: Does the patient require the assistance of a person or device, or need extra time with toileting? Yes . TOILETING - STEP 2: Does the patient require the assistance of a helper? Yes. TOILETING - STEP 3: How much assistance does the patient require from the helper? Hands-on assistance from the helper TOILETING - STEP 4: Of the 3 tasks: 1) Adjusting clothing prior to use, 2) Cleansing of perineal area, 3) Adjusting clot stephenie after use; How many tasks does the patient perform WITHOUT assistance of the helper? No tasks; h elper performs all three tasks TOILETING - SCORE: 1-DEP BLADDER MANAGEMENT: Florala removes incontinent device (Depends, pull ups, etc.); cleans the patient after accident / inco ntinent episode; and, applies new incontinent device. BLADDER MANAGEMENT - SCORE: 1-DEP BLADDER MANAGEMENT - FREQUENCY OF ACCIDENTS: BLADDER MANAGEMENT(FA) - STEP 1: How many accidents has the patient had during the current shift? 2 BOWEL MANAGEMENT: BOWEL MANAGEMENT - STEP 1: Does the patient control bowels completely and intentionally without equipment devices or medications AND is always continent? No. BOWEL MANAGEMENT - STEP 2: Does the patient require the assistance of a helper? No, patient requires medication for control such as stool softeners, suppositories, laxatives, enemas, or OTC medications BOWEL MANAGEMENT - SCORE: 6-ROBBY BOWEL MANAGEMENT - FREQUENCY OF ACCIDENTS: BOWEL MANAGEMENT(FA) - STEP 1: How many accidents has the patient had during the current shift? 0 TRANSFERS: BED, CHAIR, WHEELCHAIR: TRANSFERS: BED, CHAIR, WHEELCHAIR - STEP 1: Does the patient require assistance of a person or device, or need extra time with bed, chair, or whe elchair transfers? Yes. TRANSFERS: BED, CHAIR, WHEELCHAIR - STEP 2: Does the patient require the assistance of a helper? Yes. TRANSFERS: BED, CHAIR, WHEELCHAIR - STEP 3: How much assistance does the patient require from the helper? Lifting of the legs TRANSFERS: BED, CHAIR, WHEELCHAIR - STEP 4: How many legs does the patient require the helper to lift? both legs TRANSFERS: BED, CHAIR, WHEELCHAIR - SCORE: 3-MOD TRANSFERS: TOILET: TRANSFERS: TOILET - STEP 1: Does the patient require the assistance of a person or device, or need extra time with toilet transfe rs? Yes. TRANSFERS: TOILET - STEP 2: Does the patient require the assistance of a helper? Yes. TRANSFERS: TOILET - STEP 3: How much assistance does the patient require from the helper? Patient performs less than half of the transferring tasks TRANSFERS: TOILET - STEP 4: Does the patient require total assistance for the toilet transfer such as the helper doing basically all the lifting? Yes. TRANSFERS: TOILET - SCORE: 1-DEP TRANSFERS: SHOWER: Activity did not occur on this shift TRANSFERS: SHOWER - SCORE: 0-UNK TRANSFERS: TUB: Activity did not occur on this shift TRANSFERS: TUB - SCORE: 0-UNK LOCOMOTION: WALK: Activity did not occur on this shift LOCOMOTION: WALK - SCORE: 0-UNK LOCOMOTION: WHEELCHAIR: LOCOMOTION: WHEELCHAIR - STEP 1: Does the patient need help to go 150 feet in a wheelchair? Yes. LOCOMOTION: WHEELCHAIR - STEP 2: How much assistance does the patient need from the helper? Only supervision, cuing, or coaxing LOCOMOTION: WHEELCHAIR - SCORE: 5-SUP COMPREHENSION: COMPREHENSION: TYPE: Both COMPREHENSION - STEP 1: Does the patient require help from a person or device, or need extra time to understand complex and a bstract ideas (such as current events, finances, discharge planning, medical issues, relationships, e tc)? No. COMPREHENSION - STEP 2: Does the patient need extra time, require an assistive device (such as glasses for visual comprehensi on or a hearing aid for auditory comprehension) or does s/he have mild difficulty understanding compl ex and abstract information? No. COMPREHENSION - SCORE: 7-IND EXPRESSION EXPRESSION: TYPE: Both EXPRESSION - STEP 1: Does the patient require help from a person or device, or need extra time expressing complex and abst ract ideas (such as current events, finances, discharge planning, medical issues, relationships, etc) ? No. EXPRESSION - STEP 2: Does the patient need extra time, require an assistive device (such as augmentive communication syste m or a communication board), OR does s/he have mild difficulty expressing complex and abstract ideas (including mild dysarthria or mild word-find problems)? No. EXPRESSION - SCORE: 7-IND SOCIAL INTERACTION: SOCIAL INTERACTION - STEP 1: Does the patient require a helper to interact with others in social and therapeutic situations? No. SOCIAL INTERACTION - STEP 2: Does the patient need extra time in social situations, OR does s/he interact with staff, other patien ts, and family members ONLY in structured environments, OR does s/he require medication for social in teraction? No. SOCIAL INTERACTION - SCORE: 7-IND PROBLEM SOLVING: PROBLEM SOLVING - STEP 1: Does the patient need help from a person or device, or need extra time to solve complex problems such as managing a checking account or confronting interpersonal problems? Yes. PROBLEM SOLVING - STEP 2: Does the patient solve basic routine problems half or more of the time? Yes. PROBLEM SOLVING - STEP 3: How often does the patient need help to solve basic routine problems? Less than 10% of the time PROBLEM SOLVING - SCORE: 5-SUP MEMORY: MEMORY - STEP 1: Does the patient need help from a person or device, or need extra time to remember frequently encount ered people, daily routines, and executing requests? No. MEMORY - STEP 2: Does the patient have slight difficulty recognizing frequently encountered people, daily routines, or executing requests without the need for repetition or using self-initiated or environmental cues to remember? No. MEMORY - SCORE: 7-IND SIGNATURE PANEL: The following modified sections: Eating - Score, Grooming - Score, Bathing - Score, Dressing - Upper Body - Score, Dressing - Lower Body - Score, Toileting - Score, Bladder Management - Score, Bowel Man agement - Score, Transfers: Bed, Chair, Wheelchair - Score, Transfers: Toilet - Score, Transfers: Kayla wer - Score, Transfers: Tub - Score, Locomotion: Walk - Score, Locomotion: Wheelchair - Score, Compre hension - Score, Expression - Score, Social Interaction - Score, Problem Solving - Score, Memory - Sc ore were [electronically] signed by Dasha Wei C.N.A. on MonSep 18 2018 14:55:58 GMT-0600 ([place] Standard Time)
--- NOTE | 2018-09-18 17:37 | R.PN ---
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 Pt denied any Shortness of Breath. Mr. 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 His right lower extremity spastic dorsiflexion is not likely due complications following surgery. Ambulated 80' using left hemiwalker requiring minimum assistance. Reports improved muscle spasms in r ight thigh. On baclofen 10 mg tid, will add magnesium oxide 400 mg bid. Self-propelled wheelchair 250' with modified independence. Propelled wheelchair 410' with standby assistance. VITAL SIGNS Temperature: 97.6 F SBP/DBP: 132/75 Pulse: 70 Resp: 14 MEDICATION ALLERGIES: Sulfa ENVIRONMENTAL ALLERGIES: None Known - Substance Allergies None Known - Other Allergies None Known NURSING: - Shower allowing shower - Skin care per protocol PRECAUTIONS: - Posterior Hip Precaution No adduction across midline No external rotation No hip flexion >90 degrees No internal rotation No wheel chair propulsion - Weight Bearing Precaution WBAT right LE ACTIVITIES OOB only with supervision THERAPIES: - Occupational Therapy Evaluate and Treat. - Physical Therapy Evaluate and Treat. PHYSICAL EXAM - Gen Alert and awake Lying in bed No apparent distress Oriented to: person, time, and place - Skin No breakdown No abnormalities - Eyes No abnormalities - ENMT No abnormalities - Neck No abnormalities - CVS RRR - Chest No abnormalities - Abd + bowel sounds - GI Soft Deferred - No abnormalities - Ext Right hip surgical site has good hemostasis. - MSK 4+/5 weakness in right lower extremity. - Neuro 4/5 strength right lower extremity. - Psych No abnormalities ASSESSMENT: Pt. is a 68 yo Right-handed white male.On 09/07/2018 he was admitted to [facility] with diagnosis RIGHT FEMORAL NECK FRACTURE.His impairment category is Orthopaedic Disorders 08 - Unilateral Hip Fracture (08.11).Pre-morbidly, Pt. was independent/mod-I in Sphincter Control, Transf ers Control, Communication, Social Cognition, Self-Care, and Locomotion; and he had good Sphincter Co ntrol.Currently, he has deficits of Endurance, Safety Awareness, Transfers Control, Balance, Self-Car e, and Locomotion.Pt. is now referred to [facility] for acute in-patient rehab ilitation in order to maximize patient's functional independence in activities of daily living, stren gth, ROM, and mobility.- Rehab Goal Patient has realistic goal of being discharged at assistance level 6-Henny to reside at Home with Fam liana/Relatives. MDM/PLAN: - Physical Therapy Decreased range of motion - to improve, our physical therapists will perform initial evaluation of p t's status upon admission and devise an individualized program for increasing patient's Range of William on. Gait dysfunction - to improve, our physical therapists will perform initial evaluation of pt's statu s upon admission and devise an individualized program for Gait Training, and Wheel Chair mobility Inability to transfer - to improve, our physical therapists will perform initial evaluation of pt's status upon admission and devise an individualized program for Bed mobility Need for home safety evaluation - to improve, our physical therapists will perform initial evaluatio n of pt's status upon admission and devise an individualized program for Home Evaluation Need in caregiver upon discharge - to improve, our physical therapists will perform initial evaluati on of pt's status upon admission and devise an individualized program for Caregiver Training New precaution - to improve, our physical therapists will perform initial evaluation of pt's status upon admission and devise an individualized program for Patient precaution education Poor balance - to improve, our physical therapists will perform initial evaluation of pt's status up on admission and devise an individualized program for Balance Training Poor endurance - to improve, our physical therapists will perform initial evaluation of pt's status upon admission and devise an individualized program for Endurance Training Weakness - to improve, our physical therapists will perform initial evaluation of pt's status upon a dmission and devise an individualized program for Aquatic Therapy, Neuromuscular Reeducation, and Str engthening Achieving independence - to improve, our physical therapists will perform initial evaluation of pt's status upon admission and devise an individualized program for Community Reintegration Activities - Occupational Therapy ADL deficits - to improve, our occupation therapists will perform initial evaluation of pt's status upon admission and devise an individualized program for Bathing, Bed mobility, Community Reintegratio n, Cooking, Dressing, Eating, Fine Motor Skills, Grooming, Homemaking, Kitchen Mobility, Laundry, Pat ient Education, Safety Awareness, Splinting - Positioning, Transfers(Toilet, Tub, Shower), and Wheel Chair Management Need for care information associate - to improve, our occupation therapists will perform initial evaluation of pt's status upon admission and devise an individualized program for Caregiver Training Weakness - to improve, our occupation therapists will perform initial evaluation of pt's status upon admission and devise an individualized program for Aquatic Therapy, Balance, Endurance, UE ROM, and UE strengthening - Anterior Hip Precaution No abduction No active extension No adduction across midline No external rotation No hip flexion >90 degrees No internal rotation - Diet - Liquid Texture Continue Regular - Tube Feed Continue N/A - Diet Type Continue Heart Healthy - Posterior Hip Precaution No adduction across midline No external rotation No hip flexion >90 degrees No internal rotation No wheel chair propulsion - Weight Bearing Precaution WBAT right LE - Skin care per protocol - Diet - Solid Texture Continue Regular - Shower allowing shower FUNCTIONAL STATUS: UPDATED AT WEEKLY TEAM CONFERENCE - Bladder Same accident frequency: 7-Ind - No accidents in the past 7 days - Bowel Same accident frequency: 7-Ind - No accidents in the past 7 days - Walking Same score based on distance walked: 0(N/A) - Wheelchair Same score based on distance traveled: 0(N/A) FUNCTIONAL STATUS: - Self-Care A. Eating sup B. Grooming sup C. Bathing sup D. Dressing - Upper sup E. Dressing - Lower Ruddy F. Toileting modA - Sphincter Control G: Bladder control Ind H: Bowel control Ind - Transfers Control I. Bed/Chair/Wheelchair modA J. Toilet modA K. Tub/Shower ADNO - Locomotion L. Walk/Wheelchair (C) modA L. Walk/Wheelchair (W) modA M. Stairs ADNO - Communication N. Comprehension (B) Henny O. Expression (B) Henny - Social Cognition P. Social Interaction Henny Q. Problem Solving Henny R. Memory Henny - Endurance Poor - Balance Poor - Safety Awareness Fair CURRENT FUNC. 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
[2018-09-18] MEDS: ARIPiprazole 5 MG TAB PO SCH (19:00)
[2018-09-18] MEDS: DOCUSATE NA/SENNA CONC 1 TAB PO SCH (20:02)
--- NOTE | 2018-09-19 00:46 | PN ---
Date of Progress Note: 09/18/2018 Subjective: The patient was seen this morning for followup. No new complaints or problems reported. Yesterday, he was complaining of some right arm pain, and he was concerned if he has any fracture t here when he fell down; and since we had not x-rayed it, we did order x-ray of the right humerus. Re sults were reviewed; and today, I have ordered a left humerus x-ray for comparison per radiologist's recommendation. Physical Examination: HEENT: Unremarkable. Lungs: Clear to auscultation. Heart: Sounds normal. Abdomen: Soft. Bowel sounds normal. No guarding, rigidity, tenderness, or distention. Extremities: No leg edema. Impression: 1.Right hip fracture. 2.Stroke with right-sided hemiparesis. 3.Aspiration pneumonia. 4.Anemia. Plan: We will continue current medication including Lovenox for DVT prophylaxis, Augmentin for pneum onia, physical therapy under guidance of Dr. Mane. Today, we will get an x-ray of the left humer us; and I have also ordered serum-protein electrophoresis, serum immunoelectrophoresis, and immunoglo bulin G, immunoglobulin A, and immunoglobulin M level. I will see him tomorrow for followup. DAWNA/MODL Voice ID: [id number] Report ID: [id number]
[2018-09-19] MEDS: ALBUTEROL 2.5 MG/3 ML NEB SOL NEB SCH ×4 (02:00→20:00)
[2018-09-19] MEDS: HYDROCODONE/APAP 5/325 MG TAB PO PRN ×4 (03:07→14:36)
[2018-09-19] MEDS: ENOXAPARIN 40 MG/0.4 ML SQ SCH (07:09)
[2018-09-19] MEDS: AMLODIPINE 5 MG TAB PO SCH (08:03)
[2018-09-19] MEDS: ESCITALOPRAM 20 MG TAB PO SCH (08:04)
[2018-09-19] MEDS: BACLOFEN 10 MG TAB PO SCH ×3 (08:04→21:01)
[2018-09-19] MEDS: RAMIPRIL 5 MG CAP PO SCH ×2 (08:04→19:41)
[2018-09-19] MEDS: MAGNESIUM OXIDE 400 MG TAB PO SCH ×2 (08:04→19:41)
[2018-09-19] MEDS: PROMOD 30 ML DOSE PO SCH ×2 (08:05→19:41)
[2018-09-19] MEDS: AMOX/K CLAV 875 MG TAB PO SCH ×2 (08:05→19:41)
[2018-09-19] MEDS: LIDOCAINE 5% PATCH TOP SCH (10:52)
--- NOTE | 2018-09-19 13:09 | FAST ---
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 Daniel Mane M.D. ADMISSION DIAGNOSIS: - Orthopaedic Disorders 08 - Unilateral Hip Fracture (08.11) RIGHT FEMORAL NECK FRACTURE. EATING: EATING - STEP 1: Does the patient require the assistance of a person or device, or need extra time when eating? Yes. EATING - STEP 2: Does the patient require the assistance of a helper? Yes. EATING - STEP 3: Does the patient perform half or more of the eating tasks? Yes. EATING - STEP 4: Does the patient need only supervision, cuing, coaxing OR help to apply an orthosis OR help to cut fo od, open containers, pour liquids, or butter bread? Yes. EATING - SCORE: 5-SUP GROOMING: Comb/brush hair Oral care Wash, rinse, and dry face Wash, rinse, and dry hands GROOMING - STEP 1: Does the patient require the assistance of a person or device, or need extra time when grooming? Yes. GROOMING - STEP 2: Does the patient require the assistance of a helper? Yes. GROOMING - STEP 3: How much assistance does the patient require from the helper? Cuing, coaxing, instructions, or encour agement for completion of grooming GROOMING - SCORE: 5-SUP BATHING: Activity did not occur on this shift BATHING - SCORE: 0-UNK DRESSING - UPPER BODY: Activity did not occur on this shift ARTICLES SCORE Total number of steps: 0 DRESSING - UPPER BODY - SCORE: 0-UNK DRESSING - LOWER BODY: Activity did not occur on this shift ARTICLES SCORE Total number of steps: 0 DRESSING - LOWER BODY - SCORE: 0-UNK TOILETING: TOILETING - STEP 1: Does the patient require the assistance of a person or device, or need extra time with toileting? Yes . TOILETING - STEP 2: Does the patient require the assistance of a helper? Yes. TOILETING - STEP 3: How much assistance does the patient require from the helper? Hands-on assistance from the helper TOILETING - STEP 4: Of the 3 tasks: 1) Adjusting clothing prior to use, 2) Cleansing of perineal area, 3) Adjusting clot stephenie after use; How many tasks does the patient perform WITHOUT assistance of the helper? One task TOILETING - SCORE: 2-MAX BLADDER MANAGEMENT: [place] removes incontinent device (Depends, pull ups, etc.); cleans the patient after accident / inco ntinent episode; and, applies new incontinent device. BLADDER MANAGEMENT - SCORE: 1-DEP BLADDER MANAGEMENT - FREQUENCY OF ACCIDENTS: BLADDER MANAGEMENT(FA) - STEP 1: How many accidents has the patient had during the current shift? 3 BOWEL MANAGEMENT: BOWEL MANAGEMENT - STEP 1: Does the patient control bowels completely and intentionally without equipment devices or medications AND is always continent? No. BOWEL MANAGEMENT - STEP 2: Does the patient require the assistance of a helper? No, patient requires and manages independently a n assistive device such as a bedpan, bedside commode, absorbent pad, incontinent device, or collectin g device BOWEL MANAGEMENT - SCORE: 6-ROBBY TRANSFERS: BED, CHAIR, WHEELCHAIR: TRANSFERS: BED, CHAIR, WHEELCHAIR - STEP 1: Does the patient require assistance of a person or device, or need extra time with bed, chair, or whe elchair transfers? Yes. TRANSFERS: BED, CHAIR, WHEELCHAIR - STEP 2: Does the patient require the assistance of a helper? Yes. TRANSFERS: BED, CHAIR, WHEELCHAIR - STEP 3: How much assistance does the patient require from the helper? Lifting of the patient TRANSFERS: BED, CHAIR, WHEELCHAIR - STEP 4: Does the helper lift the patient ONLY up? ONLY down? Up AND Down? ONLY up. TRANSFERS: BED, CHAIR, WHEELCHAIR - SCORE: 3-MOD TRANSFERS: TOILET: TRANSFERS: TOILET - STEP 1: Does the patient require the assistance of a person or device, or need extra time with toilet transfe rs? Yes. TRANSFERS: TOILET - STEP 2: Does the patient require the assistance of a helper? Yes. TRANSFERS: TOILET - STEP 3: How much assistance does the patient require from the helper? Patient performs half or more of the tr ansferring tasks TRANSFERS: TOILET - STEP 4: Does the patient need only incidental help such as contact guard or steadying during toilet transfer? No. Patient needs more than incidental help TRANSFERS: TOILET - SCORE: 3-MOD TRANSFERS: SHOWER: Activity did not occur on this shift TRANSFERS: SHOWER - SCORE: 0-UNK TRANSFERS: TUB: Activity did not occur on this shift TRANSFERS: TUB - SCORE: 0-UNK LOCOMOTION: WALK: Activity did not occur on this shift LOCOMOTION: WALK - SCORE: 0-UNK LOCOMOTION: WHEELCHAIR: Activity did not occur on this shift LOCOMOTION: WHEELCHAIR - SCORE: 0-UNK COMPREHENSION: COMPREHENSION: TYPE: Both COMPREHENSION - STEP 1: Does the patient require help from a person or device, or need extra time to understand complex and a bstract ideas (such as current events, finances, discharge planning, medical issues, relationships, e tc)? No. COMPREHENSION - STEP 2: Does the patient need extra time, require an assistive device (such as glasses for visual comprehensi on or a hearing aid for auditory comprehension) or does s/he have mild difficulty understanding compl ex and abstract information? Yes. COMPREHENSION - SCORE: 6-ROBBY EXPRESSION EXPRESSION: TYPE: Both EXPRESSION - STEP 1: Does the patient require help from a person or device, or need extra time expressing complex and abst ract ideas (such as current events, finances, discharge planning, medical issues, relationships, etc) ? Yes. EXPRESSION - STEP 2: Does the patient require help to express basic necessities or ideas (such as hunger, thirst, sleep, s afety, daily schedule, room location, or discomfort) half or more of the time? No. EXPRESSION - STEP 3: How often does the patient need help to express directions and conversation about basic needs? Less t watt 10% of the time EXPRESSION - SCORE: 5-SUP SOCIAL INTERACTION: SOCIAL INTERACTION - STEP 1: Does the patient require a helper to interact with others in social and therapeutic situations? Yes. SOCIAL INTERACTION - STEP 2: Does the patient interact appropriately half or more of the time? Yes. SOCIAL INTERACTION - STEP 3: How often does the patient need help to interact appropriately? Less than 10% of the time SOCIAL INTERACTION - SCORE: 5-SUP PROBLEM SOLVING: PROBLEM SOLVING - STEP 1: Does the patient need help from a person or device, or need extra time to solve complex problems such as managing a checking account or confronting interpersonal problems? Yes. PROBLEM SOLVING - STEP 2: Does the patient solve basic routine problems half or more of the time? Yes. PROBLEM SOLVING - STEP 3: How often does the patient need help to solve basic routine problems? Less than 10% of the time PROBLEM SOLVING - SCORE: 5-SUP MEMORY: MEMORY - STEP 1: Does the patient need help from a person or device, or need extra time to remember frequently encount ered people, daily routines, and executing requests? Yes. MEMORY - STEP 2: How often does the patient need help to remember frequently encountered people, daily routines, and e xecuting requests? Less than 10% of the time MEMORY - SCORE: 5-SUP SIGNATURE PANEL: The following modified sections: Eating - Score, Grooming - Score, Bathing - Score, Dressing - Upper Body - Score, Dressing - Lower Body - Score, Toileting - Score, Bladder Management - Score, Bowel Man agement - Score, Transfers: Bed, Chair, Wheelchair - Score, Transfers: Toilet - Score, Transfers: Kayla wer - Score, Transfers: Tub - Score, Locomotion: Walk - Score, Locomotion: Wheelchair - Score, Compre hension - Score, Expression - Score, Social Interaction - Score, Problem Solving - Score, Memory - Sc ore were [electronically] signed by Cali Barron on MonSep 19 2018 13:08:48 GMT-0600 (Central Standard Time)
--- NOTE | 2018-09-19 16:24 | R.PN ---
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 Pt denied any Shortness of Breath. Mr. 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 His right lower extremity spastic dorsiflexion is not likely due complications following surgery. 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 Pain patches on right humerus, right shoulder and now on mid back due to muscle and arthritic pain. H is back pain is likely secondary to back muscle spasms while holding the hemiwalker in the left hand and shifting weight to the left side due to his right sided stroke related weakness. He ambulated 115 ' using the left hemiwalker with minimum assistance. He self-propelled a wheelchair 500' with modifie d independence. VITAL SIGNS Temperature: 4 F SBP/DBP: 155/82 Pulse: 84 Resp: 16 MEDICATION ALLERGIES: Sulfa ENVIRONMENTAL ALLERGIES: None Known - Substance Allergies None Known - Other Allergies None Known NURSING: - Shower allowing shower - Skin care per protocol PRECAUTIONS: - Posterior Hip Precaution No adduction across midline No external rotation No hip flexion >90 degrees No internal rotation No wheel chair propulsion - Weight Bearing Precaution WBAT right LE ACTIVITIES OOB only with supervision THERAPIES: - Occupational Therapy Evaluate and Treat. - Physical Therapy Evaluate and Treat. PHYSICAL EXAM - Gen Alert and awake Lying in bed No apparent distress Oriented to: person, time, and place - Skin No breakdown No abnormalities - Eyes No abnormalities - ENMT No abnormalities - Neck No abnormalities - CVS RRR - Chest No abnormalities - Abd + bowel sounds - GI Soft Deferred - No abnormalities - Ext Right hip surgical site has good hemostasis. - MSK 3+/5 weakness in right lower extremity. 1/5 right upper extremity strength. - Neuro 4/5 strength right lower extremity. - Psych No abnormalities ASSESSMENT: Pt. is a 68 yo Right-handed white male.On 09/07/2018 he was admitted to [facility] with diagnosis RIGHT FEMORAL NECK FRACTURE.His impairment category is Orthopaedic Disorders 08 - Unilateral Hip Fracture (08.11).Pre-morbidly, Pt. was independent/mod-I in Sphincter Control, Transf ers Control, Communication, Social Cognition, Self-Care, and Locomotion; and he had good Sphincter Co ntrol.Currently, he has deficits of Endurance, Safety Awareness, Transfers Control, Balance, Self-Car e, and Locomotion.Pt. is now referred to [facility] for acute in-patient rehab ilitation in order to maximize patient's functional independence in activities of daily living, stren gth, ROM, and mobility.- Rehab Goal Patient has realistic goal of being discharged at assistance level 6-Henny to reside at Home with Fam liana/Relatives. MDM/PLAN: - Physical Therapy Decreased range of motion - to improve, our physical therapists will perform initial evaluation of p t's status upon admission and devise an individualized program for increasing patient's Range of William on. Gait dysfunction - to improve, our physical therapists will perform initial evaluation of pt's statu s upon admission and devise an individualized program for Gait Training, and Wheel Chair mobility Inability to transfer - to improve, our physical therapists will perform initial evaluation of pt's status upon admission and devise an individualized program for Bed mobility Need for home safety evaluation - to improve, our physical therapists will perform initial evaluatio n of pt's status upon admission and devise an individualized program for Home Evaluation Need in caregiver upon discharge - to improve, our physical therapists will perform initial evaluati on of pt's status upon admission and devise an individualized program for Caregiver Training New precaution - to improve, our physical therapists will perform initial evaluation of pt's status upon admission and devise an individualized program for Patient precaution education Poor balance - to improve, our physical therapists will perform initial evaluation of pt's status up on admission and devise an individualized program for Balance Training Poor endurance - to improve, our physical therapists will perform initial evaluation of pt's status upon admission and devise an individualized program for Endurance Training Weakness - to improve, our physical therapists will perform initial evaluation of pt's status upon a dmission and devise an individualized program for Aquatic Therapy, Neuromuscular Reeducation, and Str engthening Achieving independence - to improve, our physical therapists will perform initial evaluation of pt's status upon admission and devise an individualized program for Community Reintegration Activities - Occupational Therapy ADL deficits - to improve, our occupation therapists will perform initial evaluation of pt's status upon admission and devise an individualized program for Bathing, Bed mobility, Community Reintegratio n, Cooking, Dressing, Eating, Fine Motor Skills, Grooming, Homemaking, Kitchen Mobility, Laundry, Pat ient Education, Safety Awareness, Splinting - Positioning, Transfers(Toilet, Tub, Shower), and Wheel Chair Management Need for care management specialist - to improve, our occupation therapists will perform initial evaluation of pt's status upon admission and devise an individualized program for Caregiver Training Weakness - to improve, our occupation therapists will perform initial evaluation of pt's status upon admission and devise an individualized program for Aquatic Therapy, Balance, Endurance, UE ROM, and UE strengthening - Anterior Hip Precaution No abduction No active extension No adduction across midline No external rotation No hip flexion >90 degrees No internal rotation - Diet - Liquid Texture Continue Regular - Tube Feed Continue N/A - Diet Type Continue Heart Healthy - Posterior Hip Precaution No adduction across midline No external rotation No hip flexion >90 degrees No internal rotation No wheel chair propulsion - Weight Bearing Precaution WBAT right LE - Skin care per protocol - Diet - Solid Texture Continue Regular - Shower allowing shower FUNCTIONAL STATUS: UPDATED AT WEEKLY TEAM CONFERENCE - Bladder Same accident frequency: 7-Ind - No accidents in the past 7 days - Bowel Same accident frequency: 7-Ind - No accidents in the past 7 days - Walking Same score based on distance walked: 0(N/A) - Wheelchair Same score based on distance traveled: 0(N/A) FUNCTIONAL STATUS: - Self-Care A. Eating sup B. Grooming sup C. Bathing sup D. Dressing - Upper sup E. Dressing - Lower Ruddy F. Toileting modA - Sphincter Control G: Bladder control Ind H: Bowel control Ind - Transfers Control I. Bed/Chair/Wheelchair modA J. Toilet modA K. Tub/Shower ADNO - Locomotion L. Walk/Wheelchair (C) modA L. Walk/Wheelchair (W) modA M. Stairs ADNO - Communication N. Comprehension (B) Henny O. Expression (B) Henny - Social Cognition P. Social Interaction Henny Q. Problem Solving Henny R. Memory Henny - Endurance Poor - Balance Poor - Safety Awareness Fair CURRENT FUNC. 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
[2018-09-19] MEDS: ARIPiprazole 5 MG TAB PO SCH (19:41)
[2018-09-19] MEDS: DOCUSATE NA/SENNA CONC 1 TAB PO SCH (21:01)
[2018-09-20] MEDS: ALBUTEROL 2.5 MG/3 ML NEB SOL NEB SCH ×3 (02:00→14:00)
--- NOTE | 2018-09-20 06:27 | PN ---
Date of Progress Note: 09/19/2018 Subjective: The patient was seen this morning for followup. No new complaints or problems reported. He was lying in bed, not in any distress. Physical Examination: Vital Signs: Reviewed. HEENT: Examination unremarkable. Lungs: Clear to auscultation. Heart: Sounds normal. Abdomen: Soft. Bowel sounds normal. No guarding, rigidity, tenderness, or distention. Extremities: No leg edema. Impression: 1.Hip fracture. 2.Hypertension. 3.Stroke with right-sided hemiparesis. 4.Constipation. 5.Aspiration pneumonia. Plan: We will continue current medications. We will see him tomorrow for followup. Continue curren t antihypertensive medication and DVT prophylaxis, and continue Augmentin per order. I will see him tomorrow for followup. DAWNA/MODL Voice ID: [id number] Report ID: [id number]
--- NOTE | 2018-09-20 06:28 | FAST ---
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 Daniel Mane M.D. ADMISSION DIAGNOSIS: - Orthopaedic Disorders 08 - Unilateral Hip Fracture (08.11) RIGHT FEMORAL NECK FRACTURE. EATING: Activity did not occur on this shift EATING - SCORE: 0-UNK GROOMING: Activity did not occur on this shift GROOMING - SCORE: 0-UNK BATHING: Activity did not occur on this shift BATHING - SCORE: 0-UNK DRESSING - UPPER BODY: Activity did not occur on this shift ARTICLES SCORE Total number of steps: 0 DRESSING - UPPER BODY - SCORE: 0-UNK DRESSING - LOWER BODY: Activity did not occur on this shift ARTICLES SCORE Total number of steps: 0 DRESSING - LOWER BODY - SCORE: 0-UNK TOILETING: TOILETING - STEP 1: Does the patient require the assistance of a person or device, or need extra time with toileting? Yes . TOILETING - STEP 2: Does the patient require the assistance of a helper? Yes. TOILETING - STEP 3: How much assistance does the patient require from the helper? Hands-on assistance from the helper TOILETING - STEP 4: Of the 3 tasks: 1) Adjusting clothing prior to use, 2) Cleansing of perineal area, 3) Adjusting clot stephenie after use; How many tasks does the patient perform WITHOUT assistance of the helper? No tasks; h elper performs all three tasks TOILETING - SCORE: 1-DEP BLADDER MANAGEMENT: [place] removes incontinent device (Depends, pull ups, etc.); cleans the patient after accident / inco ntinent episode; and, applies new incontinent device. BLADDER MANAGEMENT - SCORE: 1-DEP BOWEL MANAGEMENT: Activity did not occur on this shift BOWEL MANAGEMENT - SCORE: 7-IND TRANSFERS: BED, CHAIR, WHEELCHAIR: TRANSFERS: BED, CHAIR, WHEELCHAIR - STEP 1: Does the patient require assistance of a person or device, or need extra time with bed, chair, or whe elchair transfers? Yes. TRANSFERS: BED, CHAIR, WHEELCHAIR - STEP 2: Does the patient require the assistance of a helper? Yes. TRANSFERS: BED, CHAIR, WHEELCHAIR - STEP 3: How much assistance does the patient require from the helper? Lifting of the legs TRANSFERS: BED, CHAIR, WHEELCHAIR - STEP 4: How many legs does the patient require the helper to lift? both legs TRANSFERS: BED, CHAIR, WHEELCHAIR - SCORE: 3-MOD TRANSFERS: TOILET: Activity did not occur on this shift TRANSFERS: TOILET - SCORE: 0-UNK TRANSFERS: SHOWER: Activity did not occur on this shift TRANSFERS: SHOWER - SCORE: 0-UNK TRANSFERS: TUB: Activity did not occur on this shift TRANSFERS: TUB - SCORE: 0-UNK LOCOMOTION: WALK: Activity did not occur on this shift LOCOMOTION: WALK - SCORE: 0-UNK LOCOMOTION: WHEELCHAIR: Activity did not occur on this shift LOCOMOTION: WHEELCHAIR - SCORE: 0-UNK COMPREHENSION: COMPREHENSION: TYPE: Both COMPREHENSION - STEP 1: Does the patient require help from a person or device, or need extra time to understand complex and a bstract ideas (such as current events, finances, discharge planning, medical issues, relationships, e tc)? No. COMPREHENSION - STEP 2: Does the patient need extra time, require an assistive device (such as glasses for visual comprehensi on or a hearing aid for auditory comprehension) or does s/he have mild difficulty understanding compl ex and abstract information? Yes. COMPREHENSION - SCORE: 6-ROBBY EXPRESSION EXPRESSION: TYPE: Both EXPRESSION - STEP 1: Does the patient require help from a person or device, or need extra time expressing complex and abst ract ideas (such as current events, finances, discharge planning, medical issues, relationships, etc) ? No. EXPRESSION - STEP 2: Does the patient need extra time, require an assistive device (such as augmentive communication syste m or a communication board), OR does s/he have mild difficulty expressing complex and abstract ideas (including mild dysarthria or mild word-find problems)? No. EXPRESSION - SCORE: 7-IND SOCIAL INTERACTION: SOCIAL INTERACTION - STEP 1: Does the patient require a helper to interact with others in social and therapeutic situations? No. SOCIAL INTERACTION - STEP 2: Does the patient need extra time in social situations, OR does s/he interact with staff, other patien ts, and family members ONLY in structured environments, OR does s/he require medication for social in teraction? Yes, patient requires medication for social interaction SOCIAL INTERACTION - SCORE: 6-ROBBY PROBLEM SOLVING: PROBLEM SOLVING - STEP 1: Does the patient need help from a person or device, or need extra time to solve complex problems such as managing a checking account or confronting interpersonal problems? Yes. PROBLEM SOLVING - STEP 2: Does the patient solve basic routine problems half or more of the time? Yes. PROBLEM SOLVING - STEP 3: How often does the patient need help to solve basic routine problems? 10%-24% of the time PROBLEM SOLVING - SCORE: 4-MIN MEMORY: MEMORY - STEP 1: Does the patient need help from a person or device, or need extra time to remember frequently encount ered people, daily routines, and executing requests? No. MEMORY - STEP 2: Does the patient have slight difficulty recognizing frequently encountered people, daily routines, or executing requests without the need for repetition or using self-initiated or environmental cues to remember? No. MEMORY - SCORE: 7-IND SIGNATURE PANEL: The following modified sections: Eating - Score, Grooming - Score, Bathing - Score, Dressing - Upper Body - Score, Dressing - Lower Body - Score, Toileting - Score, Bladder Management - Score, Bowel Man agement - Score, Transfers: Bed, Chair, Wheelchair - Score, Transfers: Toilet - Score, Transfers: Kayla wer - Score, Transfers: Tub - Score, Locomotion: Walk - Score, Locomotion: Wheelchair - Score, Compre hension - Score, Expression - Score, Social Interaction - Score, Problem Solving - Score, Memory - Sc ore were [electronically] signed by Milly Artegaa CNA on MonSep 20 2018 02:35:19 T-0600 ([facility])
[2018-09-20 06:36] LABS: Albumin 3.1 g/dL (3.4-5.0); Potassium 3.9 mmol/L (3.5-5.1)
[2018-09-20 06:42] LABS: Absolute Lymphocytes (CBC) 1.2 K/uL (0.7-4.9); Absolute Monocytes 0.4 K/uL (0.1-1.3); Absolute Neutrophil 4.2 K/uL (1.8-8.0); Basophils % 0.6 % (0-1.3); Hematocrit 31.2 % (39.6-49.0); MPV 7.3 fL (7.6-11.3); Monocytes % 6.7 % (3.3-12.3); RBC Red Blood Cell Count 3.56 M/uL (4.33-5.43)
[2018-09-20] MEDS: HYDROCODONE/APAP 5/325 MG TAB PO PRN ×2 (07:25→12:07)
[2018-09-20] MEDS: ENOXAPARIN 40 MG/0.4 ML SQ SCH (07:25)
[2018-09-20] MEDS: LIDOCAINE 5% PATCH TOP SCH (07:26)
[2018-09-20] MEDS: BACLOFEN 10 MG TAB PO SCH ×3 (08:06→20:14)
[2018-09-20] MEDS: RAMIPRIL 5 MG CAP PO SCH ×2 (08:06→19:20)
[2018-09-20] MEDS: MAGNESIUM OXIDE 400 MG TAB PO SCH ×2 (08:06→19:19)
[2018-09-20] MEDS: ESCITALOPRAM 20 MG TAB PO SCH (08:07)
[2018-09-20] MEDS: AMOX/K CLAV 875 MG TAB PO SCH ×2 (08:08→19:19)
[2018-09-20] MEDS: AMLODIPINE 5 MG TAB PO SCH (08:08)
[2018-09-20] MEDS: PROMOD 30 ML DOSE PO SCH ×2 (08:09→19:20)
[2018-09-20] MEDS: TRAMADOL HCL 50 MG TAB PO PRN ×2 (09:29→13:43)
--- NOTE | 2018-09-20 14:36 | FAST ---
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 Daniel Mane M.D. ADMISSION DIAGNOSIS: - Orthopaedic Disorders 08 - Unilateral Hip Fracture (08.11) RIGHT FEMORAL NECK FRACTURE. EATING: EATING - STEP 1: Does the patient require the assistance of a person or device, or need extra time when eating? Yes. EATING - STEP 2: Does the patient require the assistance of a helper? Yes. EATING - STEP 3: Does the patient perform half or more of the eating tasks? Yes. EATING - STEP 4: Does the patient need only supervision, cuing, coaxing OR help to apply an orthosis OR help to cut fo od, open containers, pour liquids, or butter bread? Yes. EATING - SCORE: 5-SUP GROOMING: Oral care GROOMING - STEP 1: Does the patient require the assistance of a person or device, or need extra time when grooming? Yes. GROOMING - STEP 2: Does the patient require the assistance of a helper? Yes. GROOMING - STEP 3: How much assistance does the patient require from the helper? Cuing, coaxing, instructions, or encour agement for completion of grooming GROOMING - SCORE: 5-SUP BATHING: Activity did not occur on this shift BATHING - SCORE: 0-UNK DRESSING - UPPER BODY: T-shirt/pullover shirt (four steps) ARTICLES SCORE Total number of steps: 4 DRESSING - UPPER BODY - STEP 1: Does the patient require help from a person or device, or need extra time when dressing above the meek st? Yes. DRESSING - UPPER BODY - STEP 2: Does the patient require the assistance of a helper? Yes. DRESSING - UPPER BODY - STEP 3: Does the helper touch the patient while dressing? Yes. DRESSING - UPPER BODY - STEP 4: How many of the total steps does the patient complete on his/her own? 3 DRESSING - UPPER BODY - SCORE: 4-MIN DRESSING - LOWER BODY: ARTICLES SCORE Total number of steps: 12 DRESSING - LOWER BODY - STEP 1: Does the patient require help from a person or device, or need extra time when dressing below the meek st? Yes. DRESSING - LOWER BODY - STEP 2: Does the patient require the assistance of a helper? Yes. DRESSING - LOWER BODY - STEP 3: Does the helper touch the patient while dressing? Yes. DRESSING - LOWER BODY - STEP 4: How many of the total steps does the patient complete on his/her own? 4 DRESSING - LOWER BODY - STEP 5: Does patient require total assistance for dressing below the waist such as the helper holding clothin g and performing basically all the activities? No. DRESSING - LOWER BODY - SCORE: 2-MAX TOILETING: TOILETING - STEP 1: Does the patient require the assistance of a person or device, or need extra time with toileting? Yes . TOILETING - STEP 2: Does the patient require the assistance of a helper? Yes. TOILETING - STEP 3: How much assistance does the patient require from the helper? Hands-on assistance from the helper TOILETING - STEP 4: Of the 3 tasks: 1) Adjusting clothing prior to use, 2) Cleansing of perineal area, 3) Adjusting clot stephenie after use; How many tasks does the patient perform WITHOUT assistance of the helper? One task TOILETING - SCORE: 2-MAX BLADDER MANAGEMENT: [place] removes incontinent device (Depends, pull ups, etc.); cleans the patient after accident / inco ntinent episode; and, applies new incontinent device. BLADDER MANAGEMENT - SCORE: 1-DEP BLADDER MANAGEMENT - FREQUENCY OF ACCIDENTS: BLADDER MANAGEMENT(FA) - STEP 1: How many accidents has the patient had during the current shift? 2 BOWEL MANAGEMENT: Activity did not occur on this shift BOWEL MANAGEMENT - SCORE: 7-IND TRANSFERS: BED, CHAIR, WHEELCHAIR: TRANSFERS: BED, CHAIR, WHEELCHAIR - STEP 1: Does the patient require assistance of a person or device, or need extra time with bed, chair, or whe elchair transfers? Yes. TRANSFERS: BED, CHAIR, WHEELCHAIR - STEP 2: Does the patient require the assistance of a helper? Yes. TRANSFERS: BED, CHAIR, WHEELCHAIR - STEP 3: How much assistance does the patient require from the helper? Lifting of the legs TRANSFERS: BED, CHAIR, WHEELCHAIR - STEP 4: How many legs does the patient require the helper to lift? both legs TRANSFERS: BED, CHAIR, WHEELCHAIR - SCORE: 3-MOD TRANSFERS: TOILET: TRANSFERS: TOILET - STEP 1: Does the patient require the assistance of a person or device, or need extra time with toilet transfe rs? Yes. TRANSFERS: TOILET - STEP 2: Does the patient require the assistance of a helper? Yes. TRANSFERS: TOILET - STEP 3: How much assistance does the patient require from the helper? Patient performs less than half of the transferring tasks TRANSFERS: TOILET - STEP 4: Does the patient require total assistance for the toilet transfer such as the helper doing basically all the lifting? No. TRANSFERS: TOILET - SCORE: 2-MAX TRANSFERS: SHOWER: Activity did not occur on this shift TRANSFERS: SHOWER - SCORE: 0-UNK TRANSFERS: TUB: Activity did not occur on this shift TRANSFERS: TUB - SCORE: 0-UNK LOCOMOTION: WALK: Activity did not occur on this shift LOCOMOTION: WALK - SCORE: 0-UNK LOCOMOTION: WHEELCHAIR: Activity did not occur on this shift LOCOMOTION: WHEELCHAIR - SCORE: 0-UNK COMPREHENSION: COMPREHENSION: TYPE: Both COMPREHENSION - STEP 1: Does the patient require help from a person or device, or need extra time to understand complex and a bstract ideas (such as current events, finances, discharge planning, medical issues, relationships, e tc)? No. COMPREHENSION - STEP 2: Does the patient need extra time, require an assistive device (such as glasses for visual comprehensi on or a hearing aid for auditory comprehension) or does s/he have mild difficulty understanding compl ex and abstract information? Yes. COMPREHENSION - SCORE: 6-ROBBY EXPRESSION EXPRESSION: TYPE: Both EXPRESSION - STEP 1: Does the patient require help from a person or device, or need extra time expressing complex and abst ract ideas (such as current events, finances, discharge planning, medical issues, relationships, etc) ? No. EXPRESSION - STEP 2: Does the patient need extra time, require an assistive device (such as augmentive communication syste m or a communication board), OR does s/he have mild difficulty expressing complex and abstract ideas (including mild dysarthria or mild word-find problems)? Yes. EXPRESSION - SCORE: 6-ROBBY SOCIAL INTERACTION: SOCIAL INTERACTION - STEP 1: Does the patient require a helper to interact with others in social and therapeutic situations? No. SOCIAL INTERACTION - STEP 2: Does the patient need extra time in social situations, OR does s/he interact with staff, other patien ts, and family members ONLY in structured environments, OR does s/he require medication for social in teraction? Yes, patient needs extra time SOCIAL INTERACTION - SCORE: 6-ROBBY PROBLEM SOLVING: PROBLEM SOLVING - STEP 1: Does the patient need help from a person or device, or need extra time to solve complex problems such as managing a checking account or confronting interpersonal problems? No. PROBLEM SOLVING - STEP 2: Does the patient require extra time to make decisions or solve problems, OR does s/he have slight dif ficulty reading, initiating, or self-correcting in unfamiliar situations? Yes, patient needs extra ti me. PROBLEM SOLVING - SCORE: 6-ROBBY MEMORY: MEMORY - STEP 1: Does the patient need help from a person or device, or need extra time to remember frequently encount ered people, daily routines, and executing requests? No. MEMORY - STEP 2: Does the patient have slight difficulty recognizing frequently encountered people, daily routines, or executing requests without the need for repetition or using self-initiated or environmental cues to remember? Yes. MEMORY - SCORE: 6-ROBBY SIGNATURE PANEL: The following modified sections: Eating - Score, Grooming - Score, Bathing - Score, Dressing - Upper Body - Score, Dressing - Lower Body - Score, Toileting - Score, Bladder Management - Score, Bowel Man agement - Score, Transfers: Bed, Chair, Wheelchair - Score, Transfers: Toilet - Score, Transfers: Kayla wer - Score, Transfers: Tub - Score, Locomotion: Walk - Score, Locomotion: Wheelchair - Score, Compre hension - Score, Expression - Score, Social Interaction - Score, Problem Solving - Score, Memory - Sc ore were [electronically] signed by Cali Barron on MonSep 20 2018 14:35:59 GMT-0600 (Central Standard Time)
[2018-09-20] MEDS ORDERED: ALBUTEROL 2.5 MG/3 ML NEB SOL NEB PRN (14:45)
--- NOTE | 2018-09-20 15:44 | R.PN ---
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 Pt denied any Shortness of Breath. Mr. 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 His right lower extremity spastic dorsiflexion is not likely due complications following surgery. 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 Pain patches on right humerus, right shoulder and now on mid back due to muscle and arthritic pain. A ll pain areas improved after patches were placed. His back pain is likely secondary to back muscle sp asms while holding the hemiwalker in the left hand and shifting weight to the left side due to his ri ght sided stroke related weakness. He ambulated 200' using the left hemiwalker with minimum assistanc e. He self-propelled a wheelchair 500' with modified independence. Hgb 10.7, prealbumin 23.0, glucose 92-124. VITAL SIGNS Temperature: 97.0 F SBP/DBP: 144/87 Pulse: 82 Resp: 16 MEDICATION ALLERGIES: Sulfa ENVIRONMENTAL ALLERGIES: None Known - Substance Allergies None Known - Other Allergies None Known NURSING: - Shower allowing shower - Skin care per protocol PRECAUTIONS: - Posterior Hip Precaution No adduction across midline No external rotation No hip flexion >90 degrees No internal rotation No wheel chair propulsion - Weight Bearing Precaution WBAT right LE ACTIVITIES OOB only with supervision THERAPIES: - Occupational Therapy Evaluate and Treat. - Physical Therapy Evaluate and Treat. PHYSICAL EXAM - Gen Alert and awake Lying in bed No apparent distress Oriented to: person, time, and place - Skin No breakdown No abnormalities - Eyes No abnormalities - ENMT No abnormalities - Neck No abnormalities - CVS RRR - Chest No abnormalities - Abd + bowel sounds - GI Soft Deferred - No abnormalities - Ext Right hip surgical site has good hemostasis. - MSK 3+/5 weakness in right lower extremity. 1/5 right upper extremity strength. - Neuro 4/5 strength right lower extremity. - Psych No abnormalities ASSESSMENT: Pt. is a 68 yo Right-handed white male.On 09/07/2018 he was admitted to [facility] with diagnosis RIGHT FEMORAL NECK FRACTURE.His impairment category is Orthopaedic Disorders 08 - Unilateral Hip Fracture (03.17).Pre-morbidly, Pt. was independent/mod-I in Sphincter Control, Transf ers Control, Communication, Social Cognition, Self-Care, and Locomotion; and he had good Sphincter Co ntrol.Currently, he has deficits of Endurance, Safety Awareness, Transfers Control, Balance, Self-Car e, and Locomotion.Pt. is now referred to [facility] for acute in-patient rehab ilitation in order to maximize patient's functional independence in activities of daily living, stren gth, ROM, and mobility.- Rehab Goal Patient has realistic goal of being discharged at assistance level 6-Henny to reside at Home with Fam liana/Relatives. MDM/PLAN: - Physical Therapy Decreased range of motion - to improve, our physical therapists will perform initial evaluation of p t's status upon admission and devise an individualized program for increasing patient's Range of William on. Gait dysfunction - to improve, our physical therapists will perform initial evaluation of pt's statu s upon admission and devise an individualized program for Gait Training, and Wheel Chair mobility Inability to transfer - to improve, our physical therapists will perform initial evaluation of pt's status upon admission and devise an individualized program for Bed mobility Need for home safety evaluation - to improve, our physical therapists will perform initial evaluatio n of pt's status upon admission and devise an individualized program for Home Evaluation Need in caregiver upon discharge - to improve, our physical therapists will perform initial evaluati on of pt's status upon admission and devise an individualized program for Caregiver Training New precaution - to improve, our physical therapists will perform initial evaluation of pt's status upon admission and devise an individualized program for Patient precaution education Poor balance - to improve, our physical therapists will perform initial evaluation of pt's status up on admission and devise an individualized program for Balance Training Poor endurance - to improve, our physical therapists will perform initial evaluation of pt's status upon admission and devise an individualized program for Endurance Training Weakness - to improve, our physical therapists will perform initial evaluation of pt's status upon a dmission and devise an individualized program for Aquatic Therapy, Neuromuscular Reeducation, and Str engthening Achieving independence - to improve, our physical therapists will perform initial evaluation of pt's status upon admission and devise an individualized program for Community Reintegration Activities - Occupational Therapy ADL deficits - to improve, our occupation therapists will perform initial evaluation of pt's status upon admission and devise an individualized program for Bathing, Bed mobility, Community Reintegratio n, Cooking, Dressing, Eating, Fine Motor Skills, Grooming, Homemaking, Kitchen Mobility, Laundry, Pat ient Education, Safety Awareness, Splinting - Positioning, Transfers(Toilet, Tub, Shower), and Wheel Chair Management Need for laboratory animal caretaker - to improve, our occupation therapists will perform initial evaluation of pt's status upon admission and devise an individualized program for Caregiver Training Weakness - to improve, our occupation therapists will perform initial evaluation of pt's status upon admission and devise an individualized program for Aquatic Therapy, Balance, Endurance, UE ROM, and UE strengthening - Anterior Hip Precaution No abduction No active extension No adduction across midline No external rotation No hip flexion >90 degrees No internal rotation - Diet - Liquid Texture Continue Regular - Tube Feed Continue N/A - Diet Type Continue Heart Healthy - Posterior Hip Precaution No adduction across midline No external rotation No hip flexion >90 degrees No internal rotation No wheel chair propulsion - Weight Bearing Precaution WBAT right LE - Skin care per protocol - Diet - Solid Texture Continue Regular - Shower allowing shower FUNCTIONAL STATUS: UPDATED AT WEEKLY TEAM CONFERENCE - Bladder Same accident frequency: 7-Ind - No accidents in the past 7 days - Bowel Same accident frequency: 7-Ind - No accidents in the past 7 days - Walking Same score based on distance walked: 0(N/A) - Wheelchair Same score based on distance traveled: 0(N/A) FUNCTIONAL STATUS: - Self-Care A. Eating sup B. Grooming sup C. Bathing sup D. Dressing - Upper sup E. Dressing - Lower Ruddy F. Toileting modA - Sphincter Control G: Bladder control Ind H: Bowel control Ind - Transfers Control I. Bed/Chair/Wheelchair modA J. Toilet modA K. Tub/Shower ADNO - Locomotion L. Walk/Wheelchair (C) modA L. Walk/Wheelchair (W) modA M. Stairs ADNO - Communication N. Comprehension (B) Henny O. Expression (B) Henny - Social Cognition P. Social Interaction Henny Q. Problem Solving Henny R. Memory Henny - Endurance Poor - Balance Poor - Safety Awareness Fair CURRENT [facility]. DEFICITS: Endurance, Safety Awareness, Transfers Control, Balance, Self-Care, and Locomotion SIGNATURE PANEL: (HAT AND CAP SEWER)
--- NOTE | 2018-09-20 16:49 | FAST ---
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 Daniel Mane M.D. ADMISSION DIAGNOSIS: - Orthopaedic Disorders 08 - Unilateral Hip Fracture (08.11) RIGHT FEMORAL NECK FRACTURE. EATING: Activity did not occur on this shift EATING - SCORE: 0-UNK GROOMING: Activity did not occur on this shift GROOMING - SCORE: 0-UNK BATHING: Activity did not occur on this shift BATHING - SCORE: 0-UNK DRESSING - UPPER BODY: Activity did not occur on this shift Patient is not dressing in public clothing ARTICLES SCORE Total number of steps: 0 DRESSING - UPPER BODY - SCORE: 0-UNK DRESSING - LOWER BODY: Activity did not occur on this shift Patient is not dressing in public clothing ARTICLES SCORE Total number of steps: 0 DRESSING - LOWER BODY - SCORE: 0-UNK TOILETING: Activity did not occur on this shift TOILETING - SCORE: 0-UNK BLADDER MANAGEMENT: Activity did not occur on this shift BLADDER MANAGEMENT - SCORE: 7-IND BOWEL MANAGEMENT: Activity did not occur on this shift BOWEL MANAGEMENT - SCORE: 7-IND TRANSFERS: BED, CHAIR, WHEELCHAIR: TRANSFERS: BED, CHAIR, WHEELCHAIR - STEP 1: Does the patient require assistance of a person or device, or need extra time with bed, chair, or whe elchair transfers? Yes. TRANSFERS: BED, CHAIR, WHEELCHAIR - STEP 2: Does the patient require the assistance of a helper? Yes. TRANSFERS: BED, CHAIR, WHEELCHAIR - STEP 3: How much assistance does the patient require from the helper? Lifting of the patient TRANSFERS: BED, CHAIR, WHEELCHAIR - STEP 4: Does the helper lift the patient ONLY up? ONLY down? Up AND Down? ONLY up. TRANSFERS: BED, CHAIR, WHEELCHAIR - SCORE: 3-MOD TRANSFERS: TOILET: Activity did not occur on this shift TRANSFERS: TOILET - SCORE: 0-UNK TRANSFERS: SHOWER: Activity did not occur on this shift TRANSFERS: SHOWER - SCORE: 0-UNK TRANSFERS: TUB: Activity did not occur on this shift TRANSFERS: TUB - SCORE: 0-UNK LOCOMOTION: WALK: LOCOMOTION: WALK - STEP 1: Does the patient need help from a person or device, or need extra time to walk 150 feet? Yes. LOCOMOTION: WALK - STEP 2: How much assistance does the patient require to walk a minimum of 150 feet? Patient walks less than 1 50 feet - but more than 50 feet - with the assistance of only one helper LOCOMOTION: WALK - SCORE: 2-MAX LOCOMOTION: WHEELCHAIR: LOCOMOTION: WHEELCHAIR - STEP 1: Does the patient need help to go 150 feet in a wheelchair? No. LOCOMOTION: WHEELCHAIR - SCORE: 6-ROBBY LOCOMOTION: STAIRS: Activity did not occur on this shift LOCOMOTION: STAIRS - SCORE: 0-UNK COMPREHENSION: COMPREHENSION - SCORE: 0-UNK EXPRESSION EXPRESSION - SCORE: 0-UNK SOCIAL INTERACTION: SOCIAL INTERACTION - SCORE: 0-UNK PROBLEM SOLVING: PROBLEM SOLVING - SCORE: 0-UNK MEMORY: MEMORY - SCORE: 0-UNK SIGNATURE PANEL: The following modified sections: Transfers: Bed, Chair, Wheelchair - Score, Transfers: Toilet - Score , Locomotion: Walk - Score, Locomotion: Wheelchair - Score, Locomotion: Stairs - Score were [electron gerard] signed by Jacky Santoro PT on MonSep 20 2018 16:49:04 GMT-0600 (Central Standard Time)
[2018-09-20] MEDS: ARIPiprazole 5 MG TAB PO SCH (19:19)
[2018-09-20] MEDS: DOCUSATE NA/SENNA CONC 1 TAB PO SCH (20:14)
--- NOTE | 2018-09-20 21:17 | PN ---
Date of Progress Note: 09/20/2018 Subjective: The patient was seen this morning for followup. He was lying in bed, not in any distress. Objective: vital Signs: Reviewed. HEENT: Unremarkable. Lungs: Clear to auscultation. Heart: Sounds normal. Abdomen: Soft. Bowel sounds normal. No guarding, rigidity, tenderness, or distention. Extremities: No leg edema. Impression: 1. Hip fracture. 2. Hypertension. 3. Constipation. 4. Coronary artery disease. 5. Stroke with right-sided hemiparesis. 6. Aspiration pneumonia. Plan: We will continue current medications. Continue current antibiotic which is Augmentin and change nebulizer treatment to p.r.n. now. He is improving very well. Continue physical therapy under guidance of Dr. Mane. Continue current anticoagulation for DVT prophylaxis. DAWNA/MODL Voice ID: [id number] Report ID: [id number]
[2018-09-21] MEDS: ENOXAPARIN 40 MG/0.4 ML SQ SCH (06:13)
--- NOTE | 2018-09-21 07:45 | FAST ---
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 Daniel Mane M.D. ADMISSION DIAGNOSIS: - Orthopaedic Disorders 08 - Unilateral Hip Fracture (08.11) RIGHT FEMORAL NECK FRACTURE. EATING: Activity did not occur on this shift EATING - SCORE: 0-UNK GROOMING: Activity did not occur on this shift GROOMING - SCORE: 0-UNK BATHING: Activity did not occur on this shift BATHING - SCORE: 0-UNK DRESSING - UPPER BODY: Patient is not dressing in public clothing ARTICLES SCORE Total number of steps: 0 DRESSING - UPPER BODY - SCORE: 0-UNK DRESSING - LOWER BODY: Patient is not dressing in public clothing ARTICLES SCORE Total number of steps: 0 DRESSING - LOWER BODY - SCORE: 0-UNK TOILETING: Activity did not occur on this shift TOILETING - SCORE: 0-UNK BLADDER MANAGEMENT: [place] removes incontinent device (Depends, pull ups, etc.); cleans the patient after accident / inco ntinent episode; and, applies new incontinent device. BLADDER MANAGEMENT - SCORE: 1-DEP BOWEL MANAGEMENT: Activity did not occur on this shift BOWEL MANAGEMENT - SCORE: 7-IND TRANSFERS: BED, CHAIR, WHEELCHAIR: Activity did not occur on this shift TRANSFERS: BED, CHAIR, WHEELCHAIR - SCORE: 0-UNK TRANSFERS: TOILET: Activity did not occur on this shift TRANSFERS: TOILET - SCORE: 0-UNK TRANSFERS: SHOWER: Activity did not occur on this shift TRANSFERS: SHOWER - SCORE: 0-UNK TRANSFERS: TUB: Activity did not occur on this shift TRANSFERS: TUB - SCORE: 0-UNK LOCOMOTION: WALK: Activity did not occur on this shift LOCOMOTION: WALK - SCORE: 0-UNK LOCOMOTION: WHEELCHAIR: Activity did not occur on this shift LOCOMOTION: WHEELCHAIR - SCORE: 0-UNK COMPREHENSION: COMPREHENSION: TYPE: Both COMPREHENSION - STEP 1: Does the patient require help from a person or device, or need extra time to understand complex and a bstract ideas (such as current events, finances, discharge planning, medical issues, relationships, e tc)? No. COMPREHENSION - STEP 2: Does the patient need extra time, require an assistive device (such as glasses for visual comprehensi on or a hearing aid for auditory comprehension) or does s/he have mild difficulty understanding compl ex and abstract information? Yes. COMPREHENSION - SCORE: 6-ROBBY EXPRESSION EXPRESSION: TYPE: Both EXPRESSION - STEP 1: Does the patient require help from a person or device, or need extra time expressing complex and abst ract ideas (such as current events, finances, discharge planning, medical issues, relationships, etc) ? No. EXPRESSION - STEP 2: Does the patient need extra time, require an assistive device (such as augmentive communication syste m or a communication board), OR does s/he have mild difficulty expressing complex and abstract ideas (including mild dysarthria or mild word-find problems)? No. EXPRESSION - SCORE: 7-IND SOCIAL INTERACTION: SOCIAL INTERACTION - STEP 1: Does the patient require a helper to interact with others in social and therapeutic situations? No. SOCIAL INTERACTION - STEP 2: Does the patient need extra time in social situations, OR does s/he interact with staff, other patien ts, and family members ONLY in structured environments, OR does s/he require medication for social in teraction? Yes, patient requires medication for social interaction SOCIAL INTERACTION - SCORE: 6-ROBBY PROBLEM SOLVING: PROBLEM SOLVING - STEP 1: Does the patient need help from a person or device, or need extra time to solve complex problems such as managing a checking account or confronting interpersonal problems? No. PROBLEM SOLVING - STEP 2: Does the patient require extra time to make decisions or solve problems, OR does s/he have slight dif ficulty reading, initiating, or self-correcting in unfamiliar situations? No. PROBLEM SOLVING - SCORE: 7-IND MEMORY: MEMORY - STEP 1: Does the patient need help from a person or device, or need extra time to remember frequently encount ered people, daily routines, and executing requests? No. MEMORY - STEP 2: Does the patient have slight difficulty recognizing frequently encountered people, daily routines, or executing requests without the need for repetition or using self-initiated or environmental cues to remember? No. MEMORY - SCORE: 7-IND SIGNATURE PANEL: The following modified sections: Eating - Score, Grooming - Score, Bathing - Score, Dressing - Upper Body - Score, Dressing - Lower Body - Score, Toileting - Score, Bladder Management - Score, Bowel Man agement - Score, Transfers: Bed, Chair, Wheelchair - Score, Transfers: Toilet - Score, Transfers: Kayla wer - Score, Transfers: Tub - Score, Locomotion: Walk - Score, Locomotion: Wheelchair - Score, Compre hension - Score, Expression - Score, Social Interaction - Score, Problem Solving - Score, Memory - Sc ore were [electronically] signed by Milly Arteaga CNA on MonSep 21 2018 02:01:00 GMT-0600 ([facility])
[2018-09-21] MEDS: HYDROCODONE/APAP 5/325 MG TAB PO PRN ×2 (08:01→12:17)
[2018-09-21] MEDS: AMLODIPINE 5 MG TAB PO SCH (08:03)
[2018-09-21] MEDS: RAMIPRIL 5 MG CAP PO SCH ×2 (08:03→19:11)
[2018-09-21] MEDS: ESCITALOPRAM 20 MG TAB PO SCH (08:04)
[2018-09-21] MEDS: MAGNESIUM OXIDE 400 MG TAB PO SCH ×2 (08:04→19:11)
[2018-09-21] MEDS: BACLOFEN 10 MG TAB PO SCH ×3 (08:04→20:37)
[2018-09-21] MEDS: AMOX/K CLAV 875 MG TAB PO SCH ×2 (08:06→19:12)
[2018-09-21] MEDS: PROMOD 30 ML DOSE PO SCH ×3 (08:06→19:18)
--- NOTE | 2018-09-21 09:28 | P.RH.PN ---
Estimated Length of Stay: 16 Expected Discharge Date: 09/25/18 Discharge Disposition Plan: Home Family Support: Yes Residential Goal: Mobility, Transfers, Self Care Vital Signs: Last Vital Signs Temp 97.4 F 09/21/18 06:19 Pulse 70 09/21/18 08:03 Resp 18 09/21/18 06:19 BP 128/73 09/21/18 08:03 Pulse Ox 96 09/21/18 06:19 Laboratory: Laboratory Last Values WBC 5.9 K/uL (4.3-10.9) 09/20/18 06:00 RBC 3.56 M/uL (4.33-5.43) L 09/20/18 06:00 Hgb 10.7 g/dL (13.6-17.9) L 09/20/18 06:00 Hct 31.2 % (39.6-49.0) L 09/20/18 06:00 MCV 87.8 fL (80-100) 09/20/18 06:00 MCH 30.1 pg (27.0-35.0) 09/20/18 06:00 MCHC 34.3 g/dL (32.0-36.0) 09/20/18 06:00 RDW 14.6 % (12.1-15.2) 09/20/18 06:00 Plt Count 394 K/uL (152-406) D 09/20/18 06:00 MPV 7.3 fL (7.6-11.3) L 09/20/18 06:00 Neutrophils % 70.7 % (41.7-73.7) 09/20/18 06:00 Lymphocytes % 20.0 % (15.3-44.8) 09/20/18 06:00 Monocytes % 6.7 % (3.3-12.3) 09/20/18 06:00 Eosinophils % 2.0 % (0-4.4) 09/20/18 06:00 Basophils % 0.6 % (0-1.3) 09/20/18 06:00 Absolute Neutrophils 4.2 K/uL (1.8-8.0) 09/20/18 06:00 Absolute Lymphocytes 1.2 K/uL (0.7-4.9) 09/20/18 06:00 Absolute Monocytes 0.4 K/uL (0.1-1.3) 09/20/18 06:00 Absolute Eosinophils 0.1 K/uL (0-0.5) 09/20/18 06:00 Absolute Basophils 0.0 K/uL (0-0.5) 09/20/18 06:00 Sodium 140 mmol/L (136-145) 09/20/18 06:00 Potassium 3.9 mmol/L (3.5-5.1) 09/20/18 06:00 Chloride 106 mmol/L (98-107) 09/20/18 06:00 Carbon Dioxide 28 mmol/L (21-32) 09/20/18 06:00 BUN 18 mg/dL (7-18) 09/20/18 06:00 Creatinine 0.88 mg/dL (0.55-1.3) 09/20/18 06:00 Estimated GFR 86 mL/min (=/>90) L 09/20/18 06:00 Glucose 92 mg/dL (74-106) 09/20/18 06:00 POC Glucose 124 mg/dl (65-120) H 09/16/18 11:13 Calcium 8.6 mg/dL (8.5-10.1) 09/20/18 06:00 Magnesium 2.4 mg/dL (1.8-2.4) 09/11/18 06:23 Albumin 3.1 g/dL (3.4-5.0) L 09/20/18 06:00 Prealbumin 23.0 mg/dL (20-40) 09/20/18 06:00 Urine Color Yellow 09/10/18 19:24 Urine Appearance Clear 09/10/18 19:24 Urine pH 8.0 (5.0-7.0) H 09/10/18 19:24 Ur Specific [place] 1.015 (1.005-1.030) 09/10/18 19:24 Urine Ketones Negative (NEG) 09/10/18 19:24 Urine Blood Negative (NEG) 09/10/18 19:24 Urine Nitrite Negative (NEG) 09/10/18 19:24 Urine Bilirubin Negative (NEG) 09/10/18 19:24 Urine Urobilinogen 1.0 mg/dL (0.2-1.0) 09/10/18 19:24 Ur Leukocyte Esterase Negative (NEG) 09/10/18 19:24 Urine RBC <5 /HPF (NONE SEEN) 09/10/18 19:24 Urine WBC <5 /HPF (<5) 09/10/18 19:24 Ur Squamous Epith Cells <5 /HPF (NONE SEEN) 09/10/18 19:24 Urine Bacteria None seen /HPF (NONE SEEN) 09/10/18 19:24 Urine Culture Reflexed Not needed 09/10/18 19:24 Urine Glucose Negative (NEG) 09/10/18 19:24 Urine Total Protein Negative (NEG) 09/10/18 19:24 Miscellaneous Test Cancelled 09/18/18 09:31 Weight: 181 lb 11.2 oz Wound Present: No Closed Surgical Incision Present: Yes Negative Pressure Wound Therapy Present: No Physician Update: His labs have been reviewed and are stable. Medications have bee renewed. His mood is better. He is making slow but steady progress with physical and occupational therapy. He is doing well with speech therapy. He may benifit more with another week of inpatient therapy. He will likely go home with home health to continue physical, occupational and speech therapy. Medical Issues: Zosyn 3.375gm Q8H IVPB Pain Issues: Lidoderm patch 5% Daily. Tramadol 50mg Q4H PRN. [place] 5/325mg Q4H PRN Functional Improvement: pt has demonstrated progress with functional mobility and stability during ambulation. pt continues to require functional training with transfers as well as family training. Speech Therapy Update: Patient is making significant progress on his long and short term goals. However, progress is somewhat limited by patient c/o vertigo , diplopia, and pain. Patient is at MOD I with auditory comprehension, social interaction, problem solving, and memory and MIN A with verbal expression for correct and consistent use of compensatory strategies. Patient has demonstrated improved respiratory control with consistent use of incentive spirometer and other respiratory control exercises. Patient performs laryngeal elevation and pharyngeal strengthening exercises with MOD A. Summary: Patient's care plan and chcf goals have been reviewed and revised as necessary. Please see the Rehabilitation Signature page for all necessary signatures.
[2018-09-21] MEDS: LIDOCAINE 5% PATCH TOP SCH (14:06)
--- NOTE | 2018-09-21 15:51 | FAST ---
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 Daniel Mane M.D. ADMISSION DIAGNOSIS: - Orthopaedic Disorders 08 - Unilateral Hip Fracture (08.11) RIGHT FEMORAL NECK FRACTURE. EATING: Activity did not occur on this shift EATING - SCORE: 0-UNK GROOMING: Activity did not occur on this shift GROOMING - SCORE: 0-UNK BATHING: Activity did not occur on this shift BATHING - SCORE: 0-UNK DRESSING - UPPER BODY: Activity did not occur on this shift Patient is not dressing in public clothing ARTICLES SCORE Total number of steps: 0 DRESSING - UPPER BODY - SCORE: 0-UNK DRESSING - LOWER BODY: Activity did not occur on this shift Patient is not dressing in public clothing ARTICLES SCORE Total number of steps: 0 DRESSING - LOWER BODY - SCORE: 0-UNK TOILETING: Activity did not occur on this shift TOILETING - SCORE: 0-UNK BLADDER MANAGEMENT: Activity did not occur on this shift BLADDER MANAGEMENT - SCORE: 7-IND BOWEL MANAGEMENT: Activity did not occur on this shift BOWEL MANAGEMENT - SCORE: 7-IND TRANSFERS: BED, CHAIR, WHEELCHAIR: TRANSFERS: BED, CHAIR, WHEELCHAIR - STEP 1: Does the patient require assistance of a person or device, or need extra time with bed, chair, or whe elchair transfers? Yes. TRANSFERS: BED, CHAIR, WHEELCHAIR - STEP 2: Does the patient require the assistance of a helper? Yes. TRANSFERS: BED, CHAIR, WHEELCHAIR - STEP 3: How much assistance does the patient require from the helper? Lifting of the legs TRANSFERS: BED, CHAIR, WHEELCHAIR - STEP 4: How many legs does the patient require the helper to lift? both legs TRANSFERS: BED, CHAIR, WHEELCHAIR - SCORE: 3-MOD TRANSFERS: TOILET: Activity did not occur on this shift TRANSFERS: TOILET - SCORE: 0-UNK TRANSFERS: SHOWER: Activity did not occur on this shift TRANSFERS: SHOWER - SCORE: 0-UNK TRANSFERS: TUB: Activity did not occur on this shift TRANSFERS: TUB - SCORE: 0-UNK LOCOMOTION: WALK: LOCOMOTION: WALK - STEP 1: Does the patient need help from a person or device, or need extra time to walk 150 feet? Yes. LOCOMOTION: WALK - STEP 2: How much assistance does the patient require to walk a minimum of 150 feet? Patient walks less than 1 50 feet - but more than 50 feet - with the assistance of only one helper LOCOMOTION: WALK - SCORE: 2-MAX LOCOMOTION: WHEELCHAIR: LOCOMOTION: WHEELCHAIR - STEP 1: Does the patient need help to go 150 feet in a wheelchair? No. LOCOMOTION: WHEELCHAIR - SCORE: 6-ROBBY LOCOMOTION: STAIRS: Activity did not occur on this shift LOCOMOTION: STAIRS - SCORE: 0-UNK COMPREHENSION: COMPREHENSION - SCORE: 0-UNK EXPRESSION EXPRESSION - SCORE: 0-UNK SOCIAL INTERACTION: SOCIAL INTERACTION - SCORE: 0-UNK PROBLEM SOLVING: PROBLEM SOLVING - SCORE: 0-UNK MEMORY: MEMORY - SCORE: 0-UNK SIGNATURE PANEL: The following modified sections: Transfers: Bed, Chair, Wheelchair - Score, Transfers: Toilet - Score , Locomotion: Walk - Score, Locomotion: Wheelchair - Score, Locomotion: Stairs - Score were [electron gerard] signed by Rashi Griffith PTA on MonSep 21 2018 15:51:26 GMT-0600 (Central Standard Time)
--- NOTE | 2018-09-21 15:52 | FAST ---
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 Daniel Mane M.D. ADMISSION DIAGNOSIS: - Orthopaedic Disorders 08 - Unilateral Hip Fracture (08.11) RIGHT FEMORAL NECK FRACTURE. EATING: Activity did not occur on this shift EATING - SCORE: 0-UNK GROOMING: Activity did not occur on this shift GROOMING - SCORE: 0-UNK BATHING: Activity did not occur on this shift BATHING - SCORE: 0-UNK DRESSING - UPPER BODY: Activity did not occur on this shift Patient is not dressing in public clothing ARTICLES SCORE Total number of steps: 0 DRESSING - UPPER BODY - SCORE: 0-UNK DRESSING - LOWER BODY: Activity did not occur on this shift Patient is not dressing in public clothing ARTICLES SCORE Total number of steps: 0 DRESSING - LOWER BODY - SCORE: 0-UNK TOILETING: Activity did not occur on this shift TOILETING - SCORE: 0-UNK BLADDER MANAGEMENT: Activity did not occur on this shift BLADDER MANAGEMENT - SCORE: 7-IND BOWEL MANAGEMENT: Activity did not occur on this shift BOWEL MANAGEMENT - SCORE: 7-IND TRANSFERS: BED, CHAIR, WHEELCHAIR: TRANSFERS: BED, CHAIR, WHEELCHAIR - STEP 1: Does the patient require assistance of a person or device, or need extra time with bed, chair, or whe elchair transfers? Yes. TRANSFERS: BED, CHAIR, WHEELCHAIR - STEP 2: Does the patient require the assistance of a helper? Yes. TRANSFERS: BED, CHAIR, WHEELCHAIR - STEP 3: How much assistance does the patient require from the helper? Lifting of the legs TRANSFERS: BED, CHAIR, WHEELCHAIR - STEP 4: How many legs does the patient require the helper to lift? both legs TRANSFERS: BED, CHAIR, WHEELCHAIR - SCORE: 3-MOD TRANSFERS: TOILET: Activity did not occur on this shift TRANSFERS: TOILET - SCORE: 0-UNK TRANSFERS: SHOWER: Activity did not occur on this shift TRANSFERS: SHOWER - SCORE: 0-UNK TRANSFERS: TUB: Activity did not occur on this shift TRANSFERS: TUB - SCORE: 0-UNK LOCOMOTION: WALK: LOCOMOTION: WALK - STEP 1: Does the patient need help from a person or device, or need extra time to walk 150 feet? Yes. LOCOMOTION: WALK - STEP 2: How much assistance does the patient require to walk a minimum of 150 feet? Patient walks less than 1 50 feet - but more than 50 feet - with the assistance of only one helper LOCOMOTION: WALK - SCORE: 2-MAX LOCOMOTION: WHEELCHAIR: LOCOMOTION: WHEELCHAIR - STEP 1: Does the patient need help to go 150 feet in a wheelchair? No. LOCOMOTION: WHEELCHAIR - SCORE: 6-ROBBY LOCOMOTION: STAIRS: Activity did not occur on this shift LOCOMOTION: STAIRS - SCORE: 0-UNK COMPREHENSION: COMPREHENSION - SCORE: 0-UNK EXPRESSION EXPRESSION - SCORE: 0-UNK SOCIAL INTERACTION: SOCIAL INTERACTION - SCORE: 0-UNK PROBLEM SOLVING: PROBLEM SOLVING - SCORE: 0-UNK MEMORY: MEMORY - SCORE: 0-UNK SIGNATURE PANEL: The following modified sections: Transfers: Bed, Chair, Wheelchair - Score, Transfers: Toilet - Score , Locomotion: Walk - Score, Locomotion: Wheelchair - Score, Locomotion: Stairs - Score were [electron gerard] signed by Rashi Griffith PTA on MonSep 21 2018 15:52:35 GMT-0600 (Central Standard Time)
--- NOTE | 2018-09-21 15:55 | FAST ---
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 Daniel Mane M.D. ADMISSION DIAGNOSIS: - Orthopaedic Disorders 08 - Unilateral Hip Fracture (08.11) RIGHT FEMORAL NECK FRACTURE. EATING: Activity did not occur on this shift EATING - SCORE: 0-UNK GROOMING: Activity did not occur on this shift GROOMING - SCORE: 0-UNK BATHING: Activity did not occur on this shift BATHING - SCORE: 0-UNK DRESSING - UPPER BODY: Activity did not occur on this shift Patient is not dressing in public clothing ARTICLES SCORE Total number of steps: 0 DRESSING - UPPER BODY - SCORE: 0-UNK DRESSING - LOWER BODY: Activity did not occur on this shift Patient is not dressing in public clothing ARTICLES SCORE Total number of steps: 0 DRESSING - LOWER BODY - SCORE: 0-UNK TOILETING: Activity did not occur on this shift TOILETING - SCORE: 0-UNK BLADDER MANAGEMENT: Activity did not occur on this shift BLADDER MANAGEMENT - SCORE: 7-IND BOWEL MANAGEMENT: Activity did not occur on this shift BOWEL MANAGEMENT - SCORE: 7-IND TRANSFERS: BED, CHAIR, WHEELCHAIR: TRANSFERS: BED, CHAIR, WHEELCHAIR - STEP 1: Does the patient require assistance of a person or device, or need extra time with bed, chair, or whe elchair transfers? Yes. TRANSFERS: BED, CHAIR, WHEELCHAIR - STEP 2: Does the patient require the assistance of a helper? Yes. TRANSFERS: BED, CHAIR, WHEELCHAIR - STEP 3: How much assistance does the patient require from the helper? Lifting of the legs TRANSFERS: BED, CHAIR, WHEELCHAIR - STEP 4: How many legs does the patient require the helper to lift? both legs TRANSFERS: BED, CHAIR, WHEELCHAIR - SCORE: 3-MOD TRANSFERS: TOILET: Activity did not occur on this shift TRANSFERS: TOILET - SCORE: 0-UNK TRANSFERS: SHOWER: Activity did not occur on this shift TRANSFERS: SHOWER - SCORE: 0-UNK TRANSFERS: TUB: Activity did not occur on this shift TRANSFERS: TUB - SCORE: 0-UNK LOCOMOTION: WALK: LOCOMOTION: WALK - STEP 1: Does the patient need help from a person or device, or need extra time to walk 150 feet? Yes. LOCOMOTION: WALK - STEP 2: How much assistance does the patient require to walk a minimum of 150 feet? Patient walks less than 1 50 feet - but more than 50 feet - with the assistance of only one helper LOCOMOTION: WALK - SCORE: 2-MAX LOCOMOTION: WHEELCHAIR: LOCOMOTION: WHEELCHAIR - STEP 1: Does the patient need help to go 150 feet in a wheelchair? No. LOCOMOTION: WHEELCHAIR - SCORE: 6-ROBBY LOCOMOTION: STAIRS: Activity did not occur on this shift LOCOMOTION: STAIRS - SCORE: 0-UNK COMPREHENSION: COMPREHENSION - SCORE: 0-UNK EXPRESSION EXPRESSION - SCORE: 0-UNK SOCIAL INTERACTION: SOCIAL INTERACTION - SCORE: 0-UNK PROBLEM SOLVING: PROBLEM SOLVING - SCORE: 0-UNK MEMORY: MEMORY - SCORE: 0-UNK SIGNATURE PANEL: The following modified sections: Transfers: Bed, Chair, Wheelchair - Score, Transfers: Toilet - Score , Locomotion: Walk - Score, Locomotion: Wheelchair - Score, Locomotion: Stairs - Score were [electron gerard] signed by Rashi Griffith PTA on MonSep 21 2018 15:53:58 GMT-0600 (Central Standard Time)
[2018-09-21] MEDS: TRAMADOL HCL 50 MG TAB PO PRN (17:17)
--- NOTE | 2018-09-21 18:09 | FAST ---
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 Daniel Mane M.D. ADMISSION DIAGNOSIS: - Orthopaedic Disorders 08 - Unilateral Hip Fracture (08.11) RIGHT FEMORAL NECK FRACTURE. EATING: Activity did not occur on this shift EATING - SCORE: 0-UNK GROOMING: Wash, rinse, and dry face Wash, rinse, and dry hands GROOMING - STEP 1: Does the patient require the assistance of a person or device, or need extra time when grooming? No. GROOMING - SCORE: 7-IND BATHING: Abdomen Buttocks Chest Left arm Left lower leg and foot Left upper leg Perineal area Right arm Right lower leg and foot Right upper leg BATHING - STEP 1: Does the patient require the assistance of a person or device, or need extra time when bathing? Yes. BATHING - STEP 2: Does the patient require the assistance of a helper? Yes. BATHING - STEP 3: How much assistance does the patient require from the helper? Only incidental help such as placement of a wash cloth in his/her hand a few times as s/he bathes OR help to bathe just one or two areas of the body BATHING - SCORE: 4-MIN DRESSING - UPPER BODY: T-shirt/pullover shirt (four steps) ARTICLES SCORE Total number of steps: 4 DRESSING - UPPER BODY - STEP 1: Does the patient require help from a person or device, or need extra time when dressing above the meek st? Yes. DRESSING - UPPER BODY - STEP 2: Does the patient require the assistance of a helper? Yes. DRESSING - UPPER BODY - STEP 3: Does the helper touch the patient while dressing? No. DRESSING - UPPER BODY - SCORE: 5-SUP DRESSING - LOWER BODY: Elastic waist pants (three steps) Sock - Left foot (one step) Sock - Right foot (one step) Tied or buckled shoe - Left foot (two steps) Tied or buckled shoe - Right foot (two steps) Underwear (three steps) ARTICLES SCORE Total number of steps: 12 DRESSING - LOWER BODY - STEP 1: Does the patient require help from a person or device, or need extra time when dressing below the meek st? Yes. DRESSING - LOWER BODY - STEP 2: Does the patient require the assistance of a helper? Yes. DRESSING - LOWER BODY - STEP 3: Does the helper touch the patient while dressing? Yes. DRESSING - LOWER BODY - STEP 4: How many of the total steps does the patient complete on his/her own? 10 DRESSING - LOWER BODY - SCORE: 4-MIN TOILETING: Activity did not occur on this shift TOILETING - SCORE: 0-UNK BLADDER MANAGEMENT: Activity did not occur on this shift BLADDER MANAGEMENT - SCORE: 7-IND BOWEL MANAGEMENT: Activity did not occur on this shift BOWEL MANAGEMENT - SCORE: 7-IND TRANSFERS: BED, CHAIR, WHEELCHAIR: Activity did not occur on this shift TRANSFERS: BED, CHAIR, WHEELCHAIR - SCORE: 0-UNK TRANSFERS: TOILET: Activity did not occur on this shift TRANSFERS: TOILET - SCORE: 0-UNK TRANSFERS: SHOWER: TRANSFERS: SHOWER - STEP 1: Does the patient require the assistance of a person or device, or need extra time with shower transfe rs? Yes. TRANSFERS: SHOWER - STEP 2: Does the patient require the assistance of a helper? Yes. TRANSFERS: SHOWER - STEP 3: How much assistance does the patient require from the helper? More than incidental help TRANSFERS: SHOWER - STEP 4: How much more help does the patient require from the helper? Lifting the patient either up OR down fr om the wheelchair onto the shower chair TRANSFERS: SHOWER - SCORE: 3-MOD TRANSFERS: TUB: Activity did not occur on this shift TRANSFERS: TUB - SCORE: 0-UNK LOCOMOTION: WALK: Activity did not occur on this shift LOCOMOTION: WALK - SCORE: 0-UNK LOCOMOTION: WHEELCHAIR: Activity did not occur on this shift LOCOMOTION: WHEELCHAIR - SCORE: 0-UNK LOCOMOTION: STAIRS: Activity did not occur on this shift LOCOMOTION: STAIRS - SCORE: 0-UNK COMPREHENSION: COMPREHENSION: TYPE: Both COMPREHENSION - STEP 1: Does the patient require help from a person or device, or need extra time to understand complex and a bstract ideas (such as current events, finances, discharge planning, medical issues, relationships, e tc)? No. COMPREHENSION - STEP 2: Does the patient need extra time, require an assistive device (such as glasses for visual comprehensi on or a hearing aid for auditory comprehension) or does s/he have mild difficulty understanding compl ex and abstract information? Yes. COMPREHENSION - SCORE: 6-ROBBY EXPRESSION EXPRESSION: TYPE: Both EXPRESSION - STEP 1: Does the patient require help from a person or device, or need extra time expressing complex and abst ract ideas (such as current events, finances, discharge planning, medical issues, relationships, etc) ? No. EXPRESSION - STEP 2: Does the patient need extra time, require an assistive device (such as augmentive communication syste m or a communication board), OR does s/he have mild difficulty expressing complex and abstract ideas (including mild dysarthria or mild word-find problems)? Yes. EXPRESSION - SCORE: 6-ROBBY SOCIAL INTERACTION: SOCIAL INTERACTION - STEP 1: Does the patient require a helper to interact with others in social and therapeutic situations? No. SOCIAL INTERACTION - STEP 2: Does the patient need extra time in social situations, OR does s/he interact with staff, other patien ts, and family members ONLY in structured environments, OR does s/he require medication for social in teraction? Yes, patient requires medication for social interaction SOCIAL INTERACTION - SCORE: 6-ROBBY PROBLEM SOLVING: PROBLEM SOLVING - STEP 1: Does the patient need help from a person or device, or need extra time to solve complex problems such as managing a checking account or confronting interpersonal problems? Yes. PROBLEM SOLVING - STEP 2: Does the patient solve basic routine problems half or more of the time? Yes. PROBLEM SOLVING - STEP 3: How often does the patient need help to solve basic routine problems? Less than 10% of the time PROBLEM SOLVING - SCORE: 5-SUP MEMORY: MEMORY - STEP 1: Does the patient need help from a person or device, or need extra time to remember frequently encount ered people, daily routines, and executing requests? Yes. MEMORY - STEP 2: How often does the patient need help to remember frequently encountered people, daily routines, and e xecuting requests? Less than 10% of the time MEMORY - SCORE: 5-SUP SIGNATURE PANEL: The following modified sections: Eating - Score, Grooming - Score, Bathing - Score, Dressing - Upper Body - Score, Dressing - Lower Body - Score, Toileting - Score, Transfers: Bed, Chair, Wheelchair - S core, Transfers: Toilet - Score, Transfers: Tub - Score, Transfers: Shower - Score, Comprehension - S core, Expression - Score, Social Interaction - Score, Problem Solving - Score, Memory - Score were [e lectronically] signed by Melissa Shelton OT on MonSep 21 2018 18:09:04 [facility]-0600 ([facility] T madeleine)
[2018-09-21] MEDS: ARIPiprazole 5 MG TAB PO SCH (19:11)
[2018-09-21] MEDS: DOCUSATE NA/SENNA CONC 1 TAB PO SCH (20:37)
[2018-09-22 03:14] LABS: Immunoglobulin G 961 mg/dL (694-1618); Immunoglobulin M 53 mg/dL (48-271)
[2018-09-22 06:48] LABS: Albumin, (SPE) 3.6 g/dL (3.8-4.8); Alpha-1-Globulins 0.5 g/dL (0.2-0.3); Gamma Globulins 0.9 g/dL (0.8-1.7); INTERPRETATION REPORT
[2018-09-22] MEDS: PROMOD 30 ML DOSE PO SCH ×2 (08:00→20:44)
[2018-09-22] MEDS: LIDOCAINE 5% PATCH TOP SCH (08:09)
[2018-09-22] MEDS: ENOXAPARIN 40 MG/0.4 ML SQ SCH (08:09)
[2018-09-22] MEDS: RAMIPRIL 5 MG CAP PO SCH ×2 (08:10→20:39)
[2018-09-22] MEDS: AMLODIPINE 5 MG TAB PO SCH (08:11)
[2018-09-22] MEDS: AMOX/K CLAV 875 MG TAB PO SCH ×2 (08:11→20:38)
[2018-09-22] MEDS: BACLOFEN 10 MG TAB PO SCH ×3 (08:12→20:39)
[2018-09-22] MEDS: MAGNESIUM OXIDE 400 MG TAB PO SCH ×2 (08:12→20:39)
[2018-09-22] MEDS: ESCITALOPRAM 20 MG TAB PO SCH (08:12)
[2018-09-22] MEDS: TRAMADOL HCL 50 MG TAB PO PRN ×2 (09:57→20:43)
--- NOTE | 2018-09-22 11:27 | FAST ---
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 Daniel Mane M.D. ADMISSION DIAGNOSIS: - Orthopaedic Disorders 08 - Unilateral Hip Fracture (08.11) RIGHT FEMORAL NECK FRACTURE. EATING: Activity did not occur on this shift EATING - SCORE: 0-UNK GROOMING: Activity did not occur on this shift GROOMING - SCORE: 0-UNK BATHING: Activity did not occur on this shift BATHING - SCORE: 0-UNK DRESSING - UPPER BODY: Patient is not dressing in public clothing ARTICLES SCORE Total number of steps: 0 DRESSING - UPPER BODY - SCORE: 0-UNK DRESSING - LOWER BODY: Patient is not dressing in public clothing ARTICLES SCORE Total number of steps: 0 DRESSING - LOWER BODY - SCORE: 0-UNK TOILETING: Activity did not occur on this shift TOILETING - SCORE: 0-UNK BLADDER MANAGEMENT: [place] removes incontinent device (Depends, pull ups, etc.); cleans the patient after accident / inco ntinent episode; and, applies new incontinent device. BLADDER MANAGEMENT - SCORE: 1-DEP BOWEL MANAGEMENT: Activity did not occur on this shift BOWEL MANAGEMENT - SCORE: 7-IND TRANSFERS: BED, CHAIR, WHEELCHAIR: Activity did not occur on this shift TRANSFERS: BED, CHAIR, WHEELCHAIR - SCORE: 0-UNK TRANSFERS: TOILET: Activity did not occur on this shift TRANSFERS: TOILET - SCORE: 0-UNK TRANSFERS: SHOWER: Activity did not occur on this shift TRANSFERS: SHOWER - SCORE: 0-UNK TRANSFERS: TUB: Activity did not occur on this shift TRANSFERS: TUB - SCORE: 0-UNK LOCOMOTION: WALK: Activity did not occur on this shift LOCOMOTION: WALK - SCORE: 0-UNK LOCOMOTION: WHEELCHAIR: Activity did not occur on this shift LOCOMOTION: WHEELCHAIR - SCORE: 0-UNK COMPREHENSION: COMPREHENSION: TYPE: Both COMPREHENSION - STEP 1: Does the patient require help from a person or device, or need extra time to understand complex and a bstract ideas (such as current events, finances, discharge planning, medical issues, relationships, e tc)? Yes. COMPREHENSION - STEP 2: Does the patient require help to understand questions or statements about basic needs or ideas (such as hunger, thirst, sleep, safety, daily schedule, room location, or discomfort) half or more of the t madeleine? No. COMPREHENSION - STEP 3: How often does the patient need help to understand directions and conversation about basic needs? Les s than 10% of the time COMPREHENSION - SCORE: 5-SUP EXPRESSION EXPRESSION: TYPE: Both EXPRESSION - STEP 1: Does the patient require help from a person or device, or need extra time expressing complex and abst ract ideas (such as current events, finances, discharge planning, medical issues, relationships, etc) ? No. EXPRESSION - STEP 2: Does the patient need extra time, require an assistive device (such as augmentive communication syste m or a communication board), OR does s/he have mild difficulty expressing complex and abstract ideas (including mild dysarthria or mild word-find problems)? Yes. EXPRESSION - SCORE: 6-ROBBY SOCIAL INTERACTION: SOCIAL INTERACTION - STEP 1: Does the patient require a helper to interact with others in social and therapeutic situations? No. SOCIAL INTERACTION - STEP 2: Does the patient need extra time in social situations, OR does s/he interact with staff, other patien ts, and family members ONLY in structured environments, OR does s/he require medication for social in teraction? Yes, patient needs extra time SOCIAL INTERACTION - SCORE: 6-ROBBY PROBLEM SOLVING: PROBLEM SOLVING - STEP 1: Does the patient need help from a person or device, or need extra time to solve complex problems such as managing a checking account or confronting interpersonal problems? Yes. PROBLEM SOLVING - STEP 2: Does the patient solve basic routine problems half or more of the time? Yes. PROBLEM SOLVING - STEP 3: How often does the patient need help to solve basic routine problems? Less than 10% of the time PROBLEM SOLVING - SCORE: 5-SUP MEMORY: MEMORY - STEP 1: Does the patient need help from a person or device, or need extra time to remember frequently encount ered people, daily routines, and executing requests? Yes. MEMORY - STEP 2: How often does the patient need help to remember frequently encountered people, daily routines, and e xecuting requests? Less than 10% of the time MEMORY - SCORE: 5-SUP
--- NOTE | 2018-09-22 14:41 | FAST ---
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 Daniel Mane M.D. ADMISSION DIAGNOSIS: - Orthopaedic Disorders 08 - Unilateral Hip Fracture (08.11) RIGHT FEMORAL NECK FRACTURE. EATING: EATING - STEP 1: Does the patient require the assistance of a person or device, or need extra time when eating? Yes. EATING - STEP 2: Does the patient require the assistance of a helper? Yes. EATING - STEP 3: Does the patient perform half or more of the eating tasks? Yes. EATING - STEP 4: Does the patient need only supervision, cuing, coaxing OR help to apply an orthosis OR help to cut fo od, open containers, pour liquids, or butter bread? Yes. EATING - SCORE: 5-SUP GROOMING: Oral care Wash, rinse, and dry face Wash, rinse, and dry hands GROOMING - STEP 1: Does the patient require the assistance of a person or device, or need extra time when grooming? Yes. GROOMING - STEP 2: Does the patient require the assistance of a helper? Yes. GROOMING - STEP 3: How much assistance does the patient require from the helper? Cuing, coaxing, instructions, or encour agement for completion of grooming GROOMING - SCORE: 5-SUP BATHING: Activity did not occur on this shift BATHING - SCORE: 0-UNK DRESSING - UPPER BODY: T-shirt/pullover shirt (four steps) ARTICLES SCORE Total number of steps: 4 DRESSING - UPPER BODY - STEP 1: Does the patient require help from a person or device, or need extra time when dressing above the meek st? Yes. DRESSING - UPPER BODY - STEP 2: Does the patient require the assistance of a helper? Yes. DRESSING - UPPER BODY - STEP 3: Does the helper touch the patient while dressing? Yes. DRESSING - UPPER BODY - STEP 4: How many of the total steps does the patient complete on his/her own? 2 DRESSING - UPPER BODY - SCORE: 3-MOD DRESSING - LOWER BODY: Elastic waist pants (three steps) Sock - Left foot (one step) Sock - Right foot (one step) Tied or buckled shoe - Left foot (two steps) Tied or buckled shoe - Right foot (two steps) Underwear (three steps) ARTICLES SCORE Total number of steps: 12 DRESSING - LOWER BODY - STEP 1: Does the patient require help from a person or device, or need extra time when dressing below the meek st? Yes. DRESSING - LOWER BODY - STEP 2: Does the patient require the assistance of a helper? Yes. DRESSING - LOWER BODY - STEP 3: Does the helper touch the patient while dressing? Yes. DRESSING - LOWER BODY - STEP 4: How many of the total steps does the patient complete on his/her own? 2 DRESSING - LOWER BODY - STEP 5: Does patient require total assistance for dressing below the waist such as the helper holding clothin g and performing basically all the activities? Yes. DRESSING - LOWER BODY - SCORE: 1-DEP TOILETING: TOILETING - STEP 1: Does the patient require the assistance of a person or device, or need extra time with toileting? Yes . TOILETING - STEP 2: Does the patient require the assistance of a helper? Yes. TOILETING - STEP 3: How much assistance does the patient require from the helper? Hands-on assistance from the helper TOILETING - STEP 4: Of the 3 tasks: 1) Adjusting clothing prior to use, 2) Cleansing of perineal area, 3) Adjusting clot stephenie after use; How many tasks does the patient perform WITHOUT assistance of the helper? No tasks; h elper performs all three tasks TOILETING - SCORE: 1-DEP BLADDER MANAGEMENT: [place] removes incontinent device (Depends, pull ups, etc.); cleans the patient after accident / inco ntinent episode; and, applies new incontinent device. BLADDER MANAGEMENT - SCORE: 1-DEP BLADDER MANAGEMENT - FREQUENCY OF ACCIDENTS: BLADDER MANAGEMENT(FA) - STEP 1: How many accidents has the patient had during the current shift? 3 BOWEL MANAGEMENT: Activity did not occur on this shift BOWEL MANAGEMENT - SCORE: 7-IND BOWEL MANAGEMENT - FREQUENCY OF ACCIDENTS: BOWEL MANAGEMENT(FA) - STEP 1: How many accidents has the patient had during the current shift? 0 TRANSFERS: BED, CHAIR, WHEELCHAIR: TRANSFERS: BED, CHAIR, WHEELCHAIR - STEP 1: Does the patient require assistance of a person or device, or need extra time with bed, chair, or whe elchair transfers? Yes. TRANSFERS: BED, CHAIR, WHEELCHAIR - STEP 2: Does the patient require the assistance of a helper? Yes. TRANSFERS: BED, CHAIR, WHEELCHAIR - STEP 3: How much assistance does the patient require from the helper? Lifting of the patient TRANSFERS: BED, CHAIR, WHEELCHAIR - STEP 4: Does the helper lift the patient ONLY up? ONLY down? Up AND Down? Up AND Down. TRANSFERS: BED, CHAIR, WHEELCHAIR - SCORE: 2-MAX TRANSFERS: TOILET: TRANSFERS: TOILET - STEP 1: Does the patient require the assistance of a person or device, or need extra time with toilet transfe rs? Yes. TRANSFERS: TOILET - STEP 2: Does the patient require the assistance of a helper? Yes. TRANSFERS: TOILET - STEP 3: How much assistance does the patient require from the helper? Patient performs less than half of the transferring tasks TRANSFERS: TOILET - STEP 4: Does the patient require total assistance for the toilet transfer such as the helper doing basically all the lifting? No. TRANSFERS: TOILET - SCORE: 2-MAX TRANSFERS: SHOWER: Activity did not occur on this shift TRANSFERS: SHOWER - SCORE: 0-UNK TRANSFERS: TUB: Activity did not occur on this shift TRANSFERS: TUB - SCORE: 0-UNK LOCOMOTION: WALK: Activity did not occur on this shift LOCOMOTION: WALK - SCORE: 0-UNK LOCOMOTION: WHEELCHAIR: Activity did not occur on this shift LOCOMOTION: WHEELCHAIR - SCORE: 0-UNK COMPREHENSION: COMPREHENSION: TYPE: Both COMPREHENSION - STEP 1: Does the patient require help from a person or device, or need extra time to understand complex and a bstract ideas (such as current events, finances, discharge planning, medical issues, relationships, e tc)? No. COMPREHENSION - STEP 2: Does the patient need extra time, require an assistive device (such as glasses for visual comprehensi on or a hearing aid for auditory comprehension) or does s/he have mild difficulty understanding compl ex and abstract information? Yes. COMPREHENSION - SCORE: 6-ROBBY EXPRESSION EXPRESSION: TYPE: Both EXPRESSION - STEP 1: Does the patient require help from a person or device, or need extra time expressing complex and abst ract ideas (such as current events, finances, discharge planning, medical issues, relationships, etc) ? No. EXPRESSION - STEP 2: Does the patient need extra time, require an assistive device (such as augmentive communication syste m or a communication board), OR does s/he have mild difficulty expressing complex and abstract ideas (including mild dysarthria or mild word-find problems)? Yes. EXPRESSION - SCORE: 6-ROBBY SOCIAL INTERACTION: SOCIAL INTERACTION - STEP 1: Does the patient require a helper to interact with others in social and therapeutic situations? No. SOCIAL INTERACTION - STEP 2: Does the patient need extra time in social situations, OR does s/he interact with staff, other patien ts, and family members ONLY in structured environments, OR does s/he require medication for social in teraction? Yes, patient needs extra time SOCIAL INTERACTION - SCORE: 6-ROBBY PROBLEM SOLVING: PROBLEM SOLVING - STEP 1: Does the patient need help from a person or device, or need extra time to solve complex problems such as managing a checking account or confronting interpersonal problems? Yes. PROBLEM SOLVING - STEP 2: Does the patient solve basic routine problems half or more of the time? Yes. PROBLEM SOLVING - STEP 3: How often does the patient need help to solve basic routine problems? Less than 10% of the time PROBLEM SOLVING - SCORE: 5-SUP MEMORY: MEMORY - STEP 1: Does the patient need help from a person or device, or need extra time to remember frequently encount ered people, daily routines, and executing requests? No. MEMORY - STEP 2: Does the patient have slight difficulty recognizing frequently encountered people, daily routines, or executing requests without the need for repetition or using self-initiated or environmental cues to remember? Yes. MEMORY - SCORE: 6-ROBBY SIGNATURE PANEL: The following modified sections: Eating - Score, Grooming - Score, Bathing - Score, Dressing - Upper Body - Score, Dressing - Lower Body - Score, Toileting - Score, Bladder Management - Score, Bowel Man agement - Score, Transfers: Bed, Chair, Wheelchair - Score, Transfers: Toilet - Score, Transfers: Kayla wer - Score, Transfers: Tub - Score, Locomotion: Walk - Score, Locomotion: Wheelchair - Score, Compre hension - Score, Expression - Score, Social Interaction - Score, Problem Solving - Score, Memory - Sc ore were [electronically] signed by Dasha Wei C.N.A. on Sat Sep 22 2018 14:41:01 GMT-0600 ([facility] [facility] [place])
--- NOTE | 2018-09-22 17:54 | R.PN ---
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 Pt denied any Shortness of Breath. Mr. 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 His right lower extremity spastic dorsiflexion is not likely due complications following surgery. 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 Pt denied any depression. Hgb 10.7, prealbumin 23.0, glucose 92-124. Ambulated 145' with left hemiwalker. VITAL SIGNS Temperature: 97.0 F SBP/DBP: 152/80 Pulse:80 Resp: 16 MEDICATION ALLERGIES: Sulfa ENVIRONMENTAL ALLERGIES: None Known - Substance Allergies None Known - Other Allergies None Known NURSING: - Shower allowing shower - Skin care per protocol PRECAUTIONS: - Posterior Hip Precaution No adduction across midline No external rotation No hip flexion >90 degrees No internal rotation No wheel chair propulsion - Weight Bearing Precaution WBAT right LE ACTIVITIES OOB only with supervision THERAPIES: - Occupational Therapy Evaluate and Treat. - Physical Therapy Evaluate and Treat. PHYSICAL EXAM - Gen Alert and awake Lying in bed No apparent distress Oriented to: person, time, and place - Skin No breakdown No abnormalities - Eyes No abnormalities - ENMT No abnormalities - Neck No abnormalities - CVS RRR - Chest No abnormalities - Abd + bowel sounds - GI Soft Deferred - No abnormalities - Ext Right hip surgical site has good hemostasis. - MSK 3+/5 weakness in right lower extremity. 1/5 right upper extremity strength. - Neuro 4/5 strength right lower extremity. - Psych No abnormalities ASSESSMENT: Pt. is a 68 yo Right-handed white male.On 09/07/2018 he was admitted to [facility] with diagnosis RIGHT FEMORAL NECK FRACTURE.His impairment category is Orthopaedic Disorders 08 - Unilateral Hip Fracture (08.11).Pre-morbidly, Pt. was independent/mod-I in Sphincter Control, Transf ers Control, Communication, Social Cognition, Self-Care, and Locomotion; and he had good Sphincter Co ntrol.Currently, he has deficits of Endurance, Safety Awareness, Transfers Control, Balance, Self-Car e, and Locomotion.Pt. is now referred to [facility] for acute in-patient rehab ilitation in order to maximize patient's functional independence in activities of daily living, stren gth, ROM, and mobility.- Rehab Goal Patient has realistic goal of being discharged at assistance level 6-Henny to reside at Home with Fam liana/Relatives. MDM/PLAN: - Physical Therapy Decreased range of motion - to improve, our physical therapists will perform initial evaluation of p t's status upon admission and devise an individualized program for increasing patient's Range of William on. Gait dysfunction - to improve, our physical therapists will perform initial evaluation of pt's statu s upon admission and devise an individualized program for Gait Training, and Wheel Chair mobility Inability to transfer - to improve, our physical therapists will perform initial evaluation of pt's status upon admission and devise an individualized program for Bed mobility Need for home safety evaluation - to improve, our physical therapists will perform initial evaluatio n of pt's status upon admission and devise an individualized program for Home Evaluation Need in caregiver upon discharge - to improve, our physical therapists will perform initial evaluati on of pt's status upon admission and devise an individualized program for Caregiver Training New precaution - to improve, our physical therapists will perform initial evaluation of pt's status upon admission and devise an individualized program for Patient precaution education Poor balance - to improve, our physical therapists will perform initial evaluation of pt's status up on admission and devise an individualized program for Balance Training Poor endurance - to improve, our physical therapists will perform initial evaluation of pt's status upon admission and devise an individualized program for Endurance Training Weakness - to improve, our physical therapists will perform initial evaluation of pt's status upon a dmission and devise an individualized program for Aquatic Therapy, Neuromuscular Reeducation, and Str engthening Achieving independence - to improve, our physical therapists will perform initial evaluation of pt's status upon admission and devise an individualized program for Community Reintegration Activities - Occupational Therapy ADL deficits - to improve, our occupation therapists will perform initial evaluation of pt's status upon admission and devise an individualized program for Bathing, Bed mobility, Community Reintegratio n, Cooking, Dressing, Eating, Fine Motor Skills, Grooming, Homemaking, Kitchen Mobility, Laundry, Pat ient Education, Safety Awareness, Splinting - Positioning, Transfers(Toilet, Tub, Shower), and Wheel Chair Management Need for resident caregiver - to improve, our occupation therapists will perform initial evaluation of pt's status upon admission and devise an individualized program for Caregiver Training Weakness - to improve, our occupation therapists will perform initial evaluation of pt's status upon admission and devise an individualized program for Aquatic Therapy, Balance, Endurance, UE ROM, and UE strengthening - Anterior Hip Precaution No abduction No active extension No adduction across midline No external rotation No hip flexion >90 degrees No internal rotation - Diet - Liquid Texture Continue Regular - Tube Feed Continue N/A - Diet Type Continue Heart Healthy - Posterior Hip Precaution No adduction across midline No external rotation No hip flexion >90 degrees No internal rotation No wheel chair propulsion - Weight Bearing Precaution WBAT right LE - Skin care per protocol - Diet - Solid Texture Continue Regular - Shower allowing shower FUNCTIONAL STATUS: UPDATED AT WEEKLY TEAM CONFERENCE - Bladder Same accident frequency: 7-Ind - No accidents in the past 7 days - Bowel Same accident frequency: 7-Ind - No accidents in the past 7 days - Walking Same score based on distance walked: 0(N/A) - Wheelchair Same score based on distance traveled: 0(N/A) FUNCTIONAL STATUS: - Self-Care A. Eating sup B. Grooming sup C. Bathing sup D. Dressing - Upper sup E. Dressing - Lower Ruddy F. Toileting modA - Sphincter Control G: Bladder control Ind H: Bowel control Ind - Transfers Control I. Bed/Chair/Wheelchair modA J. Toilet modA K. Tub/Shower ADNO - Locomotion L. Walk/Wheelchair (C) modA L. Walk/Wheelchair (W) modA M. Stairs ADNO - Communication N. Comprehension (B) Henny O. Expression (B) Henny - Social Cognition P. Social Interaction Henny Q. Problem Solving Henny R. Memory Henny - Endurance Poor - Balance Poor - Safety Awareness Fair CURRENT FUNC. DEFICITS: Endurance, Safety Awareness, Transfers Control, Balance, Self-Care, and Locomotion SIGNATURE PANEL: ([facility])
[2018-09-22] MEDS: ARIPiprazole 5 MG TAB PO SCH (20:38)
[2018-09-22] MEDS: DOCUSATE NA/SENNA CONC 1 TAB PO SCH (20:39)
--- NOTE | 2018-09-23 02:05 | PN ---
Date of Progress Note: 09/22/2018 Subjective: The patient was seen this morning for followup. No new complaints or problems reported, lying in bed, not in distress. Objective: Vital Signs: Reviewed. HEENT: Unremarkable. Lungs: Clear to auscultation. Heart: Sounds normal. Abdomen: Soft, bowel sounds normal. No guarding, rigidity, tenderness, or distention. Extremities: No leg edema. Impression: 1.Hip fracture. 2.Anemia. 3.Hypertension. 4.Stroke with right-sided hemiparesis. 5.Aspiration pneumonia. Plan: The patient is doing much better. Constipation problem has resolved. He has recovered very w ell from pneumonia problem. We will continue physical therapy per guidance of Dr. Mane. Continu e other current medical management. I will see him tomorrow for followup. DAWNA/MODL Voice ID: [id number] Report ID: [id number]
[2018-09-23] MEDS: LIDOCAINE 5% PATCH TOP SCH (08:01)
[2018-09-23] MEDS: ENOXAPARIN 40 MG/0.4 ML SQ SCH (08:01)
[2018-09-23] MEDS: MAGNESIUM OXIDE 400 MG TAB PO SCH ×2 (08:01→19:09)
[2018-09-23] MEDS: AMOX/K CLAV 875 MG TAB PO SCH ×2 (08:02→19:09)
[2018-09-23] MEDS: BACLOFEN 10 MG TAB PO SCH ×2 (08:02→13:49)
[2018-09-23] MEDS: AMLODIPINE 5 MG TAB PO SCH (08:02)
[2018-09-23] MEDS: RAMIPRIL 5 MG CAP PO SCH ×2 (08:02→19:13)
[2018-09-23] MEDS: PROMOD 30 ML DOSE PO SCH ×2 (08:02→19:09)
[2018-09-23] MEDS: ESCITALOPRAM 20 MG TAB PO SCH (08:02)
--- NOTE | 2018-09-23 14:42 | FAST ---
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 Daniel Mane M.D. ADMISSION DIAGNOSIS: - Orthopaedic Disorders 08 - Unilateral Hip Fracture (08.11) RIGHT FEMORAL NECK FRACTURE. EATING: EATING - STEP 1: Does the patient require the assistance of a person or device, or need extra time when eating? Yes. EATING - STEP 2: Does the patient require the assistance of a helper? Yes. EATING - STEP 3: Does the patient perform half or more of the eating tasks? Yes. EATING - STEP 4: Does the patient need only supervision, cuing, coaxing OR help to apply an orthosis OR help to cut fo od, open containers, pour liquids, or butter bread? Yes. EATING - SCORE: 5-SUP GROOMING: Comb/brush hair Oral care Patient shaved Wash, rinse, and dry face Wash, rinse, and dry hands GROOMING - STEP 1: Does the patient require the assistance of a person or device, or need extra time when grooming? Yes. GROOMING - STEP 2: Does the patient require the assistance of a helper? Yes. GROOMING - STEP 3: How much assistance does the patient require from the helper? Cuing, coaxing, instructions, or encour agement for completion of grooming GROOMING - SCORE: 5-SUP BATHING: Activity did not occur on this shift BATHING - SCORE: 0-UNK DRESSING - UPPER BODY: T-shirt/pullover shirt (four steps) ARTICLES SCORE Total number of steps: 4 DRESSING - UPPER BODY - STEP 1: Does the patient require help from a person or device, or need extra time when dressing above the meek st? Yes. DRESSING - UPPER BODY - STEP 2: Does the patient require the assistance of a helper? Yes. DRESSING - UPPER BODY - STEP 3: Does the helper touch the patient while dressing? Yes. DRESSING - UPPER BODY - STEP 4: How many of the total steps does the patient complete on his/her own? 3 DRESSING - UPPER BODY - SCORE: 4-MIN DRESSING - LOWER BODY: Elastic waist pants (three steps) Sock - Left foot (one step) Sock - Right foot (one step) Tied or buckled shoe - Left foot (two steps) Tied or buckled shoe - Right foot (two steps) Underwear (three steps) ARTICLES SCORE Total number of steps: 12 DRESSING - LOWER BODY - STEP 1: Does the patient require help from a person or device, or need extra time when dressing below the meek st? Yes. DRESSING - LOWER BODY - STEP 2: Does the patient require the assistance of a helper? Yes. DRESSING - LOWER BODY - STEP 3: Does the helper touch the patient while dressing? Yes. DRESSING - LOWER BODY - STEP 4: How many of the total steps does the patient complete on his/her own? 4 DRESSING - LOWER BODY - STEP 5: Does patient require total assistance for dressing below the waist such as the helper holding clothin g and performing basically all the activities? Yes. DRESSING - LOWER BODY - SCORE: 1-DEP TOILETING: TOILETING - STEP 1: Does the patient require the assistance of a person or device, or need extra time with toileting? Yes . TOILETING - STEP 2: Does the patient require the assistance of a helper? Yes. TOILETING - STEP 3: How much assistance does the patient require from the helper? Hands-on assistance from the helper TOILETING - STEP 4: Of the 3 tasks: 1) Adjusting clothing prior to use, 2) Cleansing of perineal area, 3) Adjusting clot stephenie after use; How many tasks does the patient perform WITHOUT assistance of the helper? No tasks; h elper performs all three tasks TOILETING - SCORE: 1-DEP BLADDER MANAGEMENT: Sterling removes incontinent device (Depends, pull ups, etc.); cleans the patient after accident / inco ntinent episode; and, applies new incontinent device. BLADDER MANAGEMENT - SCORE: 1-DEP BLADDER MANAGEMENT - FREQUENCY OF ACCIDENTS: BLADDER MANAGEMENT(FA) - STEP 1: How many accidents has the patient had during the current shift? 3 BOWEL MANAGEMENT: BOWEL MANAGEMENT - STEP 1: Does the patient control bowels completely and intentionally without equipment devices or medications AND is always continent? No. BOWEL MANAGEMENT - STEP 2: Does the patient require the assistance of a helper? Yes. BOWEL MANAGEMENT - STEP 3: How much assistance does the patient require from the helper? Patient requires supervision, stand by, cueing, coaxing, or setup of equipment - placing within reach of patient and emptying device / bedpa nd or BSC bucket - to maintain either satisfactory bowel pattern or managing an external device such as an absorbent pad, colostomy bag / ileostomy bag BOWEL MANAGEMENT - SCORE: 5-SUP BOWEL MANAGEMENT - FREQUENCY OF ACCIDENTS: BOWEL MANAGEMENT(FA) - STEP 1: How many accidents has the patient had during the current shift? 0 TRANSFERS: BED, CHAIR, WHEELCHAIR: TRANSFERS: BED, CHAIR, WHEELCHAIR - STEP 1: Does the patient require assistance of a person or device, or need extra time with bed, chair, or whe elchair transfers? Yes. TRANSFERS: BED, CHAIR, WHEELCHAIR - STEP 2: Does the patient require the assistance of a helper? Yes. TRANSFERS: BED, CHAIR, WHEELCHAIR - STEP 3: How much assistance does the patient require from the helper? Lifting of the patient TRANSFERS: BED, CHAIR, WHEELCHAIR - STEP 4: Does the helper lift the patient ONLY up? ONLY down? Up AND Down? Up AND Down. TRANSFERS: BED, CHAIR, WHEELCHAIR - SCORE: 2-MAX TRANSFERS: TOILET: TRANSFERS: TOILET - STEP 1: Does the patient require the assistance of a person or device, or need extra time with toilet transfe rs? Yes. TRANSFERS: TOILET - STEP 2: Does the patient require the assistance of a helper? Yes. TRANSFERS: TOILET - STEP 3: How much assistance does the patient require from the helper? Patient performs less than half of the transferring tasks TRANSFERS: TOILET - STEP 4: Does the patient require total assistance for the toilet transfer such as the helper doing basically all the lifting? No. TRANSFERS: TOILET - SCORE: 2-MAX TRANSFERS: SHOWER: Activity did not occur on this shift TRANSFERS: SHOWER - SCORE: 0-UNK TRANSFERS: TUB: Activity did not occur on this shift TRANSFERS: TUB - SCORE: 0-UNK LOCOMOTION: WALK: Activity did not occur on this shift LOCOMOTION: WALK - SCORE: 0-UNK LOCOMOTION: WHEELCHAIR: Activity did not occur on this shift LOCOMOTION: WHEELCHAIR - SCORE: 0-UNK COMPREHENSION: COMPREHENSION: TYPE: Both COMPREHENSION - STEP 1: Does the patient require help from a person or device, or need extra time to understand complex and a bstract ideas (such as current events, finances, discharge planning, medical issues, relationships, e tc)? No. COMPREHENSION - STEP 2: Does the patient need extra time, require an assistive device (such as glasses for visual comprehensi on or a hearing aid for auditory comprehension) or does s/he have mild difficulty understanding compl ex and abstract information? Yes. COMPREHENSION - SCORE: 6-ROBBY EXPRESSION EXPRESSION: TYPE: Both EXPRESSION - STEP 1: Does the patient require help from a person or device, or need extra time expressing complex and abst ract ideas (such as current events, finances, discharge planning, medical issues, relationships, etc) ? No. EXPRESSION - STEP 2: Does the patient need extra time, require an assistive device (such as augmentive communication syste m or a communication board), OR does s/he have mild difficulty expressing complex and abstract ideas (including mild dysarthria or mild word-find problems)? Yes. EXPRESSION - SCORE: 6-ROBBY SOCIAL INTERACTION: SOCIAL INTERACTION - STEP 1: Does the patient require a helper to interact with others in social and therapeutic situations? No. SOCIAL INTERACTION - STEP 2: Does the patient need extra time in social situations, OR does s/he interact with staff, other patien ts, and family members ONLY in structured environments, OR does s/he require medication for social in teraction? Yes, patient needs extra time SOCIAL INTERACTION - SCORE: 6-ROBBY PROBLEM SOLVING: PROBLEM SOLVING - STEP 1: Does the patient need help from a person or device, or need extra time to solve complex problems such as managing a checking account or confronting interpersonal problems? No. PROBLEM SOLVING - STEP 2: Does the patient require extra time to make decisions or solve problems, OR does s/he have slight dif ficulty reading, initiating, or self-correcting in unfamiliar situations? Yes, patient needs extra ti me. PROBLEM SOLVING - SCORE: 6-ROBBY MEMORY: MEMORY - STEP 1: Does the patient need help from a person or device, or need extra time to remember frequently encount ered people, daily routines, and executing requests? No. MEMORY - STEP 2: Does the patient have slight difficulty recognizing frequently encountered people, daily routines, or executing requests without the need for repetition or using self-initiated or environmental cues to remember? Yes. MEMORY - SCORE: 6-ROBBY SIGNATURE PANEL: The following modified sections: Eating - Score, Grooming - Score, Bathing - Score, Dressing - Upper Body - Score, Dressing - Lower Body - Score, Toileting - Score, Bladder Management - Score, Bowel Man agement - Score, Transfers: Bed, Chair, Wheelchair - Score, Transfers: Toilet - Score, Transfers: Kayla wer - Score, Transfers: Tub - Score, Locomotion: Walk - Score, Locomotion: Wheelchair - Score, Compre hension - Score, Expression - Score, Social Interaction - Score, Problem Solving - Score, Memory - Sc ore were [electronically] signed by Candido HuiN.Darren on MonSep 23 2018 14:41:29 GMT-0600 ([place])
--- NOTE | 2018-09-23 15:17 | PN ---
Date of Progress Note: 09/23/2018 Subjective: The patient was seen this morning for followup. No new complaints or problems reported by patient. Objective: General: Lying in bed, not in distress. Vital Signs: Reviewed. HEENT: Unremarkable. Lungs: Clear to auscultation. Heart: Sounds normal. Abdomen: Soft. Bowel sounds normal. No guarding, rigidity, tenderness, or distention. Extremities: No leg edema. Skin: Right lateral thigh area has well-healed surgical incision. [place] were removed this week an d there is no evidence of any redness, swelling, gapping, discharge. Impression: 1.Right hip fracture. 2.Hypertension. 3.Stroke with right-sided hemiparesis. 4.Aspiration pneumonia. Plan: We will continue current medication. Continue current antihypertensive medication and DVT pro phylaxis. We will see him tomorrow for followup. We will discontinue his antibiotics today. DAWNA/MODL Voice ID: [id number] Report ID: [id number]
[2018-09-23] MEDS: MECLIZINE HCL 12.5 MG TAB PO PRN (19:09)
[2018-09-23] MEDS: ARIPiprazole 5 MG TAB PO SCH (19:09)
[2018-09-23] MEDS: HYDROCODONE/APAP 5/325 MG TAB PO PRN (19:09)
[2018-09-23] MEDS: DOCUSATE NA/SENNA CONC 1 TAB PO SCH (20:07)
--- NOTE | 2018-09-24 01:45 | FAST ---
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 Daniel Mane M.D. ADMISSION DIAGNOSIS: - Orthopaedic Disorders 08 - Unilateral Hip Fracture (08.11) RIGHT FEMORAL NECK FRACTURE. EATING: Activity did not occur on this shift EATING - SCORE: 0-UNK GROOMING: Activity did not occur on this shift GROOMING - SCORE: 0-UNK BATHING: Activity did not occur on this shift BATHING - SCORE: 0-UNK DRESSING - UPPER BODY: Patient is not dressing in public clothing ARTICLES SCORE Total number of steps: 0 DRESSING - UPPER BODY - SCORE: 0-UNK DRESSING - LOWER BODY: Patient is not dressing in public clothing ARTICLES SCORE Total number of steps: 0 DRESSING - LOWER BODY - SCORE: 0-UNK TOILETING: TOILETING - STEP 1: Does the patient require the assistance of a person or device, or need extra time with toileting? Yes . TOILETING - STEP 2: Does the patient require the assistance of a helper? Yes. TOILETING - STEP 3: How much assistance does the patient require from the helper? Hands-on assistance from the helper TOILETING - STEP 4: Of the 3 tasks: 1) Adjusting clothing prior to use, 2) Cleansing of perineal area, 3) Adjusting clot stephenie after use; How many tasks does the patient perform WITHOUT assistance of the helper? No tasks; h elper performs all three tasks TOILETING - SCORE: 1-DEP BLADDER MANAGEMENT: [place] removes incontinent device (Depends, pull ups, etc.); cleans the patient after accident / inco ntinent episode; and, applies new incontinent device. BLADDER MANAGEMENT - SCORE: 1-DEP BLADDER MANAGEMENT - FREQUENCY OF ACCIDENTS: BLADDER MANAGEMENT(FA) - STEP 1: How many accidents has the patient had during the current shift? 1 BOWEL MANAGEMENT: Activity did not occur on this shift BOWEL MANAGEMENT - SCORE: 7-IND TRANSFERS: BED, CHAIR, WHEELCHAIR: TRANSFERS: BED, CHAIR, WHEELCHAIR - STEP 1: Does the patient require assistance of a person or device, or need extra time with bed, chair, or whe elchair transfers? Yes. TRANSFERS: BED, CHAIR, WHEELCHAIR - STEP 2: Does the patient require the assistance of a helper? Yes. TRANSFERS: BED, CHAIR, WHEELCHAIR - STEP 3: How much assistance does the patient require from the helper? Lifting of the legs TRANSFERS: BED, CHAIR, WHEELCHAIR - STEP 4: How many legs does the patient require the helper to lift? both legs TRANSFERS: BED, CHAIR, WHEELCHAIR - SCORE: 3-MOD TRANSFERS: TOILET: Activity did not occur on this shift TRANSFERS: TOILET - SCORE: 0-UNK TRANSFERS: SHOWER: Activity did not occur on this shift TRANSFERS: SHOWER - SCORE: 0-UNK TRANSFERS: TUB: Activity did not occur on this shift TRANSFERS: TUB - SCORE: 0-UNK LOCOMOTION: WALK: Activity did not occur on this shift LOCOMOTION: WALK - SCORE: 0-UNK LOCOMOTION: WHEELCHAIR: Activity did not occur on this shift LOCOMOTION: WHEELCHAIR - SCORE: 0-UNK COMPREHENSION: COMPREHENSION: TYPE: Both COMPREHENSION - STEP 1: Does the patient require help from a person or device, or need extra time to understand complex and a bstract ideas (such as current events, finances, discharge planning, medical issues, relationships, e tc)? Yes. COMPREHENSION - STEP 2: Does the patient require help to understand questions or statements about basic needs or ideas (such as hunger, thirst, sleep, safety, daily schedule, room location, or discomfort) half or more of the t madeleine? No. COMPREHENSION - STEP 3: How often does the patient need help to understand directions and conversation about basic needs? 10% - 24% of the time COMPREHENSION - SCORE: 4-MIN EXPRESSION EXPRESSION: TYPE: Both EXPRESSION - STEP 1: Does the patient require help from a person or device, or need extra time expressing complex and abst ract ideas (such as current events, finances, discharge planning, medical issues, relationships, etc) ? No. EXPRESSION - STEP 2: Does the patient need extra time, require an assistive device (such as augmentive communication syste m or a communication board), OR does s/he have mild difficulty expressing complex and abstract ideas (including mild dysarthria or mild word-find problems)? Yes. EXPRESSION - SCORE: 6-ROBBY SOCIAL INTERACTION: SOCIAL INTERACTION - STEP 1: Does the patient require a helper to interact with others in social and therapeutic situations? No. SOCIAL INTERACTION - STEP 2: Does the patient need extra time in social situations, OR does s/he interact with staff, other patien ts, and family members ONLY in structured environments, OR does s/he require medication for social in teraction? Yes, patient needs extra time SOCIAL INTERACTION - SCORE: 6-ROBBY PROBLEM SOLVING: PROBLEM SOLVING - STEP 1: Does the patient need help from a person or device, or need extra time to solve complex problems such as managing a checking account or confronting interpersonal problems? No. PROBLEM SOLVING - STEP 2: Does the patient require extra time to make decisions or solve problems, OR does s/he have slight dif ficulty reading, initiating, or self-correcting in unfamiliar situations? Yes, patient needs extra ti me. PROBLEM SOLVING - SCORE: 6-ROBBY MEMORY: MEMORY - STEP 1: Does the patient need help from a person or device, or need extra time to remember frequently encount ered people, daily routines, and executing requests? No. MEMORY - STEP 2: Does the patient have slight difficulty recognizing frequently encountered people, daily routines, or executing requests without the need for repetition or using self-initiated or environmental cues to remember? Yes. MEMORY - SCORE: 6-ROBBY SIGNATURE PANEL: The following modified sections: Eating - Score, Grooming - Score, Dressing - Upper Body - Score, Joseph ssing - Lower Body - Score, Toileting - Score, Bladder Management - Score, Bowel Management - Score, Transfers: Bed, Chair, Wheelchair - Score, Transfers: Toilet - Score, Transfers: Shower - Score, Gupta sfers: Tub - Score, Locomotion: Walk - Score, Locomotion: Wheelchair - Score, Comprehension - Score, Expression - Score, Social Interaction - Score, Problem Solving - Score, Memory - Score were [electro nically] signed by Isabela Arshad CNA on MonSep 24 2018 01:44:37 GMT-0600 (Central Standard Time)
[2018-09-24] MEDS: ENOXAPARIN 40 MG/0.4 ML SQ SCH (07:28)
[2018-09-24] MEDS: PROMOD 30 ML DOSE PO SCH ×2 (08:00→19:16)
[2018-09-24] MEDS: LIDOCAINE 5% PATCH TOP SCH (08:13)
[2018-09-24] MEDS: RAMIPRIL 5 MG CAP PO SCH ×2 (08:14→19:16)
[2018-09-24] MEDS: MECLIZINE HCL 12.5 MG TAB PO PRN (08:14)
[2018-09-24] MEDS: HYDROCODONE/APAP 5/325 MG TAB PO PRN ×3 (08:15→19:17)
[2018-09-24] MEDS: ESCITALOPRAM 20 MG TAB PO SCH (08:15)
[2018-09-24] MEDS: MAGNESIUM OXIDE 400 MG TAB PO SCH ×2 (08:15→19:18)
[2018-09-24] MEDS: AMLODIPINE 5 MG TAB PO SCH (08:15)
[2018-09-24] MEDS: BACLOFEN 10 MG TAB PO PRN ×2 (13:57→20:04)
--- NOTE | 2018-09-24 14:42 | FAST ---
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 Daniel Mane M.D. ADMISSION DIAGNOSIS: - Orthopaedic Disorders 08 - Unilateral Hip Fracture (08.11) RIGHT FEMORAL NECK FRACTURE. EATING: EATING - STEP 1: Does the patient require the assistance of a person or device, or need extra time when eating? Yes. EATING - STEP 2: Does the patient require the assistance of a helper? Yes. EATING - STEP 3: Does the patient perform half or more of the eating tasks? Yes. EATING - STEP 4: Does the patient need only supervision, cuing, coaxing OR help to apply an orthosis OR help to cut fo od, open containers, pour liquids, or butter bread? Yes. EATING - SCORE: 5-SUP GROOMING: Comb/brush hair Oral care GROOMING - STEP 1: Does the patient require the assistance of a person or device, or need extra time when grooming? Yes. GROOMING - STEP 2: Does the patient require the assistance of a helper? Yes. GROOMING - STEP 3: How much assistance does the patient require from the helper? Only prior equipment preparation/set up from the helper GROOMING - SCORE: 5-SUP BATHING: Activity did not occur on this shift BATHING - SCORE: 0-UNK DRESSING - UPPER BODY: Activity did not occur on this shift ARTICLES SCORE Total number of steps: 0 DRESSING - UPPER BODY - SCORE: 0-UNK DRESSING - LOWER BODY: Activity did not occur on this shift ARTICLES SCORE Total number of steps: 0 DRESSING - LOWER BODY - SCORE: 0-UNK TOILETING: TOILETING - STEP 1: Does the patient require the assistance of a person or device, or need extra time with toileting? Yes . TOILETING - STEP 2: Does the patient require the assistance of a helper? Yes. TOILETING - STEP 3: How much assistance does the patient require from the helper? Hands-on assistance from the helper TOILETING - STEP 4: Of the 3 tasks: 1) Adjusting clothing prior to use, 2) Cleansing of perineal area, 3) Adjusting clot stephenie after use; How many tasks does the patient perform WITHOUT assistance of the helper? Two tasks TOILETING - SCORE: 3-MOD BLADDER MANAGEMENT: [place] removes incontinent device (Depends, pull ups, etc.); cleans the patient after accident / inco ntinent episode; and, applies new incontinent device. BLADDER MANAGEMENT - SCORE: 1-DEP BLADDER MANAGEMENT - FREQUENCY OF ACCIDENTS: BLADDER MANAGEMENT(FA) - STEP 1: How many accidents has the patient had during the current shift? 2 BOWEL MANAGEMENT: Activity did not occur on this shift BOWEL MANAGEMENT - SCORE: 7-IND TRANSFERS: BED, CHAIR, WHEELCHAIR: TRANSFERS: BED, CHAIR, WHEELCHAIR - STEP 1: Does the patient require assistance of a person or device, or need extra time with bed, chair, or whe elchair transfers? Yes. TRANSFERS: BED, CHAIR, WHEELCHAIR - STEP 2: Does the patient require the assistance of a helper? Yes. TRANSFERS: BED, CHAIR, WHEELCHAIR - STEP 3: How much assistance does the patient require from the helper? Lifting of the patient TRANSFERS: BED, CHAIR, WHEELCHAIR - STEP 4: Does the helper lift the patient ONLY up? ONLY down? Up AND Down? ONLY up. TRANSFERS: BED, CHAIR, WHEELCHAIR - SCORE: 3-MOD TRANSFERS: TOILET: TRANSFERS: TOILET - STEP 1: Does the patient require the assistance of a person or device, or need extra time with toilet transfe rs? Yes. TRANSFERS: TOILET - STEP 2: Does the patient require the assistance of a helper? Yes. TRANSFERS: TOILET - STEP 3: How much assistance does the patient require from the helper? Patient performs half or more of the tr ansferring tasks TRANSFERS: TOILET - STEP 4: Does the patient need only incidental help such as contact guard or steadying during toilet transfer? No. Patient needs more than incidental help TRANSFERS: TOILET - SCORE: 3-MOD TRANSFERS: SHOWER: Activity did not occur on this shift TRANSFERS: SHOWER - SCORE: 0-UNK TRANSFERS: TUB: Activity did not occur on this shift TRANSFERS: TUB - SCORE: 0-UNK LOCOMOTION: WALK: Activity did not occur on this shift LOCOMOTION: WALK - SCORE: 0-UNK LOCOMOTION: WHEELCHAIR: Activity did not occur on this shift LOCOMOTION: WHEELCHAIR - SCORE: 0-UNK COMPREHENSION: COMPREHENSION: TYPE: Both COMPREHENSION - STEP 1: Does the patient require help from a person or device, or need extra time to understand complex and a bstract ideas (such as current events, finances, discharge planning, medical issues, relationships, e tc)? No. COMPREHENSION - STEP 2: Does the patient need extra time, require an assistive device (such as glasses for visual comprehensi on or a hearing aid for auditory comprehension) or does s/he have mild difficulty understanding compl ex and abstract information? No. COMPREHENSION - SCORE: 7-IND EXPRESSION EXPRESSION: TYPE: Both EXPRESSION - STEP 1: Does the patient require help from a person or device, or need extra time expressing complex and abst ract ideas (such as current events, finances, discharge planning, medical issues, relationships, etc) ? No. EXPRESSION - STEP 2: Does the patient need extra time, require an assistive device (such as augmentive communication syste m or a communication board), OR does s/he have mild difficulty expressing complex and abstract ideas (including mild dysarthria or mild word-find problems)? Yes. EXPRESSION - SCORE: 6-ROBBY SOCIAL INTERACTION: SOCIAL INTERACTION - STEP 1: Does the patient require a helper to interact with others in social and therapeutic situations? Yes. SOCIAL INTERACTION - STEP 2: Does the patient interact appropriately half or more of the time? Yes. SOCIAL INTERACTION - STEP 3: How often does the patient need help to interact appropriately? Less than 10% of the time SOCIAL INTERACTION - SCORE: 5-SUP PROBLEM SOLVING: PROBLEM SOLVING - STEP 1: Does the patient need help from a person or device, or need extra time to solve complex problems such as managing a checking account or confronting interpersonal problems? No. PROBLEM SOLVING - STEP 2: Does the patient require extra time to make decisions or solve problems, OR does s/he have slight dif ficulty reading, initiating, or self-correcting in unfamiliar situations? Yes, patient needs extra ti me. PROBLEM SOLVING - SCORE: 6-ROBBY MEMORY: MEMORY - STEP 1: Does the patient need help from a person or device, or need extra time to remember frequently encount ered people, daily routines, and executing requests? Yes. MEMORY - STEP 2: How often does the patient need help to remember frequently encountered people, daily routines, and e xecuting requests? Less than 10% of the time MEMORY - SCORE: 5-SUP SIGNATURE PANEL: The following modified sections: Eating - Score, Grooming - Score, Bathing - Score, Dressing - Upper Body - Score, Dressing - Lower Body - Score, Toileting - Score, Bladder Management - Score, Bowel Man agement - Score, Transfers: Bed, Chair, Wheelchair - Score, Transfers: Toilet - Score, Transfers: Kayla wer - Score, Transfers: Tub - Score, Locomotion: Walk - Score, Locomotion: Wheelchair - Score, Compre hension - Score, Expression - Score, Social Interaction - Score, Problem Solving - Score, Memory - Sc ore were [electronically] signed by Cali Barron on MonSep 24 2018 14:41:58 GMT-0600 (Central Standard Time)
--- NOTE | 2018-09-24 15:56 | FAST ---
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 Daniel Mane M.D. ADMISSION DIAGNOSIS: - Orthopaedic Disorders 08 - Unilateral Hip Fracture (08.11) RIGHT FEMORAL NECK FRACTURE. EATING: Activity did not occur on this shift EATING - SCORE: 0-UNK GROOMING: Activity did not occur on this shift GROOMING - SCORE: 0-UNK BATHING: Activity did not occur on this shift BATHING - SCORE: 0-UNK DRESSING - UPPER BODY: Activity did not occur on this shift Patient is not dressing in public clothing ARTICLES SCORE Total number of steps: 0 DRESSING - UPPER BODY - SCORE: 0-UNK DRESSING - LOWER BODY: Activity did not occur on this shift Patient is not dressing in public clothing ARTICLES SCORE Total number of steps: 0 DRESSING - LOWER BODY - SCORE: 0-UNK TOILETING: Activity did not occur on this shift TOILETING - SCORE: 0-UNK BLADDER MANAGEMENT: Activity did not occur on this shift BLADDER MANAGEMENT - SCORE: 7-IND BOWEL MANAGEMENT: Activity did not occur on this shift BOWEL MANAGEMENT - SCORE: 7-IND TRANSFERS: BED, CHAIR, WHEELCHAIR: TRANSFERS: BED, CHAIR, WHEELCHAIR - STEP 1: Does the patient require assistance of a person or device, or need extra time with bed, chair, or whe elchair transfers? Yes. TRANSFERS: BED, CHAIR, WHEELCHAIR - STEP 2: Does the patient require the assistance of a helper? Yes. TRANSFERS: BED, CHAIR, WHEELCHAIR - STEP 3: How much assistance does the patient require from the helper? Lifting of the patient TRANSFERS: BED, CHAIR, WHEELCHAIR - STEP 4: Does the helper lift the patient ONLY up? ONLY down? Up AND Down? ONLY up. TRANSFERS: BED, CHAIR, WHEELCHAIR - SCORE: 3-MOD TRANSFERS: TOILET: Activity did not occur on this shift TRANSFERS: TOILET - SCORE: 0-UNK TRANSFERS: SHOWER: Activity did not occur on this shift TRANSFERS: SHOWER - SCORE: 0-UNK TRANSFERS: TUB: Activity did not occur on this shift TRANSFERS: TUB - SCORE: 0-UNK LOCOMOTION: WALK: LOCOMOTION: WALK - STEP 1: Does the patient need help from a person or device, or need extra time to walk 150 feet? Yes. LOCOMOTION: WALK - STEP 2: How much assistance does the patient require to walk a minimum of 150 feet? Patient walks less than 1 50 feet - but more than 50 feet - with the assistance of only one helper LOCOMOTION: WALK - SCORE: 2-MAX LOCOMOTION: WHEELCHAIR: LOCOMOTION: WHEELCHAIR - STEP 1: Does the patient need help to go 150 feet in a wheelchair? No. LOCOMOTION: WHEELCHAIR - SCORE: 6-ROBBY LOCOMOTION: STAIRS: Activity did not occur on this shift LOCOMOTION: STAIRS - SCORE: 0-UNK COMPREHENSION: COMPREHENSION - SCORE: 0-UNK EXPRESSION EXPRESSION - SCORE: 0-UNK SOCIAL INTERACTION: SOCIAL INTERACTION - SCORE: 0-UNK PROBLEM SOLVING: PROBLEM SOLVING - SCORE: 0-UNK MEMORY: MEMORY - SCORE: 0-UNK SIGNATURE PANEL: The following modified sections: Transfers: Bed, Chair, Wheelchair - Score, Transfers: Toilet - Score , Locomotion: Walk - Score, Locomotion: Wheelchair - Score, Locomotion: Stairs - Score were [electron gerard] signed by Jacky Santoro PT on MonSep 24 2018 15:55:52 GMT-0600 (Central Standard Time)
--- NOTE | 2018-09-24 17:42 | R.PN ---
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 Pt denied any Shortness of Breath. Mr. 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 His right lower extremity spastic dorsiflexion is not likely due complications following surgery. 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 Pt denied any depression. Hgb 10.7, prealbumin 23.0, glucose 92-124. Ambulated 250' with standby assistance using left hemiwalker. He report more mid back pain after his lidocaine pain patches have been removed. The patches will be replaced. VITAL SIGNS Temperature: 97.0 F SBP/DBP: 150/78 Pulse:72 Resp: 16 MEDICATION ALLERGIES: Sulfa ENVIRONMENTAL ALLERGIES: None Known - Substance Allergies None Known - Other Allergies None Known NURSING: - Shower allowing shower - Skin care per protocol PRECAUTIONS: - Posterior Hip Precaution No adduction across midline No external rotation No hip flexion >90 degrees No internal rotation No wheel chair propulsion - Weight Bearing Precaution WBAT right LE ACTIVITIES OOB only with supervision THERAPIES: - Occupational Therapy Evaluate and Treat. - Physical Therapy Evaluate and Treat. PHYSICAL EXAM - Gen Alert and awake Lying in bed No apparent distress Oriented to: person, time, and place - Skin No breakdown No abnormalities - Eyes No abnormalities - ENMT No abnormalities - Neck No abnormalities - CVS RRR - Chest No abnormalities - Abd + bowel sounds - GI Soft Deferred - No abnormalities - Ext Right hip surgical site has good hemostasis. - MSK 3+/5 weakness in right lower extremity. 1/5 right upper extremity strength. - Neuro 4/5 strength right lower extremity. - Psych No abnormalities ASSESSMENT: Pt. is a 68 yo Right-handed white male.On 09/07/2018 he was admitted to [facility] with diagnosis RIGHT FEMORAL NECK FRACTURE.His impairment category is Orthopaedic Disorders 08 - Unilateral Hip Fracture (08.11).Pre-morbidly, Pt. was independent/mod-I in Sphincter Control, Transf ers Control, Communication, Social Cognition, Self-Care, and Locomotion; and he had good Sphincter Co ntrol.Currently, he has deficits of Endurance, Safety Awareness, Transfers Control, Balance, Self-Car e, and Locomotion.Pt. is now referred to [facility] for acute in-patient rehab ilitation in order to maximize patient's functional independence in activities of daily living, stren gth, ROM, and mobility.- Rehab Goal Patient has realistic goal of being discharged at assistance level 6-Henny to reside at Home with Fam liana/Relatives. MDM/PLAN: - Physical Therapy Decreased range of motion - to improve, our physical therapists will perform initial evaluation of p t's status upon admission and devise an individualized program for increasing patient's Range of William on. Gait dysfunction - to improve, our physical therapists will perform initial evaluation of pt's statu s upon admission and devise an individualized program for Gait Training, and Wheel Chair mobility Inability to transfer - to improve, our physical therapists will perform initial evaluation of pt's status upon admission and devise an individualized program for Bed mobility Need for home safety evaluation - to improve, our physical therapists will perform initial evaluatio n of pt's status upon admission and devise an individualized program for Home Evaluation Need in caregiver upon discharge - to improve, our physical therapists will perform initial evaluati on of pt's status upon admission and devise an individualized program for Caregiver Training New precaution - to improve, our physical therapists will perform initial evaluation of pt's status upon admission and devise an individualized program for Patient precaution education Poor balance - to improve, our physical therapists will perform initial evaluation of pt's status up on admission and devise an individualized program for Balance Training Poor endurance - to improve, our physical therapists will perform initial evaluation of pt's status upon admission and devise an individualized program for Endurance Training Weakness - to improve, our physical therapists will perform initial evaluation of pt's status upon a dmission and devise an individualized program for Aquatic Therapy, Neuromuscular Reeducation, and Str engthening Achieving independence - to improve, our physical therapists will perform initial evaluation of pt's status upon admission and devise an individualized program for Community Reintegration Activities - Occupational Therapy ADL deficits - to improve, our occupation therapists will perform initial evaluation of pt's status upon admission and devise an individualized program for Bathing, Bed mobility, Community Reintegratio n, Cooking, Dressing, Eating, Fine Motor Skills, Grooming, Homemaking, Kitchen Mobility, Laundry, Pat ient Education, Safety Awareness, Splinting - Positioning, Transfers(Toilet, Tub, Shower), and Wheel Chair Management Need for career orientation teacher - to improve, our occupation therapists will perform initial evaluation of pt's status upon admission and devise an individualized program for Caregiver Training Weakness - to improve, our occupation therapists will perform initial evaluation of pt's status upon admission and devise an individualized program for Aquatic Therapy, Balance, Endurance, UE ROM, and UE strengthening - Anterior Hip Precaution No abduction No active extension No adduction across midline No external rotation No hip flexion >90 degrees No internal rotation - Diet - Liquid Texture Continue Regular - Tube Feed Continue N/A - Diet Type Continue Heart Healthy - Posterior Hip Precaution No adduction across midline No external rotation No hip flexion >90 degrees No internal rotation No wheel chair propulsion - Weight Bearing Precaution WBAT right LE - Skin care per protocol - Diet - Solid Texture Continue Regular - Shower allowing shower FUNCTIONAL STATUS: UPDATED AT WEEKLY TEAM CONFERENCE - Bladder Same accident frequency: 7-Ind - No accidents in the past 7 days - Bowel Same accident frequency: 7-Ind - No accidents in the past 7 days - Walking Same score based on distance walked: 0(N/A) - Wheelchair Same score based on distance traveled: 0(N/A) FUNCTIONAL STATUS: - Self-Care A. Eating sup B. Grooming sup C. Bathing sup D. Dressing - Upper sup E. Dressing - Lower Ruddy F. Toileting modA - Sphincter Control G: Bladder control Ind H: Bowel control Ind - Transfers Control I. Bed/Chair/Wheelchair modA J. Toilet modA K. Tub/Shower ADNO - Locomotion L. Walk/Wheelchair (C) modA L. Walk/Wheelchair (W) modA M. Stairs ADNO - Communication N. Comprehension (B) Henny O. Expression (B) Henny - Social Cognition P. Social Interaction Henny Q. Problem Solving Henny R. Memory Henny - Endurance Poor - Balance Poor - Safety Awareness Fair CURRENT FUNC. 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
[2018-09-24] MEDS: ARIPiprazole 5 MG TAB PO SCH (19:17)
[2018-09-24] MEDS: DOCUSATE NA/SENNA CONC 1 TAB PO SCH (20:04)
--- NOTE | 2018-09-25 01:12 | PN ---
Date of Progress Note: 09/24/2018 Subjective: The patient was seen this morning for followup. No new complaints or problems reported by him. Lying in bed, not in any distress. Denies any constipation problem. The pain in his right hip, thigh area is under much better control than before. Objective: Vital Signs: Reviewed. HEENT: Examination unremarkable. Lungs: Clear to auscultation. Heart: Sounds normal. Abdomen: Soft. Bowel sounds normal. No guarding, rigidity, tenderness, or distention. Extremities: No leg edema. Impression: 1.Right hip fracture. 2.Hypertension. 3.Coronary artery disease. 4.Paroxysmal atrial fibrillation. 5.Anemia. 6.Pneumonia. Plan: We will continue current medications. Continue current antihypertensive medication and DVT pr ophylaxis. Physical therapy per Dr. Mane, and we will see him tomorrow for followup. DAWNA/MODL Voice ID: [id number] Report ID: [id number]
--- NOTE | 2018-09-25 02:31 | FAST ---
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 Daniel Mane M.D. ADMISSION DIAGNOSIS: - Orthopaedic Disorders 08 - Unilateral Hip Fracture (08.11) RIGHT FEMORAL NECK FRACTURE. EATING: Activity did not occur on this shift EATING - SCORE: 0-UNK GROOMING: Activity did not occur on this shift GROOMING - SCORE: 0-UNK BATHING: Activity did not occur on this shift BATHING - SCORE: 0-UNK DRESSING - UPPER BODY: Activity did not occur on this shift ARTICLES SCORE Total number of steps: 0 DRESSING - UPPER BODY - SCORE: 0-UNK DRESSING - LOWER BODY: Activity did not occur on this shift ARTICLES SCORE Total number of steps: 0 DRESSING - LOWER BODY - SCORE: 0-UNK TOILETING: Activity did not occur on this shift TOILETING - SCORE: 0-UNK BLADDER MANAGEMENT: Carbon removes incontinent device (Depends, pull ups, etc.); cleans the patient after accident / inco ntinent episode; and, applies new incontinent device. BLADDER MANAGEMENT - SCORE: 1-DEP BOWEL MANAGEMENT: Activity did not occur on this shift BOWEL MANAGEMENT - SCORE: 7-IND TRANSFERS: BED, CHAIR, WHEELCHAIR: Patient requires more than one helper and/or the use of a mechanical lift is utilized TRANSFERS: BED, CHAIR, WHEELCHAIR - SCORE: 1-DEP TRANSFERS: TOILET: Activity did not occur on this shift TRANSFERS: TOILET - SCORE: 0-UNK TRANSFERS: SHOWER: Activity did not occur on this shift TRANSFERS: SHOWER - SCORE: 0-UNK TRANSFERS: TUB: Activity did not occur on this shift TRANSFERS: TUB - SCORE: 0-UNK LOCOMOTION: WALK: Activity did not occur on this shift LOCOMOTION: WALK - SCORE: 0-UNK LOCOMOTION: WHEELCHAIR: Activity did not occur on this shift LOCOMOTION: WHEELCHAIR - SCORE: 0-UNK COMPREHENSION: COMPREHENSION: TYPE: Both COMPREHENSION - STEP 1: Does the patient require help from a person or device, or need extra time to understand complex and a bstract ideas (such as current events, finances, discharge planning, medical issues, relationships, e tc)? Yes. COMPREHENSION - STEP 2: Does the patient require help to understand questions or statements about basic needs or ideas (such as hunger, thirst, sleep, safety, daily schedule, room location, or discomfort) half or more of the t madeleine? No. COMPREHENSION - STEP 3: How often does the patient need help to understand directions and conversation about basic needs? 10% - 24% of the time COMPREHENSION - SCORE: 4-MIN EXPRESSION EXPRESSION: TYPE: Both EXPRESSION - STEP 1: Does the patient require help from a person or device, or need extra time expressing complex and abst ract ideas (such as current events, finances, discharge planning, medical issues, relationships, etc) ? Yes. EXPRESSION - STEP 2: Does the patient require help to express basic necessities or ideas (such as hunger, thirst, sleep, s afety, daily schedule, room location, or discomfort) half or more of the time? No. EXPRESSION - STEP 3: How often does the patient need help to express directions and conversation about basic needs? 10-24% of the time EXPRESSION - SCORE: 4-MIN SOCIAL INTERACTION: SOCIAL INTERACTION - STEP 1: Does the patient require a helper to interact with others in social and therapeutic situations? No. SOCIAL INTERACTION - STEP 2: Does the patient need extra time in social situations, OR does s/he interact with staff, other patien ts, and family members ONLY in structured environments, OR does s/he require medication for social in teraction? Yes, patient requires medication for social interaction SOCIAL INTERACTION - SCORE: 6-ROBBY PROBLEM SOLVING: PROBLEM SOLVING - STEP 1: Does the patient need help from a person or device, or need extra time to solve complex problems such as managing a checking account or confronting interpersonal problems? Yes. PROBLEM SOLVING - STEP 2: Does the patient solve basic routine problems half or more of the time? Yes. PROBLEM SOLVING - STEP 3: How often does the patient need help to solve basic routine problems? 10%-24% of the time PROBLEM SOLVING - SCORE: 4-MIN MEMORY: MEMORY - STEP 1: Does the patient need help from a person or device, or need extra time to remember frequently encount ered people, daily routines, and executing requests? No. MEMORY - STEP 2: Does the patient have slight difficulty recognizing frequently encountered people, daily routines, or executing requests without the need for repetition or using self-initiated or environmental cues to remember? No. MEMORY - SCORE: 7-IND SIGNATURE PANEL: The following modified sections: Eating - Score, Grooming - Score, Bathing - Score, Dressing - Upper Body - Score, Dressing - Lower Body - Score, Toileting - Score, Bladder Management - Score, Bowel Man agement - Score, Transfers: Bed, Chair, Wheelchair - Score, Transfers: Toilet - Score, Transfers: Kayla wer - Score, Transfers: Tub - Score, Locomotion: Walk - Score, Locomotion: Wheelchair - Score, Compre hension - Score, Expression - Score, Social Interaction - Score, Problem Solving - Score, Memory - Sc ore were [electronically] signed by Milly Arteaga CNA on MonSep 25 2018 02:30:17 T-0600 ([facility])
[2018-09-25] MEDS: LIDOCAINE 5% PATCH TOP SCH (07:41)
[2018-09-25] MEDS: ENOXAPARIN 40 MG/0.4 ML SQ SCH (07:41)
[2018-09-25] MEDS: PROMOD 30 ML DOSE PO SCH ×2 (08:00→19:20)
[2018-09-25] MEDS: TRAMADOL HCL 50 MG TAB PO PRN (08:16)
[2018-09-25] MEDS: BACLOFEN 10 MG TAB PO PRN (08:16)
[2018-09-25] MEDS: ESCITALOPRAM 20 MG TAB PO SCH (08:17)
[2018-09-25] MEDS: MAGNESIUM OXIDE 400 MG TAB PO SCH ×2 (08:17→19:20)
[2018-09-25] MEDS: MECLIZINE HCL 12.5 MG TAB PO PRN (08:17)
[2018-09-25] MEDS: RAMIPRIL 5 MG CAP PO SCH ×2 (08:17→19:20)
[2018-09-25] MEDS: AMLODIPINE 5 MG TAB PO SCH (08:18)
[2018-09-25] MEDS: HYDROCODONE/APAP 5/325 MG TAB PO PRN (12:29)
--- NOTE | 2018-09-25 15:44 | FAST ---
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 Daniel Mane M.D. ADMISSION DIAGNOSIS: - Orthopaedic Disorders 08 - Unilateral Hip Fracture (08.11) RIGHT FEMORAL NECK FRACTURE. EATING: Activity did not occur on this shift EATING - SCORE: 0-UNK GROOMING: Activity did not occur on this shift GROOMING - SCORE: 0-UNK BATHING: Activity did not occur on this shift BATHING - SCORE: 0-UNK DRESSING - UPPER BODY: Activity did not occur on this shift Patient is not dressing in public clothing ARTICLES SCORE Total number of steps: 0 DRESSING - UPPER BODY - SCORE: 0-UNK DRESSING - LOWER BODY: Activity did not occur on this shift Patient is not dressing in public clothing ARTICLES SCORE Total number of steps: 0 DRESSING - LOWER BODY - SCORE: 0-UNK TOILETING: Activity did not occur on this shift TOILETING - SCORE: 0-UNK BLADDER MANAGEMENT: Activity did not occur on this shift BLADDER MANAGEMENT - SCORE: 7-IND BOWEL MANAGEMENT: Activity did not occur on this shift BOWEL MANAGEMENT - SCORE: 7-IND TRANSFERS: BED, CHAIR, WHEELCHAIR: TRANSFERS: BED, CHAIR, WHEELCHAIR - STEP 1: Does the patient require assistance of a person or device, or need extra time with bed, chair, or whe elchair transfers? Yes. TRANSFERS: BED, CHAIR, WHEELCHAIR - STEP 2: Does the patient require the assistance of a helper? Yes. TRANSFERS: BED, CHAIR, WHEELCHAIR - STEP 3: How much assistance does the patient require from the helper? Steadying/guiding assistance TRANSFERS: BED, CHAIR, WHEELCHAIR - SCORE: 4-MIN TRANSFERS: TOILET: Activity did not occur on this shift TRANSFERS: TOILET - SCORE: 0-UNK TRANSFERS: SHOWER: Activity did not occur on this shift TRANSFERS: SHOWER - SCORE: 0-UNK TRANSFERS: TUB: Activity did not occur on this shift TRANSFERS: TUB - SCORE: 0-UNK LOCOMOTION: WALK: LOCOMOTION: WALK - STEP 1: Does the patient need help from a person or device, or need extra time to walk 150 feet? Yes. LOCOMOTION: WALK - STEP 2: How much assistance does the patient require to walk a minimum of 150 feet? Patient walks less than 1 50 feet - but more than 50 feet - with the assistance of only one helper LOCOMOTION: WALK - SCORE: 2-MAX LOCOMOTION: WHEELCHAIR: LOCOMOTION: WHEELCHAIR - STEP 1: Does the patient need help to go 150 feet in a wheelchair? No. LOCOMOTION: WHEELCHAIR - SCORE: 6-ROBBY LOCOMOTION: STAIRS: Activity did not occur on this shift LOCOMOTION: STAIRS - SCORE: 0-UNK COMPREHENSION: COMPREHENSION - SCORE: 0-UNK EXPRESSION EXPRESSION - SCORE: 0-UNK SOCIAL INTERACTION: SOCIAL INTERACTION - SCORE: 0-UNK PROBLEM SOLVING: PROBLEM SOLVING - SCORE: 0-UNK MEMORY: MEMORY - SCORE: 0-UNK SIGNATURE PANEL: The following modified sections: Transfers: Bed, Chair, Wheelchair - Score, Transfers: Toilet - Score , Locomotion: Walk - Score, Locomotion: Wheelchair - Score, Locomotion: Stairs - Score were [aron gee] signed by Jacky Santoro PT on MonSep 25 2018 15:43:26 GMT-0600 (Central Standard Time)
--- NOTE | 2018-09-25 15:48 | FAST ---
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 Daniel Mane M.D. ADMISSION DIAGNOSIS: - Orthopaedic Disorders 08 - Unilateral Hip Fracture (08.11) RIGHT FEMORAL NECK FRACTURE. EATING: EATING - STEP 1: Does the patient require the assistance of a person or device, or need extra time when eating? Yes. EATING - STEP 2: Does the patient require the assistance of a helper? Yes. EATING - STEP 3: Does the patient perform half or more of the eating tasks? Yes. EATING - STEP 4: Does the patient need only supervision, cuing, coaxing OR help to apply an orthosis OR help to cut fo od, open containers, pour liquids, or butter bread? Yes. EATING - SCORE: 5-SUP GROOMING: Comb/brush hair Oral care Wash, rinse, and dry face Wash, rinse, and dry hands GROOMING - STEP 1: Does the patient require the assistance of a person or device, or need extra time when grooming? Yes. GROOMING - STEP 2: Does the patient require the assistance of a helper? Yes. GROOMING - STEP 3: How much assistance does the patient require from the helper? Only prior equipment preparation/set up from the helper GROOMING - SCORE: 5-SUP BATHING: Activity did not occur on this shift BATHING - SCORE: 0-UNK DRESSING - UPPER BODY: T-shirt/pullover shirt (four steps) ARTICLES SCORE Total number of steps: 4 DRESSING - UPPER BODY - STEP 1: Does the patient require help from a person or device, or need extra time when dressing above the meek st? Yes. DRESSING - UPPER BODY - STEP 2: Does the patient require the assistance of a helper? Yes. DRESSING - UPPER BODY - STEP 3: Does the helper touch the patient while dressing? Yes. DRESSING - UPPER BODY - STEP 4: How many of the total steps does the patient complete on his/her own? 3 DRESSING - UPPER BODY - SCORE: 4-MIN DRESSING - LOWER BODY: ARTICLES SCORE Total number of steps: 11 DRESSING - LOWER BODY - STEP 1: Does the patient require help from a person or device, or need extra time when dressing below the meek st? Yes. DRESSING - LOWER BODY - STEP 2: Does the patient require the assistance of a helper? Yes. DRESSING - LOWER BODY - STEP 3: Does the helper touch the patient while dressing? Yes. DRESSING - LOWER BODY - STEP 4: How many of the total steps does the patient complete on his/her own? 2 DRESSING - LOWER BODY - STEP 5: Does patient require total assistance for dressing below the waist such as the helper holding clothin g and performing basically all the activities? Yes. DRESSING - LOWER BODY - SCORE: 1-DEP TOILETING: TOILETING - STEP 1: Does the patient require the assistance of a person or device, or need extra time with toileting? Yes . TOILETING - STEP 2: Does the patient require the assistance of a helper? Yes. TOILETING - STEP 3: How much assistance does the patient require from the helper? Hands-on assistance from the helper TOILETING - STEP 4: Of the 3 tasks: 1) Adjusting clothing prior to use, 2) Cleansing of perineal area, 3) Adjusting clot stephenie after use; How many tasks does the patient perform WITHOUT assistance of the helper? One task TOILETING - SCORE: 2-MAX BLADDER MANAGEMENT: [place] removes incontinent device (Depends, pull ups, etc.); cleans the patient after accident / inco ntinent episode; and, applies new incontinent device. BLADDER MANAGEMENT - SCORE: 1-DEP BLADDER MANAGEMENT - FREQUENCY OF ACCIDENTS: BLADDER MANAGEMENT(FA) - STEP 1: How many accidents has the patient had during the current shift? 3 BOWEL MANAGEMENT: BOWEL MANAGEMENT - STEP 1: Does the patient control bowels completely and intentionally without equipment devices or medications AND is always continent? No. BOWEL MANAGEMENT - STEP 2: Does the patient require the assistance of a helper? No, patient requires medication for control such as stool softeners, suppositories, laxatives, enemas, or OTC medications BOWEL MANAGEMENT - SCORE: 6-ROBBY TRANSFERS: BED, CHAIR, WHEELCHAIR: TRANSFERS: BED, CHAIR, WHEELCHAIR - STEP 1: Does the patient require assistance of a person or device, or need extra time with bed, chair, or whe elchair transfers? Yes. TRANSFERS: BED, CHAIR, WHEELCHAIR - STEP 2: Does the patient require the assistance of a helper? Yes. TRANSFERS: BED, CHAIR, WHEELCHAIR - STEP 3: How much assistance does the patient require from the helper? Lifting of the patient TRANSFERS: BED, CHAIR, WHEELCHAIR - STEP 4: Does the helper lift the patient ONLY up? ONLY down? Up AND Down? ONLY up. TRANSFERS: BED, CHAIR, WHEELCHAIR - SCORE: 3-MOD TRANSFERS: TOILET: TRANSFERS: TOILET - STEP 1: Does the patient require the assistance of a person or device, or need extra time with toilet transfe rs? Yes. TRANSFERS: TOILET - STEP 2: Does the patient require the assistance of a helper? Yes. TRANSFERS: TOILET - STEP 3: How much assistance does the patient require from the helper? Patient performs less than half of the transferring tasks TRANSFERS: TOILET - STEP 4: Does the patient require total assistance for the toilet transfer such as the helper doing basically all the lifting? Yes. TRANSFERS: TOILET - SCORE: 1-DEP TRANSFERS: SHOWER: Activity did not occur on this shift TRANSFERS: SHOWER - SCORE: 0-UNK TRANSFERS: TUB: Activity did not occur on this shift TRANSFERS: TUB - SCORE: 0-UNK LOCOMOTION: WALK: Activity did not occur on this shift LOCOMOTION: WALK - SCORE: 0-UNK LOCOMOTION: WHEELCHAIR: Activity did not occur on this shift LOCOMOTION: WHEELCHAIR - SCORE: 0-UNK COMPREHENSION: COMPREHENSION: TYPE: Both COMPREHENSION - STEP 1: Does the patient require help from a person or device, or need extra time to understand complex and a bstract ideas (such as current events, finances, discharge planning, medical issues, relationships, e tc)? No. COMPREHENSION - STEP 2: Does the patient need extra time, require an assistive device (such as glasses for visual comprehensi on or a hearing aid for auditory comprehension) or does s/he have mild difficulty understanding compl ex and abstract information? Yes. COMPREHENSION - SCORE: 6-ROBBY EXPRESSION EXPRESSION: TYPE: Both EXPRESSION - STEP 1: Does the patient require help from a person or device, or need extra time expressing complex and abst ract ideas (such as current events, finances, discharge planning, medical issues, relationships, etc) ? Yes. EXPRESSION - STEP 2: Does the patient require help to express basic necessities or ideas (such as hunger, thirst, sleep, s afety, daily schedule, room location, or discomfort) half or more of the time? No. EXPRESSION - STEP 3: How often does the patient need help to express directions and conversation about basic needs? Less t watt 10% of the time EXPRESSION - SCORE: 5-SUP SOCIAL INTERACTION: SOCIAL INTERACTION - STEP 1: Does the patient require a helper to interact with others in social and therapeutic situations? Yes. SOCIAL INTERACTION - STEP 2: Does the patient interact appropriately half or more of the time? Yes. SOCIAL INTERACTION - STEP 3: How often does the patient need help to interact appropriately? Less than 10% of the time SOCIAL INTERACTION - SCORE: 5-SUP PROBLEM SOLVING: PROBLEM SOLVING - STEP 1: Does the patient need help from a person or device, or need extra time to solve complex problems such as managing a checking account or confronting interpersonal problems? No. PROBLEM SOLVING - STEP 2: Does the patient require extra time to make decisions or solve problems, OR does s/he have slight dif ficulty reading, initiating, or self-correcting in unfamiliar situations? Yes, patient needs extra ti me. PROBLEM SOLVING - SCORE: 6-ROBBY MEMORY: MEMORY - STEP 1: Does the patient need help from a person or device, or need extra time to remember frequently encount ered people, daily routines, and executing requests? No. MEMORY - STEP 2: Does the patient have slight difficulty recognizing frequently encountered people, daily routines, or executing requests without the need for repetition or using self-initiated or environmental cues to remember? Yes. MEMORY - SCORE: 6-ROBBY SIGNATURE PANEL: The following modified sections: Eating - Score, Bathing - Score, Dressing - Upper Body - Score, Dres sing - Lower Body - Score, Toileting - Score, Bladder Management - Score, Bowel Management - Score, T ransfers: Bed, Chair, Wheelchair - Score, Transfers: Toilet - Score, Transfers: Shower - Score, Trans fers: Tub - Score, Locomotion: Walk - Score, Locomotion: Wheelchair - Score, Comprehension - Score, E xpression - Score, Social Interaction - Score, Problem Solving - Score, Memory - Score, Grooming - Sc ore were [electronically] signed by Cali Barron on MonSep 25 2018 15:46:58 GMT-0600 (Central Standard Time)
--- NOTE | 2018-09-25 17:41 | R.PN ---
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 Pt denied any Shortness of Breath. Mr. 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 His right lower extremity spastic dorsiflexion is not likely due complications following surgery. 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 Pt denied any depression. Hgb 10.7, prealbumin 23.0, glucose 92-124. Ambulated 270' with standby assistance using left hemiwalker. He report improved mid back pain after his lidocaine pain patches have been replaced. VITAL SIGNS Temperature: 97.9 F SBP/DBP: 128/80 Pulse:73 Resp: 14 MEDICATION ALLERGIES: Sulfa ENVIRONMENTAL ALLERGIES: None Known - Substance Allergies None Known - Other Allergies None Known NURSING: - Shower allowing shower - Skin care per protocol PRECAUTIONS: - Posterior Hip Precaution No adduction across midline No external rotation No hip flexion >90 degrees No internal rotation No wheel chair propulsion - Weight Bearing Precaution WBAT right LE ACTIVITIES OOB only with supervision THERAPIES: - Occupational Therapy Evaluate and Treat. - Physical Therapy Evaluate and Treat. PHYSICAL EXAM - Gen Alert and awake Lying in bed No apparent distress Oriented to: person, time, and place - Skin No breakdown No abnormalities - Eyes No abnormalities - ENMT No abnormalities - Neck No abnormalities - CVS RRR - Chest No abnormalities - Abd + bowel sounds - GI Soft Deferred - No abnormalities - Ext Right hip surgical site has good hemostasis. - MSK 3+/5 weakness in right lower extremity. 1/5 right upper extremity strength. - Neuro 4/5 strength right lower extremity. - Psych No abnormalities ASSESSMENT: Pt. is a 68 yo Right-handed white male.On 09/07/2018 he was admitted to [facility] with diagnosis RIGHT FEMORAL NECK FRACTURE.His impairment category is Orthopaedic Disorders 08 - Unilateral Hip Fracture (08.11).Pre-morbidly, Pt. was independent/mod-I in Sphincter Control, Transf ers Control, Communication, Social Cognition, Self-Care, and Locomotion; and he had good Sphincter Co ntrol.Currently, he has deficits of Endurance, Safety Awareness, Transfers Control, Balance, Self-Car e, and Locomotion.Pt. is now referred to [facility] for acute in-patient rehab ilitation in order to maximize patient's functional independence in activities of daily living, stren gth, ROM, and mobility.- Rehab Goal Patient has realistic goal of being discharged at assistance level 6-Henny to reside at Home with Fam liana/Relatives. MDM/PLAN: - Physical Therapy Decreased range of motion - to improve, our physical therapists will perform initial evaluation of p t's status upon admission and devise an individualized program for increasing patient's Range of [place] on. Gait dysfunction - to improve, our physical therapists will perform initial evaluation of pt's statu s upon admission and devise an individualized program for Gait Training, and Wheel Chair mobility Inability to transfer - to improve, our physical therapists will perform initial evaluation of pt's status upon admission and devise an individualized program for Bed mobility Need for home safety evaluation - to improve, our physical therapists will perform initial evaluatio n of pt's status upon admission and devise an individualized program for Home Evaluation Need in caregiver upon discharge - to improve, our physical therapists will perform initial evaluati on of pt's status upon admission and devise an individualized program for Caregiver Training New precaution - to improve, our physical therapists will perform initial evaluation of pt's status upon admission and devise an individualized program for Patient precaution education Poor balance - to improve, our physical therapists will perform initial evaluation of pt's status up on admission and devise an individualized program for Balance Training Poor endurance - to improve, our physical therapists will perform initial evaluation of pt's status upon admission and devise an individualized program for Endurance Training Weakness - to improve, our physical therapists will perform initial evaluation of pt's status upon a dmission and devise an individualized program for Aquatic Therapy, Neuromuscular Reeducation, and Str engthening Achieving independence - to improve, our physical therapists will perform initial evaluation of pt's status upon admission and devise an individualized program for Community Reintegration Activities - Occupational Therapy ADL deficits - to improve, our occupation therapists will perform initial evaluation of pt's status upon admission and devise an individualized program for Bathing, Bed mobility, Community Reintegratio n, Cooking, Dressing, Eating, Fine Motor Skills, Grooming, Homemaking, Kitchen Mobility, Laundry, Pat ient Education, Safety Awareness, Splinting - Positioning, Transfers(Toilet, Tub, Shower), and Wheel Chair Management Need for career development specialist - to improve, our occupation therapists will perform initial evaluation of pt's status upon admission and devise an individualized program for Caregiver Training Weakness - to improve, our occupation therapists will perform initial evaluation of pt's status upon admission and devise an individualized program for Aquatic Therapy, Balance, Endurance, UE ROM, and UE strengthening - Anterior Hip Precaution No abduction No active extension No adduction across midline No external rotation No hip flexion >90 degrees No internal rotation - Diet - Liquid Texture Continue Regular - Tube Feed Continue N/A - Diet Type Continue Heart Healthy - Posterior Hip Precaution No adduction across midline No external rotation No hip flexion >90 degrees No internal rotation No wheel chair propulsion - Weight Bearing Precaution WBAT right LE - Skin care per protocol - Diet - Solid Texture Continue Regular - Shower allowing shower FUNCTIONAL STATUS: UPDATED AT WEEKLY TEAM CONFERENCE - Bladder Same accident frequency: 7-Ind - No accidents in the past 7 days - Bowel Same accident frequency: 7-Ind - No accidents in the past 7 days - Walking Same score based on distance walked: 0(N/A) - Wheelchair Same score based on distance traveled: 0(N/A) FUNCTIONAL STATUS: - Self-Care A. Eating sup B. Grooming sup C. Bathing sup D. Dressing - Upper sup E. Dressing - Lower Ruddy F. Toileting modA - Sphincter Control G: Bladder control Ind H: Bowel control Ind - Transfers Control I. Bed/Chair/Wheelchair modA J. Toilet modA K. Tub/Shower ADNO - Locomotion L. Walk/Wheelchair (C) modA L. Walk/Wheelchair (W) modA M. Stairs ADNO - Communication N. Comprehension (B) Henny O. Expression (B) Henny - Social Cognition P. Social Interaction Henny Q. Problem Solving Henny R. Memory Henny - Endurance Poor - Balance Poor - Safety Awareness Fair CURRENT FUNC. DEFICITS: Endurance, Safety Awareness, Transfers Control, Balance, Self-Care, and Locomotion SIGNATURE PANEL: ([facility])
[2018-09-25] MEDS: ARIPiprazole 5 MG TAB PO SCH (19:20)
[2018-09-25] MEDS: DOCUSATE NA/SENNA CONC 1 TAB PO SCH (20:07)
--- NOTE | 2018-09-25 23:43 | PN ---
Date of Progress Note: 09/25/2018 Subjective: The patient was seen this morning for followup. No new complaints or problems reported by the patient. Lying in bed, not in distress. Objective: Vital Signs: Reviewed. HEENT: Unremarkable. Lungs: Clear to auscultation. Heart: Sounds normal. Abdomen: Soft. Bowel sounds normal. No guarding, rigidity, tenderness, or distention. Extremities: No leg edema. Impression: 1.Right hip fracture. 2.Hypertension. 3.Stroke with right-sided hemiparesis. 4.Hyperlipidemia. Plan: We will continue current medications. Blood pressure is stable. Continue current antihyperte nsive medication. Physical therapy will be provided per Dr. Mane, and I will see him tomorrow fo r followup. DAWNA/MODL Voice ID: [id number] Report ID: [id number]
--- NOTE | 2018-09-26 02:48 | FAST ---
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 Daniel Mane M.D. ADMISSION DIAGNOSIS: - Orthopaedic Disorders 08 - Unilateral Hip Fracture (08.11) RIGHT FEMORAL NECK FRACTURE. EATING: Activity did not occur on this shift EATING - SCORE: 0-UNK GROOMING: Activity did not occur on this shift GROOMING - SCORE: 0-UNK BATHING: Activity did not occur on this shift BATHING - SCORE: 0-UNK DRESSING - UPPER BODY: Patient is not dressing in public clothing ARTICLES SCORE Total number of steps: 0 DRESSING - UPPER BODY - SCORE: 0-UNK DRESSING - LOWER BODY: Patient is not dressing in public clothing ARTICLES SCORE Total number of steps: 0 DRESSING - LOWER BODY - SCORE: 0-UNK TOILETING: Activity did not occur on this shift TOILETING - SCORE: 0-UNK BLADDER MANAGEMENT: [place] removes incontinent device (Depends, pull ups, etc.); cleans the patient after accident / inco ntinent episode; and, applies new incontinent device. BLADDER MANAGEMENT - SCORE: 1-DEP BOWEL MANAGEMENT: Activity did not occur on this shift BOWEL MANAGEMENT - SCORE: 7-IND TRANSFERS: BED, CHAIR, WHEELCHAIR: Patient requires more than one helper and/or the use of a mechanical lift is utilized TRANSFERS: BED, CHAIR, WHEELCHAIR - SCORE: 1-DEP TRANSFERS: TOILET: Activity did not occur on this shift TRANSFERS: TOILET - SCORE: 0-UNK TRANSFERS: SHOWER: Activity did not occur on this shift TRANSFERS: SHOWER - SCORE: 0-UNK TRANSFERS: TUB: Activity did not occur on this shift TRANSFERS: TUB - SCORE: 0-UNK LOCOMOTION: WALK: Activity did not occur on this shift LOCOMOTION: WALK - SCORE: 0-UNK LOCOMOTION: WHEELCHAIR: Activity did not occur on this shift LOCOMOTION: WHEELCHAIR - SCORE: 0-UNK COMPREHENSION: COMPREHENSION: TYPE: Both COMPREHENSION - STEP 1: Does the patient require help from a person or device, or need extra time to understand complex and a bstract ideas (such as current events, finances, discharge planning, medical issues, relationships, e tc)? No. COMPREHENSION - STEP 2: Does the patient need extra time, require an assistive device (such as glasses for visual comprehensi on or a hearing aid for auditory comprehension) or does s/he have mild difficulty understanding compl ex and abstract information? Yes. COMPREHENSION - SCORE: 6-ROBBY EXPRESSION EXPRESSION: TYPE: Both EXPRESSION - STEP 1: Does the patient require help from a person or device, or need extra time expressing complex and abst ract ideas (such as current events, finances, discharge planning, medical issues, relationships, etc) ? No. EXPRESSION - STEP 2: Does the patient need extra time, require an assistive device (such as augmentive communication syste m or a communication board), OR does s/he have mild difficulty expressing complex and abstract ideas (including mild dysarthria or mild word-find problems)? No. EXPRESSION - SCORE: 7-IND SOCIAL INTERACTION: SOCIAL INTERACTION - STEP 1: Does the patient require a helper to interact with others in social and therapeutic situations? No. SOCIAL INTERACTION - STEP 2: Does the patient need extra time in social situations, OR does s/he interact with staff, other patien ts, and family members ONLY in structured environments, OR does s/he require medication for social in teraction? Yes, patient requires medication for social interaction SOCIAL INTERACTION - SCORE: 6-ROBBY PROBLEM SOLVING: PROBLEM SOLVING - STEP 1: Does the patient need help from a person or device, or need extra time to solve complex problems such as managing a checking account or confronting interpersonal problems? Yes. PROBLEM SOLVING - STEP 2: Does the patient solve basic routine problems half or more of the time? Yes. PROBLEM SOLVING - STEP 3: How often does the patient need help to solve basic routine problems? 10%-24% of the time PROBLEM SOLVING - SCORE: 4-MIN MEMORY: MEMORY - STEP 1: Does the patient need help from a person or device, or need extra time to remember frequently encount ered people, daily routines, and executing requests? No. MEMORY - STEP 2: Does the patient have slight difficulty recognizing frequently encountered people, daily routines, or executing requests without the need for repetition or using self-initiated or environmental cues to remember? No. MEMORY - SCORE: 7-IND SIGNATURE PANEL: The following modified sections: Eating - Score, Grooming - Score, Bathing - Score, Dressing - Upper Body - Score, Dressing - Lower Body - Score, Toileting - Score, Bladder Management - Score, Bowel Man agement - Score, Transfers: Bed, Chair, Wheelchair - Score, Transfers: Toilet - Score, Transfers: Kayla wer - Score, Transfers: Tub - Score, Locomotion: Walk - Score, Locomotion: Wheelchair - Score, Compre hension - Score, Expression - Score, Social Interaction - Score, Problem Solving - Score, Memory - Sc ore were [electronically] signed by Milly Arteaga CNA on MonSep 26 2018 02:47:42 T-0600 ([facility])
[2018-09-26 07:30] VITALS: BP 128/76; TEMP 97.5
[2018-09-26] MEDS: LIDOCAINE 5% PATCH TOP SCH (07:55)
[2018-09-26] MEDS: ENOXAPARIN 40 MG/0.4 ML SQ SCH (07:55)
[2018-09-26] MEDS: RAMIPRIL 5 MG CAP PO SCH (07:55)
[2018-09-26] MEDS: AMLODIPINE 5 MG TAB PO SCH (07:58)
[2018-09-26] MEDS: MAGNESIUM OXIDE 400 MG TAB PO SCH (08:00)
[2018-09-26] MEDS: ESCITALOPRAM 20 MG TAB PO SCH (08:00)
[2018-09-26] MEDS: PROMOD 30 ML DOSE PO SCH (08:01)
[2018-09-26] MEDS: TRAMADOL HCL 50 MG TAB PO PRN (08:02)
[2018-09-26] MEDS: BACLOFEN 10 MG TAB PO PRN (12:54)
--- NOTE | 2018-09-26 13:26 | FAST ---
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 Daniel Mane M.D. ADMISSION DIAGNOSIS: - Orthopaedic Disorders 08 - Unilateral Hip Fracture (08.11) RIGHT FEMORAL NECK FRACTURE. EATING: EATING - STEP 1: Does the patient require the assistance of a person or device, or need extra time when eating? Yes. EATING - STEP 2: Does the patient require the assistance of a helper? Yes. EATING - STEP 3: Does the patient perform half or more of the eating tasks? Yes. EATING - STEP 4: Does the patient need only supervision, cuing, coaxing OR help to apply an orthosis OR help to cut fo od, open containers, pour liquids, or butter bread? Yes. EATING - SCORE: 5-SUP GROOMING: Comb/brush hair Oral care Wash, rinse, and dry face Wash, rinse, and dry hands GROOMING - STEP 1: Does the patient require the assistance of a person or device, or need extra time when grooming? Yes. GROOMING - STEP 2: Does the patient require the assistance of a helper? No. The patient only requires an assistive devic e, OR takes more than reasonable time to groom, OR there is a concern for safety as the patient groom s GROOMING - SCORE: 6-ROBBY BATHING: Activity did not occur on this shift BATHING - SCORE: 0-UNK DRESSING - UPPER BODY: T-shirt/pullover shirt (four steps) ARTICLES SCORE Total number of steps: 4 DRESSING - UPPER BODY - STEP 1: Does the patient require help from a person or device, or need extra time when dressing above the meek st? Yes. DRESSING - UPPER BODY - STEP 2: Does the patient require the assistance of a helper? Yes. DRESSING - UPPER BODY - STEP 3: Does the helper touch the patient while dressing? Yes. DRESSING - UPPER BODY - STEP 4: How many of the total steps does the patient complete on his/her own? 3 DRESSING - UPPER BODY - SCORE: 4-MIN DRESSING - LOWER BODY: Elastic waist pants (three steps) Sock - Left foot (one step) Sock - Right foot (one step) Tied or buckled shoe - Left foot (two steps) Tied or buckled shoe - Right foot (two steps) Underwear (three steps) ARTICLES SCORE Total number of steps: 12 DRESSING - LOWER BODY - STEP 1: Does the patient require help from a person or device, or need extra time when dressing below the meek st? Yes. DRESSING - LOWER BODY - STEP 2: Does the patient require the assistance of a helper? Yes. DRESSING - LOWER BODY - STEP 3: Does the helper touch the patient while dressing? Yes. DRESSING - LOWER BODY - STEP 4: How many of the total steps does the patient complete on his/her own? 2 DRESSING - LOWER BODY - STEP 5: Does patient require total assistance for dressing below the waist such as the helper holding clothin g and performing basically all the activities? Yes. DRESSING - LOWER BODY - SCORE: 1-DEP TOILETING: TOILETING - STEP 1: Does the patient require the assistance of a person or device, or need extra time with toileting? Yes . TOILETING - STEP 2: Does the patient require the assistance of a helper? Yes. TOILETING - STEP 3: How much assistance does the patient require from the helper? Hands-on assistance from the helper TOILETING - STEP 4: Of the 3 tasks: 1) Adjusting clothing prior to use, 2) Cleansing of perineal area, 3) Adjusting clot stephenie after use; How many tasks does the patient perform WITHOUT assistance of the helper? One task TOILETING - SCORE: 2-MAX BLADDER MANAGEMENT: [place] removes incontinent device (Depends, pull ups, etc.); cleans the patient after accident / inco ntinent episode; and, applies new incontinent device. BLADDER MANAGEMENT - SCORE: 1-DEP BLADDER MANAGEMENT - FREQUENCY OF ACCIDENTS: BLADDER MANAGEMENT(FA) - STEP 1: How many accidents has the patient had during the current shift? 5 BOWEL MANAGEMENT: BOWEL MANAGEMENT - STEP 1: Does the patient control bowels completely and intentionally without equipment devices or medications AND is always continent? No. BOWEL MANAGEMENT - STEP 2: Does the patient require the assistance of a helper? Yes. BOWEL MANAGEMENT - STEP 3: How much assistance does the patient require from the helper? Patient requires supervision, stand by, cueing, coaxing, or setup of equipment - placing within reach of patient and emptying device / bedpa nd or BSC bucket - to maintain either satisfactory bowel pattern or managing an external device such as an absorbent pad, colostomy bag / ileostomy bag BOWEL MANAGEMENT - SCORE: 5-SUP BOWEL MANAGEMENT - FREQUENCY OF ACCIDENTS: BOWEL MANAGEMENT(FA) - STEP 1: How many accidents has the patient had during the current shift? 0 TRANSFERS: BED, CHAIR, WHEELCHAIR: TRANSFERS: BED, CHAIR, WHEELCHAIR - STEP 1: Does the patient require assistance of a person or device, or need extra time with bed, chair, or whe elchair transfers? Yes. TRANSFERS: BED, CHAIR, WHEELCHAIR - STEP 2: Does the patient require the assistance of a helper? Yes. TRANSFERS: BED, CHAIR, WHEELCHAIR - STEP 3: How much assistance does the patient require from the helper? Lifting of the legs TRANSFERS: BED, CHAIR, WHEELCHAIR - STEP 4: How many legs does the patient require the helper to lift? one leg TRANSFERS: BED, CHAIR, WHEELCHAIR - SCORE: 4-MIN TRANSFERS: TOILET: TRANSFERS: TOILET - STEP 1: Does the patient require the assistance of a person or device, or need extra time with toilet transfe rs? Yes. TRANSFERS: TOILET - STEP 2: Does the patient require the assistance of a helper? Yes. TRANSFERS: TOILET - STEP 3: How much assistance does the patient require from the helper? Patient performs less than half of the transferring tasks TRANSFERS: TOILET - STEP 4: Does the patient require total assistance for the toilet transfer such as the helper doing basically all the lifting? Yes. TRANSFERS: TOILET - SCORE: 1-DEP TRANSFERS: SHOWER: Activity did not occur on this shift TRANSFERS: SHOWER - SCORE: 0-UNK TRANSFERS: TUB: Activity did not occur on this shift TRANSFERS: TUB - SCORE: 0-UNK LOCOMOTION: WALK: Activity did not occur on this shift LOCOMOTION: WALK - SCORE: 0-UNK LOCOMOTION: WHEELCHAIR: Activity did not occur on this shift LOCOMOTION: WHEELCHAIR - SCORE: 0-UNK COMPREHENSION: COMPREHENSION: TYPE: Both COMPREHENSION - STEP 1: Does the patient require help from a person or device, or need extra time to understand complex and a bstract ideas (such as current events, finances, discharge planning, medical issues, relationships, e tc)? No. COMPREHENSION - STEP 2: Does the patient need extra time, require an assistive device (such as glasses for visual comprehensi on or a hearing aid for auditory comprehension) or does s/he have mild difficulty understanding compl ex and abstract information? Yes. COMPREHENSION - SCORE: 6-ROBBY EXPRESSION EXPRESSION: TYPE: Both EXPRESSION - STEP 1: Does the patient require help from a person or device, or need extra time expressing complex and abst ract ideas (such as current events, finances, discharge planning, medical issues, relationships, etc) ? Yes. EXPRESSION - STEP 2: Does the patient require help to express basic necessities or ideas (such as hunger, thirst, sleep, s afety, daily schedule, room location, or discomfort) half or more of the time? No. EXPRESSION - STEP 3: How often does the patient need help to express directions and conversation about basic needs? Less t watt 10% of the time EXPRESSION - SCORE: 5-SUP SOCIAL INTERACTION: SOCIAL INTERACTION - STEP 1: Does the patient require a helper to interact with others in social and therapeutic situations? Yes. SOCIAL INTERACTION - STEP 2: Does the patient interact appropriately half or more of the time? Yes. SOCIAL INTERACTION - STEP 3: How often does the patient need help to interact appropriately? Less than 10% of the time SOCIAL INTERACTION - SCORE: 5-SUP PROBLEM SOLVING: PROBLEM SOLVING - STEP 1: Does the patient need help from a person or device, or need extra time to solve complex problems such as managing a checking account or confronting interpersonal problems? No. PROBLEM SOLVING - STEP 2: Does the patient require extra time to make decisions or solve problems, OR does s/he have slight dif ficulty reading, initiating, or self-correcting in unfamiliar situations? Yes, patient needs extra ti me. PROBLEM SOLVING - SCORE: 6-ROBBY MEMORY: MEMORY - STEP 1: Does the patient need help from a person or device, or need extra time to remember frequently encount ered people, daily routines, and executing requests? No. MEMORY - STEP 2: Does the patient have slight difficulty recognizing frequently encountered people, daily routines, or executing requests without the need for repetition or using self-initiated or environmental cues to remember? Yes. MEMORY - SCORE: 6-ROBBY SIGNATURE PANEL: The following modified sections: Eating - Score, Grooming - Score, Bathing - Score, Dressing - Upper Body - Score, Dressing - Lower Body - Score, Toileting - Score, Bladder Management - Score, Bowel Man agement - Score, Transfers: Bed, Chair, Wheelchair - Score, Transfers: Toilet - Score, Transfers: Kayla wer - Score, Transfers: Tub - Score, Locomotion: Walk - Score, Locomotion: Wheelchair - Score, Compre hension - Score, Expression - Score, Social Interaction - Score, Problem Solving - Score, Memory - Sc ore were [electronically] signed by Candido [email or web address] on MonSep 26 2018 13:25:02 GMT-0600 ([facility] Standard Time)
--- NOTE | 2018-09-26 16:23 | FAST ---
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 Daniel Mane M.D. ADMISSION DIAGNOSIS: - Orthopaedic Disorders 08 - Unilateral Hip Fracture (08.11) RIGHT FEMORAL NECK FRACTURE. EATING: Activity did not occur on this shift EATING - SCORE: 0-UNK GROOMING: Activity did not occur on this shift GROOMING - SCORE: 0-UNK BATHING: Activity did not occur on this shift BATHING - SCORE: 0-UNK DRESSING - UPPER BODY: Activity did not occur on this shift Patient is not dressing in public clothing ARTICLES SCORE Total number of steps: 0 DRESSING - UPPER BODY - SCORE: 0-UNK DRESSING - LOWER BODY: Activity did not occur on this shift Patient is not dressing in public clothing ARTICLES SCORE Total number of steps: 0 DRESSING - LOWER BODY - SCORE: 0-UNK TOILETING: Activity did not occur on this shift TOILETING - SCORE: 0-UNK BLADDER MANAGEMENT: Activity did not occur on this shift BLADDER MANAGEMENT - SCORE: 7-IND BOWEL MANAGEMENT: Activity did not occur on this shift BOWEL MANAGEMENT - SCORE: 7-IND TRANSFERS: BED, CHAIR, WHEELCHAIR: TRANSFERS: BED, CHAIR, WHEELCHAIR - STEP 1: Does the patient require assistance of a person or device, or need extra time with bed, chair, or whe elchair transfers? Yes. TRANSFERS: BED, CHAIR, WHEELCHAIR - STEP 2: Does the patient require the assistance of a helper? Yes. TRANSFERS: BED, CHAIR, WHEELCHAIR - STEP 3: How much assistance does the patient require from the helper? Only supervision TRANSFERS: BED, CHAIR, WHEELCHAIR - SCORE: 5-SUP TRANSFERS: TOILET: Activity did not occur on this shift TRANSFERS: TOILET - SCORE: 0-UNK TRANSFERS: SHOWER: Activity did not occur on this shift TRANSFERS: SHOWER - SCORE: 0-UNK TRANSFERS: TUB: Activity did not occur on this shift TRANSFERS: TUB - SCORE: 0-UNK LOCOMOTION: WALK: LOCOMOTION: WALK - STEP 1: Does the patient need help from a person or device, or need extra time to walk 150 feet? Yes. LOCOMOTION: WALK - STEP 2: How much assistance does the patient require to walk a minimum of 150 feet? Only supervision, cuing, or coaxing LOCOMOTION: WALK - SCORE: 5-SUP LOCOMOTION: WHEELCHAIR: LOCOMOTION: WHEELCHAIR - STEP 1: Does the patient need help to go 150 feet in a wheelchair? No. LOCOMOTION: WHEELCHAIR - SCORE: 6-ROBBY LOCOMOTION: STAIRS: LOCOMOTION: STAIRS - STEP 1: Does the patient need help to go up and down 12 to 14 stairs? Yes. LOCOMOTION: STAIRS - STEP 2: How much assistance does the patient need from the helper to go a minimum of 12 to 14 stairs? The pat ient goes less than 12 stairs, but at least 4 stairs LOCOMOTION: STAIRS - SCORE: 2-MAX COMPREHENSION: COMPREHENSION - SCORE: 0-UNK EXPRESSION EXPRESSION - SCORE: 0-UNK SOCIAL INTERACTION: SOCIAL INTERACTION - SCORE: 0-UNK PROBLEM SOLVING: PROBLEM SOLVING - SCORE: 0-UNK MEMORY: MEMORY - SCORE: 0-UNK SIGNATURE PANEL: The following modified sections: Transfers: Bed, Chair, Wheelchair - Score, Transfers: Toilet - Score , Locomotion: Walk - Score, Locomotion: Wheelchair - Score, Locomotion: Stairs - Score were [electron ically] signed by Jacky Santoro PT on MonSep 26 2018 16:21:30 GMT-0600 (Central Standard Time)
--- NOTE | 2018-09-26 17:01 | R.PN ---
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 Pt denied any Shortness of Breath. Mr. 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 His right lower extremity spastic dorsiflexion is not likely due complications following surgery. 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 Pt denied any depression. Hgb 10.7, prealbumin 23.0, glucose 92-124. Ambulated 250' with standby assistance using left hemiwalker. He report improved mid back pain after his lidocaine pain patches have been replaced. VITAL SIGNS Temperature: 97.9 F SBP/DBP: 128/76 Pulse: 69 Resp: 16 MEDICATION ALLERGIES: Sulfa ENVIRONMENTAL ALLERGIES: None Known - Substance Allergies None Known - Other Allergies None Known NURSING: - Shower allowing shower - Skin care per protocol PRECAUTIONS: - Posterior Hip Precaution No adduction across midline No external rotation No hip flexion >90 degrees No internal rotation No wheel chair propulsion - Weight Bearing Precaution WBAT right LE ACTIVITIES OOB only with supervision THERAPIES: - Occupational Therapy Evaluate and Treat. - Physical Therapy Evaluate and Treat. PHYSICAL EXAM - Gen Alert and awake Lying in bed No apparent distress Oriented to: person, time, and place - Skin No breakdown No abnormalities - Eyes No abnormalities - ENMT No abnormalities - Neck No abnormalities - CVS RRR - Chest No abnormalities - Abd + bowel sounds - GI Soft Deferred - No abnormalities - Ext Right hip surgical site has good hemostasis. - MSK 3+/5 weakness in right lower extremity. 1/5 right upper extremity strength. - Neuro 4/5 strength right lower extremity. - Psych No abnormalities ASSESSMENT: Pt. is a 68 yo Right-handed white male.On 09/07/2018 he was admitted to [facility] with diagnosis RIGHT FEMORAL NECK FRACTURE.His impairment category is Orthopaedic Disorders 08 - Unilateral Hip Fracture (08.11).Pre-morbidly, Pt. was independent/mod-I in Sphincter Control, Transf ers Control, Communication, Social Cognition, Self-Care, and Locomotion; and he had good Sphincter Co ntrol.Currently, he has deficits of Endurance, Safety Awareness, Transfers Control, Balance, Self-Car e, and Locomotion.Pt. is now referred to [facility] for acute in-patient rehab ilitation in order to maximize patient's functional independence in activities of daily living, stren gth, ROM, and mobility.- Rehab Goal Patient has realistic goal of being discharged at assistance level 6-Henny to reside at Home with Fam liana/Relatives. MDM/PLAN: - Physical Therapy Decreased range of motion - to improve, our physical therapists will perform initial evaluation of p t's status upon admission and devise an individualized program for increasing patient's Range of William on. Gait dysfunction - to improve, our physical therapists will perform initial evaluation of pt's statu s upon admission and devise an individualized program for Gait Training, and Wheel Chair mobility Inability to transfer - to improve, our physical therapists will perform initial evaluation of pt's status upon admission and devise an individualized program for Bed mobility Need for home safety evaluation - to improve, our physical therapists will perform initial evaluatio n of pt's status upon admission and devise an individualized program for Home Evaluation Need in caregiver upon discharge - to improve, our physical therapists will perform initial evaluati on of pt's status upon admission and devise an individualized program for Caregiver Training New precaution - to improve, our physical therapists will perform initial evaluation of pt's status upon admission and devise an individualized program for Patient precaution education Poor balance - to improve, our physical therapists will perform initial evaluation of pt's status up on admission and devise an individualized program for Balance Training Poor endurance - to improve, our physical therapists will perform initial evaluation of pt's status upon admission and devise an individualized program for Endurance Training Weakness - to improve, our physical therapists will perform initial evaluation of pt's status upon a dmission and devise an individualized program for Aquatic Therapy, Neuromuscular Reeducation, and Str engthening Achieving independence - to improve, our physical therapists will perform initial evaluation of pt's status upon admission and devise an individualized program for Community Reintegration Activities - Occupational Therapy ADL deficits - to improve, our occupation therapists will perform initial evaluation of pt's status upon admission and devise an individualized program for Bathing, Bed mobility, Community Reintegratio n, Cooking, Dressing, Eating, Fine Motor Skills, Grooming, Homemaking, Kitchen Mobility, Laundry, Pat ient Education, Safety Awareness, Splinting - Positioning, Transfers(Toilet, Tub, Shower), and Wheel Chair Management Need for district manager primary care sales - to improve, our occupation therapists will perform initial evaluation of pt's status upon admission and devise an individualized program for Caregiver Training Weakness - to improve, our occupation therapists will perform initial evaluation of pt's status upon admission and devise an individualized program for Aquatic Therapy, Balance, Endurance, UE ROM, and UE strengthening - Anterior Hip Precaution No abduction No active extension No adduction across midline No external rotation No hip flexion >90 degrees No internal rotation - Diet - Liquid Texture Continue Regular - Tube Feed Continue N/A - Diet Type Continue Heart Healthy - Posterior Hip Precaution No adduction across midline No external rotation No hip flexion >90 degrees No internal rotation No wheel chair propulsion - Weight Bearing Precaution WBAT right LE - Skin care per protocol - Diet - Solid Texture Continue Regular - Shower allowing shower FUNCTIONAL STATUS: UPDATED AT WEEKLY TEAM CONFERENCE - Bladder Same accident frequency: 7-Ind - No accidents in the past 7 days - Bowel Same accident frequency: 7-Ind - No accidents in the past 7 days - Walking Same score based on distance walked: 0(N/A) - Wheelchair Same score based on distance traveled: 0(N/A) FUNCTIONAL STATUS: - Self-Care A. Eating sup B. Grooming sup C. Bathing sup D. Dressing - Upper sup E. Dressing - Lower Ruddy F. Toileting modA - Sphincter Control G: Bladder control Ind H: Bowel control Ind - Transfers Control I. Bed/Chair/Wheelchair modA J. Toilet modA K. Tub/Shower ADNO - Locomotion L. Walk/Wheelchair (C) modA L. Walk/Wheelchair (W) modA M. Stairs ADNO - Communication N. Comprehension (B) Henny O. Expression (B) Henny - Social Cognition P. Social Interaction Henny Q. Problem Solving Henny R. Memory Henny - Endurance Poor - Balance Poor - Safety Awareness Fair CURRENT FUNC. DEFICITS: Endurance, Safety Awareness, Transfers Control, Balance, Self-Care, and Locomotion SIGNATURE PANEL: ([facility])
--- NOTE | 2018-09-27 14:35 | FAST ---
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 Daniel Mane M.D. ADMISSION DIAGNOSIS: - Orthopaedic Disorders 08 - Unilateral Hip Fracture (08.11) RIGHT FEMORAL NECK FRACTURE. EATING: EATING - STEP 1: Does the patient require the assistance of a person or device, or need extra time when eating? No. EATING - SCORE: 7-IND GROOMING: Oral care Wash, rinse, and dry face Wash, rinse, and dry hands GROOMING - STEP 1: Does the patient require the assistance of a person or device, or need extra time when grooming? No. GROOMING - SCORE: 7-IND BATHING: Abdomen Buttocks Chest Left arm Left lower leg and foot Left upper leg Perineal area Right arm Right lower leg and foot Right upper leg BATHING - STEP 1: Does the patient require the assistance of a person or device, or need extra time when bathing? Yes. BATHING - STEP 2: Does the patient require the assistance of a helper? Yes. BATHING - STEP 3: How much assistance does the patient require from the helper? Only supervision, cuing, coaxing, instr uctions, encouragement BATHING - SCORE: 5-SUP DRESSING - UPPER BODY: T-shirt/pullover shirt (four steps) ARTICLES SCORE Total number of steps: 4 DRESSING - UPPER BODY - STEP 1: Does the patient require help from a person or device, or need extra time when dressing above the meek st? Yes. DRESSING - UPPER BODY - STEP 2: Does the patient require the assistance of a helper? No. Patient only requires an assistive device, s uch as a button hook, velcro, or core drilling supervisor. OR s/he takes more than reasonable time as s/he dresses the upper body. OR there is a concern for safety when s/he dresses the upper body DRESSING - UPPER BODY - SCORE: 6-ROBBY DRESSING - LOWER BODY: Elastic waist pants (three steps) Sock - Left foot (one step) Sock - Right foot (one step) Tied or buckled shoe - Left foot (two steps) Tied or buckled shoe - Right foot (two steps) Underwear (three steps) ARTICLES SCORE Total number of steps: 12 DRESSING - LOWER BODY - STEP 1: Does the patient require help from a person or device, or need extra time when dressing below the meek st? Yes. DRESSING - LOWER BODY - STEP 2: Does the patient require the assistance of a helper? Yes. DRESSING - LOWER BODY - STEP 3: Does the helper touch the patient while dressing? Yes. DRESSING - LOWER BODY - STEP 4: How many of the total steps does the patient complete on his/her own? 10 DRESSING - LOWER BODY - SCORE: 4-MIN TOILETING: TOILETING - STEP 1: Does the patient require the assistance of a person or device, or need extra time with toileting? Yes . TOILETING - STEP 2: Does the patient require the assistance of a helper? Yes. TOILETING - STEP 3: How much assistance does the patient require from the helper? Only supervision TOILETING - SCORE: 5-SUP BLADDER MANAGEMENT: Activity did not occur on this shift BLADDER MANAGEMENT - SCORE: 7-IND BOWEL MANAGEMENT: Activity did not occur on this shift BOWEL MANAGEMENT - SCORE: 7-IND TRANSFERS: BED, CHAIR, WHEELCHAIR: Activity did not occur on this shift TRANSFERS: BED, CHAIR, WHEELCHAIR - SCORE: 0-UNK TRANSFERS: TOILET: TRANSFERS: TOILET - STEP 1: Does the patient require the assistance of a person or device, or need extra time with toilet transfe rs? Yes. TRANSFERS: TOILET - STEP 2: Does the patient require the assistance of a helper? Yes. TRANSFERS: TOILET - STEP 3: How much assistance does the patient require from the helper? Patient performs half or more of the tr ansferring tasks TRANSFERS: TOILET - STEP 4: Does the patient need only incidental help such as contact guard or steadying during toilet transfer? Yes. TRANSFERS: TOILET - SCORE: 4-MIN TRANSFERS: SHOWER: TRANSFERS: SHOWER - STEP 1: Does the patient require the assistance of a person or device, or need extra time with shower transfe rs? Yes. TRANSFERS: SHOWER - STEP 2: Does the patient require the assistance of a helper? Yes. TRANSFERS: SHOWER - STEP 3: How much assistance does the patient require from the helper? Only incidental help such as contact gu arding or steadying during shower transfers, or help to lift one leg into the shower TRANSFERS: SHOWER - SCORE: 4-MIN TRANSFERS: TUB: Activity did not occur on this shift TRANSFERS: TUB - SCORE: 0-UNK LOCOMOTION: WALK: Activity did not occur on this shift LOCOMOTION: WALK - SCORE: 0-UNK LOCOMOTION: WHEELCHAIR: Activity did not occur on this shift LOCOMOTION: WHEELCHAIR - SCORE: 0-UNK LOCOMOTION: STAIRS: Activity did not occur on this shift LOCOMOTION: STAIRS - SCORE: 0-UNK COMPREHENSION: COMPREHENSION: TYPE: Both COMPREHENSION - STEP 1: Does the patient require help from a person or device, or need extra time to understand complex and a bstract ideas (such as current events, finances, discharge planning, medical issues, relationships, e tc)? No. COMPREHENSION - STEP 2: Does the patient need extra time, require an assistive device (such as glasses for visual comprehensi on or a hearing aid for auditory comprehension) or does s/he have mild difficulty understanding compl ex and abstract information? Yes. COMPREHENSION - SCORE: 6-ROBBY EXPRESSION EXPRESSION: TYPE: Both EXPRESSION - STEP 1: Does the patient require help from a person or device, or need extra time expressing complex and abst ract ideas (such as current events, finances, discharge planning, medical issues, relationships, etc) ? No. EXPRESSION - STEP 2: Does the patient need extra time, require an assistive device (such as augmentive communication syste m or a communication board), OR does s/he have mild difficulty expressing complex and abstract ideas (including mild dysarthria or mild word-find problems)? Yes. EXPRESSION - SCORE: 6-ROBBY SOCIAL INTERACTION: SOCIAL INTERACTION - STEP 1: Does the patient require a helper to interact with others in social and therapeutic situations? No. SOCIAL INTERACTION - STEP 2: Does the patient need extra time in social situations, OR does s/he interact with staff, other patien ts, and family members ONLY in structured environments, OR does s/he require medication for social in teraction? Yes, patient requires medication for social interaction SOCIAL INTERACTION - SCORE: 6-ROBBY PROBLEM SOLVING: PROBLEM SOLVING - STEP 1: Does the patient need help from a person or device, or need extra time to solve complex problems such as managing a checking account or confronting interpersonal problems? Yes. PROBLEM SOLVING - STEP 2: Does the patient solve basic routine problems half or more of the time? Yes. PROBLEM SOLVING - STEP 3: How often does the patient need help to solve basic routine problems? Less than 10% of the time PROBLEM SOLVING - SCORE: 5-SUP MEMORY: MEMORY - STEP 1: Does the patient need help from a person or device, or need extra time to remember frequently encount ered people, daily routines, and executing requests? Yes. MEMORY - STEP 2: How often does the patient need help to remember frequently encountered people, daily routines, and e xecuting requests? Less than 10% of the time MEMORY - SCORE: 5-SUP SIGNATURE PANEL: The following modified sections: Eating - Score, Grooming - Score, Bathing - Score, Dressing - Upper Body - Score, Dressing - Lower Body - Score, Toileting - Score, Transfers: Bed, Chair, Wheelchair - S core, Transfers: Toilet - Score, Transfers: Tub - Score, Transfers: Shower - Score, Comprehension - S core, Expression - Score, Social Interaction - Score, Problem Solving - Score, Memory - Score were [e lectronically] signed by Melissa Shelton OT on MonSep 27 2018 14:34:52 GMT-0600 (Central Standard T madeleine)
--- NOTE | 2018-09-28 06:21 | DS ---
Date of Discharge: 09/26/2018 Disposition: Discharged to go to [facility]. Physical Examination: HEENT: Unremarkable. Lungs: Clear to auscultation. Heart: Sounds normal. Abdomen: Soft, bowel sounds normal. No guarding, rigidity, tenderness, or distention. Extremities: No leg edema. Discharge Medications And Instructions: See copy of discharge order for details. Laboratory Data: Last CBC from 09/20/2018, white count 5.9, hemoglobin 10.7, platelets 394. Last chemistry from 09/20/2018, sodium 140, potassium 3.9, chloride 106, bicarb 28, BUN 18, creatinine 0.88, glucose 92. The patient's serum protein and immunoelectrophoresis were unremarkable. Serum immunoglobulin levels were normal. Hospital Course: This is a 68-year-old male patient who was admitted to rehab floor after his admission to medical floor for hip fracture. The patient had surgery for hip fracture. Postoperatively, he was stable and was brought to rehab floor. His condition in rehab remained stable. He received initially IV antibiotic for his aspiration pneumonia. It was Zosyn and subsequently it was changed to oral antibiotics, and we discontinued his oral antibiotics last weekend. Physical therapy was provided under guidance of Dr. Mane. Chest x -ray showed improvement in his pneumonia problem. His other usual home medications were continued. DVT prophylaxis was given using Lovenox. He had some constipation problem which was addressed with stool softener and laxatives. He was complaining of some pain in his right arm, so we did obtain x -ray of the right humerus and radiologist saw some abnormality of the right proximal humerus, so recommended to have x-ray of the left humerus for comparison, and serum protein immunoelectrophoresis and serum immunoglobulin level were ordered which was all unremarkable. No evidence of multiple myeloma and I believe that abnormality that radiologist has mentioned in the right humerus is likely due to lack of use of the right upper extremity because this is his weak side as a result of stroke. No fracture noted. The patient had 2 falls within 6 weeks prior to this hospital admission and the second fall had resulted in this hip fracture. He does not feel comfortable going home, and patient's both daughters and son, they all agreed along with the patient for him to go to assisted facility, so Social Service on the rehab floor made arrangements for him to go to assisted facility, and once arrangements completed, he was discharged to go home today in stable condition. Final Diagnoses: 1. Right hip femoral neck fracture. 2. Aspiration pneumonia. 3. Constipation. 4. Acute blood loss anemia. 5. Insomnia. 6. Hypertension. 7. Hyperlipidemia. 8. Stroke with right-sided hemiparesis. 9. Coronary artery disease. 10. Paroxysmal atrial fibrillation. DAWNA/SEBASTIAN Voice ID: [id number] Report ID: [id number]
== END 2018-09-26 17:45 | DRG 559 ==
LOC: 5TH 19:11
PROVIDERS: ADMIT Internal Medicine; ATTEND Internal Medicine
DX: S72.001D Fracture of unspecified part of neck of right femur, subsequent encounter for closed fracture with routine healing (principal); J69.0 Pneumonitis due to inhalation of food and vomit; D62 Acute posthemorrhagic anemia; I69.351 Hemiplegia and hemiparesis following cerebral infarction affecting right dominant side; I10 Essential (primary) hypertension; I48.0 Paroxysmal atrial fibrillation; E03.9 Hypothyroidism, unspecified; G47.30 Sleep apnea, unspecified; K21.9 Gastro-esophageal reflux disease without esophagitis; F32.9 Major depressive disorder, single episode, unspecified; E78.5 Hyperlipidemia, unspecified; G47.00 Insomnia, unspecified; K59.00 Constipation, unspecified; M21.371 Foot drop, right foot
CPT/HCPCS: 36415; 71045; 80048; 81001; 82040; 82784; 82962; 83735; 84134; 84165; 85025; 86334; 87086; 87088; 92507; 92523; 97110; 97112; 97116; 97150; 97163; 97167; 97530; 97542; J1650; J2543

== ENCOUNTER 2018-11-15 17:34 | Emergency (ER) | payer OTHER, BC ==
--- OUTSIDE RECORDS SUMMARY | 2018-11-15 17:37 | XMS REPORT | Clinical Summary ---
:1950 Author Organization [facility] Address [address] [place] [address] Care Team Providers Name Role Phone Drew [...] (three) times a day for 90 days. cyanocobalamin 100 MCG Take 100 mcg by 0 Discontinued tablet mouth daily. 018 dextrose 50% syringe Infuse 25 mL 0 09/07/19 Discontinued (12.5 g total) 18 018 into a venous catheter as needed (If blood glucose is 40 mg/dL or LESS). polyethylene glycol Take 17 g by 30 [...] a venous catheter daily for 30 days. aspirin 81 mg chewable Chew 1 tablet 30 tablet 0 09/08/19 Discontinued tablet (81 mg total) 18 018 daily for 30 days. potassium chloride Take 1 capsule 30 capsule 0 09/08/19 Discontinued (MICRO-K) 10 MEQ CR (10 mEq total) 18 018 capsule by mouth daily for 30 days. doxazosin [...] S/P AVR 08/17/2017 Coronary artery disease involving emmonak coronary artery of emmonak heart 08/17 without angina pectoris Post-op pain 08/17/2017 Acute postoperative pulmonary insufficiency, Ventilator dependent, post 2017 tracheostomy Encounters Date Type Specialty Care Team Description 08/31/2018 Refill Physical Medicine and Casimiro, Marlena Bhardwaj MA 07/04/2018 Clinical Support Physical Medicine and Telma Ramos Right spastic hemiparesis (HCC) (Primary Dx); Rehabilitation MD Kayce BOUBACAR (obstructive sleep apnea); Aphasia as late effect of cerebrovascular accident; Spasticity; Neurogenic bladder; Right foot drop; Late effect of stroke 04/03/2018 Clinical Support Physical Medicine and Telma Ramos Right spastic hemiparesis (Primary Dx); Rehabilitation MD Kayce BOUBACAR (obstructive sleep apnea); Aphasia as late effect of cerebrovascular accident; Spasticity; Neurogenic bladder; Late effect of stroke; Right foot drop 01/23/2018 Office Visit Physical Medicine and Telma Ramos (obstructive sleep apnea) (Primary Dx); Rehabilitation MD Kayce Right spastic hemiparesis; Spasticity; Late effect of stroke; Right foot drop; Neurogenic bladder; Aphasia as late effect of cerebrovascular accident 12/26/2017 Clinical Support Physical Medicine and Telma Ramos Right spastic hemiparesis (Primary Dx); Rehabilitation MD Kayce BOUBACAR (obstructive sleep apnea); Spasticity; Late effect of stroke; Right foot drop; Neurogenic bladder; Aphasia as late effect of cerebrovascular accident 12/13/2017 Office Visit Physical Medicine and Telma Ramos Late effect of stroke (Primary Dx); Rehabilitation MD Kayce Right spastic hemiparesis; Aphasia as late effect of cerebrovascular accident; BOUBACAR (obstructive sleep apnea); Right foot drop; Spasticity; Neurogenic bladder 10/09/2017 - Hospital Rehabilitation Samina Mc Right hemiparesis ( Primary Dx); 11/17/2017 Pricilla Flynn MD Aphasia as late effect of cerebrovascular accident; Neurogenic bladder; Cerebrovascular accident (CVA), unspecified mechanism; Coronary artery disease involving emmonak coronary artery of emmonak heart without angina pectoris after 11/14/2017 Immunizations Name Dates Previously Given Next Due [...] Taken Blood Pressure 100/77 07/04/2018 1:39 PM ELECTRONICS MECHANIC APPRENTICE Pulse 64 07/04/2018 1:39 PM ELECTRONICS MECHANIC APPRENTICE Temperature 36.3 C (97.4 F) 11/17/2017 11:25 AM CDT Respiratory Rate 16 11/17/2017 11:25 AM CDT Oxygen Saturation 99% 11/17/2017 11:25 AM CDT Inhaled Oxygen Concentration - - Weight 77.3 kg (170 lb 6.4 oz) 11/17/2017 4:56 AM CDT Height - - Body Mass Index 25.91 11/17/2017 4:56 AM CDT Plan of Treatment Health Maintenance Due Date Last Done Comments SHINGLES VACCINES (#1) 1999 PNEUMOCOCCAL POLYSACCHARIDE VACCINE AGE 65 2014 AND OVER 65+ PNEUMOCOCCAL VACCINE (2 of 2 - PPSV23) 09/07/2018 09/07/2017 INFLUENZA VACCINE 03/07/2019 09/07/2017, 08/24/2017 COLON CANCER SCREENING 09/09/2027 09/09/2017 Implants Implanted Type Area Lacing Operator Device Shelf Model / Identifier Expiration Serial / Date Lot Valve Aortic Hemo Peric Tiss W/Goodwin Tech Cuff 23mm Trifecta - [id number] - [id number] Cardiovascular N/A: [facility] JORDAN 02/12/2021 TFGT [id number] / Implanted: Qty: 1 on 08/17/2017 by Bakari Elias MD Implants Heart STRUCTURAL [id number] / HEART [id number] Clip Ligtng Weck Hemoclip Plus W/ Tape Ti Med - [id number] Medical Clips for N /A: N/A TELEFLEX [id number] / Implanted: 08/17/2017 (Quantity not on file) Internal Use MEDICAL / Clip Ligtng Weck Hemoclip Plus W/ Tape Ti Sm Strngpnt - [id number] Medical Clips for N/A: N/A WECK CLOSURE [id number] / Implanted: 08/17/2017 (Quantity not on file) Internal Use SYSTEMS / Clip Ligtng Weck Hemoclip Plus W/ Tape Ti Med - [id number] Medical Clips for N /A: N/A TELEFLEX [id number] / Implanted: 08/24/2017 (Quantity not on file) Internal Use MEDICAL / Patch Biosurg Selnt Fibrin Absrbl 9.5x4.8cm Tachosil - [id number] Surgical N/A : N/A JACK [id number] / Implanted: 08/17/2017 (Quantity not on file) Implants; BIOSCIENCE / Expanders; Extenders; Surgical Wires Patch Biosurg Selnt Fibrin Absrbl 9.5x4.8cm Tachosil - [id number] Surgical N/A : N/A JACK [id number] / Implanted: 08/17/2017 (Quantity not on file) Implants; BIOSCIENCE / Expanders; Extenders; Surgical Wires Patch Biosurg Selnt Fibrin Absrbl 9.5x4.8cm Tachosil - [id number] Surgical N/A : N/A JACK [id number] / Implanted: 08/17/2017 (Quantity not on file) Implants; BIOSCIENCE / Expanders; Extenders; Surgical Wires Kaiser Perph Vasclr Ptfe 1.2x10cm 1.65mm - [id number] Vascular Graft N/A: N/A BARD PERIPHERAL 02/01/2022 [id number] / Implanted: 08/17/2017 (Quantity not on file) VASCULAR / [id number] Kaiser Perph Vasclr Ptfe 1.2x10cm 1.65mm - [id number] Vascular Graft N/A: N/A BARD PERIPHERAL 06/03/2022 [id number] / Implanted: 08/17/2017 (Quantity not on file) VASCULAR / [id number] Explanted Type Area Lacing Operator Device Shelf Model / Identifier Expiration Serial / Date Lot Lead Pace Galileo Mycrdl Unipol Tmpry Streamline - [id number] Cardiovascular N/A : [employer] [place] - [id number] / Implanted: 08/17/2017 (Quantity not on file) Implants N/A CARDIAC SRGRY / Lead Pace Galileo Mycrdl Unipol Tmpry Streamline - [id number] Cardiovascular N/A : [employer] [place] - [id number] / Implanted: 08/17/2017 (Quantity not on file) Implants N/A CARDIAC SRGRY / Procedures Procedure Name Priority Date/Time Associated Comments Diagnosis UT NEEDLE EMG GUIDANCE Routine 07/04/2018 1:15 Right spastic Results for this FOR CHEMODENERVATION PM ELECTRONICS MECHANIC APPRENTICE hemiparesis (HCC) procedure are in the results section. UT CHEMODENERVATION 1 Routine 07/04/2018 1:15 Right spastic Results for this EXTREMITY 5 OR MORE PM ELECTRONICS MECHANIC APPRENTICE hemiparesis (HCC) procedure are in MUSCLES the results section. UT NEEDLE EMG GUIDANCE Routine 04/03/2018 1:00 Right spastic Results for this FOR CHEMODENERVATION PM CDT hemiparesis procedure are in the results section. UT CHEMODENERVATION 1 Routine 04/03/2018 1:00 Right spastic Results for this EXTREMITY 5 OR MORE PM CDT hemiparesis procedure are in MUSCLES the results section. UT NEEDLE EMG GUIDANCE Routine 12/26/2017 1:15 Right spastic Results for this FOR CHEMODENERVATION PM CDT hemiparesis procedure are in the results section. UT CHEMODENERVATION ONE Routine 12/26/2017 1:15 Right spastic Results for this EXTREMITY 1-4 MUSCLE PM CDT hemiparesis procedure are in the results section. PROTHROMBIN TIME WITH Routine 11/16/2017 4:20 Results for this INR AM CDT procedure are in the results section. after 11/14/2017 Results Botulinum Injection (07/04/2018 1:15 PM ELECTRONICS MECHANIC APPRENTICE) Narrative Performed At Telma Ramos MD 07/04/20185:28 PM Botulinum Injection Date/Time: 07/04/2018 1:47 PM Performed by: Telma Ramos MD Authorized by: Telma Ramos MD Consent: Consent obtained:Written Consent given by:Patient Risks discussed:Bleeding, excessive weakness, muscle atrophy, venous thrombosis and pain and discomfort Benefits discussed:Decreased muscle tightness, increased joint range of motion and decreased pain Siler protocol: Procedure explained and questions answered to [...] No Procedure details: Agent Botulinum Toxin:Dysport (lot [id number] exp 01/04/2019) Total Units Injected:1500 Dysport Medications [...] 1:00 PM CDT) Narrative Performed At Telma Ramos MD 04/03/20182:23 PM Botulinum Injection Date/Time: 04/03/2018 1:16 PM Performed by: TELMA RAMOS Authorized by: TELMA RAMOS Consent: Consent obtained:Written Consent given by:Patient Risks discussed:Bleeding, excessive weakness, muscle atrophy, venous thrombosis and pain and discomfort Benefits discussed:Decreased muscle tightness, increased joint range of motion and decreased pain Siler protocol: Procedure explained and questions answered to [...] 1:15 PM CDT) Narrative Performed At Telma Ramos MD 12/26/20172:38 PM Botulinum Injection Date/Time: 12/26/2017 1:27 PM Performed by: TELMA RAMOS Authorized by: TELMA RAMOS Consent: Consent obtained:Written Consent given by:Patient Risks discussed:Bleeding, excessive weakness, muscle atrophy, venous thrombosis and pain and discomfort Benefits discussed:Decreased muscle tightness, increased joint range of motion and decreased pain Siler protocol: Procedure explained and questions answered to [...] Prothrombin time with INR (11/16/2017 4:20 AM CDT) Prothrombin time 24.8 (H) 12.0 - 15.0 sec [facility] DEPARTMENT OF PATHOLOGY AND GENOMIC MEDICINE INR 2.2 [facility] DEPARTMENT OF Comment: PATHOLOGY AND GENOMIC The International Normalized Ratio (INR) is a therapeutic MEDICINE monitoring tool for patients who are stable on oral anticoagulant therapy. An INR of 2.0-3.0 is suggested for deep vein thrombosis/pulmonary embolism. Specimen Blood Performing Organization Address City/State/Zipcode Phone Number [facility] DEPARTMENT OF PATHOLOGY AND [address] [place] [address] GENOMIC MEDICINE after 11/14/2017 Insurance Payer Benefit Plan / Group Subscriber ID Type Phone Address MEDICARE MEDICARE PART A AND B xxxxxxxxxx Medicare [place], [place] BCBS BCBS PAR/TRAD PLAN xxxxxxxxxxxx Indemnity Advance Directives Patient has advance care planning documents on file. For more information, please contact:Alonso Garza[address] [place] [address]
--- OUTSIDE RECORDS SUMMARY | 2018-11-15 17:37 | XMS REPORT | Continuity of Care Document ---
:1950 Author Organization Interface Problems Problem Status Onset Date Classification Date Comments Source Reported Medications Medication Details Route Status Patient Ordering Order Source Instructions Provider Date Allergies, Adverse Reactions, Alerts Substance Category Reaction Severity Reaction Status Date Comments Source type Reported Sulfa Rash Allergy to Active [facility] St[facility] (Sulfonamid Substance 8 [facility] [place] [facility] ) Immunizations Immunization Date Given Site Status Last Updated Comments Source Results Order Name Results Value Reference Date Interpretation Comments Source Range Laboratory Sodium Level 137 135 - 145 08/[address] [facility] Studies mEq/L /2017 [facility] [place] [facility] Potassium Level 4.0 3.6 - 5.0 08/[address] [facility] [facility] mEq/L /2017 [facility] [place] [facility] Glucose Level 111 65 - 120 08/[address] [facility] [address] Studies mg/dL /2017 [facility] [place] [facility] Estimat 79 90 08/[address] [facility] [address] Studies Glomerular mL/min /2017 [facility] Filtration Rate [place] [facility] Creatinine 0.95 0.61 - 08/[address] [facility] [address] Studies mg/dL 1.24 [facility] [place] [facility] Chloride Level 103 101 - 111 08/[address] [facility] [address] [facility] mEq/L /2017 [facility] [place] [facility] Carbon Dioxide 28 mEq/L 21 - 31 08/[address] [facility] [address] [facility] Level /2017 [facility] [place] [facility] Calcium Level 9.8 8.5 - 10.5 08/[address] [facility] [facility] mg/dL /2017 [facility] [place] [facility] Blood Urea 19 mg/dL 6 - 20 08/[address] [facility] [facility] Nitrogen /2017 [facility] [place] [facility] Prothrombin 11.9 9.5 - 12.5 08/[address] [facility] [address] [facility] Time SECONDS /2017 [facility] [place] [facility] INR 1.01 08/[address] [facility] [facility] International /2017 [facility] Normalized [place] Ratio [facility] Activated 31.5 24.3 - 08/[address] [facility] [address] Studies Partial SECONDS 36.9 [facility] Thromboplast [place] Time Laboratory White Blood 6.2 K/uL 4.3 - 10.9 08/10 [facility] [address] Studies Count /2017 [facility] [place] [facility] Red Cell 13.3 % 12.1 - 08/[address] [facility] [address] Studies Distribution 15.2 /2017 [facility] Width [place] [facility] Red Blood Count 5.07 4.33 - [address] [facility] [address] Studies M/uL 5.43 /2017 [facility] [place] [facility] Platelet Count 279 K/uL 152 - 406 08/[address] [facility] [address] Studies /2017 [facility] [place] [facility] Neutrophils % 61.2 % 41.7 - 08/10 [facility] [address] Studies 73.7 /2017 [facility] [place] [facility] Monocytes % 8.6 % 3.3 - 12.3 08/10 [facility] [address] Studies /2017 [facility] [place] [facility] Mean Platelet 8.7 fL 7.6 - 11.3 08/[address] [facility] [address] Studies Volume /2017 [facility] [place] [facility] Mean 87.1 fL 80 - 100 08/[address] [facility] [address] Studies Corpuscular /2017 [facility] Volume [place] [facility] Mean 33.8 32.0 - 08/10 [facility] [address] Studies Corpuscular g/dL 36.0 /2017 [facility] Hemoglobin [place] [facility] Mean 29.4 pg 27.0 - 08/10 [facility] [address] Studies Corpuscular 35.0 /2017 [facility] Hemoglobin [place] [facility] Lymphocytes % 26.2 % 15.3 - 08/10 [facility] [address] Studies 44.8 /2017 [facility] [place] [facility] Hemoglobin 14.9 13.6 - 08/10 [facility] [address] Studies g/dL 17.9 /2017 [facility] [place] [facility] Hematocrit 44.2 % 39.6 - 08/10 [facility] [address] Studies 49.0 /2017 [facility] [place] [facility] Eosinophils % 3.2 % 0 - 4.4 08/10 [facility] [address] Studies /2017 [facility] [place] [facility] Basophils % 0.8 % 0 - 1.3 08/10 [facility] [address] Studies /2017 [facility] [place] [facility] Absolute 3.8 K/uL 1.8 - 8.0 08/10 [facility] [address] Studies Neutrophil /2017 [facility] [place] [facility] Absolute 0.5 K/uL 0.1 - 1.3 08/10 [facility]. Studies Monocytes (CBC) /2017 [facility] [place] [facility] Absolute 1.6 K/uL 0.7 - 4.9 08/[address] [facility] [address] Studies Lymphocytes /2017 [facility] (CBC) [place] [facility] Absolute 0.2 K/uL 0 - 0.5 08/10 [facility] [address] Studies Eosinophils /2017 [facility] (CBC) [place] [facility] Absolute 0.0 K/uL 0 - 0.5 08/10 [facility] [address] Studies Basophils (CBC) /2017 [facility] Vital Signs Vital Sign Value Date Comments Source Heart Rate 83 08/11/[address] [facility] [address] [facility] Resp[facility] 15 [facility] Systolic [facility]mm Hg) 120 08/11/2017 [facility] Diastolic (mm Hg) 81 08/11/2017 [facility] Temperature Oral (F) 97.7 F [facility]/11[facility] 68 08/10/2017 [facility] Weight 200.00 08/10/2017 [facility] Encounters Location Location Encounter Encounter Reason Attending ADM DC Status Source Details Type Number For Provider Date Date Visit MATTHEW Mccormick Departed [id number] 08/11 08/[address] [facility] Procedures Procedure Code Date Perfomer Comments Source
--- NOTE | 2018-11-15 19:27 | ER ---
Nurse's Notes [facility] Name: Erick Rodriguez Age: 68 yrs Sex: Male : 1950 Arrival Date: 11/15/2018 Time: 17:37 Bed 25 Private MD: Sharad Stewart C Diagnosis: Muscle spasm of back Presentation: 11/15 17:52 Presenting complaint: Patient states: back pain/spasms x 1 day. Is getting PT for a sv CVA. Son reports that his sister stated she noticed the pt started having slurred speech since Monday and has been declining a little bit since then. Transition of care: patient was not received from another setting of care. Onset of symptoms was November 14, 2018. Care prior to arrival: None. 17:52 Method Of Arrival: Wheelchair sv 17:52 Acuity: CRISS 3 sv 18:05 Risk Assessment: Do you want to hurt yourself or someone else? Patient reports no ca1 desire to harm self or others. Initial Sepsis Screen: Does the patient meet any 2 criteria? No. Patient's initial sepsis screen is negative. Does the patient have a suspected source of infection? No. Patient's initial sepsis screen is negative. Historical: - Allergies: 18:00 Sulfa (Sulfonamide Antibiotics); sv - PMHx: 18:00 Aortic valve replacement (cow); CVA; Hyperlipidemia; Hypertension; sv - Immunization history:: Flu vaccine is up to date. - Social history:: Smoking status: Patient/guardian denies using tobacco. - Ebola Screening: : No symptoms or risks identified at this time. Screenin:05 Abuse screen: Denies threats or abuse. Denies injuries from another. Nutritional ca1 screening: No deficits noted. Tuberculosis screening: No symptoms or risk factors identified. Fall Risk Fall in past 12 months (25 points). Secondary diagnosis (15 points) CVA, Ambulatory Aid- None/Bed Rest/Nurse Assist (0 pts). Gait- Impaired (20 pts.). Assessment: 18:05 General: Appears in no apparent distress. comfortable, Behavior is calm, cooperative, ca1 appropriate for age. Pain: Complains of pain in back Pain currently is 10 out of 10 on a pain scale. Pain began 2-3 days ago. Neuro: Level of Consciousness is awake, alert, obeys commands, Oriented to person, place, time, situation. Cardiovascular: Heart tones S1 S2 present Capillary refill < 3 seconds Patient's skin is warm and dry. Respiratory: Airway is patent Respiratory effort is even, unlabored, Respiratory pattern is regular, symmetrical, Breath sounds are clear bilaterally. GI: Abdomen is round non-distended, Bowel sounds present X 4 quads. Abd is soft and non tender X 4 quads. : No signs and/or symptoms were reported regarding the genitourinary system. EENT: No signs and/or symptoms were reported regarding the EENT system. Derm: Skin is intact, is healthy with good turgor, Skin is pink, warm \T\ dry. Musculoskeletal: Circulation, motion, and sensation intact. Capillary refill < 3 seconds, Range of motion: limited in right shoulder, right hip, right knee and right ankle. 18:37 Reassessment: Change pt briefs and clothes after soaking briefs and clothes with urine. ca1 Pt is incontinent after the stroke 1 year ago. 19:45 Reassessment: Son requested to stay until sister gets here to bring pt's clothes. ca1 20:10 Reassessment: Son states they can go home with pt's gown and will not wait for sister ca1 anymore. Moved pt from bed to wheelchair with son. Pt complains of a lot pain. grimacing observed, and pt urinated on wheelchair with briefs due to pain of repositioning. Informed PALAK Sparks. Instructed to wait 15 more minutes to observe for pain meds to work. Also, informed PALAK Sparks for increase blood pressure of pt. 20:25 Reassessment: Informed PALAK Sparks on pt's medications scheduled at this time including ca1 BP meds. Let pt take scheduled meds. 20:30 Reassessment: Patient appears in no apparent distress at this time. Patient is alert, ca1 oriented x 3, equal unlabored respirations, skin warm/dry/pink. Assisted pt to stand from wheelchair to wipe wheelchair dry, fix briefs and pads on wheelchair. PT reports less pain that is tolerable and pain medication has kicked in. Vital Signs: 18:00 BP 167 / 98; Pulse 88; Resp 16; Temp 98.8; Pulse Ox 100% ; sv 18:33 BP 157 / 93; Pulse 72; Resp 18 S; Pulse Ox 97% on R/A; ca1 18:45 BP 156 / 87; Pulse 71; Resp 18 S; Pulse Ox 98% on R/A; ca1 19:00 BP 150 / 90; Pulse 73; Resp 17 S; Pulse Ox 98% on R/A; ca1 19:15 BP 185 / 99; Pulse 76; Resp 18 S; Pulse Ox 98% on R/A; ca1 19:30 BP 165 / 90; Pulse 81; Resp 17 S; Pulse Ox 98% on R/A; ca1 19:50 BP 173 / 99; Pulse 84; Resp 17 S; Pulse Ox 99% on R/A; ca1 20:00 BP 181 / 100; Pulse 86; Resp 19 S; Pulse Ox 97% on R/A; ca1 20:40 BP 160 / 92; Pulse 82; Resp 18 S; Pulse Ox 98% on R/A; ca1 ED Course: 17:37 Patient arrived in ED. as 17:37 Sharad Stewart MD is Private Physician. as 18:00 Triage completed. sv 18:00 Arm band placed on. sv 18:05 Patient has correct armband on for positive identification. Placed in gown. Bed in low ca1 position. Call light in reach. Side rails up X2. Pulse ox on. NIBP on. Warm blanket given. 18:33 Sneha Barriga RN is Primary Nurse. ca1 18:34 Clare Hough FNP-C is PHCP. snw 18:34 Teodoro Pittman MD is Attending Physician. snw 19:25 Sharad Stewart MD is Referral Physician. snw 20:45 No provider procedures requiring assistance completed. Patient did not have IV access ca1 during this emergency room visit. Administered Medications: 19:40 Drug: Valium 2 mg Route: PO; ca1 20:40 Follow up: Response: No adverse reaction; Pain is decreased ca1 19:42 Drug: fentaNYL (PF) 50 mcg Route: IM; Site: left gluteus; ca1 20:40 Follow up: Response: No adverse reaction; Pain is decreased ca1 Outcome: 19:26 Discharge ordered by . snw 20:45 Discharged to home via wheelchair, with son ca1 20:45 Condition: stable 20:45 Discharge instructions given to patient, family, Instructed on discharge instructions, follow up and referral plans. medication usage, Demonstrated understanding of instructions, follow-up care, medications, Prescriptions given X 2. 20:46 Patient left the ED. ca1 Signatures: Pretty Silva, RN RN Clare Hough, PROJECT MANAGER RETAIL-C PROJECT MANAGER RETAIL-Brendaw Catherine Sosa Cheryl RN RN ca1 Corrections: (The following items were deleted from the chart) 18:01 17:52 Acuity: CRISS 4 [facility] 20:18 20:17 Reassessment: Son requested to stay until sister gets here to bring pt's clothes ca1 ca1
--- NOTE | 2018-11-15 19:27 | EDPHYS ---
Physician Documentation [facility] Name: Erick Rodriguez Age: 68 yrs Sex: Male : 1950 Arrival Date: 11/15/2018 Time: 17:37 Bed 25 Private MD: Sharad Stewart C ED Physician Teodoro Pittman HPI: 11/15 19:41 This 68 yrs old Male presents to ER via Wheelchair with complaints of Back snw Pain. 19:41 The patient presents with pain that is acute, with no known mechanism of injury. The snw symptoms are located in the bliaterally waist area in posterior aspect of trunck, no nausea, no abdominal pain, no fever, no urinary trouble, no new weakness pt can appreciate. Onset: The symptoms/episode began/occurred suddenly, 3 day(s) ago. The pain does not radiate. The problem was sustained from unknown cause. Severity of symptoms: At their worst the symptoms were moderate. It is unknown whether or not the patient has had similar symptoms in the past. Historical: - Allergies: 18:00 Sulfa (Sulfonamide Antibiotics); sv - PMHx: 18:00 Aortic valve replacement (cow); CVA; Hyperlipidemia; Hypertension; sv - Immunization history:: Flu vaccine is up to date. - Social history:: Smoking status: Patient/guardian denies using tobacco. - Ebola Screening: : No symptoms or risks identified at this time. ROS: 19:28 Constitutional: Negative for fever, chills, and weight loss, Eyes: Negative for injury, snw pain, redness, and discharge, ENT: Negative for injury, pain, and discharge, Neck: Negative for injury, pain, and swelling, Cardiovascular: Negative for chest pain, palpitations, and edema. 19:28 Abdomen/GI: Negative for abdominal pain, nausea, vomiting, diarrhea, and constipation, Back: Negative for injury and pain, : Negative for injury, bleeding, discharge, and swelling, MS/Extremity: Negative for injury and deformity, + history of right sided weakness s/p CVA Aug 2017. Pt denies choking spells, fever, urinary problems, saddle anesthesia, constipation. Skin: Negative for injury, rash, and discoloration, Neuro: Negative for headache, weakness, numbness, tingling, and seizure. 19:28 Respiratory: Negative for cough, wheezing. Exam: 19:28 Constitutional: This is a well developed, well nourished patient who is awake, alert, snw and in no acute distress. Head/Face: Normocephalic, atraumatic. Eyes: Pupils equal round and reactive to light, extra-ocular motions intact. Lids and lashes normal. Conjunctiva and sclera are non-icteric and not injected. Cornea within normal limits. Periorbital areas with no swelling, redness, or edema. ENT: Nares patent. No nasal discharge, no septal abnormalities noted. Tympanic membranes are normal and external auditory canals are clear. Oropharynx with no redness, swelling, or masses, exudates, or evidence of obstruction, uvula midline. Mucous membranes moist. Neck: Trachea midline, no thyromegaly or masses palpated, and no cervical lymphadenopathy. Supple, full range of motion without nuchal rigidity, or vertebral point tenderness. No Meningismus. Chest/axilla: Normal chest wall appearance and motion. Nontender with no deformity. No lesions are appreciated. Cardiovascular: Regular rate and rhythm with a normal S1 and S2. No gallops, murmurs, or rubs. Normal PMI, no JVD. No pulse deficits. Respiratory: Lungs have equal breath sounds bilaterally, clear to auscultation and percussion. No rales, rhonchi or wheezes noted. No increased work of breathing, no retractions or nasal flaring. Abdomen/GI: Soft, non-tender, with normal bowel sounds. No distension or tympany. No guarding or rebound. No evidence of tenderness throughout. Skin: Warm, dry with normal turgor. Normal color with no rashes, no lesions, and no evidence of cellulitis. MS/ Extremity: Pulses equal, no cyanosis. Neurovascular intact. Full, normal range of motion. Neuro: Awake and alert, GCS 15, oriented to person, place, time, and situation. Cranial nerves II-XII grossly intact. Motor strength 5/5 in all extremities. Sensory grossly intact. Cerebellar exam normal. Normal gait. Psych: Awake, alert, with orientation to person, place and time. Behavior, mood, and affect are within normal limits. 19:28 Back: CVA tenderness, is noted bilaterally, at the flank areas bilaterally but close to vertebrae, no pau tenderness, vertebral tenderness, is not appreciated, muscle spasm. Vital Signs: 18:00 BP 167 / 98; Pulse 88; Resp 16; Temp 98.8; Pulse Ox 100% ; sv 18:33 BP 157 / 93; Pulse 72; Resp 18 S; Pulse Ox 97% on R/A; ca1 18:45 BP 156 / 87; Pulse 71; Resp 18 S; Pulse Ox 98% on R/A; ca1 19:00 BP 150 / 90; Pulse 73; Resp 17 S; Pulse Ox 98% on R/A; ca1 19:15 BP 185 / 99; Pulse 76; Resp 18 S; Pulse Ox 98% on R/A; ca1 19:30 BP 165 / 90; Pulse 81; Resp 17 S; Pulse Ox 98% on R/A; ca1 19:50 BP 173 / 99; Pulse 84; Resp 17 S; Pulse Ox 99% on R/A; ca1 20:00 BP 181 / 100; Pulse 86; Resp 19 S; Pulse Ox 97% on R/A; ca1 20:40 BP 160 / 92; Pulse 82; Resp 18 S; Pulse Ox 98% on R/A; ca1 MDM: 19:17 Patient medically screened. snw 19:40 Data reviewed: vital signs, nurses notes. Data interpreted: Pulse oximetry: on room air snw is 100 %. Interpretation: normal. Counseling: I had a detailed discussion with the patient and/or guardian regarding: the historical points, exam findings, and any diagnostic results supporting the discharge/admit diagnosis, the presence of at least one elevated blood pressure reading (>120/80) during this emergency department visit, the need for outpatient follow up, for definitive care, to return to the emergency department if symptoms worsen or persist or if there are any questions or concerns that arise at home. Special discussion: Based on the history and exam findings, there is no indication for further emergent testing or inpatient evaluation. I discussed with the patient/guardian the need to see the neurologist for further evaluation of the symptoms. I discussed with the patient/guardian the need to see the primary care provider for further evaluation of the symptoms. Administered Medications: 19:40 Drug: Valium 2 mg Route: PO; ca1 20:40 Follow up: Response: No adverse reaction; Pain is decreased ca1 19:42 Drug: fentaNYL (PF) 50 mcg Route: IM; Site: left gluteus; ca1 20:40 Follow up: Response: No adverse reaction; Pain is decreased ca1 Disposition: 11/15/18 19:26 Discharged to Home. Impression: Muscle spasm of back. - Condition is Stable. - Discharge Instructions: Muscle Cramps and Spasms, Cryotherapy, Heat Therapy. - Prescriptions for Tylenol- Codeine #3 300-30 mg Oral Tablet - take 2 tablets by ORAL route every 6 hours As needed; 15 tablet. orphenadrine citrate 100 mg Oral Tablet Sustained Release - take 1 tablet by ORAL route 2 times per day As needed; 20 tablet. - Medication Reconciliation Form, Thank You Letter, Antibiotic Education, Prescription Opioid Use form. - Follow up: Sharad Stewart MD; When: 2 - 3 days; Reason: Recheck today's complaints, Continuance of care. Follow up: Emergency Department; When: As needed; Reason: Trouble breathing, Worsening of condition. Addendum: 11/17/2018 19:45 Co-signature as Attending Physician, Teodoro Pittman MD. r n Signatures: Pretty Silva RN RN Clare Valera, DAM WORKER-C DAM WORKER-Csnw Teodoro Pittman MD MD rn Acob, Sneha RN RN ca1 Corrections: (The following items were deleted from the chart) 11/15 20:46 19:26 11/15/2018 19:26 Discharged to Home. Impression: Muscle spasm of back. Condition ca1 is Stable. Forms are Medication Reconciliation Form, Thank You Letter, Antibiotic Education, Prescription Opioid Use. Follow up: Sharad Stewart; When: 2 - 3 days; Reason: Recheck today's complaints, Continuance of care. Follow up: Emergency Department; When: As needed; Reason: Trouble breathing, Worsening of condition. snw
[2018-11-15] MEDS ORDERED: FENTANYL CITR 100 MCG/2 ML ONE (19:54)
[2018-11-15] MEDS ORDERED: DIAZEPAM 2 MG TABLET ONE (19:55)
[2018-11-15 20:51] VITALS: TEMP 98.8
[2018-11-15 21:00] VITALS: BP 160/92; O2SAT 98
== END 2018-11-15 20:46 | disposition home or self-care (01) ==
LOC: ER 17:34
DX: M62.830 Muscle spasm of back (principal); I10 Essential (primary) hypertension; Z88.2 Allergy status to sulfonamides; Z86.73 Personal history of transient ischemic attack (TIA), and cerebral infarction without residual deficits; Z95.4 Presence of other heart-valve replacement
CPT/HCPCS: 96372; 99283; J3010

== ENCOUNTER 2018-11-16 09:50 | Emergency (ER) | payer OTHER, BC ==
--- OUTSIDE RECORDS SUMMARY | 2018-11-16 09:53 | XMS REPORT | Continuity of Care Document ---
:1950 Author Organization Interface Problems Problem Status Onset Date Classification Date Comments Source Reported Medications Medication Details Route Status Patient Ordering Order Source Instructions Provider Date Allergies, Adverse Reactions, Alerts Substance Category Reaction Severity Reaction Status Date Comments Source type Reported Sulfa Rash Allergy to Active [facility] (Sulfonamid Substance 8 [facility] [...] - [place] [facility] Estimat 79 90 08/10 [facility] Studies Glomerular mL/min /2017 [facility] Filtration Rate [place] [facility] Creatinine 0.95 0.61 - 08/[address] [facility] [address] Studies mg/dL 1.24 [facility] [...] Blood 6.2 K/uL 4.3 - 10.9 08/[address] [facility] [address] Studies Count /2017 [facility] [place] [facility] Red Cell 13.3 % 12.1 - 08/[address] [facility] [address] Studies Distribution 15.2 /2017 [facility] Width [place] [facility] Red Blood Count 5.07 4.33 - [address] [facility] [address] Studies M/uL 5.43 /2017 [facility] [place] [facility] Platelet Count 279 K/uL 152 - 406 08/[address] [facility] [address] Studies /2017 [facility] [place] [facility] Neutrophils % 61.2 % 41.7 - 08/[address] [facility] [address] Studies 73.7 /2017 [facility] [place] [facility] Monocytes % 8.6 % 3.3 - 12.3 08/[address] [facility] [address] Studies /2017 [facility] [place] [facility] Mean Platelet 8.7 fL 7.6 - 11.3 08/[address] [facility] [address] Studies Volume /2017 [facility] [place] [facility] Mean 87.1 fL 80 - 100 08/[address] [facility] [address] Studies Corpuscular /2017 [facility] Volume [place] [facility] Mean 33.8 32.0 - 08/[address] [facility] [address] Studies Corpuscular g/dL 36.0 /2017 [facility] Hemoglobin [place] [facility] Mean 29.4 pg 27.0 - 08/[address] [facility] [address] Studies Corpuscular 35.0 /2017 [facility] Hemoglobin [place] [facility] Lymphocytes % 26.2 % 15.3 - 08/[address] [facility] [address] Studies 44.8 /2017 [facility] [place] [facility] Hemoglobin 14.9 13.6 - 08/[address] [facility] [address] Studies g/dL 17.9 /2017 [facility] [place] [facility] Hematocrit 44.2 % 39.6 - 08/[address] [facility] [address] Studies 49.0 /2017 [facility] [place] [facility] Eosinophils % 3.2 % 0 - 4.4 08/[address] [facility] [address] Studies /2017 [facility] [place] [facility] Basophils % 0.8 % 0 - 1.3 08/[address] [facility] [address] Studies /2017 [facility] [place] [facility] Absolute 3.8 K/uL 1.8 - 8.0 08/[address] [facility] [address] Studies Neutrophil /2017 [facility] [place] [facility] Absolute 0.5 K/uL 0.1 - 1.3 08/10 [facility]. Studies Monocytes (CBC) /2017 [facility] [place] [facility] Absolute 1.6 K/uL 0.7 - 4.9 08/[address] [facility] [address] Studies Lymphocytes /2017 [facility] - (CBC) [place] [facility] Absolute 0.2 K/uL 0 - 0.5 08/[address] [facility] [address] Studies Eosinophils /2017 [facility] (CBC) [place] [facility] Absolute 0.0 K/uL 0 - 0.5 08/[address] [facility] [address] Studies Basophils (CBC) /2017 [facility] Vital Signs Vital Sign Value Date Comments Source Heart Rate 83 08/11/[address] [facility] [address] [facility] Respitory [facility] 15 [facility] Systolic [facility] Hg) 120 08/11/2017 [facility] Diastolic (mm Hg) 81 08/11/2017 [facility] Temperature Oral (F) 97.7 F [facility]11[facility] 68 08/10/2017 [facility] Weight 200.00 08/10/2017 [facility] Encounters Location Location Encounter Encounter Reason Attending ADM DC Status Source Details Type Number For Provider Date Date Visit MATTHEW Mccormick Departed [id number] 08/11 08/[address] [facility] Procedures Procedure Code Date Perfomer Comments Source
--- OUTSIDE RECORDS SUMMARY | 2018-11-16 09:53 | XMS REPORT | Clinical Summary ---
:1950 Author Organization [facility] Address [address] [place] [address] Care Team Providers Name Role Phone Drew [...] S/P AVR 08/17/2017 Coronary artery disease involving hopi coronary artery of hopi heart 08/17 without angina pectoris Post-op pain [...] (CVA), unspecified mechanism; Coronary artery disease involving hopi coronary artery of hopi heart without angina pectoris after 11/15/2017 Immunizations Name Dates Previously Given Next Due [...] Taken Blood Pressure 100/77 07/04/2018 1:39 PM PHYSICAL INTEGRATION PRACTITIONER Pulse 64 07/04/2018 1:39 PM PHYSICAL INTEGRATION PRACTITIONER Temperature 36.3 C (97.4 F) 11/17/2017 11:25 [...] SCREENING 09/09/2027 09/09/2017 Implants Implanted Type Area Zipper Trimmer Hand Device Shelf Model / Identifier Expiration Serial / Date Lot Valve Aortic Hemo Peric Tiss W/[place] Tech Cuff 23mm Trifecta - [id number] - [id number] Cardiovascular N/A: [facility] 02/12/2021 TFGT [id number] / Implanted: Qty: 1 on 08/17/2017 by Bakari Elias MD Implants Heart STRUCTURAL [id number] / HEART [id number] Clip Ligtng Weck Hemoclip Plus W/ Tape Ti Med - [id number] Medical Clips for N /A: N/A TELEFLEX [id number] / Implanted: 08/17/2017 (Quantity not on file) Internal Use MEDICAL / Clip Ligtng Weck Hemoclip Plus W/ Tape Ti Sm Strngpnt - [id number] Medical Clips for N/A: N/A WECK CLOSURE [id number] / Implanted: 08/17/2017 (Quantity not on file) Internal Use SYSTEMS / Clip Ligtng Weck Hemoclip Plus W/ Tape Ti Med - [id number] Medical Clips for N /A: N/A TELEFLEX [id number] / Implanted: 08/24/2017 (Quantity not on file) Internal Use MEDICAL / Patch Biosurg Selnt Fibrin Absrbl 9.5x4.8cm Tachosil - [id number] Surgical N/A : N/A JACK [id number] / Implanted: 08/17/2017 (Quantity not on file) Implants; BIOSCIENCE / Expanders; Extenders; Surgical Wires Patch Biosurg Selnt Fibrin Absrbl 9.5x4.8cm Tachosil - [id number] Surgical N/A : N/A JACK [id number] / Implanted: 08/17/2017 (Quantity not on file) Implants; BIOSCIENCE / Expanders; Extenders; Surgical Wires Patch Biosurg Selnt Fibrin Absrbl 9.5x4.8cm Tachosil - [id number] Surgical N/A : N/A JACK [id number] / Implanted: 08/17/2017 (Quantity not on file) Implants; BIOSCIENCE / Expanders; Extenders; Surgical Wires [place] Perph Vasclr Ptfe 1.2x10cm 1.65mm - [id number] Vascular Graft N/A: N/A BARD PERIPHERAL 02/01/2022 [id number] / Implanted: 08/17/2017 (Quantity not on file) VASCULAR / [id number] [place] Perph Vasclr Ptfe 1.2x10cm 1.65mm - [id number] Vascular Graft N/A: N/A BARD PERIPHERAL 06/03/2022 [id number] / Implanted: 08/17/2017 (Quantity not on file) VASCULAR / [id number] Explanted Type Area Zipper Trimmer Hand Device Shelf Model / Identifier Expiration Serial / Date Lot Lead Pace Galileo Mycrdl Unipol Tmpry Streamline - [id number] Cardiovascular N/A : [employer] [place] - [id number] / Implanted: 08/17/2017 (Quantity not on file) Implants N/A CARDIAC SRGRY / Lead Pace Galileo Mycrdl Unipol Tmpry Streamline - [id number] Cardiovascular N/A : [employer] [place] - [id number] / Implanted: 08/17/2017 (Quantity not on file) Implants N/A CARDIAC SRGRY / Procedures Procedure Name Priority Date/Time Associated Comments Diagnosis MT NEEDLE EMG GUIDANCE Routine 07/04/2018 1:15 Right spastic Results for this FOR CHEMODENERVATION PM PHYSICAL INTEGRATION PRACTITIONER hemiparesis (HCC) procedure are in the results section. MT CHEMODENERVATION 1 Routine 07/04/2018 1:15 Right spastic Results for this EXTREMITY 5 OR MORE PM PHYSICAL INTEGRATION PRACTITIONER hemiparesis (HCC) procedure are in MUSCLES the results section. MT NEEDLE EMG GUIDANCE Routine 04/03/2018 1:00 Right spastic Results for this FOR CHEMODENERVATION PM CDT hemiparesis procedure are in the results section. MT CHEMODENERVATION 1 Routine 04/03/2018 1:00 Right spastic Results for this EXTREMITY 5 OR MORE PM CDT hemiparesis procedure are in MUSCLES the results section. MT NEEDLE EMG GUIDANCE Routine 12/26/2017 1:15 Right spastic Results for this FOR CHEMODENERVATION PM CDT hemiparesis procedure are in the results section. MT CHEMODENERVATION ONE Routine 12/26/2017 1:15 Right spastic Results for this EXTREMITY 1-4 MUSCLE PM CDT hemiparesis procedure are in the results section. PROTHROMBIN TIME WITH Routine 11/16/2017 4:20 Results for this INR AM CDT procedure are in the results section. after 11/15/2017 Results Botulinum Injection (07/04/2018 1:15 PM PHYSICAL INTEGRATION PRACTITIONER) Narrative Performed At Telma Ramos MD 07/04/20185:28 PM Botulinum Injection Date/Time: 07/04/2018 1:47 PM Performed by: Telma Ramos MD Authorized by: Telma Ramos MD Consent: Consent obtained:Written Consent given by:Patient Risks discussed:Bleeding, excessive weakness, muscle atrophy, venous thrombosis and pain and discomfort Benefits discussed:Decreased muscle tightness, increased joint range of motion and decreased pain [place] protocol: Procedure explained and questions answered to [...] No Procedure details: Agent Botulinum Toxin:Dysport (lot [id number] exp 01/04/2019) Total Units Injected:1500 Dysport Medications [...] joint range of motion and decreased pain [place] protocol: Procedure explained and questions answered to [...] joint range of motion and decreased pain [place] protocol: Procedure explained and questions answered to [...] time 24.8 (H) 12.0 - 15.0 sec [facility] DEPARTMENT OF PATHOLOGY AND GENOMIC MEDICINE INR 2.2 [facility] DEPARTMENT OF Comment: PATHOLOGY AND GENOMIC The International Normalized Ratio (INR) is a therapeutic MEDICINE monitoring tool for patients who are stable on oral anticoagulant therapy. An INR of 2.0-3.0 is suggested for deep vein thrombosis/pulmonary embolism. Specimen Blood Performing Organization Address City/State/Zipcode Phone Number [facility] DEPARTMENT OF PATHOLOGY AND [address] [place] [address] GENOMIC MEDICINE after 11/15/2017 Insurance Payer Benefit Plan / Group Subscriber ID Type Phone Address MEDICARE MEDICARE PART A AND B xxxxxxxxxx Medicare [place], [place] BCBS BCBS PAR/TRAD PLAN xxxxxxxxxxxx Indemnity Advance Directives Patient has advance care planning documents on file. For more information, please contact:Alonso Garza[address] [place] [address]
[2018-11-16] MEDS ORDERED: ONDANSETRON 4 MG/2 ML VIAL ONE ×2 (11:46→14:31)
[2018-11-16] MEDS ORDERED: MORPHINE 4 MG/ML SYR ONE ×3 (11:46→18:12)
[2018-11-16 11:52] LABS: Absolute Lymphocytes (CBC) 0.8 K/uL (0.7-4.9); Absolute Monocytes 0.6 K/uL (0.1-1.3); Absolute Neutrophil 8.7 K/uL (1.8-8.0); Basophils % 0.3 % (0-1.3); Eosinophils % 0.1 % (0-4.4); Hematocrit 43.1 % (39.6-49.0); Lymphocytes % 7.8 % (15.3-44.8); MPV 8.2 fL (7.6-11.3); Monocytes % 6.3 % (3.3-12.3); RBC Red Blood Cell Count 4.99 M/uL (4.33-5.43)
[2018-11-16 12:03] LABS: Protime INR 1.11
[2018-11-16 12:13] LABS: ALT/SGPT 22 U/L (12-78); AST/SGOT 12 U/L (15-37); Albumin 4.3 g/dL (3.4-5.0); Alkaline Phosphatase 122 U/L (45-117); BUN Blood Urea Nitrogen 14 mg/dL (7-18); Bicarbonate 27 mmol/L (21-32); Bilirubin Direct 0.2 mg/dL (0-0.2); Bilirubin Total 0.7 mg/dL (0.2-1.0); CKMB Creatine Kinase MB 3.4 ng/mL (0.3-3.6); Creatine Phosphokinase 359 U/L (39-308); Glucose Level 96 mg/dL (74-106); Lipase 29 U/L (73-393); Potassium 3.9 mmol/L (3.5-5.1); Protein, Total 8.4 g/dL (6.4-8.2); Sodium Level 142 mmol/L (136-145); Troponin (Emerg Dept Use Only) < 0.02 ng/mL (0.0-0.045)
--- NOTE | 2018-11-16 12:17 | RAD REPORT ---
EXAM DESCRIPTION: RAD - Chest Single View - 11/16/2018 12:05 pm CLINICAL HISTORY: Back pain, hypertension COMPARISON: September 13, 2018 TECHNIQUE: AP portable chest image was obtained 1151 hours . FINDINGS: Lung volumes are low accentuating already prominent interstitial pattern. No peripheral ma ss or consolidation. Heart and vasculature are normal. No measurable pleural effusion and no pneumoth orax. No acute bony abnormality seen. Old right clavicle fracture seen. No acute aortic findings susp ected. IMPRESSION: Chronic interstitial lung disease accentuated by shallow inspiration. No focal mass or consolidation and findings are not substantially different from comparison.
[2018-11-16 12:39] LABS: Blood Morphology Comment NOT SEEN (NOT SEEN); Platelet Estimate ADEQ; Urine White Blood Cell Casts OK
--- NOTE | 2018-11-16 13:03 | RAD REPORT ---
EXAM DESCRIPTION: CT - Abdomen Pelvis W Contrast - 11/16/2018 12:45 pm CLINICAL HISTORY: Abdominal pain COMPARISON: April 2018 TECHNIQUE: Computed axial tomography of the abdomen pelvis was obtained. 100 cc Isovue-300 was admin istered intravenously. Oral contrast was not requested which limits evaluation of bowel. All CT scans are performed using dose optimization technique as appropriate and may include automated exposure control or mA/KV adjustment according to patient size. FINDINGS: The liver, spleen, pancreas, and adrenals appear unremarkable. Small renal cysts There is no evidence of diverticulitis. A 3 millimeter round collection of gas abuts the left S1 nerve root. L5-S1 disc is thinned with osteo phytes and disc bulge . Mild compression fracture involves the T11 vertebral body which probably is acute/subacute. Mild old compression fracture involves the T12 vertebral body Prostate has been removed. 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 IMPRESSION: Mild compression fracture involves the T11 vertebral body which probably is acute/subacu te. A 3 millimeter round collection of gas abuts the left S1 nerve root. Clinical correlation is needed t o see if the patient has clinical symptoms along the S1 distribution
--- NOTE | 2018-11-16 13:06 | RAD REPORT ---
EXAM DESCRIPTION: CT - Head Brain Wo Cont - 11/16/2018 12:45 pm CLINICAL HISTORY: Slurred speech COMPARISON: April 2018 TECHNIQUE: Computed axial tomography of the head was obtained. IV contrast was not requested. All CT scans are performed using dose optimization technique as appropriate and may include automated exposure control or mA/KV adjustment according to patient size. FINDINGS: An intracranial bleed is not seen . The ventricles are normal in caliber. No extra-axial fluid collection is noted. Low-density areas within the right frontal lobe and basal ganglia are unchanged secondary to old infa rctions. Fluid within the sinuses/ mastoids is not seen. IMPRESSION: No acute intracranial abnormality is seen. If patient's symptoms persist MRI of the bra in would be recommended.
--- NOTE | 2018-11-16 16:19 | RAD REPORT ---
EXAM DESCRIPTION: MRI - Lumbar Spine Wo Con - 11/16/2018 3:39 pm CLINICAL HISTORY: Vertebral fracture. Back pain COMPARISON: CT November 16, 2018 TECHNIQUE: Sagittal T1, T2 and STIR weighted sequences were obtained. Axial T1 and T2 sequences were obtained through the lumbar disc levels. FINDINGS: Mild compression fracture involves the T11 vertebral body. A fracture line is seen. Edema is present within the vertebral body. A mild to moderate compression fracture involves the T12 vertebral body. A fracture line is seen. Clifford ma is present within the vertebral body Small left paracentral disc herniation T10-11 A mild spondylosis involves the proximal and mid lumbar spine. A small left posterolateral disc herniation L5-S1 with small round gas bubble compress the left S1 ne rve root IMPRESSION: Mild subacute compression fracture T11 vertebral body Mild to moderate subacute compression fracture T12 vertebral body Small left paracentral disc herniation T10-11 Small left posterior-lateral disc herniation L5-S1 with small round gas bubble compressing the left S 1 nerve root
--- NOTE | 2018-11-16 17:49 | ER ---
Nurse's Notes [facility] Name: Erick Rodriguez Age: 68 yrs Sex: Male : 1950 Arrival Date: 11/16/2018 Time: 09:53 Bed 16 Private MD: Sharad Stewart C Diagnosis: Compression fracture to T 11/12 and herniated disk L5-S1 Presentation: 11/16 10:34 Presenting complaint: Child states: was seen here last night for mid back pain, was iw prescribed pain meds but was unable to get them filled yet, pt still having pain and his BP was high this morning. Transition of care: patient was not received from another setting of care. Onset of symptoms was November 14, 2018. Risk Assessment: Do you want to hurt yourself or someone else? Patient reports no desire to harm self or others. Initial Sepsis Screen: Does the patient meet any 2 criteria? No. Patient's initial sepsis screen is negative. Does the patient have a suspected source of infection? No. Patient's initial sepsis screen is negative. Care prior to arrival: None. 10:34 Method Of Arrival: Wheelchair iw 10:34 Acuity: CRISS 4 iw 11:13 Acuity: CRISS 3 iw Historical: - Allergies: 10:36 Sulfa (Sulfonamide Antibiotics); iw - Home Meds: 10:36 amlodipine 5 mg tab 1 tab BID [Active]; aspirin 81 mg Oral TbEC 1 tab once daily iw [Active]; hydrochlorothiazide 12.5 mg Oral tab 1 tab once daily [Active]; Lexapro 20 mg Oral tab 1 tab once daily [Active]; meclizine 12.5 mg Oral tab 1 tabs 2 times per day [Active]; ramipril 10 mg Oral cap 1 cap 2 times per day [Active]; Zocor 20 mg Oral tab 1 tab once daily [Active]; - PMHx: 10:36 CVA; Aortic valve replacement (cow); Hyperlipidemia; Hypertension; iw - Immunization history:: Adult Immunizations unknown. - Ebola Screening: : Patient negative for fever greater than or equal to 101.5 degrees Fahrenheit, and additional compatible Ebola Virus Disease symptoms Patient denies exposure to infectious person Patient denies travel to an Ebola-affected area in the 21 days before illness onset No symptoms or risks identified at this time. - Social history:: Smoking status: Patient/guardian denies using tobacco. Screenin:31 Abuse screen: Denies threats or abuse. Denies injuries from another. Nutritional ph screening: No deficits noted. Tuberculosis screening: No symptoms or risk factors identified. Fall Risk Fall in past 12 months (25 points). Secondary diagnosis (15 points) CVA, IV access (20 points). Ambulatory Aid- None/Bed Rest/Nurse Assist (0 pts). Gait- Impaired (20 pts.). Mental Status- Oriented to own ability (0 pts). Total Silverman Fall Scale indicates High Risk Score (45 or more points). Fall prevention measures have been instituted. Side Rails Up X 2 Frequent Obs/Assessments Occuring Family Present and informed to notify staff if the need to leave the bedside As available patient and family educated on Fall Prevention Program and Strategies. Assessment: 10:30 General: Appears uncomfortable, well groomed, Behavior is calm, cooperative, ph appropriate for age, Denies fever, feeling ill. Pain: Complains of pain in lumbar area. 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 10:30 Cardiovascular: Reports shortness of breath, Denies chest pain, Capillary refill < 3 ph seconds in bilateral fingers Patient's skin is warm and dry. Respiratory: Airway is patent Respiratory effort is even, unlabored, Respiratory pattern is regular, symmetrical. GI: Abdomen is round non-distended, Patient currently denies abdominal pain, diarrhea, nausea, vomiting. : Denies burning with urination, urinary frequency. Derm: Skin is intact, Skin is pink, warm \T\ dry. Musculoskeletal: Circulation, motion, and sensation intact. Range of motion: limited in R side. 11:45 Reassessment: Patient appears in no apparent distress at this time. Patient and/or ph family updated on plan of care and expected duration. Pain level reassessed. Patient is alert, oriented x 3, equal unlabored respirations, skin warm/dry/pink. Pt reports that pain has improved after IV meds, family at bedside, awaiting lab results. 13:00 Reassessment: Patient appears in no apparent distress at this time. Patient and/or ph family updated on plan of care and expected duration. Pain level reassessed. Patient is alert, oriented x 3, equal unlabored respirations, skin warm/dry/pink. 14:00 Reassessment: Patient appears in no apparent distress at this time. Patient and/or ph family updated on plan of care and expected duration. Pain level reassessed. Patient is alert, oriented x 3, equal unlabored respirations, skin warm/dry/pink. 15:00 Reassessment: Patient appears in no apparent distress at this time. Pt taken to MRI via ph stretcher. 16:30 Reassessment: Patient appears in no apparent distress at this time. Patient and/or ph family updated on plan of care and expected duration. Pain level reassessed. Patient is alert, oriented x 3, equal unlabored respirations, skin warm/dry/pink. 17:30 Reassessment: Patient appears in no apparent distress at this time. Patient and/or ph family updated on plan of care and expected duration. Pain level reassessed. Patient is alert, oriented x 3, equal unlabored respirations, skin warm/dry/pink. 18:28 Reassessment: Patient appears in no apparent distress at this time. Patient and/or ph family updated on plan of care and expected duration. Pain level reassessed. Patient is alert, oriented x 3, equal unlabored respirations, skin warm/dry/pink. Pt medicated for pain and d/c home w/ family. Vital Signs: 10:30 BP 159 / 94; Pulse 97; Resp 16; Pulse Ox 96% on R/A; iw 12:11 BP 146 / 94; Pulse 91; Resp 26; Pulse Ox 97% on R/A; ph 13:30 BP 137 / 102; Pulse 91; Resp 24; Pulse Ox 95% on R/A; ph 15:00 BP 149 / 99; Pulse 94; Resp 24; Pulse Ox 96% on R/A; ph 16:30 BP 156 / 105; Pulse 92; Resp 22; Pulse Ox 96% on R/A; ph 17:30 BP 147 / 92; Pulse 90; Resp 20; Pulse Ox 95% on R/A; ph 18:35 BP 148 / 94; Pulse 87; Resp 18; Temp 97.8; Pulse Ox 95% on R/A; ph ED Course: 09:53 Patient arrived in ED. rg4 09:53 Sharad Stewart MD is Private Physician. rg4 10:20 Madhu Porter MD is Attending Physician. kdr 10:32 Kelsi Ibarra, RN is Primary Nurse. ph 10:36 Triage completed. iw 11:13 Arm band placed on. iw 11:30 Patient has correct armband on for positive identification. Bed in low position. Call ph light in reach. Side rails up X2. Pulse ox on. NIBP on. Door closed. Noise minimized. Lights dimmed. Warm blanket given. 11:32 Radiology exam delayed due to lab results not completed at this time. (BUN/Creatinine). vr 11:40 Inserted saline lock: 22 gauge in left antecubital area, using aseptic technique. ph 12:04 X-ray completed. Portable x-ray completed in exam room. jr1 12:06 Chest Single View XRAY In Process Unspecified. EDMS 12:25 EKG done, by chemical production technician. reviewed by Madhu Porter MD. at1 12:45 CT Head Brain wo Cont In Process Unspecified. EDMS 12:45 CT Abd/Pelvis - W/Contrast In Process Unspecified. EDMS 15:38 MRI Lumbar Spine wo Con In Process Unspecified. EDMS 17:47 Sharad Stewart MD is Referral Physician. kdr 18:41 No provider procedures requiring assistance completed. IV discontinued, intact, ph bleeding controlled, No redness/swelling at site. Pressure dressing applied. Administered Medications: 11:38 Drug: Zofran 4 mg Route: IVP; Site: left antecubital; ph 12:30 Follow up: Response: No adverse reaction ph 11:40 Drug: morphine 4 mg Route: IVP; Site: left antecubital; ph 12:30 Follow up: Response: No adverse reaction; Pain is decreased ph 14:23 Drug: Zofran 4 mg Route: IVP; Site: left antecubital; ph 15:00 Follow up: Response: No adverse reaction ph 14:25 Drug: morphine 4 mg Route: IVP; Site: left antecubital; ph 15:00 Follow up: Response: No adverse reaction; Pain is decreased ph 14:33 CANCELLED (Physician Discretion): vancoMYCIN 1.5 grams IVPB at calculated rate once ph 18:10 Drug: morphine 4 mg Route: IVP; Site: left antecubital; ph 18:41 Follow up: Response: No adverse reaction; Pain is decreased ph Outcome: 17:48 Discharge ordered by . kdr 18:41 Discharged to home via wheelchair, with family. ph 18:41 Condition: improved 18:41 Discharge instructions given to patient, family, Instructed on discharge instructions, follow up and referral plans. medication usage, Demonstrated understanding of instructions, follow-up care, medications, Prescriptions given X 3. 18:42 Patient left the ED. ph Signatures: Dispatcher [employer] EDMS Madhu Porter MD MD kdr Lindsay, Shanell jr1 Jolene Miramnotes RN RN Sarina Meeks Annie Marin, unscrambler EKG Tat1 Kelsi Ibarra RN RN Shin, Rossy rg4 Corrections: (The following items were deleted from the chart) 12:15 11:46 General: Appears uncomfortable, well groomed, Behavior is calm, cooperative, ph appropriate for age, Denies fever, feeling ill, ph 12:15 11:46 Pain: Complains of pain in lumbar area ph ph 12:15 11:46 Neuro: Level of Consciousness is awake, alert, obeys commands, Oriented to ph person, place, time, situation, ph
--- NOTE | 2018-11-16 17:49 | EDPHYS ---
Physician Documentation [facility] Name: Erick Rodriguez Age: 68 yrs Sex: Male : 1950 Arrival Date: 11/16/2018 Time: 09:53 Bed 16 Private MD: Sharad Stewart C ED Physician Madhu Porter HPI: 11/16 18:45 This 68 yrs old Male presents to ER via Wheelchair with complaints of Back kdr Pain, High Blood Pressure. 18:45 The patient presents with pain that is acute, with no known mechanism of injury, and kdr decreased range of motion. The symptoms are located in the low back. Onset: The symptoms/episode began/occurred gradually, Since about Monday. The pain does not radiate. Associated signs and symptoms: The patient has no apparent associated signs or symptoms. The problem was sustained from unknown cause. Modifying factors: The patient symptoms are alleviated by nothing, the patient symptoms are aggravated by any movement, bending, standing. Severity of symptoms: At their worst the symptoms were moderate, in the emergency department the symptoms are unchanged. The patient has not experienced similar symptoms in the past. The patient has not recently seen a physician. Historical: - Allergies: 10:36 Sulfa (Sulfonamide Antibiotics); iw - Home Meds: 10:36 amlodipine 5 mg tab 1 tab BID [Active]; aspirin 81 mg Oral TbEC 1 tab once daily iw [Active]; hydrochlorothiazide 12.5 mg Oral tab 1 tab once daily [Active]; Lexapro 20 mg Oral tab 1 tab once daily [Active]; meclizine 12.5 mg Oral tab 1 tabs 2 times per day [Active]; ramipril 10 mg Oral cap 1 cap 2 times per day [Active]; Zocor 20 mg Oral tab 1 tab once daily [Active]; - PMHx: 10:36 CVA; Aortic valve replacement (cow); Hyperlipidemia; Hypertension; iw - Immunization history:: Adult Immunizations unknown. - Ebola Screening: : Patient negative for fever greater than or equal to 101.5 degrees Fahrenheit, and additional compatible Ebola Virus Disease symptoms Patient denies exposure to infectious person Patient denies travel to an Ebola-affected area in the 21 days before illness onset No symptoms or risks identified at this time. - Social history:: Smoking status: Patient/guardian denies using tobacco. ROS: 18:45 Constitutional: Negative for fever, chills, and weight loss, Eyes: Negative for injury, kdr pain, redness, and discharge, ENT: Negative for injury, pain, and discharge, Neck: Negative for injury, pain, and swelling, Cardiovascular: Negative for chest pain, palpitations, and edema, Respiratory: Negative for shortness of breath, cough, wheezing, and pleuritic chest pain, Abdomen/GI: Negative for abdominal pain, nausea, vomiting, diarrhea, and constipation, : Negative for injury, bleeding, discharge, and swelling, MS/Extremity: Negative for injury and deformity, Skin: Negative for injury, rash, and discoloration, Neuro: Negative for headache, weakness, numbness, tingling, and seizure activity. Psych: Negative for depression, anxiety, suicide ideation, homicidal ideation, and hallucinations, Allergy/Immunology: Negative for hives, rash, and allergies, Endocrine: Negative for neck swelling, polydipsia, polyuria, polyphagia, and marked weight changes, Hematologic/Lymphatic: Negative for swollen nodes, abnormal bleeding, and unusual bruising. 18:45 Back: Positive for decreased range of motion, pain at rest, pain with movement, of the low back area. Exam: 18:45 Constitutional: This is a well developed, well nourished patient who is awake, alert, kdr and in no acute distress. Head/Face: Normocephalic, atraumatic. Eyes: Pupils equal round and reactive to light, extra-ocular motions intact. Lids and lashes normal. Conjunctiva and sclera are non-icteric and not injected. Cornea within normal limits. Periorbital areas with no swelling, redness, or edema. Neck: Trachea midline, no thyromegaly or masses palpated, and no cervical lymphadenopathy. Supple, full range of motion without nuchal rigidity, or vertebral point tenderness. No Meningismus. Chest/axilla: Normal chest wall appearance and motion. Nontender with no deformity. No lesions are appreciated. Cardiovascular: Regular rate and rhythm with a normal S1 and S2. No gallops, murmurs, or rubs. Normal PMI, no JVD. No pulse deficits. Respiratory: Lungs have equal breath sounds bilaterally, clear to auscultation and percussion. No rales, rhonchi or wheezes noted. No increased work of breathing, no retractions or nasal flaring. Abdomen/GI: Soft, non-tender, with normal bowel sounds. No distension or tympany. No guarding or rebound. No evidence of tenderness throughout. Skin: Warm, dry with normal turgor. Normal color with no rashes, no lesions, and no evidence of cellulitis. MS/ Extremity: Pulses equal, no cyanosis. Neurovascular intact. Full, normal range of motion. Neuro: Awake and alert, GCS 15, oriented to person, place, time, and situation. Cranial nerves II-XII grossly intact. Motor strength 5/5 in all extremities. Sensory grossly intact. Cerebellar exam normal. Normal gait. Psych: Awake, alert, with orientation to person, place and time. Behavior, mood, and affect are within normal limits. 18:45 Back: pain, that is moderate, of the lumbar area and low back area, ROM is painful, with all movement, normal spinal alignment noted, CVA tenderness, is absent, vertebral tenderness, is appreciated at T11, T12, L1, L2 and L3. Vital Signs: 10:30 BP 159 / 94; Pulse 97; Resp 16; Pulse Ox 96% on R/A; iw 12:11 BP 146 / 94; Pulse 91; Resp 26; Pulse Ox 97% on R/A; ph 13:30 BP 137 / 102; Pulse 91; Resp 24; Pulse Ox 95% on R/A; ph 15:00 BP 149 / 99; Pulse 94; Resp 24; Pulse Ox 96% on R/A; ph 16:30 BP 156 / 105; Pulse 92; Resp 22; Pulse Ox 96% on R/A; ph 17:30 BP 147 / 92; Pulse 90; Resp 20; Pulse Ox 95% on R/A; ph 18:35 BP 148 / 94; Pulse 87; Resp 18; Temp 97.8; Pulse Ox 95% on R/A; ph MDM: 17:48 Patient medically screened. kdr 18:45 Data reviewed: vital signs, nurses notes, lab test result(s), radiologic studies. kdr Counseling: I had a detailed discussion with the patient and/or guardian regarding: the historical points, exam findings, and any diagnostic results supporting the discharge/admit diagnosis, lab results, radiology results, the need for outpatient follow up. 11/16 11:10 Order name: Basic Metabolic Panel kdr 11/16 11:10 Order name: Blood Culture Adult (2) kdr 11/16 11:10 Order name: CBC with Diff; Complete Time: 13:06 [facility] 11/16 11:10 Order name: Ckmb kdr 11/16 11:10 Order name: CPK kdr 11/16 11:10 Order name: Lactate; Complete Time: 13:06 [facility] 11/16 11:10 Order name: LFT's kdr 11/16 11:10 Order name: Lipase; Complete Time: 13:06 [facility] 11/16 11:10 Order name: Procalcitonin; Complete Time: 13:06 kdr 11/16 11:10 Order name: Protime (+inr); Complete Time: 13:06 kdr 11/16 11:10 Order name: Ptt, Activated; Complete Time: 13:06 [facility] 11/16 11:10 Order name: Troponin (emerg Dept Use Only); Complete Time: 13:06 [facility] 11/16 11:12 Order name: Basic Metabolic Panel; Complete Time: 13:06 [facility] 11/16 11:10 Order name: Chest Single View XRAY; Complete Time: 13:06 [facility] 11/16 11:10 Order name: CT Head Brain wo Cont; Complete Time: 14:36 [facility] 11/16 11:10 Order name: CT Abd/Pelvis - W/Contrast; Complete Time: 13:06 [facility] 11/16 11:12 Order name: Blood Culture [facility] 11/16 11:12 Order name: CKMB Creatine Kinase MB; Complete Time: 13:06 [facility] 11/16 11:12 Order name: Creatine Phosphokinase; Complete Time: 13:06 [facility] 11/16 11:12 Order name: Liver (Hepatic) Function; Complete Time: 13:06 [facility] 11/16 12:06 Order name: CBC Smear Scan; Complete Time: 13:06 [facility] 11/16 14:39 Order name: MRI Lumbar Spine wo Con; Complete Time: 17:06 [facility] 11/16 11:10 Order name: Accucheck; Complete Time: 11:24 kdr 11/16 11:10 Order name: Cardiac monitoring; Complete Time: 11:24 kdr 11/16 11:10 Order name: EKG - Nurse/Tech; Complete Time: 18:39 [facility] 11/16 11:10 Order name: IV Saline Lock - Large Bore; Complete Time: 11:24 kdr 11/16 11:10 Order name: Labs collected and sent; Complete Time: :24 [facility] 11/16 11:10 Order name: O2 Per Protocol; Complete Time: : [facility] 11/16 11:10 Order name: O2 Sat Monitoring; Complete Time: : [facility] 11/16 16:24 Order name: EKG Electrocardiogram EDMS Administered Medications: 11:38 Drug: Zofran 4 mg Route: IVP; Site: left antecubital; ph 12:30 Follow up: Response: No adverse reaction ph 11:40 Drug: morphine 4 mg Route: IVP; Site: left antecubital; ph 12:30 Follow up: Response: No adverse reaction; Pain is decreased ph 14:23 Drug: Zofran 4 mg Route: IVP; Site: left antecubital; ph 15:00 Follow up: Response: No adverse reaction ph 14:25 Drug: morphine 4 mg Route: IVP; Site: left antecubital; ph 15:00 Follow up: Response: No adverse reaction; Pain is decreased ph 14:33 CANCELLED (Physician Discretion): vancoMYCIN 1.5 grams IVPB at calculated rate once ph 18:10 Drug: morphine 4 mg Route: IVP; Site: left antecubital; ph 18:41 Follow up: Response: No adverse reaction; Pain is decreased ph Disposition: 11/16/18 17:48 Discharged to Home. Impression: Compression fracture to T 11/12 and herniated disk L5-S1. - Condition is Stable. - Discharge Instructions: Spinal Compression Fracture. - Prescriptions for Tylenol- Codeine #3 300-30 mg Oral Tablet - take 2 tablet by ORAL route every 6 hours As needed; 30 tablet. Cyclobenzaprine 10 mg Oral Tablet - take 1 tablet by ORAL route every 8 hours As needed; 30 tablet. Medrol (Jb) 4 mg Oral Tablets, Dose Pack - take 1 tablet by ORAL route as directed - follow package instructions; 1 packet. - Medication Reconciliation Form, Thank You Letter form. - Follow up: Sharad Stewart MD; When: 1 - 2 days; Reason: If symptoms return, Further diagnostic work-up, Recheck today's complaints, Continuance of care, Re-evaluation by your physician. - Problem is new. - Symptoms have improved. Signatures: Dispatcher [employer] EDMS Rittger, Madhu, MD Jolene Solomon, RN RN iw Kelsi Ibarra RN RN ph Corrections: (The following items were deleted from the chart) 12:29 11:12 Spine Lumbar Wo Con+CT.RAD.BRZ ordered. EDMS EDMS 14:33 13:16 vancoMYCIN 1.5 grams IVPB at calculated rate once ordered. kdr ph 14:33 14:33 vancoMYCIN 1.5 grams IVPB at calculated rate once ordered. ph ph 18:42 17:48 11/16/2018 17:48 Discharged to Home. Impression: Compression fracture to T 11/12 ph and herniated disk L5-S1. Condition is Stable. Forms are Medication Reconciliation Form, Thank You Letter, Antibiotic Education, Prescription Opioid Use. Follow up: A Stewart; When: 1 - 2 days; Reason: If symptoms return, Further diagnostic work-up, Recheck today's complaints, Continuance of care, Re-evaluation by your physician. Problem is new. Symptoms have improved. kdr
[2018-11-16 19:13] VITALS: O2SAT 95
[2018-11-16 19:14] VITALS: BP 148/94; TEMP 97.8
--- NOTE | 2018-11-17 09:46 | EKG ---
Test Date: 2018-11-16 Test Time: 12:10:30 [employer] Supervisor: KIM MEASUREMENT RESULTS: Intervals: Rate: 92 ND: 168 QRSD: 82 QT: 364 QTc: 450 [place]: P: 35 ND: 168 QRS: 5 T: 66 INTERPRETIVE STATEMENTS: Normal sinus rhythm Septal infarct, age undetermined Possible Inferior infarct, age undetermined Abnormal ECG Compared to ECG 09/07/2018 12:08:14 No significant changes Electronically Signed On 11-17-18 09:43:14 CDT by Bacilio Ibarra
== END 2018-11-16 18:42 | disposition home or self-care (01) ==
LOC: ER 09:50
DX: M48.54XA Collapsed vertebra, not elsewhere classified, thoracic region, initial encounter for fracture (principal); M51.27 Other intervertebral disc displacement, lumbosacral region; I10 Essential (primary) hypertension; E78.5 Hyperlipidemia, unspecified; Z79.82 Long term (current) use of aspirin; Z88.2 Allergy status to sulfonamides; Z86.73 Personal history of transient ischemic attack (TIA), and cerebral infarction without residual deficits; Z95.4 Presence of other heart-valve replacement
CPT/HCPCS: 93005; 87040 ×2; 85025; 80048; 36415; 82550; 85610; 80076; 83605; 85730; 84484; 82553; 83690; 84145; 70450; 74177; 71045; 72148; 96375; 96374; 99284; Q9967; J2405 ×2

== ENCOUNTER 2018-11-20 17:19 | Observation (INO) | payer OTHER, BC ==
--- OUTSIDE RECORDS SUMMARY | 2018-11-20 17:24 | XMS REPORT | Clinical Summary ---
:1950 Author Organization [facility] Address [address] [place] [address] Care Team Providers Name Role Phone Drew Stewart MD Primary Care Provider Allergies Active Allergy Reactions Severity Noted Date Comments Sulfa (Sulfonamide Antibiotics) Rash Low 08/15/2017 Medications Medication Sig Dispensed Refills Start End Date Status Date simvastatin (ZOCOR) 20 11 Active MG tablet 8 aspirin (ECOTRIN) 81 MG Take 81 mg 0 Active enteric coated tablet by mouth daily. escitalopram (LEXAPRO) Take 20 mg 0 Active 20 MG tablet by mouth daily. ramipril (ALTACE) 10 MG Take 10 mg 0 Active capsule by mouth 3 (three) times a day. hydroCHLOROthiazide 2 Active (HYDRODIURIL) 12.5 MG 8 tablet amLODIPine (NORVASC) 5 2 Active mg tablet 8 baclofen (LIORESAL) 10 Take 1 90 tablet 2 11/30/19 Active MG tablet tablet (10 9 19 mg total) by mouth 3 (three) times a day for 90 days. amIODarone (PACERONE) Take 1 30 tablet 0 12/18/19 200 MG tablet tablet (200 8 18 mg total) by mouth daily for 30 days. aspirin 81 mg chewable Chew 1 30 tablet 0 12/18/19 tablet tablet (81 8 18 mg total) daily for 30 days. baclofen (LIORESAL) 10 Take 1 90 tablet 0 12/14/19 Discontinued MG tablet tablet (10 8 18 mg total) by mouth every 8 (eight) hours for 30 days. docusate sodium (COLACE) Take 1 30 capsule 0 12/18/19 100 MG capsule capsule (100 8 18 mg total) by mouth daily for 30 days. doxazosin (CARDURA) 1 MG Take 1 30 tablet 0 12/18/19 tablet tablet (1 mg 8 18 total) by mouth daily for 30 days. escitalopram (LEXAPRO) Take 1 30 tablet 0 12/18/19 20 MG tablet tablet (20 8 18 mg total) by mouth every evening for 30 days. ezetimibe (ZETIA) 10 mg Take 1 30 tablet 0 12/18/19 tablet tablet (10 8 18 mg total) by mouth nightly for 30 days. furosemide (LASIX) 20 mg Take 1 30 tablet 0 12/18/19 tablet tablet (20 8 18 mg total) by mouth daily for 30 days. metoprolol tartrate 0.5 tablets 30 tablet 0 12/14/19 Discontinued (LOPRESSOR) 25 mg tablet (12.5 mg 8 18 total) by feeding tube route every 12 (twelve) hours for 30 days. oxybutynin (DITROPAN) 5 Take 0.5 30 tablet 0 12/18/19 MG tablet tablets (2.5 8 18 mg total) by mouth 2 (two) times a day for 30 days. ramipril (ALTACE) 10 MG Take 1 30 capsule 0 12/18/19 capsule capsule (10 8 18 mg total) by mouth daily for 30 days. simvastatin (ZOCOR) 20 Take 1 30 tablet 0 12/14/19 Discontinued MG tablet tablet (20 8 18 mg total) by mouth nightly for 30 days. warfarin (COUMADIN) 3 MG , 30 tablet 1 11/17/19 tablet 8 19 baclofen (LIORESAL) 10 Take 1 90 tablet 3 01/13/20 MG tablet tablet (10 8 18 mg total) by mouth every 8 (eight) hours for 30 days. amIODarone (PACERONE) Take 200 mg 0 07/04/20 Discontinued 200 MG tablet by mouth 18 daily. doxazosin (CARDURA) 1 MG Take 1 mg by 0 01/24/20 Discontinued tablet mouth 18 nightly. baclofen (LIORESAL) 10 2 08/31/19 Discontinued MG tablet 8 19 Active Problems Problem Noted Date Late effect [...] S/P AVR 08/17/2017 Coronary artery disease involving poarch coronary artery of poarch heart 08/17 without angina pectoris Post-op pain 08/17/2017 Acute postoperative pulmonary insufficiency, Ventilator dependent, post 2017 tracheostomy Encounters Date Type Specialty Care Team Description 08/31/2018 Refill Physical Medicine and Casimiro, Marlena Bhardwaj MA 07/04/2018 Clinical Support Physical Medicine and Telma Ramos Right spastic hemiparesis (HCC) (Primary Dx); Rehabilitation MMD BOUBACAR Kurtz (obstructive sleep apnea); Aphasia as late effect [...] Ramos Right spastic hemiparesis (Primary Dx); Rehabilitation M., MD BOUBACAR (obstructive sleep apnea); Spasticity; Late effect of stroke; Right foot drop; Neurogenic bladder; Aphasia as late effect of cerebrovascular accident 12/13/2017 Office Visit Physical Medicine and Telma Ramos Late effect of stroke (Primary Dx); Marlena Devries MD Right spastic hemiparesis; Aphasia as late effect of cerebrovascular accident; BOUBACAR (obstructive sleep apnea); Right foot drop; Spasticity; Neurogenic bladder after 11/19/2017 Immunizations Name Dates Previously Given Next Due [...] Taken Blood Pressure 100/77 07/04/2018 1:39 PM PREPARATORY TECHNICIAN Pulse 64 07/04/2018 1:39 PM PREPARATORY TECHNICIAN Temperature - - Respiratory Rate - - Oxygen Saturation - - Inhaled Oxygen Concentration - - Weight - - Height - - Body Mass Index - - Plan of Treatment Health Maintenance Due Date Last Done Comments SHINGLES VACCINES (#1) 1999 PNEUMOCOCCAL POLYSACCHARIDE VACCINE AGE 65 2014 AND OVER 65+ PNEUMOCOCCAL VACCINE (2 of 2 - PPSV23) 09/07/2018 09/07/2017 INFLUENZA VACCINE 03/07/2019 09/07/2017, 08/24/2017 COLON CANCER SCREENING 09/09/2027 09/09/2017 Implants Implanted Type Area Director Mobile Device Shelf Model / Identifier Expiration Serial / Date Lot Valve Aortic Hemo Peric Tiss W/[place] Tech Cuff 23mm Trifecta - [id number] - [id number] Cardiovascular N/A: [facility] 02/12/2021 [id number] / Implanted: Qty: 1 on 08/17/2017 by Bakari Elias MD Implants Heart STRUCTURAL [id number] / HEART [id number] Clip Ligtng Weck Hemoclip Plus W/ Tape Ti Med - [id number] Medical Clips for N /A: N/A TELEFLEX [id number] / Implanted: 08/17/2017 (Quantity not on file) Internal Use MEDICAL / Clip Ligtng Weck Hemoclip Plus W/ Tape Ti Sm Strngpnt - [id number] Medical Clips for N/A: N/A WECK CLOSURE [id number] / Implanted: 08/17/2017 (Quantity not on file) Internal Use SYSTEMS / Clip Ligtng Weck Hemoclip Plus W/ Tape Ti Med - [id number] Medical Clips for N /A: N/A TELEFLEX [id number] / Implanted: 08/24/2017 (Quantity not on file) Internal Use MEDICAL / Patch Biosurg Selnt Fibrin Absrbl 9.5x4.8cm Tachosil - [id number] Surgical N/A : N/A JACK [id number] / Implanted: 08/17/2017 (Quantity not on file) Implants; BIOSCIENCE / Expanders; Extenders; Surgical Wires Patch Biosurg Selnt Fibrin Absrbl 9.5x4.8cm Tachosil - [id number] Surgical N/A : N/A JACK [id number] / Implanted: 08/17/2017 (Quantity not on file) Implants; BIOSCIENCE / Expanders; Extenders; Surgical Wires Patch Biosurg Selnt Fibrin Absrbl 9.5x4.8cm Tachosil - [id number] Surgical N/A : N/A JACK [id number] / Implanted: 08/17/2017 (Quantity not on file) Implants; BIOSCIENCE / Expanders; Extenders; Surgical Wires Sutter Perph Vasclr Ptfe 1.2x10cm 1.65mm - [id number] Vascular Graft N/A: N/A BARD PERIPHERAL 02/01/2022 [id number] / Implanted: 08/17/2017 (Quantity not on file) VASCULAR / [id number] Sutter Perph Vasclr Ptfe 1.2x10cm 1.65mm - [id number] Vascular Graft N/A: N/A BARD PERIPHERAL 06/03/2022 [id number] / Implanted: 08/17/2017 (Quantity not on file) VASCULAR / [id number] Explanted Type Area Director Mobile Device Shelf Model / Identifier Expiration Serial / Date Lot Lead Pace Galileo Mycrdl Unipol Tmpry Streamline - [id number] Cardiovascular N/A : [employer] [place] - [id number] / Implanted: 08/17/2017 (Quantity not on file) Implants N/A CARDIAC SRGRY / Lead Pace Galileo Mycrdl Unipol Tmpry Streamline - [id number] Cardiovascular N/A : [employer] [place] - [id number] / Implanted: 08/17/2017 (Quantity not on file) Implants N/A CARDIAC SRGRY / Procedures Procedure Name Priority Date/Time Associated Comments Diagnosis KS NEEDLE EMG GUIDANCE Routine 07/04/2018 1:15 Right spastic Results for this FOR CHEMODENERVATION PM PREPARATORY TECHNICIAN hemiparesis (HCC) procedure are in the results section. KS CHEMODENERVATION 1 Routine 07/04/2018 1:15 Right spastic Results for this EXTREMITY 5 OR MORE PM PREPARATORY TECHNICIAN hemiparesis (HCC) procedure are in MUSCLES the results section. KS NEEDLE EMG GUIDANCE Routine 04/03/2018 1:00 Right spastic Results for this FOR CHEMODENERVATION PM CDT hemiparesis procedure are in the results section. KS CHEMODENERVATION 1 Routine 04/03/2018 1:00 Right spastic Results for this EXTREMITY 5 OR MORE PM CDT hemiparesis procedure are in MUSCLES the results section. KS NEEDLE EMG GUIDANCE Routine 12/26/2017 1:15 Right spastic Results for this FOR CHEMODENERVATION PM CDT hemiparesis procedure are in the results section. KS CHEMODENERVATION ONE Routine 12/26/2017 1:15 Right spastic Results for this EXTREMITY 1-4 MUSCLE PM CDT hemiparesis procedure are in the results section. after 11/19/2017 Results Botulinum Injection (07/04/2018 1:15 PM PREPARATORY TECHNICIAN) Narrative Performed At Telma Ramos MD 07/04/20185:28 PM Botulinum Injection Date/Time: 07/04/2018 1:47 PM Performed by: Telma Ramos MD Authorized by: Telma Ramos MD Consent: Consent obtained:Written Consent given by:Patient Risks discussed:Bleeding, excessive weakness, muscle atrophy, venous thrombosis and pain and discomfort Benefits discussed:Decreased muscle tightness, increased joint range of motion and decreased pain Trafalgar protocol: Procedure explained and questions answered to [...] No Procedure details: Agent Botulinum Toxin:Dysport (lot [id number] exp 01/04/2019) Total Units Injected:1500 Dysport Medications [...] joint range of motion and decreased pain Trafalgar protocol: Procedure explained and questions answered to [...] joint range of motion and decreased pain Trafalgar protocol: Procedure explained and questions answered to [...] There was no blood retrieved on aspiration. after 11/19/2017 Insurance Payer Benefit Plan / Group Subscriber ID Type Phone Address MEDICARE MEDICARE PART A AND B xxxxxxxxxx Medicare [place], [place] BCBS BCBS PAR/TRAD PLAN xxxxxxxxxxxx Indemnity Advance Directives Patient has advance care planning documents on file. For more information, please contact:Alonso Garza[address] [facility] [place] [address]
--- OUTSIDE RECORDS SUMMARY | 2018-11-20 17:24 | XMS REPORT | Continuity of Care Document ---
:1950 Author Organization Interface Problems Problem Status Onset Date Classification Date Comments Source Reported Medications Medication Details Route Status Patient Ordering Order Source Instructions Provider Date Allergies, Adverse Reactions, Alerts Substance Category Reaction Severity Reaction Status Date Comments Source type Reported Sulfa Rash Allergy to Active [facility] (Sulfonamid Substance 8 [facility] - e [...] - [facility] Estimat 79 90 08/10 [facility]. Studies Glomerular mL/min /2017 [facility] Filtration Rate [facility] Creatinine 0.95 0.61 - 08/10 [facility] St[facility] Studies mg/dL 1.24 [facility] [place] [facility] Blood 6.2 K/uL 4.3 - 10.9 08/10 [facility] St[facility] Studies Count /2017 [facility] Red Cell 13.3 % 12.1 - 08/10 [facility] St. Studies Distribution 15.2 /2017 [facility] Width [facility] Red Blood Count 5.07 4.33 - 01 [facility] St. Studies M/uL 5.43 /2017 [facility] Platelet Count 279 K/uL 152 - 406 08/10 [facility] St. Studies /2017 [facility] Neutrophils % 61.2 % 41.7 - 08/10 [facility] St. Studies 73.7 /2017 [facility] Monocytes % 8.6 % 3.3 - 12.3 08/10 [facility] St. Studies /2017 [facility] Mean Platelet 8.7 fL 7.6 - 11.3 08/10 [facility] St. Studies Volume /2017 [facility] Mean 87.1 fL 80 - 100 08/10 [facility] St. Studies Corpuscular /2017 [facility] Volume [facility] Mean 33.8 32.0 - 08/10 [facility] St. Studies Corpuscular g/dL 36.0 /2017 [facility] Hemoglobin [facility] Mean 29.4 pg 27.0 - 08/10 [facility] St. Studies Corpuscular 35.0 /2017 [facility] Hemoglobin [facility] Lymphocytes % 26.2 % 15.3 - 08/10 [facility] St. Studies 44.8 /2017 [facility] Hemoglobin 14.9 13.6 - 08/10 [facility] St. Studies g/dL 17.9 /2017 [facility] Hematocrit 44.2 % 39.6 - 08/10 [facility] St. Studies 49.0 /2017 [facility] Eosinophils % 3.2 % 0 - 4.4 08/10 [facility] St. Studies /2017 [facility] Basophils % 0.8 % 0 - 1.3 08/10 [facility] St. Studies /2017 [facility] Absolute 3.8 K/uL 1.8 - 8.0 08/10 [facility] St. Studies Neutrophil /2017 [facility] Absolute 0.5 K/uL 0.1 - 1.3 08/10 [facility]. Studies Monocytes (CBC) /2017 [facility] Absolute 1.6 K/uL 0.7 - 4.9 08/10 [facility] St. Studies Lymphocytes /2017 [facility] (CBC) [facility] Absolute 0.2 K/uL 0 - 0.5 08/10 [facility] St. Studies Eosinophils /2017 [facility] (CBC) [facility] Absolute 0.0 K/uL 0 - 0.5 08/10 [facility] St. Studies Basophils (CBC) /2017 [facility] Vital Signs Vital Sign Value Date Comments Source Heart Rate 83 08/11/2017 [facility] Systolic [facility]mm Hg) 120 08/11/2017 [facility] Diastolic (mm Hg) 81 08/11/2017 [facility] Temperature Oral (F) 97.7 F [facility]/11[facility]2017 [facility] 68 08/10/2017 [facility] Weight 200.00 08/10/2017 [facility] Encounters Location Location Encounter Encounter Reason Attending ADM DC Status Source Details Type Number For Provider Date Date Visit MATTHEW Mccormick Departed [id number] 08/11 08/11 [facility] Procedures Procedure Code Date Perfomer Comments Source
--- NOTE | 2018-11-20 18:25 | RAD REPORT ---
EXAM DESCRIPTION: CT - Head Brain Wo Cont - 11/20/2018 6:00 pm CLINICAL HISTORY: hallucinations Headache, drowsiness COMPARISON: Head Brain Wo Cont dated 11/16/2018; Head Brain Wo Cont dated 04/25/2018 TECHNIQUE: All CT scans are performed using dose optimization technique as appropriate and may inclu de automated exposure control or mA/KV adjustment according to patient size. FINDINGS: No intracranial hemorrhage, hydrocephalus or extra-axial fluid collection.Gliosis in the r ight frontal lobe is seen compatible with old infarction.No areas of brain edema or evidence of midli ne shift. The paranasal sinuses and mastoids are clear. The calvarium is intact. Vertebral atherosclerosis note d. IMPRESSION: No acute intracranial abnormality.
[2018-11-20 18:27] LABS: Absolute Monocytes 0.6 K/uL (0.1-1.3); Absolute Neutrophil 6.6 K/uL (1.8-8.0); Basophils % 0.5 % (0-1.3); Eosinophils % 0.2 % (0-4.4); Hematocrit 44.1 % (39.6-49.0); Lymphocytes % 12.2 % (15.3-44.8); MPV 7.6 fL (7.6-11.3); Monocytes % 7.3 % (3.3-12.3); RBC Red Blood Cell Count 5.11 M/uL (4.33-5.43)
[2018-11-20 18:39] LABS: Potassium 3.8 mmol/L (3.5-5.1)
--- NOTE | 2018-11-20 18:54 | ER ---
Nurse's Notes [facility] Name: Erick Rodriguez Age: 68 yrs Sex: Male : 1950 Arrival Date: 11/20/2018 Time: 17:21 Bed 30 Private MD: Sharad Stewart C Diagnosis: Hallucinations, unspecified;Adverse effect of antiparkinsonism drugs and other central muscle-tone depressants Presentation: 11/20 17:25 Presenting complaint: Patient states: hallucinating and drowsy since being discharged sv from here and was sent home with prescriptions including pain meds and has been hallucinating since. Daughter reports calling Dr Stewart's office today and they told him to stop taking his hydrocodone. Transition of care: patient was not received from another setting of care. Onset of symptoms is unknown. Care prior to arrival: None. 17:25 Method Of Arrival: Wheelchair sv 17:25 Acuity: CRISS 3 sv 17:46 Risk Assessment: Do you want to hurt yourself or someone else? Patient reports no mg2 desire to harm self or others. Initial Sepsis Screen: Does the patient meet any 2 criteria? No. Patient's initial sepsis screen is negative. Does the patient have a suspected source of infection? No. Patient's initial sepsis screen is negative. Triage Assessment: 18:18 Pain: Denies pain. mg2 Historical: - Allergies: 17:26 Sulfa (Sulfonamide Antibiotics); sv - Home Meds: 17:54 amlodipine 5 mg tab 1 tab BID [Active]; aspirin 81 mg Oral TbEC 1 tab once daily mg2 [Active]; hydrochlorothiazide 12.5 mg Oral tab 1 tab once daily [Active]; Lexapro 20 mg Oral tab 1 tab once daily [Active]; meclizine 12.5 mg Oral tab 1 tabs 2 times per day [Active]; ramipril 10 mg Oral cap 1 cap 2 times per day [Active]; Zocor 20 mg Oral tab 1 tab once daily [Active]; - PMHx: 17:26 Aortic valve replacement (cow); CVA; Hyperlipidemia; Hypertension; sv - Immunization history:: Flu vaccine status is unknown. - Social history:: Smoking status: unknown. - Ebola Screening: : No symptoms or risks identified at this time. Screenin:45 Abuse screen: Denies threats or abuse. Denies injuries from another. Nutritional mg2 screening: No deficits noted. Tuberculosis screening: No symptoms or risk factors identified. Fall Risk None identified. Assessment: 17:45 General: Appears in no apparent distress. comfortable, Behavior is calm, cooperative. mg2 Neuro: Level of Consciousness is awake, alert, obeys commands. Neuro: Reports hallucinations. Cardiovascular: Capillary refill < 3 seconds Patient's skin is warm and dry. 17:45 Respiratory: Airway is patent Respiratory effort is even, unlabored, Respiratory mg2 pattern is regular, symmetrical. GI: No signs and/or symptoms were reported involving the gastrointestinal system. : No signs and/or symptoms were reported regarding the genitourinary system. EENT: No signs and/or symptoms were reported regarding the EENT system. Derm: Skin is intact, is healthy with good turgor, Skin is pink, warm \T\ dry. normal. Musculoskeletal: Circulation, motion, and sensation intact. Capillary refill < 3 seconds. 17:53 Reassessment: patient sent to ct scan. mg2 19:16 Reassessment: patient informed about the need for hospitalization. mg2 22:19 Reassessment: Ryan Rodriguez (son)- [phone], Angelique (daughter)- [phone]. mg2 23:59 Reassessment: charting is continued in the [facility]. mg2 Vital Signs: 17:27 BP 172 / 99; Pulse 96; Resp 18; Temp 98.6; Pulse Ox 95% ; sv 19:15 BP 152 / 103; Pulse 82; Resp 18; Pulse Ox 96% on R/A; Pain 0/10; mg2 17 00:56 BP 153 / 103; Pulse 83; Resp 18; Temp 98(O); Pulse Ox 94% on R/A; Pain 0/10; mg2 ED Course: 16 17:21 Patient arrived in ED. mr 17:22 Sharad Stewart MD is Private Physician. mr 17:26 Triage completed. sv 17:27 Arm band placed on. sv 17:30 Jack Chapman MD is Attending Physician. gs 17:38 Angel Guzman, INDIRA is Primary Nurse. mg2 17:46 Patient has correct armband on for positive identification. mg2 17:46 No provider procedures requiring assistance completed. mg2 17:[address] vm2 17:59 CT completed. Patient tolerated procedure well. Patient moved back from CT. pr 18:00 CT Head Brain wo Cont In Process Unspecified. EDMS 18:17 Inserted saline lock: 20 gauge in left forearm, using aseptic technique. Blood mg2 collected. 18:52 Sharad Stewart MD is Hospitalizing Provider. 11/21 00:57 Patient admitted, IV remains in place. mg2 Administered Medications: No medications were administered Outcome: 11/20 18:53 Decision to Hospitalize by Provider. 11/21 00:57 Admitted to Tele accompanied by tech, via stretcher, room 402, with chart, Report mg2 called to INDIRA Wayne Condition: stable Instructed on the need for admit, Demonstrated understanding of instructions. 01:11 Patient left the ED. mg2 Signatures: Dispatcher [employer] EDPretty Merchant, RN RN Amarilys Olivarez mr Mathis, Sarina Humphrey [facility] Jack Chapman MD MD gs Gardose, Michele, RN RN mg2 Corrections: (The following items were deleted from the chart) 11/20 17:27 17:25 Acuity: CRISS 4 sv sv 18:18 17:46 Patient did not have IV access during this emergency room visit. mg2 mg2
--- NOTE | 2018-11-20 18:54 | EDPHYS ---
Physician Documentation [facility] Name: Erick Rodriguez Age: 68 yrs Sex: Male : 1950 Arrival Date: 11/20/2018 Time: 17:21 Bed 30 Private MD: Sharad Stewart C ED Physician Jack Chapman HPI: 11/20 18:44 This 68 yrs old Male presents to ER via Wheelchair with complaints of gs Hallucinations. 18:44 Onset: The symptoms/episode began/occurred yesterday. Severity of symptoms: At their gs worst the symptoms were moderate in the emergency department the symptoms have resolved. The patient has not experienced similar symptoms in the past. recent meds norco,prednisone,muscle relaxant. Historical: - Allergies: 17:26 Sulfa (Sulfonamide Antibiotics); sv - Home Meds: 17:54 amlodipine 5 mg tab 1 tab BID [Active]; aspirin 81 mg Oral TbEC 1 tab once daily mg2 [Active]; hydrochlorothiazide 12.5 mg Oral tab 1 tab once daily [Active]; Lexapro 20 mg Oral tab 1 tab once daily [Active]; meclizine 12.5 mg Oral tab 1 tabs 2 times per day [Active]; ramipril 10 mg Oral cap 1 cap 2 times per day [Active]; Zocor 20 mg Oral tab 1 tab once daily [Active]; - PMHx: 17:26 Aortic valve replacement (cow); CVA; Hyperlipidemia; Hypertension; sv - Immunization history:: Flu vaccine status is unknown. - Social history:: Smoking status: unknown. - Ebola Screening: : No symptoms or risks identified at this time. ROS: 18:44 All other systems are negative. gs Exam: 18:44 Head/Face: Normocephalic, atraumatic. Eyes: Pupils equal round and reactive to light, gs extra-ocular motions intact. Lids and lashes normal. Conjunctiva and sclera are non-icteric and not injected. Cornea within normal limits. Periorbital areas with no swelling, redness, or edema. ENT: Nares patent. No nasal discharge, no septal abnormalities noted. Tympanic membranes are normal and external auditory canals are clear. Oropharynx with no redness, swelling, or masses, exudates, or evidence of obstruction, uvula midline. Mucous membranes moist. Neck: Trachea midline, no thyromegaly or masses palpated, and no cervical lymphadenopathy. Supple, full range of motion without nuchal rigidity, or vertebral point tenderness. No Meningismus. Chest/axilla: Normal chest wall appearance and motion. Nontender with no deformity. No lesions are appreciated. Cardiovascular: Regular rate and rhythm with a normal S1 and S2. No gallops, murmurs, or rubs. Normal PMI, no JVD. No pulse deficits. Respiratory: Lungs have equal breath sounds bilaterally, clear to auscultation and percussion. No rales, rhonchi or wheezes noted. No increased work of breathing, no retractions or nasal flaring. Abdomen/GI: Soft, non-tender, with normal bowel sounds. No distension or tympany. No guarding or rebound. No evidence of tenderness throughout. Back: No spinal tenderness. No costovertebral tenderness. Full range of motion. Skin: Warm, dry with normal turgor. Normal color with no rashes, no lesions, and no evidence of cellulitis. 18:44 Constitutional: The patient appears alert, awake. 18:44 Musculoskeletal/extremity: r sided weakness paresis after cva. 18:44 Psych: Exam negative for acute changes, hallucinations, delusions, inappropriate behavior, psychosis, paranoia, Behavior/mood is Vital Signs: 17:27 BP 172 / 99; Pulse 96; Resp 18; Temp 98.6; Pulse Ox 95% ; sv 19:15 BP 152 / 103; Pulse 82; Resp 18; Pulse Ox 96% on R/A; Pain 0/10; mg2 11/21 00:56 BP 153 / 103; Pulse 83; Resp 18; Temp 98(O); Pulse Ox 94% on R/A; Pain 0/10; mg2 MDM: 11/20 17:41 Patient medically screened. gs 18:44 Differential diagnosis: drug withdrawal. acute psychotic break, depression, medication gs reaction, cva. Data reviewed: vital signs, nurses notes, lab test result(s), radiologic studies. Counseling: I had a detailed discussion with the patient and/or guardian regarding: the historical points, exam findings, and any diagnostic results supporting the discharge/admit diagnosis, lab results, the need for further work-up and treatment in the hospital. Response to treatment: the patient's symptoms have markedly improved after treatment. Physician consultation: Sharad Stewart MD and will see patient in ED, in inpatient room. 11/20 17:48 Order name: CBC with Diff; Complete Time: 18:43 11/20 17:48 Order name: Basic Metabolic Panel; Complete Time: 18:43 11/20 17:48 Order name: CT Head Brain wo Cont; Complete Time: 18:43 11/20 19:00 Order name: Consistent Carb (ADA) 1800 Lalo EDMS Administered Medications: No medications were administered Disposition: 11/20/18 18:53 Hospitalization ordered by Sharad Stewart for Observation. Preliminary diagnosis are Hallucinations, unspecified, Adverse effect of antiparkinsonism drugs and other central muscle-tone depressants. - Bed requested for Telemetry/MedSurg (observation). - Status is Observation. mg2 - Condition is Stable. - Problem is new. - Symptoms have improved. UTI on Admission? No Signatures: Dispatcher [employer] EDMS Pretty Silva RN RN sv Woody, Diana, RN RN dw Ballard, Brenda, RN RN bb Starr, Gregory, MD MD gs Gardose, Michele, RN RN mg2 Corrections: (The following items were deleted from the chart) 20:49 18:53 Hospitalization Ordered by A Terry YU for Observation. Preliminary diagnosis is dw Hallucinations, unspecified; Adverse effect of antiparkinsonism drugs and other central muscle-tone depressants. Bed requested for Telemetry/MedSurg (observation). Status is Observation. Condition is Stable. Problem is new. Symptoms have improved. UTI on Admission? No. gs 11/21 00:31 11/20 20:49 11/20/2018 18:53 Hospitalization Ordered by A Terry YU for Observation. bb Preliminary diagnosis is Hallucinations, unspecified; Adverse effect of antiparkinsonism drugs and other central muscle-tone depressants. Bed requested for [facility] ER HOLD. Status is Observation. Condition is Stable. Problem is new. Symptoms have improved. UTI on Admission? No. dw 11/21 00:32 00:31 11/20/2018 18:53 Hospitalization Ordered by A Terry YU for Observation. krista Preliminary diagnosis is Hallucinations, unspecified; Adverse effect of antiparkinsonism drugs and other central muscle-tone depressants. Bed requested for Telemetry/MedSurg (observation). Status is Observation. Condition is Stable. Problem is new. Symptoms have improved. UTI on Admission? No. bb 01:11 00:32 11/20/2018 18:53 Hospitalization Ordered by A Terry YU for Observation. mg2 Preliminary diagnosis is Hallucinations, unspecified; Adverse effect of antiparkinsonism drugs and other central muscle-tone depressants. Bed requested for Telemetry/MedSurg (observation). Status is Observation. Condition is Stable. Problem is new. Symptoms have improved. UTI on Admission? No. bb
[2018-11-21 01:46] VITALS: BMI 23.6
--- NOTE | 2018-11-21 06:03 | HP ---
Date of Admission: 11/20/2018 Chief Complaint: Confusion and hallucination. History Of Present Illness: This is a 68-year-old male patient living at home with his daughter, came into emergency room few days ago with back pain. The patient was evaluated in the ER with radiology imaging studies and was diagnosed as having compression fracture of T11 and T12. He was discharged to go home with Medrol Dosepak, hydrocodone, and Norflex as a muscle relaxant. He was taking this medication as prescribed and yesterday he started to have some confusion problem. Today, he was having more confusion, more hallucinations, and daughter contacted my office and she was advised to bring patient to the emergency room. After he was evaluated in ER, he was admitted to the hospital for observation. The patient's daughter is concerned about patient's safety with this confusion and hallucinations at home. No vomiting, diarrhea. No bleeding. Allergies: SULFA. Medications: List reviewed. Review of Systems: CONCRETE PANEL INSTALLER: As mentioned above. All other systems reviewed and negative. Social History: Negative for smoking or alcohol use. Family History: Significant for coronary artery disease. Past Surgical History: Significant for surgery for hip fracture done in September 2018; bioprosthetic aortic valve replacement on August 17, 2017; coronary artery bypass surgery on August 17, 2017; right internal carotid artery endarterectomy in 2008; radiation therapy for prostate cancer in 2006, and prostatectomy in 2004. Past Medical History: Significant for prostate cancer, hypertension, paroxysmal atrial fibrillation, hypothyroidism, sleep apnea, aortic valve stenosis, status post bioprosthetic aortic valve, gastroesophageal reflux disease, depression, hyperlipidemia, impaired fasting glucose, hypothyroidism, stroke, rib fracture, and hip fracture. Physical Examination: Vital Signs: When he came into emergency room, blood pressure 172/99, pulse 96 , respiratory rate 18, temperature 98.6, pulse ox 95%. General: Awake, alert, oriented, not in distress. HEENT: Head atraumatic, normocephalic. Conjunctivae nonerythematous. Sclerae white. Mouth, no thrush or edema noted. Ears/Nose, no mass, lesion, discharge noted. Neck: Supple. No JVD, lymph nodes, bruit, thyromegaly noted. Lungs: Bilateral good equal air entry. Clear to auscultation. No rhonchi. No rales. Heart: Normal heart sounds, no murmur or gallop. Abdomen: Soft, bowel sounds normal. No guarding, rigidity, tenderness, mass, hepatosplenomegaly, distention, or bruit noted. Extremities: No leg edema. No calf tenderness. Skin: No rash, ulcer, cellulitis. Lymphatics: No lymph node enlargement in neck, supraclavicular, infraclavicular region. Neuro: Shows right-sided hemiparesis. Chest: Unremarkable. External Genitalia: Deferred. Rectal: Deferred. Laboratory Data: White count 8.3, hemoglobin 14.6, platelets 402. Sodium 137, potassium 3.8, chloride 101, bicarb 26, BUN 23, creatinine 1.03, glucose 124. CAT scan of the head without contrast shows no evidence of any acute intracranial abnormality. Impression: 1. Altered mental status. 2. Stroke with right-sided hemiparesis. 3. Hypertension. 4. Hyperlipidemia. 5. Coronary artery disease. 6. Paroxysmal atrial fibrillation. 7. Compression fracture of T11 and T12 spine. Plan: We will admit the patient to hospital for further evaluation and management of this problem. The patient is appropriate for observation. We will go ahead and advise patient not to take any steroid medication, muscle relaxant, or pain medication that he was taking at home as all of those medication could have contributed to his confusion and hallucination problem. I will see him tomorrow morning for followup. He already had appointments scheduled for him to visit Dr. Durant as a neurosurgeon tomorrow and he will keep this appointment. I will see him tomorrow morning, if he is stable, we will plan to discharge him to go home. Details on plan of treatment discussed with the patient and his daughter. DAWNA/SEBASTIAN Voice ID: [id number]
[2018-11-21] MEDS ORDERED: ASPIRIN 81 MG CHEWABLE TABLET PO SCH (09:00)
[2018-11-21] MEDS ORDERED: AMLODIPINE 5 MG TAB PO SCH (09:00)
[2018-11-21] MEDS ORDERED: RAMIPRIL 5 MG CAP PO SCH (09:00)
[2018-11-21 09:07] VITALS: BP 148/88; TEMP 98.8
[2018-11-21 09:41] VITALS: O2SAT 98
--- NOTE | 2018-11-22 16:52 | DS ---
Date of Discharge: 11/21/2018 Disposition: Discharged to go home. Physical Examination: HEENT: Unremarkable. Lungs: Clear to auscultation. Heart: Sounds normal. Abdomen: Soft. Bowel sounds normal. No guarding, rigidity, tenderness, or distention. Extremities: No leg edema. Hospital Course: A 68-year-old male patient admitted to the hospital with confusion and hallucinatio ns. Please see dictated H and P for more information. After the patient was evaluated in the ER, he was admitted to the hospital with his altered mental status problem. The patient's blood work, CBC, and chemistry was unremarkable. CAT scan of the head was negative for any acute changes. He was af ebrile. He was kept in the hospital overnight where his condition remained stable. This morning, no new problems or complaints reported. Daughter was present with him at bedside. The patient's confu tramaine and hallucination were thought to be due to combination of hydrocodone, methylprednisolone, and Norflex that he just started taking it within last 2-3 days, which was prescribed from emergency room when he came with the back pain. He has compression fracture of T11, T12 spine and today he has alexa ointment to see Dr. Durant in [place] for consideration of kyphoplasty procedure. The patient will k eep this appointment today upon discharge. Discharge Medications And Instructions: 1.Continue all prior home medications, except stop hydrocodone, methylprednisolone, Norflex. 2.Follow up at my office per scheduled appointment. Final Diagnoses: 1.Altered mental status, resolved. 2.Stroke with right-sided hemiparesis. 3.Hypertension. 4.Hyperlipidemia. 5.Coronary artery disease. 6.Paroxysmal atrial fibrillation. 7.Compression fracture of T11 and T12 spine. DAWNA/MODL Voice ID: [id number] Report ID: [id number]
== END 2018-11-21 08:55 | disposition home or self-care (01) ==
LOC: ER 17:19 → ERHOLD 18:58 → 4TH 11-21 00:55
PROVIDERS: ADMIT Internal Medicine; ATTEND Internal Medicine
DX: R44.3 Hallucinations, unspecified (principal); R41.82 Altered mental status, unspecified; I69.351 Hemiplegia and hemiparesis following cerebral infarction affecting right dominant side; I10 Essential (primary) hypertension; E78.5 Hyperlipidemia, unspecified; I25.10 Atherosclerotic heart disease of native coronary artery without angina pectoris; I48.0 Paroxysmal atrial fibrillation; M48.54XA Collapsed vertebra, not elsewhere classified, thoracic region, initial encounter for fracture; R41.0 Disorientation, unspecified; E03.9 Hypothyroidism, unspecified; M54.9 Dorsalgia, unspecified; F32.9 Major depressive disorder, single episode, unspecified; K21.9 Gastro-esophageal reflux disease without esophagitis; G47.30 Sleep apnea, unspecified; I35.0 Nonrheumatic aortic (valve) stenosis; R73.01 Impaired fasting glucose; T42.8X5A Adverse effect of antiparkinsonism drugs and other central muscle-tone depressants, initial encounter; Z79.82 Long term (current) use of aspirin; Z88.2 Allergy status to sulfonamides; Z85.46 Personal history of malignant neoplasm of prostate; Z86.718 Personal history of other venous thrombosis and embolism; Z95.1 Presence of aortocoronary bypass graft; Z95.2 Presence of prosthetic heart valve; Z90.79 Acquired absence of other genital organ(s)
CPT/HCPCS: 85025; 80048; 36415; 70450; 99285; G0378 ×2

== ENCOUNTER 2019-09-09 12:26 | Emergency (ER) | payer OTHER, BC ==
--- NOTE | 2019-09-09 12:52 | ER ---
Nurse's Notes [facility] Name: Erick Rodriguez Age: 69 yrs Sex: Male : 1950 Arrival Date: 09/09/2019 Time: 12:22 Bed 13 Private MD: Diagnosis: Esophageal Foreign Body - Resolved Presentation: 09/09 12:22 Presenting complaint: EMS states: Pt was eating lunch, got some food stuck in his jl7 throat, on the way over he started coughing and thinks he cleared it. Pt reports cleared food bolus at this time. Transition of care: [facility]. Onset of symptoms was September 09, 2019. Risk Assessment: Do you want to hurt yourself or someone else? Patient reports no desire to harm self or others. Initial Sepsis Screen: Does the patient meet any 2 criteria? No. Patient's initial sepsis screen is negative. Does the patient have a suspected source of infection? No. Patient's initial sepsis screen is negative. Care prior to arrival: None. 12:22 Method Of Arrival: EMS: [facility] 7 12:22 Acuity: CRISS 4 jl7 Triage Assessment: 12:22 General: Appears in no apparent distress. uncomfortable, Behavior is calm, cooperative, jl7 appropriate for age. Pain: Denies pain. Neuro: Level of Consciousness is awake, alert, obeys commands, Oriented to person, place, time, situation. Cardiovascular: Patient's skin is warm and dry. Respiratory: Airway is patent Respiratory effort is even, unlabored, Respiratory pattern is regular, symmetrical. Derm: Skin is pink, warm \T\ dry. Historical: - Allergies: 12:22 Sulfa (Sulfonamide Antibiotics); jl7 12:22 Hydrocodone-Acetaminophen; jl7 - Home Meds: 12:22 Baclofen Oral [Active]; meclizine 12.5 mg Oral tab 1 tabs 2 times per day [Active]; jl7 aripiprazole 5 mg oral tab [Active]; ramipril 10 mg Oral cap 1 cap 2 times per day [Active]; simvastatin 20 mg Oral tab [Active]; amlodipine 5 mg tab 1 tab BID [Active]; escitalopram oxalate 20 mg oral tab [Active]; aspirin 81 mg Oral TbEC 1 tab once daily [Active]; loratadine 10 mg oral tab [Active]; - PMHx: 12:22 Aortic valve replacement (cow); CVA; Hyperlipidemia; Hypertension; jl7 - Immunization history:: Adult Immunizations up to date. - Coronavirus screen:: The patient has NOT traveled to [place], [place], or [place] in the past 14 days. Proceed with normal triage process as indicated. - Social history:: Smoking status: Patient denies any tobacco usage or history of. - Ebola Screening: : No symptoms or risks identified at this time. Screenin:22 Abuse screen: Denies threats or abuse. Denies injuries from another. Nutritional jl7 screening: No deficits noted. Tuberculosis screening: No symptoms or risk factors identified. Fall Risk Secondary diagnosis (15 points) CVA, Total Silverman Fall Scale indicates No Risk (0-24 pts). Assessment: 12:22 General: See triage assessment. jl7 13:00 Reassessment: Jessica from [facility] on her way to transport pt. jl7 Vital Signs: 12:22 BP 129 / 79; Pulse 81; Resp 19 S; Temp 98.7(TE); Pulse Ox 96% on R/A; Weight 81.65 kg jl7 (R); Height 5 ft. 8 in. (172.72 cm) (R); Pain 0/10; 12:22 Body Mass Index 27.37 (81.65 kg, 172.72 cm) jl7 ED Course: 12:22 Patient arrived in ED. jl7 12:22 Arm band placed on right wrist. jl7 12:22 Patient has correct armband on for positive identification. Bed in low position. Call jl7 light in reach. Side rails up X2. Pulse ox on. NIBP on. 12:24 Triage completed. jl7 12:35 Madhu Porter MD is Attending Physician. kdr 12:51 Bakari Johnson RN is Primary Nurse. jl7 13:17 No provider procedures requiring assistance completed. Patient did not have IV access jl7 during this emergency room visit. Administered Medications: No medications were administered Outcome: 12:51 Discharge ordered by . kdr 13:17 Discharged to home via wheelchair. jl7 13:17 Condition: stable 13:17 Discharge instructions given to patient, family, Instructed on discharge instructions, follow up and referral plans. Demonstrated understanding of instructions, follow-up care. 13:23 Patient left the ED. jl7 Signatures: Madhu Porter MD MD kdr Bakari Johnson, RN RN jl7
--- NOTE | 2019-09-09 12:52 | EDPHYS ---
Physician Documentation [facility] Name: Erick Rodriguez Age: 69 yrs Sex: Male : 1950 Arrival Date: 09/09/2019 Time: 12:22 Bed 13 Private MD: ED Physician Madhu Porter HPI: 09/09 15:44 This 69 yrs old Male presents to ER via EMS with complaints of Food Bolus. kdr 15:44 The patient presents with The patient was eating ham when a piece became stuck. kdr Afterwards, a short time later, he vomited up the ham and is now passing fluids without problem.. Onset: The symptoms/episode began/occurred suddenly, just prior to arrival. The symptoms do not radiate. Associated signs and symptoms: none. The symptoms are described as crampy, dull, vague. Modifying factors: The symptoms are alleviated by Vomiting. Severity of pain: At its worst the pain was mild in the emergency department the pain has resolved. The patient has not experienced similar symptoms in the past. The patient has not recently seen a physician. Historical: - Allergies: 12:22 Sulfa (Sulfonamide Antibiotics); jl7 12:22 Hydrocodone-Acetaminophen; jl7 - Home Meds: 12:22 Baclofen Oral [Active]; meclizine 12.5 mg Oral tab 1 tabs 2 times per day [Active]; jl7 aripiprazole 5 mg oral tab [Active]; ramipril 10 mg Oral cap 1 cap 2 times per day [Active]; simvastatin 20 mg Oral tab [Active]; amlodipine 5 mg tab 1 tab BID [Active]; escitalopram oxalate 20 mg oral tab [Active]; aspirin 81 mg Oral TbEC 1 tab once daily [Active]; loratadine 10 mg oral tab [Active]; - PMHx: 12:22 Aortic valve replacement (cow); CVA; Hyperlipidemia; Hypertension; jl7 - Immunization history:: Adult Immunizations up to date. - Coronavirus screen:: The patient has NOT traveled to [place], [place], or [place] in the past 14 days. Proceed with normal triage process as indicated. - Social history:: Smoking status: Patient denies any tobacco usage or history of. - Ebola Screening: : No symptoms or risks identified at this time. ROS: 15:44 Constitutional: Negative for fever, chills, and weight loss, Eyes: Negative for injury, kdr pain, redness, and discharge, Neck: Negative for injury, pain, and swelling, Cardiovascular: Negative for chest pain, palpitations, and edema, Respiratory: Negative for shortness of breath, cough, wheezing, and pleuritic chest pain, Back: Negative for injury and pain, : Negative for injury, bleeding, discharge, and swelling, MS/Extremity: Negative for injury and deformity, Skin: Negative for injury, rash, and discoloration, Neuro: Negative for headache, weakness, numbness, tingling, and seizure activity. Psych: Negative for depression, anxiety, suicide ideation, homicidal ideation, and hallucinations, Allergy/Immunology: Negative for hives, rash, and allergies, Endocrine: Negative for neck swelling, polydipsia, polyuria, polyphagia, and marked weight changes, Hematologic/Lymphatic: Negative for swollen nodes, abnormal bleeding, and unusual bruising. 15:44 Abdomen/GI: Positive for Esophageal FB. Exam: 15:44 Constitutional: This is a well developed, well nourished patient who is awake, alert, kdr and in no acute distress. Head/Face: Normocephalic, atraumatic. Eyes: Pupils equal round and reactive to light, extra-ocular motions intact. Lids and lashes normal. Conjunctiva and sclera are non-icteric and not injected. Cornea within normal limits. Periorbital areas with no swelling, redness, or edema. Neck: Trachea midline, no thyromegaly or masses palpated, and no cervical lymphadenopathy. Supple, full range of motion without nuchal rigidity, or vertebral point tenderness. No Meningismus. Chest/axilla: Normal chest wall appearance and motion. Nontender with no deformity. No lesions are appreciated. Cardiovascular: Regular rate and rhythm with a normal S1 and S2. No gallops, murmurs, or rubs. Normal PMI, no JVD. No pulse deficits. Respiratory: Lungs have equal breath sounds bilaterally, clear to auscultation and percussion. No rales, rhonchi or wheezes noted. No increased work of breathing, no retractions or nasal flaring. Abdomen/GI: Soft, non-tender, with normal bowel sounds. No distension or tympany. No guarding or rebound. No evidence of tenderness throughout. Back: No spinal tenderness. No costovertebral tenderness. Full range of motion. Skin: Warm, dry with normal turgor. Normal color with no rashes, no lesions, and no evidence of cellulitis. Neuro: Prior CVA Psych: Awake, alert, with orientation to person, place and time. Behavior, mood, and affect are within normal limits. Vital Signs: 12:22 BP 129 / 79; Pulse 81; Resp 19 S; Temp 98.7(TE); Pulse Ox 96% on R/A; Weight 81.65 kg jl7 (R); Height 5 ft. 8 in. (172.72 cm) (R); Pain 0/10; 12:22 Body Mass Index 27.37 (81.65 kg, 172.72 cm) jl7 MDM: 12:51 Patient medically screened. kdr 15:55 Data reviewed: vital signs, nurses notes. Counseling: I had a detailed discussion with kdr the patient and/or guardian regarding: the historical points, exam findings, and any diagnostic results supporting the discharge/admit diagnosis, the need for outpatient follow up. Administered Medications: No medications were administered Disposition: 09/09/19 12:51 Discharged to Home. Impression: Esophageal Foreign Body - Resolved. - Condition is Stable. - Discharge Instructions: Swallowed Foreign Body, Adult, [id number]. - Medication Reconciliation Form, Thank You Letter form. - Follow up: Private Physician; When: 2 - 3 days; Reason: If symptoms return, Further diagnostic work-up, Recheck today's complaints, Continuance of care, Re-evaluation by your physician. - Problem is new. - Symptoms are resolved. Signatures: Madhu Porter MD MD kdr Bakari Johnson RN RN jl7 Corrections: (The following items were deleted from the chart) 12:57 12:51 09/09/2019 12:51 Discharged to Home. Impression: Esophageal Foreign Body. kdr Condition is Stable. Forms are Medication Reconciliation Form, Thank You Letter, Antibiotic Education, Prescription Opioid Use. Follow up: Private Physician; When: 2 - 3 days; Reason: If symptoms return, Further diagnostic work-up, Recheck today's complaints, Continuance of care, Re-evaluation by your physician. Problem is new. Symptoms are resolved. kdr 13:23 12:57 09/09/2019 12:51 Discharged to Home. Impression: Esophageal Foreign Body - jl7 Resolved. Condition is Stable. Discharge Instructions: Swallowed Foreign Body, Adult, [id number]. Forms are Medication Reconciliation Form, Thank You Letter. Follow up: Private Physician; When: 2 - 3 days; Reason: If symptoms return, Further diagnostic work-up, Recheck today's complaints, Continuance of care, Re-evaluation by your physician. Problem is new. Symptoms are resolved. kdr 15:55 15:44 Constitutional: This is a well developed, well nourished patient who is awake, kdr alert, and in no acute distress. Head/Face: Normocephalic, atraumatic. Eyes: Pupils equal round and reactive to light, extra-ocular motions intact. Lids and lashes normal. Conjunctiva and sclera are non-icteric and not injected. Cornea within normal limits. Periorbital areas with no swelling, redness, or edema. Neck: Trachea midline, no thyromegaly or masses palpated, and no cervical lymphadenopathy. Supple, full range of motion without nuchal rigidity, or vertebral point tenderness. No Meningismus. Chest/axilla: Normal chest wall appearance and motion. Nontender with no deformity. No lesions are appreciated. Cardiovascular: Regular rate and rhythm with a normal S1 and S2. No gallops, murmurs, or rubs. Normal PMI, no JVD. No pulse deficits. Respiratory: Lungs have equal breath sounds bilaterally, clear to auscultation and percussion. No rales, rhonchi or wheezes noted. No increased work of breathing, no retractions or nasal flaring. Abdomen/GI: Soft, non-tender, with normal bowel sounds. No distension or tympany. No guarding or rebound. No evidence of tenderness throughout. Back: No spinal tenderness. No costovertebral tenderness. Full range of motion. Skin: Warm, dry with normal turgor. Normal color with no rashes, no lesions, and no evidence of cellulitis. MS/ Extremity: Pulses equal, no cyanosis. Neurovascular intact. Full, normal range of motion. Neuro: Awake and alert, GCS 15, oriented to person, place, time, and situation. Cranial nerves II-XII grossly intact. Motor strength 5/5 in all extremities. Sensory grossly intact. Cerebellar exam normal. Normal gait. Psych: Awake, alert, with orientation to person, place and time. Behavior, mood, and affect are within normal limits. kdr
== END 2019-09-09 13:23 | disposition home or self-care (01) ==
LOC: ER 12:26
DX: T18.128A Food in esophagus causing other injury, initial encounter (principal); I10 Essential (primary) hypertension; E78.5 Hyperlipidemia, unspecified; Z79.82 Long term (current) use of aspirin; Z88.2 Allergy status to sulfonamides; Z88.5 Allergy status to narcotic agent; Z95.2 Presence of prosthetic heart valve
CPT/HCPCS: 99283

== ENCOUNTER 2019-10-14 09:44 | Emergency (ER) | payer OTHER, BC ==
[2019-10-14 12:11] LABS: Absolute Lymphocytes (CBC) 0.9 K/uL (0.7-4.9); Basophils % 0.5 % (0-1.3); Hematocrit 42.5 % (39.6-49.0); Lymphocytes % 11.8 % (15.3-44.8); MPV 7.8 fL (7.6-11.3); RBC Red Blood Cell Count 4.84 M/uL (4.33-5.43)
[2019-10-14 12:17] LABS: Protime INR 1.15
[2019-10-14 12:31] LABS: ALT/SGPT 21 U/L (12-78); AST/SGOT 13 U/L (15-37); Albumin 3.8 g/dL (3.4-5.0); Alkaline Phosphatase 74 U/L (45-117); BUN Blood Urea Nitrogen 16 mg/dL (7-18); Bicarbonate 30 mmol/L (21-32); Bilirubin Direct 0.3 mg/dL (0-0.2); Bilirubin Total 0.9 mg/dL (0.2-1.0); Glucose Level 85 mg/dL (74-106); Magnesium 2.2 mg/dL (1.8-2.4); NT PRO-BNP 65 pg/mL (<125); Potassium 3.9 mmol/L (3.5-5.1); Protein, Total 7.3 g/dL (6.4-8.2); Sodium Level 140 mmol/L (136-145); Troponin (Emerg Dept Use Only) < 0.02 ng/mL (0.0-0.045)
--- NOTE | 2019-10-14 13:01 | RAD REPORT ---
EXAM DESCRIPTION: Alvaro Lu (2 Views)10/14/2019 12:50 pm CLINICAL HISTORY: Cough COMPARISON: 2019 FINDINGS: The lungs appear clear of acute infiltrate. The heart is mildly enlarged. Postsurgical changes involve the chest. IMPRESSION: No acute abnormalities displayed
--- NOTE | 2019-10-14 13:18 | EDPHYS ---
Physician Documentation [facility] Name: Erick Rodriguez Age: 69 yrs Sex: Male : 1950 Arrival Date: 10/14/2019 Time: 09:46 Bed 14 Private MD: Sharad Stewart C ED Physician Teodoro Pittman HPI: 10/13 10:15 This 69 yrs old Male presents to ER via Wheelchair with complaints of Flu pm1 Symptoms. 10:15 The patient or guardian reports cough, flu symptoms. Onset: The symptoms/episode pm1 began/occurred yesterday. Modifying factors: The symptoms are alleviated by nothing, the symptoms are aggravated by nothing. Associated signs and symptoms: Pertinent positives: fever, sore throat, Pertinent negatives: chest pain, diarrhea, ear ache, nausea, vomiting, SOB. Sent by PCP to the ER for influenza and strep throat swabs. Historical: - Allergies: 09:59 Hydrocodone-Acetaminophen; ss 09:59 Sulfa (Sulfonamide Antibiotics); ss - PMHx: 09:59 Aortic valve replacement (cow); Hyperlipidemia; CVA; Hypertension; ss - Immunization history:: Adult Immunizations up to date. - Social history:: Smoking status: Patient denies any tobacco usage or history of. ROS: 10:15 Eyes: Negative for injury, pain, redness, and discharge, ENT: Negative for injury, pm1 pain, and discharge, Neck: Negative for injury, pain, and swelling, Cardiovascular: Negative for chest pain, palpitations, and edema. 10:15 Abdomen/GI: Negative for abdominal pain, nausea, vomiting, diarrhea, and constipation, Back: Negative for injury and pain, MS/Extremity: Negative for injury and deformity, Skin: Negative for injury, rash, and discoloration, Neuro: Negative for headache, weakness, numbness, tingling, and seizure. 10:15 Constitutional: Positive for fever, Negative for poor PO intake. 10:15 Respiratory: Positive for cough, Negative for shortness of breath, wheezing. Exam: 10:15 Constitutional: This is a well developed, well nourished patient who is awake, alert, pm1 and in no acute distress. Head/Face: Normocephalic, atraumatic. ENT: Nares patent. No nasal discharge, no septal abnormalities noted. Tympanic membranes are normal and external auditory canals are clear. Oropharynx with no redness, swelling, or masses, exudates, or evidence of obstruction, uvula midline. Mucous membranes moist. Neck: Trachea midline, no thyromegaly or masses palpated, and no cervical lymphadenopathy. Supple, full range of motion without nuchal rigidity, or vertebral point tenderness. No Meningismus. Chest/axilla: Normal chest wall appearance and motion. Nontender with no deformity. No lesions are appreciated. Cardiovascular: Regular rate and rhythm with a normal S1 and S2. No gallops, murmurs, or rubs. Normal PMI, no JVD. No pulse deficits. 10:15 Abdomen/GI: Soft, non-tender, with normal bowel sounds. No distension or tympany. No guarding or rebound. No evidence of tenderness throughout. Back: No spinal tenderness. No costovertebral tenderness. Full range of motion. Skin: Warm, dry with normal turgor. Normal color with no rashes, no lesions, and no evidence of cellulitis. MS/ Extremity: Pulses equal, no cyanosis. Neurovascular intact. Full, normal range of motion. 10:15 Respiratory: the patient does not display signs of respiratory distress, Respirations: normal, Breath sounds: are clear throughout. 10:15 Neuro: Orientation: is normal, Mentation: is normal, Motor: moves all fours, baseline weakness per patient to right arm. Vital Signs: 09:55 BP 163 / 84; Pulse 75; Resp 22; Temp 98.3(TE); Pulse Ox 96% on R/A; Weight 81.65 kg; ss Height 5 ft. 8 in. (172.72 cm); Pain 0/10; 11:00 BP 109 / 66; Pulse 64; Resp 18; Pulse Ox 95% on R/A; ph 12:39 BP 121 / 71; Pulse 72; Resp 18; Pulse Ox 96% on R/A; ph 13:45 BP 135 / 72; Pulse 68; Resp 18; Temp 98.0; Pulse Ox 97% on R/A; ph 09:55 Body Mass Index 27.37 (81.65 kg, 172.72 cm) ss MDM: 10:09 Patient medically screened. pm1 11:27 Data reviewed: vital signs. Data interpreted: Pulse oximetry: on room air is 96 %. pm1 Interpretation: normal. 13:16 Counseling: I had a detailed discussion with the patient and/or guardian regarding: the pm1 historical points, exam findings, and any diagnostic results supporting the discharge/admit diagnosis, lab results, radiology results, the need for outpatient follow up, to return to the emergency department if symptoms worsen or persist or if there are any questions or concerns that arise at home. 13:26 ED course: Patient and family (daughter and son) would like medication for his cough. pm1 Offered guaifenesin with codeine. Patient's allergy to hydrocodone is hallucination of relative that is not present. Family wanted decreased frequency so wrote the prescription for Q8 hr PRN. 10/13 10:03 Order name: Flu pm1 10/13 10:03 Order name: Strep pm1 10/13 10:03 Order name: Influenza Screen (A ; Complete Time: 10:56 EDMS 10/13 10:04 Order name: Group A Streptococcus Rapid Sc; Complete Time: 10:56 EDMS 10/13 10:44 Order name: Throat Culture EDMS 10/13 11:37 Order name: Basic Metabolic Panel; Complete Time: 12:42 pm1 10/13 11:37 Order name: CBC with Diff pm1 10/13 11:37 Order name: LFT's; Complete Time: 12:42 pm1 10/13 11:37 Order name: Magnesium; Complete Time: 12:42 pm1 10/13 11:37 Order name: NT PRO-BNP; Complete Time: 12:42 pm1 10/13 11:37 Order name: PT-INR; Complete Time: 12:23 pm1 10/13 11:37 Order name: Troponin (emerg Dept Use Only); Complete Time: 12:42 pm1 10/13 11:37 Order name: EKG; Complete Time: 11:38 pm1 10/13 11:37 Order name: Chest Pa And Lat (2 Views) XRAY; Complete Time: 13:15 pm1 10/13 11:37 Order name: Cardiac monitoring; Complete Time: 12:33 pm1 10/13 11:37 Order name: EKG - Nurse/Tech; Complete Time: 12:34 pm1 10/13 11:37 Order name: IV Saline Lock; Complete Time: 12:05 pm1 10/13 11:37 Order name: Labs collected and sent; Complete Time: 12:06 pm1 10/13 11:37 Order name: O2 Per Protocol; Complete Time: 12:34 pm1 10/13 11:37 Order name: O2 Sat Monitoring; Complete Time: 12:34 pm1 Administered Medications: No medications were administered Disposition: 10/14 07:01 Co-signature as Attending Physician, Teodoro Pittman MD. rn Disposition: 10/14/19 13:17 Discharged to Home. Impression: Acute upper respiratory infection, unspecified. - Condition is Stable. - Discharge Instructions: Antibiotic Resistance, Upper Respiratory Infection, Adult. - Prescriptions for Guaifenesin AC 10- 100 mg/5 mL Oral Liquid - take 10 milliliters by ORAL route every 8 hours As needed; 240 milliliter. - Medication Reconciliation Form, Thank You Letter, Antibiotic Education, Prescription Opioid Use form. - Follow up: Emergency Department; When: As needed; Reason: Worsening of condition. Follow up: Private Physician; When: 2 - 3 days; Reason: Recheck today's complaints, Continuance of care, Re-evaluation by your physician. - Problem is new. - Symptoms have improved. Signatures: Dispatcher [employer] EDMS Teodoro Pittman MD MD rn Smirch, Shelby, RN RN ss Gerald Bojorquez, [employer] pm1 Lurdes King RN RN hb Corrections: (The following items were deleted from the chart) 10/13 13:50 13:17 10/14/2019 13:17 Discharged to Home. Impression: Acute upper respiratory hb infection, unspecified. Condition is Stable. Forms are Medication Reconciliation Form, Thank You Letter, Antibiotic Education, Prescription Opioid Use. Follow up: Emergency Department; When: As needed; Reason: Worsening of condition. Follow up: Private Physician; When: 2 - 3 days; Reason: Recheck today's complaints, Continuance of care, Re-evaluation by your physician. Problem is new. Symptoms have improved. pm1
--- NOTE | 2019-10-14 13:18 | ER ---
Nurse's Notes [facility] Name: Erick Rodriguez Age: 69 yrs Sex: Male : 1950 Arrival Date: 10/14/2019 Time: 09:46 Bed 14 Private MD: Sharad Stewart C Diagnosis: Acute upper respiratory infection, unspecified Presentation: 10/13 09:56 Chief complaint: Patient states: Not feeling well since yesterday. Tylenol 650 mg given ss prior to arrival as patient had a temperature of 100.7. Dr. Stewart sent patient over for a flu and strep swab. Coronavirus screen: The patient has NOT traveled to a country currently being monitored by the [facility] within the last 14 days. Proceed with normal triage procedures. Ebola Screen: Patient denies exposure to infectious person. Patient denies travel to an Ebola-affected area in the 21 days before illness onset. Initial Sepsis Screen: Does the patient meet any 2 criteria? No. Patient's initial sepsis screen is negative. Does the patient have a suspected source of infection? No. Patient's initial sepsis screen is negative. Risk Assessment: Do you want to hurt yourself or someone else? Patient reports no desire to harm self or others. 09:56 Method Of Arrival: Wheelchair ss 09:56 Acuity: CRISS 3 ss Historical: - Allergies: 09:59 Hydrocodone-Acetaminophen; ss 09:59 Sulfa (Sulfonamide Antibiotics); ss - PMHx: 09:59 Aortic valve replacement (cow); Hyperlipidemia; CVA; Hypertension; ss - Immunization history:: Adult Immunizations up to date. - Social history:: Smoking status: Patient denies any tobacco usage or history of. Screenin:30 Abuse screen: Denies threats or abuse. Denies injuries from another. Nutritional ph screening: No deficits noted. Tuberculosis screening: No symptoms or risk factors identified. Fall Risk No fall in past 12 months (0 pts). Secondary diagnosis (15 points) CVA, No IV (0 pts). Ambulatory Aid- None/Bed Rest/Nurse Assist (0 pts). Gait- Impaired (20 pts.). Mental Status- Oriented to own ability (0 pts). Total Silverman Fall Scale indicates High Risk Score (45 or more points). Fall prevention measures have been instituted. Side Rails Up X 2 Placed Close to Nursing Station Family Present and informed to notify staff if the need to leave the bedside As available patient and family educated on Fall Prevention Program and Strategies. Assessment: 10:28 General: Appears in no apparent distress. comfortable, well groomed, Behavior is calm, ph cooperative, appropriate for age. Pain: Complains of pain in sore throat and headache. Neuro: Level of Consciousness is awake, alert, obeys commands, Oriented to person, place, time, situation. Cardiovascular: Capillary refill < 3 seconds in bilateral fingers Patient's skin is warm and dry. Respiratory: Airway is patent Respiratory effort is even, unlabored, Respiratory pattern is regular, symmetrical. EENT: Reports nasal congestion nasal discharge. Derm: Skin is intact, is healthy with good turgor, Skin is pink, warm \T\ dry. Musculoskeletal: Circulation, motion, and sensation intact. Range of motion: limited in R side, r/t past CVA. 12:00 Reassessment: Patient appears in no apparent distress at this time. Patient and/or ph family updated on plan of care and expected duration. Pain level reassessed. Patient is alert, oriented x 3, equal unlabored respirations, skin warm/dry/pink. Vital Signs: 09:55 BP 163 / 84; Pulse 75; Resp 22; Temp 98.3(TE); Pulse Ox 96% on R/A; Weight 81.65 kg; ss Height 5 ft. 8 in. (172.72 cm); Pain 0/10; 11:00 BP 109 / 66; Pulse 64; Resp 18; Pulse Ox 95% on R/A; ph 12:39 BP 121 / 71; Pulse 72; Resp 18; Pulse Ox 96% on R/A; ph 13:45 BP 135 / 72; Pulse 68; Resp 18; Temp 98.0; Pulse Ox 97% on R/A; ph 09:55 Body Mass Index 27.37 (81.65 kg, 172.72 cm) ED Course: 09:46 Patient arrived in ED. rg4 09:46 Sharad Stewart MD is Private Physician. rg4 09:49 Gerald Bojorquez NP is PHCP. pm1 09:49 Teodoro Pittman MD is Attending Physician. pm1 09:55 Arm band placed on right wrist. ss 09:57 Triage completed. ss 10:03 Ibarra, Kelsi, RN is Primary Nurse. ph 10:31 Patient has correct armband on for positive identification. Bed in low position. Call ph light in reach. Side rails up X 1. Pulse ox on. NIBP on. Door closed. Noise minimized. Warm blanket given. 10:32 Strep Sent. ph 10:32 Flu Sent. ph 12:01 Initial lab(s) drawn, by mi, sent to lab. Inserted saline lock: 20 gauge in left [facility] antecubital area, using aseptic technique. Blood collected. 12:18 EKG done, by ED staff, reviewed by Gerald Bojorquez NP. [facility] 12:53 Chest Pa And Lat (2 Views) XRAY In Process Unspecified. EDMS 13:50 No provider procedures requiring assistance completed. IV discontinued, intact, ph bleeding controlled, No redness/swelling at site. Pressure dressing applied. Administered Medications: No medications were administered Outcome: 13:17 Discharge ordered by . pm1 13:50 Patient left the ED. 13:50 Discharged to home via wheelchair, with family. 13:50 Condition: good 13:50 Discharge instructions given to patient, family, Instructed on discharge instructions, follow up and referral plans. medication usage, Demonstrated understanding of instructions, follow-up care, medications, Prescriptions given X 1. Signatures: Dispatcher [employer] EDIL Jessica Jorgensen RN RN ss Hall, Patricia, RN RN ph Marinas, Patrick, NP BRIM FLEXER pm1 Lurdes King RN RN hb Garcia, Rubi 4 Amalia Youngblood [facility]
[2019-10-14 14:07] VITALS: TEMP 98.3
[2019-10-14 14:10] VITALS: BP 121/71; O2SAT 96
--- NOTE | 2019-10-15 08:54 | EKG ---
Test Date: 2019-10-14 Test Time: 11:14:01 Miter Operator: BONY MEASUREMENT RESULTS: Intervals: Rate: 74 MO: 160 QRSD: 88 QT: 400 QTc: 444 [place]: P: 51 MO: 160 QRS: 17 T: 59 INTERPRETIVE STATEMENTS: Normal sinus rhythm Possible Anterior infarct, age undetermined Abnormal ECG Compared to ECG 11/16/2018 12:10:30 No significant changes Electronically Signed On 10-15-19 08:53:01 CDT by Bacilio Ibarra
== END 2019-10-14 13:50 | disposition home or self-care (01) ==
LOC: ER 09:44
DX: J06.9 Acute upper respiratory infection, unspecified (principal); Z88.6 Allergy status to analgesic agent; Z88.2 Allergy status to sulfonamides
CPT/HCPCS: 36415; 71046; 80048; 80076; 83735; 83880; 84484; 85025; 85610; 87070; 87081; 87804; 93005; 99284

== ENCOUNTER 2020-01-24 12:47 | Emergency (ER) | payer OTHER, BC ==
[2020-01-24] MEDS ORDERED: FENTANYL CITR 100 MCG/2 ML ONE (13:00)
[2020-01-24] MEDS ORDERED: RSI MEDICATION KIT IV ONE (13:00)
[2020-01-24] MEDS ORDERED: NA CHLORIDE 0.9% 1,000 ML ONE ×2 (13:00→17:09)
[2020-01-24] MEDS ORDERED: IPRATROPIUM BROM 0.5MG/2.5ML ONE (13:02)
[2020-01-24] MEDS ORDERED: ALBUTEROL 2.5 MG/3 ML NEB SOL ONE (13:03)
[2020-01-24] MEDS ORDERED: METHYLPREDNISOLONE 125 MG INJ ONE (13:06)
[2020-01-24] MEDS ORDERED: MIDAZOLAM HCL 2 MG/2 ML INJ ONE (13:06)
--- OUTSIDE RECORDS SUMMARY | 2020-01-24 13:07 | XMS REPORT | Summary of Care ---
:1950 Author Organization [facility] Address [address] [place] [id number] Encounter HQ Encntr_alias(FIN) [id number] Date(s): 10/14/19 - 11/12/[address] [place] [phone] Discharge Disposition: Home or Self Care Attending Physician: Telma Hurt MD Vital Signs No data available for this section Problem List No data available for this section Allergies, Adverse Reactions, Alerts Substance Reaction Severity Status sulfa drugs Active Medications No data available for this section Results No data available for this section Immunizations No data available for this section Procedures No data available for this section Social History Social History Type Response Assessment and Plan No data available for this section
--- OUTSIDE RECORDS SUMMARY | 2020-01-24 13:07 | XMS REPORT | Continuity of Care Document ---
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 Dysphagia 11/01/2018 [facility] following cerebral infarction Dysphagia, 11/01/2018 [facility] unspecified Dysphagia, 09/09/2018 [facility] oropharyngeal phase Medications No Data Provided for This Section Allergies, Adverse Reactions, Alerts Substance Category Reaction Severity Reaction Status Date Comments S ource type Reported sulfa drugs Assertion Drug Active [facility] allergy Immunizations No Data Provided for This Section Results No Data Provided for This Section Pathology Reports No Data Provided for This Section Diagnostic Reports Report Value Date Source Esophagus BA swallow w Study: Esophagus BA swallow w function Rehab DX 01/10/2018 1:17 PM CDT 01/10/2018 [facility] function Rehab DX Clinical Indication: aspiration, dysphagia - d ysphagia; Comparison: None TECHNIQUE: Modified barium s wallow is performed in conjunction with speech pathology. Patient orally ingests barium of various consistency. Fluoroscopic time is 2 minutes 30 seconds. FINDINGS: Thin barium by cup : Residual in the vallecula and piriform sinuses without laryngeal penetration or aspiration Kerman consistency by cup: S pillage and residual in the vallecula and piriform sinuses without laryngeal penetration or aspiration Puree by spoon: Residual in the vallecula and piriform sinuses without laryngeal penetration or aspiration Solid cracker: Spillage and residual in the vallecula and piriform sinuses without laryngeal penetration or aspiration Thin barium by cup: Residual in the vallecula and piriform sinuses without laryngeal penetration or aspiration Barium pill: Negative Full report and recommendations to follow from s [facility] pathology. SL: [id number] Consultation Notes No Data Provided for This Section Discharge Summaries No Data Provided for This Section History and Physicals No Data Provided for This Section Vital Signs Vital Sign Value Date Comments Source Heart Rate 75 10/09/2019 [facility] Systolic (mm Hg) 145 10/09/2019 [facility] Diastolic (mm Hg) 90 10/09/2019 [facility] Heart Rate 62 10/09/2019 [facility] Systolic (mm Hg) 157 10/09/2019 [facility] Diastolic (mm Hg) 90 10/09/2019 [facility] Heart Rate 61 10/07/2019 [facility] Systolic (mm Hg) 159 10/07/2019 [facility] Diastolic (mm Hg) 88 10/07/2019 [facility] Systolic (mm Hg) 126 03/16/2018 [facility] Diastolic (mm Hg) 76 03/16/2018 [facility] Heart Rate 60 03/16/2018 [facility] Heart Rate 61 03/09/2018 [facility] Systolic (mm Hg) 142 03/09/2018 [facility] Diastolic (mm Hg) 83 03/09/2018 [facility] Systolic (mm Hg) 123 03/02/2018 [facility] Diastolic (mm Hg) 71 03/02/2018 [facility] Heart Rate 63 03/02/2018 [facility] Heart Rate 66 02/19/2018 [facility] Systolic (mm Hg) 142 02/19/2018 [facility] Diastolic (mm Hg) 79 02/19/2018 [facility] Systolic (mm Hg) 149 02/13/2018 [facility] Diastolic (mm Hg) 78 02/13/2018 [facility] Heart Rate 65 02/06/2018 [facility] Systolic (mm Hg) 130 02/06/2018 [facility] Diastolic (mm Hg) 77 02/06/2018 [facility] Systolic (mm Hg) 144 02/05/2018 [facility] Diastolic (mm Hg) 79 02/05/2018 [facility] Heart Rate 65 02/01/2018 [facility] Heart Rate 61 01/25/2018 [facility] Systolic (mm Hg) 165 01/11/2018 [facility] Diastolic (mm Hg) 90 01/11/2018 [facility] Heart Rate 58 01/11/2018 [facility] Heart Rate 65 01/04/2018 [facility] Systolic (mm Hg) 157 01/04/2018 [facility] Diastolic (mm Hg) 89 01/04/2018 [facility] Heart Rate 66 01/03/2018 [facility] Systolic (mm Hg) 152 01/03/2018 [facility] Diastolic (mm Hg) 83 01/03/2018 [facility] Height 172.72 cm 12/16/2017 [facility] Heart Rate 84 12/12/2017 [facility] Systolic (mm Hg) 155 12/12/2017 [facility] Diastolic (mm Hg) 91 12/12/2017 [facility] Systolic (mm Hg) 133 11/28/2017 [facility] Diastolic (mm Hg) 81 11/28/2017 [facility] Heart Rate 84 11/28/2017 [facility] Height 172.72 cm 11/22/2017 [facility] Systolic (mm Hg) 101 11/22/2017 [facility] Diastolic (mm Hg) 65 11/22/2017 [facility] Heart Rate 56 11/22/2017 [facility] Encounters Location Location Encounter Encounter Reason Attending ADM [place] Stat us Source Details Type Number For Provider Date Date Visit [facility] Challenge [id number] Samina 11/20 12/20 [facility] [place] [facility] [facility] Challenge [id number] Telma Hurt 12/20 01/19 [facility] /2017 [place] [facility] Challenge [id number] Telma Hurt 01/22 02/21 [facility] /2017 [place] [facility] Recurring [id number] Telma Hurt 02/12 03/14 [facility] /2017 [place] [facility] Tots [id number] Telma Hurt 03/16 04/15 [facility] /2017 [place] [facility] Tots [id number] Telma Hurt 09/10 10/09 [facility] /2019 [place] [facility] Tots [id number] Telma Hurt 10/13 11/12 [facility] /2019 [place] Procedures No Data Provided for This Section Assessment and Plan No Data Provided for This Section Plan of Care No Data Provided for This Section Social History Social History Date Source Social History TypeResponse 11/13/2019 [facility] Family History No Data Provided for This Section Advance Directives No Data Provided for This Section Functional Status No Data Provided for This Section
--- OUTSIDE RECORDS SUMMARY | 2020-01-24 13:07 | XMS REPORT | Clinical Summary ---
:1950 Author Organization [facility] Address [address] [place] [address] Care Team Providers Name Role Phone Maikel Stewart MD Primary Care Provider Allergies Active Allergy Reactions Severity Noted Date Comments Sulfa (Sulfonamide Antibiotics) Rash Low 8 Medications Medication Sig Dispensed Refills Start End Date Status Date simvastatin (ZOCOR) 20 11 Active MG tablet 8 aspirin (ECOTRIN) 81 MG Take 81 mg 0 Active enteric coated tablet by mouth daily. escitalopram (LEXAPRO) Take 20 mg 0 Active 20 MG tablet by mouth daily. ramipril (ALTACE) 10 MG Take 10 mg 0 Active capsule by mouth 3 (three) times a day. amLODIPine (NORVASC) 5 2 Active mg tablet 8 hydroCHLOROthiazide 2 08/19/19 Discontinued (HYDRODIURIL) 12.5 MG 8 20 (Patient tablet Reported) baclofen (LIORESAL) 10 Take 1 90 tablet 0 0 MG tablet tablet (10 0 20 mg total) by mouth 3 (three) times a day for 30 days. Active Problems Problem Noted Date Late effect of stroke 12/13/2017 Right spastic hemiparesis 12/13/2017 BOUBACAR (obstructive sleep apnea) 12/13/2017 Right foot drop 12/13/2017 Spasticity 12/13/2017 Aphasia as late effect of cerebrovascular accident 07/2018 Neurogenic bladder 11/16/2017 CVA (cerebral vascular accident) 10/09/2017 Internal jugular vein thrombosis, right 08/31/2017 Encephalopathy, improving 08/30/2017 Anemia due to blood loss 08/30/2017 Acute ischemic thalamic stroke, left 08/19/2017 Overview: 2009 [place] WITH CAROTID ENDARTERECTOMY Mild protein-calorie malnutrition 08/19/2017 S/P AVR 08/17/2017 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 08/17/2017 without angina pectoris Post-op pain 08/17/2017 Acute postoperative pulmonary insufficiency, Ventilato r dependent, post 08/17/2017 tracheostomy Encounters Date Type Specialty Care Team Description 01/08/2020 Travel 08/19/2019 Clinical Support Physical Medicine and Telma Hurt MD Right spastic hemiparesis (HCC) (Primary Dx); Rehabilitation BOUBACAR (obstruct desiree sleep apnea); Right foot drop ; Late effect of stroke 08/16/2019 Refill Physical Medicine and Carla Chavez, RN after 01/23/2019 Immunizations Name Administration Dates Next Due FLUCELVAX QUAD PF 09/07/2017, 08/24/2017 Pneumococcal Conjugate 13-Valent 09/07/2017 Family [...] Travel End No recent travel history available. COVID-19 Exposure Response Date Recorded In the last month, have you been in contact with No / Unsure 01/08/2020 1:40 PM CDT someone who was confirmed or suspected to have Coronavirus / COVID-19? Last Filed Vital Signs Vital Sign Reading Time Taken Comments Blood Pressure 155/97 08/19/2019 2:33 PM REGIONAL PROGRAM MANAGER Pulse 68 08/19/2019 2:33 PM REGIONAL PROGRAM MANAGER Temperature - - Respiratory Rate - - Oxygen Saturation - - Inhaled Oxygen Concentration - - Weight - - Height - - Body Mass Index - - Plan of Treatment Date Type Specialty Care Team Description 02/17/2020 Clinical Support Physical Medicine and Safia Hurt MD Rehabilitation [address] [address] [place], [place] [address] [phone] Health Maintenance Due Date Last Done Comments COLONOSCOPY SCREENING 1999 SHINGLES VACCINES (#1) 1999 65+ PNEUMOCOCCAL VACCINE (2 of 2 - PPSV23) 09/07/201809/07 INFLUENZA VACCINE 03/07/2020 09/07/2017, 08/24/2017 Implants Implanted Type Area Certified Home Health Aide Device Shelf Model / Identifier Expiration Serial / Date Lot Valve Aortic Hemo Peric Tiss W/[place] Keila h Cuff 23mm Trifecta - [id number] - [id number] Cardiovascular N/A: [facility] 02/12/2021 TFGT 23A / Implanted: Qty: 1 on 08/17/2017 by Bakari Elias MD at [facility] Implants Heart STRUCTURAL [id number] / HEART [id number]^ [id number] Clip Ligtng Weck Hemoclip Plus W/ Tape Ti Med - [id number] Me dical Clips for N/A: N/A TELEFLEX [id number] / Implanted: 08/17/2017 at [facility] (Quantity not on file) Int ernal Use MEDICAL / Clip Ligtng Weck Hemoclip Plus W/ Tape Ti Strngpnt - [id number] Medical Clips for N/A: N/A WECK CLOSURE [id number] / Implanted: 08/17/2017 at [facility] (Quantity not on file) Int ernal Use SYSTEMS / Clip Ligtng Weck Hemoclip Plus W/ Tape Ti Med - [id number] Me dical Clips for N/A: N/A TELEFLEX [id number] / Implanted: 08/24/2017 at [facility] (Quantity not on file) Int ernal Use MEDICAL / Patch Biosurg Selnt Fibrin Absrbl 9.5x4.8cm Tachosil - [id number] Surgical N/A: N/A JACK [id number] / Implanted: 08/17/2017 at [facility] (Quantity not on file) Imp lants; BIOSCIENCE / Expanders; Extenders; Surgical Wires Patch Biosurg Selnt Fibrin Absrbl 9.5x4.8cm Tachosil - [id number] Surgical N/A: N/A JACK [id number] / Implanted: 08/17/2017 at [facility] (Quantity not on file) Imp lants; BIOSCIENCE / Expanders; Extenders; Surgical Wires Patch Biosurg Selnt Fibrin Absrbl 9.5x4.8cm Tachosil - [id number] Surgical N/A: N/A JACK [id number] / Implanted: 08/17/2017 at [facility] (Quantity not on file) Imp lants; BIOSCIENCE / Expanders; Extenders; Surgical Wires [place] Perph Vasclr Ptfe 1.2x10cm 1.65mm - [id number] Vascular [place] t N/A: N/A BARD PERIPHERAL 02/01/2022 [id number] / Implanted: 08/17/2017 at [facility] (Quantity not on file) VASCULAR / [id number] [place] Perph Vasclr Ptfe 1.2x10cm 1.65mm - [id number] Vascular [place] t N/A: N/A BARD PERIPHERAL 06/03/2022 [id number] / Implanted: 08/17/2017 at [facility] (Quantity not on file) VASCULAR / [id number] Explanted Type Area Certified Home Health Aide Device Shelf Model / Identifier Expiration Serial / Date Lot Lead Pace Galileo Mycrdl Unipol Tmpry Streamline - [id number] Cardio vascular N/A: [employer] [place] - [id number] / Implanted: 08/17/2017 at [facility] (Quantity not on file) Imp lants N/A CARDIAC SRGRY / Lead Pace Galileo Mycrdl Unipol Tmpry Streamline - [id number] Cardio vascular N/A: [employer] [place] - [id number] / Implanted: 08/17/2017 at [facility] (Quantity not on file) Imp lants N/A CARDIAC SRGRY / Procedures Procedure Name Priority Date/Time Associated Comments Diagnosis NV NEEDLE EMG GUIDANCE Routine 08/19/2019 2:15 Right spastic Results for this FOR CHEMODENERVATION PM REGIONAL PROGRAM MANAGER hemiparesis (HCC) pr ocedure are in the results section. NV CHEMODENERVATION 1 Routine 08/19/2019 2:15 Right spastic R esults for this EXTREMITY 5 OR MORE PM REGIONAL PROGRAM MANAGER hemiparesis (HCC) pro cedure are in MUSCLES the results section. after 01/23/2019 Results Botulinum Injection (08/19/2019 2:15 PM REGIONAL PROGRAM MANAGER) Narrative Performed At Telma Hurt MD 08/19/2019 4:29 PM Botulinum Injection Date/Time: 08/19/2019 2:16 PM Performed by: Telma Hurt MD Authorized by: Telma Hurt MD Consent: Consent obtained: Written Consent given by: Patient Risks discussed: Bleeding, excessive weakness, mu scle atrophy, venous thrombosis and pain and discomfort Benefits discussed: Decreased muscle tightness, i ncreased joint range of motion and decreased pain [place] protocol: Procedure explained and questions ans wered to patient or proxy's satisfaction: yes Patient identity confirmed: Verball y with patient and provided demographic data Pre-procedure details: Limited electromyography confirmed needle location within the muscle: Yes In some muscles, electrical stimulation was used to localize muscle: No Procedure details: Agent Botulinum Toxin: Xeomin Total Units Injected: 500 Xeomin Medications Administered: 50 0 Units incobotulinumtoxinA 100 Units Upper Extremity Muscles: Biceps Brevis - Left Units: 50 Biceps Brevis - Right Units: Biceps Longus - Left Units: 50 Biceps Longus - Right Units: Brachialis - Left Units: 50 Brachialis - Right Units: Brachioradialis - Left Units: 50 Brachioradialis - Right Units: Flexor Digitorium Profundus - Left Unit s: 100 Flexor Digitorium Profundus - Right U nits: Flexor Digitorium Superficialis - Left Units: 100 Flexor Digitorium Superficialis - Rig ht Units: Pectoralis Major - Left Units: 100 Pectoralis Major - Right Units: EMG Guidance Used: emg guidance used Number of EMG Guidance Used:1 (Needle El ectromyography guidance used.) Post-procedure details: Patient tolerance of procedure: Chucho erated well, no immediate complications Comments: Needle Electromyography was performe d for both guidance and limited diagnostic purposes. Motor Unit Potent ial activity and recruitment patterns were confirmed for proper localization of inj ection site, and no gross abnormalities were noted. Presence of patholog ic waveforms such as fibrillations or sharp waves were screen ed for to detect signs of myopathic or neurogenic conditions witho ut gross abnormalities. Benefits discussed included, but were no t limited to decreased muscle tightness, increased joint range of cheryl on, and decreased pain. Risks discussed included but not limited to pa in and discomfort, bleeding excessive weakness, venous thrombosis, a nd muscle atrophy. Details of Procedure: Muscles to be treated were id entified using anatomical landmarks described by Oraliaet al; (1994) Skin was cleaned with alcohol. A hollow monopolar needle was introduced to the target muscles. Prior to injection, the needle plunger was aspirated t o make sure that the needle was not within a blood vessel. Th ere was no blood retrieved on aspiration. 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
[2020-01-24] MEDS ORDERED: MAGNESIUM SULFATE 1 gm IVPB 1 GM/100 ML BAG IV ONE (13:10)
[2020-01-24] MEDS ORDERED: GLUCAGON 1 MG/VIAL ONE (13:27)
[2020-01-24 13:46] LABS: Absolute Lymphocytes (CBC) 3.2 K/uL (0.7-4.9); Basophils % 0.8 % (0-1.3); Hematocrit 48.1 % (39.6-49.0); Lymphocytes % 34.1 % (15.3-44.8); MPV 9.1 fL (7.6-11.3); RBC Red Blood Cell Count 5.38 M/uL (4.33-5.43)
[2020-01-24 13:47] LABS: Protime INR 1.04
[2020-01-24] MEDS ORDERED: ONDANSETRON 4 MG/2 ML VIAL ONE ×2 (13:52→16:24)
--- NOTE | 2020-01-24 14:23 | RAD REPORT ---
EXAM DESCRIPTION: RAD - Chest Single View - 01/24/2020 2:14 pm CLINICAL HISTORY: Aspirated FB Chest pain. COMPARISON: Chest Pa And Lat (2 Views) dated 10/14/2019; Chest Single View dated 11/16/2018; Chest Sing le View dated 09/13/2018; Chest Single View dated 09/09/2018 FINDINGS: Portable technique limits examination quality. The lungs are grossly clear. The heart is mildly prominent with sternotomy wires present. A radiopaqu e foreign body is not identified.
[2020-01-24 14:26] LABS: ALT/SGPT 26 U/L (12-78); Albumin 4.5 g/dL (3.4-5.0); Alkaline Phosphatase 79 U/L (45-117); BUN Blood Urea Nitrogen 14 mg/dL (7-18); Bicarbonate 24 mmol/L (21-32); Bilirubin Direct 0.1 mg/dL (0-0.2); Bilirubin Total 0.7 mg/dL (0.2-1.0); Glucose Level 97 mg/dL (74-106); NT PRO-BNP 49 pg/mL (<125); Protein, Total 8.6 g/dL (6.4-8.2); Sodium Level 139 mmol/L (136-145); Troponin (Emerg Dept Use Only) < 0.02 ng/mL (0.0-0.045)
[2020-01-24 14:36] LABS: AST/SGOT 17 U/L (15-37); Magnesium 2.2 mg/dL (1.8-2.4)
[2020-01-24] MEDS ORDERED: SIMETHICONE 40 MG/ 0.6 ML ONE (15:18)
--- NOTE | 2020-01-24 16:34 | ER ---
Nurse's Notes [facility] Name: Erick Rodriguez Age: 69 yrs Sex: Male : 1950 Arrival Date: 01/24/2020 Time: 12:48 Bed 2 Private MD: Diagnosis: Esophageal obstruction Presentation: 01/23 12:52 Chief complaint: Patient states: Eating. Suddenly started choking. Unable to breath ll1 well, + N/V. Took about 10 minutes to get here. Significant SOB noted. Coronavirus screen: Proceed with normal triage. Patient denies a cough. Patient reports shortness of breath or difficulty breathing. Patient denies measured and/or subjective temperature greater than 100.4F prior to today's visit. Patient denies travel on a cruise ship or to a country the [facility] currently lists as an affected area. Patient denies contact with known and/or suspected case of COVID-19. Ebola Screen: Patient denies travel to an Ebola-affected area in the 21 days before illness onset. Risk Assessment: Do you want to hurt yourself or someone else? Patient reports no desire to harm self or others. 12:52 Acuity: CRISS 2 ll1 12:52 Method Of Arrival: Wheelchair ll1 13:00 Acuity: CRISS 1 ph 14:19 Initial Sepsis Screen: Does the patient meet any 2 criteria? No. Patient's initial ph sepsis screen is negative. Does the patient have a suspected source of infection? No. Patient's initial sepsis screen is negative. Onset of symptoms was January 24, 2020. Historical: - Allergies: 12:54 Hydrocodone-Acetaminophen; ll1 12:54 Sulfa (Sulfonamide Antibiotics); ll1 - Home Meds: 14:38 amlodipine 5 mg tab 1 tab BID [Active]; aripiprazole 5 mg Oral tab [Active]; aspirin 81 ph mg Oral TbEC 1 tab once daily [Active]; Baclofen Oral [Active]; escitalopram oxalate 20 mg Oral tab [Active]; loratadine 10 mg Oral tab [Active]; meclizine 12.5 mg Oral tab 1 tabs 2 times per day [Active]; ramipril 10 mg Oral cap 1 cap 2 times per day [Active]; simvastatin 20 mg Oral tab [Active]; - PMHx: 12:54 Hyperlipidemia; Aortic valve replacement (cow); Hypertension; CVA; esophageal problems; ll1 - Immunization history:: Adult Immunizations unknown. - Social history:: Smoking status: Patient denies any tobacco usage or history of. Screenin:11 Abuse screen: Denies threats or abuse. Denies injuries from another. ph 15:31 Nutritional screening: Difficulty chewing/swallowing? Yes. Tuberculosis screening: No ph symptoms or risk factors identified. Fall Risk No fall in past 12 months (0 pts). Secondary diagnosis (15 points) CVA, IV access (20 points). Ambulatory Aid- None/Bed Rest/Nurse Assist (0 pts). Gait- Impaired (20 pts.). Mental Status- Oriented to own ability (0 pts). Total Silverman Fall Scale indicates High Risk Score (45 or more points). Fall prevention measures have been instituted. Side Rails Up X 2 Placed Close to Nursing Station Frequent Obs/Assessments Occuring Family Present and informed to notify staff if the need to leave the bedside As available patient and family educated on Fall Prevention Program and Strategies. Assessment: 12:50 General: Appears distressed, uncomfortable, Behavior is cooperative, appropriate for ph age, anxious. Pain: Complains of pain in neck. Neuro: Level of Consciousness is awake, alert, obeys commands, Oriented to person, place, time, situation, [employer] are weak on right Gait is unsteady, hx of C VA w/ right sided deficits. Speech is slurred. Cardiovascular: Capillary refill < 3 seconds in bilateral fingers Patient's skin is warm and dry. Respiratory: Reports shortness of breath air hunger. GI: Pt is actively vomiting. Derm: Skin is intact, Skin is pink, warm \\T\\ dry. Musculoskeletal: Range of motion: limited in right side of body r/t previous CVA. 14:17 Reassessment: Patient appears in no apparent distress at this time. Patient and/or ph family updated on plan of care and expected duration. Pain level reassessed. Patient is alert, oriented x 3, equal unlabored respirations, skin warm/dry/pink. pt resting in bed, vomiting no longer noted, waiting to be taken to OR, son at bedside, VSS. 14:32 Reassessment: Pt's son states, " He just threw up twice and some pieces of brisket came ph up." Pt reports that he is feeling better. 14:36 Reassessment: Dr Mohan at bedside. ph 15:31 Reassessment: Patient appears in no apparent distress at this time. Patient and/or ph family updated on plan of care and expected duration. Pain level reassessed. Patient is alert, oriented x 3, equal unlabored respirations, skin warm/dry/pink. 16:40 Reassessment: Patient appears in no apparent distress at this time. Patient and/or ph family updated on plan of care and expected duration. Pain level reassessed. Patient is alert, oriented x 3, equal unlabored respirations, skin warm/dry/pink. Pt taken to OR, report given to OR nurse. Vital Signs: 12:59 BP 182 / 125; Pulse 118; Resp 30; Temp 98.2; Pulse Ox 95% on R/A; ph 13:29 BP 179 / 103; Pulse 109; Resp 24; Pulse Ox 94% on R/A; ph 14:18 BP 131 / 89; Pulse 103; Resp 18; Pulse Ox 93% on R/A; ph 15:32 BP 154 / 100; Pulse 109; Resp 18; Pulse Ox 92% on R/A; ph ED Course: 12:48 Patient arrived in ED. as 12:49 Missed attempt(s): 20 gauge in right antecubital area. Bleeding controlled, band aid hb applied, catheter tip intact. 12:53 Triage completed. ll1 12:54 Arm band placed on Patient placed in an exam room, on a stretcher. ll1 13:00 Initial lab(s) drawn, by me, sent to lab. Inserted saline lock: 22 gauge in right hand, ph using aseptic technique. Blood collected. 13:03 Madhu Porter MD is Attending Physician. kdr 13:06 Kelsi Ibarra, INDIRA is Primary Nurse. ph 14:14 CXR XRAY In Process Unspecified. EDMS 14:18 No provider procedures requiring assistance completed. ph 14:19 Patient has correct armband on for positive identification. Placed in gown. Bed in low ph position. Call light in reach. Side rails up X2. monitoring and evaluation advisor on. Pulse ox on. NIBP on. Warm blanket given. Pillow given. Cool cloth applied. Head of bed elevated. 16:20 EKG done, by ED staff, reviewed by Madhu Porter MD. dh3 16:32 Thanh Mohan MD is Hospitalizing Provider. kdr 16:45 Patient admitted, IV remains in place. ph Administered Medications: 13:02 Drug: Albuterol - atroVENT (3:1) (2.5 mg - 0.5 mg) 3 ml Route: Nebulizer; ph 13:30 Follow up: Response: No adverse reaction ph 13:05 Drug: SOLU-Medrol 125 mg Route: IVP; Site: right hand; ph 13:30 Follow up: Response: No adverse reaction ph 13:12 Drug: Magnesium Sulfate 1 grams Route: IVPB; Infused Over: 1 hrs; Site: right hand; ph 14:15 Follow up: Response: No adverse reaction; IV Status: Completed infusion ph 13:23 Drug: Glucagon 1 mg Route: IVP; Site: right hand; em 14:00 Follow up: Response: No adverse reaction ph 13:48 Drug: Zofran (Ondansetron) 4 mg Route: IVP; Site: right hand; em 15:00 Follow up: Response: No adverse reaction; Vomiting unchanged ph 16:15 Drug: Zofran (Ondansetron) 4 mg Route: IVP; Site: right hand; ph 16:30 Follow up: Response: No adverse reaction ph Outcome: 16:33 Decision to Hospitalize by Provider. kdr 17:00 Patient left the ED. ph 17:00 Admitted to OR accompanied by nurse, accompanied by tech, family with patient, via ph wheelchair, with chart. 17:00 Condition: stable 17:00 Instructed on the need for admit. Signatures: Dispatcher [employer] Madhu Guthrie MD MD [facility] Juno Mcdaniel RN RN em Martinez, Amelia as Hall, Patricia, RN RN Lurdes King RN RN Amalia Youngblood [facility] Felice Carrizales RN RN ll1
--- NOTE | 2020-01-24 16:34 | EDPHYS ---
Physician Documentation [facility] Name: Erick Rodriguez Age: 69 yrs Sex: Male : 1950 Arrival Date: 01/24/2020 Time: 12:48 Bed 2 Private MD: ED Physician Madhu Porter HPI: 01/23 16:25 This 69 yrs old Male presents to ER via Wheelchair with complaints of kdr possible swallowed/aspirated FB. Historical: - Allergies: 12:54 Hydrocodone-Acetaminophen; ll1 12:54 Sulfa (Sulfonamide Antibiotics); ll1 - Home Meds: 14:38 amlodipine 5 mg tab 1 tab BID [Active]; aripiprazole 5 mg Oral tab [Active]; aspirin 81 ph mg Oral TbEC 1 tab once daily [Active]; Baclofen Oral [Active]; escitalopram oxalate 20 mg Oral tab [Active]; loratadine 10 mg Oral tab [Active]; meclizine 12.5 mg Oral tab 1 tabs 2 times per day [Active]; ramipril 10 mg Oral cap 1 cap 2 times per day [Active]; simvastatin 20 mg Oral tab [Active]; - PMHx: 12:54 Hyperlipidemia; Aortic valve replacement (cow); Hypertension; CVA; esophageal problems; ll1 - Immunization history:: Adult Immunizations unknown. - Social history:: Smoking status: Patient denies any tobacco usage or history of. ROS: 01/24 07:43 Constitutional: Negative for fever, chills, and weight loss, Eyes: Negative for injury, kdr pain, redness, and discharge, Neck: Negative for injury, pain, and swelling, Cardiovascular: Negative for chest pain, palpitations, and edema, Back: Negative for injury and pain, : Negative for injury, bleeding, discharge, and swelling, MS/Extremity: Negative for injury and deformity, Skin: Negative for injury, rash, and discoloration, Neuro: Negative for headache, weakness, numbness, tingling, and seizure activity. Psych: Negative for depression, anxiety, suicide ideation, homicidal ideation, and hallucinations, Allergy/Immunology: Negative for hives, rash, and allergies, Endocrine: Negative for neck swelling, polydipsia, polyuria, polyphagia, and marked weight changes, Hematologic/Lymphatic: Negative for swollen nodes, abnormal bleeding, and unusual bruising. Respiratory: Positive for cough, dyspnea on exertion, shortness of breath, at rest. wheezing, expiratory, Negative for hemoptysis, sputum production. Abdomen/GI: Positive for nausea and vomiting. Exam: 07:43 Constitutional: This is a well developed, well nourished patient who is awake, alert, kdr and in no acute distress. Head/Face: Normocephalic, atraumatic. Eyes: Pupils equal round and reactive to light, extra-ocular motions intact. Lids and lashes normal. Conjunctiva and sclera are non-icteric and not injected. Cornea within normal limits. Periorbital areas with no swelling, redness, or edema. Neck: Trachea midline, no thyromegaly or masses palpated, and no cervical lymphadenopathy. Supple, full range of motion without nuchal rigidity, or vertebral point tenderness. No Meningismus. Chest/axilla: Normal chest wall appearance and motion. Nontender with no deformity. No lesions are appreciated. Cardiovascular: Regular rate and rhythm with a normal S1 and S2. No gallops, murmurs, or rubs. Normal PMI, no JVD. No pulse deficits. Back: No spinal tenderness. No costovertebral tenderness. Full range of motion. Skin: Warm, dry with normal turgor. Normal color with no rashes, no lesions, and no evidence of cellulitis. MS/ Extremity: Pulses equal, no cyanosis. Neurovascular intact. Full, normal range of motion. Neuro: Awake and alert, GCS 15, oriented to person, place, time, and situation. Cranial nerves II-XII grossly intact. Motor strength 5/5 in all extremities. Sensory grossly intact. Cerebellar exam normal. Normal gait. Psych: Awake, alert, with orientation to person, place and time. Behavior, mood, and affect are within normal limits. 07:43 Respiratory: moderate respiratory distress is noted, severe repiratory distress is noted, Respirations: labored breathing, that is moderate, Breath sounds: rales, rhonchi, wheezing: Vital Signs: 01/23 12:59 BP 182 / 125; Pulse 118; Resp 30; Temp 98.2; Pulse Ox 95% on R/A; ph 13:29 BP 179 / 103; Pulse 109; Resp 24; Pulse Ox 94% on R/A; ph 14:18 BP 131 / 89; Pulse 103; Resp 18; Pulse Ox 93% on R/A; ph 15:32 BP 154 / 100; Pulse 109; Resp 18; Pulse Ox 92% on R/A; ph MDM: 16:33 Patient medically screened. [facility] 01/24 07:43 Data reviewed: vital signs, nurses notes, lab test result(s), radiologic studies. kdr Counseling: I had a detailed discussion with the patient and/or guardian regarding: the historical points, exam findings, and any diagnostic results supporting the discharge/admit diagnosis, lab results, radiology results, the need for further work-up and treatment in the hospital. Physician consultation: Thanh Mohan MD regarding consult, patient's condition, need to come to ED to see patient, and will see patient in ED, shortly. Admission orders: after a detailed discussion of the patient's condition and case, the admit orders are written by me. 01/23 13:08 Order name: Basic Metabolic Panel [facility] 01/23 13:08 Order name: CBC with Diff [facility] 01/23 13:08 Order name: LFT's [facility] 01/23 13:08 Order name: Magnesium [facility] 01/23 13:08 Order name: NT PRO-BNP [facility] 01/23 13:08 Order name: PT-INR [facility] 01/23 13:08 Order name: CXR XRAY [facility] 01/23 13:08 Order name: Troponin (emerg Dept Use Only) [facility] 01/23 13:08 Order name: EKG; Complete Time: 13:09 [facility] 01/23 13:08 Order name: Cardiac monitoring; Complete Time: 13:12 [facility] 01/23 13:08 Order name: EKG - Nurse/Tech; Complete Time: 16:33 [facility] 01/23 13:08 Order name: IV Saline Lock; Complete Time: 13:12 [facility] 01/23 13:08 Order name: Labs collected and sent; Complete Time: 13:12 [facility] 01/23 13:08 Order name: O2 Per Protocol; Complete Time: 13:12 [facility] 01/23 13:08 Order name: O2 Sat Monitoring; Complete Time: 13:13 kdr Administered Medications: 01/23 13:02 Drug: Albuterol - atroVENT (3:1) (2.5 mg - 0.5 mg) 3 ml Route: Nebulizer; ph 13:30 Follow up: Response: No adverse reaction ph 13:05 Drug: SOLU-Medrol 125 mg Route: IVP; Site: right hand; ph 13:30 Follow up: Response: No adverse reaction ph 13:12 Drug: Magnesium Sulfate 1 grams Route: IVPB; Infused Over: 1 hrs; Site: right hand; ph 14:15 Follow up: Response: No adverse reaction; IV Status: Completed infusion ph 13:23 Drug: Glucagon 1 mg Route: IVP; Site: right hand; em 14:00 Follow up: Response: No adverse reaction ph 13:48 Drug: Zofran (Ondansetron) 4 mg Route: IVP; Site: right hand; em 15:00 Follow up: Response: No adverse reaction; Vomiting unchanged ph 16:15 Drug: Zofran (Ondansetron) 4 mg Route: IVP; Site: right hand; ph 16:30 Follow up: Response: No adverse reaction ph Disposition: 01/24/20 16:33 Hospitalization ordered by Thanh Mohan for Observation. Preliminary diagnosis is Esophageal obstruction. - Bed requested for Operating Room. - Status is Observation. ph - Condition is Fair. - Problem is new. - Symptoms have improved. Signatures: Dispatcher [employer] EDWY Madhu Porter MD MD kdr Juno Mcdaniel RN RN Kelsi Ibarra RN RN Felice Carrizales RN RN ll1 Corrections: (The following items were deleted from the chart) 17:00 16:33 Hospitalization Ordered by Thanh Mohan MD for Observation. Preliminary diagnosis ph is Esophageal obstruction. Bed requested for Operating Room. Status is Observation. Condition is Fair. Problem is new. Symptoms have improved. kdr
[2020-01-24] MEDS ORDERED: propofoL 200 MG/20 ML VIAL IV ONE (16:40)
[2020-01-24] MEDS ORDERED: LIDOCAINE 1% MPF 5 ML VIAL ONE (16:40)
--- NOTE | 2020-01-24 17:20 | ENDO RPT ---
[address], [address] EGD PROCEDURE REPORT EXAM DATE: 01/24/2020 PATIENT NAME: Erick Rodriguez MR#: [id number] BIRTHDATE: 1950 ATTENDING: Thanh Mohan DR STATUS: inpatient - 7 RHINESTONE SETTER: Venkatesh Glass and Yaneth vAelar RN INDICATIONS: The patient is a 69 yr old Male here for an EGD due to foreign body and Food Impaction PROCEDURE PERFORMED: EGD with foreign body removal MEDICATIONS: Per Anesthesia. TOPICAL ANESTHETIC: none CONSENT: The patient understands the risks and benefits of the procedure and understands that these risks include, but are not limited to: sedation, allergic reaction, infection, perforation and/or bleeding. Alternative means of evaluation and treatment include, among others: physical exam, x-rays, and/or surgical intervention. The patient elects to proceed with this endoscopic procedure. DESCRIPTION OF PROCEDURE: During intra-op preparation period all mechanical medical equipment was checked for proper function. Hand hygiene and appropriate measures for infection prevention was taken. Procedure, possible complications, and alternatives including but not limited to the possibility of bleeding, perforation, tear, infection, sepsis, need for surgery, need for blood transfusion, and anesthesia related complications were explained to the patient. After the risks, benefits and alternatives of the procedure were thoroughly explained, Informed consent was verified, confirmed and timeout was successfully executed by the treatment team. The patient was placed in the left lateral position. The patient was anesthetized with topical anesthesia. Through the anesthetized oropharyngeal area, the scope was passed without any difficulty. The EG-[id number] ([id number]) endoscope was introduced through the mouth and advanced to the stomach body. Retroflexed views revealed a moderate sized hiatal hernia. The gastroscope was then slowly withdrawn and removed. Food impacted @ Hiatal Hernia - Pushed into stomach with Scope, LA Class C esophagitis was found in the lower esophagus. A moderate sized hiatal hernia was found in the gastroesophageal junction. Multiple erosions were found in the gastroesophageal junction. ADVERSE EVENTS: There were no complications. IMPRESSIONS: 1. Food impacted @ Hiatal Hernia - Pushed into stomach with Scope 2. LA Class C esophagitis was found in the lower esophagus 3. A moderate sized hiatal hernia was found in the gastroesophageal junction 4. Multiple erosions were found in the gastroesophageal junction RECOMMENDATIONS: 1. follow-up: GI lab 2 week(s) 2. anti-reflux regimen 3. Liquid Diet x 3 days, then resume prior diet REPEAT EXAM: Thanh Mohan DR eSigned: Thanh Mohan DR 01/24/2020 5:19 PM cc: CPT CODES: 03165 Upper gastrointestinal endoscopy including esophagus, stomach, and either the duodenum and/or jejunum as appropriate; with removal of foreign body ICD9 CODES: 935.1 Foreign body in esophagus PATIENT NAME: Erick RodriguezTessie MR#: [id number]
[2020-01-24 17:42] VITALS: TEMP 98.4
[2020-01-24 18:00] VITALS: BP 118/60; O2SAT 94
--- NOTE | 2020-01-25 05:54 | EKG ---
Test Date: 2020-01-24 Test Time: 16:14:13 Bias Machine Operator Helper: BONY MEASUREMENT RESULTS: Intervals: Rate: 105 [place]: 176 QRSD: 92 QT: 350 QTc: 462 [place]: P: 46 [place]: 176 QRS: 25 T: 53 INTERPRETIVE STATEMENTS: Sinus tachycardia Anterior infarct, age undetermined Abnormal ECG Compared to ECG 10/14/2019 11:14:01 Sinus rhythm no longer present Myocardial infarct finding still present Electronically Signed On 01-25-20 05:53:39 CDT by Bacilio Ibarra
--- NOTE | 2020-01-25 13:03 | DN ---
Date of Procedure: 01/24/2020 Surgeon: Thanh Mohan MD, Brief History Of Present Illness: Patient is a 69-year-old male who was eating a chili free tofu ear lier today with jaswindere and he noted that the food got impacted in his esophagus and as such, he cou ld not clear his secretions. He had multiple episodes of attempted vomiting without much production. He did start to have some emesis recently, however, he continues to feel that he has this food stuc k in his throat. He has had this episode before in the past with a food impaction back in September last year and he has had a balloon dilatation for the above-stated issue. He currently has the [facility] said issues with inability to clear secretions completely and has no other complaints at this time. Past Medical History: Significant for hypertension, paroxysmal atrial fibrillation, hypothyroidism, sleep apnea, stroke with right-sided hemiparesis, aortic valve stenosis, GERD, prostate cancer, depre ssion, hyperlipidemia, rib fractures, pneumonia. Past Surgical History: Included a bioprosthetic aortic valve replacement, right internal carotid end arterectomy, CABG, and prostatectomy. Family History: Noncontributory. Allergies: HE IS ALLERGIC TO SULFA. Home Medications: Aspirin, amlodipine, baclofen, Lexapro, meclizine, Zocor, Altace. Review of Systems: Ten-point review of systems other than HPI, currently denies. Physical Examination: General: At the time of my examination, he is awake, alert, oriented. Psychiatric: He is appropriate conversive. HEENT: He is normocephalic. He has some mild facial weakness. Oropharynx is clear. Neck: Supple. No JVD. Chest: Normal expansion and excursion. Cardiovascular: Regular rate and rhythm. He has an audible murmur. Abdomen: Soft. Extremities: No clubbing, cyanosis, edema. Neuro: He has right-sided paralysis. Skin: Warm and dry. Laboratory Data: Reveals a white count 9.4, hemoglobin is 15.9, hematocrit of 48.1, platelet count i s 304. His neutrophils are 52%. PT is 12.3, INR 1.04. Sodium is 139, potassium 4.0, chloride 105, carbon dioxide 24, BUN 14, creatinine is 1.4, glucose 97. His calcium is 9.0, magnesium 2.2, total b ilirubin 0.7, AST 17, ALT 26, alkaline phosphatase is 79. He had a chest x-ray, which did not show a ny foreign bodies. Assessment And Plan: This 69-year-old male with likely recurrent food impaction in his gastroesophag eal junction. 1.IV fluid hydration. 2.Patient has had a trial of medication to pass this impaction with glucagon unsuccessfully and as s uch I have explained the risks, benefits, and alternatives of esophagogastroduodenoscopy including bu t not limited to bleeding, infection, damage to surrounding tissue, need further operative procedures . The patient agrees to proceed as indicated. SAM/SEBASTIAN Voice ID: [id number] Report ID: [id number]
== END 2020-01-24 18:00 | disposition home or self-care (01) ==
LOC: ER 12:47
PROC: 0DJ08ZZ Inspection of Upper Intestinal Tract, Via Natural or Artificial Opening Endoscopic (ICD-10-PCS; principal; 2020-01-24 13:00)
DX: T18.128A Food in esophagus causing other injury, initial encounter (principal); X58.XXXA Exposure to other specified factors, initial encounter; Y93.9 Activity, unspecified; Y92.9 Unspecified place or not applicable; K20.9 Esophagitis, unspecified; K44.9 Diaphragmatic hernia without obstruction or gangrene; K25.9 Gastric ulcer, unspecified as acute or chronic, without hemorrhage or perforation
CPT/HCPCS: 96365; 93005; 85025; 80048; 36415; 83735; 85610; 80076; 84484; 83880; 71045; 96375; 99291; 99292; 43235; J2704; J1610; J3475; J7030 ×2; J2930; J2405 ×2; J2250; J3010